=== PATIENT | male | born 1960 | race Caucasian/White ===

== ENCOUNTER 2017-10-06 11:45 | Inpatient (IN) | payer MEDICARE, MEDICAID ==
--- NOTE | 2017-10-06 11:54 | ED Physician Chart ---
ED Chief Complaint/HPI - Patient Information Date Seen:: 10/06/17 Time Seen:: 11:45 Chief Complaint:: Back Pain History of Present Illness:: onset x 3 days of back pain due to a sacral decubitus ulcer that will need debridement; pt denies recent trauma, H/As, neck pain, C/P, SOB, Abd. Pain, A/N/ V/D/C, fever, chills, or urinary s/s Historian:: Patient, EMS Review:: Nurse's Note Reviewed, EMS run form Reviewed ED Review of Systems - Review of Systems General/Constitutional: Fever, No chills, No weight loss, No weakness, No diaphoresis, No edema, No loss of appetite Skin: No skin lesions, No rash, No bruising Head: No headache, No light-headedness Eyes: No loss of vision, No pain, No diplopia ENT: No earache, No nasal drainage, No sore throat, No tinnitus Neck: No neck pain, No swelling, No thyromegaly, No stiffness, No mass noted Cardio Vascular: No chest pain, No palpitations, No PND, No orthopnea, No edema Pulmonary: No SOB, No cough, No sputum, No wheezing GI: No nausea, No vomiting, No diarrhea, No pain, No melena, No hematochezia, No constipation, No hematemesis G/U: No dysuria, No frequency, No hematuria Musculoskeletal: Bone or joint pain, Back pain, Muscle pain Endocrine: Polyuria, Polydipsia Psychiatric: Prior psych history, No depression, Anxiety, No suicidal ideation, No homicidal ideation, Auditory hallucination, No visual hallucination Hematopoietic: No bruising, No lymphadenopathy Allergic/Immuno: No urticaria, No angioedema Neurological: No syncope, No focal symptoms, No weakness, No paresthesia, No headache, No seizure, No dizziness, No confusion, No vertigo ED Past Medical History - Past Medical History Obtainable: Yes Past Medical History: HTN, DM, Asthma/COPD, Arthritis Family History: Diabetes Melitus, HTN Social History: Smoker, No Alcohol, No Drug Use, Single, Care Facility Surgical History: other (Bilateral BKA Surgery) Psychiatricy History: Schizophrenia Medication: Reviewed ED Physical Exam - Physical Examination General/Constitutional: Awake, Well-developed, well-nourished, Alert, No distress, GCS 15, Non-toxic appearing, Ambulatory Head: Atraumatic Eyes: Lids, conjuctiva normal, PERRL, EOMI Skin: Nl inspection, No rash, No skin lesions, No ecchymosis, Well hydrated, No lymphadenopathy Other Skin comments:: + Sacral Decubitus Ulcer with cellulitis ENMT: External ears, nose nl, TM canals nl, Nasal exam nl, Lips, teeth, gums nl , Oropharynx nl, Tonsils nl Neck: Nontender, Full ROM w/o pain, No JVD, No nuchal rigidity, No bruit, No mass, No stridor Respiratory: Nl effort/Exclusion, Clear to Auscultation, No Wheeze/Rhonchi/Rales Cardio Vascular: RRR, No murmur, gallop, rubs, NL S1 S2, Carotid/Femoral/Distal pulses equal bilaterally GI: No tenderness/rebounding/guarding, No organomegaly, No hernia, Normal BS's, Nondistended, No mass/bruits, No McBurney tenderness : No CVA tenderness Extremities: No tenderness or effusion, Full ROM, normal strength in all extremities, No edema, Normal digits & nails Neuro/Psych: Alert/oriented, DTR's symmetric, Normal sensory exam, Normal motor strength, Judgement/insight normal, Mood normal, Normal gait, No focal deficits Misc: Normal back, No paraspinal tenderness ED Labs/Radiology/EKG Results - Lab Results Comments:: WBC: 13.2; Na+: 134 - Radiology Results Comments:: NAD - EKG Interpretations EKG Time:: 12:00 Rate & Rhythm: 104; ST Comments:: non-specific st-t changes ED Septic Shock - . Is Septic Shock (SBP<90, OR Lactate>4 mmol\L) present?: No ED Reassessment (Disposition) - Reassessment Reassessment Condition:: Improved - Diagnosis Diagnosis:: Decubitus Ulcer; cellulitis; Leukocytosis; Hyponatremia - Aftercare/Follow up Instructions Aftercare/Follow-Up Instructions:: Counseled pt regarding lab results/diagnosis & need follow up - Patient Disposition Discharge/Transfer:: Acute Care w/in this hosp Accepting Physician:: Dr. Kraft Time Called:: 1300 Time Responded:: 13:00 Admitted to:: Med/Surg Spoke to:: Dr. Kraft Admitting Medical Physician:: Dr. Kraft Condition at Disposition:: Stable, Improved
--- NOTE | 2017-10-06 12:31 | Diagnostic Imaging Report ---
Portable chest x-ray History: Pain Allowing for portable technique the heart size is normal. No focal pulmonary parenchymal processes. No hilar or mediastinal abnormalities. Impression: No acute abnormalities.
[2017-10-06 12:35] LABS: URINE BILIRUBIN NEGATIVE (NEGATIVE); URINE BLOOD NEGATIVE (NEGATIVE); URINE GLUCOSE (UA) NEGATIVE (NEGATIVE); URINE KETONE NEGATIVE (NEGATIVE); URINE PROTEIN 100 mg/dL (NEGATIVE); URINE UROBILINOGEN 0.2 E.U./dL (0.2 - 1.0)
[2017-10-06 12:38] LABS: HEMOGLOBIN 17.3 gm/dL (12-16); MEAN CORPUSCULAR HGB CONC 33.3 pg (28.0-36.0); MEAN PLATELET VOLUME 8.5 fl; PLATELET COUNT 264 Th/cmm (150-400); RED BLOOD COUNT 5.97 Mil/cmm (4.30-5.70); RED CELL DISTRIBUTION WIDTH 14.4 % (11.5-20.0)
[2017-10-06 12:39] LABS: WHITE BLOOD COUNT 13.2 Th/cmm (4.8-10.8)
[2017-10-06 12:42] LABS: INR 1.08 (0.5-1.4); PROTHROMBIN TIME (TEST) 11.2 SECONDS (9.5-11.5)
[2017-10-06 12:53] LABS: ALB/GLOB RATIO 1.1 (1.0-1.8); ALKALINE PHOSPHATASE 82 U/L (34-104); ANION GAP 9.2 (7.0-16.0); BAND NEUTROPHILE 2 % (0-10); BILIRUBIN,TOTAL 0.4 mg/dL (0.3-1.0); BUN - UREA NITROGEN 11 mg/dL (7-25); BUN/CREATININE RATIO 18.3; CALCIUM SERUM 9.7 mg/dL (8.6-10.3); CARBON DIOXIDE 26.8 mEq/L (21.0-31.0); CHLORIDE 102 mEq/L (98-107); CREATININE - SERUM 0.6 mg/dL (0.7-1.3); EOSINOPHIL 4 % (0-5); GLUCOSE 139 mg/dL (70-105); NEUTROPHILS 75 % (40-80); SGOT 21 U/L (13-39); SGPT/ALT 16 U/L (7-52); SODIUM SERUM 134 mEq/L (136-145); TOTAL CELLS COUNTED 100
[2017-10-06 13:34] LABS: URINE COLOR YELLOW
[2017-10-06 13:36] LABS: URINE RBC 0-2 /hpf (0-5); URINE WBC 0-2 /hpf (0-5)
[2017-10-06 13:37] LABS: URINE BACTERIA OCCASIONAL /hpf (NONE SEEN); URINE EPITHELIAL CELLS FEW /lpf (FEW)
[2017-10-06 16:24] VITALS: BP 133/107
[2017-10-06] MEDS: HYDROmorphone 2 mg/mL 1mL Vial IVP PRN ×2 (18:01→21:40)
[2017-10-06] MEDS ORDERED: HYDROmorphone 2 mg/mL 1mL Vial IM PRN (19:42)
[2017-10-06] MEDS ORDERED: Magnesium Hydroxide (MOM) 30 mL UDC PO PRN (19:42)
[2017-10-06] MEDS ORDERED: INSULIN ASPART SLIDING SCALE 100 UNITS/ML UNIT SUBQ SCH (21:00)
[2017-10-06] MEDS ORDERED: Non-Formulary Item 1 EA (Amino Acids/Protein Hydrolys [Pro-Stat Awc Liquid] 30 ML) PO SCH (21:00)
[2017-10-06] MEDS: INSULIN ASPART, RECOMBINANT 100 UNITS/ML SUBQ SCH (21:53)
[2017-10-07] MEDS: HYDROmorphone 2 mg/mL 1mL Vial IVP PRN ×8 (00:45→23:47)
[2017-10-07] MEDS: INSULIN ASPART, RECOMBINANT 100 UNITS/ML SUBQ SCH ×4 (07:10→23:40)
[2017-10-07] MEDS: Aspirin 81mg Chewable Tab PO SCH (08:11)
[2017-10-07] MEDS ORDERED: Non-Formulary Item 1 EA (Duloxetine Hcl [Cymbalta] 20 MG) PO SCH (09:00)
[2017-10-07] MEDS ORDERED: Non-Formulary Item 1 EA (Arginine/Glutamine/Calcium Hmb [Juven Packet] 1 PDS) PO SCH (09:00)
[2017-10-07] MEDS: Multivitamin w/ Minerals Tab PO SCH ×2 (10:56→10:57)
--- NOTE | 2017-10-07 11:08 | Consultation ---
Consult Note - Consult Note Service Date: 10/07/17 Referring Physician: Yunier Kraft Consult Note: PHYSICIAN Consultation Note: Date of Admission: 10/06/17 Purpose of Consultation: Leukocytosis. Chief Complaint: Patient CHAPINCITO MCGEE was admitted to [facility] with DECUBITIS ULCER, CELLULITIS. History of Present Illness: 56 y male with history of DM2, B/L above knee amputations, obesity brought from SNF for 3 days of back pain due to right gluteal decubitus ulcer. He denies recent trauma, H/As, neck pain, C/P, SOB, Abd. Pain, A/N/V/D/C, fever, chills, or urinary s/s. Patient was started on vanco IV and ID consult was called for antibiotic management,. He was found to have middle finger burn wound with intact skin. Past Medical History: Allergies Allergy/AdvReac Type Severity Reaction Status Date / Time permethrin [From Elimite] Allergy Verified 10/06/17 11:56 pineapple Allergy Verified 10/06/17 11:56 Vital Signs Temp 97.5 F 10/07/17 08:00 Pulse 89 10/07/17 08:16 Resp 16 10/07/17 08:00 BP 161/94 10/07/17 08:16 Pulse Ox 92 10/07/17 08:00 Intake & Output 10/06/17 10/07/17 10/07/17 18:59 06:59 18:59 Intake Total 250 150 Balance 250 150 Weight (lbs) 74.843 kg 74.435 kg Intake: Intake, IV Amount 250 Vancomycin HCl 1 gm In 250 Sodium Chloride 0.9% 250 ml @ 165 mls/hr IV X1 ONE Rx#:[id number] Oral 150 Other: Stool Characteristics Liquid Liquid Liquid Laboratory Results - last 24 hr 10/06/17 10/07/17 21:46 07:09 POC Glucose 172 H 169 H Home Medication Medication Instructions Recorded Type Acetaminophen [Tylenol] 650 mg PO Q4HR PRN 10/06/17 History Amino Acids/Protein Hydrolys 30 ml PO TID 10/06/17 History [Pro-Stat Sugar Free Awc 887 ml] Amitriptyline HCl [Amitriptyline 50 mg PO HS 10/06/17 History HCl*] Amoxicillin [Amoxil] 500 mg PO Q8H 10/06/17 History Arginine/Glutamine/Calcium Hmb 1 pds PO BID 10/06/17 History [Carlos] Ascorbic Acid [Vitamin C] 500 mg PO DAILY 10/06/17 History Aspirin [Aspirin Chewable] 81 mg PO DAILY 10/06/17 History Baclofen [Baclofen*] 10 mg PO Q8H 10/06/17 History Cholecalciferol (Vitamin D3) 1 cap PO DAILY 10/06/17 History [Vitamin D3] Docusate Sodium [Colace] 100 mg PO Q6H 10/06/17 History Duloxetine HCl [Cymbalta] 20 mg PO DAILY 10/06/17 History HYDROmorphone [Dilaudid] 3 mg IM Q6H PRN 10/06/17 History Insulin Aspart, Recombinant 0 unit SUBQ ACHS 10/06/17 History [NovoLOG FLEXPEN] Lisinopril [Zestril] 10 mg PO DAILY 10/06/17 History Loratadine [Claritin] 10 mg PO DAILY 10/06/17 History Lorazepam [Ativan] 0.25 mg PO Q24H PRN 10/06/17 History Magnesium Hydroxide [Milk of 30 ml PO Q24H PRN 10/06/17 History Magnesia] Multivit-Min/Iron Fum/Folic AC 1 tab PO DAILY 10/06/17 History [Nature's Blend Multi Vitamin and Minerals] Pregabalin [Lyrica] 150 mg PO BID 10/06/17 History Zinc Gluconate 220 mg PO DAILY 10/06/17 History Current Medications Generic Name Dose Route Start Last Admin Trade Name Freq PRN Reason Stop Dose Admin Acetaminophen 650 mg 10/06/17 19:42 Tylenol PO 12/05/17 19:41 Q4HR PRN FEVER TEMP >101, AND MILD PAIN Amitriptyline HCl 50 mg 10/07/17 21:00 Elavil PO 12/06/17 20:59 HS AMPARO Ascorbic Acid 500 mg 10/07/17 09:00 10/07/17 08:12 Vitamin C PO 12/06/17 08:59 500 mg DAILY AMPARO Administration Aspirin 81 mg 10/07/17 09:00 10/07/17 08:11 Aspirin Chewable PO 12/06/17 08:59 81 mg DAILY AMPARO Administration Baclofen 10 mg 10/06/17 21:00 10/07/17 05:40 Lioresal PO 12/05/17 20:59 10 mg Q8HR AMPARO Administration Cholecalciferol 1,000 iu 10/07/17 11:00 10/07/17 10:58 Vitamin D3 PO 12/06/17 10:59 Not Given DAILY AMPARO Docusate Sodium 100 mg 10/06/17 19:45 10/07/17 08:24 Colace PO 12/05/17 19:44 Not Given Q6H [facility]ARO Hydromorphone HCl 2 mg 10/06/17 17:21 10/07/17 08:11 Dilaudid IVP 12/05/17 17:20 2 mg Q3HR PRN Administration Severe Pain Hydromorphone HCl 3 mg 10/06/17 19:42 Dilaudid IM 12/05/17 19:41 Q6H PRN PAIN (SEVERE PAIN) Vancomycin HCl 1.5 gm/ Sodium 500 mls @ 250 mls/hr 10/07/17 12:00 Chloride IV 12/06/17 11:59 Q12H [facility] Insulin Aspart 0 units 10/06/17 21:00 10/07/17 07:10 Novolog SUBQ 12/05/17 20:59 Not Given ACHS [facility] Protocol Lisinopril 10 mg 10/07/17 09:00 10/07/17 08:16 Zestril PO 12/06/17 08:59 10 mg DAILY [facility]ARO Administration Loratadine 10 mg 10/07/17 09:00 10/07/17 08:12 Claritin PO 12/06/17 08:59 10 mg DAILY [facility] Administration Lorazepam 0.25 mg 10/06/17 19:42 Ativan PO 12/05/17 19:41 Q24H PRN Anxiety Protocol Magnesium Hydroxide 30 ml 10/06/17 19:42 Milk Of Magnesia PO 12/05/17 19:41 Q24H PRN Constipation Miscellaneous 1 ea 10/06/17 17:26 Vancomycin Iv Per Pharmacy [facility] 12/05/17 17:25 PRN PRN PROTOCOL Miscellaneous 30 ml 10/06/17 21:00 Amino Acids/Protein Hydrolys [Pro-Stat Awc Liquid] PO 12/05/17 20:59 TID AMPARO Miscellaneous 1 pds 10/07/17 09:00 Arginine/Glutamine/Calcium Hmb [Carlos Packet] PO 12/06/17 08:59 BID AMPARO Miscellaneous 20 mg 10/07/17 09:00 Duloxetine Hcl [Cymbalta] PO 12/06/17 08:59 DAILY [facility] Ondansetron HCl 4 mg 10/06/17 17:21 Zofran IV 12/05/17 17:20 Q6H PRN Nausea / Vomiting Pregabalin 150 mg 10/07/17 09:00 10/07/17 08:12 Lyrica PO 12/06/17 08:59 150 mg BID [facility] Administration Zinc Sulfate 220 mg 10/07/17 11:00 10/07/17 10:58 Zinc Sulfate PO 12/06/17 10:59 Not Given DAILY [facility] Review of Systems: A 12 point ROS was reviewed with the pertinent positive and negatives noted in the HPI. Gen: Patient denies any fever, chills, night sweats, weight loss. C/o generalized weakness. HEENT: He denies any diplopia, photophobia, earache, sore throat. RS: He denies any cough or shortness of breath. CVS: He denies any CP, palpitations, and leg swelling. GI: He denies any abdominal pain, nausea, vomiting, diarrhea, loss of appetite. : He denies any dysuria, hematuria. MS: Denies any joint pain or swelling, denies any muscle pains. PIPE INSULATOR: Deneis any headaches, focal weakness, seizures. c/o dizziness since he has developed diarrhea. Social History Smoking Status Current every day smoker Drug Use Yes Alcohol Use Yes Family Medical History Family Medical History Start: 10/06/17 14: 26 Freq: ONCE Status: Active Document 10/06/17 17:03 CHEPE (Rec: 10/06/17 17:03 [id number]) Family Medical History Mother History Unknown Yes Physical Exam: General: Comfortable, obese. HEENT: Head: Normocephalic, atraumatic. Oral cavity moist pink tongue, eyes: no pallor, no icterus. Neck: supple no javd, no carotid bruit. Cardio: S1 and S2 WNL. Respiratory: Vesicular breath sounds. Abdominal: Soft NT ND BS. Genital/Urinary: deferred. Extremities: B/l AKAs Neurological: AA ox3, SKIN: There is stage 4 right gluteal wound with out erythema and discharge. No tenderness. Assessment: 1, Right Gluteal wound. 2. Right middle finger burn wound. 3. DM2. Plan: Wound care only. Thank you, Dr Kraft for involving me in taking care of this patient. Signed, Rajan Stoll M.D. [id number]/07/[id number]
[2017-10-07] MEDS: Vancomycin HCl 1.5 GM in Sodium Chloride 0.9% 500 ML IV SCH ×2 (12:11→23:48)
[2017-10-08] MEDS: HYDROmorphone 2 mg/mL 1mL Vial IVP PRN ×7 (02:51→22:17)
[2017-10-08] MEDS: INSULIN ASPART, RECOMBINANT 100 UNITS/ML SUBQ SCH ×4 (07:43→21:30)
--- NOTE | 2017-10-08 08:59 | History and Physical ---
History of Present Illness - HPI Vital Signs: Last Vital Signs Temp 98.7 F 10/08/17 04:00 Pulse 83 10/08/17 04:00 Resp 17 10/08/17 04:00 BP 126/78 10/08/17 04:00 Pulse Ox 96 10/08/17 04:00 Family Medical History - Family Member Mother History Unknown: Yes Living Status: Hx Family COPD: Yes - Medications Home Medications: Home Medication Medication Instructions Recorded Type Acetaminophen [Tylenol] 650 mg PO Q4HR PRN 10/06/17 History Amino Acids/Protein Hydrolys 30 ml PO TID 10/06/17 History [Pro-Stat Sugar Free Awc 887 ml] Amitriptyline HCl [Amitriptyline 50 mg PO HS 10/06/17 History HCl*] Amoxicillin [Amoxil] 500 mg PO Q8H 10/06/17 History Arginine/Glutamine/Calcium Hmb 1 pds PO BID 10/06/17 History [Carlos] Ascorbic Acid [Vitamin C] 500 mg PO DAILY 10/06/17 History Aspirin [Aspirin Chewable] 81 mg PO DAILY 10/06/17 History Baclofen [Baclofen*] 10 mg PO Q8H 10/06/17 History Cholecalciferol (Vitamin D3) 1 cap PO DAILY 10/06/17 History [Vitamin D3] Docusate Sodium [Colace] 100 mg PO Q6H 10/06/17 History Duloxetine HCl [Cymbalta] 20 mg PO DAILY 10/06/17 History HYDROmorphone [Dilaudid] 3 mg IM Q6H PRN 10/06/17 History Insulin Aspart, Recombinant 0 unit SUBQ ACHS 10/06/17 History [NovoLOG FLEXPEN] Lisinopril [Zestril] 10 mg PO DAILY 10/06/17 History Loratadine [Claritin] 10 mg PO DAILY 10/06/17 History Lorazepam [Ativan] 0.25 mg PO Q24H PRN 10/06/17 History Magnesium Hydroxide [Milk of 30 ml PO Q24H PRN 10/06/17 History Magnesia] Multivit-Min/Iron Fum/Folic AC 1 tab PO DAILY 10/06/17 History [Nature's Blend Multi Vitamin and Minerals] Pregabalin [Lyrica] 150 mg PO BID 10/06/17 History Zinc Gluconate 220 mg PO DAILY 10/06/17 History - Allergies Allergies/Adverse Reactions: Allergies Allergy/AdvReac Type Severity Reaction Status Date / Time permethrin [From Elimite] Allergy Verified 10/06/17 11:56 pineapple Allergy Verified 10/06/17 11:56 - Lab Results All Lab Results last 24 hours: Laboratory Results - last 24 hr 10/07/17 10/07/17 10/07/17 10:55 16:31 20:49 POC Glucose 181 H 170 H 165 H 10/08/17 06:08 POC Glucose 146 H - Assessment Assessment: Current Active Problems Problem Status Onset FESTERING COCCYX PRESSURE ULCER Acute
[2017-10-08] MEDS: Multivitamin w/ Minerals Tab PO SCH (09:46)
[2017-10-08] MEDS: Aspirin 81mg Chewable Tab PO SCH (09:46)
[2017-10-08] MEDS: Vancomycin HCl 1.5 GM in Sodium Chloride 0.9% 500 ML IV SCH ×2 (12:21→20:22)
[2017-10-08] MEDS: Venelex 60gm Tube TP SCH (12:42)
--- NOTE | 2017-10-08 13:07 | Infectious Disease Prog Note ---
Infectious Disease Subjective - Review of Systems Service Date: 10/08/17 Subjective: no change. Infectious Disease Objective - Results Result Diagrams: 10/06/17 12:10 10/06/17 12:10 Recent Labs: Laboratory Last Values WBC 13.2 Th/cmm (4.8-10.8) H 10/06/17 12:10 RBC 5.97 Mil/cmm (4.30-5.70) H 10/06/17 12:10 Hgb 17.3 gm/dL (12-16) 10/06/17 12:10 Hct 52.0 % (41.0-60) 10/06/17 12:10 MCV 87.0 fl (80-99) 10/06/17 12:10 MCH 29.0 pg (26.0-30.0) 10/06/17 12:10 MCHC Differential 33.3 pg (28.0-36.0) 10/06/17 12:10 RDW 14.4 % (11.5-20.0) 10/06/17 12:10 Plt Count 264 Th/cmm (150-400) 10/06/17 12:10 MPV 8.5 fl 10/06/17 12:10 Band Neutrophils % 2 % (0-10) 10/06/17 12:10 Neutrophils (Manual) 75 % (40-80) 10/06/17 12:10 Lymphocytes 12 % (20-50) L 10/06/17 12:10 Monocytes 7 % (2-10) 10/06/17 12:10 Eosinophils 4 % (0-5) 10/06/17 12:10 PT 11.2 SECONDS (9.5-11.5) 10/06/17 12:10 INR 1.08 (0.5-1.4) 10/06/17 12:10 PTT (Actin FS) 33.4 SECONDS (26.0-38.0) 10/06/17 12:10 Sodium 134 mEq/L (136-145) L 10/06/17 12:10 Potassium 4.0 mEq/L (3.5-5.1) 10/06/17 12:10 Chloride 102 mEq/L (98-107) 10/06/17 12:10 Carbon Dioxide 26.8 mEq/L (21.0-31.0) 10/06/17 12:10 Anion Gap 9.2 (7.0-16.0) 10/06/17 12:10 BUN 11 mg/dL (7-25) 10/06/17 12:10 Creatinine 0.6 mg/dL (0.7-1.3) L 10/06/17 12:10 Est GFR ( Amer) > 60.0 ml/min (>90) 10/06/17 12:10 Est GFR (Non-Af Amer) > 60.0 ml/min 10/06/17 12:10 BUN/Creatinine Ratio 18.3 10/06/17 12:10 Glucose 139 mg/dL (70-105) H 10/06/17 12:10 POC Glucose 136 MG/DL (70 - 105) H 10/08/17 11:35 Whole Bld Lactic Acid 1.53 mmol/L (0.60-1.99) 10/06/17 12:10 Calcium 9.7 mg/dL (8.6-10.3) 10/06/17 12:10 Total Bilirubin 0.4 mg/dL (0.3-1.0) 10/06/17 12:10 AST 21 U/L (13-39) 10/06/17 12:10 ALT 16 U/L (7-52) 10/06/17 12:10 Alkaline Phosphatase 82 U/L (34-104) 10/06/17 12:10 Creatine Kinase 207 U/L (30-223) 10/06/17 12:10 Total Protein 7.5 gm/dL (6.0-8.3) 10/06/17 12:10 Albumin 3.9 gm/dL (4.2-5.5) L 10/06/17 12:10 Globulin 3.6 gm/dL 10/06/17 12:10 Albumin/Globulin Ratio 1.1 (1.0-1.8) 10/06/17 12:10 Urine Source MIDSTREAM 10/06/17 12:23 Urine Color YELLOW 10/06/17 12:23 Urine Clarity CLEAR (CLEAR) 10/06/17 12:23 Urine pH 7.0 (4.6 - 8.0) 10/06/17 12:23 Ur Specific [place] 1.010 (1.005-1.030) 10/06/17 12:23 Urine Protein 100 mg/dL (NEGATIVE) H 10/06/17 12:23 Urine Glucose (UA) NEGATIVE mg/dL (NEGATIVE) 10/06/17 12:23 Urine Ketones NEGATIVE mg/dL (NEGATIVE) 10/06/17 12:23 Urine Blood NEGATIVE (NEGATIVE) 10/06/17 12:23 Urine Nitrate NEGATIVE (NEGATIVE) 10/06/17 12:23 Urine Bilirubin NEGATIVE (NEGATIVE) 10/06/17 12:23 Urine Urobilinogen 0.2 E.U./dL (0.2 - 1.0) 10/06/17 12:23 Ur Leukocyte Esterase NEGATIVE (NEGATIVE) 10/06/17 12:23 Urine RBC 0-2 /hpf (0-5) H 10/06/17 12:23 Urine WBC 0-2 /hpf (0-5) 10/06/17 12:23 Ur Epithelial Cells FEW /lpf (FEW) 10/06/17 12:23 Urine Bacteria OCCASIONAL /hpf (NONE SEEN) 10/06/17 12:23 Vancomycin Trough 14.1 ug/mL (10-20) 10/08/17 11:00 - Physical Exam Vitals and I&O: Vital Signs Temp 97.0 F 10/08/17 08:00 Pulse 76 10/08/17 09:46 Resp 18 10/08/17 08:00 BP 110/54 10/08/17 09:46 Pulse Ox 95 10/08/17 08:00 Intake & Output 10/07/17 10/08/17 10/08/17 18:59 06:59 18:59 Intake Total 500 2650 Output Total 1800 Balance 500 850 Weight (lbs) 74.389 kg Intake: Intake, IV Amount 500 500 Vancomycin HCl 1.5 gm In 500 500 Sodium Chloride 0.9% 500 ml @ 250 mls/hr IV Q12H AMPARO Rx#:[id number] Oral 2150 Output: Urine 1800 Other: # Voids 2 # Bowel Movements 1 Stool Characteristics Liquid Liquid Liquid Active Medications: Current Medications Acetaminophen (Tylenol) 650 mg PO Q4HR PRN PRN Reason: FEVER TEMP >101, AND MILD PAIN Stop: 12/05/17 19:41 Amitriptyline HCl (Elavil) 50 mg PO HS AMPARO Stop: 12/06/17 20:59 Last Admin: 10/07/17 20:45 Dose: 50 mg Ascorbic Acid (Vitamin C) 500 mg PO DAILY [facility]O Stop: 12/06/17 08:59 Last Admin: 10/08/17 09:46 Dose: 500 mg Aspirin (Aspirin Chewable) 81 mg PO DAILY [facility] Stop: 12/06/17 08:59 Last Admin: 10/08/17 09:46 Dose: 81 mg Baclofen (Lioresal) 10 mg PO Q8HR [facility] Stop: 12/05/17 20:59 Last Admin: 10/08/17 12:22 Dose: 10 mg Cholecalciferol (Vitamin D3) 1,000 iu PO DAILY [facility] Stop: 12/06/17 10:59 Last Admin: 10/08/17 09:46 Dose: 1,000 iu Docusate Sodium (Colace) 100 mg PO Q6H [facility] Stop: 12/05/17 19:44 Last Admin: 10/08/17 08:36 Dose: Not Given Hydromorphone HCl (Dilaudid) 2 mg IVP Q3HR PRN PRN Reason: Severe Pain Stop: 12/05/17 17:20 Last Admin: 10/08/17 12:22 Dose: 2 mg Hydromorphone HCl (Dilaudid) 3 mg IM Q6H PRN PRN Reason: PAIN (SEVERE PAIN) Stop: 12/05/17 19:41 Vancomycin HCl 1.5 gm/ Sodium (Chloride) 500 mls @ 250 mls/hr IV Q12H [facility] Stop: 12/06/17 11:59 Last Admin: 10/08/17 12:21 Dose: 250 mls/hr Insulin Aspart (Novolog) 0 units SUBQ ACHS [facility]ARO PRN Reason: Protocol Stop: 12/05/17 20:59 Last Admin: 10/08/17 11:51 Dose: Not Given Lisinopril (Zestril) 10 mg PO DAILY [facility] Stop: 12/06/17 08:59 Last Admin: 10/08/17 09:46 Dose: 10 mg Loratadine (Claritin) 10 mg PO DAILY [facility] Stop: 12/06/17 08:59 Last Admin: 10/08/17 09:46 Dose: 10 mg Lorazepam (Ativan) 0.25 mg PO Q24H PRN; Protocol PRN Reason: Anxiety Stop: 12/05/17 19:41 Magnesium Hydroxide (Milk Of Magnesia) 30 ml PO Q24H PRN PRN Reason: Constipation Stop: 12/05/17 19:41 Miscellaneous (Vancomycin Iv Per Pharmacy) 1 ea PRN PRN PRN Reason: PROTOCOL Stop: 12/05/17 17:25 Miscellaneous (Duloxetine Hcl [Cymbalta]) 20 mg PO DAILY [facility] Stop: 12/06/17 08:59 Ondansetron HCl (Zofran) 4 mg IV Q6H PRN PRN Reason: Nausea / Vomiting Stop: 12/05/17 17:20 Pregabalin (Lyrica) 150 mg PO BID [facility] Stop: 12/06/17 08:59 Last Admin: 10/08/17 09:46 Dose: 150 mg Zinc Sulfate (Zinc Sulfate) 220 mg PO DAILY [facility] Stop: 12/06/17 10:59 Last Admin: 10/08/17 09:46 Dose: 220 mg General: no acute distress, well developed, well nourished HEENT: atraumatic, normocephalic, PERRLA Neck: supple, no thyromegaly Cardiovascular: S1S2, regular Lungs: clear to auscultation bilaterally, clear to percussion Abdomen: soft, other (right gluteal wound.), no tender, no distended Extremities: no cyanosis, no clubbing, no edema Neurological: awake Skin: other (right gluteal wound.) Infectious Disease Assmt/Plan - Problem List Patient Problems: All Active Problems FESTERING COCCYX PRESSURE ULCER (Acute) - Assessment Assessment: 1. right gluteal wound, no s/o infection. - Plan Plan: Wound care.
[2017-10-08] MEDS ORDERED: Vancomycin HCl 1.5 GM in Sodium Chloride 0.9% 500 ML IV SCH (14:00)
--- NOTE | 2017-10-08 15:37 | General Progress Note ---
Subjective - Review of Systems Service Date: 10/08/17 Events since last encounter: minimal info on chart on onset of right gluteal ulcer has bilateral AKA refused to have ulcer examined, very nasty language-alexis local wound care Objective - Results Result Diagrams: 10/06/17 12:10 10/06/17 12:10 Recent Labs: Laboratory Last Values WBC 13.2 Th/cmm (4.8-10.8) H 10/06/17 12:10 RBC 5.97 Mil/cmm (4.30-5.70) H 10/06/17 12:10 Hgb 17.3 gm/dL (12-16) 10/06/17 12:10 Hct 52.0 % (41.0-60) 10/06/17 12:10 MCV 87.0 fl (80-99) 10/06/17 12:10 MCH 29.0 pg (26.0-30.0) 10/06/17 12:10 MCHC Differential 33.3 pg (28.0-36.0) 10/06/17 12:10 RDW 14.4 % (11.5-20.0) 10/06/17 12:10 Plt Count 264 Th/cmm (150-400) 10/06/17 12:10 MPV 8.5 fl 10/06/17 12:10 Band Neutrophils % 2 % (0-10) 10/06/17 12:10 Neutrophils (Manual) 75 % (40-80) 10/06/17 12:10 Lymphocytes 12 % (20-50) L 10/06/17 12:10 Monocytes 7 % (2-10) 10/06/17 12:10 Eosinophils 4 % (0-5) 10/06/17 12:10 PT 11.2 SECONDS (9.5-11.5) 10/06/17 12:10 INR 1.08 (0.5-1.4) 10/06/17 12:10 PTT (Actin FS) 33.4 SECONDS (26.0-38.0) 10/06/17 12:10 Sodium 134 mEq/L (136-145) L 10/06/17 12:10 Potassium 4.0 mEq/L (3.5-5.1) 10/06/17 12:10 Chloride 102 mEq/L (98-107) 10/06/17 12:10 Carbon Dioxide 26.8 mEq/L (21.0-31.0) 10/06/17 12:10 Anion Gap 9.2 (7.0-16.0) 10/06/17 12:10 BUN 11 mg/dL (7-25) 10/06/17 12:10 Creatinine 0.6 mg/dL (0.7-1.3) L 10/06/17 12:10 Est GFR ( Amer) > 60.0 ml/min (>90) 10/06/17 12:10 Est GFR (Non-Af Amer) > 60.0 ml/min 10/06/17 12:10 BUN/Creatinine Ratio 18.3 10/06/17 12:10 Glucose 139 mg/dL (70-105) H 10/06/17 12:10 POC Glucose 136 MG/DL (70 - 105) H 10/08/17 11:35 Whole Bld Lactic Acid 1.53 mmol/L (0.60-1.99) 10/06/17 12:10 Calcium 9.7 mg/dL (8.6-10.3) 10/06/17 12:10 Total Bilirubin 0.4 mg/dL (0.3-1.0) 10/06/17 12:10 AST 21 U/L (13-39) 10/06/17 12:10 ALT 16 U/L (7-52) 10/06/17 12:10 Alkaline Phosphatase 82 U/L (34-104) 10/06/17 12:10 Creatine Kinase 207 U/L (30-223) 10/06/17 12:10 Total Protein 7.5 gm/dL (6.0-8.3) 10/06/17 12:10 Albumin 3.9 gm/dL (4.2-5.5) L 10/06/17 12:10 Globulin 3.6 gm/dL 10/06/17 12:10 Albumin/Globulin Ratio 1.1 (1.0-1.8) 10/06/17 12:10 Urine Source MIDSTREAM 10/06/17 12:23 Urine Color YELLOW 10/06/17 12:23 Urine Clarity CLEAR (CLEAR) 10/06/17 12:23 Urine pH 7.0 (4.6 - 8.0) 10/06/17 12:23 Ur Specific [place] 1.010 (1.005-1.030) 10/06/17 12:23 Urine Protein 100 mg/dL (NEGATIVE) H 10/06/17 12:23 Urine Glucose (UA) NEGATIVE mg/dL (NEGATIVE) 10/06/17 12:23 Urine Ketones NEGATIVE mg/dL (NEGATIVE) 10/06/17 12:23 Urine Blood NEGATIVE (NEGATIVE) 10/06/17 12:23 Urine Nitrate NEGATIVE (NEGATIVE) 10/06/17 12:23 Urine Bilirubin NEGATIVE (NEGATIVE) 10/06/17 12:23 Urine Urobilinogen 0.2 E.U./dL (0.2 - 1.0) 10/06/17 12:23 Ur Leukocyte Esterase NEGATIVE (NEGATIVE) 10/06/17 12:23 Urine RBC 0-2 /hpf (0-5) H 10/06/17 12:23 Urine WBC 0-2 /hpf (0-5) 10/06/17 12:23 Ur Epithelial Cells FEW /lpf (FEW) 10/06/17 12:23 Urine Bacteria OCCASIONAL /hpf (NONE SEEN) 10/06/17 12:23 Vancomycin Trough 14.1 ug/mL (10-20) 10/08/17 11:00 - Physical Exam Vitals and I&O: Vital Signs Temp 96.3 F 10/08/17 12:00 Pulse 77 10/08/17 12:00 Resp 18 10/08/17 12:00 BP 127/70 10/08/17 12:00 Pulse Ox 95 10/08/17 12:00 Intake & Output 10/07/17 10/08/17 10/08/17 18:59 06:59 18:59 Intake Total 500 2650 Output Total 1800 Balance 500 850 Weight (lbs) 74.389 kg Intake: Intake, IV Amount 500 500 Vancomycin HCl 1.5 gm In 500 500 Sodium Chloride 0.9% 500 ml @ 250 mls/hr IV Q12H [facility] Rx#:[id number] Oral 2150 Output: Urine 1800 Other: # Voids 2 # Bowel Movements 1 Stool Characteristics Liquid Liquid Liquid Active Medications: Current Medications Acetaminophen (Tylenol) 650 mg PO Q4HR PRN PRN Reason: FEVER TEMP >101, AND MILD PAIN Stop: 12/05/17 19:41 Amitriptyline HCl (Elavil) 50 mg PO HS [facility] Stop: 12/06/17 20:59 Last Admin: 10/07/17 20:45 Dose: 50 mg Ascorbic Acid (Vitamin C) 500 mg PO DAILY [facility] Stop: 12/06/17 08:59 Last Admin: 10/08/17 09:46 Dose: 500 mg Aspirin (Aspirin Chewable) 81 mg PO DAILY [facility] Stop: 12/06/17 08:59 Last Admin: 10/08/17 09:46 Dose: 81 mg Baclofen (Lioresal) 10 mg PO Q8HR [facility] Stop: 12/05/17 20:59 Last Admin: 10/08/17 12:22 Dose: 10 mg Cholecalciferol (Vitamin D3) 1,000 iu PO DAILY [facility] Stop: 12/06/17 10:59 Last Admin: 10/08/17 09:46 Dose: 1,000 iu Docusate Sodium (Colace) 100 mg PO Q6H [facility] Stop: 12/05/17 19:44 Last Admin: 10/08/17 14:43 Dose: Not Given Hydromorphone HCl (Dilaudid) 2 mg IVP Q3HR PRN PRN Reason: Severe Pain Stop: 12/05/17 17:20 Last Admin: 10/08/17 12:22 Dose: 2 mg Hydromorphone HCl (Dilaudid) 3 mg IM Q6H PRN PRN Reason: PAIN (SEVERE PAIN) Stop: 12/05/17 19:41 Vancomycin HCl 1.5 gm/ Sodium (Chloride) 500 mls @ 250 mls/hr IV Q12H [facility] Stop: 12/07/17 20:59 Insulin Aspart (Novolog) 0 units SUBQ ACHS [facility] PRN Reason: Protocol Stop: 12/05/17 20:59 Last Admin: 10/08/17 11:51 Dose: Not Given Lisinopril (Zestril) 10 mg PO DAILY [facility] Stop: 12/06/17 08:59 Last Admin: 10/08/17 09:46 Dose: 10 mg Loratadine (Claritin) 10 mg PO DAILY [facility] Stop: 12/06/17 08:59 Last Admin: 10/08/17 09:46 Dose: 10 mg Lorazepam (Ativan) 0.25 mg PO Q24H PRN; Protocol PRN Reason: Anxiety Stop: 12/05/17 19:41 Magnesium Hydroxide (Milk Of Magnesia) 30 ml PO Q24H PRN PRN Reason: Constipation Stop: 12/05/17 19:41 Miscellaneous (Vancomycin Iv Per Pharmacy) 1 ea [facility] PRN PRN PRN Reason: PROTOCOL Stop: 12/05/17 17:25 Miscellaneous (Duloxetine Hcl [Cymbalta]) 20 mg PO DAILY [facility] Stop: 12/06/17 08:59 Ondansetron HCl (Zofran) 4 mg IV Q6H PRN PRN Reason: Nausea / Vomiting Stop: 12/05/17 17:20 Pregabalin (Lyrica) 150 mg PO BID [facility] Stop: 12/06/17 08:59 Last Admin: 10/08/17 09:46 Dose: 150 mg Zinc Sulfate (Zinc Sulfate) 220 mg PO DAILY [facility] Stop: 12/06/17 10:59 Last Admin: 10/08/17 09:46 Dose: 220 mg Assessment/Plan - Problem List Patient Problems: All Active Problems FESTERING COCCYX PRESSURE ULCER (Acute)
--- NOTE | 2017-10-08 15:42 | General Progress Note ---
Subjective - Review of Systems Service Date: 10/08/17 Events since last encounter: recommend: debridement of stage 4 right hip ulcer with wound vac application Objective - Results Result Diagrams: 10/06/17 12:10 10/06/17 12:10 Recent Labs: Laboratory Last Values WBC 13.2 Th/cmm (4.8-10.8) H 10/06/17 12:10 RBC 5.97 Mil/cmm (4.30-5.70) H 10/06/17 12:10 Hgb 17.3 gm/dL (12-16) 10/06/17 12:10 Hct 52.0 % (41.0-60) 10/06/17 12:10 MCV 87.0 fl (80-99) 10/06/17 12:10 MCH 29.0 pg (26.0-30.0) 10/06/17 12:10 MCHC Differential 33.3 pg (28.0-36.0) 10/06/17 12:10 RDW 14.4 % (11.5-20.0) 10/06/17 12:10 Plt Count 264 Th/cmm (150-400) 10/06/17 12:10 MPV 8.5 fl 10/06/17 12:10 Band Neutrophils % 2 % (0-10) 10/06/17 12:10 Neutrophils (Manual) 75 % (40-80) 10/06/17 12:10 Lymphocytes 12 % (20-50) L 10/06/17 12:10 Monocytes 7 % (2-10) 10/06/17 12:10 Eosinophils 4 % (0-5) 10/06/17 12:10 PT 11.2 SECONDS (9.5-11.5) 10/06/17 12:10 INR 1.08 (0.5-1.4) 10/06/17 12:10 PTT (Actin FS) 33.4 SECONDS (26.0-38.0) 10/06/17 12:10 Sodium 134 mEq/L (136-145) L 10/06/17 12:10 Potassium 4.0 mEq/L (3.5-5.1) 10/06/17 12:10 Chloride 102 mEq/L (98-107) 10/06/17 12:10 Carbon Dioxide 26.8 mEq/L (21.0-31.0) 10/06/17 12:10 Anion Gap 9.2 (7.0-16.0) 10/06/17 12:10 BUN 11 mg/dL (7-25) 10/06/17 12:10 Creatinine 0.6 mg/dL (0.7-1.3) L 10/06/17 12:10 Est GFR ( Amer) > 60.0 ml/min (>90) 10/06/17 12:10 Est GFR (Non-Af Amer) > 60.0 ml/min 10/06/17 12:10 BUN/Creatinine Ratio 18.3 10/06/17 12:10 Glucose 139 mg/dL (70-105) H 10/06/17 12:10 POC Glucose 136 MG/DL (70 - 105) H 10/08/17 11:35 Whole Bld Lactic Acid 1.53 mmol/L (0.60-1.99) 10/06/17 12:10 Calcium 9.7 mg/dL (8.6-10.3) 10/06/17 12:10 Total Bilirubin 0.4 mg/dL (0.3-1.0) 10/06/17 12:10 AST 21 U/L (13-39) 10/06/17 12:10 ALT 16 U/L (7-52) 10/06/17 12:10 Alkaline Phosphatase 82 U/L (34-104) 10/06/17 12:10 Creatine Kinase 207 U/L (30-223) 10/06/17 12:10 Total Protein 7.5 gm/dL (6.0-8.3) 10/06/17 12:10 Albumin 3.9 gm/dL (4.2-5.5) L 10/06/17 12:10 Globulin 3.6 gm/dL 10/06/17 12:10 Albumin/Globulin Ratio 1.1 (1.0-1.8) 10/06/17 12:10 Urine Source MIDSTREAM 10/06/17 12:23 Urine Color YELLOW 10/06/17 12:23 Urine Clarity CLEAR (CLEAR) 10/06/17 12:23 Urine pH 7.0 (4.6 - 8.0) 10/06/17 12:23 Ur Specific [place] 1.010 (1.005-1.030) 10/06/17 12:23 Urine Protein 100 mg/dL (NEGATIVE) H 10/06/17 12:23 Urine Glucose (UA) NEGATIVE mg/dL (NEGATIVE) 10/06/17 12:23 Urine Ketones NEGATIVE mg/dL (NEGATIVE) 10/06/17 12:23 Urine Blood NEGATIVE (NEGATIVE) 10/06/17 12:23 Urine Nitrate NEGATIVE (NEGATIVE) 10/06/17 12:23 Urine Bilirubin NEGATIVE (NEGATIVE) 10/06/17 12:23 Urine Urobilinogen 0.2 E.U./dL (0.2 - 1.0) 10/06/17 12:23 Ur Leukocyte Esterase NEGATIVE (NEGATIVE) 10/06/17 12:23 Urine RBC 0-2 /hpf (0-5) H 10/06/17 12:23 Urine WBC 0-2 /hpf (0-5) 10/06/17 12:23 Ur Epithelial Cells FEW /lpf (FEW) 10/06/17 12:23 Urine Bacteria OCCASIONAL /hpf (NONE SEEN) 10/06/17 12:23 Vancomycin Trough 14.1 ug/mL (10-20) 10/08/17 11:00 - Physical Exam Vitals and I&O: Vital Signs Temp 96.3 F 10/08/17 12:00 Pulse 77 10/08/17 12:00 Resp 18 10/08/17 12:00 BP 127/70 10/08/17 12:00 Pulse Ox 95 10/08/17 12:00 Intake & Output 10/07/17 10/08/17 10/08/17 18:59 06:59 18:59 Intake Total 500 2650 Output Total 1800 Balance 500 850 Weight (lbs) 74.389 kg Intake: Intake, IV Amount 500 500 Vancomycin HCl 1.5 gm In 500 500 Sodium Chloride 0.9% 500 ml @ 250 mls/hr IV Q12H [facility] Rx#:[id number] Oral 2150 Output: Urine 1800 Other: # Voids 2 # Bowel Movements 1 Stool Characteristics Liquid Liquid Liquid Active Medications: Current Medications Acetaminophen (Tylenol) 650 mg PO Q4HR PRN PRN Reason: FEVER TEMP >101, AND MILD PAIN Stop: 12/05/17 19:41 Amitriptyline HCl (Elavil) 50 mg PO HS [facility] Stop: 12/06/17 20:59 Last Admin: 10/07/17 20:45 Dose: 50 mg Ascorbic Acid (Vitamin C) 500 mg PO DAILY [facility] Stop: 12/06/17 08:59 Last Admin: 10/08/17 09:46 Dose: 500 mg Aspirin (Aspirin Chewable) 81 mg PO DAILY [facility] Stop: 12/06/17 08:59 Last Admin: 10/08/17 09:46 Dose: 81 mg Baclofen (Lioresal) 10 mg PO Q8HR [facility] Stop: 12/05/17 20:59 Last Admin: 10/08/17 12:22 Dose: 10 mg Cholecalciferol (Vitamin D3) 1,000 iu PO DAILY [facility] Stop: 12/06/17 10:59 Last Admin: 10/08/17 09:46 Dose: 1,000 iu Docusate Sodium (Colace) 100 mg PO Q6H [facility] Stop: 12/05/17 19:44 Last Admin: 10/08/17 14:43 Dose: Not Given Hydromorphone HCl (Dilaudid) 2 mg IVP Q3HR PRN PRN Reason: Severe Pain Stop: 12/05/17 17:20 Last Admin: 10/08/17 12:22 Dose: 2 mg Hydromorphone HCl (Dilaudid) 3 mg IM Q6H PRN PRN Reason: PAIN (SEVERE PAIN) Stop: 12/05/17 19:41 Vancomycin HCl 1.5 gm/ Sodium (Chloride) 500 mls @ 250 mls/hr IV Q12H [facility] Stop: 12/07/17 20:59 Insulin Aspart (Novolog) 0 units SUBQ ACHS [facility] PRN Reason: Protocol Stop: 12/05/17 20:59 Last Admin: 10/08/17 11:51 Dose: Not Given Lisinopril (Zestril) 10 mg PO DAILY [facility] Stop: 12/06/17 08:59 Last Admin: 10/08/17 09:46 Dose: 10 mg Loratadine (Claritin) 10 mg PO DAILY [facility] Stop: 12/06/17 08:59 Last Admin: 10/08/17 09:46 Dose: 10 mg Lorazepam (Ativan) 0.25 mg PO Q24H PRN; Protocol PRN Reason: Anxiety Stop: 12/05/17 19:41 Magnesium Hydroxide (Milk Of Magnesia) 30 ml PO Q24H PRN PRN Reason: Constipation Stop: 12/05/17 19:41 Miscellaneous (Vancomycin Iv Per Pharmacy) 1 ea [facility] PRN PRN PRN Reason: PROTOCOL Stop: 12/05/17 17:25 Miscellaneous (Duloxetine Hcl [Cymbalta]) 20 mg PO DAILY [facility] Stop: 12/06/17 08:59 Ondansetron HCl (Zofran) 4 mg IV Q6H PRN PRN Reason: Nausea / Vomiting Stop: 12/05/17 17:20 Pregabalin (Lyrica) 150 mg PO BID [facility] Stop: 12/06/17 08:59 Last Admin: 10/08/17 09:46 Dose: 150 mg Zinc Sulfate (Zinc Sulfate) 220 mg PO DAILY [facility] Stop: 12/06/17 10:59 Last Admin: 10/08/17 09:46 Dose: 220 mg Assessment/Plan - Problem List Patient Problems: All Active Problems FESTERING COCCYX PRESSURE ULCER (Acute)
--- NOTE | 2017-10-08 19:58 | History & Physical ---
ADMIT DATE: 10/06/2017 HISTORY OF PRESENT ILLNESS: This is a patient admitted from ____ Longterm with a history of decubiti, bilateral above-knee amputation and history of severe depression. A 56-year-old male patient known to have history of diabetes, above-knee bilateral amputation and the patient has been complaining of back pain, decubiti ulcer and the patient was seen in the Emergency Room, was admitted for care of his decubiti ulcer. The patient was found to have a mid finger burn wound, probably secondary to his smoking. The patient is unable to give me much history except for having problem with his sacral decubiti. REVIEW OF SYSTEMS: Other than back pain and sacral pain and depression, everything else was negative. PHYSICAL EXAMINATION: GENERAL: Comfortable. HEENT: The patient is normocephalic. Pupils are equal, reactive to light. NECK: Supple, nontender. LUNGS: Clear. CARDIOVASCULAR SYSTEM: S1, S2 heard. EXTREMITIES: Bilateral above-knee amputation and the patient has a 4 stage for gluteal wound without erythema on discharge. No tenderness. DIAGNOSES: Status post right gluteal wound, sacral wound, right middle finger burn wound, diabetes mellitus type 2, history of bilateral above-knee amputation and history of severe depression. PLAN: The patient is going to be admitted and I will have Dr. Rajan Stoll ID see the patient for wound, and I will also call the psychiatrist and I will follow the patient. JOB# [id number]
[2017-10-09] MEDS: HYDROmorphone 2 mg/mL 1mL Vial IVP PRN ×5 (02:37→15:12)
[2017-10-09] MEDS: INSULIN ASPART, RECOMBINANT 100 UNITS/ML SUBQ SCH ×2 (07:02→13:50)
[2017-10-09] MEDS: Multivitamin w/ Minerals Tab PO SCH (08:56)
[2017-10-09] MEDS: Aspirin 81mg Chewable Tab PO SCH (08:57)
[2017-10-09] MEDS: Vancomycin HCl 1.5 GM in Sodium Chloride 0.9% 500 ML IV SCH (10:55)
[2017-10-09] MEDS: Venelex 60gm Tube TP SCH (10:55)
--- NOTE | 2017-10-09 11:10 | General Progress Note ---
Subjective - Review of Systems Events since last encounter: receiving wound care in no distress no fever Objective - Results Result Diagrams: 10/06/17 12:10 10/06/17 12:10 Recent Labs: Laboratory Last Values WBC 13.2 Th/cmm (4.8-10.8) H 10/06/17 12:10 RBC 5.97 Mil/cmm (4.30-5.70) H 10/06/17 12:10 Hgb 17.3 gm/dL (12-16) 10/06/17 12:10 Hct 52.0 % (41.0-60) 10/06/17 12:10 MCV 87.0 fl (80-99) 10/06/17 12:10 MCH 29.0 pg (26.0-30.0) 10/06/17 12:10 MCHC Differential 33.3 pg (28.0-36.0) 10/06/17 12:10 RDW 14.4 % (11.5-20.0) 10/06/17 12:10 Plt Count 264 Th/cmm (150-400) 10/06/17 12:10 MPV 8.5 fl 10/06/17 12:10 Band Neutrophils % 2 % (0-10) 10/06/17 12:10 Neutrophils (Manual) 75 % (40-80) 10/06/17 12:10 Lymphocytes 12 % (20-50) L 10/06/17 12:10 Monocytes 7 % (2-10) 10/06/17 12:10 Eosinophils 4 % (0-5) 10/06/17 12:10 PT 11.2 SECONDS (9.5-11.5) 10/06/17 12:10 INR 1.08 (0.5-1.4) 10/06/17 12:10 PTT (Actin FS) 33.4 SECONDS (26.0-38.0) 10/06/17 12:10 Sodium 134 mEq/L (136-145) L 10/06/17 12:10 Potassium 4.0 mEq/L (3.5-5.1) 10/06/17 12:10 Chloride 102 mEq/L (98-107) 10/06/17 12:10 Carbon Dioxide 26.8 mEq/L (21.0-31.0) 10/06/17 12:10 Anion Gap 9.2 (7.0-16.0) 10/06/17 12:10 BUN 11 mg/dL (7-25) 10/06/17 12:10 Creatinine 0.6 mg/dL (0.7-1.3) L 10/06/17 12:10 Est GFR ( Amer) > 60.0 ml/min (>90) 10/06/17 12:10 Est GFR (Non-Af Amer) > 60.0 ml/min 10/06/17 12:10 BUN/Creatinine Ratio 18.3 10/06/17 12:10 Glucose 139 mg/dL (70-105) H 10/06/17 12:10 POC Glucose 129 MG/DL (70 - 105) H 10/09/17 07:00 Whole Bld Lactic Acid 1.53 mmol/L (0.60-1.99) 10/06/17 12:10 Calcium 9.7 mg/dL (8.6-10.3) 10/06/17 12:10 Total Bilirubin 0.4 mg/dL (0.3-1.0) 10/06/17 12:10 AST 21 U/L (13-39) 10/06/17 12:10 ALT 16 U/L (7-52) 10/06/17 12:10 Alkaline Phosphatase 82 U/L (34-104) 10/06/17 12:10 Creatine Kinase 207 U/L (30-223) 10/06/17 12:10 Total Protein 7.5 gm/dL (6.0-8.3) 10/06/17 12:10 Albumin 3.9 gm/dL (4.2-5.5) L 10/06/17 12:10 Globulin 3.6 gm/dL 10/06/17 12:10 Albumin/Globulin Ratio 1.1 (1.0-1.8) 10/06/17 12:10 Urine Source MIDSTREAM 10/06/17 12:23 Urine Color YELLOW 10/06/17 12:23 Urine Clarity CLEAR (CLEAR) 10/06/17 12:23 Urine pH 7.0 (4.6 - 8.0) 10/06/17 12:23 Ur Specific [place] 1.010 (1.005-1.030) 10/06/17 12:23 Urine Protein 100 mg/dL (NEGATIVE) H 10/06/17 12:23 Urine Glucose (UA) NEGATIVE mg/dL (NEGATIVE) 10/06/17 12:23 Urine Ketones NEGATIVE mg/dL (NEGATIVE) 10/06/17 12:23 Urine Blood NEGATIVE (NEGATIVE) 10/06/17 12:23 Urine Nitrate NEGATIVE (NEGATIVE) 10/06/17 12:23 Urine Bilirubin NEGATIVE (NEGATIVE) 10/06/17 12:23 Urine Urobilinogen 0.2 E.U./dL (0.2 - 1.0) 10/06/17 12:23 Ur Leukocyte Esterase NEGATIVE (NEGATIVE) 10/06/17 12:23 Urine RBC 0-2 /hpf (0-5) H 10/06/17 12:23 Urine WBC 0-2 /hpf (0-5) 10/06/17 12:23 Ur Epithelial Cells FEW /lpf (FEW) 10/06/17 12:23 Urine Bacteria OCCASIONAL /hpf (NONE SEEN) 10/06/17 12:23 Vancomycin Trough 14.1 ug/mL (10-20) 10/08/17 11:00 - Physical Exam Vitals and I&O: Vital Signs Temp 96.7 F 10/09/17 08:00 Pulse 85 10/09/17 08:56 Resp 18 10/09/17 08:00 BP 137/97 10/09/17 08:56 Pulse Ox 98 10/09/17 08:00 Intake & Output 10/08/17 10/09/17 10/09/17 18:59 06:59 18:59 Intake Total 1250 Output Total 1500 Balance -250 Weight (lbs) 73.936 kg Intake: Intake, IV Amount 500 Vancomycin HCl 1.5 gm In 500 Sodium Chloride 0.9% 500 ml @ 250 mls/hr IV Q12H [facility] Rx#:[id number] Oral 750 Output: Urine 1500 Other: # Bowel Movements 0 Stool Characteristics Liquid Liquid Active Medications: Current Medications Acetaminophen (Tylenol) 650 mg PO Q4HR PRN PRN Reason: FEVER TEMP >101, AND MILD PAIN Stop: 12/05/17 19:41 Amitriptyline HCl (Elavil) 50 mg PO HS [facility] Stop: 12/06/17 20:59 Last Admin: 10/08/17 20:23 Dose: 50 mg Ascorbic Acid (Vitamin C) 500 mg PO DAILY [facility] Stop: 12/06/17 08:59 Last Admin: 10/09/17 08:57 Dose: 500 mg Aspirin (Aspirin Chewable) 81 mg PO DAILY [facility] Stop: 12/06/17 08:59 Last Admin: 10/09/17 08:57 Dose: 81 mg Baclofen (Lioresal) 10 mg PO Q8HR [facility] Stop: 12/05/17 20:59 Last Admin: 10/09/17 04:40 Dose: 10 mg Cholecalciferol (Vitamin D3) 1,000 iu PO DAILY [facility] Stop: 12/06/17 10:59 Last Admin: 10/09/17 08:56 Dose: 1,000 iu Docusate Sodium (Colace) 100 mg PO Q6H [facility] Stop: 12/05/17 19:44 Last Admin: 10/09/17 07:10 Dose: Not Given Hydromorphone HCl (Dilaudid) 2 mg IVP Q3HR PRN PRN Reason: Severe Pain Stop: 12/05/17 17:20 Last Admin: 10/09/17 08:56 Dose: 2 mg Hydromorphone HCl (Dilaudid) 3 mg IM Q6H PRN PRN Reason: PAIN (SEVERE PAIN) Stop: 12/05/17 19:41 Vancomycin HCl 1.5 gm/ Sodium (Chloride) 500 mls @ 250 mls/hr IV Q12H [facility] Stop: 12/07/17 20:59 Last Admin: 10/09/17 10:55 Dose: 250 mls/hr Insulin Aspart (Novolog) 0 units SUBQ ACHS [facility] PRN Reason: Protocol Stop: 12/05/17 20:59 Last Admin: 10/09/17 07:02 Dose: Not Given Lisinopril (Zestril) 10 mg PO DAILY [facility] Stop: 12/06/17 08:59 Last Admin: 10/09/17 08:56 Dose: 10 mg Loratadine (Claritin) 10 mg PO DAILY [facility] Stop: 12/06/17 08:59 Last Admin: 10/09/17 08:56 Dose: 10 mg Lorazepam (Ativan) 0.25 mg PO Q24H PRN; Protocol PRN Reason: Anxiety Stop: 12/05/17 19:41 Magnesium Hydroxide (Milk Of Magnesia) 30 ml PO Q24H PRN PRN Reason: Constipation Stop: 12/05/17 19:41 Miscellaneous (Vancomycin Iv Per Pharmacy) 1 ea [facility] PRN PRN PRN Reason: PROTOCOL Stop: 12/05/17 17:25 Miscellaneous (Duloxetine Hcl [Cymbalta]) 20 mg PO DAILY [facility] Stop: 12/06/17 08:59 Ondansetron HCl (Zofran) 4 mg IV Q6H PRN PRN Reason: Nausea / Vomiting Stop: 12/05/17 17:20 Pregabalin (Lyrica) 150 mg PO BID [facility] Stop: 12/06/17 08:59 Last Admin: 10/09/17 08:56 Dose: 150 mg Zinc Sulfate (Zinc Sulfate) 220 mg PO DAILY [facility] Stop: 12/06/17 10:59 Last Admin: 10/09/17 08:56 Dose: 220 mg General: No acute distress HEENT: Atraumatic Cardiovascular: Regular rate, Normal S1, Normal S2 Lungs: Clear to auscultation Abdomen: Bowel sounds Assessment/Plan - Problem List Patient Problems: All Active Problems FESTERING COCCYX PRESSURE ULCER (Acute) - Assessment Assessment: Current Active Problems Problem Status Onset FESTERING COCCYX PRESSURE ULCER Acute - Plan Plan: cpm
--- NOTE | 2017-10-09 12:50 | General Progress Note ---
Subjective - Review of Systems Service Date: 10/09/17 Events since last encounter: continues to refuse surgery Objective - Results Result Diagrams: 10/06/17 12:10 10/06/17 12:10 Recent Labs: Laboratory Last Values WBC 13.2 Th/cmm (4.8-10.8) H 10/06/17 12:10 RBC 5.97 Mil/cmm (4.30-5.70) H 10/06/17 12:10 Hgb 17.3 gm/dL (12-16) 10/06/17 12:10 Hct 52.0 % (41.0-60) 10/06/17 12:10 MCV 87.0 fl (80-99) 10/06/17 12:10 MCH 29.0 pg (26.0-30.0) 10/06/17 12:10 MCHC Differential 33.3 pg (28.0-36.0) 10/06/17 12:10 RDW 14.4 % (11.5-20.0) 10/06/17 12:10 Plt Count 264 Th/cmm (150-400) 10/06/17 12:10 MPV 8.5 fl 10/06/17 12:10 Band Neutrophils % 2 % (0-10) 10/06/17 12:10 Neutrophils (Manual) 75 % (40-80) 10/06/17 12:10 Lymphocytes 12 % (20-50) L 10/06/17 12:10 Monocytes 7 % (2-10) 10/06/17 12:10 Eosinophils 4 % (0-5) 10/06/17 12:10 PT 11.2 SECONDS (9.5-11.5) 10/06/17 12:10 INR 1.08 (0.5-1.4) 10/06/17 12:10 PTT (Actin FS) 33.4 SECONDS (26.0-38.0) 10/06/17 12:10 Sodium 134 mEq/L (136-145) L 10/06/17 12:10 Potassium 4.0 mEq/L (3.5-5.1) 10/06/17 12:10 Chloride 102 mEq/L (98-107) 10/06/17 12:10 Carbon Dioxide 26.8 mEq/L (21.0-31.0) 10/06/17 12:10 Anion Gap 9.2 (7.0-16.0) 10/06/17 12:10 BUN 11 mg/dL (7-25) 10/06/17 12:10 Creatinine 0.6 mg/dL (0.7-1.3) L 10/06/17 12:10 Est GFR ( Amer) > 60.0 ml/min (>90) 10/06/17 12:10 Est GFR (Non-Af Amer) > 60.0 ml/min 10/06/17 12:10 BUN/Creatinine Ratio 18.3 10/06/17 12:10 Glucose 139 mg/dL (70-105) H 10/06/17 12:10 POC Glucose 168 MG/DL (70 - 105) H 10/09/17 12:09 Whole Bld Lactic Acid 1.53 mmol/L (0.60-1.99) 10/06/17 12:10 Calcium 9.7 mg/dL (8.6-10.3) 10/06/17 12:10 Total Bilirubin 0.4 mg/dL (0.3-1.0) 10/06/17 12:10 AST 21 U/L (13-39) 10/06/17 12:10 ALT 16 U/L (7-52) 10/06/17 12:10 Alkaline Phosphatase 82 U/L (34-104) 10/06/17 12:10 Creatine Kinase 207 U/L (30-223) 10/06/17 12:10 Total Protein 7.5 gm/dL (6.0-8.3) 10/06/17 12:10 Albumin 3.9 gm/dL (4.2-5.5) L 10/06/17 12:10 Globulin 3.6 gm/dL 10/06/17 12:10 Albumin/Globulin Ratio 1.1 (1.0-1.8) 10/06/17 12:10 Urine Source MIDSTREAM 10/06/17 12:23 Urine Color YELLOW 10/06/17 12:23 Urine Clarity CLEAR (CLEAR) 10/06/17 12:23 Urine pH 7.0 (4.6 - 8.0) 10/06/17 12:23 Ur Specific [place] 1.010 (1.005-1.030) 10/06/17 12:23 Urine Protein 100 mg/dL (NEGATIVE) H 10/06/17 12:23 Urine Glucose (UA) NEGATIVE mg/dL (NEGATIVE) 10/06/17 12:23 Urine Ketones NEGATIVE mg/dL (NEGATIVE) 10/06/17 12:23 Urine Blood NEGATIVE (NEGATIVE) 10/06/17 12:23 Urine Nitrate NEGATIVE (NEGATIVE) 10/06/17 12:23 Urine Bilirubin NEGATIVE (NEGATIVE) 10/06/17 12:23 Urine Urobilinogen 0.2 E.U./dL (0.2 - 1.0) 10/06/17 12:23 Ur Leukocyte Esterase NEGATIVE (NEGATIVE) 10/06/17 12:23 Urine RBC 0-2 /hpf (0-5) H 10/06/17 12:23 Urine WBC 0-2 /hpf (0-5) 10/06/17 12:23 Ur Epithelial Cells FEW /lpf (FEW) 10/06/17 12:23 Urine Bacteria OCCASIONAL /hpf (NONE SEEN) 10/06/17 12:23 Vancomycin Trough 14.1 ug/mL (10-20) 10/08/17 11:00 - Physical Exam Vitals and I&O: Vital Signs Temp 97.5 F 10/09/17 12:02 Pulse 80 10/09/17 12:02 Resp 18 10/09/17 12:02 BP 130/81 10/09/17 12:02 Pulse Ox 95 10/09/17 12:02 Intake & Output 10/08/17 10/09/17 10/09/17 18:59 06:59 18:59 Intake Total 1250 Output Total 1500 Balance -250 Weight (lbs) 73.936 kg Intake: Intake, IV Amount 500 Vancomycin HCl 1.5 gm In 500 Sodium Chloride 0.9% 500 ml @ 250 mls/hr IV Q12H AMPARO Rx#:[id number] Oral 750 Output: Urine 1500 Other: # Bowel Movements 0 Stool Characteristics Liquid Liquid Active Medications: Current Medications Acetaminophen (Tylenol) 650 mg PO Q4HR PRN PRN Reason: FEVER TEMP >101, AND MILD PAIN Stop: 12/05/17 19:41 Amitriptyline HCl (Elavil) 50 mg PO HS AMPARO Stop: 12/06/17 20:59 Last Admin: 10/08/17 20:23 Dose: 50 mg Ascorbic Acid (Vitamin C) 500 mg PO DAILY AMPARO Stop: 12/06/17 08:59 Last Admin: 10/09/17 08:57 Dose: 500 mg Aspirin (Aspirin Chewable) 81 mg PO DAILY [facility] Stop: 12/06/17 08:59 Last Admin: 10/09/17 08:57 Dose: 81 mg Baclofen (Lioresal) 10 mg PO Q8HR [facility] Stop: 12/05/17 20:59 Last Admin: 10/09/17 12:03 Dose: 10 mg Cholecalciferol (Vitamin D3) 1,000 iu PO DAILY [facility] Stop: 12/06/17 10:59 Last Admin: 10/09/17 08:56 Dose: 1,000 iu Docusate Sodium (Colace) 100 mg PO Q6H [facility] Stop: 12/05/17 19:44 Last Admin: 10/09/17 07:10 Dose: Not Given Hydromorphone HCl (Dilaudid) 2 mg IVP Q3HR PRN PRN Reason: Severe Pain Stop: 12/05/17 17:20 Last Admin: 10/09/17 12:03 Dose: 2 mg Hydromorphone HCl (Dilaudid) 3 mg IM Q6H PRN PRN Reason: PAIN (SEVERE PAIN) Stop: 12/05/17 19:41 Vancomycin HCl 1.5 gm/ Sodium (Chloride) 500 mls @ 250 mls/hr IV Q12H [facility] Stop: 12/07/17 20:59 Last Admin: 10/09/17 10:55 Dose: 250 mls/hr Insulin Aspart (Novolog) 0 units SUBQ ACHS AMPARO PRN Reason: Protocol Stop: 12/05/17 20:59 Last Admin: 10/09/17 07:02 Dose: Not Given Lisinopril (Zestril) 10 mg PO DAILY [facility] Stop: 12/06/17 08:59 Last Admin: 10/09/17 08:56 Dose: 10 mg Loratadine (Claritin) 10 mg PO DAILY [facility] Stop: 12/06/17 08:59 Last Admin: 10/09/17 08:56 Dose: 10 mg Lorazepam (Ativan) 0.25 mg PO Q24H PRN; Protocol PRN Reason: Anxiety Stop: 12/05/17 19:41 Magnesium Hydroxide (Milk Of Magnesia) 30 ml PO Q24H PRN PRN Reason: Constipation Stop: 12/05/17 19:41 Miscellaneous (Vancomycin Iv Per Pharmacy) 1 ea MC PRN PRN PRN Reason: PROTOCOL Stop: 12/05/17 17:25 Miscellaneous (Duloxetine Hcl [Cymbalta]) 20 mg PO DAILY [facility] Stop: 12/06/17 08:59 Ondansetron HCl (Zofran) 4 mg IV Q6H PRN PRN Reason: Nausea / Vomiting Stop: 12/05/17 17:20 Pregabalin (Lyrica) 150 mg PO BID [facility] Stop: 12/06/17 08:59 Last Admin: 10/09/17 08:56 Dose: 150 mg Zinc Sulfate (Zinc Sulfate) 220 mg PO DAILY [facility] Stop: 12/06/17 10:59 Last Admin: 10/09/17 08:56 Dose: 220 mg General: No acute distress HEENT: Atraumatic Cardiovascular: Regular rate, Normal S1, Normal S2 Lungs: Clear to auscultation Abdomen: Bowel sounds Assessment/Plan - Problem List Patient Problems: All Active Problems FESTERING COCCYX PRESSURE ULCER (Acute)
--- NOTE | 2017-10-09 13:24 | Consultation ---
DATE OF CONSULTATION: 10/08/2017 SURGICAL CONSULTATION REFERRING PHYSICIAN: Dr. Kraft. REASON FOR CONSULTATION: Stage IV left hip decubitus ulcer. Thank you for referring this patient to me. This is a 56-year-old male with history of smoking and peripheral vascular disease resulting in above knee amputation bilaterally. He comes in because of back pain. The patient is in evaluation now for the source of his back pain. Consult is for the left hip decubitus ulcer stage IV. The patient is incontinent. RECOMMENDATIONS: For excisional debridement of the ulcer and application of wound VAC. The patient, however, is very uncooperative and does not want any sort of surgical intervention at this time. We will await for patient to change his mind. [facility]# [id number]
--- NOTE | 2017-10-11 19:11 | Discharge Summary ---
DATE OF DISCHARGE: 10/09/2017 HOSPITAL COURSE: The patient is very well known to me. The patient is known to have history of sacral decubiti, bilateral above-knee amputation, also history of depression, and history of diabetes. The patient was treated for his wound infection with IV antibiotics. Diabetes was controlled. The patient had debridement ____. The patient had Dr. Rajan Stoll as well as ____ see the patient. The patient refused any more treatment. The patient was discharged back to ____ [facility] where I will follow the patient. Condition at the time of discharge is stable. JOB# [id number]
--- NOTE | 2017-10-11 21:55 | Discharge Summary ---
DATE OF DISCHARGE: 10/09/2017 HOSPITAL COURSE OF TREATMENT: This is a 56-year-old male who was admitted from [facility] facility through the Emergency Room due to severe back pain, especially on the sacral area; hence otherwise a series of tests were done in the Emergency Room, which the patient was admitted to the medical unit with the diagnosis of decubitus ulcer and cellulitis and from med/surg unit, the patient received series of IV antibiotics and surgical consult was done to which excisional debridement with application of wound VAC is recommended, but unfortunately the patient is refusing any treatment and the patient is declining to do any surgery. Once stabilized, the patient was discharged back to rehab center. Dr. Kraft to follow the patient to [facility] facility. Medication reconciliation done accordingly. JOB# [id number]
== END 2017-10-09 16:15 | disposition home or self-care (01) | DRG 592 ==
LOC: ER 11:45 → MSI 13:39
PROVIDERS: ADMIT Internal Medicine; ATTEND Internal Medicine
DX: L89.214 Pressure ulcer of right hip, stage 4 (principal); L89.159 Pressure ulcer of sacral region, unspecified stage; R65.10 Systemic inflammatory response syndrome (SIRS) of non-infectious origin without acute organ dysfunction; E87.1 Hypo-osmolality and hyponatremia; Z89.611 Acquired absence of right leg above knee; F20.9 Schizophrenia, unspecified; L03.312 Cellulitis of back [any part except buttock and flank]; Z89.612 Acquired absence of left leg above knee; L89.314 Pressure ulcer of right buttock, stage 4; L89.224 Pressure ulcer of left hip, stage 4; E11.9 Type 2 diabetes mellitus without complications; E66.9 Obesity, unspecified; I10 Essential (primary) hypertension; M19.90 Unspecified osteoarthritis, unspecified site; J44.9 Chronic obstructive pulmonary disease, unspecified; F17.210 Nicotine dependence, cigarettes, uncomplicated; S61.202A Unspecified open wound of right middle finger without damage to nail, initial encounter; X08.8XXA Exposure to other specified smoke, fire and flames, initial encounter; Y93.89 Activity, other specified; Y92.89 Other specified places as the place of occurrence of the external cause; Y99.8 Other external cause status; Z83.3 Family history of diabetes mellitus; Z82.49 Family history of ischemic heart disease and other diseases of the circulatory system; Z68.25 Body mass index [BMI] 25.0-25.9, adult; Z79.82 Long term (current) use of aspirin; Z79.4 Long term (current) use of insulin
CPT/HCPCS: 36415-UA; 71010-TC; 80053-TC; 80202-TC; 81001-TC; 82550-TC; 82948-90; 83605; 85007-TC; 85027-TC; 85610-TC; 85730-TC; 93005; J1170; J3370; J7040; Z7610

== ENCOUNTER 2018-05-20 19:40 | Inpatient (IN) | payer MEDICARE, MEDICAID ==
[2018-05-20] MEDS ORDERED: Sodium Chloride 0.9% 1,000 ML IV ONE (19:51)
[2018-05-20 20:12] LABS: EOSINOPHILE ABSOLUTE 0.3 Th/cmm (0.1-0.4); RED CELL DISTRIBUTION WIDTH 13.9 % (11.5-20.0)
[2018-05-20 20:19] LABS: % BASOPHILS 0.5 % (0.0-2.0); % LYMPHOCYTES 18.4 % (20.0-50.0); % NEUTROPHILS 71.1 % (40.0-80.0); BASOPHILE ABSOLUTE 0.1 Th/cumm (0-0.2); HEMATOCRIT 52.1 % (41.0-60); HEMOGLOBIN 17.3 gm/dL (12-16); LYMPHOCYTE ABSOLUTE 2.3 Th/cmm (1.5-3.0); MEAN CELL VOLUME 87.3 fl (80-99); MEAN CORPUSCULAR HGB CONC 33.2 pg (28.0-36.0); MEAN PLATELET VOLUME 8.1 fl; PLATELET COUNT 274 Th/cmm (150-400); RED BLOOD COUNT 5.97 Mil/cmm (4.30-5.70)
[2018-05-20 20:22] LABS: WHITE BLOOD COUNT 12.2 Th/cmm (4.8-10.8)
--- NOTE | 2018-05-20 20:33 | ED Physician Chart ---
ED Chief Complaint/HPI - Patient Information Date Seen:: 05/20/18 Time Seen:: 19:40 Chief Complaint:: Abdominal Pain History of Present Illness:: onset x 2 days of intermittent, crampy, diffuse, generalized abdominal pain, N/V /D x 8; no report of trauma, H/As, S/T, neck pain, C/P, SOB, A/C, cough, fever, chills, or urinary s/s Allergies:: Allergies Allergy/AdvReac Type Severity Reaction Status Date / Time permethrin [From Elimite] Allergy Verified 05/20/18 20:22 mushroom AdvReac Verified 05/20/18 20:22 strawberry AdvReac Verified 05/20/18 20:22 Vitals:: Vital Signs - 8 hr 05/20/18 19:40 Temp 97.4 F HR 104 RR 18 BP 117/78 O2 Sat % 94 Historian:: Patient, EMS Review:: Nurse's Note Reviewed, Old Chart Reviewed, EMS run form Reviewed ED Review of Systems - Review of Systems General/Constitutional: No fever, No chills, No weight loss, No weakness, No diaphoresis, No edema, No loss of appetite Skin: No skin lesions, No rash, No bruising Head: No headache, No light-headedness Eyes: No loss of vision, No pain, No diplopia ENT: No earache, No nasal drainage, No sore throat, No tinnitus Neck: No neck pain, No swelling, No thyromegaly, No stiffness, No mass noted Cardio Vascular: No chest pain, No palpitations, No PND, No orthopnea, No edema Pulmonary: No SOB, No cough, No sputum, No wheezing GI: No nausea, No vomiting, No diarrhea, No pain, No melena, No hematochezia, No constipation, No hematemesis G/U: No dysuria, No frequency, No hematuria, No nacturia Musculoskeletal: No bone or joint pain, No back pain, No muscle pain Endocrine: No polyuria, No polydipsia Psychiatric: Prior psych history, No depression, No anxiety, No suicidal ideation, No homicidal ideation, Auditory hallucination, No visual hallucination Hematopoietic: No bruising, No lymphadenopathy Allergic/Immuno: No urticaria, No angioedema Neurological: No syncope, No focal symptoms, No weakness, No paresthesia, No headache, No seizure, No dizziness, No confusion, No vertigo ED Past Medical History - Past Medical History Obtainable: Yes Past Medical History: HTN, DM, Asthma/COPD, Dyslipidemia Family History: Diabetes Melitus, HTN Social History: Smoker, No Alcohol, No Drug Use, Single, Care Facility Surgical History: other (Bilateral BKAs) Psychiatricy History: Schizophrenia Medication: Reviewed Family Medical History - Family Member Mother History Unknown: Yes Living Status: Hx Family COPD: Yes ED Physical Exam - Physical Examination General/Constitutional: Awake, Well-developed, well-nourished, Alert, No distress, GCS 15, Non-toxic appearing, Ambulatory Head: Atraumatic Eyes: Lids, conjuctiva normal, PERRL, EOMI Skin: Nl inspection, No rash, No skin lesions, No ecchymosis, Well hydrated, No lymphadenopathy ENMT: External ears, nose nl, TM canals nl, Nasal exam nl, Lips, teeth, gums nl , Oropharynx nl, Tonsils nl Neck: Nontender, Full ROM w/o pain, No JVD, No nuchal rigidity, No bruit, No mass, No stridor Respiratory: Nl effort/Exclusion, Clear to Auscultation, No Wheeze/Rhonchi/Rales Cardio Vascular: RRR, No murmur, gallop, rubs, NL S1 S2 GI: No tenderness/rebounding/guarding, No organomegaly, No hernia, Normal BS's, Nondistended, No mass/bruits, No McBurney tenderness, Rectum exam nl Other GI comments:: + Colostomy Bag; no pulsatile masses : No CVA tenderness Extremities: No tenderness or effusion, Full ROM, normal strength in all extremities, No edema, Normal digits & nails Neuro/Psych: Alert/oriented, DTR's symmetric, Normal sensory exam, Normal motor strength, Judgement/insight normal, Mood normal, Normal gait, No focal deficits Misc: Normal back, No paraspinal tenderness ED Labs/Radiology/EKG Results - Lab Results Results: Laboratory Tests 05/20/18 20:04 WBC 12.2 H RBC 5.97 H Hgb 17.3 Hct 52.1 MCV 87.3 MCH 29.0 MCHC Differential 33.2 RDW 13.9 Plt Count 274 MPV 8.1 Neutrophils % 71.1 Lymphocytes % 18.4 L Monocytes % 8.0 Eosinophils % 2.0 Basophils % 0.5 Comments:: WBC: 12.2 - Radiology Results Comments:: NAD - EKG Interpretations EKG Time:: 20:12 Rate & Rhythm: 94; NSR Comments:: non-specific st-t changes ED Septic Shock - . Is Septic Shock (SBP<90, OR Lactate>4 mmol\L) present?: No - <6hrs of presentation: Vital Signs: Vital Signs - 8 hr 05/20/18 19:40 Temp 97.4 F HR 104 RR 18 BP 117/78 O2 Sat % 94 ED Reassessment (Disposition) - Reassessment Reassessment Condition:: Improved - Diagnosis Diagnosis:: Leukocytosis; Abdominal Pain; N/V/D; AGE; Sepsis - Aftercare/Follow up Instructions Aftercare/Follow-Up Instructions:: Counseled pt regarding lab results/diagnosis & need follow up, Counseled pt & family regarding lab results/diagnosis & need follow up - Patient Disposition Discharge/Transfer:: Acute Care w/in this hosp Accepting Physician:: Dr. Kraft Time Called:: 2029 Responded:: 20:30 Admitted to:: Telemetry Spoke to:: Dr. Kraft Admitting Medical Physician:: Dr. Kraft Condition at Disposition:: Stable, Improved
[2018-05-20 20:35] LABS: INR 0.9 (0.5-1.4); PROTHROMBIN TIME (TEST) 9.3 SECONDS (9.5-11.5)
[2018-05-20 20:37] LABS: ALB/GLOB RATIO 1.4 (1.0-1.8); ALBUMIN 4.2 gm/dL (4.2-5.5); ALKALINE PHOSPHATASE 87 U/L (34-104); AMYLASE SERUM 30 U/L (29-103); ANION GAP 11.9 (7.0-16.0); BILIRUBIN,TOTAL 0.3 mg/dL (0.3-1.0); BUN - UREA NITROGEN 14 mg/dL (7-25); CALCIUM SERUM 9.7 mg/dL (8.6-10.3); CHLORIDE 104 mEq/L (98-107); CHOLESTEROL 158 mg/dL (<200); CREATININE - SERUM 0.9 mg/dL (0.7-1.3); CREATININE KINASE 127 U/L (30-223); GFR AFRICAN-AMERICAN > 60.0 ml/min (>90); GFR NON AFRICAN-AMERICAN > 60.0 ml/min; GLUCOSE 182 mg/dL (70-105); HDL -HIGH DENSITY LIPOPROTEIN 39 mg/dL (23-92); LIPASE 14 U/L (11-82); POTASSIUM SERUM 3.9 mEq/L (3.5-5.1); SGOT 15 U/L (13-39); SGPT/ALT 12 U/L (7-52); SODIUM SERUM 138 mEq/L (136-145); TOTAL PROTEIN,SERUM 7.2 gm/dL (6.0-8.3); TRIGLYCERIDES 144 mg/dL (<150)
[2018-05-20] MEDS ORDERED: Levofloxacin 500mg/100mL 500 MG/100 ML BAG IV ONE ×2 (20:37→20:57)
[2018-05-20] MEDS ORDERED: Acetaminophen 500 MG TAB PO PRN (21:23)
[2018-05-20] MEDS ORDERED: HYDROmorphone 2 mg/mL 1mL Vial IM PRN (21:23)
[2018-05-20] MEDS ORDERED: Magnesium Hydroxide (MOM) 30 mL UDC PO PRN (21:23)
[2018-05-20] MEDS ORDERED: HYDROmorphone 1 mg/mL 1mL Syr IVP PRN (22:19)
[2018-05-20 22:36] LABS: A1C % 7.2 % (4.0-6.0)
[2018-05-20 22:39] VITALS: BP 99/51
[2018-05-20] MEDS: HYDROmorphone 1 mg/mL 1mL Syr IVP PRN (23:29)
[2018-05-20] MEDS: Sodium Chloride 0.45% 1,000 ML IV SCH (23:45)
[2018-05-20] MEDS: cefTRIAXone 1 GM in Sodium Chloride 0.9% 50 ML IV SCH (23:46)
--- NOTE | 2018-05-21 02:51 | Consultation ---
DATE OF CONSULTATION: 05/20/2018 INFECTIOUS DISEASE CONSULTATION REFERRING PHYSICIAN: Dr. Kraft. REASON FOR CONSULTATION: Abdominal pain. HISTORY OF PRESENT ILLNESS: The patient is a 57-year-old with a past medical history of colostomy of unknown reason, diabetes mellitus type 2, COPD, blindness of the eyes, anxiety disorder, paranoid schizophrenia, right hip ulcer stage 4, depression, bilateral BKA, brought to the ER for abdominal pain and distention. On initial evaluation, the patient was afebrile and WBC count was 12,200. Rocephin IV was started and ID consult was called for further antibiotic management. PAST MEDICAL HISTORY: Includes colostomy, COPD, diabetes mellitus type 2, legal blindness, paranoid schizophrenia, pressure ulcer on the right hip and left hips stage 4, major depression, bilateral BKAs. ALLERGIES: THE PATIENT IS ALLERGIC TO PERMETHRIN ____ AND STRAWBERRY. MEDICATIONS: As per medication reconciliation sheet. Antibiotic-alexis, the patient is on Rocephin. REVIEW OF SYSTEMS: Poor historian, otherwise the patient has: GENERAL: No fever, no chills. HEENT: No diplopia, no photophobia, no sore throat. RESPIRATORY: No cough, no short of breath. CARDIOVASCULAR: No chest pain or palpitation. GASTROINTESTINAL: No nausea, no vomiting, no diarrhea or constipation. GENITOURINARY: No dysuria. CENTRAL NERVOUS SYSTEM: The patient is blind. PHYSICAL EXAMINATION: VITAL SIGNS: Current vital signs show temperature is 98.1 degrees Fahrenheit, pulse 103, respirations 17, blood pressure 124/77. GENERAL: The patient is comfortable, lying in the bed, not in any acute distress. HEENT: Head is normocephalic, atraumatic. Oral cavity moist. NECK: Supple. No JVD, no bruits. Trachea in midline. CHEST: Bilateral breath sounds. No crackles or wheezing. HEART: S1, S2 within normal limits. Regular rhythm. No murmur, no gallop. ABDOMEN: Soft, distended. The patient has colostomy in the left lower quadrant. Bowel sounds present. EXTREMITIES: No cyanosis, no clubbing, no edema. Bilateral BKA. CENTRAL NERVOUS SYSTEM: Alert and awake, follows command. The patient is legally blind. LABORATORY DATA: WBC count 12,200, hemoglobin 17.3, hematocrit 42.1, platelets are 274,000, neutrophils 72%. Sodium is 138, potassium 3.9, chloride 104, bicarbonate is 26, BUN is 20, creatinine 0.9, glucose 182. IMPRESSION: 1. Leukocytosis. 2. Abdominal pain. 3. Diabetes mellitus type 2. 4. Hypertension. 5. Hyperlipidemia. RECOMMENDATIONS: Continue Rocephin at this time. Follow up CLIF. JOB# [id number]
[2018-05-21] MEDS: HYDROmorphone 1 mg/mL 1mL Syr IVP PRN ×5 (03:41→20:57)
[2018-05-21] MEDS: INSULIN ASPART SLIDING SCALE 100 UNITS/ML UNIT SUBQ SCH ×4 (07:06→20:56)
[2018-05-21 07:23] LABS: URINE MICROSCOPIC INDICATED? YES; URINE SOURCE CLEAN C
[2018-05-21] MEDS ORDERED: INSULIN ASPART RECOMBINANT 1 UNIT SUBQ SCH (07:30)
[2018-05-21 08:02] LABS: URINE BILIRUBIN NEGATIVE (NEGATIVE); URINE BLOOD MODERATE (NEGATIVE); URINE GLUCOSE (UA) NEGATIVE (NEGATIVE); URINE KETONE NEGATIVE (NEGATIVE); URINE LEUKOCYTE ESTERASE LARGE (NEGATIVE); URINE NITRATE NEGATIVE (NEGATIVE); URINE PROTEIN 100 mg/dL (NEGATIVE); URINE UROBILINOGEN 0.2 E.U./dL (0.2 - 1.0)
--- NOTE | 2018-05-21 08:07 | Diagnostic Imaging Report ---
KUB single view HISTORY: Abdominal pain. COMPARISON: None FINDINGS: There is significant stool seen in the region of right colon. Generalized gas-filled loops of bowel also noted. No gross free air. The osseous structures demonstrate degenerative changes. Atherosclerosis noted. Postsurgical changes and right groin are noted. IMPRESSION: Significant stool in the region of the right colon with generalized gas-filled loops of bowel. Please correlate with possible constipation and ileus.
[2018-05-21 08:13] LABS: URINE CLARITY CLOUDY (CLEAR); URINE COLOR YELLOW
--- NOTE | 2018-05-21 08:21 | Diagnostic Imaging Report ---
CHEST X-RAY: AP view INDICATION: pain COMPARISON: 10/06/2017 FINDINGS: Mild chronic lung changes are noted. There is no focal consolidation or pleural effusions atherosclerosis aortic arch is noted. Heart size normal. Degenerative changes of the spine are noted. IMPRESSION: Mild chronic lung changes. No focal consolidation identified. Atherosclerotic vascular disease.
[2018-05-21 08:27] LABS: URINE BACTERIA 4+ /hpf (NONE SEEN); URINE EPITHELIAL CELLS MODERATE /lpf (FEW); URINE SPERM MODERATE /hpf (NONE SEEN); URINE WBC >100 /hpf (0-5)
[2018-05-21] MEDS: Aspirin 81mg Chewable Tab PO SCH (08:31)
[2018-05-21] MEDS: Multivitamin w/ Minerals Tab PO SCH (08:38)
[2018-05-21] MEDS ORDERED: Non-Formulary Item 1 EA (Amino Acids/Protein Hydrolys [Pro-Stat Awc Liquid] 30 ML) PO SCH (09:00)
[2018-05-21] MEDS ORDERED: Non-Formulary Item 1 EA (Duloxetine Hcl [Cymbalta] 20 MG) PO SCH (09:00)
[2018-05-21] MEDS: Sodium Chloride 0.45% 1,000 ML IV SCH (12:22)
[2018-05-21] MEDS ORDERED: Magnesium Citrate 1.75 GM/300 mL Bottle PO ONE (17:23)
--- NOTE | 2018-05-21 23:44 | History and Physical ---
History of Present Illness - HPI Chief Complaint: abdominal pain HPI: 57 year old male admitted to telemetry unit due to abdominal pain with distention. No fevers reported. Vital Signs: Last Vital Signs Temp 98.2 F 05/21/18 15:34 Pulse 87 05/21/18 15:34 Resp 16 05/21/18 16:00 BP 130/67 05/21/18 15:34 Pulse Ox 95 05/21/18 15:34 Past Medical History Other History: colostomy copd dm legal blindness paranoid schizophrenia right/left hip pressure ulcer major depression b bka Family Medical History - Family Member Mother History Unknown: Yes Living Status: Hx Family COPD: Yes Social History Smoke: No Alcohol: None Drugs: None Lives: [facility] - Medications Home Medications: Home Medication Medication Instructions Recorded Type Acetaminophen [Tylenol] 650 mg PO Q4HR PRN 10/06/17 History Amino Acids/Protein Hydrolys 30 ml PO TID 10/06/17 History [Pro-Stat Sugar Free Awc 887 ml] Amitriptyline HCl [Amitriptyline 50 mg PO HS 10/06/17 History HCl*] Ascorbic Acid [Vitamin C] 500 mg PO DAILY 10/06/17 History Aspirin [Aspirin Chewable] 81 mg PO DAILY 10/06/17 History Baclofen [Baclofen*] 10 mg PO Q8H 10/06/17 History Cholecalciferol (Vitamin D3) 1 cap PO DAILY 10/06/17 History [Vitamin D3] Docusate Sodium [Colace] 100 mg PO DAILY 10/06/17 History Duloxetine HCl [Cymbalta] 20 mg PO DAILY 10/06/17 History HYDROmorphone [Dilaudid] 3 mg IM Q6H PRN 10/06/17 History Insulin Aspart, Recombinant See Protocol SUBQ ACHS 10/06/17 History [NovoLOG FLEXPEN] Lisinopril [Zestril] 10 mg PO DAILY 10/06/17 History Magnesium Hydroxide [Milk of 30 ml PO Q24H PRN 10/06/17 History Magnesia] Multivit-Min/Iron Fum/Folic AC 1 tab PO DAILY 10/06/17 History [Nature's Blend Multi Vitamin and Minerals] Pregabalin [Lyrica] 150 mg PO BID 10/06/17 History Acetaminophen [Tylenol Extra 1,000 mg PO Q4HR PRN 05/20/18 History Strength] - Allergies Allergies/Adverse Reactions: Allergies Allergy/AdvReac Type Severity Reaction Status Date / Time permethrin [From Elimite] Allergy Verified 05/20/18 20:22 mushroom AdvReac Verified 05/20/18 20:22 strawberry AdvReac Verified 05/20/18 20:22 Review of Systems - Review of Systems Constitutional: Report: Weakness Eyes: Report: Other (blindness) Respiratory: Report: No Significant Cardiovascular: Report: No Significant Neurological: Report: Weakness Physical Exam - Physical Exam HEENT: Report: Ears Nose Throat within normal limits Neck: Report: Within normal limits Cardiovascular Systems: Report: +s1/s2 noted, Regular, Rate and Rhythm Respiratory: Report: Breath Sounds are within normal limits Abdomen: Report: Non-tender to palpation Skin: Report: Color of skin is within normal limits Neuro/Psych: Report: Mood affect is within normal limits - Lab Results All Lab Results last 24 hours: Laboratory Results - last 24 hr 05/21/18 05/21/18 05/21/18 06:10 11:36 16:39 POC Glucose 144 H 101 Urine Source CLEAN C Urine Color YELLOW Urine Clarity CLOUDY Urine pH 6.0 Ur Specific [place] 1.020 Urine Protein 100 H Urine Glucose (UA) NEGATIVE Urine Ketones NEGATIVE Urine Blood MODERATE H Urine Nitrate NEGATIVE Urine Bilirubin NEGATIVE Urine Urobilinogen 0.2 Ur Leukocyte Esterase LARGE H Urine RBC 2-5 H Urine WBC >100 H Ur Epithelial Cells MODERATE Urine Bacteria 4+ H Urine Sperm MODERATE 05/21/18 20:48 POC Glucose 185 H Urine Source Urine Color Urine Clarity Urine pH Ur Specific [place] Urine Protein Urine Glucose (UA) Urine Ketones Urine Blood Urine Nitrate Urine Bilirubin Urine Urobilinogen Ur Leukocyte Esterase Urine RBC Urine WBC Ur Epithelial Cells Urine Bacteria Urine Sperm Microbiology 05/20/18 23:30 - Preliminary Blood NO GROWTH AFTER 24 HOURS - Assessment Assessment: abdominal pain leukocytosis dm htn hyperlipidemia - Plan Plan: iv rocephin continue hoome meds id consult continue the rest of the orders
--- NOTE | 2018-05-22 | Consultation ---
DATE OF CONSULTATION: 05/21/2018 GASTROENTEROLOGY CONSULTATION REQUESTING PHYSICIAN: Jerrell Kraft MD. REASON FOR CONSULTATION: Abdominal pain. HISTORY OF PRESENT ILLNESS: A 57-year-old obese male with diabetes mellitus, COPD, blindness, anxiety, depression, schizoaffective disorder and peripheral vascular disease, status post bilateral [id number] amputations. He has a history of diverting colostomy for sacral decubitus ulcers. We were asked to see him for vague abdominal pain that he has had for the past few days. He also reports some constipation and rectal discharge. He has not had a colonoscopy for the last 7 years. There may be history of colon polyps. There is no overt GI bleeding. KUB showed copious stool in the colon. PAST MEDICAL HISTORY: As above. MEDICATIONS: Here are Tylenol, Elavil, vitamin C, baby aspirin, baclofen, Rocephin, vitamin D3, Colace 100 mg daily, Dilaudid, lisinopril, insulin sliding scale, milk of magnesia p.r.n., duloxetine, Zofran, Lyrica and IV fluids. ALLERGIES: PERMETHRIN, MUSHROOMS AND STRAWBERRIES. SOCIAL HISTORY: No recent tobacco, alcohol or drugs. FAMILY HISTORY: Noncontributory. REVIEW OF SYSTEMS: A comprehensive 12-point review of systems conducted and is only positive for the signs and symptoms present in history of present illness. PHYSICAL EXAMINATION: VITAL SIGNS: Temperature 98.2, blood pressure 130/67, pulse of 87, respirations 12, O2 sat is 95% on room air. GENERAL: The patient is well-developed, obese male in no acute distress. Alert and oriented x 4. HEENT: Sclerae are anicteric. Oropharynx is clear. CARDIOVASCULAR: Regular rate and rhythm. LUNGS: With occasional rhonchi at the base. ABDOMEN: Soft, mild distention, mild tenderness to palpation, intact colostomy in the left lower quadrant with brown liquid stool. EXTREMITIES: Bilateral yaich-xtt-inim amputation. RELEVANT LABS: WBC 12.2, hemoglobin 17.3, platelet count is 274. INR is normal. Creatinine normal. Liver enzymes normal. Albumin 4.2. Lipase normal. Urinalysis shows large leukocyte esterase with greater than 100 wbc's and 4+ bacteria. KUB shows significant stool in the region of the right colon with generalized gas filled loops of bowel. IMPRESSION: 1. Abdominal pain, likely secondary to constipation, less likely large bowel obstruction. 2. History of diverting colostomy for sacral decubitus ulcer. 3. History of diabetes mellitus, obesity, chronic obstructive pulmonary disease, blindness. 4. History of anxiety, depression and schizoaffective disorder. 5. History of peripheral vascular disease, status post bilateral [id number] amputations. RECOMMENDATIONS: 1. Colonoscopy via stoma and a flexible sigmoidoscopy of the rectum in the morning. 2. Bowel preparation overnight. 3. Monitor labs. 4. Pain control measures as needed. 5. Consider CT imaging, if pain persists. Thank you, Dr. Jerrell Kraft for involving us in the care of your patient. If you have any further questions, please call us. JOB# [id number] [id number]
[2018-05-22] MEDS: cefTRIAXone 1 GM in Sodium Chloride 0.9% 50 ML IV SCH ×2 (00:38→23:31)
[2018-05-22] MEDS: HYDROmorphone 1 mg/mL 1mL Syr IVP PRN ×5 (01:05→21:27)
[2018-05-22] MEDS: Sodium Chloride 0.45% 1,000 ML IV SCH ×2 (03:32→16:08)
[2018-05-22] MEDS ORDERED: Magnesium Citrate 1.75 GM/300 mL Bottle PO ONE (06:22)
[2018-05-22] MEDS: INSULIN ASPART SLIDING SCALE 100 UNITS/ML UNIT SUBQ SCH ×4 (06:47→20:20)
[2018-05-22 06:54] LABS: % BASOPHILS 0.5 % (0.0-2.0); % EOSINOPHILS 3.5 % (0.0-5.0); % LYMPHOCYTES 20.5 % (20.0-50.0); % NEUTROPHILS 63.5 % (40.0-80.0); EOSINOPHILE ABSOLUTE 0.3 Th/cmm (0.1-0.4); HEMATOCRIT 44.3 % (41.0-60); HEMOGLOBIN 14.8 gm/dL (12-16); MEAN CELL VOLUME 86.3 fl (80-99); MEAN CORPUSCULAR HEMOGLOBIN 28.9 pg (26.0-30.0); MEAN CORPUSCULAR HGB CONC 33.5 pg (28.0-36.0); MEAN PLATELET VOLUME 8.4 fl; MONOCYTE ABSOLUTE 1.2 Th/cmm (0.3-1.0); NEUTROPHILE ABSOLUTE 6.5 Th/cmm (1.8-8.0); PLATELET COUNT 221 Th/cmm (150-400); RED BLOOD COUNT 5.13 Mil/cmm (4.30-5.70); RED CELL DISTRIBUTION WIDTH 14.1 % (11.5-20.0)
[2018-05-22 07:00] LABS: INR 0.99 (0.5-1.4); PROTHROMBIN TIME (TEST) 10.3 SECONDS (9.5-11.5)
[2018-05-22 07:01] LABS: ANION GAP 8.3 (7.0-16.0); BUN - UREA NITROGEN 13 mg/dL (7-25); CALCIUM SERUM 8.3 mg/dL (8.6-10.3); CARBON DIOXIDE 26.5 mEq/L (21.0-31.0); CHLORIDE 105 mEq/L (98-107); CREATININE - SERUM 0.6 mg/dL (0.7-1.3); GFR AFRICAN-AMERICAN > 60.0 ml/min (>90); GFR NON AFRICAN-AMERICAN > 60.0 ml/min; GLUCOSE 114 mg/dL (70-105); POTASSIUM SERUM 3.8 mEq/L (3.5-5.1); SODIUM SERUM 136 mEq/L (136-145)
[2018-05-22] MEDS: Aspirin 81mg Chewable Tab PO SCH (08:27)
[2018-05-22] MEDS: Multivitamin w/ Minerals Tab PO SCH (08:28)
[2018-05-22] MEDS ORDERED: Propofol 10 mg/mL 20mL Vial **SURGERY USE ONLY IV ONE (13:50)
[2018-05-22] MEDS ORDERED: Lidocaine 2% Gel 5 mL TP ONE (13:50)
--- NOTE | 2018-05-22 14:18 | Infectious Disease Prog Note ---
Infectious Disease Subjective - Review of Systems Service Date: 05/22/18 Subjective: There is no new change, no fever. Infectious Disease Objective - Results Result Diagrams: 05/22/18 06:26 05/22/18 06:26 Recent Labs: Laboratory Last Values WBC 10.0 Th/cmm (4.8-10.8) 05/22/18 06: RBC 5.13 Mil/cmm (4.30-5.70) 05/22/18 06:26 Hgb 14.8 gm/dL (12-16) 05/22/18 06:26 Hct 44.3 % (41.0-60) 05/22/18 06:26 MCV 86.3 fl (80-99) 05/22/18 06:26 MCH 28.9 pg (26.0-30.0) 05/22/18 06: MCHC Differential 33.5 pg (28.0-36.0) 05/22/18 06:26 RDW 14.1 % (11.5-20.0) 05/22/18 06:26 Plt Count 221 Th/cmm (150-400) 05/22/18 06:26 MPV 8.4 fl 05/22/18 06:26 Neutrophils % 63.5 % (40.0-80.0) 05/22/18 06: Lymphocytes % 20.5 % (20.0-50.0) 05/22/18 06:26 Monocytes % 12.0 % (2.0-10.0) H 05/22/18 06: Eosinophils % 3.5 % (0.0-5.0) 05/22/18 06: Basophils % 0.5 % (0.0-2.0) 05/22/18 06:26 PT 10.3 SECONDS (9.5-11.5) 05/22/18 06:26 INR 0.99 (0.5-1.4) 05/22/18 06:26 Sodium 136 mEq/L (136-145) 05/22/18 06:26 Potassium 3.8 mEq/L (3.5-5.1) 05/22/18 06:26 Chloride 105 mEq/L (98-107) 05/22/18 06:26 Carbon Dioxide 26.5 mEq/L (21.0-31.0) 06/29/18 06:26 Anion Gap 8.3 (7.0-16.0) 05/22/18 06:26 BUN 13 mg/dL (7-25) 05/22/18 06:26 Creatinine 0.6 mg/dL (0.7-1.3) L 05/22/18 06:26 Est GFR ( Amer) > 60.0 ml/min (>90) 05/22/18 06:26 Est GFR (Non-Af Amer) > 60.0 ml/min 05/22/18 06:26 BUN/Creatinine Ratio 21.7 05/22/18 06:26 Glucose 114 mg/dL (70-105) H 05/22/18 06:26 POC Glucose 105 MG/DL (70 - 105) 05/22/18 06:43 Hemoglobin A1c % 7.2 % (4.0-6.0) H 05/20/18 20:04 Calcium 8.3 mg/dL (8.6-10.3) L 05/22/18 06:26 Total Bilirubin 0.3 mg/dL (0.3-1.0) 05/20/18 20:04 AST 15 U/L (13-39) 05/20/18 20:04 ALT 12 U/L (7-52) 05/20/18 20:04 Alkaline Phosphatase 87 U/L (34-104) 05/20/18 20:04 Creatine Kinase 127 U/L (30-223) 05/20/18 20:04 Troponin I 0.06 ng/mL (0.01-0.05) H 05/20/18 20:04 B-Natriuretic Peptide 116.0 pg/mL (5.0-100.0) H 05/20/18 20:04 Total Protein 7.2 gm/dL (6.0-8.3) 05/20/18 20:04 Albumin 4.2 gm/dL (4.2-5.5) 05/20/18 20:04 Globulin 3.0 gm/dL 05/20/18 20:04 Albumin/Globulin Ratio 1.4 (1.0-1.8) 05/20/18 20:04 Triglycerides 144 mg/dL (<150) 05/20/18 20:04 Cholesterol 158 mg/dL (<200) 05/20/18 20:04 LDL Cholesterol Direct 105 mg/dL (75-193) 05/20/18 20:04 HDL Cholesterol 39 mg/dL (23-92) 05/20/18 20:04 Amylase 30 U/L (29-103) 05/20/18 20:04 Lipase 14 U/L (11-82) 05/20/18 20:04 Urine Source CLEAN C 05/21/18 06:10 Urine Color YELLOW 05/21/18 06:10 Urine Clarity CLOUDY (CLEAR) 05/21/18 06:10 Urine pH 6.0 (4.6 - 8.0) 05/21/18 06:10 Ur Specific [place] 1.020 (1.005-1.030) 05/21/18 06:10 Urine Protein 100 mg/dL (NEGATIVE) H 05/21/18 06:10 Urine Glucose (UA) NEGATIVE mg/dL (NEGATIVE) 05/21/18 06:10 Urine Ketones NEGATIVE mg/dL (NEGATIVE) 05/21/18 06:10 Urine Blood MODERATE (NEGATIVE) H 05/21/18 06:10 Urine Nitrate NEGATIVE (NEGATIVE) 05/21/18 06:10 Urine Bilirubin NEGATIVE (NEGATIVE) 05/21/18 06:10 Urine Urobilinogen 0.2 E.U./dL (0.2 - 1.0) 05/21/18 06:10 Ur Leukocyte Esterase LARGE (NEGATIVE) H 05/21/18 06:10 Urine RBC 2-5 /hpf (0-5) H 05/21/18 06:10 Urine WBC >100 /hpf (0-5) H 05/21/18 06:10 Ur Epithelial Cells MODERATE /lpf (FEW) 05/21/18 06:10 Urine Bacteria 4+ /hpf (NONE SEEN) H 05/21/18 06:10 Urine Sperm MODERATE /hpf (NONE SEEN) 05/21/18 06:10 Blood Type O NEGATIVE 05/22/18 08:16 Antibody Screen NEGATIVE 05/22/18 08:16 - Physical Exam Vitals and I&O: Vital Signs Temp 97.2 F 05/22/18 11:42 Pulse 75 05/22/18 11:42 Resp 16 05/22/18 13:22 BP 136/70 05/22/18 11:42 Pulse Ox 97 05/22/18 11:42 Intake & Output 0605/22/18 05/22/18 18:59 06:59 18:59 Intake Total 946.25 1000 1400 Output Total 200 Balance 946.25 800 1400 Weight (lbs) 62.142 kg 62.142 kg Intake: Intake, IV Amount 946.25 1000 Sodium Chloride 0.45% 1, 946.25 1000 000 ml @ 75 mls/hr IV . [id number] [facility] Rx#:[id number] Oral 1400 Output: Urine 200 Other: # Voids 3 # Bowel Movements 3 3 Stool Characteristics Soft Liquid Foamy Brown Weight Source Bedscale Bedscale Active Medications: Current Medications Acetaminophen (Tylenol) 650 mg PO Q4HR PRN PRN Reason: FEVER TEMP >101, AND MILD PAIN Stop: 07/19/18 21:22 Amitriptyline HCl (Elavil) 50 mg PO HS [facility] Stop: 07/20/18 20:59 Last Admin: 05/21/18 21:00 Dose: 50 mg Ascorbic Acid (Vitamin C) 500 mg PO DAILY [facility] Stop: 07/20/18 08:59 Last Admin: 05/22/18 08:27 Dose: Not Given Aspirin (Aspirin Chewable) 81 mg PO DAILY [facility] Stop: 07/20/18 08:59 Last Admin: 05/22/18 08:27 Dose: Not Given Baclofen (Lioresal) 10 mg PO Q8H [facility] Stop: 07/19/18 20:59 Last Admin: 05/22/18 13:20 Dose: Not Given Cholecalciferol (Vitamin D3) 1,000 iu PO DAILY [facility] Stop: 07/20/18 08:59 Last Admin: 05/22/18 08:28 Dose: Not Given Docusate Sodium (Colace) 100 mg PO DAILY [facility] Stop: 07/20/18 08:59 Last Admin: 05/22/18 08:28 Dose: Not Given Hydromorphone HCl (Dilaudid) 3 mg IM Q6H PRN PRN Reason: Pain (Severe) Stop: 07/19/18 21:22 Last Admin: 05/22/18 08:20 Dose: 3 mg Hydromorphone HCl (Dilaudid) 2 mg IVP Q4HR PRN PRN Reason: For severe pain Stop: 07/19/18 22:15 Last Admin: 05/22/18 10:42 Dose: 2 mg Hydromorphone HCl (Dilaudid) 1 mg IVP Q4HR PRN PRN Reason: For moderate pain Stop: 07/19/18 22:18 Sodium Chloride (Nacl 0.45%) 1,000 mls @ 75 mls/hr IV .[id number] [facility] Stop: 07/19/18 22:14 Last Admin: 05/22/18 03:32 Dose: 75 mls/hr Ceftriaxone Sodium 1 gm/ (Sodium Chloride) 50 mls @ 100 mls/hr IV Q24HR [facility] Stop: 07/19/18 22:59 Last Admin: 05/22/18 00:38 Dose: 100 mls/hr Insulin Aspart (Novolog Insulin Sliding Scale) 0 units SUBQ ACHS [facility]; Protocol Stop: 07/20/18 07:29 Last Admin: 05/22/18 13:20 Dose: Not Given Lisinopril (Zestril) 10 mg PO DAILY [facility] Stop: 07/20/18 08:59 Last Admin: 05/22/18 13:20 Dose: Not Given Magnesium Hydroxide (Milk Of Magnesia) 30 ml PO Q24H PRN PRN Reason: Constipation Stop: 07/19/18 21:22 Miscellaneous (Duloxetine Hcl [Cymbalta]) 20 mg PO DAILY [facility] Stop: 07/20/18 08:59 Ondansetron HCl (Zofran) 4 mg IV Q6H PRN PRN Reason: Nausea / Vomiting Stop: 07/19/18 22:19 Pregabalin (Lyrica) 150 mg PO BID [facility] Stop: 07/20/18 08:59 Last Admin: 05/22/18 08:28 Dose: Not Given General: no acute distress, well developed, well nourished HEENT: atraumatic, normocephalic, PERRLA, EOMI Neck: supple, no thyromegaly Cardiovascular: S1S2, regular Lungs: clear to auscultation bilaterally, clear to percussion Abdomen: soft, no tender, no distended Extremities: no cyanosis, no clubbing, no edema Neurological: awake, alert, oriented Skin: intact Infectious Disease Assmt/Plan - Assessment Assessment: 1. Leukocytosis. 2. Abdominal pain. 3. Diabetes mellitus type 2. 4. Hypertension. 5. Hyperlipidemia. - Plan Plan: CPM Nutritional Asmnt/Malnutr-PDOC - Dietary Evaluation Malnutrition Findings (Please click <Entered> for more info): Nutritional Asmnt/Malnutrition Start: 05/21/18 15: 45 Text: Status: Complete Freq: Protocol: Document 05/21/18 15:46 LCKRISTIG (Rec: 05/21/18 16:23 [email or web address]) Nutritional Asmnt/Malnutrition Patient General Information Nutritional Screening High Risk Consult Diagnosis abdominal pain Pertinent Medical Hx/Surgical Hx HTN, DM, asthma/COPD, dyslipidmeia, bilateral BKAs, schizophrenia Subjective Information Consult received for stage IV pressure ulcer to right buttocks. Pt seen sitting up in bed at time of visit. Pt is legally blind and bilateral AKA noted. Pt has colostomy per nurse note. Pt stated he does not care what diet he is on, showed no interest and inpatient regarding diabetic diet and related information. Adj BMI 26.6 Current Diet Order/ Nutrition Support [facility] Pertinent Medications vit C, vit D3, colace, novolog , nacl 0.45% Pertinent Labs 05/20 Glucose 182, POC 124, A1c 7.2 05/21 POC 144 Nutritional Hx/Data Height 1.7 m Height (Calculated Centimeters) 170.2 Current Weight (lbs) 62.142 kg Weight (Calculated Kilograms) 62.1 Weight (Calculated Grams) 48296.2 [place] Body Weight 148 Body Mass Index (BMI) 21.4 Weight Status Approriate GI Symptoms GI Symptoms None Last BM not indicated Difficult in: None Usual diet at home pt stated he has not been following diabetic diet before . Skin Integrity/Comment: OLD BURN SCAR ON LEFT MIDDLE FINGER stage 4 pressure ulcer to right buttock Estimated Nutritional Goals BEE in Kcals: Using Current wt Calories/Kcals/Kg 25-30 Kcals Calculated 2993-8169 Protein: Using Current wt Protein g/k.2-1.4 Protein Calculated 74-103 Fluid: ml 1550-1860ml (1ml/kcal) Nutritional Problem 2. Problem Problem increased nutrition needs ( calorie and protein) Etiology impaired skin integrity Signs/Symptoms: stage IV pressure ulcer to right buttock 1. Problem Problem altered nutrition related labs Etiology hx of DM and pt not following diabetic diet Signs/Symptoms: glucose 182, A1c 7.2 Malnutrition Alert Is there a minimum of two criteria No selected? Query Text:Check all the applicable criteria. A minimum of two criteria are recommended for diagnosis of either severe or non-severe malnutrition. Malnutrition Related to Morbid Obesity Malnutrition related to morbid obesity No Intervention/Recommendation Comments 1. Continue with [facility] diet as ordered. Recommend Carlos BID to help wound healing. If PO intake <50%, will consider adding oral supplement Glucerna BID to increased nutrition intake. 2. Monitor PO intake, wt, labs and skin integrity 3. F/U as high risk in 2-3 days, 05/23-05/24 Expected Outcomes/Goals Expected Outcomes/Goals 1. PO intake to meet at least 75% of nutritional needs. 2. Wt stability, skin integrity to improve, labs to approach WNL.
--- NOTE | 2018-05-22 21:08 | General Progress Note ---
Subjective - Review of Systems Service Date: 05/22/18 Objective - Results Result Diagrams: 05/22/18 06:26 05/22/18 06:26 Recent Labs: Laboratory Last Values WBC 10.0 Th/cmm (4.8-10.8) 05/22/18 06:26 RBC 5.13 Mil/cmm (4.30-5.70) 05/22/18 06:26 Hgb 14.8 gm/dL (12-16) 05/22/18 06:26 Hct 44.3 % (41.0-60) 05/22/18 06:26 MCV 86.3 fl (80-99) 05/22/18 06:26 MCH 28.9 pg (26.0-30.0) 05/22/18 06:26 MCHC Differential 33.5 pg (28.0-36.0) 05/22/18 06:26 RDW 14.1 % (11.5-20.0) 05/22/18 06:26 Plt Count 221 Th/cmm (150-400) 05/22/18 06:26 MPV 8.4 fl 05/22/18 06:26 Neutrophils % 63.5 % (40.0-80.0) 05/22/18 06:26 Lymphocytes % 20.5 % (20.0-50.0) 05/22/18 06:26 Monocytes % 12.0 % (2.0-10.0) H 05/22/18 06: Eosinophils % 3.5 % (0.0-5.0) 05/22/18 06: Basophils % 0.5 % (0.0-2.0) 05/22/18 06: PT 10.3 SECONDS (9.5-11.5) 05/22/18 06:26 INR 0.99 (0.5-1.4) 05/22/18 06:26 Sodium 136 mEq/L (136-145) 05/22/18 06:26 Potassium 3.8 mEq/L (3.5-5.1) 05/22/18 06:26 Chloride 105 mEq/L (98-107) 05/22/18 06:26 Carbon Dioxide 26.5 mEq/L (21.0-31.0) 05/22/18 06:26 Anion Gap 8.3 (7.0-16.0) 05/22/18 06: BUN 13 mg/dL (7-25) 05/22/18 06:26 Creatinine 0.6 mg/dL (0.7-1.3) L 05/22/18 06:26 Est GFR ( Amer) > 60.0 ml/min (>90) 05/22/18 06:26 Est GFR (Non-Af Amer) > 60.0 ml/min 05/22/18 06:26 BUN/Creatinine Ratio 21.7 05/22/18 06:26 Glucose 114 mg/dL (70-105) H 05/22/18 06:26 POC Glucose 97 MG/DL (70 - 105) 05/22/18 20: Hemoglobin A1c % 7.2 % (4.0-6.0) H 05/20/18 20:04 Calcium 8.3 mg/dL (8.6-10.3) L 05/22/18 06:26 Total Bilirubin 0.3 mg/dL (0.3-1.0) 05/20/18 20:04 AST 15 U/L (13-39) 05/20/18 20:04 ALT 12 U/L (7-52) 05/20/18 20:04 Alkaline Phosphatase 87 U/L (34-104) 05/20/18 20:04 Creatine Kinase 127 U/L (30-223) 05/20/18 20:04 Troponin I 0.06 ng/mL (0.01-0.05) H 05/20/18 20:04 B-Natriuretic Peptide 116.0 pg/mL (5.0-100.0) H 05/20/18 20:04 Total Protein 7.2 gm/dL (6.0-8.3) 05/20/18 20:04 Albumin 4.2 gm/dL (4.2-5.5) 05/20/18 20:04 Globulin 3.0 gm/dL 05/20/18 20:04 Albumin/Globulin Ratio 1.4 (1.0-1.8) 05/20/18 20:04 Triglycerides 144 mg/dL (<150) 05/20/18 20:04 Cholesterol 158 mg/dL (<200) 05/20/18 20:04 LDL Cholesterol Direct 105 mg/dL (75-193) 05/20/18 20:04 HDL Cholesterol 39 mg/dL (23-92) 05/20/18 20:04 Amylase 30 U/L (29-103) 05/20/18 20:04 Lipase 14 U/L (11-82) 05/20/18 20:04 Urine Source CLEAN C 05/21/18 06:10 Urine Color YELLOW 05/21/18 06:10 Urine Clarity CLOUDY (CLEAR) 05/21/18 06:10 Urine pH 6.0 (4.6 - 8.0) 05/21/18 06:10 Ur Specific [place] 1.020 (1.005-1.030) 05/21/18 06:10 Urine Protein 100 mg/dL (NEGATIVE) H 05/21/18 06:10 Urine Glucose (UA) NEGATIVE mg/dL (NEGATIVE) 05/21/18 06:10 Urine Ketones NEGATIVE mg/dL (NEGATIVE) 05/21/18 06:10 Urine Blood MODERATE (NEGATIVE) H 05/21/18 06:10 Urine Nitrate NEGATIVE (NEGATIVE) 05/21/18 06:10 Urine Bilirubin NEGATIVE (NEGATIVE) 05/21/18 06:10 Urine Urobilinogen 0.2 E.U./dL (0.2 - 1.0) 05/21/18 06:10 Ur Leukocyte Esterase LARGE (NEGATIVE) H 05/21/18 06:10 Urine RBC 2-5 /hpf (0-5) H 05/21/18 06:10 Urine WBC >100 /hpf (0-5) H 05/21/18 06:10 Ur Epithelial Cells MODERATE /lpf (FEW) 05/21/18 06:10 Urine Bacteria 4+ /hpf (NONE SEEN) H 05/21/18 06:10 Urine Sperm MODERATE /hpf (NONE SEEN) 05/21/18 06:10 Blood Type O NEGATIVE 05/22/18 08:16 Antibody Screen NEGATIVE 05/22/18 08:16 - Physical Exam Vitals and I&O: Vital Signs Temp 97.0 F 05/22/18 20:21 Pulse 87 05/22/18 20:21 Resp 18 05/22/18 20:21 BP 166/101 05/22/18 20:21 Pulse Ox 96 05/22/18 20:21 Intake & Output 05/22/18 05/22/18 05/23/18 06:59 18:59 06:59 Intake Total 1000 2345 600 Output Total 200 500 Balance 800 2345 100 Weight (lbs) 62.142 kg 62.142 kg 76.657 kg Intake: Intake, IV Amount 1000 945 Sodium Chloride 0.45% 1, 1000 945 000 ml @ 75 mls/hr IV . [id number] [facility] Rx#:[id number] Oral 1400 600 Output: Urine 200 500 Other: # Voids 3 3 # Bowel Movements 3 3 3 Stool Characteristics Soft Liquid Foamy Brown Weight Source Bedscale Bedscale Bedscale Active Medications: Current Medications Acetaminophen (Tylenol) 650 mg PO Q4HR PRN PRN Reason: FEVER TEMP >101, AND MILD PAIN Stop: 07/19/18 21:22 Amitriptyline HCl (Elavil) 50 mg PO HS [facility] Stop: 07/20/18 20:59 Last Admin: 05/22/18 20:20 Dose: 50 mg Ascorbic Acid (Vitamin C) 500 mg PO DAILY [facility] Stop: 07/20/18 08:59 Last Admin: 05/22/18 08:27 Dose: Not Given Aspirin (Aspirin Chewable) 81 mg PO DAILY [facility] Stop: 07/20/18 08:59 Last Admin: 05/22/18 08:27 Dose: Not Given Baclofen (Lioresal) 10 mg PO Q8H [facility] Stop: 07/19/18 20:59 Last Admin: 05/22/18 20:24 Dose: 10 mg Cholecalciferol (Vitamin D3) 1,000 iu PO DAILY [facility] Stop: 07/20/18 08:59 Last Admin: 05/22/18 08:28 Dose: Not Given Docusate Sodium (Colace) 100 mg PO DAILY [facility] Stop: 07/20/18 08:59 Last Admin: 05/22/18 08:28 Dose: Not Given Hydromorphone HCl (Dilaudid) 3 mg IM Q6H PRN PRN Reason: Pain (Severe) Stop: 07/19/18 21:22 Last Admin: 05/22/18 08:20 Dose: 3 mg Hydromorphone HCl (Dilaudid) 2 mg IVP Q4HR PRN PRN Reason: For severe pain Stop: 07/19/18 22:15 Last Admin: 05/22/18 16:04 Dose: 2 mg Hydromorphone HCl (Dilaudid) 1 mg IVP Q4HR PRN PRN Reason: For moderate pain Stop: 07/19/18 22:18 Sodium Chloride (Nacl 0.45%) 1,000 mls @ 75 mls/hr IV .[id number] [facility] Stop: 07/19/18 22:14 Last Admin: 05/22/18 16:08 Dose: 75 mls/hr Ceftriaxone Sodium 1 gm/ (Sodium Chloride) 50 mls @ 100 mls/hr IV Q24HR [facility] Stop: 07/19/18 22:59 Last Admin: 05/22/18 00:38 Dose: 100 mls/hr Insulin Aspart (Novolog Insulin Sliding Scale) 0 units SUBQ ACHS [facility]; Protocol Stop: 07/20/18 07:29 Last Admin: 05/22/18 20:20 Dose: Not Given Lisinopril (Zestril) 10 mg PO DAILY [facility] Stop: 07/20/18 08:59 Last Admin: 05/22/18 13:20 Dose: Not Given Magnesium Hydroxide (Milk Of Magnesia) 30 ml PO Q24H PRN PRN Reason: Constipation Stop: 07/19/18 21:22 Miscellaneous (Duloxetine Hcl [Cymbalta]) 20 mg PO DAILY [facility] Stop: 07/20/18 08:59 Ondansetron HCl (Zofran) 4 mg IV Q6H PRN PRN Reason: Nausea / Vomiting Stop: 07/19/18 22:19 Pregabalin (Lyrica) 150 mg PO BID [facility] Stop: 07/20/18 08:59 Last Admin: 05/22/18 16:04 Dose: 150 mg Assessment/Plan - Assessment Assessment: abdominal pain leukocytosis dm htn hyperlipidemia - Plan Plan: iv rocephin continue hoome meds id consult continue the rest of the orders Nutritional Asmnt/Malnutr-PDOC - Dietary Evaluation Malnutrition Findings (Please click <Entered> for more info): Nutritional Asmnt/Malnutrition Start: 05/21/18 15: 45 Text: Status: Complete Freq: Protocol: Document 05/21/18 15:46 LCHENG (Rec: 05/21/18 16:23 [email or web address] [email or web address]) Nutritional Asmnt/Malnutrition Patient General Information Nutritional Screening High Risk Consult Diagnosis abdominal pain Pertinent Medical Hx/Surgical Hx HTN, DM, asthma/COPD, dyslipidmeia, bilateral BKAs, schizophrenia Subjective Information Consult received for stage IV pressure ulcer to right buttocks. Pt seen sitting up in bed at time of visit. Pt is legally blind and bilateral AKA noted. Pt has colostomy per nurse note. Pt stated he does not care what diet he is on, showed no interest and inpatient regarding diabetic diet and related information. Adj BMI 26.6 Current Diet Order/ [facility] Pertinent Medications vit C, vit D3, colace, novolog , nacl 0.45% Pertinent Labs 05/20 Glucose 182, POC 124, A1c 7.2 05/21 POC 144 Nutritional Hx/Data Height 1.7 m Height (Calculated Centimeters) 170.2 Current Weight (lbs) 62.142 kg Weight (Calculated Kilograms) 62.1 Weight (Calculated Grams) 85931.2 [place] Body Weight 148 Body Mass Index (BMI) 21.4 Weight Status Approriate GI Symptoms GI Symptoms None Last BM not indicated Difficult in: None Usual diet at home pt stated he has not been following diabetic diet before . Skin Integrity/Comment: OLD BURN SCAR ON LEFT MIDDLE FINGER stage 4 pressure ulcer to right buttock Estimated Nutritional Goals BEE in Kcals: Using Current wt Calories/Kcals/Kg 25-30 Kcals Calculated 0487-6993 Protein: Using Current wt Protein g/k.2-1.4 Protein Calculated 74-103 Fluid: ml 1550-1860ml (1ml/kcal) Nutritional Problem 2. Problem Problem increased nutrition needs ( calorie and protein) Etiology impaired skin integrity Signs/Symptoms: stage IV pressure ulcer to right buttock 1. Problem Problem altered nutrition related labs Etiology hx of DM and pt not following diabetic diet Signs/Symptoms: glucose 182, A1c 7.2 Malnutrition Alert Is there a minimum of two criteria No selected? Query Text:Check all the applicable criteria. A minimum of two criteria are recommended for diagnosis of either severe or non-severe malnutrition. Malnutrition Related to Morbid Obesity Malnutrition related to morbid obesity No Intervention/Recommendation Comments 1. Continue with [facility] diet as ordered. Recommend Carlos BID to help wound healing. If PO intake <50%, will consider adding oral supplement Glucerna BID to increased nutrition intake. 2. Monitor PO intake, wt, labs and skin integrity 3. F/U as high risk in 2-3 days, 05/23-05/24 Expected Outcomes/Goals Expected Outcomes/Goals 1. PO intake to meet at least 75% of nutritional needs. 2. Wt stability, skin integrity to improve, labs to approach WNL.
--- NOTE | 2018-05-22 21:44 | Operative Report ---
DATE OF SURGERY: 05/22/2018 PROCEDURE: 1. Colonoscopy via stoma. 2. Flexible sigmoidoscopy. PREOPERATIVE DIAGNOSES: 1. Change in bowel habits. 2. Abdominal pain. 3. History of diverting colostomy for sacral decubitus ulcer. POSTOPROCEDURE DIAGNOSES: 1. Flexible sigmoidoscopy showing limited views of rectum due to retained mucus; small internal hemorrhoids. 2. Colonoscopy showing fair bowel preparation of colon; exam otherwise negative cecum. INDICATION: A 57-year-old male with history of bilateral [id number] amputation with a large sacral decubitus ulcer, requiring diverting colostomy. He has change in bowel habits, abdominal distention, and pain. A colonoscopy via stoma and a flexible sigmoidoscopy were planned today for further evaluation. CONSENT: Informed consent was obtained from the patient prior to procedure after detailed explanation of risks, benefits, and alternatives included, but not limited to infection, bleeding, perforation, and . SEDATION: Monitored anesthesia care per Dr. Marshall. DESCRIPTION OF PROCEDURE AND FINDINGS: The procedure took place as an inpatient in the GI suite of [facility]. Initially, the colonoscopy was done to be occult stoma followed by flexible sigmoidoscopy. With the patient in the supine position, the head of bed was slightly elevated via the colostomy site in the left lower quadrant area. A colonoscope was advanced into likely the sigmoid or descending colon. It was advanced up to the cecum, which was visualized by landmarks of ileocecal valve and appendiceal orifice.. The bowel preparation was fair. Lesions less than 5 mm may have been missed. No obvious polyps or mass lesions or diverticula or colitis was identified. The scope was then withdrawn out of the patient via the stoma. The patient was then repositioned into the left lateral decubitus position. Rectal examination revealed somewhat diminished sphincter tone with no rectal masses and the same colonoscope was advanced via the patient's anus and into the rectum with ease. It was only advanced about 3-4 cm beyond the anal verge due to the presence of a large amount of whitish mucus. This was retained in the rectum. It was adherent to the wall. It was unable to be washed off. Examination of the rest of the rectum was somewhat limited. No obvious polyps or mass lesions were identified. Retroflexion was unable to be performed in the rectum and on view of the anal verge revealed small internal hemorrhoids. The patient tolerated the procedure well and no complications are anticipated. RECOMMENDATIONS: 1. Stool softeners to control constipation. 2. Diet as tolerated. 3. Monitor labs. Thank you Dr. Jerrell Kraft for involving us in the care of your patient. If you have any further questions, please call us. JOB# [id number]
[2018-05-23] MEDS: HYDROmorphone 1 mg/mL 1mL Syr IVP PRN ×5 (03:00→20:19)
[2018-05-23] MEDS: Sodium Chloride 0.45% 1,000 ML IV SCH ×2 (05:10→18:43)
[2018-05-23] MEDS: INSULIN ASPART SLIDING SCALE 100 UNITS/ML UNIT SUBQ SCH ×4 (06:40→21:19)
[2018-05-23] MEDS: Aspirin 81mg Chewable Tab PO SCH (08:23)
[2018-05-23] MEDS: Multivitamin w/ Minerals Tab PO SCH (08:24)
[2018-05-23 11:14] LABS: % BASOPHILS 0.3 % (0.0-2.0); % EOSINOPHILS 4.3 % (0.0-5.0); % LYMPHOCYTES 12.6 % (20.0-50.0); % MONOCYTES 6.3 % (2.0-10.0); % NEUTROPHILS 76.5 % (40.0-80.0); EOSINOPHILE ABSOLUTE 0.4 Th/cmm (0.1-0.4); HEMATOCRIT 49.8 % (41.0-60); HEMOGLOBIN 16.7 gm/dL (12-16); LYMPHOCYTE ABSOLUTE 1.1 Th/cmm (1.5-3.0); MEAN CELL VOLUME 87.8 fl (80-99); MEAN CORPUSCULAR HEMOGLOBIN 29.5 pg (26.0-30.0); MEAN CORPUSCULAR HGB CONC 33.6 pg (28.0-36.0); MEAN PLATELET VOLUME 8.1 fl; MONOCYTE ABSOLUTE 0.5 Th/cmm (0.3-1.0); NEUTROPHILE ABSOLUTE 6.4 Th/cmm (1.8-8.0); PLATELET COUNT 232 Th/cmm (150-400); RED BLOOD COUNT 5.68 Mil/cmm (4.30-5.70); RED CELL DISTRIBUTION WIDTH 13.7 % (11.5-20.0); WHITE BLOOD COUNT 8.4 Th/cmm (4.8-10.8)
[2018-05-23 11:30] LABS: ALB/GLOB RATIO 1.3 (1.0-1.8); ALBUMIN 3.8 gm/dL (4.2-5.5); ALKALINE PHOSPHATASE 72 U/L (34-104); ANION GAP 8.9 (7.0-16.0); BILIRUBIN,TOTAL 0.4 mg/dL (0.3-1.0); BUN - UREA NITROGEN 6 mg/dL (7-25); CALCIUM SERUM 8.8 mg/dL (8.6-10.3); CARBON DIOXIDE 29.1 mEq/L (21.0-31.0); CHLORIDE 100 mEq/L (98-107); CREATININE - SERUM 0.6 mg/dL (0.7-1.3); GFR AFRICAN-AMERICAN > 60.0 ml/min (>90); GFR NON AFRICAN-AMERICAN > 60.0 ml/min; GLUCOSE 224 mg/dL (70-105); SGOT 17 U/L (13-39); SGPT/ALT 10 U/L (7-52); SODIUM SERUM 134 mEq/L (136-145); TOTAL PROTEIN,SERUM 6.7 gm/dL (6.0-8.3)
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
[2018-05-23] MEDS ORDERED: Maalox 30 mL Cup PO PRN (15:14)
--- NOTE | 2018-05-23 17:02 | GI Progress Note ---
Subjective - Review of Systems Service Date: 05/23/18 Subjective: GI NOTE VAGUE ABD DISCOMFORT - WANTS [place]. Objective - Results Result Diagrams: 05/23/18 11:08 05/23/18 11:08 Recent Labs: Laboratory Last Values WBC 8.4 Th/cmm (4.8-10.8) 05/23/18 11:08 RBC 5.68 Mil/cmm (4.30-5.70) 05/23/18 11:08 Hgb 16.7 gm/dL (12-16) 05/23/18 11:08 Hct 49.8 % (41.0-60) 05/23/18 11:08 MCV 87.8 fl (80-99) 05/23/18 11:08 MCH 29.5 pg (26.0-30.0) 05/23/18 11:08 MCHC Differential 33.6 pg (28.0-36.0) 05/23/18 11:08 RDW 13.7 % (11.5-20.0) 05/23/18 11:08 Plt Count 232 Th/cmm (150-400) 05/23/18 11:08 MPV 8.1 fl 05/23/18 11:08 Neutrophils % 76.5 % (40.0-80.0) 05/23/18 11:08 Lymphocytes % 12.6 % (20.0-50.0) L 05/23/18 11:08 Monocytes % 6.3 % (2.0-10.0) 05/23/18 11:08 Eosinophils % 4.3 % (0.0-5.0) 05/23/18 11:08 Basophils % 0.3 % (0.0-2.0) 05/23/18 11:08 PT 10.3 SECONDS (9.5-11.5) 05/22/18 06:26 INR 0.99 (0.5-1.4) 05/22/18 06:26 Sodium 134 mEq/L (136-145) L 05/23/18 11:08 Potassium 4.0 mEq/L (3.5-5.1) 05/23/18 11:08 Chloride 100 mEq/L (98-107) 05/23/18 11:08 Carbon Dioxide 29.1 mEq/L (21.0-31.0) 05/23/18 11:08 Anion Gap 8.9 (7.0-16.0) 05/23/18 11:08 BUN 6 mg/dL (7-25) L 05/23/18 11:08 Creatinine 0.6 mg/dL (0.7-1.3) L 05/23/18 11:08 Est GFR ( Amer) > 60.0 ml/min (>90) 05/23/18 11:08 Est GFR (Non-Af Amer) > 60.0 ml/min 05/23/18 11:08 BUN/Creatinine Ratio 10.0 05/23/18 11:08 Glucose 224 mg/dL (70-105) H 05/23/18 11:08 POC Glucose 106 MG/DL (70 - 105) H 05/23/18 05:57 Hemoglobin A1c % 7.2 % (4.0-6.0) H 05/20/18 20:04 Calcium 8.8 mg/dL (8.6-10.3) 05/23/18 11:08 Total Bilirubin 0.4 mg/dL (0.3-1.0) 05/23/18 11:08 AST 17 U/L (13-39) 05/23/18 11:08 ALT 10 U/L (7-52) 05/23/18 11:08 Alkaline Phosphatase 72 U/L (34-104) 05/23/18 11:08 Creatine Kinase 127 U/L (30-223) 05/20/18 20:04 Troponin I 0.06 ng/mL (0.01-0.05) H 05/20/18 20:04 B-Natriuretic Peptide 116.0 pg/mL (5.0-100.0) H 05/20/18 20:04 Total Protein 6.7 gm/dL (6.0-8.3) 05/23/18 11:08 Albumin 3.8 gm/dL (4.2-5.5) L 05/23/18 11:08 Globulin 2.9 gm/dL 05/23/18 11:08 Albumin/Globulin Ratio 1.3 (1.0-1.8) 05/23/18 11:08 Triglycerides 144 mg/dL (<150) 05/20/18 20:04 Cholesterol 158 mg/dL (<200) 05/20/18 20:04 LDL Cholesterol Direct 105 mg/dL (75-193) 05/20/18 20:04 HDL Cholesterol 39 mg/dL (23-92) 05/20/18 20:04 Amylase 30 U/L (29-103) 05/20/18 20:04 Lipase 14 U/L (11-82) 05/20/18 20:04 Urine Source CLEAN C 05/21/18 06:10 Urine Color YELLOW 05/21/18 06:10 Urine Clarity CLOUDY (CLEAR) 05/21/18 06:10 Urine pH 6.0 (4.6 - 8.0) 05/21/18 06:10 Ur Specific [place] 1.020 (1.005-1.030) 05/21/18 06:10 Urine Protein 100 mg/dL (NEGATIVE) H 05/21/18 06:10 Urine Glucose (UA) NEGATIVE mg/dL (NEGATIVE) 05/21/18 06:10 Urine Ketones NEGATIVE mg/dL (NEGATIVE) 05/21/18 06:10 Urine Blood MODERATE (NEGATIVE) H 05/21/18 06:10 Urine Nitrate NEGATIVE (NEGATIVE) 05/21/18 06:10 Urine Bilirubin NEGATIVE (NEGATIVE) 05/21/18 06:10 Urine Urobilinogen 0.2 E.U./dL (0.2 - 1.0) 05/21/18 06:10 Ur Leukocyte Esterase LARGE (NEGATIVE) H 05/21/18 06:10 Urine RBC 2-5 /hpf (0-5) H 05/21/18 06:10 Urine WBC >100 /hpf (0-5) H 05/21/18 06:10 Ur Epithelial Cells MODERATE /lpf (FEW) 05/21/18 06:10 Urine Bacteria 4+ /hpf (NONE SEEN) H 05/21/18 06:10 Urine Sperm MODERATE /hpf (NONE SEEN) 05/21/18 06:10 Blood Type O NEGATIVE 05/22/18 08:16 Antibody Screen NEGATIVE 05/22/18 08:16 - Physical Exam Vitals and I&O: Vital Signs Temp 97.2 F 05/23/18 16:00 Pulse 58 05/23/18 16:00 Resp 18 05/23/18 16:00 BP 144/98 05/23/18 16:00 Pulse Ox 95 05/23/18 16:00 Intake & Output 05/22/18 05/23/18 05/23/18 18:59 06:59 18:59 Intake Total 2345 2107.5 Output Total 2200 Balance 2345 -92.5 Weight (lbs) 62.142 kg 77.564 kg Intake: Intake, IV Amount 945 1027.5 Sodium Chloride 0.45% 1, 945 977.5 000 ml @ 75 mls/hr IV . [id number] [facility] Rx#:[id number] cefTRIAXone 1 gm In 50 Sodium Chloride 0.9% 50 ml @ 100 mls/hr IV Q24HR [facility] Rx#:[id number] Oral 1400 1080 Output: Urine 1600 Stool 600 Other: # Voids 3 3 # Bowel Movements 3 3 Stool Characteristics Liquid Liquid Liquid Brown Brown Brown Weight Source Bedscale Bedscale Active Medications: Current Medications Acetaminophen (Tylenol) 650 mg PO Q4HR PRN PRN Reason: FEVER TEMP >101, AND MILD PAIN Stop: 07/19/18 21:22 Al Hydrox/Mg Hydrox/Simethicone (Maalox) 30 ml PO Q4HR PRN PRN Reason: Abdominal Pain Stop: 07/22/18 15:13 Last Admin: 05/23/18 16:18 Dose: 30 ml Amitriptyline HCl (Elavil) 50 mg PO HS [facility] Stop: 07/20/18 20:59 Last Admin: 05/22/18 20:20 Dose: 50 mg Ascorbic Acid (Vitamin C) 500 mg PO DAILY [facility] Stop: 07/20/18 08:59 Last Admin: 05/23/18 08:23 Dose: 500 mg Aspirin (Aspirin Chewable) 81 mg PO DAILY [facility] Stop: 07/20/18 08:59 Last Admin: 05/23/18 08:23 Dose: 81 mg Baclofen (Lioresal) 10 mg PO Q8H [facility] Stop: 07/19/18 20:59 Last Admin: 05/23/18 12:46 Dose: 10 mg Cholecalciferol (Vitamin D3) 1,000 iu PO DAILY [facility] Stop: 07/20/18 08:59 Last Admin: 05/23/18 08:23 Dose: 1,000 iu Docusate Sodium (Colace) 100 mg PO DAILY [facility] Stop: 07/20/18 08:59 Last Admin: 05/23/18 08:24 Dose: Not Given Hydromorphone HCl (Dilaudid) 3 mg IM Q6H PRN PRN Reason: Pain (Severe) Stop: 07/19/18 21:22 Last Admin: 05/22/18 08:20 Dose: 3 mg Hydromorphone HCl (Dilaudid) 2 mg IVP Q4HR PRN PRN Reason: For severe pain Stop: 07/19/18 22:15 Last Admin: 05/23/18 16:05 Dose: 2 mg Hydromorphone HCl (Dilaudid) 1 mg IVP Q4HR PRN PRN Reason: For moderate pain Stop: 07/19/18 22:18 Sodium Chloride (Nacl 0.45%) 1,000 mls @ 75 mls/hr IV .[id number] [facility] Stop: 07/19/18 22:14 Last Admin: 05/23/18 05:10 Dose: 75 mls/hr Ceftriaxone Sodium 1 gm/ (Sodium Chloride) 50 mls @ 100 mls/hr IV Q24HR [facility] Stop: 07/19/18 22:59 Last Infusion: 05/23/18 00:01 Dose: Infused Insulin Aspart (Novolog Insulin Sliding Scale) 0 units SUBQ ACHS [facility]; Protocol Stop: 07/20/18 07:29 Last Admin: 05/23/18 12:45 Dose: 4 units Lisinopril (Zestril) 10 mg PO DAILY [facility] Stop: 07/20/18 08:59 Last Admin: 05/23/18 08:23 Dose: 10 mg Magnesium Hydroxide (Milk Of Magnesia) 30 ml PO Q24H PRN PRN Reason: Constipation Stop: 07/19/18 21:22 Miscellaneous (Duloxetine Hcl [Cymbalta]) 20 mg PO DAILY [facility] Stop: 07/20/18 08:59 Ondansetron HCl (Zofran) 4 mg IV Q6H PRN PRN Reason: Nausea / Vomiting Stop: 07/19/18 22:19 Pregabalin (Lyrica) 150 mg PO BID [facility] Stop: 07/20/18 08:59 Last Admin: 05/23/18 16:06 Dose: 150 mg General: Alert, No acute distress HEENT: Atraumatic Neck: Supple Cardiovascular: Regular rate Lungs: Clear to auscultation Abdomen: Bowel sounds, Soft, Other (COLOSTOMY), no Tender, no Distended Assessment/Plan - Assessment Assessment: IMPRESSION: 1. ABD PAIN DUE TO CONSTIPATION, NOW IMPROVED. 2. COLONOSCOPY VIA STOMA AND FLEX SIG VIA RECTUM ESSENTIALLY NEG. 3. PVD S/P B AKA. 4. BLINDNESS. RECS: 1. MAALOX. 2. STOOL SOFTENERS. 3. DIET ANURAG. 4. COLOSTOMY CARE. 5. GI BALLESTEROS STABLE.
[2018-05-23] MEDS: cefTRIAXone 1 GM in Sodium Chloride 0.9% 50 ML IV SCH (23:25)
[2018-05-24] MEDS: HYDROmorphone 1 mg/mL 1mL Syr IVP PRN ×7 (00:28→23:13)
--- NOTE | 2018-05-24 02:31 | Progress Notes ---
DATE: 05/23/2018 SUBJECTIVE: The patient was seen in his room. The patient is asleep, but is easily arousable. Otherwise, the patient is in no acute distress. The patient has been complaining of intermittent abdominal pain, status post colonoscopy done yesterday. No signs of bleeding noted. Otherwise, the patient is in no acute distress. OBJECTIVE: VITAL SIGNS: Temperature 98.1, heart rate of 90, blood pressure 107/97, respirations of 18, and 96% on room air. HEENT: Head is atraumatic and normocephalic. Eyes: Bilateral conjunctivae are clear. Bilateral pupils are equally round and reactive. NECK: Supple. No JVD. CARDIOVASCULAR: S1 and S2, without murmur. PULMONARY: Clear to auscultation. GASTROINTESTINAL: Soft and nontender without guarding. Positive bowel sounds. Positive colostomy. MUSCULOSKELETAL: No clubbing. No cyanosis. Positive bilateral lower extremity amputation. ASSESSMENT: 1. Abdominal pain. 2. Constipation. 3. Leukocytosis. 4. Osteoarthritis. 5. Chronic pain syndrome. 6. Diabetes mellitus. 7. Hypertension. 8. Hyperlipidemia. PLAN: We will keep the patient inpatient for monitoring of abdominal pain. We will provide pain management as needed. We will also have monitor laboratories and advance diet as tolerated. Treatment plans were discussed with the patient's nurse. Treatment plans were discussed with Dr. Kraft. JOB# [id number]
[2018-05-24] MEDS: Sodium Chloride 0.45% 1,000 ML IV SCH ×2 (05:27→23:22)
[2018-05-24] MEDS: INSULIN ASPART SLIDING SCALE 100 UNITS/ML UNIT SUBQ SCH ×4 (07:38→21:46)
[2018-05-24] MEDS: Multivitamin w/ Minerals Tab PO SCH (09:18)
[2018-05-24] MEDS: Aspirin 81mg Chewable Tab PO SCH (09:19)
--- NOTE | 2018-05-24 10:06 | GI Progress Note ---
Subjective - Review of Systems Service Date: 05/24/18 Subjective: GI NOTE NO ABD PAIN. ANURAG ORAL DIET. Objective - Results Result Diagrams: 05/23/18 11:08 05/23/18 11:08 Recent Labs: Laboratory Last Values WBC 8.4 Th/cmm (4.8-10.8) 05/23/18 11:08 RBC 5.68 Mil/cmm (4.30-5.70) 05/23/18 11:08 Hgb 16.7 gm/dL (12-16) 05/23/18 11:08 Hct 49.8 % (41.0-60) 05/23/18 11:08 MCV 87.8 fl (80-99) 05/23/18 11:08 MCH 29.5 pg (26.0-30.0) 05/23/18 11:08 MCHC Differential 33.6 pg (28.0-36.0) 05/23/18 11:08 RDW 13.7 % (11.5-20.0) 05/23/18 11:08 Plt Count 232 Th/cmm (150-400) 05/23/18 11:08 MPV 8.1 fl 05/23/18 11:08 Neutrophils % 76.5 % (40.0-80.0) 05/23/18 11:08 Lymphocytes % 12.6 % (20.0-50.0) L 05/23/18 11:08 Monocytes % 6.3 % (2.0-10.0) 05/23/18 11:08 Eosinophils % 4.3 % (0.0-5.0) 05/23/18 11:08 Basophils % 0.3 % (0.0-2.0) 05/23/18 11:08 PT 10.3 SECONDS (9.5-11.5) 05/22/18 06:26 INR 0.99 (0.5-1.4) 05/22/18 06:26 Sodium 134 mEq/L (136-145) L 05/23/18 11:08 Potassium 4.0 mEq/L (3.5-5.1) 05/23/18 11:08 Chloride 100 mEq/L (98-107) 05/23/18 11:08 Carbon Dioxide 29.1 mEq/L (21.0-31.0) 05/23/18 11:08 Anion Gap 8.9 (7.0-16.0) 05/23/18 11:08 BUN 6 mg/dL (7-25) L 05/23/18 11:08 Creatinine 0.6 mg/dL (0.7-1.3) L 05/23/18 11:08 Est GFR ( Amer) > 60.0 ml/min (>90) 05/23/18 11:08 Est GFR (Non-Af Amer) > 60.0 ml/min 05/23/18 11:08 BUN/Creatinine Ratio 10.0 05/23/18 11:08 Glucose 224 mg/dL (70-105) H 05/23/18 11:08 POC Glucose 124 MG/DL (70 - 105) H 05/24/18 06:02 Hemoglobin A1c % 7.2 % (4.0-6.0) H 05/20/18 20:04 Calcium 8.8 mg/dL (8.6-10.3) 05/23/18 11:08 Total Bilirubin 0.4 mg/dL (0.3-1.0) 05/23/18 11:08 AST 17 U/L (13-39) 05/23/18 11:08 ALT 10 U/L (7-52) 05/23/18 11:08 Alkaline Phosphatase 72 U/L (34-104) 05/23/18 11:08 Creatine Kinase 127 U/L (30-223) 05/20/18 20:04 Troponin I 0.06 ng/mL (0.01-0.05) H 05/20/18 20:04 B-Natriuretic Peptide 116.0 pg/mL (5.0-100.0) H 05/20/18 20:04 Total Protein 6.7 gm/dL (6.0-8.3) 05/23/18 11:08 Albumin 3.8 gm/dL (4.2-5.5) L 05/23/18 11:08 Globulin 2.9 gm/dL 05/23/18 11:08 Albumin/Globulin Ratio 1.3 (1.0-1.8) 05/23/18 11:08 Triglycerides 144 mg/dL (<150) 05/20/18 20:04 Cholesterol 158 mg/dL (<200) 05/20/18 20:04 LDL Cholesterol Direct 105 mg/dL (75-193) 05/20/18 20:04 HDL Cholesterol 39 mg/dL (23-92) 05/20/18 20:04 Amylase 30 U/L (29-103) 05/20/18 20:04 Lipase 14 U/L (11-82) 05/20/18 20:04 Urine Source CLEAN C 05/21/18 06:10 Urine Color YELLOW 05/21/18 06:10 Urine Clarity CLOUDY (CLEAR) 05/21/18 06:10 Urine pH 6.0 (4.6 - 8.0) 05/21/18 06:10 Ur Specific [place] 1.020 (1.005-1.030) 05/21/18 06:10 Urine Protein 100 mg/dL (NEGATIVE) H 05/21/18 06:10 Urine Glucose (UA) NEGATIVE mg/dL (NEGATIVE) 05/21/18 06:10 Urine Ketones NEGATIVE mg/dL (NEGATIVE) 05/21/18 06:10 Urine Blood MODERATE (NEGATIVE) H 05/21/18 06:10 Urine Nitrate NEGATIVE (NEGATIVE) 05/21/18 06:10 Urine Bilirubin NEGATIVE (NEGATIVE) 05/21/18 06:10 Urine Urobilinogen 0.2 E.U./dL (0.2 - 1.0) 05/21/18 06:10 Ur Leukocyte Esterase LARGE (NEGATIVE) H 05/21/18 06:10 Urine RBC 2-5 /hpf (0-5) H 05/21/18 06:10 Urine WBC >100 /hpf (0-5) H 05/21/18 06:10 Ur Epithelial Cells MODERATE /lpf (FEW) 05/21/18 06:10 Urine Bacteria 4+ /hpf (NONE SEEN) H 05/21/18 06:10 Urine Sperm MODERATE /hpf (NONE SEEN) 05/21/18 06:10 Blood Type O NEGATIVE 05/22/18 08:16 Antibody Screen NEGATIVE 05/22/18 08:16 - Physical Exam Vitals and I&O: Vital Signs Temp 97.6 F 05/24/18 08:00 Pulse 84 05/24/18 09:18 Resp 18 05/24/18 08:00 BP 158/94 05/24/18 09:18 Pulse Ox 100 05/24/18 08:00 Intake & Output 0605/24/18 05/24/18 18:59 06:59 18:59 Intake Total 1000 855 Output Total 900 Balance 1000 -45 Weight (lbs) 78.608 kg Intake: Intake, IV Amount 1000 855 Sodium Chloride 0.45% 1, 1000 805 000 ml @ 75 mls/hr IV . [id number] [facility] Rx#:[id number] cefTRIAXone 1 gm In 50 Sodium Chloride 0.9% 50 ml @ 100 mls/hr IV Q24HR [facility] Rx#:[id number] Output: Urine 900 Other: Stool Characteristics Liquid Liquid Brown Brown Weight Source Bedscale Active Medications: Current Medications Acetaminophen (Tylenol) 650 mg PO Q4HR PRN PRN Reason: FEVER TEMP >101, AND MILD PAIN Stop: 07/19/18 21:22 Al Hydrox/Mg Hydrox/Simethicone (Maalox) 30 ml PO Q4HR PRN PRN Reason: Abdominal Pain Stop: 07/22/18 15:13 Last Admin: 05/23/18 16:18 Dose: 30 ml Amitriptyline HCl (Elavil) 50 mg PO HS [facility] Stop: 07/20/18 20:59 Last Admin: 05/23/18 20:18 Dose: 50 mg Ascorbic Acid (Vitamin C) 500 mg PO DAILY [facility] Stop: 07/20/18 08:59 Last Admin: 05/24/18 09:18 Dose: 500 mg Aspirin (Aspirin Chewable) 81 mg PO DAILY [facility] Stop: 07/20/18 08:59 Last Admin: 05/24/18 09:19 Dose: 81 mg Baclofen (Lioresal) 10 mg PO Q8H [facility] Stop: 07/19/18 20:59 Last Admin: 05/24/18 05:09 Dose: 10 mg Cholecalciferol (Vitamin D3) 1,000 iu PO DAILY [facility] Stop: 07/20/18 08:59 Last Admin: 05/24/18 09:19 Dose: 1,000 iu Docusate Sodium (Colace) 100 mg PO DAILY [facility] Stop: 07/20/18 08:59 Last Admin: 05/24/18 09:19 Dose: Not Given Hydromorphone HCl (Dilaudid) 3 mg IM Q6H PRN PRN Reason: Pain (Severe) Stop: 07/19/18 21:22 Last Admin: 05/22/18 08:20 Dose: 3 mg Hydromorphone HCl (Dilaudid) 2 mg IVP Q4HR PRN PRN Reason: For severe pain Stop: 07/19/18 22:15 Last Admin: 05/24/18 09:19 Dose: 2 mg Hydromorphone HCl (Dilaudid) 1 mg IVP Q4HR PRN PRN Reason: For moderate pain Stop: 07/19/18 22:18 Sodium Chloride (Nacl 0.45%) 1,000 mls @ 75 mls/hr IV .[id number] [facility] Stop: 07/19/18 22:14 Last Admin: 05/24/18 05:27 Dose: 75 mls/hr Ceftriaxone Sodium 1 gm/ (Sodium Chloride) 50 mls @ 100 mls/hr IV Q24HR [facility] Stop: 07/19/18 22:59 Last Infusion: 05/24/18 00:30 Dose: Infused Insulin Aspart (Novolog Insulin Sliding Scale) 0 units SUBQ ACHS [facility]; Protocol Stop: 07/20/18 07:29 Last Admin: 05/24/18 07:38 Dose: Not Given Lisinopril (Zestril) 10 mg PO DAILY [facility] Stop: 07/20/18 08:59 Last Admin: 05/24/18 09:18 Dose: 10 mg Magnesium Hydroxide (Milk Of Magnesia) 30 ml PO Q24H PRN PRN Reason: Constipation Stop: 07/19/18 21:22 Miscellaneous (Duloxetine Hcl [Cymbalta]) 20 mg PO DAILY [facility] Stop: 07/20/18 08:59 Ondansetron HCl (Zofran) 4 mg IV Q6H PRN PRN Reason: Nausea / Vomiting Stop: 07/19/18 22:19 Pregabalin (Lyrica) 150 mg PO BID [facility] Stop: 07/20/18 08:59 Last Admin: 05/24/18 09:18 Dose: 150 mg General: Alert, No acute distress HEENT: Atraumatic Neck: Supple Cardiovascular: Regular rate Lungs: Clear to auscultation Abdomen: Bowel sounds, Soft, Other (COLOSTOMY), no Tender, no Distended Assessment/Plan - Assessment Assessment: IMPRESSION: 1. ABD PAIN DUE TO CONSTIPATION, NOW IMPROVED. 2. COLONOSCOPY VIA STOMA AND FLEX SIG VIA RECTUM ESSENTIALLY NEG. 3. PVD S/P B AKA. 4. BLINDNESS. 5. HX COLOSTOMY FOR DECUB ULCER. RECS: 1. MAALOX. 2. STOOL SOFTENERS. 3. DIET ANURAG. 4. COLOSTOMY CARE. 5. GI BALLESTEROS STABLE.
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
[2018-05-24] MEDS: cefTRIAXone 1 GM in Sodium Chloride 0.9% 50 ML IV SCH (23:12)
[2018-05-25] MEDS: HYDROmorphone 1 mg/mL 1mL Syr IVP PRN ×5 (03:55→16:31)
[2018-05-25] MEDS: INSULIN ASPART SLIDING SCALE 100 UNITS/ML UNIT SUBQ SCH ×2 (07:58→11:59)
[2018-05-25] MEDS: Multivitamin w/ Minerals Tab PO SCH (09:30)
[2018-05-25] MEDS: Aspirin 81mg Chewable Tab PO SCH (09:30)
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
[2018-05-25] MEDS ORDERED: Probiotic Screen MC PRN (12:40)
[2018-05-25] MEDS ORDERED: Lactobacillus Rhamnosus GG 15 Billion CFU CAP.SPRINK PO SCH (13:00)
--- NOTE | 2018-05-25 14:30 | GI Progress Note ---
Subjective - Review of Systems Subjective: NO EVENTS Objective - Results Result Diagrams: 05/23/18 11:08 05/23/18 11:08 Recent Labs: Laboratory Last Values WBC 8.4 Th/cmm (4.8-10.8) 05/23/18 11:08 RBC 5.68 Mil/cmm (4.30-5.70) 05/23/18 11:08 Hgb 16.7 gm/dL (12-16) 05/23/18 11:08 Hct 49.8 % (41.0-60) 05/23/18 11:08 MCV 87.8 fl (80-99) 05/23/18 11:08 MCH 29.5 pg (26.0-30.0) 05/23/18 11:08 MCHC Differential 33.6 pg (28.0-36.0) 05/23/18 11:08 RDW 13.7 % (11.5-20.0) 05/23/18 11:08 Plt Count 232 Th/cmm (150-400) 05/23/18 11:08 MPV 8.1 fl 05/23/18 11:08 Neutrophils % 76.5 % (40.0-80.0) 05/23/18 11:08 Lymphocytes % 12.6 % (20.0-50.0) L 05/23/18 11:08 Monocytes % 6.3 % (2.0-10.0) 05/23/18 11:08 Eosinophils % 4.3 % (0.0-5.0) 05/23/18 11:08 Basophils % 0.3 % (0.0-2.0) 05/23/18 11:08 PT 10.3 SECONDS (9.5-11.5) 05/22/18 06:26 INR 0.99 (0.5-1.4) 05/22/18 06:26 Sodium 134 mEq/L (136-145) L 05/23/18 11:08 Potassium 4.0 mEq/L (3.5-5.1) 05/23/18 11:08 Chloride 100 mEq/L (98-107) 05/23/18 11:08 Carbon Dioxide 29.1 mEq/L (21.0-31.0) 05/23/18 11:08 Anion Gap 8.9 (7.0-16.0) 05/23/18 11:08 BUN 6 mg/dL (7-25) L 05/23/18 11:08 Creatinine 0.6 mg/dL (0.7-1.3) L 05/23/18 11:08 Est GFR ( Amer) > 60.0 ml/min (>90) 05/23/18 11:08 Est GFR (Non-Af Amer) > 60.0 ml/min 05/23/18 11:08 BUN/Creatinine Ratio 10.0 05/23/18 11:08 Glucose 224 mg/dL (70-105) H 05/23/18 11:08 POC Glucose 131 MG/DL (70 - 105) H 05/25/18 11:50 Hemoglobin A1c % 7.2 % (4.0-6.0) H 05/20/18 20:04 Calcium 8.8 mg/dL (8.6-10.3) 05/23/18 11:08 Total Bilirubin 0.4 mg/dL (0.3-1.0) 05/23/18 11:08 AST 17 U/L (13-39) 05/23/18 11:08 ALT 10 U/L (7-52) 05/23/18 11:08 Alkaline Phosphatase 72 U/L (34-104) 05/23/18 11:08 Creatine Kinase 127 U/L (30-223) 05/20/18 20:04 Troponin I 0.06 ng/mL (0.01-0.05) H 05/20/18 20:04 B-Natriuretic Peptide 116.0 pg/mL (5.0-100.0) H 05/20/18 20:04 Total Protein 6.7 gm/dL (6.0-8.3) 05/23/18 11:08 Albumin 3.8 gm/dL (4.2-5.5) L 05/23/18 11:08 Globulin 2.9 gm/dL 05/23/18 11:08 Albumin/Globulin Ratio 1.3 (1.0-1.8) 05/23/18 11:08 Triglycerides 144 mg/dL (<150) 05/20/18 20:04 Cholesterol 158 mg/dL (<200) 05/20/18 20:04 LDL Cholesterol Direct 105 mg/dL (75-193) 05/20/18 20:04 HDL Cholesterol 39 mg/dL (23-92) 05/20/18 20:04 Amylase 30 U/L (29-103) 05/20/18 20:04 Lipase 14 U/L (11-82) 05/20/18 20:04 Urine Source CLEAN C 05/21/18 06:10 Urine Color YELLOW 05/21/18 06:10 Urine Clarity CLOUDY (CLEAR) 05/21/18 06:10 Urine pH 6.0 (4.6 - 8.0) 05/21/18 06:10 Ur Specific [place] 1.020 (1.005-1.030) 05/21/18 06:10 Urine Protein 100 mg/dL (NEGATIVE) H 05/21/18 06:10 Urine Glucose (UA) NEGATIVE mg/dL (NEGATIVE) 05/21/18 06:10 Urine Ketones NEGATIVE mg/dL (NEGATIVE) 05/21/18 06:10 Urine Blood MODERATE (NEGATIVE) H 05/21/18 06:10 Urine Nitrate NEGATIVE (NEGATIVE) 05/21/18 06:10 Urine Bilirubin NEGATIVE (NEGATIVE) 05/21/18 06:10 Urine Urobilinogen 0.2 E.U./dL (0.2 - 1.0) 05/21/18 06:10 Ur Leukocyte Esterase LARGE (NEGATIVE) H 05/21/18 06:10 Urine RBC 2-5 /hpf (0-5) H 05/21/18 06:10 Urine WBC >100 /hpf (0-5) H 05/21/18 06:10 Ur Epithelial Cells MODERATE /lpf (FEW) 05/21/18 06:10 Urine Bacteria 4+ /hpf (NONE SEEN) H 05/21/18 06:10 Urine Sperm MODERATE /hpf (NONE SEEN) 05/21/18 06:10 Blood Type O NEGATIVE 05/22/18 08:16 Antibody Screen NEGATIVE 05/22/18 08:16 - Physical Exam Vitals and I&O: Vital Signs Temp 97.8 F 05/25/18 12:00 Pulse 72 05/25/18 12:00 Resp 18 05/25/18 12:00 BP 147/96 05/25/18 12:00 Pulse Ox 98 05/25/18 12:00 Intake & Output 05/24/18 05/25/18 05/25/18 18:59 06:59 18:59 Intake Total 1600 Output Total 1000 Balance 600 Weight (lbs) 78.608 kg 78.471 kg Intake: Intake, IV Amount 1000 Sodium Chloride 0.45% 1, 1000 000 ml @ 75 mls/hr IV . [id number] [facility] Rx#:[id number] Oral 600 Output: Urine 1000 Other: # Voids 2 # Bowel Movements 0 Stool Characteristics Liquid Liquid Brown Brown Weight Source Bedscale Bedscale Active Medications: Current Medications Acetaminophen (Tylenol) 650 mg PO Q4HR PRN PRN Reason: FEVER TEMP >101, AND MILD PAIN Stop: 07/19/18 21:22 Al Hydrox/Mg Hydrox/Simethicone (Maalox) 30 ml PO Q4HR PRN PRN Reason: Abdominal Pain Stop: 07/22/18 15:13 Last Admin: 05/23/18 16:18 Dose: 30 ml Amitriptyline HCl (Elavil) 50 mg PO HS [facility] Stop: 07/20/18 20:59 Last Admin: 05/24/18 20:14 Dose: 50 mg Ascorbic Acid (Vitamin C) 500 mg PO DAILY [facility] Stop: 07/20/18 08:59 Last Admin: 05/25/18 09:30 Dose: 500 mg Aspirin (Aspirin Chewable) 81 mg PO DAILY [facility] Stop: 07/20/18 08:59 Last Admin: 05/25/18 09:30 Dose: 81 mg Baclofen (Lioresal) 10 mg PO Q8H [facility] Stop: 07/19/18 20:59 Last Admin: 05/25/18 12:28 Dose: 10 mg Cholecalciferol (Vitamin D3) 1,000 iu PO DAILY [facility] Stop: 07/20/18 08:59 Last Admin: 05/25/18 09:30 Dose: 1,000 iu Docusate Sodium (Colace) 100 mg PO DAILY [facility] Stop: 07/20/18 08:59 Last Admin: 05/25/18 09:39 Dose: Not Given Hydromorphone HCl (Dilaudid) 3 mg IM Q6H PRN PRN Reason: Pain (Severe) Stop: 07/19/18 21:22 Last Admin: 05/22/18 08:20 Dose: 3 mg Hydromorphone HCl (Dilaudid) 1 mg IVP Q4HR PRN PRN Reason: For moderate pain Stop: 07/19/18 22:18 Hydromorphone HCl (Dilaudid) 2 mg IVP Q3HR PRN PRN Reason: For severe pain Stop: 07/19/18 22:15 Last Admin: 05/25/18 13:24 Dose: 2 mg Sodium Chloride (Nacl 0.45%) 1,000 mls @ 75 mls/hr IV .[id number] [facility] Stop: 07/19/18 22:14 Last Admin: 05/24/18 23:22 Dose: 75 mls/hr Ceftriaxone Sodium 1 gm/ (Sodium Chloride) 50 mls @ 100 mls/hr IV Q24HR [facility] Stop: 07/19/18 22:59 Last Admin: 05/24/18 23:12 Dose: 100 mls/hr Insulin Aspart (Novolog Insulin Sliding Scale) 0 units SUBQ ACHS [facility]; Protocol Stop: 07/20/18 07:29 Last Admin: 05/25/18 11:59 Dose: Not Given Lactobacillus Rhamnosus (Culturelle 15b) 1 each PO DAILY [facility] Stop: 07/24/18 12:59 Last Admin: 05/25/18 14:00 Dose: 1 each Lisinopril (Zestril) 10 mg PO DAILY [facility] Stop: 07/20/18 08:59 Last Admin: 05/25/18 09:30 Dose: 10 mg Magnesium Hydroxide (Milk Of Magnesia) 30 ml PO Q24H PRN PRN Reason: Constipation Stop: 07/19/18 21:22 Miscellaneous (Duloxetine Hcl [Cymbalta]) 20 mg PO DAILY [facility] Stop: 07/20/18 08:59 Miscellaneous (Probiotic Screen) 1 ea MC PRN PRN PRN Reason: PROTOCOL Stop: 07/24/18 12:39 Ondansetron HCl (Zofran) 4 mg IV Q6H PRN PRN Reason: Nausea / Vomiting Stop: 07/19/18 22:19 Pregabalin (Lyrica) 150 mg PO BID [facility] Stop: 07/20/18 08:59 Last Admin: 05/25/18 09:39 Dose: 150 mg General: Alert, No acute distress HEENT: Atraumatic Neck: Supple Cardiovascular: Regular rate Lungs: Clear to auscultation Abdomen: Bowel sounds, Soft, Other (COLOSTOMY), no Tender, no Distended Assessment/Plan - Problem List Patient Problems: All Active Problems Abdominal pain (Acute) R10.9 Blindness (Acute) H54.7 - Assessment Assessment: 57 YO MALE WITH CONSTIPATION NOW IMPROVING COLONOSCOPY VIA STOMA AND FLEX SIG VIA RECTUM ESSENTIALLY NEG. HX OF COLOSTOMY FOR DECUB ULCER. 1. STOOL SOFTENERS. 2. DIET ANURAG. 3. COLOSTOMY CARE. 4. WILL SEE NEEDED; CALL IF QUESTIONS.
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
== END 2018-05-25 17:00 | DRG 393 ==
LOC: ER 19:40 → MSI 20:40 → TELE 22:02 → MSI 05-22 11:56
PROVIDERS: ADMIT Internal Medicine; ATTEND Internal Medicine
PROC: 0DJD8ZZ Inspection of Lower Intestinal Tract, Via Natural or Artificial Opening Endoscopic (ICD-10-PCS; principal; 2018-05-22)
DX: K64.8 Other hemorrhoids (principal); R65.11 Systemic inflammatory response syndrome (SIRS) of non-infectious origin with acute organ dysfunction; N39.0 Urinary tract infection, site not specified; K59.00 Constipation, unspecified; D72.829 Elevated white blood cell count, unspecified; E11.9 Type 2 diabetes mellitus without complications; I10 Essential (primary) hypertension; J44.9 Chronic obstructive pulmonary disease, unspecified; H54.8 Legal blindness, as defined in USA; F41.9 Anxiety disorder, unspecified; E66.9 Obesity, unspecified; F25.9 Schizoaffective disorder, unspecified; M19.90 Unspecified osteoarthritis, unspecified site; F32.9 Major depressive disorder, single episode, unspecified; L89.159 Pressure ulcer of sacral region, unspecified stage; E78.5 Hyperlipidemia, unspecified; Z89.612 Acquired absence of left leg above knee; Z89.611 Acquired absence of right leg above knee; Z83.3 Family history of diabetes mellitus; Z82.49 Family history of ischemic heart disease and other diseases of the circulatory system; Z88.8 Allergy status to other drugs, medicaments and biological substances; Z91.018 Allergy to other foods; Z93.3 Colostomy status; Z68.26 Body mass index [BMI] 26.0-26.9, adult
CPT/HCPCS: 36415-UA; 71045-TC; 74000-TC; 80048-TC; 80053-TC; 80061-TC; 81001-TC; 82150-TC; 82550-TC; 82948-90; 83036-90; 83690-TC; 83880-TC; 84484-TC; 85025-TC; 85610-TC; 86850-TC; 86900-TC; 86901-TC; 87086-90; 93005; 94760; 96375; J0696; J1170; J1815; J1956; J2405; J2704; J7030; Z7610

== ENCOUNTER 2018-07-24 23:20 | Inpatient (IN) | payer MEDICARE, MEDICAID ==
[2018-07-24] MEDS ORDERED: Lactated Ringer 1,000 ML IV ONE (23:26)
[2018-07-25 00:03] LABS: % EOSINOPHILS 2.5 % (0.0-5.0); % LYMPHOCYTES 11.6 % (20.0-50.0); % MONOCYTES 8.9 % (2.0-10.0); EOSINOPHILE ABSOLUTE 0.4 Th/cmm (0.1-0.4); HEMATOCRIT 45.4 % (41.0-60); LYMPHOCYTE ABSOLUTE 1.8 Th/cmm (1.5-3.0); MEAN CELL VOLUME 86.9 fl (80-99); MEAN CORPUSCULAR HEMOGLOBIN 28.7 pg (26.0-30.0); MEAN PLATELET VOLUME 7.9 fl; MONOCYTE ABSOLUTE 1.4 Th/cmm (0.3-1.0); NEUTROPHILE ABSOLUTE 11.7 Th/cmm (1.8-8.0); PLATELET COUNT 278 Th/cmm (150-400); RED BLOOD COUNT 5.23 Mil/cmm (4.30-5.70)
[2018-07-25 00:07] LABS: WHITE BLOOD COUNT 15.3 Th/cmm (4.8-10.8)
[2018-07-25 00:20] LABS: INR 0.92 (0.5-1.4); PROTHROMBIN TIME (TEST) 9.6 SECONDS (9.5-11.5)
[2018-07-25 00:22] LABS: ALB/GLOB RATIO 1.2 (1.0-1.8); ALBUMIN 3.2 gm/dL (4.2-5.5); ALKALINE PHOSPHATASE 55 U/L (34-104); AMYLASE SERUM 16 U/L (29-103); ANION GAP 10.1 (7.0-16.0); BILIRUBIN,TOTAL 0.2 mg/dL (0.3-1.0); BUN - UREA NITROGEN 22 mg/dL (7-25); CALCIUM SERUM 9.5 mg/dL (8.6-10.3); CHLORIDE 102 mEq/L (98-107); CREATININE - SERUM 0.7 mg/dL (0.7-1.3); GFR AFRICAN-AMERICAN > 60.0 ml/min (>90); GFR NON AFRICAN-AMERICAN > 60.0 ml/min; GLUCOSE 232 mg/dL (70-105); LIPASE 10 U/L (11-82); POTASSIUM SERUM 4.1 mEq/L (3.5-5.1); SGOT 20 U/L (13-39); SGPT/ALT 13 U/L (7-52); SODIUM SERUM 132 mEq/L (136-145); TOTAL PROTEIN,SERUM 5.8 gm/dL (6.0-8.3)
--- NOTE | 2018-07-25 01:48 | ED Physician Chart ---
ED Chief Complaint/HPI - Patient Information Date Seen:: 07/24/18 Time Seen:: 23:57 Chief Complaint:: blood through ostomy History of Present Illness:: blood through ostomy Allergies:: Allergies Allergy/AdvReac Type Severity Reaction Status Date / Time permethrin [From Elimite] Allergy Verified 05/20/18 20:22 mushroom AdvReac Verified 05/20/18 20:22 strawberry AdvReac Verified 05/20/18 20:22 Vitals:: Vital Signs - 8 hr 07/24/18 23:57 Temp 98.1 F HR 108 RR 16 BP 90/64 O2 Sat % 95 Historian:: Patient, Medical Records Review:: Nurse's Note Reviewed, Transfer documents Reviewed ED Review of Systems - Review of Systems General/Constitutional: No fever, No chills, No weight loss, No weakness, No diaphoresis, No edema, No loss of appetite Skin: No skin lesions, No rash, No bruising Head: No headache, No light-headedness Eyes: No loss of vision, No pain, No diplopia ENT: No earache, No nasal drainage, No sore throat, No tinnitus Neck: No neck pain, No swelling, No thyromegaly, No stiffness, No mass noted Cardio Vascular: No chest pain, No palpitations, No PND, No orthopnea, No edema Pulmonary: No SOB, No cough, No sputum, No wheezing GI: Other (blood through ostomy) G/U: No dysuria, No frequency, No hematuria Musculoskeletal: No bone or joint pain, No back pain, No muscle pain Endocrine: No polyuria, No polydipsia Psychiatric: No prior psych history, No depression, No anxiety, No suicidal ideation Hematopoietic: No bruising, No lymphadenopathy Allergic/Immuno: No urticaria, No angioedema Neurological: No syncope, No focal symptoms, No weakness, No paresthesia, No headache, No seizure, No dizziness, No confusion, No vertigo ED Past Medical History - Past Medical History Obtainable: Yes Past Medical History: DM, Other (GI bleed. blood through ostomy; bilateral AKA) Family Medical History - Family Member Mother History Unknown: Yes Living Status: Hx Family COPD: Yes ED Physical Exam - Physical Examination General/Constitutional: Awake, Well-developed, well-nourished, Alert, GCS 15, Non-toxic appearing, Ambulatory Other Gen/Cons comments:: warm to the touch Head: Atraumatic Eyes: Lids, conjuctiva normal, PERRL, EOMI Skin: Nl inspection, No rash, No skin lesions, No ecchymosis, Well hydrated, No lymphadenopathy ENMT: External ears, nose nl Neck: Nontender, Full ROM w/o pain, No JVD, No nuchal rigidity, No bruit, No mass, No stridor Respiratory: Nl effort/Exclusion, Clear to Auscultation, No Wheeze/Rhonchi/Rales Cardio Vascular: RRR, No murmur, gallop, rubs, NL S1 S2 GI: No tenderness/rebounding/guarding, No organomegaly, No hernia, Normal BS's, Nondistended, No mass/bruits, No McBurney tenderness : No CVA tenderness Other Extremities comments:: bilateral AKA Neuro/Psych: Alert/oriented, Judgement/insight normal, Mood normal ED Labs/Radiology/EKG Results - Lab Results Results: Laboratory Tests 07/24/18 07/24/18 07/24/18 23:55 23:55 23:55 WBC 15.3 H RBC 5.23 Hgb 15.0 Hct 45.4 MCV 86.9 MCH 28.7 MCHC Differential 33.0 RDW 15.0 Plt Count 278 MPV 7.9 Neutrophils % 77.0 Lymphocytes % 11.6 L Monocytes % 8.9 Eosinophils % 2.5 Basophils % 0.0 PT 9.6 INR 0.92 PTT (Actin FS) 29.6 Sodium 132 L Potassium 4.1 Chloride 102 Carbon Dioxide 24.0 Anion Gap 10.1 BUN 22 Creatinine 0.7 Est GFR ( Amer) > 60.0 Est GFR (Non-Af Amer) > 60.0 BUN/Creatinine Ratio 31.4 Glucose 232 H Whole Bld Lactic Acid Calcium 9.5 Total Bilirubin 0.2 L AST 20 ALT 13 Alkaline Phosphatase 55 Total Protein 5.8 L Albumin 3.2 L Globulin 2.6 Albumin/Globulin Ratio 1.2 Amylase 16 L Lipase 10 L 07/25/18 00:00 WBC RBC Hgb Hct MCV MCH MCHC Differential RDW Plt Count MPV Neutrophils % Lymphocytes % Monocytes % Eosinophils % Basophils % PT INR PTT (Actin FS) Sodium Potassium Chloride Carbon Dioxide Anion Gap BUN Creatinine Est GFR ( Amer) Est GFR (Non-Af Amer) BUN/Creatinine Ratio Glucose Whole Bld Lactic Acid 1.00 Calcium Total Bilirubin AST ALT Alkaline Phosphatase Total Protein Albumin Globulin Albumin/Globulin Ratio Amylase Lipase ED Assessment - Assessment General Assessment: called Dr. Kraft to admit this patient at 1:47 a.m. ED Septic Shock - . Is Septic Shock (SBP<90, OR Lactate>4 mmol\L) present?: No - <6hrs of presentation: Vital Signs: Vital Signs - 8 hr 07/24/18 23:57 Temp 98.1 F HR 108 RR 16 BP 90/64 O2 Sat % 95 ED Reassessment (Disposition) - Reassessment Reassessment Condition:: Improved - Diagnosis Diagnosis:: GI bleed through ostomy Leukocytosis Diabetes mellitus Bilateral AKA - Patient Disposition Discharge/Transfer:: Acute Care w/in this hosp Admitted to:: Med/Surg Condition at Disposition:: Stable, Improved
[2018-07-25] MEDS: HYDROmorphone 2 mg/mL 1mL Vial IVP PRN ×5 (03:02→19:51)
[2018-07-25] MEDS: D5-0.45NS 1,000 ML IV SCH (03:48)
[2018-07-25 06:33] VITALS: BP 110/71
[2018-07-25 06:53] LABS: % BASOPHILS 0.1 % (0.0-2.0); % EOSINOPHILS 2.9 % (0.0-5.0); % LYMPHOCYTES 16.2 % (20.0-50.0); % MONOCYTES 10.5 % (2.0-10.0); % NEUTROPHILS 70.3 % (40.0-80.0); EOSINOPHILE ABSOLUTE 0.3 Th/cmm (0.1-0.4); HEMATOCRIT 43.9 % (41.0-60); HEMOGLOBIN 14.6 gm/dL (12-16); LYMPHOCYTE ABSOLUTE 1.8 Th/cmm (1.5-3.0); MEAN CELL VOLUME 86.5 fl (80-99); MEAN CORPUSCULAR HEMOGLOBIN 28.8 pg (26.0-30.0); MEAN CORPUSCULAR HGB CONC 33.3 pg (28.0-36.0); MEAN PLATELET VOLUME 8.4 fl; MONOCYTE ABSOLUTE 1.2 Th/cmm (0.3-1.0); PLATELET COUNT 248 Th/cmm (150-400); RED BLOOD COUNT 5.07 Mil/cmm (4.30-5.70); RED CELL DISTRIBUTION WIDTH 14.5 % (11.5-20.0); WHITE BLOOD COUNT 11.3 Th/cmm (4.8-10.8)
[2018-07-25 07:21] LABS: ANION GAP 11.7 (7.0-16.0); BUN - UREA NITROGEN 16 mg/dL (7-25); CALCIUM SERUM 9.2 mg/dL (8.6-10.3); CARBON DIOXIDE 24.6 mEq/L (21.0-31.0); CHLORIDE 106 mEq/L (98-107); CREATININE - SERUM 0.6 mg/dL (0.7-1.3); GFR AFRICAN-AMERICAN > 60.0 ml/min (>90); GFR NON AFRICAN-AMERICAN > 60.0 ml/min; GLUCOSE 176 mg/dL (70-105); POTASSIUM SERUM 4.3 mEq/L (3.5-5.1); SODIUM SERUM 138 mEq/L (136-145)
[2018-07-25] MEDS ORDERED: Maalox 30 mL Cup PO PRN (09:02)
[2018-07-25] MEDS ORDERED: Acetaminophen 500 MG TAB PO PRN (09:02)
[2018-07-25] MEDS: Aspirin 81mg Chewable Tab PO SCH (09:38)
[2018-07-25] MEDS: Multivitamin w/ Minerals Tab PO SCH (09:39)
[2018-07-25] MEDS: Vitamin D3 2,000 IU SGL PO SCH (09:39)
[2018-07-25] MEDS: INSULIN ASPART SLIDING SCALE 100 UNITS/ML UNIT SUBQ SCH ×3 (11:45→20:54)
[2018-07-25 15:51] LABS: URINE SOURCE CLEAN C
[2018-07-25 15:52] LABS: URINE BILIRUBIN NEGATIVE (NEGATIVE); URINE BLOOD TRACE (NEGATIVE); URINE GLUCOSE (UA) NEGATIVE (NEGATIVE); URINE KETONE NEGATIVE (NEGATIVE); URINE LEUKOCYTE ESTERASE LARGE (NEGATIVE); URINE MICROSCOPIC INDICATED? YES; URINE NITRATE NEGATIVE (NEGATIVE); URINE PROTEIN 30 mg/dL (NEGATIVE); URINE UROBILINOGEN 0.2 E.U./dL (0.2 - 1.0)
[2018-07-25 15:58] LABS: URINE CLARITY CLOUDY (CLEAR); URINE COLOR YELLOW
[2018-07-25 16:00] LABS: URINE EPITHELIAL CELLS OCCASIONAL /lpf (FEW); URINE WBC 50-100 /hpf (0-5)
[2018-07-25 16:01] LABS: URINE BACTERIA MODERATE /hpf (NONE SEEN)
--- NOTE | 2018-07-25 18:13 | History & Physical ---
ADMIT DATE: 07/25/2018 CHIEF COMPLAINT: Blood in the ostomy. HISTORY OF PRESENT ILLNESS: This is a 57-year-old male who was admitted from senior living facility to the Emergency Room in [facility] due to blood in the ostomy. REVIEW OF SYSTEMS: GENERAL: This is a 57-year-old male that appears as stated. Denies any fever. Denies weakness. HEAD: Denies headache. Denies dizziness. EYES: Positive poor vision. Denies any eye pain. NECK: Denies neck pain. Denies nuchal rigidity. CHEST: Denies chest pain. Denies palpitation. PULMONARY: Denies coughing. Denies shortness of breath. GASTROINTESTINAL: Positive for colostomy tube in the left lower quadrant. Denies any abdominal pain. Denies constipation. Denies diarrhea. Positive blood in the ostomy. MUSCULOSKELETAL: Positive bilateral above-knee amputation denies muscle pain. Denies joint pain. SOCIAL HISTORY: The patient lives in a senior living facility prior to hospitalization. PAST SURGICAL HISTORY: Includes bilateral above-knee amputation. Colostomy in left lower quadrant. FAMILY HISTORY: Unremarkable. PAST MEDICAL HISTORY: Includes hypertension, diabetes, chronic pain syndrome. FAMILY HISTORY: Unremarkable. PHYSICAL EXAMINATION: VITAL SIGNS: Temperature 97.6, heart rate of 84, blood pressure 132/80, respirations 20, 94% on room air. GENERAL: This is a 57-year-old male that appears as stated in no acute distress. HEENT: Head is atraumatic, normocephalic. Eyes, bilateral conjunctivae are clear. Bilateral pupils are equally round and reactive. NECK: Supple. No JVD. CARDIOVASCULAR: S1 and S2, without murmur. PULMONARY: Clear to auscultation. GASTROINTESTINAL: Soft and nontender without guarding. Positive bowel sounds. MUSCULOSKELETAL: No clubbing. No cyanosis. The patient has bilateral above-knee amputation. ASSESSMENT: 1. Gastrointestinal bleed. 2. Hypertension. 3. Diabetes. 4. Chronic pain syndrome. PLAN: We will keep the patient n.p.o. We will do medication reconciliation accordingly. We will follow up with a tube former operator. Treatment plans were discussed with the patient's nurse. Treatment plans were discussed with Dr. Kraft. JOB# [id number]
--- NOTE | 2018-07-25 19:55 | Consultation ---
DATE OF CONSULTATION: 07/25/2018 REASON FOR CONSULTATION: GI bleed and abdominal pain. HISTORY OF PRESENT ILLNESS: This consult was obtained through the courtesy of Dr. Kraft for this 57-year-old blind, status post bilateral above-knee amputation, status post diverting colostomy, presenting to the hospital because of abdominal pain and bleeding from the colostomy bag. The patient apparently had a diverting colostomy 5 years ago. There was an intention to reverse it in his opinion, he did not do its focus meaning he still has the decubitus ulcers. The patient is blind because of diabetes. He also had bilateral above knee amputation because of diabetes. He was admitted because the [facility], they found some blood in the colostomy bag and he is always complaining of abdominal pain, so he was sent here for further management. The patient complains of lower abdominal pain, bilateral and he still pooping from his rectum, which is very concerning for him because he said that should not have happened. Of course, he is not aware of bleeding since he is blind. PAST MEDICAL HISTORY: Diabetes, hypertension, hyperlipidemia, peripheral vascular disease. PAST SURGICAL HISTORY: Had diverting colostomy, has bilateral above knee amputation. SOCIAL HISTORY: The patient is a smoker. Smokes 2 packs a day. Denies alcohol. He has ex-drug abuser, both nasally and intravenously. FAMILY HISTORY: Father had colon cancer and of note, his last colonoscopy was this year a couple of months ago. REVIEW OF SYSTEMS: Denies weight loss. Denies nausea, vomiting. Complains of abdominal pain. ALLERGIES: ____ MUSHROOMS, STRAWBERRY. MEDICATIONS: The patient is on Tylenol, Maalox, Elavil, vitamin C, aspirin, baclofen, Colace, Cymbalta, Dilaudid, NovoLog, lactobacillus, lisinopril, Zofran, Lyrica, vitamin D3. PHYSICAL EXAMINATION: GENERAL: The patient is awake, oriented to self and place and time, in no acute distress. VITAL SIGNS: Blood pressure is 132/80, heart rate 84, respiratory rate 20, and temperature 97.6. HEAD AND NECK: Pupils could not be tested. The patient is blind. Oral cavity, no lesion. NECK: Supple, no jugular venous distention, no carotid lymph node. CHEST: Good respiratory movements. LUNGS: Clear to auscultation. CARDIOVASCULAR: Regular rate and rhythm. No murmur or gallop. ABDOMEN: There is a colostomy bag in the left lower quadrant. Colostomy bag showed a brown liquid stools might have some brownish tinge brown hue to it, but no inga bleeding. EXTREMITIES: Lower extremities on the right side. It is at the hip just below the hip amputation on the left side is above knee amputation. CENTRAL NERVOUS SYSTEM: The patient is moving upper extremities without a problem. LABORATORY DATA: White count 11.3 with 15.3 on presentation. The rest of CBC is unremarkable including H and H, MCV and RDW. PT was normal. Chemistry showed normal liver enzymes. Albumin is 3.2. The patient did not have any x-ray at this time, but last admission, he had stools in the colon, then he had a colonoscopy, which showed some stool, but no lesion up to the cecum. IMPRESSION: A 57-year-old with diverting colostomy, now with gastrointestinal bleed and abdominal pain. PLAN: Gastrointestinal bleed most probably it is a trivial bleeding given the stable hemoglobin over 2 days, but we will continue to monitor. The patient had a colonoscopy last admission, it was not optimal, but it was not poor quality either, so at this time, we will monitor his H and H. If there is inga bleeding or significant drop of hemoglobin, then we will repeat the colonoscopy and at that time even consider endoscopy if remains stable, we will continue current management. Meanwhile, we will resume his feeding and watch him problem to his abdominal pain, most probably related to constipation. We will give the patient some mineral oil on daily basis and see how he is doing, even though what is coming out as liquid stools, so we will watch it for a day and then if there is some probable will start the mineral oil. Also, the pain could be related to the previous surgery. He is on Dilaudid. He is getting Elavil at bedtime, so we will watch him for now and then further recommendations to follow. Other medical problems such as diabetes, hypertension, hyperlipidemia, peripheral vascular disease, decubitus ulcer, etc., as per Dr. Kraft. Thank you, Dr. Kraft for allowing me to participate in the care of Servando If you have any further questions, please let me know. JOB# [id number]
[2018-07-25] MEDS: Levofloxacin 500mg/100mL 500 MG/100 ML BAG IV SCH (20:45)
[2018-07-26] MEDS: HYDROmorphone 2 mg/mL 1mL Vial IVP PRN ×6 (00:14→20:20)
[2018-07-26 05:41] LABS: % BASOPHILS 1.9 % (0.0-2.0); % EOSINOPHILS 5.7 % (0.0-5.0); % LYMPHOCYTES 16.1 % (20.0-50.0); % MONOCYTES 9.2 % (2.0-10.0); % NEUTROPHILS 67.1 % (40.0-80.0); BASOPHILE ABSOLUTE 0.2 Th/cumm (0-0.2); EOSINOPHILE ABSOLUTE 0.6 Th/cmm (0.1-0.4); HEMATOCRIT 45.7 % (41.0-60); HEMOGLOBIN 15.1 gm/dL (12-16); LYMPHOCYTE ABSOLUTE 1.6 Th/cmm (1.5-3.0); MEAN CELL VOLUME 87.1 fl (80-99); MEAN CORPUSCULAR HEMOGLOBIN 28.7 pg (26.0-30.0); MEAN PLATELET VOLUME 7.7 fl; MONOCYTE ABSOLUTE 0.9 Th/cmm (0.3-1.0); NEUTROPHILE ABSOLUTE 6.6 Th/cmm (1.8-8.0); PLATELET COUNT 237 Th/cmm (150-400); RED BLOOD COUNT 5.25 Mil/cmm (4.30-5.70); RED CELL DISTRIBUTION WIDTH 14.8 % (11.5-20.0); WHITE BLOOD COUNT 9.9 Th/cmm (4.8-10.8)
[2018-07-26 05:55] LABS: ALB/GLOB RATIO 1.1 (1.0-1.8); ALBUMIN 3.1 gm/dL (4.2-5.5); ALKALINE PHOSPHATASE 59 U/L (34-104); BILIRUBIN,TOTAL 0.4 mg/dL (0.3-1.0); BUN - UREA NITROGEN 10 mg/dL (7-25); CALCIUM SERUM 9.1 mg/dL (8.6-10.3); CARBON DIOXIDE 23.8 mEq/L (21.0-31.0); CHLORIDE 104 mEq/L (98-107); CREATININE - SERUM 0.6 mg/dL (0.7-1.3); GFR AFRICAN-AMERICAN > 60.0 ml/min (>90); GFR NON AFRICAN-AMERICAN > 60.0 ml/min; GLUCOSE 146 mg/dL (70-105); POTASSIUM SERUM 3.8 mEq/L (3.5-5.1); SGOT 15 U/L (13-39); SGPT/ALT 11 U/L (7-52); SODIUM SERUM 134 mEq/L (136-145)
[2018-07-26] MEDS: INSULIN ASPART SLIDING SCALE 100 UNITS/ML UNIT SUBQ SCH ×4 (06:30→20:26)
[2018-07-26] MEDS: Vitamin D3 2,000 IU SGL PO SCH (08:23)
[2018-07-26] MEDS: Aspirin 81mg Chewable Tab PO SCH (08:23)
[2018-07-26] MEDS: Multivitamin w/ Minerals Tab PO SCH (08:23)
[2018-07-26] MEDS: Lactobacillus Rhamnosus GG 15 Billion CFU CAP.SPRINK PO SCH (08:23)
--- NOTE | 2018-07-26 09:49 | General Progress Note ---
Subjective - Review of Systems Events since last encounter: patient with blood in ostomy resident of [facility] Objective - Results Result Diagrams: 07/26/18 05:30 07/26/18 05:30 Recent Labs: Laboratory Last Values WBC 9.9 Th/cmm (4.8-10.8) 07/26/18 05:30 RBC 5.25 Mil/cmm (4.30-5.70) 07/26/18 05:30 Hgb 15.1 gm/dL (12-16) 07/26/18 05:30 Hct 45.7 % (41.0-60) 07/26/18 05:30 MCV 87.1 fl (80-99) 07/26/18 05:30 MCH 28.7 pg (26.0-30.0) 07/26/18 05:30 MCHC Differential 33.0 pg (28.0-36.0) 07/26/18 05:30 RDW 14.8 % (11.5-20.0) 07/26/18 05:30 Plt Count 237 Th/cmm (150-400) 07/26/18 05:30 MPV 7.7 fl 07/26/18 05:30 Neutrophils % 67.1 % (40.0-80.0) 07/26/18 05:30 Lymphocytes % 16.1 % (20.0-50.0) L 07/26/18 05:30 Monocytes % 9.2 % (2.0-10.0) 07/26/18 05:30 Eosinophils % 5.7 % (0.0-5.0) H 07/26/18 05:30 Basophils % 1.9 % (0.0-2.0) 07/26/18 05:30 PT 9.6 SECONDS (9.5-11.5) 07/24/18 23:55 INR 0.92 (0.5-1.4) 07/24/18 23:55 PTT (Actin FS) 29.6 SECONDS (26.0-38.0) 07/24/18 23:55 Sodium 134 mEq/L (136-145) L 07/26/18 05:30 Potassium 3.8 mEq/L (3.5-5.1) 07/26/18 05:30 Chloride 104 mEq/L (98-107) 07/26/18 05:30 Carbon Dioxide 23.8 mEq/L (21.0-31.0) 07/26/18 05:30 Anion Gap 10.0 (7.0-16.0) 07/26/18 05:30 BUN 10 mg/dL (7-25) 07/26/18 05:30 Creatinine 0.6 mg/dL (0.7-1.3) L 07/26/18 05:30 Est GFR ( Amer) > 60.0 ml/min (>90) 07/26/18 05:30 Est GFR (Non-Af Amer) > 60.0 ml/min 07/26/18 05:30 BUN/Creatinine Ratio 16.7 07/26/18 05:30 Glucose 146 mg/dL (70-105) H 07/26/18 05:30 POC Glucose 146 MG/DL (70 - 105) H 07/26/18 06:22 Whole Bld Lactic Acid 1.00 mmol/L (0.60-1.99) 07/25/18 00:00 Calcium 9.1 mg/dL (8.6-10.3) 07/26/18 05:30 Total Bilirubin 0.4 mg/dL (0.3-1.0) 07/26/18 05:30 AST 15 U/L (13-39) 07/26/18 05:30 ALT 11 U/L (7-52) 07/26/18 05:30 Alkaline Phosphatase 59 U/L (34-104) 07/26/18 05:30 Total Protein 6.0 gm/dL (6.0-8.3) 07/26/18 05:30 Albumin 3.1 gm/dL (4.2-5.5) L 07/26/18 05:30 Globulin 2.9 gm/dL 07/26/18 05:30 Albumin/Globulin Ratio 1.1 (1.0-1.8) 07/26/18 05:30 Amylase 16 U/L (29-103) L 07/24/18 23:55 Lipase 10 U/L (11-82) L 07/24/18 23:55 Urine Source CLEAN C 07/25/18 15:44 Urine Color YELLOW 07/25/18 15:44 Urine Clarity CLOUDY (CLEAR) 07/25/18 15:44 Urine pH 6.0 (4.6 - 8.0) 07/25/18 15:44 Ur Specific [place] 1.020 (1.005-1.030) 07/25/18 15:44 Urine Protein 30 mg/dL (NEGATIVE) H 07/25/18 15:44 Urine Glucose (UA) NEGATIVE mg/dL (NEGATIVE) 07/25/18 15:44 Urine Ketones NEGATIVE mg/dL (NEGATIVE) 07/25/18 15:44 Urine Blood TRACE (NEGATIVE) 07/25/18 15:44 Urine Nitrate NEGATIVE (NEGATIVE) 07/25/18 15:44 Urine Bilirubin NEGATIVE (NEGATIVE) 07/25/18 15:44 Urine Urobilinogen 0.2 E.U./dL (0.2 - 1.0) 07/25/18 15:44 Ur Leukocyte Esterase LARGE (NEGATIVE) H 07/25/18 15:44 Urine RBC 2-5 /hpf (0-5) H 07/25/18 15:44 Urine WBC 50-100 /hpf (0-5) H 07/25/18 15:44 Ur Epithelial Cells OCCASIONAL /lpf (FEW) 07/25/18 15:44 Urine Bacteria MODERATE /hpf (NONE SEEN) H 07/25/18 15:44 Blood Type O NEGATIVE 07/25/18 03:05 Antibody Screen NEGATIVE 07/25/18 03:05 - Physical Exam Vitals and I&O: Vital Signs Temp 97 F 07/26/18 08:00 Pulse 83 07/26/18 08:22 Resp 20 07/26/18 08:00 BP 161/94 07/26/18 08:21 Pulse Ox 97 07/26/18 08:00 Intake & Output 07/25/18 07/26/18 07/26/18 18:59 06:59 18:59 Intake Total 500 Output Total 1300 Balance -800 Weight (lbs) 74.843 kg 75.342 kg Intake: Oral 400 Other 100 Output: Urine 950 Stool 350 Other: # Voids 3 Stool Characteristics Liquid Weight Source Bedscale Bedscale Active Medications: Current Medications Acetaminophen (Tylenol) 650 mg PO Q4HR PRN PRN Reason: FEVER TEMP >101, AND MILD PAIN Stop: 09/23/18 09:01 Acetaminophen (Tylenol Extra Strength) 1,000 mg PO Q4HR PRN PRN Reason: Pain (Moderate) Stop: 09/23/18 09:01 Al Hydrox/Mg Hydrox/Simethicone (Maalox) 30 ml PO Q4H PRN PRN Reason: Abdominal Pain Stop: 09/23/18 09:01 Amitriptyline HCl (Elavil) 50 mg PO HS [facility] Stop: 09/23/18 20:59 Last Admin: 07/25/18 20:43 Dose: 50 mg Ascorbic Acid (Vitamin C) 500 mg PO DAILY [facility] Stop: 09/24/18 08:59 Last Admin: 07/26/18 08:22 Dose: 500 mg Aspirin (Aspirin Chewable) 81 mg PO DAILY [facility] Stop: 09/23/18 08:59 Last Admin: 07/26/18 08:23 Dose: 81 mg Baclofen (Lioresal) 10 mg PO Q8HR [facility] Stop: 09/23/18 12:59 Last Admin: 07/26/18 04:16 Dose: 10 mg Docusate Sodium (Colace) 100 mg PO DAILY [facility] Stop: 09/23/18 08:59 Last Admin: 07/26/18 08:23 Dose: Not Given Duloxetine HCl (Cymbalta) 30 mg PO DAILY [facility] Stop: 09/23/18 09:14 Last Admin: 07/26/18 08:22 Dose: 30 mg Hydromorphone HCl (Dilaudid) 1 mg IVP Q4HR PRN PRN Reason: Pain (Moderate) Stop: 09/23/18 02:55 Hydromorphone HCl (Dilaudid) 2 mg IVP Q4HR PRN PRN Reason: Pain (Severe) Stop: 09/23/18 02:55 Last Admin: 07/26/18 08:15 Dose: 2 mg Dextrose/Sodium Chloride (D5-0.45ns) 1,000 mls @ 50 mls/hr IV .Q20H [facility] Stop: 09/23/18 02:55 Last Admin: 07/25/18 03:48 Dose: 50 mls/hr Levofloxacin (Levaquin Pb) 500 mg in 100 mls @ 100 mls/hr IV Q24HR [facility] Stop: 09/23/18 20:59 Last Admin: 07/25/18 20:45 Dose: 100 mls/hr Insulin Aspart (Novolog Insulin Sliding Scale) 0 units SUBQ [facility]; Protocol Stop: 09/23/18 11:29 Last Admin: 07/26/18 06:30 Dose: Not Given Lactobacillus Rhamnosus (Culturelle 15b) 1 each PO DAILY [facility] Stop: 09/24/18 08:59 Last Admin: 07/26/18 08:23 Dose: 1 each Lisinopril (Zestril) 10 mg PO DAILY [facility] Stop: 09/23/18 08:59 Last Admin: 07/26/18 08:21 Dose: 10 mg Ondansetron HCl (Zofran) 4 mg IV Q6H PRN PRN Reason: Nausea / Vomiting Stop: 09/23/18 09:01 Pregabalin (Lyrica) 150 mg PO BID [facility] Stop: 09/23/18 09:14 Last Admin: 07/26/18 08:23 Dose: 150 mg Vitamin D (Vitamin D3) 4,000 iu PO DAILY [facility] Stop: 09/23/18 09:14 Last Admin: 07/26/18 08:23 Dose: 4,000 iu General: No acute distress HEENT: Atraumatic Neck: Supple, JVD, no Thyromegaly Cardiovascular: Regular rate, Normal S1, Normal S2 Lungs: Clear to auscultation Abdomen: Bowel sounds - Procedures Procedures: Procedures Procedure Code Date INSPECTION OF LOWER INTESTINAL TRACT, ENDO [id number] 05/20/18 Assessment/Plan - Problem List Patient Problems: All Active Problems Chronic pain syndrome (Acute) G89.4 Diabetes (Acute) E11.9 Gastrointestinal bleed (Acute) K92.2 HTN (hypertension) (Acute) I10 - Plan Plan: as per order sheet
--- NOTE | 2018-07-26 10:13 | GI Progress Note ---
Subjective - Review of Systems Service Date: 07/26/18 Events since last encounter: No events Subjective: Feels the same Objective - Results Result Diagrams: 07/26/18 05:30 07/26/18 05:30 Recent Labs: Laboratory Last Values WBC 9.9 Th/cmm (4.8-10.8) 07/26/18 05:30 RBC 5.25 Mil/cmm (4.30-5.70) 07/26/18 05:30 Hgb 15.1 gm/dL (12-16) 07/26/18 05:30 Hct 45.7 % (41.0-60) 07/26/18 05:30 MCV 87.1 fl (80-99) 07/26/18 05:30 MCH 28.7 pg (26.0-30.0) 07/26/18 05:30 MCHC Differential 33.0 pg (28.0-36.0) 07/26/18 05:30 RDW 14.8 % (11.5-20.0) 07/26/18 05:30 Plt Count 237 Th/cmm (150-400) 07/26/18 05:30 MPV 7.7 fl 07/26/18 05:30 Neutrophils % 67.1 % (40.0-80.0) 07/26/18 05:30 Lymphocytes % 16.1 % (20.0-50.0) L 07/26/18 05:30 Monocytes % 9.2 % (2.0-10.0) 07/26/18 05:30 Eosinophils % 5.7 % (0.0-5.0) H 07/26/18 05:30 Basophils % 1.9 % (0.0-2.0) 07/26/18 05:30 PT 9.6 SECONDS (9.5-11.5) 07/24/18 23:55 INR 0.92 (0.5-1.4) 07/24/18 23:55 PTT (Actin FS) 29.6 SECONDS (26.0-38.0) 07/24/18 23:55 Sodium 134 mEq/L (136-145) L 07/26/18 05:30 Potassium 3.8 mEq/L (3.5-5.1) 07/26/18 05:30 Chloride 104 mEq/L (98-107) 07/26/18 05:30 Carbon Dioxide 23.8 mEq/L (21.0-31.0) 07/26/18 05:30 Anion Gap 10.0 (7.0-16.0) 07/26/18 05:30 BUN 10 mg/dL (7-25) 07/26/18 05:30 Creatinine 0.6 mg/dL (0.7-1.3) L 07/26/18 05:30 Est GFR ( Amer) > 60.0 ml/min (>90) 07/26/18 05:30 Est GFR (Non-Af Amer) > 60.0 ml/min 07/26/18 05:30 BUN/Creatinine Ratio 16.7 07/26/18 05:30 Glucose 146 mg/dL (70-105) H 07/26/18 05:30 POC Glucose 146 MG/DL (70 - 105) H 07/26/18 06:22 Whole Bld Lactic Acid 1.00 mmol/L (0.60-1.99) 07/25/18 00:00 Calcium 9.1 mg/dL (8.6-10.3) 07/26/18 05:30 Total Bilirubin 0.4 mg/dL (0.3-1.0) 07/26/18 05:30 AST 15 U/L (13-39) 07/26/18 05:30 ALT 11 U/L (7-52) 07/26/18 05:30 Alkaline Phosphatase 59 U/L (34-104) 07/26/18 05:30 Total Protein 6.0 gm/dL (6.0-8.3) 07/26/18 05:30 Albumin 3.1 gm/dL (4.2-5.5) L 07/26/18 05:30 Globulin 2.9 gm/dL 07/26/18 05:30 Albumin/Globulin Ratio 1.1 (1.0-1.8) 07/26/18 05:30 Amylase 16 U/L (29-103) L 07/24/18 23:55 Lipase 10 U/L (11-82) L 07/24/18 23:55 Urine Source CLEAN C 07/25/18 15:44 Urine Color YELLOW 07/25/18 15:44 Urine Clarity CLOUDY (CLEAR) 09/01/18 15:44 Urine pH 6.0 (4.6 - 8.0) 07/25/18 15:44 Ur Specific [place] 1.020 (1.005-1.030) 07/25/18 15:44 Urine Protein 30 mg/dL (NEGATIVE) H 07/25/18 15:44 Urine Glucose (UA) NEGATIVE mg/dL (NEGATIVE) 07/25/18 15:44 Urine Ketones NEGATIVE mg/dL (NEGATIVE) 07/25/18 15:44 Urine Blood TRACE (NEGATIVE) 07/25/18 15:44 Urine Nitrate NEGATIVE (NEGATIVE) 07/25/18 15:44 Urine Bilirubin NEGATIVE (NEGATIVE) 07/25/18 15:44 Urine Urobilinogen 0.2 E.U./dL (0.2 - 1.0) 07/25/18 15:44 Ur Leukocyte Esterase LARGE (NEGATIVE) H 07/25/18 15:44 Urine RBC 2-5 /hpf (0-5) H 07/25/18 15:44 Urine WBC 50-100 /hpf (0-5) H 07/25/18 15:44 Ur Epithelial Cells OCCASIONAL /lpf (FEW) 07/25/18 15:44 Urine Bacteria MODERATE /hpf (NONE SEEN) H 07/25/18 15:44 Blood Type O NEGATIVE 07/25/18 03:05 Antibody Screen NEGATIVE 07/25/18 03:05 - Physical Exam Vitals and I&O: Vital Signs Temp 97 F 07/26/18 08:00 Pulse 83 07/26/18 08:22 Resp 20 07/26/18 08:00 BP 161/94 07/26/18 08:21 Pulse Ox 97 07/26/18 08:00 Intake & Output 07/25/18 07/26/18 07/26/18 18:59 06:59 18:59 Intake Total 500 Output Total 1300 Balance -800 Weight (lbs) 74.843 kg 75.342 kg Intake: Oral 400 Other 100 Output: Urine 950 Stool 350 Other: # Voids 3 Stool Characteristics Liquid Weight Source Bedscale Bedscale Active Medications: Current Medications Acetaminophen (Tylenol) 650 mg PO Q4HR PRN PRN Reason: FEVER TEMP >101, AND MILD PAIN Stop: 09/23/18 09:01 Acetaminophen (Tylenol Extra Strength) 1,000 mg PO Q4HR PRN PRN Reason: Pain (Moderate) Stop: 09/23/18 09:01 Al Hydrox/Mg Hydrox/Simethicone (Maalox) 30 ml PO Q4H PRN PRN Reason: Abdominal Pain Stop: 09/23/18 09:01 Amitriptyline HCl (Elavil) 50 mg PO HS [facility]PLACED BY [facility] Stop: 09/23/18 20:59 Last Admin: 07/25/18 20:43 Dose: 50 mg Ascorbic Acid (Vitamin C) 500 mg PO DAILY [facility] Stop: 09/24/18 08:59 Last Admin: 07/26/18 08:22 Dose: 500 mg Aspirin (Aspirin Chewable) 81 mg PO DAILY [facility] Stop: 09/23/18 08:59 Last Admin: 07/26/18 08:23 Dose: 81 mg Baclofen (Lioresal) 10 mg PO Q8HR [facility]PL[facility] Stop: 09/23/18 12:59 Last Admin: 07/26/18 04:16 Dose: 10 mg Docusate Sodium (Colace) 100 mg PO DAILY [facility] Stop: 09/23/18 08:59 Last Admin: 07/26/18 08:23 Dose: Not Given Duloxetine HCl (Cymbalta) 30 mg PO DAILY [facility] Stop: 09/23/18 09:14 Last Admin: 07/26/18 08:22 Dose: 30 mg Hydromorphone HCl (Dilaudid) 1 mg IVP Q4HR PRN PRN Reason: Pain (Moderate) Stop: 09/23/18 02:55 Hydromorphone HCl (Dilaudid) 2 mg IVP Q4HR PRN PRN Reason: Pain (Severe) Stop: 09/23/18 02:55 Last Admin: 07/26/18 08:15 Dose: 2 mg Dextrose/Sodium Chloride (D5-0.45ns) 1,000 mls @ 50 mls/hr IV .Q20H [facility]PL[facility] Stop: 09/23/18 02:55 Last Admin: 07/25/18 03:48 Dose: 50 mls/hr Levofloxacin (Levaquin Pb) 500 mg in 100 mls @ 100 mls/hr IV Q24HR [facility]PL[facility] Stop: 09/23/18 20:59 Last Admin: 07/25/18 20:45 Dose: 100 mls/hr Insulin Aspart (Novolog Insulin Sliding Scale) 0 units SUBQ [facility]PL[facility]; Protocol Stop: 09/23/18 11:29 Last Admin: 07/26/18 06:30 Dose: Not Given Lactobacillus Rhamnosus (Culturelle 15b) 1 each PO DAILY [facility] Stop: 09/24/18 08:59 Last Admin: 07/26/18 08:23 Dose: 1 each Lisinopril (Zestril) 10 mg PO DAILY [facility] Stop: 09/23/18 08:59 Last Admin: 07/26/18 08:21 Dose: 10 mg Ondansetron HCl (Zofran) 4 mg IV Q6H PRN PRN Reason: Nausea / Vomiting Stop: 09/23/18 09:01 Pregabalin (Lyrica) 150 mg PO BID [facility] Stop: 09/23/18 09:14 Last Admin: 07/26/18 08:23 Dose: 150 mg Vitamin D (Vitamin D3) 4,000 iu PO DAILY [facility] Stop: 09/23/18 09:14 Last Admin: 07/26/18 08:23 Dose: 4,000 iu General: Alert, No acute distress Neck: no Thyromegaly Cardiovascular: Regular rate, Normal S1, Normal S2 Lungs: Clear to auscultation, Normal air movement Abdomen: Bowel sounds, Soft, Other (colostomy bag with brown stool) - Procedures Procedures: Procedures Procedure Code Date INSPECTION OF LOWER INTESTINAL TRACT, ENDO [id number] 05/20/18 Assessment/Plan - Problem List Patient Problems: All Active Problems Chronic pain syndrome (Acute) G89.4 Diabetes (Acute) E11.9 Gastrointestinal bleed (Acute) K92.2 HTN (hypertension) (Acute) I10 - Plan Plan: 1. Gastrointestinal bleed (Acute) K92.2 H/H stable . No active bleeding. 2. Abdominal pain . Multifactorial including surgery/scars continue current management and add Bentyl 3. S/P diverting colostomy ? if he is a candidate for revision
[2018-07-26] MEDS: D5-0.45NS 1,000 ML IV SCH (16:22)
--- NOTE | 2018-07-26 19:17 | Consultation ---
Consult Note - Consult Note Service Date: 07/26/18 Referring Physician: Yunier Kraft Consult Note: PHYSICIAN Consultation Note: Date of Admission: 07/25/18 Purpose of Consultation: Chief Complaint: Patient CHAPINCITO MCGEE was admitted to [facility] with HYPONATREMIA,BLEEDING AT COLOSTOMY. History of Present Illness: 57 year female with a past medical history of bilateral above-knee amputation, colostomy, hypertension, diabetes mellitus type 2, chronic pain syndrome brought in from [facility] for bleeding from colostomy site. On initial evaluation, patient's temperature was 98.1F and WBC count was 15,300. Urinalysis showed pyuria and bacteriuria. Past Medical History: bilateral above-knee amputation, colostomy, hypertension, diabetes mellitus type 2, chronic pain syndrome Allergies Allergy/AdvReac Type Severity Reaction Status Date / Time permethrin [From Elimite] Allergy Verified 05/20/18 20:22 mushroom AdvReac Verified 05/20/18 20:22 strawberry AdvReac Verified 05/20/18 20:22 Vital Signs Temp 97.6 F 07/26/18 15:39 Pulse 85 07/26/18 15:39 Resp 20 07/26/18 15:39 BP 140/90 07/26/18 15:39 Pulse Ox 94 07/26/18 15:39 Intake & Output 07/26/18 07/26/18 07/27/18 06:59 18:59 06:59 Intake Total 1500 550 Output Total 1300 450 Balance 200 100 Weight (lbs) 75.342 kg 75.296 kg Intake: Intake, IV Amount 1000 D5-0.45NS 1,000 ml @ 50 1000 mls/hr IV .Q20H [facility] Rx#: [id number] Oral 400 550 Other 100 Output: Urine 950 400 Stool 350 50 Other: # Voids 3 Stool Characteristics Liquid Liquid Weight Source [facility] Laboratory Results - last 24 hr 07/26/18 07/26/18 07/26/18 05:30 05:30 06:22 WBC 9.9 RBC 5.25 Hgb 15.1 Hct 45.7 MCV 87.1 MCH 28.7 MCHC Differential 33.0 RDW 14.8 Plt Count 237 MPV 7.7 Neutrophils % 67.1 Lymphocytes % 16.1 L Monocytes % 9.2 Eosinophils % 5.7 H Basophils % 1.9 Sodium 134 L Potassium 3.8 Chloride 104 Carbon Dioxide 23.8 Anion Gap 10.0 BUN 10 Creatinine 0.6 L Est GFR ( Amer) > 60.0 Est GFR (Non-Af Amer) > 60.0 BUN/Creatinine Ratio 16.7 Glucose 146 H POC Glucose 146 H Calcium 9.1 Total Bilirubin 0.4 AST 15 ALT 11 Alkaline Phosphatase 59 Total Protein 6.0 Albumin 3.1 L Globulin 2.9 Albumin/Globulin Ratio 1.1 07/26/18 07/26/18 12:11 16:40 WBC RBC Hgb Hct MCV MCH MCHC Differential RDW Plt Count MPV Neutrophils % Lymphocytes % Monocytes % Eosinophils % Basophils % Sodium Potassium Chloride Carbon Dioxide Anion Gap BUN Creatinine Est GFR ( Amer) Est GFR (Non-Af Amer) BUN/Creatinine Ratio Glucose POC Glucose 159 H 131 H Calcium Total Bilirubin AST ALT Alkaline Phosphatase Total Protein Albumin Globulin Albumin/Globulin Ratio Home Medication Medication Instructions Recorded Type Acetaminophen [Tylenol] 650 mg PO Q4HR PRN 10/06/17 History Amino Acids/Protein Hydrolys 30 ml PO TID 10/06/17 History [Pro-Stat Awc Liquid] Amitriptyline HCl [Amitriptyline 50 mg PO HS 10/06/17 History HCl*] Ascorbic Acid [Vitamin C] 500 mg PO DAILY 10/06/17 History Aspirin [Aspirin Chewable] 81 mg PO DAILY 10/06/17 History Baclofen [Baclofen*] 10 mg PO Q8H 10/06/17 History Cholecalciferol (Vitamin D3) 1 cap PO DAILY 10/06/17 History [Vitamin D3] Docusate Sodium [Colace] 100 mg PO DAILY 10/06/17 History Duloxetine HCl [Cymbalta] 20 mg PO DAILY 10/06/17 History HYDROmorphone [Dilaudid] 3 mg IM Q6H PRN 10/06/17 History Insulin Aspart, Recombinant See Protocol SUBQ [facility] 10/06/17 History [NovoLOG FLEXPEN] Lisinopril [Zestril*] 10 mg PO DAILY 10/06/17 History Magnesium Hydroxide [Milk of 30 ml PO Q24H PRN 10/06/17 History Magnesia] Multivit-Min/Iron Fum/Folic AC 1 tab PO DAILY 10/06/17 History [Lmdaf-Ynwjhmw-Xnxmmdou Tablet] Pregabalin [Lyrica] 150 mg PO BID 10/06/17 History Acetaminophen [Tylenol Extra 1,000 mg PO Q4HR PRN 05/20/18 History Strength] Al Hyd/Mg Hyd/Simethicone [Maalox] 30 ml PO Q4HR PRN udc 05/25/18 Rx HYDROmorphone [Dilaudid] 1 mg IVP Q4HR PRN syr 05/25/18 Rx HYDROmorphone [Dilaudid] 2 mg IVP Q3HR PRN syr 05/25/18 Rx Insulin Aspart Sliding Scale See Protocol SUBQ [facility] unit 05/25/18 Rx [NovoLOG INSULIN SLIDING SCALE] Lactobacillus Rhamnosus GG 15B 1 each PO DAILY cap.sprink 05/25/18 Rx [Culturelle 15B] Ondansetron HCl [Zofran*] 4 mg IV Q6H PRN vial 05/25/18 Rx cefTRIAXone [Rocephin] 1 gm IV Q24HR vial 05/25/18 Rx cloNIDine HCl [Catapres] 0.1 mg PO Q4HR PRN tab 05/25/18 Rx Current Medications Generic Name Dose Route Start Last Admin Trade Name Freq PRN Reason Stop Dose Admin Acetaminophen 650 mg 07/25/18 09:02 Tylenol PO 09/23/18 09:01 Q4HR PRN FEVER TEMP >101, AND MILD PAIN Acetaminophen 1,000 mg 07/25/18 09:02 Tylenol Extra Strength PO 09/23/18 09:01 Q4HR PRN Pain (Moderate) Al Hydrox/Mg Hydrox/Simethicone 30 ml 07/25/18 09:02 Maalox PO 09/23/18 09:01 Q4H PRN Abdominal Pain Amitriptyline HCl 50 mg 07/25/18 21:00 07/25/18 20:43 Elavil PO 09/23/18 20:59 50 mg HS [facility] Administration Ascorbic Acid 500 mg 07/26/18 09:00 07/26/18 08:22 Vitamin C PO 09/24/18 08:59 500 mg DAILY [facility] Administration Aspirin 81 mg 07/25/18 09:00 07/26/18 08:23 Aspirin Chewable PO 09/23/18 08:59 81 mg DAILY [facility] Administration Baclofen 10 mg 07/25/18 13:00 07/26/18 12:06 Lioresal PO 09/23/18 12:59 10 mg Q8HR [facility] Administration Docusate Sodium 100 mg 07/25/18 09:00 07/26/18 08:23 Colace PO 09/23/18 08:59 Not Given DAILY [facility] Duloxetine HCl 30 mg 07/25/18 09:15 07/26/18 08:22 Cymbalta PO 09/23/18 09:14 30 mg DAILY [facility] Administration Hydromorphone HCl 1 mg 07/25/18 02:56 Dilaudid IVP 09/23/18 02:55 Q4HR PRN Pain (Moderate) Hydromorphone HCl 2 mg 07/25/18 02:56 07/26/18 16:21 Dilaudid IVP 09/23/18 02:55 2 mg Q4HR PRN Administration Pain (Severe) Dextrose/Sodium Chloride 1,000 mls @ 50 mls/hr 07/25/18 02:56 07/26/18 16:22 D5-0.45ns IV 09/23/18 02:55 50 mls/hr .Q20H [facility] Administration Levofloxacin 500 mg in 100 mls @ 100 mls/hr 07/25/18 21:00 07/25/18 20:45 Levaquin Pb IV 09/23/18 20:59 100 mls/hr Q24HR [facility] Administration Insulin Aspart 0 units 07/25/18 11:30 07/26/18 16:46 Novolog Insulin Sliding Scale SUBQ 09/23/18 11:29 Not Given ACHS [facility] Protocol Lactobacillus Rhamnosus 1 each 07/26/18 09:00 07/26/18 08:23 Culturelle 15b PO 09/24/18 08:59 1 each DAILY [facility] Administration Lisinopril 10 mg 07/25/18 09:00 07/26/18 08:21 Zestril PO 09/23/18 08:59 10 mg DAILY [facility] Administration Ondansetron HCl 4 mg 07/25/18 09:02 Zofran IV 09/23/18 09:01 Q6H PRN Nausea / Vomiting Pregabalin 150 mg 07/25/18 09:15 07/26/18 16:21 Lyrica PO 09/23/18 09:14 150 mg BID [facility] Administration Vitamin D 4,000 iu 07/25/18 09:15 07/26/18 08:23 Vitamin D3 PO 09/23/18 09:14 4,000 iu DAILY [facility] Administration Review of Systems: A 12 point ROS was reviewed with the pertinent positive and negatives noted in the HPI. General/Constitutional: No fever, No chills, No weight loss, No weakness, No diaphoresis, No edema, No loss of appetite Skin: No skin lesions, No rash, No bruising Head: No headache, No light-headedness Eyes: No loss of vision, No pain, No diplopia ENT: No earache, No nasal drainage, No sore throat, No tinnitus Neck: No neck pain, No swelling, No thyromegaly, No stiffness, No mass noted Cardio Vascular: No chest pain, No palpitations, No PND, No orthopnea, No edema Pulmonary: No SOB, No cough, No sputum, No wheezing GI: Other (blood through ostomy) G/U: No dysuria, No frequency, No hematuria Musculoskeletal: No bone or joint pain, No back pain, No muscle pain Endocrine: No polyuria, No polydipsia Psychiatric: No prior psych history, No depression, No anxiety, No suicidal ideation Hematopoietic: No bruising, No lymphadenopathy Allergic/Immuno: No urticaria, No angioedema Neurological: No syncope, No focal symptoms, No weakness, No paresthesia, No headache, No seizure, No dizziness, No confusion, No vertigo Social History Smoking Status Current every day smoker Family Medical History COPD Physical Exam: General: Comfortable not in acute distress HEENT: Head: Normocephalic atraumatic. Oral cavity: Moist, pink tongue. Eyes: Pallor is present icterus. Neck: Supple, no JVD. No carotid bruit. No use of accessory muscles Cardio: S1 and S2 within normal with regular rhythm. Respiratory: Vesicular breath sound. No wheezing. Abdominal: Soft, nontender, nondistended bowel sounds present. colostomy LLQ, reddish brown stool. Genital/Urinary: Deferred Extremities: b/l BKA. Neurological: Alert, awake, oriented 3 Assessment: 1. Leukocytosis improved. 2. UTI. 3. Diabetes mellitus type 2. 4. Hypertension. 5. Colostomy malfunction. Plan: Continue Levaquin. Thank you, Dr. Kraft for involving me taking care of this patient Signed, Rajan Stoll M.D. [id number]
[2018-07-26] MEDS: Levofloxacin 500mg/100mL 500 MG/100 ML BAG IV SCH (20:17)
[2018-07-26 23:02] LABS: A1C % 8.1 % (4.0-6.0)
[2018-07-27] MEDS: HYDROmorphone 2 mg/mL 1mL Vial IVP PRN ×6 (00:29→20:37)
[2018-07-27] MEDS: INSULIN ASPART SLIDING SCALE 100 UNITS/ML UNIT SUBQ SCH ×4 (06:32→21:00)
[2018-07-27] MEDS: Vitamin D3 2,000 IU SGL PO SCH (08:28)
[2018-07-27] MEDS: Aspirin 81mg Chewable Tab PO SCH (08:29)
[2018-07-27] MEDS: Multivitamin w/ Minerals Tab PO SCH (08:29)
[2018-07-27] MEDS: Lactobacillus Rhamnosus GG 15 Billion CFU CAP.SPRINK PO SCH (08:29)
--- NOTE | 2018-07-27 10:33 | General Progress Note ---
Subjective - Review of Systems Events since last encounter: patient awake alert in no distress Objective - Results Result Diagrams: 07/26/18 05:30 07/26/18 05:30 Recent Labs: Laboratory Last Values WBC 9.9 Th/cmm (4.8-10.8) 07/26/18 05:30 RBC 5.25 Mil/cmm (4.30-5.70) 07/26/18 05:30 Hgb 15.1 gm/dL (12-16) 07/26/18 05:30 Hct 45.7 % (41.0-60) 07/26/18 05:30 MCV 87.1 fl (80-99) 07/26/18 05:30 MCH 28.7 pg (26.0-30.0) 07/26/18 05:30 MCHC Differential 33.0 pg (28.0-36.0) 07/26/18 05:30 RDW 14.8 % (11.5-20.0) 07/26/18 05:30 Plt Count 237 Th/cmm (150-400) 07/26/18 05:30 MPV 7.7 fl 07/26/18 05:30 Neutrophils % 67.1 % (40.0-80.0) 07/26/18 05:30 Lymphocytes % 16.1 % (20.0-50.0) L 07/26/18 05:30 Monocytes % 9.2 % (2.0-10.0) 07/26/18 05:30 Eosinophils % 5.7 % (0.0-5.0) H 07/26/18 05:30 Basophils % 1.9 % (0.0-2.0) 07/26/18 05:30 PT 9.6 SECONDS (9.5-11.5) 07/24/18 23:55 INR 0.92 (0.5-1.4) 07/24/18 23:55 PTT (Actin FS) 29.6 SECONDS (26.0-38.0) 07/24/18 23:55 Sodium 134 mEq/L (136-145) L 07/26/18 05:30 Potassium 3.8 mEq/L (3.5-5.1) 07/26/18 05:30 Chloride 104 mEq/L (98-107) 07/26/18 05:30 Carbon Dioxide 23.8 mEq/L (21.0-31.0) 07/26/18 05:30 Anion Gap 10.0 (7.0-16.0) 07/26/18 05:30 BUN 10 mg/dL (7-25) 07/26/18 05:30 Creatinine 0.6 mg/dL (0.7-1.3) L 07/26/18 05:30 Est GFR ( Amer) > 60.0 ml/min (>90) 07/26/18 05:30 Est GFR (Non-Af Amer) > 60.0 ml/min 07/26/18 05:30 BUN/Creatinine Ratio 16.7 07/26/18 05:30 Glucose 146 mg/dL (70-105) H 07/26/18 05:30 POC Glucose 136 MG/DL (70 - 105) H 07/27/18 05:58 Hemoglobin A1c % 8.1 % (4.0-6.0) H 07/25/18 06:05 Whole Bld Lactic Acid 1.00 mmol/L (0.60-1.99) 07/25/18 00:00 Calcium 9.1 mg/dL (8.6-10.3) 07/26/18 05:30 Total Bilirubin 0.4 mg/dL (0.3-1.0) 07/26/18 05:30 AST 15 U/L (13-39) 07/26/18 05:30 ALT 11 U/L (7-52) 07/26/18 05:30 Alkaline Phosphatase 59 U/L (34-104) 07/26/18 05:30 Total Protein 6.0 gm/dL (6.0-8.3) 07/26/18 05:30 Albumin 3.1 gm/dL (4.2-5.5) L 07/26/18 05:30 Globulin 2.9 gm/dL 07/26/18 05:30 Albumin/Globulin Ratio 1.1 (1.0-1.8) 07/26/18 05:30 Amylase 16 U/L (29-103) L 07/24/18 23:55 Lipase 10 U/L (11-82) L 07/24/18 23:55 Urine Source CLEAN C 07/25/18 15:44 Urine Color YELLOW 09/01/18 15:44 Urine Clarity CLOUDY (CLEAR) 07/25/18 15:44 Urine pH 6.0 (4.6 - 8.0) 07/25/18 15:44 Ur Specific [place] 1.020 (1.005-1.030) 07/25/18 15:44 Urine Protein 30 mg/dL (NEGATIVE) H 07/25/18 15:44 Urine Glucose (UA) NEGATIVE mg/dL (NEGATIVE) 07/25/18 15:44 Urine Ketones NEGATIVE mg/dL (NEGATIVE) 07/25/18 15:44 Urine Blood TRACE (NEGATIVE) 07/25/18 15:44 Urine Nitrate NEGATIVE (NEGATIVE) 07/25/18 15:44 Urine Bilirubin NEGATIVE (NEGATIVE) 07/25/18 15:44 Urine Urobilinogen 0.2 E.U./dL (0.2 - 1.0) 07/25/18 15:44 Ur Leukocyte Esterase LARGE (NEGATIVE) H 07/25/18 15:44 Urine RBC 2-5 /hpf (0-5) H 07/25/18 15:44 Urine WBC 50-100 /hpf (0-5) H 07/25/18 15:44 Ur Epithelial Cells OCCASIONAL /lpf (FEW) 07/25/18 15:44 Urine Bacteria MODERATE /hpf (NONE SEEN) H 07/25/18 15:44 Blood Type O NEGATIVE 07/25/18 03:05 Antibody Screen NEGATIVE 07/25/18 03:05 - Physical Exam Vitals and I&O: Vital Signs Temp 97.3 F 07/27/18 07:38 Pulse 58 07/27/18 08:29 Resp 17 07/27/18 09:22 BP 145/86 07/27/18 08:29 Pulse Ox 95 07/27/18 07:38 Intake & Output 07/26/18 07/27/18 07/27/18 18:59 06:59 18:59 Intake Total 550 300 Output Total 450 125 Balance 100 175 Weight (lbs) 75.296 kg 75.296 kg Intake: Oral 550 300 Output: Urine 400 100 Stool 50 25 Other: # Voids 3 Stool Characteristics Liquid Liquid Liquid Weight Source Bedscale Bedscale Active Medications: Current Medications Acetaminophen (Tylenol) 650 mg PO Q4HR PRN PRN Reason: FEVER TEMP >101, AND MILD PAIN Stop: 09/23/18 09:01 Acetaminophen (Tylenol Extra Strength) 1,000 mg PO Q4HR PRN PRN Reason: Pain (Moderate) Stop: 09/23/18 09:01 Al Hydrox/Mg Hydrox/Simethicone (Maalox) 30 ml PO Q4H PRN PRN Reason: Abdominal Pain Stop: 09/23/18 09:01 Amitriptyline HCl (Elavil) 50 mg PO HS [facility] Stop: 09/23/18 20:59 Last Admin: 07/26/18 20:16 Dose: 50 mg Ascorbic Acid (Vitamin C) 500 mg PO DAILY [facility] Stop: 09/24/18 08:59 Last Admin: 07/27/18 08:29 Dose: 500 mg Aspirin (Aspirin Chewable) 81 mg PO DAILY [facility] Stop: 09/23/18 08:59 Last Admin: 07/27/18 08:29 Dose: 81 mg Baclofen (Lioresal) 10 mg PO Q8HR [facility] Stop: 09/23/18 12:59 Last Admin: 07/27/18 06:13 Dose: 10 mg Docusate Sodium (Colace) 100 mg PO DAILY [facility] Stop: 09/23/18 08:59 Last Admin: 07/27/18 08:29 Dose: Not Given Duloxetine HCl (Cymbalta) 30 mg PO DAILY [facility] Stop: 09/23/18 09:14 Last Admin: 07/27/18 08:29 Dose: 30 mg Hydromorphone HCl (Dilaudid) 1 mg IVP Q4HR PRN PRN Reason: Pain (Moderate) Stop: 09/23/18 02:55 Hydromorphone HCl (Dilaudid) 2 mg IVP Q4HR PRN PRN Reason: Pain (Severe) Stop: 09/23/18 02:55 Last Admin: 07/27/18 08:28 Dose: 2 mg Dextrose/Sodium Chloride (D5-0.45ns) 1,000 mls @ 50 mls/hr IV .Q20H [facility] Stop: 09/23/18 02:55 Last Admin: 07/26/18 16:22 Dose: 50 mls/hr Levofloxacin (Levaquin Pb) 500 mg in 100 mls @ 100 mls/hr IV Q24HR [facility] Stop: 09/23/18 20:59 Last Admin: 07/26/18 20:17 Dose: 100 mls/hr Insulin Aspart (Novolog Insulin Sliding Scale) 0 units SUBQ ACHS [facility]; Protocol Stop: 09/23/18 11:29 Last Admin: 07/27/18 06:32 Dose: Not Given Lactobacillus Rhamnosus (Culturelle 15b) 1 each PO DAILY [facility] Stop: 09/24/18 08:59 Last Admin: 07/27/18 08:29 Dose: 1 each Lisinopril (Zestril) 10 mg PO DAILY [facility] Stop: 09/23/18 08:59 Last Admin: 07/27/18 08:29 Dose: 10 mg Ondansetron HCl (Zofran) 4 mg IV Q6H PRN PRN Reason: Nausea / Vomiting Stop: 09/23/18 09:01 Pregabalin (Lyrica) 150 mg PO BID [facility] Stop: 09/23/18 09:14 Last Admin: 07/27/18 08:29 Dose: 150 mg Vitamin D (Vitamin D3) 4,000 iu PO DAILY [facility] Stop: 09/23/18 09:14 Last Admin: 07/27/18 08:28 Dose: 4,000 iu General: Alert, No acute distress HEENT: Atraumatic Neck: no Thyromegaly Cardiovascular: Regular rate, Normal S1, Normal S2 Lungs: Clear to auscultation, Normal air movement Abdomen: Bowel sounds, Soft, Other (colostomy bag with brown stool) - Procedures Procedures: Procedures Procedure Code Date INSPECTION OF LOWER INTESTINAL TRACT, ENDO [id number] 05/20/18 Assessment/Plan - Problem List Patient Problems: All Active Problems Chronic pain syndrome (Acute) G89.4 Diabetes (Acute) E11.9 Gastrointestinal bleed (Acute) K92.2 HTN (hypertension) (Acute) I10 - Plan Plan: as per order sheet
[2018-07-27] MEDS: D5-0.45NS 1,000 ML IV SCH (13:39)
[2018-07-27] MEDS: Levofloxacin 500mg/100mL 500 MG/100 ML BAG IV SCH (20:34)
--- NOTE | 2018-07-27 22:12 | GI Progress Note ---
Subjective - Review of Systems Service Date: 07/27/18 Events since last encounter: No new events, resting comfortably Objective - Results Result Diagrams: 07/26/18 05:30 07/26/18 05:30 Recent Labs: Laboratory Last Values WBC 9.9 Th/cmm (4.8-10.8) 07/26/18 05:30 RBC 5.25 Mil/cmm (4.30-5.70) 07/26/18 05:30 Hgb 15.1 gm/dL (12-16) 07/26/18 05:30 Hct 45.7 % (41.0-60) 07/26/18 05:30 MCV 87.1 fl (80-99) 07/26/18 05:30 MCH 28.7 pg (26.0-30.0) 07/26/18 05:30 MCHC Differential 33.0 pg (28.0-36.0) 07/26/18 05:30 RDW 14.8 % (11.5-20.0) 07/26/18 05:30 Plt Count 237 Th/cmm (150-400) 07/26/18 05:30 MPV 7.7 fl 07/26/18 05:30 Neutrophils % 67.1 % (40.0-80.0) 07/26/18 05:30 Lymphocytes % 16.1 % (20.0-50.0) L 07/26/18 05:30 Monocytes % 9.2 % (2.0-10.0) 07/26/18 05:30 Eosinophils % 5.7 % (0.0-5.0) H 07/26/18 05:30 Basophils % 1.9 % (0.0-2.0) 07/26/18 05:30 PT 9.6 SECONDS (9.5-11.5) 07/24/18 23:55 INR 0.92 (0.5-1.4) 07/24/18 23:55 PTT (Actin FS) 29.6 SECONDS (26.0-38.0) 07/24/18 23:55 Sodium 134 mEq/L (136-145) L 07/26/18 05:30 Potassium 3.8 mEq/L (3.5-5.1) 07/26/18 05:30 Chloride 104 mEq/L (98-107) 07/26/18 05:30 Carbon Dioxide 23.8 mEq/L (21.0-31.0) 07/26/18 05:30 Anion Gap 10.0 (7.0-16.0) 07/26/18 05:30 BUN 10 mg/dL (7-25) 07/26/18 05:30 Creatinine 0.6 mg/dL (0.7-1.3) L 07/26/18 05:30 Est GFR ( Amer) > 60.0 ml/min (>90) 07/26/18 05:30 Est GFR (Non-Af Amer) > 60.0 ml/min 07/26/18 05:30 BUN/Creatinine Ratio 16.7 07/26/18 05:30 Glucose 146 mg/dL (70-105) H 07/26/18 05:30 POC Glucose 156 MG/DL (70 - 105) H 07/27/18 20:53 Hemoglobin A1c % 8.1 % (4.0-6.0) H 07/25/18 06:05 Whole Bld Lactic Acid 1.00 mmol/L (0.60-1.99) 07/25/18 00:00 Calcium 9.1 mg/dL (8.6-10.3) 07/26/18 05:30 Total Bilirubin 0.4 mg/dL (0.3-1.0) 07/26/18 05:30 AST 15 U/L (13-39) 07/26/18 05:30 ALT 11 U/L (7-52) 07/26/18 05:30 Alkaline Phosphatase 59 U/L (34-104) 07/26/18 05:30 Total Protein 6.0 gm/dL (6.0-8.3) 07/26/18 05:30 Albumin 3.1 gm/dL (4.2-5.5) L 07/26/18 05:30 Globulin 2.9 gm/dL 07/26/18 05:30 Albumin/Globulin Ratio 1.1 (1.0-1.8) 07/26/18 05:30 Amylase 16 U/L (29-103) L 07/24/18 23:55 Lipase 10 U/L (11-82) L 07/24/18 23:55 Urine Source CLEAN C 07/25/18 15:44 Urine Color YELLOW 07/25/18 15:44 Urine Clarity CLOUDY (CLEAR) 07/25/18 15:44 Urine pH 6.0 (4.6 - 8.0) 07/25/18 15:44 Ur Specific [place] 1.020 (1.005-1.030) 07/25/18 15:44 Urine Protein 30 mg/dL (NEGATIVE) H 07/25/18 15:44 Urine Glucose (UA) NEGATIVE mg/dL (NEGATIVE) 07/25/18 15:44 Urine Ketones NEGATIVE mg/dL (NEGATIVE) 07/25/18 15:44 Urine Blood TRACE (NEGATIVE) 07/25/18 15:44 Urine Nitrate NEGATIVE (NEGATIVE) 07/25/18 15:44 Urine Bilirubin NEGATIVE (NEGATIVE) 07/25/18 15:44 Urine Urobilinogen 0.2 E.U./dL (0.2 - 1.0) 07/25/18 15:44 Ur Leukocyte Esterase LARGE (NEGATIVE) H 07/25/18 15:44 Urine RBC 2-5 /hpf (0-5) H 07/25/18 15:44 Urine WBC 50-100 /hpf (0-5) H 07/25/18 15:44 Ur Epithelial Cells OCCASIONAL /lpf (FEW) 07/25/18 15:44 Urine Bacteria MODERATE /hpf (NONE SEEN) H 07/25/18 15:44 Stool Occult Blood POSITIVE (NEGATIVE) H 07/27/18 06:15 Blood Type O NEGATIVE 07/25/18 03:05 Antibody Screen NEGATIVE 07/25/18 03:05 - Physical Exam Vitals and I&O: Vital Signs Temp 98.4 F 07/27/18 20:00 Pulse 94 07/27/18 20:00 Resp 17 07/27/18 20:00 BP 130/85 07/27/18 20:00 Pulse Ox 95 07/27/18 20:00 Intake & Output 07/27/18 07/27/18 07/28/18 06:59 18:59 06:59 Intake Total 400 2058.333 Output Total 125 650 Balance 275 1408.333 Weight (lbs) 75.296 kg 75.296 kg Intake: Intake, IV Amount 100 1258.333 D5-0.45NS 1,000 ml @ 50 1258.333 mls/hr IV .Q20H [facility] Rx#: [id number] Levofloxacin 500mg/100mL 100 500 mg In 100 ml @ 100 mls/hr IV Q24HR [facility] Rx#: [id number] Oral 300 800 Output: Urine 100 650 Stool 25 Urine/Stool Mix 0 Other: Stool Characteristics Liquid Liquid [facility] Active Medications: Current Medications Acetaminophen (Tylenol) 650 mg PO Q4HR PRN PRN Reason: FEVER TEMP >101, AND MILD PAIN Stop: 09/23/18 09:01 Acetaminophen (Tylenol Extra Strength) 1,000 mg PO Q4HR PRN PRN Reason: Pain (Moderate) Stop: 09/23/18 09:01 Al Hydrox/Mg Hydrox/Simethicone (Maalox) 30 ml PO Q4H PRN PRN Reason: Abdominal Pain Stop: 09/23/18 09:01 Amitriptyline HCl (Elavil) 50 mg PO HS [facility] Stop: 09/23/18 20:59 Last Admin: 07/27/18 20:34 Dose: 50 mg Ascorbic Acid (Vitamin C) 500 mg PO DAILY [facility] Stop: 09/24/18 08:59 Last Admin: 07/27/18 08:29 Dose: 500 mg Aspirin (Aspirin Chewable) 81 mg PO DAILY [facility] Stop: 09/23/18 08:59 Last Admin: 07/27/18 08:29 Dose: 81 mg Baclofen (Lioresal) 10 mg PO Q8HR [facility] Stop: 09/23/18 12:59 Last Admin: 07/27/18 20:34 Dose: 10 mg Docusate Sodium (Colace) 100 mg PO DAILY [facility] Stop: 09/23/18 08:59 Last Admin: 07/27/18 08:29 Dose: Not Given Duloxetine HCl (Cymbalta) 30 mg PO DAILY [facility] Stop: 09/23/18 09:14 Last Admin: 07/27/18 08:29 Dose: 30 mg Hydromorphone HCl (Dilaudid) 1 mg IVP Q4HR PRN PRN Reason: Pain (Moderate) Stop: 09/23/18 02:55 Hydromorphone HCl (Dilaudid) 2 mg IVP Q4HR PRN PRN Reason: Pain (Severe) Stop: 09/23/18 02:55 Last Admin: 07/27/18 20:37 Dose: 2 mg Dextrose/Sodium Chloride (D5-0.45ns) 1,000 mls @ 50 mls/hr IV .Q20H [facility] Stop: 09/23/18 02:55 Last Infusion: 07/27/18 18:49 Dose: 50 mls/hr Levofloxacin (Levaquin Pb) 500 mg in 100 mls @ 100 mls/hr IV Q24HR [facility] Stop: 09/23/18 20:59 Last Admin: 07/27/18 20:34 Dose: 100 mls/hr Insulin Aspart (Novolog Insulin Sliding Scale) 0 units SUBQ ACHS [facility]; Protocol Stop: 09/23/18 11:29 Last Admin: 07/27/18 21:00 Dose: Not Given Lactobacillus Rhamnosus (Culturelle 15b) 1 each PO DAILY [facility] Stop: 09/24/18 08:59 Last Admin: 07/27/18 08:29 Dose: 1 each Lisinopril (Zestril) 10 mg PO DAILY [facility] Stop: 09/23/18 08:59 Last Admin: 07/27/18 08:29 Dose: 10 mg Ondansetron HCl (Zofran) 4 mg IV Q6H PRN PRN Reason: Nausea / Vomiting Stop: 09/23/18 09:01 Pregabalin (Lyrica) 150 mg PO BID [facility] Stop: 09/23/18 09:14 Last Admin: 07/27/18 16:11 Dose: 150 mg Vitamin D (Vitamin D3) 4,000 iu PO DAILY [facility] Stop: 09/23/18 09:14 Last Admin: 07/27/18 08:28 Dose: 4,000 iu General: Alert, No acute distress HEENT: Atraumatic Neck: no Thyromegaly Cardiovascular: Regular rate, Normal S1, Normal S2 Lungs: Clear to auscultation, Normal air movement Abdomen: Bowel sounds, Soft, Other (colostomy bag with brown stool) - Procedures Procedures: Procedures Procedure Code Date INSPECTION OF LOWER INTESTINAL TRACT, ENDO [id number] 05/20/18 Assessment/Plan - Problem List Patient Problems: All Active Problems Chronic pain syndrome (Acute) G89.4 Diabetes (Acute) E11.9 Gastrointestinal bleed (Acute) K92.2 HTN (hypertension) (Acute) I10 - Assessment Assessment: Assessment/Plan - Problem List Patient Problems: All Active Problems Chronic pain syndrome (Acute) G89.4 Diabetes (Acute) E11.9 Gastrointestinal bleed (Acute) K92.2 HTN (hypertension) (Acute) I10 - Plan Plan: 1. Gastrointestinal bleed (Acute) K92.2 H/H stable . No active bleeding. 2. Abdominal pain . Multifactorial including surgery/scars continue current management and add Bentyl 3. S/P diverting colostomy ? if he is a candidate for revision
--- NOTE | 2018-07-28 00:03 | Infectious Disease Prog Note ---
Infectious Disease Subjective - Review of Systems Service Date: 07/27/18 Subjective: There is no new change, no fever. Infectious Disease Objective - Results Result Diagrams: 07/28/18 08:00 07/28/18 08:00 Recent Labs: Laboratory Last Values WBC 9.9 Th/cmm (4.8-10.8) 07/26/18 05:30 RBC 5.25 Mil/cmm (4.30-5.70) 07/26/18 05:30 Hgb 15.1 gm/dL (12-16) 07/26/18 05:30 Hct 45.7 % (41.0-60) 07/26/18 05:30 MCV 87.1 fl (80-99) 07/26/18 05:30 MCH 28.7 pg (26.0-30.0) 07/26/18 05:30 MCHC Differential 33.0 pg (28.0-36.0) 07/26/18 05:30 RDW 14.8 % (11.5-20.0) 07/26/18 05:30 Plt Count 237 Th/cmm (150-400) 07/26/18 05:30 MPV 7.7 fl 07/26/18 05:30 Neutrophils % 67.1 % (40.0-80.0) 07/26/18 05:30 Lymphocytes % 16.1 % (20.0-50.0) L 07/26/18 05:30 Monocytes % 9.2 % (2.0-10.0) 07/26/18 05:30 Eosinophils % 5.7 % (0.0-5.0) H 07/26/18 05:30 Basophils % 1.9 % (0.0-2.0) 07/26/18 05:30 PT 9.6 SECONDS (9.5-11.5) 07/24/18 23:55 INR 0.92 (0.5-1.4) 07/24/18 23:55 PTT (Actin FS) 29.6 SECONDS (26.0-38.0) 07/24/18 23:55 Sodium 134 mEq/L (136-145) L 07/26/18 05:30 Potassium 3.8 mEq/L (3.5-5.1) 07/26/18 05:30 Chloride 104 mEq/L (98-107) 07/26/18 05:30 Carbon Dioxide 23.8 mEq/L (21.0-31.0) 07/26/18 05:30 Anion Gap 10.0 (7.0-16.0) 07/26/18 05:30 BUN 10 mg/dL (7-25) 07/26/18 05:30 Creatinine 0.6 mg/dL (0.7-1.3) L 07/26/18 05:30 Est GFR ( Amer) > 60.0 ml/min (>90) 07/26/18 05:30 Est GFR (Non-Af Amer) > 60.0 ml/min 07/26/18 05:30 BUN/Creatinine Ratio 16.7 07/26/18 05:30 Glucose 146 mg/dL (70-105) H 07/26/18 05:30 POC Glucose 156 MG/DL (70 - 105) H 07/27/18 20:53 Hemoglobin A1c % 8.1 % (4.0-6.0) H 07/25/18 06:05 Whole Bld Lactic Acid 1.00 mmol/L (0.60-1.99) 07/25/18 00:00 Calcium 9.1 mg/dL (8.6-10.3) 07/26/18 05:30 Total Bilirubin 0.4 mg/dL (0.3-1.0) 07/26/18 05:30 AST 15 U/L (13-39) 07/26/18 05:30 ALT 11 U/L (7-52) 07/26/18 05:30 Alkaline Phosphatase 59 U/L (34-104) 07/26/18 05:30 Total Protein 6.0 gm/dL (6.0-8.3) 07/26/18 05:30 Albumin 3.1 gm/dL (4.2-5.5) L 07/26/18 05:30 Globulin 2.9 gm/dL 07/26/18 05:30 Albumin/Globulin Ratio 1.1 (1.0-1.8) 07/26/18 05:30 Amylase 16 U/L (29-103) L 07/24/18 23:55 Lipase 10 U/L (11-82) L 07/24/18 23:55 Urine Source CLEAN C 07/25/18 15:44 Urine Color YELLOW 07/25/18 15:44 Urine Clarity CLOUDY (CLEAR) 07/25/18 15:44 Urine pH 6.0 (4.6 - 8.0) 07/25/18 15:44 Ur Specific [place] 1.020 (1.005-1.030) 07/25/18 15:44 Urine Protein 30 mg/dL (NEGATIVE) H 07/25/18 15:44 Urine Glucose (UA) NEGATIVE mg/dL (NEGATIVE) 07/25/18 15:44 Urine Ketones NEGATIVE mg/dL (NEGATIVE) 07/25/18 15:44 Urine Blood TRACE (NEGATIVE) 07/25/18 15:44 Urine Nitrate NEGATIVE (NEGATIVE) 07/25/18 15:44 Urine Bilirubin NEGATIVE (NEGATIVE) 07/25/18 15:44 Urine Urobilinogen 0.2 E.U./dL (0.2 - 1.0) 07/25/18 15:44 Ur Leukocyte Esterase LARGE (NEGATIVE) H 07/25/18 15:44 Urine RBC 2-5 /hpf (0-5) H 07/25/18 15:44 Urine WBC 50-100 /hpf (0-5) H 07/25/18 15:44 Ur Epithelial Cells OCCASIONAL /lpf (FEW) 07/25/18 15:44 Urine Bacteria MODERATE /hpf (NONE SEEN) H 07/25/18 15:44 Stool Occult Blood POSITIVE (NEGATIVE) H 07/27/18 06:15 Blood Type O NEGATIVE 07/25/18 03:05 Antibody Screen NEGATIVE 07/25/18 03:05 - Physical Exam Vitals and I&O: Vital Signs Temp 98.4 F 07/27/18 20:00 Pulse 94 07/27/18 20:00 Resp 17 07/27/18 22:30 BP 130/85 07/27/18 20:00 Pulse Ox 95 07/27/18 20:00 Intake & Output 07/27/18 07/27/18 07/28/18 06:59 18:59 06:59 Intake Total 400 2058.333 Output Total 125 650 Balance 275 1408.333 Weight (lbs) 75.296 kg 75.296 kg Intake: Intake, IV Amount 100 1258.333 D5-0.45NS 1,000 ml @ 50 1258.333 mls/hr IV .Q20H [facility] Rx#: [id number] Levofloxacin 500mg/100mL 100 500 mg In 100 ml @ 100 mls/hr IV Q24HR [facility] Rx#: [id number] Oral 300 800 Output: Urine 100 650 Stool 25 Urine/Stool Mix 0 Other: Stool Characteristics Liquid Liquid [facility] Active Medications: Current Medications Acetaminophen (Tylenol) 650 mg PO Q4HR PRN PRN Reason: FEVER TEMP >101, AND MILD PAIN Stop: 09/23/18 09:01 Acetaminophen (Tylenol Extra Strength) 1,000 mg PO Q4HR PRN PRN Reason: Pain (Moderate) Stop: 09/23/18 09:01 Al Hydrox/Mg Hydrox/Simethicone (Maalox) 30 ml PO Q4H PRN PRN Reason: Abdominal Pain Stop: 09/23/18 09:01 Amitriptyline HCl (Elavil) 50 mg PO HS [facility] Stop: 09/23/18 20:59 Last Admin: 07/27/18 20:34 Dose: 50 mg Ascorbic Acid (Vitamin C) 500 mg PO DAILY [facility] Stop: 09/24/18 08:59 Last Admin: 07/27/18 08:29 Dose: 500 mg Aspirin (Aspirin Chewable) 81 mg PO DAILY [facility] Stop: 09/23/18 08:59 Last Admin: 07/27/18 08:29 Dose: 81 mg Baclofen (Lioresal) 10 mg PO Q8HR [facility] Stop: 09/23/18 12:59 Last Admin: 07/27/18 20:34 Dose: 10 mg Docusate Sodium (Colace) 100 mg PO DAILY [facility] Stop: 09/23/18 08:59 Last Admin: 07/27/18 08:29 Dose: Not Given Duloxetine HCl (Cymbalta) 30 mg PO DAILY [facility] Stop: 09/23/18 09:14 Last Admin: 07/27/18 08:29 Dose: 30 mg Hydromorphone HCl (Dilaudid) 1 mg IVP Q4HR PRN PRN Reason: Pain (Moderate) Stop: 09/23/18 02:55 Hydromorphone HCl (Dilaudid) 2 mg IVP Q4HR PRN PRN Reason: Pain (Severe) Stop: 09/23/18 02:55 Last Admin: 07/27/18 20:37 Dose: 2 mg Dextrose/Sodium Chloride (D5-0.45ns) 1,000 mls @ 50 mls/hr IV .Q20H [facility] Stop: 09/23/18 02:55 Last Infusion: 07/27/18 18:49 Dose: 50 mls/hr Levofloxacin (Levaquin Pb) 500 mg in 100 mls @ 100 mls/hr IV Q24HR [facility] Stop: 09/23/18 20:59 Last Admin: 07/27/18 20:34 Dose: 100 mls/hr Insulin Aspart (Novolog Insulin Sliding Scale) 0 units SUBQ ACHS AMPARO; Protocol Stop: 09/23/18 11:29 Last Admin: 07/27/18 21:00 Dose: Not Given Lactobacillus Rhamnosus (Culturelle 15b) 1 each PO DAILY [facility] Stop: 09/24/18 08:59 Last Admin: 07/27/18 08:29 Dose: 1 each Lisinopril (Zestril) 10 mg PO DAILY [facility] Stop: 09/23/18 08:59 Last Admin: 07/27/18 08:29 Dose: 10 mg Ondansetron HCl (Zofran) 4 mg IV Q6H PRN PRN Reason: Nausea / Vomiting Stop: 09/23/18 09:01 Pregabalin (Lyrica) 150 mg PO BID [facility] Stop: 09/23/18 09:14 Last Admin: 07/27/18 16:11 Dose: 150 mg Vitamin D (Vitamin D3) 4,000 iu PO DAILY [facility] Stop: 09/23/18 09:14 Last Admin: 07/27/18 08:28 Dose: 4,000 iu General: no acute distress, well developed, well nourished HEENT: atraumatic, normocephalic, PERRLA Neck: supple, no thyromegaly Cardiovascular: S1S2, regular Lungs: clear to auscultation bilaterally, clear to percussion Abdomen: soft, no tender, no distended Extremities: other (BL BKA) Neurological: awake, alert, oriented - Procedures Procedures: Procedures Procedure Code Date INSPECTION OF LOWER INTESTINAL TRACT, ENDO [id number] 05/20/18 Infectious Disease Assmt/Plan - Problem List Patient Problems: All Active Problems Chronic pain syndrome (Acute) G89.4 Diabetes (Acute) E11.9 Gastrointestinal bleed (Acute) K92.2 HTN (hypertension) (Acute) I10 - Assessment Assessment: 1. Leukocytosis improved. 2. UTI. 3. Diabetes mellitus type 2. 4. Hypertension. 5. Colostomy malfunction. - Plan Plan: Continue levaquin.
[2018-07-28] MEDS: HYDROmorphone 2 mg/mL 1mL Vial IVP PRN ×6 (00:43→22:04)
[2018-07-28] MEDS: INSULIN ASPART SLIDING SCALE 100 UNITS/ML UNIT SUBQ SCH ×4 (06:32→22:05)
[2018-07-28 08:16] LABS: % BASOPHILS 1.5 % (0.0-2.0); % LYMPHOCYTES 15.7 % (20.0-50.0); % MONOCYTES 9.8 % (2.0-10.0); BASOPHILE ABSOLUTE 0.1 Th/cumm (0-0.2); EOSINOPHILE ABSOLUTE 0.4 Th/cmm (0.1-0.4); HEMATOCRIT 45.5 % (41.0-60); HEMOGLOBIN 15.3 gm/dL (12-16); LYMPHOCYTE ABSOLUTE 1.4 Th/cmm (1.5-3.0); MEAN CELL VOLUME 86.1 fl (80-99); MEAN CORPUSCULAR HEMOGLOBIN 28.9 pg (26.0-30.0); MEAN CORPUSCULAR HGB CONC 33.6 pg (28.0-36.0); MEAN PLATELET VOLUME 7.8 fl; MONOCYTE ABSOLUTE 0.9 Th/cmm (0.3-1.0); NEUTROPHILE ABSOLUTE 6.1 Th/cmm (1.8-8.0); PLATELET COUNT 238 Th/cmm (150-400); RED BLOOD COUNT 5.29 Mil/cmm (4.30-5.70); RED CELL DISTRIBUTION WIDTH 14.6 % (11.5-20.0); WHITE BLOOD COUNT 8.9 Th/cmm (4.8-10.8)
[2018-07-28] MEDS: Vitamin D3 2,000 IU SGL PO SCH (08:22)
[2018-07-28] MEDS: Multivitamin w/ Minerals Tab PO SCH (08:23)
[2018-07-28] MEDS: Lactobacillus Rhamnosus GG 15 Billion CFU CAP.SPRINK PO SCH (08:23)
[2018-07-28] MEDS: Aspirin 81mg Chewable Tab PO SCH (08:24)
[2018-07-28 08:42] LABS: ANION GAP 9.5 (7.0-16.0); BUN - UREA NITROGEN 10 mg/dL (7-25); CALCIUM SERUM 8.8 mg/dL (8.6-10.3); CARBON DIOXIDE 26.4 mEq/L (21.0-31.0); CHLORIDE 104 mEq/L (98-107); CREATININE - SERUM 0.7 mg/dL (0.7-1.3); GFR AFRICAN-AMERICAN > 60.0 ml/min (>90); GFR NON AFRICAN-AMERICAN > 60.0 ml/min; GLUCOSE 137 mg/dL (70-105); POTASSIUM SERUM 3.9 mEq/L (3.5-5.1); SODIUM SERUM 136 mEq/L (136-145)
[2018-07-28] MEDS: D5-0.45NS 1,000 ML IV SCH (10:41)
--- NOTE | 2018-07-28 15:38 | GI Progress Note ---
Subjective - Review of Systems Subjective: NO GI BLEEDING Objective - Results Result Diagrams: 07/28/18 08:00 07/28/18 08:00 Recent Labs: Laboratory Last Values WBC 8.9 Th/cmm (4.8-10.8) 07/28/18 08:00 RBC 5.29 Mil/cmm (4.30-5.70) 07/28/18 08:00 Hgb 15.3 gm/dL (12-16) 07/28/18 08:00 Hct 45.5 % (41.0-60) 07/28/18 08:00 MCV 86.1 fl (80-99) 07/28/18 08:00 MCH 28.9 pg (26.0-30.0) 07/28/18 08:00 MCHC Differential 33.6 pg (28.0-36.0) 07/28/18 08:00 RDW 14.6 % (11.5-20.0) 07/28/18 08:00 Plt Count 238 Th/cmm (150-400) 07/28/18 08:00 MPV 7.8 fl 07/28/18 08:00 Neutrophils % 69.0 % (40.0-80.0) 07/28/18 08:00 Lymphocytes % 15.7 % (20.0-50.0) L 07/28/18 08:00 Monocytes % 9.8 % (2.0-10.0) 07/28/18 08:00 Eosinophils % 4.0 % (0.0-5.0) 07/28/18 08:00 Basophils % 1.5 % (0.0-2.0) 07/28/18 08:00 PT 9.6 SECONDS (9.5-11.5) 07/24/18 23:55 INR 0.92 (0.5-1.4) 07/24/18 23:55 PTT (Actin FS) 29.6 SECONDS (26.0-38.0) 07/24/18 23:55 Sodium 136 mEq/L (136-145) 07/28/18 08:00 Potassium 3.9 mEq/L (3.5-5.1) 07/28/18 08:00 Chloride 104 mEq/L (98-107) 07/28/18 08:00 Carbon Dioxide 26.4 mEq/L (21.0-31.0) 07/28/18 08:00 Anion Gap 9.5 (7.0-16.0) 07/28/18 08:00 BUN 10 mg/dL (7-25) 07/28/18 08:00 Creatinine 0.7 mg/dL (0.7-1.3) 07/28/18 08:00 Est GFR ( Amer) > 60.0 ml/min (>90) 07/28/18 08:00 Est GFR (Non-Af Amer) > 60.0 ml/min 07/28/18 08:00 BUN/Creatinine Ratio 14.3 07/28/18 08:00 Glucose 137 mg/dL (70-105) H 07/28/18 08:00 POC Glucose 152 MG/DL (70 - 105) H 07/28/18 11:07 Hemoglobin A1c % 8.1 % (4.0-6.0) H 07/25/18 06:05 Whole Bld Lactic Acid 1.00 mmol/L (0.60-1.99) 07/25/18 00:00 Calcium 8.8 mg/dL (8.6-10.3) 07/28/18 08:00 Total Bilirubin 0.4 mg/dL (0.3-1.0) 07/26/18 05:30 AST 15 U/L (13-39) 07/26/18 05:30 ALT 11 U/L (7-52) 07/26/18 05:30 Alkaline Phosphatase 59 U/L (34-104) 07/26/18 05:30 Total Protein 6.0 gm/dL (6.0-8.3) 07/26/18 05:30 Albumin 3.1 gm/dL (4.2-5.5) L 07/26/18 05:30 Globulin 2.9 gm/dL 07/26/18 05:30 Albumin/Globulin Ratio 1.1 (1.0-1.8) 07/26/18 05:30 Amylase 16 U/L (29-103) L 07/24/18 23:55 Lipase 10 U/L (11-82) L 07/24/18 23:55 Urine Source CLEAN C 07/25/18 15:44 Urine Color YELLOW 07/25/18 15:44 Urine Clarity CLOUDY (CLEAR) 07/25/18 15:44 Urine pH 6.0 (4.6 - 8.0) 07/25/18 15:44 Ur Specific [place] 1.020 (1.005-1.030) 07/25/18 15:44 Urine Protein 30 mg/dL (NEGATIVE) H 07/25/18 15:44 Urine Glucose (UA) NEGATIVE mg/dL (NEGATIVE) 07/25/18 15:44 Urine Ketones NEGATIVE mg/dL (NEGATIVE) 07/25/18 15:44 Urine Blood TRACE (NEGATIVE) 07/25/18 15:44 Urine Nitrate NEGATIVE (NEGATIVE) 07/25/18 15:44 Urine Bilirubin NEGATIVE (NEGATIVE) 07/25/18 15:44 Urine Urobilinogen 0.2 E.U./dL (0.2 - 1.0) 07/25/18 15:44 Ur Leukocyte Esterase LARGE (NEGATIVE) H 07/25/18 15:44 Urine RBC 2-5 /hpf (0-5) H 07/25/18 15:44 Urine WBC 50-100 /hpf (0-5) H 07/25/18 15:44 Ur Epithelial Cells OCCASIONAL /lpf (FEW) 07/25/18 15:44 Urine Bacteria MODERATE /hpf (NONE SEEN) H 07/25/18 15:44 Stool Occult Blood POSITIVE (NEGATIVE) H 07/27/18 06:15 Blood Type O NEGATIVE 07/25/18 03:05 Antibody Screen NEGATIVE 07/25/18 03:05 - Physical Exam Vitals and I&O: Vital Signs Temp 96.4 F 07/28/18 11:58 Pulse 78 07/28/18 11:58 Resp 18 07/28/18 11:58 BP 121/76 07/28/18 11:58 Pulse Ox 94 07/28/18 11:58 Intake & Output 07/27/18 07/28/18 07/28/18 18:59 06:59 18:59 Intake Total 2058.333 450 741.667 Output Total 650 Balance 1408.333 450 741.667 Weight (lbs) 75.296 kg 75.296 kg Intake: Intake, IV Amount 1258.333 741.667 D5-0.45NS 1,000 ml @ 50 1258.333 741.667 mls/hr IV .Q20H [facility] Rx#: [id number] Oral 800 450 Output: Urine 650 Urine/Stool Mix 0 Other: Stool Characteristics Liquid Liquid Liquid Weight Source [facility] Active Medications: Current Medications Acetaminophen (Tylenol) 650 mg PO Q4HR PRN PRN Reason: FEVER TEMP >101, AND MILD PAIN Stop: 09/23/18 09:01 Acetaminophen (Tylenol Extra Strength) 1,000 mg PO Q4HR PRN PRN Reason: Pain (Moderate) Stop: 09/23/18 09:01 Al Hydrox/Mg Hydrox/Simethicone (Maalox) 30 ml PO Q4H PRN PRN Reason: Abdominal Pain Stop: 09/23/18 09:01 Amitriptyline HCl (Elavil) 50 mg PO HS [facility] Stop: 09/23/18 20:59 Last Admin: 07/27/18 20:34 Dose: 50 mg Ascorbic Acid (Vitamin C) 500 mg PO DAILY [facility] Stop: 09/24/18 08:59 Last Admin: 07/28/18 08:23 Dose: 500 mg Aspirin (Aspirin Chewable) 81 mg PO DAILY [facility] Stop: 09/23/18 08:59 Last Admin: 07/28/18 08:24 Dose: 81 mg Baclofen (Lioresal) 10 mg PO Q8HR [facility] Stop: 09/23/18 12:59 Last Admin: 07/28/18 13:16 Dose: 10 mg Docusate Sodium (Colace) 100 mg PO DAILY [facility] Stop: 09/23/18 08:59 Last Admin: 07/28/18 08:24 Dose: Not Given Duloxetine HCl (Cymbalta) 30 mg PO DAILY [facility] Stop: 09/23/18 09:14 Last Admin: 07/28/18 08:24 Dose: 30 mg Hydromorphone HCl (Dilaudid) 1 mg IVP Q4HR PRN PRN Reason: Pain (Moderate) Stop: 09/23/18 02:55 Hydromorphone HCl (Dilaudid) 2 mg IVP Q4HR PRN PRN Reason: Pain (Severe) Stop: 09/23/18 02:55 Last Admin: 07/28/18 14:03 Dose: 2 mg Dextrose/Sodium Chloride (D5-0.45ns) 1,000 mls @ 50 mls/hr IV .Q20H [facility] Stop: 09/23/18 02:55 Last Admin: 07/28/18 10:41 Dose: 50 mls/hr Levofloxacin (Levaquin Pb) 500 mg in 100 mls @ 100 mls/hr IV Q24HR [facility] Stop: 09/23/18 20:59 Last Admin: 07/27/18 20:34 Dose: 100 mls/hr Insulin Aspart (Novolog Insulin Sliding Scale) 0 units SUBQ ACHS [facility]; Protocol Stop: 09/23/18 11:29 Last Admin: 07/28/18 11:44 Dose: Not Given Lactobacillus Rhamnosus (Culturelle 15b) 1 each PO DAILY [facility] Stop: 09/24/18 08:59 Last Admin: 07/28/18 08:23 Dose: 1 each Lisinopril (Zestril) 10 mg PO DAILY [facility] Stop: 09/23/18 08:59 Last Admin: 07/28/18 08:23 Dose: 10 mg Ondansetron HCl (Zofran) 4 mg IV Q6H PRN PRN Reason: Nausea / Vomiting Stop: 09/23/18 09:01 Pregabalin (Lyrica) 150 mg PO BID [facility] Stop: 09/23/18 09:14 Last Admin: 07/28/18 08:24 Dose: 150 mg Vitamin D (Vitamin D3) 4,000 iu PO DAILY [facility] Stop: 09/23/18 09:14 Last Admin: 07/28/18 08:22 Dose: 4,000 iu General: Alert, No acute distress HEENT: Atraumatic Neck: no Thyromegaly Cardiovascular: Regular rate, Normal S1, Normal S2 Lungs: Clear to auscultation, Normal air movement Abdomen: Bowel sounds, Soft, Other (colostomy bag with brown stool) - Procedures Procedures: Procedures Procedure Code Date INSPECTION OF LOWER INTESTINAL TRACT, ENDO [id number] 05/20/18 Assessment/Plan - Problem List Patient Problems: All Active Problems Chronic pain syndrome (Acute) G89.4 Diabetes (Acute) E11.9 Gastrointestinal bleed (Acute) K92.2 HTN (hypertension) (Acute) I10 - Assessment Assessment: 57 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
[2018-07-28] MEDS: Levofloxacin 500mg/100mL 500 MG/100 ML BAG IV SCH (21:22)
[2018-07-29] MEDS: HYDROmorphone 2 mg/mL 1mL Vial IVP PRN ×5 (02:08→21:36)
[2018-07-29] MEDS: D5-0.45NS 1,000 ML IV SCH (06:23)
[2018-07-29] MEDS: INSULIN ASPART SLIDING SCALE 100 UNITS/ML UNIT SUBQ SCH ×4 (06:36→21:26)
[2018-07-29] MEDS: Multivitamin w/ Minerals Tab PO SCH (10:14)
[2018-07-29] MEDS: Lactobacillus Rhamnosus GG 15 Billion CFU CAP.SPRINK PO SCH (10:15)
[2018-07-29] MEDS: Aspirin 81mg Chewable Tab PO SCH (10:15)
[2018-07-29] MEDS: Vitamin D3 2,000 IU SGL PO SCH (10:15)
[2018-07-29] MEDS ORDERED: Probiotic Screen MC PRN (11:42)
[2018-07-29] MEDS ORDERED: Lactobacillus Rhamnosus GG 15 Billion CFU CAP.SPRINK PO SCH (14:00)
[2018-07-29] MEDS ORDERED: Diatrizoate Meglumine/Diatri 30 mL Sol PO ONE (14:21)
--- NOTE | 2018-07-29 14:34 | GI Progress Note ---
Subjective - Review of Systems Subjective: NO GI BLEEDING PER STAFF PT HAS SOME VAGUE ABD PAIN Objective - Results Result Diagrams: 07/28/18 08:00 07/28/18 08:00 Recent Labs: Laboratory Last Values WBC 8.9 Th/cmm (4.8-10.8) 07/28/18 08:00 RBC 5.29 Mil/cmm (4.30-5.70) 07/28/18 08:00 Hgb 15.3 gm/dL (12-16) 07/28/18 08:00 Hct 45.5 % (41.0-60) 07/28/18 08:00 MCV 86.1 fl (80-99) 07/28/18 08:00 MCH 28.9 pg (26.0-30.0) 07/28/18 08:00 MCHC Differential 33.6 pg (28.0-36.0) 07/28/18 08:00 RDW 14.6 % (11.5-20.0) 07/28/18 08:00 Plt Count 238 Th/cmm (150-400) 07/28/18 08:00 MPV 7.8 fl 07/28/18 08:00 Neutrophils % 69.0 % (40.0-80.0) 07/28/18 08:00 Lymphocytes % 15.7 % (20.0-50.0) L 07/28/18 08:00 Monocytes % 9.8 % (2.0-10.0) 07/28/18 08:00 Eosinophils % 4.0 % (0.0-5.0) 07/28/18 08:00 Basophils % 1.5 % (0.0-2.0) 07/28/18 08:00 PT 9.6 SECONDS (9.5-11.5) 07/24/18 23:55 INR 0.92 (0.5-1.4) 07/24/18 23:55 PTT (Actin FS) 29.6 SECONDS (26.0-38.0) 07/24/18 23:55 Sodium 136 mEq/L (136-145) 07/28/18 08:00 Potassium 3.9 mEq/L (3.5-5.1) 07/28/18 08:00 Chloride 104 mEq/L (98-107) 07/28/18 08:00 Carbon Dioxide 26.4 mEq/L (21.0-31.0) 07/28/18 08:00 Anion Gap 9.5 (7.0-16.0) 07/28/18 08:00 BUN 10 mg/dL (7-25) 07/28/18 08:00 Creatinine 0.7 mg/dL (0.7-1.3) 07/28/18 08:00 Est GFR ( Amer) > 60.0 ml/min (>90) 07/28/18 08:00 Est GFR (Non-Af Amer) > 60.0 ml/min 07/28/18 08:00 BUN/Creatinine Ratio 14.3 07/28/18 08:00 Glucose 137 mg/dL (70-105) H 07/28/18 08:00 POC Glucose 132 MG/DL (70 - 105) H 07/29/18 12:07 Hemoglobin A1c % 8.1 % (4.0-6.0) H 07/25/18 06:05 Whole Bld Lactic Acid 1.00 mmol/L (0.60-1.99) 07/25/18 00:00 Calcium 8.8 mg/dL (8.6-10.3) 07/28/18 08:00 Total Bilirubin 0.4 mg/dL (0.3-1.0) 07/26/18 05:30 AST 15 U/L (13-39) 07/26/18 05:30 ALT 11 U/L (7-52) 07/26/18 05:30 Alkaline Phosphatase 59 U/L (34-104) 07/26/18 05:30 Total Protein 6.0 gm/dL (6.0-8.3) 07/26/18 05:30 Albumin 3.1 gm/dL (4.2-5.5) L 07/26/18 05:30 Globulin 2.9 gm/dL 07/26/18 05:30 Albumin/Globulin Ratio 1.1 (1.0-1.8) 07/26/18 05:30 Amylase 16 U/L (29-103) L 07/24/18 23:55 Lipase 10 U/L (11-82) L 07/24/18 23:55 Urine Source CLEAN C 07/25/18 15:44 Urine Color YELLOW 09/01/18 15:44 Urine Clarity CLOUDY (CLEAR) 07/25/18 15:44 Urine pH 6.0 (4.6 - 8.0) 07/25/18 15:44 Ur Specific [place] 1.020 (1.005-1.030) 07/25/18 15:44 Urine Protein 30 mg/dL (NEGATIVE) H 07/25/18 15:44 Urine Glucose (UA) NEGATIVE mg/dL (NEGATIVE) 07/25/18 15:44 Urine Ketones NEGATIVE mg/dL (NEGATIVE) 07/25/18 15:44 Urine Blood TRACE (NEGATIVE) 07/25/18 15:44 Urine Nitrate NEGATIVE (NEGATIVE) 07/25/18 15:44 Urine Bilirubin NEGATIVE (NEGATIVE) 07/25/18 15:44 Urine Urobilinogen 0.2 E.U./dL (0.2 - 1.0) 07/25/18 15:44 Ur Leukocyte Esterase LARGE (NEGATIVE) H 07/25/18 15:44 Urine RBC 2-5 /hpf (0-5) H 07/25/18 15:44 Urine WBC 50-100 /hpf (0-5) H 07/25/18 15:44 Ur Epithelial Cells OCCASIONAL /lpf (FEW) 07/25/18 15:44 Urine Bacteria MODERATE /hpf (NONE SEEN) H 07/25/18 15:44 Stool Occult Blood POSITIVE (NEGATIVE) H 07/27/18 06:15 Blood Type O NEGATIVE 07/25/18 03:05 Antibody Screen NEGATIVE 07/25/18 03:05 - Physical Exam Vitals and I&O: Vital Signs Temp 96.9 F 07/29/18 11:59 Pulse 65 07/29/18 11:59 Resp 19 07/29/18 11:59 BP 154/87 07/29/18 11:59 Pulse Ox 92 07/29/18 11:59 Intake & Output 07/28/18 07/29/18 07/29/18 18:59 06:59 18:59 Intake Total 3193.529 1235 1000 Output Total 1500 1230 Balance 41.667 1085 -230 Weight (lbs) 75.296 kg 75.614 kg Intake: Intake, IV Amount 148.894 4244 D5-0.45NS 1,000 ml @ 50 741.667 985 mls/hr IV .Q20H [facility] Rx#: [id number] Levofloxacin 500mg/100mL 100 500 mg In 100 ml @ 100 mls/hr IV Q24HR [facility] Rx#: [id number] Oral 800 1000 Output: Urine 1500 1200 Urine/Stool Mix 0 Other 30 Other: Stool Characteristics Liquid Soft Soft Brown Brown Green Weight Source Bedscale Bedscale Active Medications: Current Medications Acetaminophen (Tylenol) 650 mg PO Q4HR PRN PRN Reason: FEVER TEMP >101, AND MILD PAIN Stop: 09/23/18 09:01 Acetaminophen (Tylenol Extra Strength) 1,000 mg PO Q4HR PRN PRN Reason: Pain (Moderate) Stop: 09/23/18 09:01 Al Hydrox/Mg Hydrox/Simethicone (Maalox) 30 ml PO Q4H PRN PRN Reason: Abdominal Pain Stop: 09/23/18 09:01 Amitriptyline HCl (Elavil) 50 mg PO HS [facility] Stop: 09/23/18 20:59 Last Admin: 07/28/18 21:22 Dose: 50 mg Ascorbic Acid (Vitamin C) 500 mg PO DAILY [facility] Stop: 09/24/18 08:59 Last Admin: 07/29/18 10:16 Dose: 500 mg Aspirin (Aspirin Chewable) 81 mg PO DAILY [facility] Stop: 09/23/18 08:59 Last Admin: 07/29/18 10:15 Dose: 81 mg Baclofen (Lioresal) 10 mg PO Q8HR [facility] Stop: 09/23/18 12:59 Last Admin: 07/29/18 12:09 Dose: 10 mg Docusate Sodium (Colace) 100 mg PO DAILY [facility] Stop: 09/23/18 08:59 Last Admin: 07/29/18 10:16 Dose: Not Given Duloxetine HCl (Cymbalta) 30 mg PO DAILY [facility] Stop: 09/23/18 09:14 Last Admin: 07/29/18 10:15 Dose: 30 mg Hydromorphone HCl (Dilaudid) 1 mg IVP Q4HR PRN PRN Reason: Pain (Moderate) Stop: 09/23/18 02:55 Hydromorphone HCl (Dilaudid) 2 mg IVP Q4HR PRN PRN Reason: Pain (Severe) Stop: 09/23/18 02:55 Last Admin: 07/29/18 14:06 Dose: 2 mg Dextrose/Sodium Chloride (D5-0.45ns) 1,000 mls @ 50 mls/hr IV .Q20H [facility] Stop: 09/23/18 02:55 Last Admin: 07/29/18 06:23 Dose: 50 mls/hr Levofloxacin (Levaquin Pb) 500 mg in 100 mls @ 100 mls/hr IV Q24HR [facility] Stop: 09/23/18 20:59 Last Infusion: 07/28/18 23:30 Dose: Infused Insulin Aspart (Novolog Insulin Sliding Scale) 0 units SUBQ ACHS [facility]; Protocol Stop: 09/23/18 11:29 Last Admin: 07/29/18 12:18 Dose: Not Given Lactobacillus Rhamnosus (Culturelle 15b) 1 each PO DAILY [facility] Stop: 09/24/18 08:59 Last Admin: 07/29/18 10:15 Dose: 1 each Lisinopril (Zestril) 10 mg PO DAILY [facility] Stop: 09/23/18 08:59 Last Admin: 07/29/18 10:18 Dose: 10 mg Miscellaneous (Probiotic Screen) 1 ea MC PRN PRN PRN Reason: PROTOCOL Stop: 09/27/18 11:41 Ondansetron HCl (Zofran) 4 mg IV Q6H PRN PRN Reason: Nausea / Vomiting Stop: 09/23/18 09:01 Pregabalin (Lyrica) 150 mg PO BID [facility] Stop: 09/23/18 09:14 Last Admin: 07/29/18 10:15 Dose: 150 mg Vitamin D (Vitamin D3) 4,000 iu PO DAILY [facility] Stop: 09/23/18 09:14 Last Admin: 07/29/18 10:15 Dose: 4,000 iu General: Alert, No acute distress HEENT: Atraumatic Neck: no Thyromegaly Cardiovascular: Regular rate, Normal S1, Normal S2 Lungs: Clear to auscultation, Normal air movement Abdomen: Bowel sounds, Soft, Other (colostomy bag with brown stool) - Procedures Procedures: Procedures Procedure Code Date INSPECTION OF LOWER INTESTINAL TRACT, ENDO [id number] 05/20/18 Assessment/Plan - Problem List Patient Problems: All Active Problems Chronic pain syndrome (Acute) G89.4 Diabetes (Acute) E11.9 Gastrointestinal bleed (Acute) K92.2 HTN (hypertension) (Acute) I10 - Assessment Assessment: 57 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
--- NOTE | 2018-07-29 15:48 | General Progress Note ---
Subjective - Review of Systems Events since last encounter: patient in no distres per staff patient was c/o abd pain Objective - Results Result Diagrams: 07/28/18 08:00 07/28/18 08:00 Recent Labs: Laboratory Last Values WBC 8.9 Th/cmm (4.8-10.8) 07/28/18 08:00 RBC 5.29 Mil/cmm (4.30-5.70) 07/28/18 08:00 Hgb 15.3 gm/dL (12-16) 07/28/18 08:00 Hct 45.5 % (41.0-60) 07/28/18 08:00 MCV 86.1 fl (80-99) 07/28/18 08:00 MCH 28.9 pg (26.0-30.0) 07/28/18 08:00 MCHC Differential 33.6 pg (28.0-36.0) 07/28/18 08:00 RDW 14.6 % (11.5-20.0) 07/28/18 08:00 Plt Count 238 Th/cmm (150-400) 07/28/18 08:00 MPV 7.8 fl 07/28/18 08:00 Neutrophils % 69.0 % (40.0-80.0) 07/28/18 08:00 Lymphocytes % 15.7 % (20.0-50.0) L 07/28/18 08:00 Monocytes % 9.8 % (2.0-10.0) 07/28/18 08:00 Eosinophils % 4.0 % (0.0-5.0) 07/28/18 08:00 Basophils % 1.5 % (0.0-2.0) 07/28/18 08:00 PT 9.6 SECONDS (9.5-11.5) 07/24/18 23:55 INR 0.92 (0.5-1.4) 07/24/18 23:55 PTT (Actin FS) 29.6 SECONDS (26.0-38.0) 07/24/18 23:55 Sodium 136 mEq/L (136-145) 07/28/18 08:00 Potassium 3.9 mEq/L (3.5-5.1) 07/28/18 08:00 Chloride 104 mEq/L (98-107) 07/28/18 08:00 Carbon Dioxide 26.4 mEq/L (21.0-31.0) 07/28/18 08:00 Anion Gap 9.5 (7.0-16.0) 07/28/18 08:00 BUN 10 mg/dL (7-25) 07/28/18 08:00 Creatinine 0.7 mg/dL (0.7-1.3) 07/28/18 08:00 Est GFR ( Amer) > 60.0 ml/min (>90) 07/28/18 08:00 Est GFR (Non-Af Amer) > 60.0 ml/min 07/28/18 08:00 BUN/Creatinine Ratio 14.3 07/28/18 08:00 Glucose 137 mg/dL (70-105) H 07/28/18 08:00 POC Glucose 132 MG/DL (70 - 105) H 07/29/18 12:07 Hemoglobin A1c % 8.1 % (4.0-6.0) H 07/25/18 06:05 Whole Bld Lactic Acid 1.00 mmol/L (0.60-1.99) 07/25/18 00:00 Calcium 8.8 mg/dL (8.6-10.3) 07/28/18 08:00 Total Bilirubin 0.4 mg/dL (0.3-1.0) 07/26/18 05:30 AST 15 U/L (13-39) 07/26/18 05:30 ALT 11 U/L (7-52) 07/26/18 05:30 Alkaline Phosphatase 59 U/L (34-104) 07/26/18 05:30 Total Protein 6.0 gm/dL (6.0-8.3) 07/26/18 05:30 Albumin 3.1 gm/dL (4.2-5.5) L 07/26/18 05:30 Globulin 2.9 gm/dL 07/26/18 05:30 Albumin/Globulin Ratio 1.1 (1.0-1.8) 07/26/18 05:30 Amylase 16 U/L (29-103) L 07/24/18 23:55 Lipase 10 U/L (11-82) L 07/24/18 23:55 Urine Source CLEAN C 07/25/18 15:44 Urine Color YELLOW 07/25/18 15:44 Urine Clarity CLOUDY (CLEAR) 07/25/18 15:44 Urine pH 6.0 (4.6 - 8.0) 07/25/18 15:44 Ur Specific [place] 1.020 (1.005-1.030) 07/25/18 15:44 Urine Protein 30 mg/dL (NEGATIVE) H 07/25/18 15:44 Urine Glucose (UA) NEGATIVE mg/dL (NEGATIVE) 07/25/18 15:44 Urine Ketones NEGATIVE mg/dL (NEGATIVE) 07/25/18 15:44 Urine Blood TRACE (NEGATIVE) 07/25/18 15:44 Urine Nitrate NEGATIVE (NEGATIVE) 07/25/18 15:44 Urine Bilirubin NEGATIVE (NEGATIVE) 07/25/18 15:44 Urine Urobilinogen 0.2 E.U./dL (0.2 - 1.0) 07/25/18 15:44 Ur Leukocyte Esterase LARGE (NEGATIVE) H 07/25/18 15:44 Urine RBC 2-5 /hpf (0-5) H 07/25/18 15:44 Urine WBC 50-100 /hpf (0-5) H 07/25/18 15:44 Ur Epithelial Cells OCCASIONAL /lpf (FEW) 07/25/18 15:44 Urine Bacteria MODERATE /hpf (NONE SEEN) H 07/25/18 15:44 Stool Occult Blood POSITIVE (NEGATIVE) H 07/27/18 06:15 Blood Type O NEGATIVE 07/25/18 03:05 Antibody Screen NEGATIVE 07/25/18 03:05 - Physical Exam Vitals and I&O: Vital Signs Temp 96.9 F 07/29/18 11:59 Pulse 65 07/29/18 11:59 Resp 19 07/29/18 11:59 BP 154/87 07/29/18 11:59 Pulse Ox 92 07/29/18 11:59 Intake & Output 07/28/18 07/29/18 07/29/18 18:59 06:59 18:59 Intake Total 5337.036 0540 1000 Output Total 1500 1230 Balance 41.667 1085 -230 Weight (lbs) 75.296 kg 75.614 kg Intake: Intake, IV Amount 077.227 5166 D5-0.45NS 1,000 ml @ 50 741.667 985 mls/hr IV .Q20H [facility] Rx#: [id number] Levofloxacin 500mg/100mL 100 500 mg In 100 ml @ 100 mls/hr IV Q24HR [facility] Rx#: [id number] Oral 800 1000 Output: Urine 1500 1200 Urine/Stool Mix 0 Other 30 Other: Stool Characteristics Liquid Soft Soft Brown Brown Green Weight Source Bedscale Bedscale Active Medications: Current Medications Acetaminophen (Tylenol) 650 mg PO Q4HR PRN PRN Reason: FEVER TEMP >101, AND MILD PAIN Stop: 09/23/18 09:01 Acetaminophen (Tylenol Extra Strength) 1,000 mg PO Q4HR PRN PRN Reason: Pain (Moderate) Stop: 09/23/18 09:01 Al Hydrox/Mg Hydrox/Simethicone (Maalox) 30 ml PO Q4H PRN PRN Reason: Abdominal Pain Stop: 09/23/18 09:01 Amitriptyline HCl (Elavil) 50 mg PO HS [facility] Stop: 09/23/18 20:59 Last Admin: 07/28/18 21:22 Dose: 50 mg Ascorbic Acid (Vitamin C) 500 mg PO DAILY [facility] Stop: 09/24/18 08:59 Last Admin: 07/29/18 10:16 Dose: 500 mg Aspirin (Aspirin Chewable) 81 mg PO DAILY [facility] Stop: 09/23/18 08:59 Last Admin: 07/29/18 10:15 Dose: 81 mg Baclofen (Lioresal) 10 mg PO Q8HR [facility] Stop: 09/23/18 12:59 Last Admin: 07/29/18 12:09 Dose: 10 mg Docusate Sodium (Colace) 100 mg PO DAILY [facility] Stop: 09/23/18 08:59 Last Admin: 07/29/18 10:16 Dose: Not Given Duloxetine HCl (Cymbalta) 30 mg PO DAILY [facility] Stop: 09/23/18 09:14 Last Admin: 07/29/18 10:15 Dose: 30 mg Hydromorphone HCl (Dilaudid) 1 mg IVP Q4HR PRN PRN Reason: Pain (Moderate) Stop: 09/23/18 02:55 Hydromorphone HCl (Dilaudid) 2 mg IVP Q4HR PRN PRN Reason: Pain (Severe) Stop: 09/23/18 02:55 Last Admin: 07/29/18 14:06 Dose: 2 mg Dextrose/Sodium Chloride (D5-0.45ns) 1,000 mls @ 50 mls/hr IV .Q20H [facility] Stop: 09/23/18 02:55 Last Admin: 07/29/18 06:23 Dose: 50 mls/hr Levofloxacin (Levaquin Pb) 500 mg in 100 mls @ 100 mls/hr IV Q24HR [facility] Stop: 09/23/18 20:59 Last Infusion: 07/28/18 23:30 Dose: Infused Insulin Aspart (Novolog Insulin Sliding Scale) 0 units SUBQ ACHS [facility]; Protocol Stop: 09/23/18 11:29 Last Admin: 07/29/18 12:18 Dose: Not Given Lactobacillus Rhamnosus (Culturelle 15b) 1 each PO DAILY [facility] Stop: 09/24/18 08:59 Last Admin: 07/29/18 10:15 Dose: 1 each Lisinopril (Zestril) 10 mg PO DAILY [facility] Stop: 09/23/18 08:59 Last Admin: 07/29/18 10:18 Dose: 10 mg Miscellaneous (Probiotic Screen) 1 ea MC PRN PRN PRN Reason: PROTOCOL Stop: 09/27/18 11:41 Ondansetron HCl (Zofran) 4 mg IV Q6H PRN PRN Reason: Nausea / Vomiting Stop: 09/23/18 09:01 Pregabalin (Lyrica) 150 mg PO BID [facility] Stop: 09/23/18 09:14 Last Admin: 07/29/18 10:15 Dose: 150 mg Vitamin D (Vitamin D3) 4,000 iu PO DAILY [facility] Stop: 09/23/18 09:14 Last Admin: 07/29/18 10:15 Dose: 4,000 iu General: Alert, No acute distress HEENT: Atraumatic Neck: no Thyromegaly Cardiovascular: Regular rate, Normal S1, Normal S2 Lungs: Clear to auscultation, Normal air movement Abdomen: Bowel sounds, Soft, Other (colostomy bag with brown stool) - Procedures Procedures: Procedures Procedure Code Date INSPECTION OF LOWER INTESTINAL TRACT, ENDO [id number] 05/20/18 Assessment/Plan - Problem List Patient Problems: All Active Problems Chronic pain syndrome (Acute) G89.4 Diabetes (Acute) E11.9 Gastrointestinal bleed (Acute) K92.2 HTN (hypertension) (Acute) I10 - Plan Plan: as per order sheet Nutritional Asmnt/Malnutr-PDOC - Dietary Evaluation Malnutrition Findings (Please click <Entered> for more info): Nutritional Asmnt/Malnutrition Start: 07/28/18 16: 47 Text: Status: Complete Freq: Protocol: Document 07/28/18 16:47 LCKRISTIG (Rec: 07/28/18 17:05 [email or web address]) Nutritional Asmnt/Malnutrition Patient General Information Nutritional Screening Moderate Risk Consult Diagnosis hyponatremia, bleeding at colostomy Pertinent Medical Hx/Surgical Hx bilateral AKA, HTN, DM, chronic pain syndrom, colostomy Subjective Information Consult received for stage IV pressure ulcer right buttocks. Pt seen lying in bed at time of visit, awake, not willing to talk. Pt reported poor appetite, abdominal pain, not interested in infomation of diabetic diet. Per EMR, PO intake 45-75%. Glucose 232 at admission noted. Per nurse, no more bleeding, stool OB possitive. Current Diet Order/ Nutrition Support CCHO 60gm, 2 gram sodium Pertinent Medications vit C, D5-0.45ns, olace, novolog, culturelle, levaquin, vit D3 Pertinent Labs 9 glucose 137, POC 126-224 9/2 Na 134, Cr 0.6, Glucose 146, POC 131-159 9/1 Cr 0.6, glucose 176, A1c 8 .1, POC 125-140 Nutritional Hx/Data Height 1.52 m Height (Calculated Centimeters) 152.4 Current Weight (lbs) 75.296 kg Weight (Calculated Kilograms) 75.3 Weight (Calculated Grams) 78433.3 [place] Body Weight 106 Body Mass Index (BMI) 32.4 Weight Status Overweight GI Symptoms GI Symptoms None Last BM none Difficult in: None Skin Integrity/Comment: Wound care note: stage IV pressure ulcer, erythema to buttocks/sacral Current %PO Fair (50-74%) Estimated Nutritional Goals BEE in Kcals: Adj wt of IBW Calories/Kcals/Kg 25-30 Kcals Calculated 8986-4153 Protein: Adj wt of IBW Protein g/k.2 Protein Calculated 66 Fluid: ml 1375-1650ml (1ml/kcal) Nutritional Problem 2. Problem Problem inadequate food intake Etiology poor appetite, abd pain Signs/Symptoms: PO intake 45-75% 1. Problem Problem altered nutrition related labs Etiology hx of DM Signs/Symptoms: glucose 137-176, A1c 8.1, Malnutrition Alert Is there a minimum of two criteria No selected? Query Text:Check all the applicable criteria. A minimum of two criteria are recommended for diagnosis of either severe or non-severe malnutrition. Malnutrition Related to Morbid Obesity Malnutrition related to morbid obesity No Intervention/Recommendation Comments 1. Continue with CCHO 60gm and 2g Na diet as ordered. 2. Consider adding Carlos BID to help with wound healing. 3. Monitor PO intake, wt, GI function and labs and skin integrity 4. F/U as moderate risk in 3-5 days, 07/31-08/02, PO check 07/30 Expected Outcomes/Goals Expected Outcomes/Goals 1. PO intake to meet at least 75% of nutritional needs. 2. Wt stability, skin to remain intact, labs to approach WNL. 1. Continue with current diet as ordered. 2. Monitor PO intake, wt, labs and skin integrity 3. F/U as
--- NOTE | 2018-07-29 18:06 | Infectious Disease Prog Note ---
Infectious Disease Subjective - Review of Systems Service Date: 07/29/18 Subjective: There is no new change, no fever. Infectious Disease Objective - Results Result Diagrams: 07/31/18 05:25 07/31/18 05:25 Recent Labs: Laboratory Last Values WBC 8.9 Th/cmm (4.8-10.8) 07/28/18 08:00 RBC 5.29 Mil/cmm (4.30-5.70) 07/28/18 08:00 Hgb 15.3 gm/dL (12-16) 07/28/18 08:00 Hct 45.5 % (41.0-60) 07/28/18 08:00 MCV 86.1 fl (80-99) 07/28/18 08:00 MCH 28.9 pg (26.0-30.0) 07/28/18 08:00 MCHC Differential 33.6 pg (28.0-36.0) 07/28/18 08:00 RDW 14.6 % (11.5-20.0) 07/28/18 08:00 Plt Count 238 Th/cmm (150-400) 07/28/18 08:00 MPV 7.8 fl 07/28/18 08:00 Neutrophils % 69.0 % (40.0-80.0) 07/28/18 08:00 Lymphocytes % 15.7 % (20.0-50.0) L 07/28/18 08:00 Monocytes % 9.8 % (2.0-10.0) 07/28/18 08:00 Eosinophils % 4.0 % (0.0-5.0) 07/28/18 08:00 Basophils % 1.5 % (0.0-2.0) 07/28/18 08:00 PT 9.6 SECONDS (9.5-11.5) 07/24/18 23:55 INR 0.92 (0.5-1.4) 07/24/18 23:55 PTT (Actin FS) 29.6 SECONDS (26.0-38.0) 07/24/18 23:55 Sodium 136 mEq/L (136-145) 07/28/18 08:00 Potassium 3.9 mEq/L (3.5-5.1) 07/28/18 08:00 Chloride 104 mEq/L (98-107) 07/28/18 08:00 Carbon Dioxide 26.4 mEq/L (21.0-31.0) 07/28/18 08:00 Anion Gap 9.5 (7.0-16.0) 07/28/18 08:00 BUN 10 mg/dL (7-25) 07/28/18 08:00 Creatinine 0.7 mg/dL (0.7-1.3) 07/28/18 08:00 Est GFR ( Amer) > 60.0 ml/min (>90) 07/28/18 08:00 Est GFR (Non-Af Amer) > 60.0 ml/min 07/28/18 08:00 BUN/Creatinine Ratio 14.3 07/28/18 08:00 Glucose 137 mg/dL (70-105) H 07/28/18 08:00 POC Glucose 204 MG/DL (70 - 105) H 07/29/18 16:32 Hemoglobin A1c % 8.1 % (4.0-6.0) H 07/25/18 06:05 Whole Bld Lactic Acid 1.00 mmol/L (0.60-1.99) 07/25/18 00:00 Calcium 8.8 mg/dL (8.6-10.3) 07/28/18 08:00 Total Bilirubin 0.4 mg/dL (0.3-1.0) 07/26/18 05:30 AST 15 U/L (13-39) 07/26/18 05:30 ALT 11 U/L (7-52) 07/26/18 05:30 Alkaline Phosphatase 59 U/L (34-104) 07/26/18 05:30 Total Protein 6.0 gm/dL (6.0-8.3) 07/26/18 05:30 Albumin 3.1 gm/dL (4.2-5.5) L 07/26/18 05:30 Globulin 2.9 gm/dL 07/26/18 05:30 Albumin/Globulin Ratio 1.1 (1.0-1.8) 07/26/18 05:30 Amylase 16 U/L (29-103) L 07/24/18 23:55 Lipase 10 U/L (11-82) L 07/24/18 23:55 Urine Source CLEAN C 07/25/18 15:44 Urine Color YELLOW 07/25/18 15:44 Urine Clarity CLOUDY (CLEAR) 07/25/18 15:44 Urine pH 6.0 (4.6 - 8.0) 07/25/18 15:44 Ur Specific [place] 1.020 (1.005-1.030) 07/25/18 15:44 Urine Protein 30 mg/dL (NEGATIVE) H 07/25/18 15:44 Urine Glucose (UA) NEGATIVE mg/dL (NEGATIVE) 07/25/18 15:44 Urine Ketones NEGATIVE mg/dL (NEGATIVE) 07/25/18 15:44 Urine Blood TRACE (NEGATIVE) 07/25/18 15:44 Urine Nitrate NEGATIVE (NEGATIVE) 07/25/18 15:44 Urine Bilirubin NEGATIVE (NEGATIVE) 07/25/18 15:44 Urine Urobilinogen 0.2 E.U./dL (0.2 - 1.0) 07/25/18 15:44 Ur Leukocyte Esterase LARGE (NEGATIVE) H 07/25/18 15:44 Urine RBC 2-5 /hpf (0-5) H 07/25/18 15:44 Urine WBC 50-100 /hpf (0-5) H 07/25/18 15:44 Ur Epithelial Cells OCCASIONAL /lpf (FEW) 07/25/18 15:44 Urine Bacteria MODERATE /hpf (NONE SEEN) H 07/25/18 15:44 Stool Occult Blood POSITIVE (NEGATIVE) H 07/27/18 06:15 Blood Type O NEGATIVE 07/25/18 03:05 Antibody Screen NEGATIVE 07/25/18 03:05 - Physical Exam Vitals and I&O: Vital Signs Temp 97.2 F 07/29/18 16:07 Pulse 70 07/29/18 16:07 Resp 18 07/29/18 16:07 BP 137/83 07/29/18 16:07 Pulse Ox 93 07/29/18 16:07 Intake & Output 07/28/18 07/29/18 07/29/18 18:59 06:59 18:59 Intake Total 5158.243 5195 1000 Output Total 1500 1230 Balance 41.667 1085 -230 Weight (lbs) 75.296 kg 75.614 kg Intake: Intake, IV Amount 635.243 5337 D5-0.45NS 1,000 ml @ 50 741.667 985 mls/hr IV .Q20H [facility] Rx#: [id number] Levofloxacin 500mg/100mL 100 500 mg In 100 ml @ 100 mls/hr IV Q24HR [facility] Rx#: [id number] Oral 800 1000 Output: Urine 1500 1200 Urine/Stool Mix 0 Other 30 Other: Stool Characteristics Liquid Soft Soft Brown Brown Green Weight Source Bedscale Bedscale Active Medications: Current Medications Acetaminophen (Tylenol) 650 mg PO Q4HR PRN PRN Reason: FEVER TEMP >101, AND MILD PAIN Stop: 09/23/18 09:01 Acetaminophen (Tylenol Extra Strength) 1,000 mg PO Q4HR PRN PRN Reason: Pain (Moderate) Stop: 09/23/18 09:01 Al Hydrox/Mg Hydrox/Simethicone (Maalox) 30 ml PO Q4H PRN PRN Reason: Abdominal Pain Stop: 09/23/18 09:01 Last Admin: 07/29/18 18:00 Dose: 30 ml Amitriptyline HCl (Elavil) 50 mg PO HS [facility] Stop: 09/23/18 20:59 Last Admin: 07/28/18 21:22 Dose: 50 mg Ascorbic Acid (Vitamin C) 500 mg PO DAILY [facility] Stop: 09/24/18 08:59 Last Admin: 07/29/18 10:16 Dose: 500 mg Aspirin (Aspirin Chewable) 81 mg PO DAILY [facility] Stop: 09/23/18 08:59 Last Admin: 07/29/18 10:15 Dose: 81 mg Baclofen (Lioresal) 10 mg PO Q8HR [facility] Stop: 09/23/18 12:59 Last Admin: 07/29/18 12:09 Dose: 10 mg Docusate Sodium (Colace) 100 mg PO DAILY [facility] Stop: 09/23/18 08:59 Last Admin: 07/29/18 10:16 Dose: Not Given Duloxetine HCl (Cymbalta) 30 mg PO DAILY [facility] Stop: 09/23/18 09:14 Last Admin: 07/29/18 10:15 Dose: 30 mg Hydromorphone HCl (Dilaudid) 1 mg IVP Q4HR PRN PRN Reason: Pain (Moderate) Stop: 09/23/18 02:55 Hydromorphone HCl (Dilaudid) 2 mg IVP Q4HR PRN PRN Reason: Pain (Severe) Stop: 09/23/18 02:55 Last Admin: 07/29/18 14:06 Dose: 2 mg Dextrose/Sodium Chloride (D5-0.45ns) 1,000 mls @ 50 mls/hr IV .Q20H [facility] Stop: 09/23/18 02:55 Last Admin: 07/29/18 06:23 Dose: 50 mls/hr Levofloxacin (Levaquin Pb) 500 mg in 100 mls @ 100 mls/hr IV Q24HR [facility] Stop: 09/23/18 20:59 Last Infusion: 07/28/18 23:30 Dose: Infused Insulin Aspart (Novolog Insulin Sliding Scale) 0 units SUBQ ACHS [facility]; Protocol Stop: 09/23/18 11:29 Last Admin: 07/29/18 17:58 Dose: 4 units Lactobacillus Rhamnosus (Culturelle 15b) 1 each PO DAILY [facility] Stop: 09/24/18 08:59 Last Admin: 07/29/18 10:15 Dose: 1 each Lisinopril (Zestril) 10 mg PO DAILY [facility] Stop: 09/23/18 08:59 Last Admin: 07/29/18 10:18 Dose: 10 mg Miscellaneous (Probiotic Screen) 1 ea MC PRN PRN PRN Reason: PROTOCOL Stop: 09/27/18 11:41 Ondansetron HCl (Zofran) 4 mg IV Q6H PRN PRN Reason: Nausea / Vomiting Stop: 09/23/18 09:01 Pregabalin (Lyrica) 150 mg PO BID [facility] Stop: 09/23/18 09:14 Last Admin: 07/29/18 17:16 Dose: 150 mg Vitamin D (Vitamin D3) 4,000 iu PO DAILY [facility] Stop: 09/23/18 09:14 Last Admin: 07/29/18 10:15 Dose: 4,000 iu General: no acute distress, well developed, well nourished HEENT: atraumatic, normocephalic, PERRLA Neck: supple, no thyromegaly, no lymphadenopathy Cardiovascular: S1S2, regular Lungs: clear to auscultation bilaterally, clear to percussion Abdomen: soft, other (colostomy), no tender, no distended, no mass Extremities: other (b/l BKA), no cyanosis, no clubbing Neurological: awake, alert, oriented Skin: intact - Procedures Procedures: Procedures Procedure Code Date INSPECTION OF LOWER INTESTINAL TRACT, ENDO [id number] 05/20/18 Infectious Disease Assmt/Plan - Problem List Patient Problems: All Active Problems Chronic pain syndrome (Acute) G89.4 Diabetes (Acute) E11.9 Gastrointestinal bleed (Acute) K92.2 HTN (hypertension) (Acute) I10 - Assessment Assessment: 1. Leukocytosis improved. 2. UTI. 3. Diabetes mellitus type 2. 4. Hypertension. 5. Colostomy malfunction. - Plan Plan: Continue levaquin. Nutritional Asmnt/Malnutr-PDOC - Dietary Evaluation Malnutrition Findings (Please click <Entered> for more info): Nutritional Asmnt/Malnutrition Start: 07/28/18 16: 47 Text: Status: Complete Freq: Protocol: Document 07/28/18 16:47 KRISTI (Rec: 07/28/18 17:05 KRISTI [email or web address]) Nutritional Asmnt/Malnutrition Patient General Information Nutritional Screening Moderate Risk Consult Diagnosis hyponatremia, bleeding at colostomy Pertinent Medical Hx/Surgical Hx bilateral AKA, HTN, DM, chronic pain syndrom, colostomy Subjective Information Consult received for stage IV pressure ulcer right buttocks. Pt seen lying in bed at time of visit, awake, not willing to talk. Pt reported poor appetite, abdominal pain, not interested in infomation of diabetic diet. Per EMR, PO intake 45-75%. Glucose 232 at admission noted. Per nurse, no more bleeding, stool OB possitive. Current Diet Order/ Nutrition Support CCHO 60gm, 2 gram sodium Pertinent Medications vit C, D5-0.45ns, olace, novolog, culturelle, levaquin, vit D3 Pertinent Labs 07/28 glucose 137, POC 126-224 9 Na 134, Cr 0.6, Glucose 146, POC 131-159 9 Cr 0.6, glucose 176, A1c 8 .1, POC 125-140 Nutritional Hx/Data Height 1.52 m Height (Calculated Centimeters) 152.4 Current Weight (lbs) 75.296 kg Weight (Calculated Kilograms) 75.3 Weight (Calculated Grams) 38579.3 [place] Body Weight 106 Body Mass Index (BMI) 32.4 Weight Status Overweight GI Symptoms GI Symptoms None Last BM none Difficult in: None Skin Integrity/Comment: Wound care note: stage IV pressure ulcer, erythema to buttocks/sacral Current %PO Fair (50-74%) Estimated Nutritional Goals BEE in Kcals: Adj wt of IBW Calories/Kcals/Kg 25-30 Kcals Calculated 0698-7651 Protein: Adj wt of IBW Protein g/k.2 Protein Calculated 66 Fluid: ml 1375-1650ml (1ml/kcal) Nutritional Problem 2. Problem Problem inadequate food intake Etiology poor appetite, abd pain Signs/Symptoms: PO intake 45-75% 1. Problem Problem altered nutrition related labs Etiology hx of DM Signs/Symptoms: glucose 137-176, A1c 8.1, Malnutrition Alert Is there a minimum of two criteria No selected? Query Text:Check all the applicable criteria. A minimum of two criteria are recommended for diagnosis of either severe or non-severe malnutrition. Malnutrition Related to Morbid Obesity Malnutrition related to morbid obesity No Intervention/Recommendation Comments 1. Continue with CCHO 60gm and 2g Na diet as ordered. 2. Consider adding Carlos BID to help with wound healing. 3. Monitor PO intake, wt, GI function and labs and skin integrity 4. F/U as moderate risk in 3-5 days, 07/31-08/02, PO check 07/30 Expected Outcomes/Goals Expected Outcomes/Goals 1. PO intake to meet at least 75% of nutritional needs. 2. Wt stability, skin to remain intact, labs to approach WNL. 1. Continue with current diet as ordered. 2. Monitor PO intake, wt, labs and skin integrity 3. F/U as
[2018-07-29] MEDS: Levofloxacin 500mg/100mL 500 MG/100 ML BAG IV SCH (21:26)
--- NOTE | 2018-07-29 22:27 | Consultation ---
DATE OF CONSULTATION: 07/29/2018 HISTORY OF PRESENT ILLNESS: A 57-year-old male admitted [facility] a [facility] ER at [facility] due to blood in the ostomy. On expl-dt-cfhh, the patient states he is in a "shitty mood." Does not want to talk to me. States he has had a colostomy bag for 5 years. States he is very mad and upset, does not okay sleep, okay appetite, answering no questions about orientation, but he does tell me why he is in the hospital. I asked questions about mood and anxiety, but the patient telling me that he does not want to answer any of my " bullshit questions," and asked me to leave. PAST PSYCHIATRIC HISTORY: Denies. SOCIAL HISTORY: Born in [place]. Not , no kids. States he smokes, living in rehabilitation. MENTAL STATUS EXAMINATION: Stated age, unkempt, fair eye contact. Speech loud. Mood: "shitty." Affect angry. Thought processes were grossly linear. No SI, no HI, no intent, no plan. No acute evidence of psychosis. No voices or hallucinations. Insight and judgment, questionable. PROVISIONAL DIAGNOSIS: Mood, unspecified. MEDICAL: Please see full H and P. RECOMMENDATIONS AND PLAN: Difficult to fully assess at this time. The patient is angry, refusing to answer most of my questions, alluding to mistrust of doctors. We will continue to monitor and follow up. We will try to reestablish rapport_ with the patient at a later time. JOB# [id number] CAT
[2018-07-30] MEDS: HYDROmorphone 2 mg/mL 1mL Vial IVP PRN ×6 (01:39→21:54)
[2018-07-30] MEDS: D5-0.45NS 1,000 ML IV SCH (05:43)
[2018-07-30] MEDS: INSULIN ASPART SLIDING SCALE 100 UNITS/ML UNIT SUBQ SCH ×4 (06:31→20:45)
--- NOTE | 2018-07-30 07:55 | Diagnostic Imaging Report ---
CT abdomen and pelvis without intravenous contrast Indication: Abdominal pain Comparison: None, Technique: Axial images were obtained from the lung bases to the bilateral proximal femurs without IV contrast. Oral contrast was administered. Coronal reconstructions were made. total DLP: 696, CTDI14 FINDINGS: Hypoventilatory and atelectatic changes of the lung bases are noted. Assessment of the solid organs is limited due to lack of IV contrast. There is no evidence of focal hepatic lesions. No radiopaque gallstones identified. Note exam is limited due to motion. Pancreatic atrophy is noted with no discrete focal lesions. No focal adrenal lesions. Nonspecific bilateral perinephric inflammatory changes are noted. Bilateral renal calcifications are noted which appear to be vascular. No hydronephrosis. Bilateral renal cysts are noted the largest on the right side measuring 3.2 cm. Heavy atherosclerotic vascular disease is noted. Distended urinary bladder is noted. There is a narrow based hernia seen located along the left lower abdomen within the left rectus abdominis muscle with protrusion of small and large bowel loops. There may be an ostomy in this region. Minimal inflammatory changes are seen in this region. Narrowing contrast opacified small bowel is seen in this region. No free air or free fluid. There is copious stool throughout the colon. Appendix is not well-visualized. Mild anasarca is noted. There are inflammatory changes and soft tissue density seen along the right lateral buttock region with few injection granulomas also noted. There is a soft tissue defect and partially visualized ulceration seen posterior to the right ischial bone with increased density of the right ischial bone likely due to chronic osteomyelitis. Degenerative changes of the spine are noted. Old mild compression deformity of T12 is noted. IMPRESSION: Large narrow based ventral hernia located within the left rectus abdominis muscle with herniation of both small and large bowel loops. Minimal inflammatory changes are seen in this region. A low-grade obstructive process in this region cannot be excluded. There may also be an ostomy in this region. Clinical correlation is needed. Right-sided, partially visualized decubitus ulceration extending to the right ischial tuberosity. Increased density of the right ischial tuberosity is probably related to chronic osteomyelitis. Additional mild inflammatory changes soft tissue density right buttock region is also noted. Copious stool throughout the colon. Distended urinary bladder. Renal cysts. Heavy atherosclerotic vascular disease. Please refer to above for details.
[2018-07-30] MEDS: Vitamin D3 2,000 IU SGL PO SCH (09:52)
[2018-07-30] MEDS: Aspirin 81mg Chewable Tab PO SCH (09:52)
[2018-07-30] MEDS: Lactobacillus Rhamnosus GG 15 Billion CFU CAP.SPRINK PO SCH (09:53)
[2018-07-30] MEDS: Multivitamin w/ Minerals Tab PO SCH (09:53)
--- NOTE | 2018-07-30 11:45 | General Progress Note ---
Subjective - Review of Systems Events since last encounter: no fever no distress patient doing well Objective - Results Result Diagrams: 07/28/18 08:00 07/28/18 08:00 Recent Labs: Laboratory Last Values WBC 8.9 Th/cmm (4.8-10.8) 07/28/18 08:00 RBC 5.29 Mil/cmm (4.30-5.70) 07/28/18 08:00 Hgb 15.3 gm/dL (12-16) 07/28/18 08:00 Hct 45.5 % (41.0-60) 07/28/18 08:00 MCV 86.1 fl (80-99) 07/28/18 08:00 MCH 28.9 pg (26.0-30.0) 07/28/18 08:00 MCHC Differential 33.6 pg (28.0-36.0) 07/28/18 08:00 RDW 14.6 % (11.5-20.0) 07/28/18 08:00 Plt Count 238 Th/cmm (150-400) 07/28/18 08:00 MPV 7.8 fl 07/28/18 08:00 Neutrophils % 69.0 % (40.0-80.0) 07/28/18 08:00 Lymphocytes % 15.7 % (20.0-50.0) L 07/28/18 08:00 Monocytes % 9.8 % (2.0-10.0) 07/28/18 08:00 Eosinophils % 4.0 % (0.0-5.0) 07/28/18 08:00 Basophils % 1.5 % (0.0-2.0) 07/28/18 08:00 PT 9.6 SECONDS (9.5-11.5) 07/24/18 23:55 INR 0.92 (0.5-1.4) 07/24/18 23:55 PTT (Actin FS) 29.6 SECONDS (26.0-38.0) 07/24/18 23:55 Sodium 136 mEq/L (136-145) 07/28/18 08:00 Potassium 3.9 mEq/L (3.5-5.1) 07/28/18 08:00 Chloride 104 mEq/L (98-107) 07/28/18 08:00 Carbon Dioxide 26.4 mEq/L (21.0-31.0) 07/28/18 08:00 Anion Gap 9.5 (7.0-16.0) 07/28/18 08:00 BUN 10 mg/dL (7-25) 07/28/18 08:00 Creatinine 0.7 mg/dL (0.7-1.3) 07/28/18 08:00 Est GFR ( Amer) > 60.0 ml/min (>90) 07/28/18 08:00 Est GFR (Non-Af Amer) > 60.0 ml/min 07/28/18 08:00 BUN/Creatinine Ratio 14.3 07/28/18 08:00 Glucose 137 mg/dL (70-105) H 07/28/18 08:00 POC Glucose 118 MG/DL (70 - 105) H 07/30/18 05:42 Hemoglobin A1c % 8.1 % (4.0-6.0) H 07/25/18 06:05 Whole Bld Lactic Acid 1.00 mmol/L (0.60-1.99) 07/25/18 00:00 Calcium 8.8 mg/dL (8.6-10.3) 07/28/18 08:00 Total Bilirubin 0.4 mg/dL (0.3-1.0) 07/26/18 05:30 AST 15 U/L (13-39) 07/26/18 05:30 ALT 11 U/L (7-52) 07/26/18 05:30 Alkaline Phosphatase 59 U/L (34-104) 07/26/18 05:30 Total Protein 6.0 gm/dL (6.0-8.3) 07/26/18 05:30 Albumin 3.1 gm/dL (4.2-5.5) L 07/26/18 05:30 Globulin 2.9 gm/dL 07/26/18 05:30 Albumin/Globulin Ratio 1.1 (1.0-1.8) 07/26/18 05:30 Amylase 16 U/L (29-103) L 07/24/18 23:55 Lipase 10 U/L (11-82) L 07/24/18 23:55 Urine Source CLEAN C 07/25/18 15:44 Urine Color YELLOW 07/25/18 15:44 Urine Clarity CLOUDY (CLEAR) 07/25/18 15:44 Urine pH 6.0 (4.6 - 8.0) 07/25/18 15:44 Ur Specific [place] 1.020 (1.005-1.030) 07/25/18 15:44 Urine Protein 30 mg/dL (NEGATIVE) H 07/25/18 15:44 Urine Glucose (UA) NEGATIVE mg/dL (NEGATIVE) 07/25/18 15:44 Urine Ketones NEGATIVE mg/dL (NEGATIVE) 07/25/18 15:44 Urine Blood TRACE (NEGATIVE) 07/25/18 15:44 Urine Nitrate NEGATIVE (NEGATIVE) 07/25/18 15:44 Urine Bilirubin NEGATIVE (NEGATIVE) 07/25/18 15:44 Urine Urobilinogen 0.2 E.U./dL (0.2 - 1.0) 07/25/18 15:44 Ur Leukocyte Esterase LARGE (NEGATIVE) H 07/25/18 15:44 Urine RBC 2-5 /hpf (0-5) H 07/25/18 15:44 Urine WBC 50-100 /hpf (0-5) H 07/25/18 15:44 Ur Epithelial Cells OCCASIONAL /lpf (FEW) 07/25/18 15:44 Urine Bacteria MODERATE /hpf (NONE SEEN) H 07/25/18 15:44 Stool Occult Blood POSITIVE (NEGATIVE) H 07/27/18 06:15 Blood Type O NEGATIVE 07/25/18 03:05 Antibody Screen NEGATIVE 07/25/18 03:05 - Physical Exam Vitals and I&O: Vital Signs Temp 97.2 F 07/30/18 07:52 Pulse 80 07/30/18 09:53 Resp 18 07/30/18 07:52 BP 149/87 07/30/18 09:53 Pulse Ox 96 07/30/18 07:52 Intake & Output 07/29/18 07/30/18 07/30/18 18:59 06:59 18:59 Intake Total 1950 1800 Output Total 2280 1550 Balance -330 250 Weight (lbs) 75.614 kg 77.564 kg Intake: Intake, IV Amount 1000 D5-0.45NS 1,000 ml @ 50 1000 mls/hr IV .Q20H [facility] Rx#: [id number] Oral 1950 800 Output: Urine 2250 1500 Other 30 50 Other: # Voids 1 # Bowel Movements 1 Stool Characteristics Soft Soft Brown Brown Weight Source Bedscale Bedscale Active Medications: Current Medications Acetaminophen (Tylenol) 650 mg PO Q4HR PRN PRN Reason: FEVER TEMP >101, AND MILD PAIN Stop: 09/23/18 09:01 Acetaminophen (Tylenol Extra Strength) 1,000 mg PO Q4HR PRN PRN Reason: Pain (Moderate) Stop: 09/23/18 09:01 Al Hydrox/Mg Hydrox/Simethicone (Maalox) 30 ml PO Q4H PRN PRN Reason: Abdominal Pain Stop: 09/23/18 09:01 Last Admin: 07/29/18 18:00 Dose: 30 ml Amitriptyline HCl (Elavil) 50 mg PO HS [facility] Stop: 09/23/18 20:59 Last Admin: 07/29/18 21:26 Dose: 50 mg Ascorbic Acid (Vitamin C) 500 mg PO DAILY [facility] Stop: 09/24/18 08:59 Last Admin: 07/30/18 09:52 Dose: 500 mg Aspirin (Aspirin Chewable) 81 mg PO DAILY [facility] Stop: 09/23/18 08:59 Last Admin: 07/30/18 09:52 Dose: 81 mg Baclofen (Lioresal) 10 mg PO Q8HR [facility] Stop: 09/23/18 12:59 Last Admin: 07/30/18 05:43 Dose: 10 mg Docusate Sodium (Colace) 100 mg PO DAILY [facility] Stop: 09/23/18 08:59 Last Admin: 07/30/18 09:23 Dose: Not Given Duloxetine HCl (Cymbalta) 30 mg PO DAILY [facility] Stop: 09/23/18 09:14 Last Admin: 07/30/18 09:53 Dose: 30 mg Hydromorphone HCl (Dilaudid) 1 mg IVP Q4HR PRN PRN Reason: Pain (Moderate) Stop: 09/23/18 02:55 Hydromorphone HCl (Dilaudid) 2 mg IVP Q4HR PRN PRN Reason: Pain (Severe) Stop: 09/23/18 02:55 Last Admin: 07/30/18 09:46 Dose: 2 mg Dextrose/Sodium Chloride (D5-0.45ns) 1,000 mls @ 50 mls/hr IV .Q20H [facility] Stop: 09/23/18 02:55 Last Admin: 07/30/18 05:43 Dose: 50 mls/hr Levofloxacin (Levaquin Pb) 500 mg in 100 mls @ 100 mls/hr IV Q24HR [facility] Stop: 09/23/18 20:59 Last Admin: 07/29/18 21:26 Dose: 100 mls/hr Insulin Aspart (Novolog Insulin Sliding Scale) 0 units SUBQ ACHS [facility]; Protocol Stop: 09/23/18 11:29 Last Admin: 07/30/18 06:31 Dose: Not Given Lactobacillus Rhamnosus (Culturelle 15b) 1 each PO DAILY [facility] Stop: 09/24/18 08:59 Last Admin: 07/30/18 09:53 Dose: 1 each Lisinopril (Zestril) 10 mg PO DAILY [facility] Stop: 09/23/18 08:59 Last Admin: 07/30/18 09:53 Dose: 10 mg Miscellaneous (Probiotic Screen) 1 ea MC PRN PRN PRN Reason: PROTOCOL Stop: 09/27/18 11:41 Ondansetron HCl (Zofran) 4 mg IV Q6H PRN PRN Reason: Nausea / Vomiting Stop: 09/23/18 09:01 Pregabalin (Lyrica) 150 mg PO BID [facility] Stop: 09/23/18 09:14 Last Admin: 07/30/18 09:53 Dose: 150 mg Vitamin D (Vitamin D3) 4,000 iu PO DAILY [facility] Stop: 09/23/18 09:14 Last Admin: 07/30/18 09:52 Dose: 4,000 iu General: Alert, No acute distress HEENT: Atraumatic Neck: no Thyromegaly Cardiovascular: Regular rate, Normal S1, Normal S2 Lungs: Clear to auscultation, Normal air movement Abdomen: Bowel sounds, Soft, Other (colostomy bag with brown stool) - Procedures Procedures: Procedures Procedure Code Date INSPECTION OF LOWER INTESTINAL TRACT, ENDO [id number] 05/20/18 Assessment/Plan - Problem List Patient Problems: All Active Problems Chronic pain syndrome (Acute) G89.4 Diabetes (Acute) E11.9 Gastrointestinal bleed (Acute) K92.2 HTN (hypertension) (Acute) I10 - Plan Plan: as per order sheet Nutritional Asmnt/Malnutr-PDOC - Dietary Evaluation Malnutrition Findings (Please click <Entered> for more info): Nutritional Asmnt/Malnutrition Start: 07/28/18 16: 47 Text: Status: Complete Freq: Protocol: Document 07/28/18 16:47 JUNIOR (Rec: 07/28/18 17:05 [email or web address] [email or web address]) Nutritional Asmnt/Malnutrition Patient General Information Nutritional Screening Moderate Risk Consult Diagnosis hyponatremia, bleeding at colostomy Pertinent Medical Hx/Surgical Hx bilateral AKA, HTN, DM, chronic pain syndrom, colostomy Subjective Information Consult received for stage IV pressure ulcer right buttocks. Pt seen lying in bed at time of visit, awake, not willing to talk. Pt reported poor appetite, abdominal pain, not interested in infomation of diabetic diet. Per EMR, PO intake 45-75%. Glucose 232 at admission noted. Per nurse, no more bleeding, stool OB possitive. Current Diet Order/ Nutrition Support CCHO 60gm, 2 gram sodium Pertinent Medications vit C, D5-0.45ns, olace, novolog, culturelle, levaquin, vit D3 Pertinent Labs 07/28 glucose 137, POC 126-224 07/26 Na 134, Cr 0.6, Glucose 146, POC 131-159 9 Cr 0.6, glucose 176, A1c 8 .1, POC 125-140 Nutritional Hx/Data Height 1.52 m Height (Calculated Centimeters) 152.4 Current Weight (lbs) 75.296 kg Weight (Calculated Kilograms) 75.3 Weight (Calculated Grams) 85492.3 [place] Body Weight 106 Body Mass Index (BMI) 32.4 Weight Status Overweight GI Symptoms GI Symptoms None Last BM none Difficult in: None Skin Integrity/Comment: Wound care note: stage IV pressure ulcer, erythema to buttocks/sacral Current %PO Fair (50-74%) Estimated Nutritional Goals BEE in Kcals: Adj wt of IBW Calories/Kcals/Kg 25-30 Kcals Calculated 4853-0009 Protein: Adj wt of IBW Protein g/k.2 Protein Calculated 66 Fluid: ml 1375-1650ml (1ml/kcal) Nutritional Problem 2. Problem Problem inadequate food intake Etiology poor appetite, abd pain Signs/Symptoms: PO intake 45-75% 1. Problem Problem altered nutrition related labs Etiology hx of DM Signs/Symptoms: glucose 137-176, A1c 8.1, Malnutrition Alert Is there a minimum of two criteria No selected? Query Text:Check all the applicable criteria. A minimum of two criteria are recommended for diagnosis of either severe or non-severe malnutrition. Malnutrition Related to Morbid Obesity Malnutrition related to morbid obesity No Intervention/Recommendation Comments 1. Continue with CCHO 60gm and 2g Na diet as ordered. 2. Consider adding Carlos BID to help with wound healing. 3. Monitor PO intake, wt, GI function and labs and skin integrity 4. F/U as moderate risk in 3-5 days, 07/31-08/02, PO check 07/30 Expected Outcomes/Goals Expected Outcomes/Goals 1. PO intake to meet at least 75% of nutritional needs. 2. Wt stability, skin to remain intact, labs to approach WNL. 1. Continue with current diet as ordered. 2. Monitor PO intake, wt, labs and skin integrity 3. F/U as
--- NOTE | 2018-07-30 14:41 | GI Progress Note ---
Subjective - Review of Systems Subjective: NO GI BLEEDING Objective - Results Result Diagrams: 07/28/18 08:00 07/28/18 08:00 Recent Labs: Laboratory Last Values WBC 8.9 Th/cmm (4.8-10.8) 07/28/18 08:00 RBC 5.29 Mil/cmm (4.30-5.70) 07/28/18 08:00 Hgb 15.3 gm/dL (12-16) 07/28/18 08:00 Hct 45.5 % (41.0-60) 07/28/18 08:00 MCV 86.1 fl (80-99) 07/28/18 08:00 MCH 28.9 pg (26.0-30.0) 07/28/18 08:00 MCHC Differential 33.6 pg (28.0-36.0) 07/28/18 08:00 RDW 14.6 % (11.5-20.0) 07/28/18 08:00 Plt Count 238 Th/cmm (150-400) 07/28/18 08:00 MPV 7.8 fl 07/28/18 08:00 Neutrophils % 69.0 % (40.0-80.0) 07/28/18 08:00 Lymphocytes % 15.7 % (20.0-50.0) L 07/28/18 08:00 Monocytes % 9.8 % (2.0-10.0) 07/28/18 08:00 Eosinophils % 4.0 % (0.0-5.0) 07/28/18 08:00 Basophils % 1.5 % (0.0-2.0) 07/28/18 08:00 PT 9.6 SECONDS (9.5-11.5) 07/24/18 23:55 INR 0.92 (0.5-1.4) 07/24/18 23:55 PTT (Actin FS) 29.6 SECONDS (26.0-38.0) 07/24/18 23:55 Sodium 136 mEq/L (136-145) 07/28/18 08:00 Potassium 3.9 mEq/L (3.5-5.1) 07/28/18 08:00 Chloride 104 mEq/L (98-107) 07/28/18 08:00 Carbon Dioxide 26.4 mEq/L (21.0-31.0) 07/28/18 08:00 Anion Gap 9.5 (7.0-16.0) 07/28/18 08:00 BUN 10 mg/dL (7-25) 07/28/18 08:00 Creatinine 0.7 mg/dL (0.7-1.3) 07/28/18 08:00 Est GFR ( Amer) > 60.0 ml/min (>90) 07/28/18 08:00 Est GFR (Non-Af Amer) > 60.0 ml/min 07/28/18 08:00 BUN/Creatinine Ratio 14.3 07/28/18 08:00 Glucose 137 mg/dL (70-105) H 07/28/18 08:00 POC Glucose 129 MG/DL (70 - 105) H 07/30/18 12:12 Hemoglobin A1c % 8.1 % (4.0-6.0) H 07/25/18 06:05 Whole Bld Lactic Acid 1.00 mmol/L (0.60-1.99) 07/25/18 00:00 Calcium 8.8 mg/dL (8.6-10.3) 07/28/18 08:00 Total Bilirubin 0.4 mg/dL (0.3-1.0) 07/26/18 05:30 AST 15 U/L (13-39) 07/26/18 05:30 ALT 11 U/L (7-52) 07/26/18 05:30 Alkaline Phosphatase 59 U/L (34-104) 07/26/18 05:30 Total Protein 6.0 gm/dL (6.0-8.3) 07/26/18 05:30 Albumin 3.1 gm/dL (4.2-5.5) L 07/26/18 05:30 Globulin 2.9 gm/dL 07/26/18 05:30 Albumin/Globulin Ratio 1.1 (1.0-1.8) 07/26/18 05:30 Amylase 16 U/L (29-103) L 07/24/18 23:55 Lipase 10 U/L (11-82) L 07/24/18 23:55 Urine Source CLEAN C 07/25/18 15:44 Urine Color YELLOW 07/25/18 15:44 Urine Clarity CLOUDY (CLEAR) 07/25/18 15:44 Urine pH 6.0 (4.6 - 8.0) 07/25/18 15:44 Ur Specific [place] 1.020 (1.005-1.030) 07/25/18 15:44 Urine Protein 30 mg/dL (NEGATIVE) H 07/25/18 15:44 Urine Glucose (UA) NEGATIVE mg/dL (NEGATIVE) 07/25/18 15:44 Urine Ketones NEGATIVE mg/dL (NEGATIVE) 07/25/18 15:44 Urine Blood TRACE (NEGATIVE) 07/25/18 15:44 Urine Nitrate NEGATIVE (NEGATIVE) 07/25/18 15:44 Urine Bilirubin NEGATIVE (NEGATIVE) 07/25/18 15:44 Urine Urobilinogen 0.2 E.U./dL (0.2 - 1.0) 07/25/18 15:44 Ur Leukocyte Esterase LARGE (NEGATIVE) H 07/25/18 15:44 Urine RBC 2-5 /hpf (0-5) H 07/25/18 15:44 Urine WBC 50-100 /hpf (0-5) H 07/25/18 15:44 Ur Epithelial Cells OCCASIONAL /lpf (FEW) 07/25/18 15:44 Urine Bacteria MODERATE /hpf (NONE SEEN) H 07/25/18 15:44 Stool Occult Blood POSITIVE (NEGATIVE) H 07/27/18 06:15 Blood Type O NEGATIVE 07/25/18 03:05 Antibody Screen NEGATIVE 07/25/18 03:05 - Physical Exam Vitals and I&O: Vital Signs Temp 97.5 F 07/30/18 12:04 Pulse 68 07/30/18 12:04 Resp 18 07/30/18 12:04 BP 130/86 07/30/18 12:04 Pulse Ox 97 07/30/18 12:04 Intake & Output 07/29/18 07/30/18 07/30/18 18:59 06:59 18:59 Intake Total 1950 1800 Output Total 2280 1550 Balance -330 250 Weight (lbs) 75.614 kg 77.564 kg Intake: Intake, IV Amount 1000 D5-0.45NS 1,000 ml @ 50 1000 mls/hr IV .Q20H [facility] Rx#: [id number] Oral 1950 800 Output: Urine 2250 1500 Other 30 50 Other: # Voids 1 # Bowel Movements 1 Stool Characteristics Soft Soft Brown Brown Weight Source Bedscale Bedscale Active Medications: Current Medications Acetaminophen (Tylenol) 650 mg PO Q4HR PRN PRN Reason: FEVER TEMP >101, AND MILD PAIN Stop: 09/23/18 09:01 Acetaminophen (Tylenol Extra Strength) 1,000 mg PO Q4HR PRN PRN Reason: Pain (Moderate) Stop: 09/23/18 09:01 Al Hydrox/Mg Hydrox/Simethicone (Maalox) 30 ml PO Q4H PRN PRN Reason: Abdominal Pain Stop: 09/23/18 09:01 Last Admin: 07/29/18 18:00 Dose: 30 ml Amitriptyline HCl (Elavil) 50 mg PO HS [facility] Stop: 09/23/18 20:59 Last Admin: 07/29/18 21:26 Dose: 50 mg Ascorbic Acid (Vitamin C) 500 mg PO DAILY [facility] Stop: 09/24/18 08:59 Last Admin: 07/30/18 09:52 Dose: 500 mg Aspirin (Aspirin Chewable) 81 mg PO DAILY [facility] Stop: 09/23/18 08:59 Last Admin: 07/30/18 09:52 Dose: 81 mg Baclofen (Lioresal) 10 mg PO Q8HR [facility] Stop: 09/23/18 12:59 Last Admin: 07/30/18 12:14 Dose: 10 mg Docusate Sodium (Colace) 100 mg PO DAILY [facility] Stop: 09/23/18 08:59 Last Admin: 07/30/18 09:23 Dose: Not Given Duloxetine HCl (Cymbalta) 30 mg PO DAILY [facility] Stop: 09/23/18 09:14 Last Admin: 07/30/18 09:53 Dose: 30 mg Hydromorphone HCl (Dilaudid) 1 mg IVP Q4HR PRN PRN Reason: Pain (Moderate) Stop: 09/23/18 02:55 Hydromorphone HCl (Dilaudid) 2 mg IVP Q4HR PRN PRN Reason: Pain (Severe) Stop: 09/23/18 02:55 Last Admin: 07/30/18 13:49 Dose: 2 mg Dextrose/Sodium Chloride (D5-0.45ns) 1,000 mls @ 50 mls/hr IV .Q20H [facility] Stop: 09/23/18 02:55 Last Admin: 07/30/18 05:43 Dose: 50 mls/hr Levofloxacin (Levaquin Pb) 500 mg in 100 mls @ 100 mls/hr IV Q24HR [facility] Stop: 09/23/18 20:59 Last Admin: 07/29/18 21:26 Dose: 100 mls/hr Insulin Aspart (Novolog Insulin Sliding Scale) 0 units SUBQ ACHS [facility]; Protocol Stop: 09/23/18 11:29 Last Admin: 07/30/18 12:15 Dose: Not Given Lactobacillus Rhamnosus (Culturelle 15b) 1 each PO DAILY [facility] Stop: 09/24/18 08:59 Last Admin: 07/30/18 09:53 Dose: 1 each Lisinopril (Zestril) 10 mg PO DAILY [facility] Stop: 09/23/18 08:59 Last Admin: 07/30/18 09:53 Dose: 10 mg Miscellaneous (Probiotic Screen) 1 ea MC PRN PRN PRN Reason: PROTOCOL Stop: 09/27/18 11:41 Ondansetron HCl (Zofran) 4 mg IV Q6H PRN PRN Reason: Nausea / Vomiting Stop: 09/23/18 09:01 Pregabalin (Lyrica) 150 mg PO BID [facility] Stop: 09/23/18 09:14 Last Admin: 07/30/18 09:53 Dose: 150 mg Vitamin D (Vitamin D3) 4,000 iu PO DAILY [facility] Stop: 09/23/18 09:14 Last Admin: 07/30/18 09:52 Dose: 4,000 iu General: Alert, No acute distress HEENT: Atraumatic Neck: no Thyromegaly Cardiovascular: Regular rate, Normal S1, Normal S2 Lungs: Clear to auscultation, Normal air movement Abdomen: Bowel sounds, Soft, Other (colostomy bag with brown stool) - Procedures Procedures: Procedures Procedure Code Date INSPECTION OF LOWER INTESTINAL TRACT, ENDO [id number] 05/20/18 Assessment/Plan - Problem List Patient Problems: All Active Problems Chronic pain syndrome (Acute) G89.4 Diabetes (Acute) E11.9 Gastrointestinal bleed (Acute) K92.2 HTN (hypertension) (Acute) I10 - Assessment Assessment: 57 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
--- NOTE | 2018-07-30 16:35 | General Progress Note ---
Subjective - Review of Systems Service Date: 07/30/18 Events since last encounter: recurrent abdominal pain around colostomy CT - incarcerated ventral hernia UNFORTUNATELY, STOMA IS ALONG THE INCISION LINE, UNUSUAL LOCATION FOR THIS discussed with Dr. Kraft and patient who wants surgery done due to pain brother called and message left Plan: repair of hernia and debridement of right hip ulcer Objective - Results Result Diagrams: 07/28/18 08:00 07/28/18 08:00 Recent Labs: Laboratory Last Values WBC 8.9 Th/cmm (4.8-10.8) 07/28/18 08:00 RBC 5.29 Mil/cmm (4.30-5.70) 07/28/18 08:00 Hgb 15.3 gm/dL (12-16) 07/28/18 08:00 Hct 45.5 % (41.0-60) 07/28/18 08:00 MCV 86.1 fl (80-99) 07/28/18 08:00 MCH 28.9 pg (26.0-30.0) 07/28/18 08:00 MCHC Differential 33.6 pg (28.0-36.0) 07/28/18 08:00 RDW 14.6 % (11.5-20.0) 07/28/18 08:00 Plt Count 238 Th/cmm (150-400) 07/28/18 08:00 MPV 7.8 fl 07/28/18 08:00 Neutrophils % 69.0 % (40.0-80.0) 07/28/18 08:00 Lymphocytes % 15.7 % (20.0-50.0) L 07/28/18 08:00 Monocytes % 9.8 % (2.0-10.0) 07/28/18 08:00 Eosinophils % 4.0 % (0.0-5.0) 07/28/18 08:00 Basophils % 1.5 % (0.0-2.0) 07/28/18 08:00 PT 9.6 SECONDS (9.5-11.5) 07/24/18 23:55 INR 0.92 (0.5-1.4) 07/24/18 23:55 PTT (Actin FS) 29.6 SECONDS (26.0-38.0) 07/24/18 23:55 Sodium 136 mEq/L (136-145) 07/28/18 08:00 Potassium 3.9 mEq/L (3.5-5.1) 07/28/18 08:00 Chloride 104 mEq/L (98-107) 07/28/18 08:00 Carbon Dioxide 26.4 mEq/L (21.0-31.0) 07/28/18 08:00 Anion Gap 9.5 (7.0-16.0) 07/28/18 08:00 BUN 10 mg/dL (7-25) 07/28/18 08:00 Creatinine 0.7 mg/dL (0.7-1.3) 07/28/18 08:00 Est GFR ( Amer) > 60.0 ml/min (>90) 07/28/18 08:00 Est GFR (Non-Af Amer) > 60.0 ml/min 07/28/18 08:00 BUN/Creatinine Ratio 14.3 07/28/18 08:00 Glucose 137 mg/dL (70-105) H 07/28/18 08:00 POC Glucose 129 MG/DL (70 - 105) H 07/30/18 12:12 Hemoglobin A1c % 8.1 % (4.0-6.0) H 07/25/18 06:05 Whole Bld Lactic Acid 1.00 mmol/L (0.60-1.99) 07/25/18 00:00 Calcium 8.8 mg/dL (8.6-10.3) 07/28/18 08:00 Total Bilirubin 0.4 mg/dL (0.3-1.0) 07/26/18 05:30 AST 15 U/L (13-39) 07/26/18 05:30 ALT 11 U/L (7-52) 07/26/18 05:30 Alkaline Phosphatase 59 U/L (34-104) 07/26/18 05:30 Total Protein 6.0 gm/dL (6.0-8.3) 07/26/18 05:30 Albumin 3.1 gm/dL (4.2-5.5) L 07/26/18 05:30 Globulin 2.9 gm/dL 07/26/18 05:30 Albumin/Globulin Ratio 1.1 (1.0-1.8) 07/26/18 05:30 Amylase 16 U/L (29-103) L 07/24/18 23:55 Lipase 10 U/L (11-82) L 07/24/18 23:55 Urine Source CLEAN C 07/25/18 15:44 Urine Color YELLOW 07/25/18 15:44 Urine Clarity CLOUDY (CLEAR) 07/25/18 15:44 Urine pH 6.0 (4.6 - 8.0) 07/25/18 15:44 Ur Specific [place] 1.020 (1.005-1.030) 07/25/18 15:44 Urine Protein 30 mg/dL (NEGATIVE) H 07/25/18 15:44 Urine Glucose (UA) NEGATIVE mg/dL (NEGATIVE) 07/25/18 15:44 Urine Ketones NEGATIVE mg/dL (NEGATIVE) 07/25/18 15:44 Urine Blood TRACE (NEGATIVE) 07/25/18 15:44 Urine Nitrate NEGATIVE (NEGATIVE) 07/25/18 15:44 Urine Bilirubin NEGATIVE (NEGATIVE) 07/25/18 15:44 Urine Urobilinogen 0.2 E.U./dL (0.2 - 1.0) 07/25/18 15:44 Ur Leukocyte Esterase LARGE (NEGATIVE) H 07/25/18 15:44 Urine RBC 2-5 /hpf (0-5) H 07/25/18 15:44 Urine WBC 50-100 /hpf (0-5) H 07/25/18 15:44 Ur Epithelial Cells OCCASIONAL /lpf (FEW) 07/25/18 15:44 Urine Bacteria MODERATE /hpf (NONE SEEN) H 07/25/18 15:44 Stool Occult Blood POSITIVE (NEGATIVE) H 07/27/18 06:15 Blood Type O NEGATIVE 07/25/18 03:05 Antibody Screen NEGATIVE 07/25/18 03:05 - Physical Exam Vitals and I&O: Vital Signs Temp 97.4 F 07/30/18 15:42 Pulse 78 07/30/18 15:42 Resp 18 07/30/18 15:42 BP 153/94 07/30/18 15:42 Pulse Ox 98 07/30/18 15:42 Intake & Output 07/29/18 07/30/18 07/30/18 18:59 06:59 18:59 Intake Total 1950 1800 Output Total 2280 1550 Balance -330 250 Weight (lbs) 75.614 kg 77.564 kg Intake: Intake, IV Amount 1000 D5-0.45NS 1,000 ml @ 50 1000 mls/hr IV .Q20H [facility] Rx#: [id number] Oral 1950 800 Output: Urine 2250 1500 Other 30 50 Other: # Voids 1 # Bowel Movements 1 Stool Characteristics Soft Soft Brown Brown Weight Source Bedscale Bedscale Active Medications: Current Medications Acetaminophen (Tylenol) 650 mg PO Q4HR PRN PRN Reason: FEVER TEMP >101, AND MILD PAIN Stop: 09/23/18 09:01 Acetaminophen (Tylenol Extra Strength) 1,000 mg PO Q4HR PRN PRN Reason: Pain (Moderate) Stop: 09/23/18 09:01 Al Hydrox/Mg Hydrox/Simethicone (Maalox) 30 ml PO Q4H PRN PRN Reason: Abdominal Pain Stop: 09/23/18 09:01 Last Admin: 07/29/18 18:00 Dose: 30 ml Amitriptyline HCl (Elavil) 50 mg PO HS [facility] Stop: 09/23/18 20:59 Last Admin: 07/29/18 21:26 Dose: 50 mg Ascorbic Acid (Vitamin C) 500 mg PO DAILY [facility] Stop: 09/24/18 08:59 Last Admin: 07/30/18 09:52 Dose: 500 mg Aspirin (Aspirin Chewable) 81 mg PO DAILY [facility] Stop: 09/23/18 08:59 Last Admin: 07/30/18 09:52 Dose: 81 mg Baclofen (Lioresal) 10 mg PO Q8HR [facility] Stop: 09/23/18 12:59 Last Admin: 07/30/18 12:14 Dose: 10 mg Docusate Sodium (Colace) 100 mg PO DAILY [facility] Stop: 09/23/18 08:59 Last Admin: 07/30/18 09:23 Dose: Not Given Duloxetine HCl (Cymbalta) 30 mg PO DAILY [facility] Stop: 09/23/18 09:14 Last Admin: 07/30/18 09:53 Dose: 30 mg Hydromorphone HCl (Dilaudid) 1 mg IVP Q4HR PRN PRN Reason: Pain (Moderate) Stop: 09/23/18 02:55 Hydromorphone HCl (Dilaudid) 2 mg IVP Q4HR PRN PRN Reason: Pain (Severe) Stop: 09/23/18 02:55 Last Admin: 07/30/18 13:49 Dose: 2 mg Dextrose/Sodium Chloride (D5-0.45ns) 1,000 mls @ 50 mls/hr IV .Q20H [facility] Stop: 09/23/18 02:55 Last Admin: 07/30/18 05:43 Dose: 50 mls/hr Levofloxacin (Levaquin Pb) 500 mg in 100 mls @ 100 mls/hr IV Q24HR [facility] Stop: 09/23/18 20:59 Last Admin: 07/29/18 21:26 Dose: 100 mls/hr Insulin Aspart (Novolog Insulin Sliding Scale) 0 units SUBQ ACHS [facility]; Protocol Stop: 09/23/18 11:29 Last Admin: 07/30/18 12:15 Dose: Not Given Lactobacillus Rhamnosus (Culturelle 15b) 1 each PO DAILY [facility] Stop: 09/24/18 08:59 Last Admin: 07/30/18 09:53 Dose: 1 each Lisinopril (Zestril) 10 mg PO DAILY [facility] Stop: 09/23/18 08:59 Last Admin: 07/30/18 09:53 Dose: 10 mg Miscellaneous (Probiotic Screen) 1 ea MC PRN PRN PRN Reason: PROTOCOL Stop: 09/27/18 11:41 Ondansetron HCl (Zofran) 4 mg IV Q6H PRN PRN Reason: Nausea / Vomiting Stop: 09/23/18 09:01 Pregabalin (Lyrica) 150 mg PO BID [facility] Stop: 09/23/18 09:14 Last Admin: 07/30/18 09:53 Dose: 150 mg Vitamin D (Vitamin D3) 4,000 iu PO DAILY [facility] Stop: 09/23/18 09:14 Last Admin: 07/30/18 09:52 Dose: 4,000 iu General: Alert, No acute distress HEENT: Atraumatic Neck: no Thyromegaly Cardiovascular: Regular rate, Normal S1, Normal S2 Lungs: Clear to auscultation, Normal air movement Abdomen: Bowel sounds, Soft, Other (colostomy bag with brown stool) - Procedures Procedures: Procedures Procedure Code Date INSPECTION OF LOWER INTESTINAL TRACT, ENDO [id number] 05/20/18 Assessment/Plan - Problem List Patient Problems: All Active Problems Chronic pain syndrome (Acute) G89.4 Diabetes (Acute) E11.9 Gastrointestinal bleed (Acute) K92.2 HTN (hypertension) (Acute) I10 Nutritional Asmnt/Malnutr-PDOC - Dietary Evaluation Malnutrition Findings (Please click <Entered> for more info): Nutritional Asmnt/Malnutrition Start: 07/28/18 16: 47 Text: Status: Complete Freq: Protocol: Document 07/28/18 16:47 JUNIOR (Rec: 07/28/18 17:05 WAYNE ANTONIO-[email or web address]) Nutritional Asmnt/Malnutrition Patient General Information Nutritional Screening Moderate Risk Consult Diagnosis hyponatremia, bleeding at colostomy Pertinent Medical Hx/Surgical Hx bilateral AKA, HTN, DM, chronic pain syndrom, colostomy Subjective Information Consult received for stage IV pressure ulcer right buttocks. Pt seen lying in bed at time of visit, awake, not willing to talk. Pt reported poor appetite, abdominal pain, not interested in infomation of diabetic diet. Per EMR, PO intake 45-75%. Glucose 232 at admission noted. Per nurse, no more bleeding, stool OB possitive. Current Diet Order/ Nutrition Support CCHO 60gm, 2 gram sodium Pertinent Medications vit C, D5-0.45ns, olace, novolog, culturelle, levaquin, vit D3 Pertinent Labs 07/28 glucose 137, POC 126-224 9/2 Na 134, Cr 0.6, Glucose 146, POC 131-159 9/1 Cr 0.6, glucose 176, A1c 8 .1, POC 125-140 Nutritional Hx/Data Height 1.52 m Height (Calculated Centimeters) 152.4 Current Weight (lbs) 75.296 kg Weight (Calculated Kilograms) 75.3 Weight (Calculated Grams) 74834.3 [place] Body Weight 106 Body Mass Index (BMI) 32.4 Weight Status Overweight GI Symptoms GI Symptoms None Last BM none Difficult in: None Skin Integrity/Comment: Wound care note: stage IV pressure ulcer, erythema to buttocks/sacral Current %PO Fair (50-74%) Estimated Nutritional Goals BEE in Kcals: Adj wt of IBW Calories/Kcals/Kg 25-30 Kcals Calculated 9600-2973 Protein: Adj wt of IBW Protein g/k.2 Protein Calculated 66 Fluid: ml 1375-1650ml (1ml/kcal) Nutritional Problem 2. Problem Problem inadequate food intake Etiology poor appetite, abd pain Signs/Symptoms: PO intake 45-75% 1. Problem Problem altered nutrition related labs Etiology hx of DM Signs/Symptoms: glucose 137-176, A1c 8.1, Malnutrition Alert Is there a minimum of two criteria No selected? Query Text:Check all the applicable criteria. A minimum of two criteria are recommended for diagnosis of either severe or non-severe malnutrition. Malnutrition Related to Morbid Obesity Malnutrition related to morbid obesity No Intervention/Recommendation Comments 1. Continue with CCHO 60gm and 2g Na diet as ordered. 2. Consider adding Carlos BID to help with wound healing. 3. Monitor PO intake, wt, GI function and labs and skin integrity 4. F/U as moderate risk in 3-5 days, 07/31-08/02, PO check 07/30 Expected Outcomes/Goals Expected Outcomes/Goals 1. PO intake to meet at least 75% of nutritional needs. 2. Wt stability, skin to remain intact, labs to approach WNL. 1. Continue with current diet as ordered. 2. Monitor PO intake, wt, labs and skin integrity 3. F/U as
--- NOTE | 2018-07-30 18:46 | Infectious Disease Prog Note ---
Infectious Disease Subjective - Review of Systems Service Date: 07/30/18 Subjective: cc incrcerated ventral hernioa hpi- sen by dr whitaker on abx ros no efvr o/e vs chest claer abd soft Infectious Disease Objective - Results Result Diagrams: 07/28/18 08:00 07/28/18 08:00 Recent Labs: Laboratory Last Values WBC 8.9 Th/cmm (4.8-10.8) 07/28/18 08:00 RBC 5.29 Mil/cmm (4.30-5.70) 07/28/18 08:00 Hgb 15.3 gm/dL (12-16) 07/28/18 08:00 Hct 45.5 % (41.0-60) 07/28/18 08:00 MCV 86.1 fl (80-99) 07/28/18 08:00 MCH 28.9 pg (26.0-30.0) 07/28/18 08:00 MCHC Differential 33.6 pg (28.0-36.0) 07/28/18 08:00 RDW 14.6 % (11.5-20.0) 07/28/18 08:00 Plt Count 238 Th/cmm (150-400) 07/28/18 08:00 MPV 7.8 fl 07/28/18 08:00 Neutrophils % 69.0 % (40.0-80.0) 07/28/18 08:00 Lymphocytes % 15.7 % (20.0-50.0) L 07/28/18 08:00 Monocytes % 9.8 % (2.0-10.0) 07/28/18 08:00 Eosinophils % 4.0 % (0.0-5.0) 07/28/18 08:00 Basophils % 1.5 % (0.0-2.0) 07/28/18 08:00 PT 9.6 SECONDS (9.5-11.5) 07/24/18 23:55 INR 0.92 (0.5-1.4) 07/24/18 23:55 PTT (Actin FS) 29.6 SECONDS (26.0-38.0) 07/24/18 23:55 Sodium 136 mEq/L (136-145) 07/28/18 08:00 Potassium 3.9 mEq/L (3.5-5.1) 07/28/18 08:00 Chloride 104 mEq/L (98-107) 07/28/18 08:00 Carbon Dioxide 26.4 mEq/L (21.0-31.0) 07/28/18 08:00 Anion Gap 9.5 (7.0-16.0) 07/28/18 08:00 BUN 10 mg/dL (7-25) 07/28/18 08:00 Creatinine 0.7 mg/dL (0.7-1.3) 07/28/18 08:00 Est GFR ( Amer) > 60.0 ml/min (>90) 07/28/18 08:00 Est GFR (Non-Af Amer) > 60.0 ml/min 07/28/18 08:00 BUN/Creatinine Ratio 14.3 07/28/18 08:00 Glucose 137 mg/dL (70-105) H 07/28/18 08:00 POC Glucose 108 MG/DL (70 - 105) H 07/30/18 17:47 Hemoglobin A1c % 8.1 % (4.0-6.0) H 07/25/18 06:05 Whole Bld Lactic Acid 1.00 mmol/L (0.60-1.99) 07/25/18 00:00 Calcium 8.8 mg/dL (8.6-10.3) 07/28/18 08:00 Total Bilirubin 0.4 mg/dL (0.3-1.0) 07/26/18 05:30 AST 15 U/L (13-39) 07/26/18 05:30 ALT 11 U/L (7-52) 07/26/18 05:30 Alkaline Phosphatase 59 U/L (34-104) 07/26/18 05:30 Total Protein 6.0 gm/dL (6.0-8.3) 07/26/18 05:30 Albumin 3.1 gm/dL (4.2-5.5) L 07/26/18 05:30 Globulin 2.9 gm/dL 07/26/18 05:30 Albumin/Globulin Ratio 1.1 (1.0-1.8) 07/26/18 05:30 Amylase 16 U/L (29-103) L 07/24/18 23:55 Lipase 10 U/L (11-82) L 07/24/18 23:55 Urine Source CLEAN C 07/25/18 15:44 Urine Color YELLOW 07/25/18 15:44 Urine Clarity CLOUDY (CLEAR) 07/25/18 15:44 Urine pH 6.0 (4.6 - 8.0) 07/25/18 15:44 Ur Specific [place] 1.020 (1.005-1.030) 07/25/18 15:44 Urine Protein 30 mg/dL (NEGATIVE) H 07/25/18 15:44 Urine Glucose (UA) NEGATIVE mg/dL (NEGATIVE) 07/25/18 15:44 Urine Ketones NEGATIVE mg/dL (NEGATIVE) 07/25/18 15:44 Urine Blood TRACE (NEGATIVE) 07/25/18 15:44 Urine Nitrate NEGATIVE (NEGATIVE) 07/25/18 15:44 Urine Bilirubin NEGATIVE (NEGATIVE) 07/25/18 15:44 Urine Urobilinogen 0.2 E.U./dL (0.2 - 1.0) 07/25/18 15:44 Ur Leukocyte Esterase LARGE (NEGATIVE) H 07/25/18 15:44 Urine RBC 2-5 /hpf (0-5) H 07/25/18 15:44 Urine WBC 50-100 /hpf (0-5) H 07/25/18 15:44 Ur Epithelial Cells OCCASIONAL /lpf (FEW) 07/25/18 15:44 Urine Bacteria MODERATE /hpf (NONE SEEN) H 07/25/18 15:44 Stool Occult Blood POSITIVE (NEGATIVE) H 07/27/18 06:15 Blood Type O NEGATIVE 07/25/18 03:05 Antibody Screen NEGATIVE 07/25/18 03:05 - Physical Exam Vitals and I&O: Vital Signs Temp 97.4 F 07/30/18 15:42 Pulse 78 07/30/18 15:42 Resp 18 07/30/18 15:42 BP 153/94 07/30/18 15:42 Pulse Ox 98 07/30/18 15:42 Intake & Output 07/29/18 07/30/18 07/30/18 18:59 06:59 18:59 Intake Total 1950 1800 Output Total 2280 1550 Balance -330 250 Weight (lbs) 75.614 kg 77.564 kg Intake: Intake, IV Amount 1000 D5-0.45NS 1,000 ml @ 50 1000 mls/hr IV .Q20H [facility] Rx#: [id number] Oral 1950 800 Output: Urine 2250 1500 Other 30 50 Other: # Voids 1 # Bowel Movements 1 Stool Characteristics Soft Soft Brown Brown Weight Source Bedscale Bedscale Active Medications: Current Medications Acetaminophen (Tylenol) 650 mg PO Q4HR PRN PRN Reason: FEVER TEMP >101, AND MILD PAIN Stop: 09/23/18 09:01 Acetaminophen (Tylenol Extra Strength) 1,000 mg PO Q4HR PRN PRN Reason: Pain (Moderate) Stop: 09/23/18 09:01 Al Hydrox/Mg Hydrox/Simethicone (Maalox) 30 ml PO Q4H PRN PRN Reason: Abdominal Pain Stop: 09/23/18 09:01 Last Admin: 07/29/18 18:00 Dose: 30 ml Amitriptyline HCl (Elavil) 50 mg PO HS [facility] Stop: 09/23/18 20:59 Last Admin: 07/29/18 21:26 Dose: 50 mg Ascorbic Acid (Vitamin C) 500 mg PO DAILY [facility] Stop: 09/24/18 08:59 Last Admin: 07/30/18 09:52 Dose: 500 mg Aspirin (Aspirin Chewable) 81 mg PO DAILY [facility] Stop: 09/23/18 08:59 Last Admin: 07/30/18 09:52 Dose: 81 mg Baclofen (Lioresal) 10 mg PO Q8HR [facility] Stop: 09/23/18 12:59 Last Admin: 07/30/18 12:14 Dose: 10 mg Docusate Sodium (Colace) 100 mg PO DAILY [facility] Stop: 09/23/18 08:59 Last Admin: 07/30/18 09:23 Dose: Not Given Duloxetine HCl (Cymbalta) 30 mg PO DAILY [facility] Stop: 09/23/18 09:14 Last Admin: 07/30/18 09:53 Dose: 30 mg Hydromorphone HCl (Dilaudid) 1 mg IVP Q4HR PRN PRN Reason: Pain (Moderate) Stop: 09/23/18 02:55 Hydromorphone HCl (Dilaudid) 2 mg IVP Q4HR PRN PRN Reason: Pain (Severe) Stop: 09/23/18 02:55 Last Admin: 07/30/18 17:40 Dose: 2 mg Dextrose/Sodium Chloride (D5-0.45ns) 1,000 mls @ 50 mls/hr IV .Q20H [facility] Stop: 09/23/18 02:55 Last Admin: 07/30/18 05:43 Dose: 50 mls/hr Levofloxacin (Levaquin Pb) 500 mg in 100 mls @ 100 mls/hr IV Q24HR [facility] Stop: 09/23/18 20:59 Last Admin: 07/29/18 21:26 Dose: 100 mls/hr Insulin Aspart (Novolog Insulin Sliding Scale) 0 units SUBQ ACHS [facility]; Protocol Stop: 09/23/18 11:29 Last Admin: 07/30/18 18:07 Dose: Not Given Lactobacillus Rhamnosus (Culturelle 15b) 1 each PO DAILY [facility] Stop: 09/24/18 08:59 Last Admin: 07/30/18 09:53 Dose: 1 each Lisinopril (Zestril) 10 mg PO DAILY [facility] Stop: 09/23/18 08:59 Last Admin: 07/30/18 09:53 Dose: 10 mg Miscellaneous (Probiotic Screen) 1 ea MC PRN PRN PRN Reason: PROTOCOL Stop: 09/27/18 11:41 Ondansetron HCl (Zofran) 4 mg IV Q6H PRN PRN Reason: Nausea / Vomiting Stop: 09/23/18 09:01 Pregabalin (Lyrica) 150 mg PO BID [facility] Stop: 09/23/18 09:14 Last Admin: 07/30/18 17:40 Dose: 150 mg Vitamin D (Vitamin D3) 4,000 iu PO DAILY [facility] Stop: 09/23/18 09:14 Last Admin: 07/30/18 09:52 Dose: 4,000 iu - Procedures Procedures: Procedures Procedure Code Date INSPECTION OF LOWER INTESTINAL TRACT, ENDO [id number] 05/20/18 Infectious Disease Assmt/Plan - Problem List Patient Problems: All Active Problems Chronic pain syndrome (Acute) G89.4 Diabetes (Acute) E11.9 Gastrointestinal bleed (Acute) K92.2 HTN (hypertension) (Acute) I10 Nutritional Asmnt/Malnutr-PDOC - Dietary Evaluation Malnutrition Findings (Please click <Entered> for more info): Nutritional Asmnt/Malnutrition Start: 07/28/18 16: 47 Text: Status: Complete Freq: Protocol: Document 07/28/18 16:47 LCKRISTIG (Rec: 07/28/18 17:05 KRISTI [email or web address]) Nutritional Asmnt/Malnutrition Patient General Information Nutritional Screening Moderate Risk Consult Diagnosis hyponatremia, bleeding at colostomy Pertinent Medical Hx/Surgical Hx bilateral AKA, HTN, DM, chronic pain syndrom, colostomy Subjective Information Consult received for stage IV pressure ulcer right buttocks. Pt seen lying in bed at time of visit, awake, not willing to talk. Pt reported poor appetite, abdominal pain, not interested in infomation of diabetic diet. Per EMR, PO intake 45-75%. Glucose 232 at admission noted. Per nurse, no more bleeding, stool OB possitive. Current Diet Order/ Nutrition Support CCHO 60gm, 2 gram sodium Pertinent Medications vit C, D5-0.45ns, olace, novolog, culturelle, levaquin, vit D3 Pertinent Labs 07/28 glucose 137, POC 126-224 07/26 Na 134, Cr 0.6, Glucose 146, POC 131-159 9 Cr 0.6, glucose 176, A1c 8 .1, POC 125-140 Nutritional Hx/Data Height 1.52 m Height (Calculated Centimeters) 152.4 Current Weight (lbs) 75.296 kg Weight (Calculated Kilograms) 75.3 Weight (Calculated Grams) 90626.3 [place] Body Weight 106 Body Mass Index (BMI) 32.4 Weight Status Overweight GI Symptoms GI Symptoms None Last BM none Difficult in: None Skin Integrity/Comment: Wound care note: stage IV pressure ulcer, erythema to buttocks/sacral Current %PO Fair (50-74%) Estimated Nutritional Goals BEE in Kcals: Adj wt of IBW Calories/Kcals/Kg 25-30 Kcals Calculated 4538-0814 Protein: Adj wt of IBW Protein g/k.2 Protein Calculated 66 Fluid: ml 1375-1650ml (1ml/kcal) Nutritional Problem 2. Problem Problem inadequate food intake Etiology poor appetite, abd pain Signs/Symptoms: PO intake 45-75% 1. Problem Problem altered nutrition related labs Etiology hx of DM Signs/Symptoms: glucose 137-176, A1c 8.1, Malnutrition Alert Is there a minimum of two criteria No selected? Query Text:Check all the applicable criteria. A minimum of two criteria are recommended for diagnosis of either severe or non-severe malnutrition. Malnutrition Related to Morbid Obesity Malnutrition related to morbid obesity No Intervention/Recommendation Comments 1. Continue with CCHO 60gm and 2g Na diet as ordered. 2. Consider adding Carlos BID to help with wound healing. 3. Monitor PO intake, wt, GI function and labs and skin integrity 4. F/U as moderate risk in 3-5 days, 07/31-08/02, PO check 07/30 Expected Outcomes/Goals Expected Outcomes/Goals 1. PO intake to meet at least 75% of nutritional needs. 2. Wt stability, skin to remain intact, labs to approach WNL. 1. Continue with current diet as ordered. 2. Monitor PO intake, wt, labs and skin integrity 3. F/U as
[2018-07-30] MEDS: Levofloxacin 500mg/100mL 500 MG/100 ML BAG IV SCH (20:50)
[2018-07-31] MEDS: D5-0.45NS 1,000 ML IV SCH ×2 (01:56→16:33)
[2018-07-31] MEDS: HYDROmorphone 2 mg/mL 1mL Vial IVP PRN ×4 (03:42→21:42)
[2018-07-31 05:40] LABS: % BASOPHILS 3.4 % (0.0-2.0); % EOSINOPHILS 4.1 % (0.0-5.0); % LYMPHOCYTES 14.6 % (20.0-50.0); % NEUTROPHILS 69.9 % (40.0-80.0); BASOPHILE ABSOLUTE 0.4 Th/cumm (0-0.2); EOSINOPHILE ABSOLUTE 0.5 Th/cmm (0.1-0.4); HEMATOCRIT 48.3 % (41.0-60); HEMOGLOBIN 15.8 gm/dL (12-16); LYMPHOCYTE ABSOLUTE 1.7 Th/cmm (1.5-3.0); MEAN CELL VOLUME 87.4 fl (80-99); MEAN CORPUSCULAR HEMOGLOBIN 28.6 pg (26.0-30.0); MEAN CORPUSCULAR HGB CONC 32.8 pg (28.0-36.0); MEAN PLATELET VOLUME 7.5 fl; MONOCYTE ABSOLUTE 0.9 Th/cmm (0.3-1.0); NEUTROPHILE ABSOLUTE 7.9 Th/cmm (1.8-8.0); PLATELET COUNT 279 Th/cmm (150-400); RED BLOOD COUNT 5.53 Mil/cmm (4.30-5.70); RED CELL DISTRIBUTION WIDTH 14.4 % (11.5-20.0); WHITE BLOOD COUNT 11.4 Th/cmm (4.8-10.8)
[2018-07-31 05:55] LABS: ALB/GLOB RATIO 1.1 (1.0-1.8); ALBUMIN 3.2 gm/dL (4.2-5.5); ALKALINE PHOSPHATASE 73 U/L (34-104); ANION GAP 10.4 (7.0-16.0); BILIRUBIN,TOTAL 0.4 mg/dL (0.3-1.0); BUN - UREA NITROGEN 10 mg/dL (7-25); CALCIUM SERUM 8.8 mg/dL (8.6-10.3); CARBON DIOXIDE 27.5 mEq/L (21.0-31.0); CHLORIDE 103 mEq/L (98-107); CREATININE - SERUM 0.8 mg/dL (0.7-1.3); GFR AFRICAN-AMERICAN > 60.0 ml/min (>90); GFR NON AFRICAN-AMERICAN > 60.0 ml/min; GLUCOSE 135 mg/dL (70-105); POTASSIUM SERUM 3.9 mEq/L (3.5-5.1); SGOT 17 U/L (13-39); SGPT/ALT 19 U/L (7-52); SODIUM SERUM 137 mEq/L (136-145); TOTAL PROTEIN,SERUM 6.2 gm/dL (6.0-8.3)
[2018-07-31] MEDS: INSULIN ASPART SLIDING SCALE 100 UNITS/ML UNIT SUBQ SCH ×4 (06:50→21:37)
[2018-07-31] MEDS ORDERED: Venelex 60gm Tube TP ONE (07:38)
--- NOTE | 2018-07-31 09:04 | Diagnostic Imaging Report ---
Portable chest x-ray HISTORY: Shortness of breath The heart appears somewhat enlarged. Atherosclerotic calcification seen in the aorta. No acute focal pulmonary processes. No hilar or mediastinal abnormalities. IMPRESSION: 1. No acute focal pulmonary processes 2. Somewhat generous heart size with atherosclerotic vascular changes
[2018-07-31] MEDS: Aspirin 81mg Chewable Tab PO SCH (09:26)
[2018-07-31] MEDS: Lactobacillus Rhamnosus GG 15 Billion CFU CAP.SPRINK PO SCH (09:27)
[2018-07-31] MEDS: Vitamin D3 2,000 IU SGL PO SCH (09:27)
[2018-07-31] MEDS: Multivitamin w/ Minerals Tab PO SCH (09:27)
[2018-07-31] MEDS ORDERED: fentaNYL Citrate 100 mcg/2mL Vial ONE ×2 (10:11)
[2018-07-31] MEDS ORDERED: Sodium Chloride 0.45% 1,000 ML IV SCH (10:15)
[2018-07-31] MEDS ORDERED: Propofol **SURGERY USE ONLY** 20 ML IV ONE (10:23)
[2018-07-31] MEDS ORDERED: Neostigmine 10mg/10mL Vial ONE (10:23)
--- NOTE | 2018-07-31 10:27 | Consultation ---
DATE OF CONSULTATION: 07/30/2018 SURGICAL CONSULTATION REFERRING PHYSICIAN: Dr. Kraft. REASON FOR CONSULTATION: Abdominal pain. Thank you for referring this patient to me. HISTORY OF PRESENT ILLNESS: This is a 57-year-old male, [place] [facility] resident who came in because of bleeding through the colostomy stoma. This has been present for a few days, prompting admission. 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 He claims increasing abdominal pain and development of protrusion around the area of the stoma for the last several months and the pain has been persisting requiring this admission, constant medication for relief. LABORATORY STUDIES: Show WBC slightly elevated to 11,400, blood sugar on admission was 224, was occult blood in the stools. He underwent CT scan of the abdomen and this showed a narrow based hernia located along the left lower abdomen within the left rectus abdominis muscle with protrusion of small and large bowel loops. There is a narrowing of the small bowel, which is opacified in this region. There are copious amount of stool throughout the colon. The chest x-ray is unremarkable. PHYSICAL EXAMINATION: The patient appears to be oriented, but is extremely anxious. The colostomy stoma is without blood now, but there is a large hernia surrounding the stoma site. There is tenderness on palpation in this area. Bilateral above-knee amputation, which is rather high close to the inguinal area. There is a large stage IV right hip decubitus ulcer with bone palpated at the base. IMPRESSION: 1. Stomal hernia, the colostomy site. 2. Stage IV right hip decubitus ulcer. 3. Status post bilateral above-knee amputation. RECOMMENDATIONS: In view of the patient's persistent pain around the stoma site repair of the hernia as needed as I suspect there may be incarceration of bowel through the hernia. Debridement and application of wound VAC will also be done. Dr. Kraft was called over the phone. Discussed treatment options and a call was made to the brother and a message was left. He has not answered back. The patient aware of the possible complications of the procedure and will proceed. JOB# [id number]
[2018-07-31] MEDS ORDERED: Meperidine 50 mg/mL 1mL Syr ONE ×2 (11:53→11:54)
--- NOTE | 2018-07-31 12:10 | Operative Report ---
DATE OF SURGERY: 07/31/2018 PREOPERATIVE DIAGNOSES: 1. Incarcerated parastomal hernia, lower abdomen. 2. Stage IV right hip ulcer. 3. Hypertension. 4. Diabetes mellitus. 5. Anxiety disorder. 6. Blindness bilateral. 7. Bilateral above-knee amputations. POSTOPERATIVE DIAGNOSES: 1. Incarcerated parastomal hernia, lower abdomen. 2. Stage IV right hip ulcer. 3. Hypertension. 4. Diabetes mellitus. 5. Anxiety disorder. 6. Blindness bilateral. 7. Bilateral above-knee amputations. OPERATION DONE: Exploratory laparotomy with: 1. Primary repair of parastomal hernia with reduction of incarcerated omentum and bowel. 2. Lysis of adhesions. SURGEON: Jt Salvador M.D. ANESTHESIA: General. ANESTHESIOLOGIST: Dr. Marshall. DESK INTERVIEWER: Dr. Griffin. DESCRIPTION OF PROCEDURE: The patient was given general anesthesia. The abdomen was prepped with Betadine and draped in appropriate manner. The stoma was sutured closed with 2-0 silk. A median abdominal incision below the umbilicus was made. Bleeders were coagulated. The abdominal cavity was entered and a large parastomal hernia was noted. Adhesions to the anterior abdominal wall was lysed and the omentum which had incarcerated into the hernia was lysed and both down into the abdominal cavity and reduced. Bowel also reduced mostly colon. Colon content was hard fecal stools. The fascia was identified all around the exit site of the colon and this was approximated utilizing interrupted [id number] sutures, #1 Nurolon. It was done above and below the exit site of the proximal sigmoid colon brought out as a colostomy. Following satisfactory hemostasis, the subcutaneous tissue closed with #1 Vicryl. The abdominal incision was then closed with running suture of #1 PDS and the subcutaneous tissues were closed with 3-0 Vicryl and the skin with subcuticular suture of 4-0 Vicryl. A sterile dressing consisting of Dermabond, 4 x 4 and Op-Site was applied over the incision and the colostomy bag was applied. The patient tolerated the procedure well. JOB# [id number]
[2018-07-31] MEDS ORDERED: Meperidine 25 mg/mL 1mL Syr IVP PRN (12:16)
--- NOTE | 2018-07-31 13:01 | Operative Report ---
DATE OF SURGERY: 07/31/2018 PREOPERATIVE DIAGNOSES: 1. Stage IV right hip decubitus ulcer. 2. Status post parastomal colostomy, hernia repair. 3. Diabetes mellitus. 4. Blindness. 5. Hypertension. POSTOPERATIVE DIAGNOSES: 1. Stage IV right hip decubitus ulcer. 2. Status post parastomal colostomy, hernia repair. 3. Diabetes mellitus. 4. Blindness. 5. Hypertension. OPERATION DONE: 1. Excisional debridement of right hip decubitus ulcer. 2. Application of wound VAC. SURGEON: Jt Salvador M.D. GYNECOLOGIST: Dr. Griffin. ANESTHESIA: General. ANESTHESIOLOGIST: Dr. Marshall. DESCRIPTION OF PROCEDURE: The patient was placed in the left lateral decubitus position. The ulcer was prepped with Betadine and draped in appropriate manner. The ulcer measuring about 6 x 3 cm with a depth all the way down to the bone was debrided. Most of the tissues were good granulation. Following satisfactory hemostasis, Venelex was applied in the wound and silver sponge was shaped to fit the ulcer and an extension into the anterior aspect of the same sponge was made. So pressures were not be placed on the area involved. This anchored in place with the adhesives. The patient tolerated the procedure well. [facility]# [id number]
[2018-07-31] MEDS: HYDROmorphone 1 mg/mL 1mL Syr IVP PRN (19:29)
[2018-07-31] MEDS: Levofloxacin 500mg/100mL 500 MG/100 ML BAG IV SCH (21:40)
--- NOTE | 2018-07-31 23:41 | Infectious Disease Prog Note ---
Infectious Disease Subjective - Review of Systems Service Date: 07/31/18 Subjective: There is no new change, no fever. Infectious Disease Objective - Results Result Diagrams: 07/31/18 05:25 07/31/18 05:25 Recent Labs: Laboratory Last Values WBC 11.4 Th/cmm (4.8-10.8) H 07/31/18 05:25 RBC 5.53 Mil/cmm (4.30-5.70) 07/31/18 05:25 Hgb 15.8 gm/dL (12-16) 07/31/18 05:25 Hct 48.3 % (41.0-60) 07/31/18 05:25 MCV 87.4 fl (80-99) 07/31/18 05:25 MCH 28.6 pg (26.0-30.0) 07/31/18 05:25 MCHC Differential 32.8 pg (28.0-36.0) 07/31/18 05:25 RDW 14.4 % (11.5-20.0) 07/31/18 05:25 Plt Count 279 Th/cmm (150-400) 07/31/18 05:25 MPV 7.5 fl 07/31/18 05:25 Neutrophils % 69.9 % (40.0-80.0) 07/31/18 05:25 Lymphocytes % 14.6 % (20.0-50.0) L 07/31/18 05:25 Monocytes % 8.0 % (2.0-10.0) 07/31/18 05:25 Eosinophils % 4.1 % (0.0-5.0) 07/31/18 05:25 Basophils % 3.4 % (0.0-2.0) H 07/31/18 05:25 PT 9.6 SECONDS (9.5-11.5) 07/24/18 23:55 INR 0.92 (0.5-1.4) 07/24/18 23:55 PTT (Actin FS) 29.6 SECONDS (26.0-38.0) 07/24/18 23:55 Sodium 137 mEq/L (136-145) 07/31/18 05:25 Potassium 3.9 mEq/L (3.5-5.1) 07/31/18 05:25 Chloride 103 mEq/L (98-107) 07/31/18 05:25 Carbon Dioxide 27.5 mEq/L (21.0-31.0) 07/31/18 05:25 Anion Gap 10.4 (7.0-16.0) 07/31/18 05:25 BUN 10 mg/dL (7-25) 07/31/18 05:25 Creatinine 0.8 mg/dL (0.7-1.3) 07/31/18 05:25 Est GFR ( Amer) > 60.0 ml/min (>90) 07/31/18 05:25 Est GFR (Non-Af Amer) > 60.0 ml/min 07/31/18 05:25 BUN/Creatinine Ratio 12.5 07/31/18 05:25 Glucose 135 mg/dL (70-105) H 07/31/18 05:25 POC Glucose 112 MG/DL (70 - 105) H 07/31/18 21:29 Hemoglobin A1c % 8.1 % (4.0-6.0) H 07/25/18 06:05 Whole Bld Lactic Acid 1.00 mmol/L (0.60-1.99) 07/25/18 00:00 Calcium 8.8 mg/dL (8.6-10.3) 07/31/18 05:25 Total Bilirubin 0.4 mg/dL (0.3-1.0) 07/31/18 05:25 AST 17 U/L (13-39) 07/31/18 05:25 ALT 19 U/L (7-52) 07/31/18 05:25 Alkaline Phosphatase 73 U/L (34-104) 07/31/18 05:25 Total Protein 6.2 gm/dL (6.0-8.3) 07/31/18 05:25 Albumin 3.2 gm/dL (4.2-5.5) L 07/31/18 05:25 Globulin 3.0 gm/dL 07/31/18 05:25 Albumin/Globulin Ratio 1.1 (1.0-1.8) 07/31/18 05:25 Amylase 16 U/L (29-103) L 07/24/18 23:55 Lipase 10 U/L (11-82) L 07/24/18 23:55 Urine Source CLEAN C 09/01/18 15:44 Urine Color YELLOW 07/25/18 15:44 Urine Clarity CLOUDY (CLEAR) 07/25/18 15:44 Urine pH 6.0 (4.6 - 8.0) 07/25/18 15:44 Ur Specific [place] 1.020 (1.005-1.030) 07/25/18 15:44 Urine Protein 30 mg/dL (NEGATIVE) H 07/25/18 15:44 Urine Glucose (UA) NEGATIVE mg/dL (NEGATIVE) 07/25/18 15:44 Urine Ketones NEGATIVE mg/dL (NEGATIVE) 07/25/18 15:44 Urine Blood TRACE (NEGATIVE) 07/25/18 15:44 Urine Nitrate NEGATIVE (NEGATIVE) 07/25/18 15:44 Urine Bilirubin NEGATIVE (NEGATIVE) 07/25/18 15:44 Urine Urobilinogen 0.2 E.U./dL (0.2 - 1.0) 07/25/18 15:44 Ur Leukocyte Esterase LARGE (NEGATIVE) H 07/25/18 15:44 Urine RBC 2-5 /hpf (0-5) H 07/25/18 15:44 Urine WBC 50-100 /hpf (0-5) H 07/25/18 15:44 Ur Epithelial Cells OCCASIONAL /lpf (FEW) 07/25/18 15:44 Urine Bacteria MODERATE /hpf (NONE SEEN) H 07/25/18 15:44 Stool Occult Blood POSITIVE (NEGATIVE) H 07/27/18 06:15 Blood Type O NEGATIVE 07/25/18 03:05 Antibody Screen NEGATIVE 07/25/18 03:05 - Physical Exam Vitals and I&O: Vital Signs Temp 98 F 07/31/18 16:00 Pulse 84 07/31/18 18:00 Resp 12 07/31/18 18:00 BP 131/76 07/31/18 18:00 Pulse Ox 94 07/31/18 18:00 Intake & Output 07/31/18 07/31/18 08/01/18 06:59 18:59 06:59 Intake Total 4000 300 100 Output Total 3500 900 Balance 500 -600 100 Weight (lbs) 78.018 kg 78.018 kg Intake: Intake, IV Amount 2100 100 D5-0.45NS 1,000 ml @ 50 1000 mls/hr IV .Q20H [facility] Rx#: [id number] Levofloxacin 500mg/100mL 100 100 500 mg In 100 ml @ 100 mls/hr IV Q24HR [facility] Rx#: [id number] Oral 1900 300 Output: Urine 3500 900 Other: # Bowel Movements 1 Stool Characteristics Soft Soft Brown Formed Weight Source Bedscale Bedscale Active Medications: Current Medications Acetaminophen (Tylenol) 650 mg PO Q4HR PRN PRN Reason: FEVER TEMP >101, AND MILD PAIN Stop: 09/23/18 09:01 Acetaminophen (Tylenol Extra Strength) 1,000 mg PO Q4HR PRN PRN Reason: Pain (Moderate) Stop: 09/23/18 09:01 Al Hydrox/Mg Hydrox/Simethicone (Maalox) 30 ml PO Q4H PRN PRN Reason: Abdominal Pain Stop: 09/23/18 09:01 Last Admin: 07/29/18 18:00 Dose: 30 ml Amitriptyline HCl (Elavil) 50 mg PO HS [facility] Stop: 09/23/18 20:59 Last Admin: 07/31/18 21:43 Dose: 50 mg Ascorbic Acid (Vitamin C) 500 mg PO DAILY [facility] Stop: 09/24/18 08:59 Last Admin: 07/31/18 09:26 Dose: Not Given Aspirin (Aspirin Chewable) 81 mg PO DAILY [facility] Stop: 09/23/18 08:59 Last Admin: 07/31/18 09:26 Dose: Not Given Baclofen (Lioresal) 10 mg PO Q8HR [facility] Stop: 09/23/18 12:59 Last Admin: 07/31/18 21:43 Dose: 10 mg Docusate Sodium (Colace) 100 mg PO DAILY [facility] Stop: 09/23/18 08:59 Last Admin: 07/31/18 09:27 Dose: Not Given Duloxetine HCl (Cymbalta) 30 mg PO DAILY [facility] Stop: 09/23/18 09:14 Last Admin: 07/31/18 09:27 Dose: Not Given Hydromorphone HCl (Dilaudid) 1 mg IVP Q4HR PRN PRN Reason: Pain (Moderate) Stop: 09/23/18 02:55 Last Admin: 07/31/18 19:29 Dose: 1 mg Hydromorphone HCl (Dilaudid) 2 mg IVP Q4HR PRN PRN Reason: Pain (Severe) Stop: 09/23/18 02:55 Last Admin: 07/31/18 21:42 Dose: 2 mg Levofloxacin (Levaquin Pb) 500 mg in 100 mls @ 100 mls/hr IV Q24HR [facility] Stop: 09/23/18 20:59 Last Infusion: 07/31/18 22:40 Dose: Infused Dextrose/Sodium Chloride (D5-0.45ns) 1,000 mls @ 50 mls/hr IV .Q20H [facility] Stop: 09/29/18 14:13 Last Admin: 07/31/18 16:33 Dose: 50 mls/hr Insulin Aspart (Novolog Insulin Sliding Scale) 0 units SUBQ ACHS [facility]; Protocol Stop: 09/23/18 11:29 Last Admin: 07/31/18 21:37 Dose: Not Given Lactobacillus Rhamnosus (Culturelle 15b) 1 each PO DAILY [facility] Stop: 09/24/18 08:59 Last Admin: 07/31/18 09:27 Dose: Not Given Lisinopril (Zestril) 10 mg PO DAILY [facility] Stop: 09/23/18 08:59 Last Admin: 07/31/18 09:27 Dose: Not Given Miscellaneous (Probiotic Screen) 1 ea MC PRN PRN PRN Reason: PROTOCOL Stop: 09/27/18 11:41 Ondansetron HCl (Zofran) 4 mg IV Q6H PRN PRN Reason: Nausea / Vomiting Stop: 09/23/18 09:01 Pregabalin (Lyrica) 150 mg PO BID [facility] Stop: 09/23/18 09:14 Last Admin: 07/31/18 16:34 Dose: Not Given Vitamin D (Vitamin D3) 4,000 iu PO DAILY [facility] Stop: 09/23/18 09:14 Last Admin: 07/31/18 09:27 Dose: Not Given General: no acute distress, well developed, well nourished HEENT: atraumatic, normocephalic, PERRLA, EOMI Neck: supple, no thyromegaly Cardiovascular: S1S2, regular, systolic murmur Lungs: clear to auscultation bilaterally, clear to percussion Abdomen: soft, other (colostomy), no tender, no hepatomegaly Extremities: other (b/l bka), no cyanosis, no clubbing Neurological: awake, alert, oriented, focal findings Skin: other - Procedures Procedures: Procedures Procedure Code Date EXCISION OF RIGHT HIP MUSCLE, OPEN APPROACH [id number] 07/25/18 INSPECTION OF LOWER INTESTINAL TRACT, ENDO [id number] 05/20/18 REPAIR ABDOMINAL WALL, OPEN APPROACH [id number] 07/25/18 Infectious Disease Assmt/Plan - Problem List Patient Problems: All Active Problems Chronic pain syndrome (Acute) G89.4 Diabetes (Acute) E11.9 Gastrointestinal bleed (Acute) K92.2 HTN (hypertension) (Acute) I10 - Assessment Assessment: 1. Leukocytosis improved. 2. UTI. 3. Diabetes mellitus type 2. 4. Hypertension. 5. Colostomy malfunction. - Plan Plan: Continue levaquin. Nutritional Asmnt/Malnutr-PDOC - Dietary Evaluation Malnutrition Findings (Please click <Entered> for more info): Nutritional Asmnt/Malnutrition Start: 07/28/18 16: 47 Text: Status: Complete Freq: Protocol: Document 07/28/18 16:47 JUNIOR (Rec: 07/28/18 17:05 [email or web address]) Nutritional Asmnt/Malnutrition Patient General Information Nutritional Screening Moderate Risk Consult Diagnosis hyponatremia, bleeding at colostomy Pertinent Medical Hx/Surgical Hx bilateral AKA, HTN, DM, chronic pain syndrom, colostomy Subjective Information Consult received for stage IV pressure ulcer right buttocks. Pt seen lying in bed at time of visit, awake, not willing to talk. Pt reported poor appetite, abdominal pain, not interested in infomation of diabetic diet. Per EMR, PO intake 45-75%. Glucose 232 at admission noted. Per nurse, no more bleeding, stool OB possitive. Current Diet Order/ Nutrition Support CCHO 60gm, 2 gram sodium Pertinent Medications vit C, D5-0.45ns, olace, novolog, culturelle, levaquin, vit D3 Pertinent Labs 07/28 glucose 137, POC 126-224 9/ Na 134, Cr 0.6, Glucose 146, POC 131-159 9/ Cr 0.6, glucose 176, A1c 8 .1, POC 125-140 Nutritional Hx/Data Height 1.52 m Height (Calculated Centimeters) 152.4 Current Weight (lbs) 75.296 kg Weight (Calculated Kilograms) 75.3 Weight (Calculated Grams) 21804.3 [place] Body Weight 106 Body Mass Index (BMI) 32.4 Weight Status Overweight GI Symptoms GI Symptoms None Last BM none Difficult in: None Skin Integrity/Comment: Wound care note: stage IV pressure ulcer, erythema to buttocks/sacral Current %PO Fair (50-74%) Estimated Nutritional Goals BEE in Kcals: Adj wt of IBW Calories/Kcals/Kg 25-30 Kcals Calculated 8830-2681 Protein: Adj wt of IBW Protein g/k.2 Protein Calculated 66 Fluid: ml 1375-1650ml (1ml/kcal) Nutritional Problem 2. Problem Problem inadequate food intake Etiology poor appetite, abd pain Signs/Symptoms: PO intake 45-75% 1. Problem Problem altered nutrition related labs Etiology hx of DM Signs/Symptoms: glucose 137-176, A1c 8.1, Malnutrition Alert Is there a minimum of two criteria No selected? Query Text:Check all the applicable criteria. A minimum of two criteria are recommended for diagnosis of either severe or non-severe malnutrition. Malnutrition Related to Morbid Obesity Malnutrition related to morbid obesity No Intervention/Recommendation Comments 1. Continue with [facility] 60gm and 2g Na diet as ordered. 2. Consider adding [place] BID to help with wound healing. 3. Monitor PO intake, wt, GI function and labs and skin integrity 4. F/U as moderate risk in 3-5 days, 07/31-08/02, PO check 07/30 Expected Outcomes/Goals Expected Outcomes/Goals 1. PO intake to meet at least 75% of nutritional needs. 2. Wt stability, skin to remain intact, labs to approach WNL. 1. Continue with current diet as ordered. 2. Monitor PO intake, wt, labs and skin integrity 3. F/U as
[2018-08-01] MEDS: D5-0.45NS 1,000 ML IV SCH ×2 (00:12→21:22)
[2018-08-01] MEDS: HYDROmorphone 2 mg/mL 1mL Vial IVP PRN ×4 (01:35→13:14)
[2018-08-01] MEDS: INSULIN ASPART SLIDING SCALE 100 UNITS/ML UNIT SUBQ SCH ×4 (07:42→21:20)
--- NOTE | 2018-08-01 08:03 | GI Progress Note ---
Subjective - Review of Systems Subjective: S/P SURGERY IN ICU NO EVENTS Objective - Results Result Diagrams: 07/31/18 05:25 07/31/18 05:25 Recent Labs: Laboratory Last Values WBC 11.4 Th/cmm (4.8-10.8) H 07/31/18 05:25 RBC 5.53 Mil/cmm (4.30-5.70) 07/31/18 05:25 Hgb 15.8 gm/dL (12-16) 07/31/18 05:25 Hct 48.3 % (41.0-60) 07/31/18 05:25 MCV 87.4 fl (80-99) 07/31/18 05:25 MCH 28.6 pg (26.0-30.0) 07/31/18 05:25 MCHC Differential 32.8 pg (28.0-36.0) 07/31/18 05:25 RDW 14.4 % (11.5-20.0) 07/31/18 05:25 Plt Count 279 Th/cmm (150-400) 07/31/18 05:25 MPV 7.5 fl 07/31/18 05:25 Neutrophils % 69.9 % (40.0-80.0) 07/31/18 05:25 Lymphocytes % 14.6 % (20.0-50.0) L 07/31/18 05:25 Monocytes % 8.0 % (2.0-10.0) 07/31/18 05:25 Eosinophils % 4.1 % (0.0-5.0) 07/31/18 05:25 Basophils % 3.4 % (0.0-2.0) H 07/31/18 05:25 PT 9.6 SECONDS (9.5-11.5) 07/24/18 23:55 INR 0.92 (0.5-1.4) 07/24/18 23:55 PTT (Actin FS) 29.6 SECONDS (26.0-38.0) 07/24/18 23:55 Sodium 137 mEq/L (136-145) 07/31/18 05:25 Potassium 3.9 mEq/L (3.5-5.1) 07/31/18 05:25 Chloride 103 mEq/L (98-107) 07/31/18 05:25 Carbon Dioxide 27.5 mEq/L (21.0-31.0) 07/31/18 05:25 Anion Gap 10.4 (7.0-16.0) 07/31/18 05:25 BUN 10 mg/dL (7-25) 07/31/18 05:25 Creatinine 0.8 mg/dL (0.7-1.3) 07/31/18 05:25 Est GFR ( Amer) > 60.0 ml/min (>90) 07/31/18 05:25 Est GFR (Non-Af Amer) > 60.0 ml/min 07/31/18 05:25 BUN/Creatinine Ratio 12.5 07/31/18 05:25 Glucose 135 mg/dL (70-105) H 07/31/18 05:25 POC Glucose 128 MG/DL (70 - 105) H 08/01/18 07:37 Hemoglobin A1c % 8.1 % (4.0-6.0) H 07/25/18 06:05 Whole Bld Lactic Acid 1.00 mmol/L (0.60-1.99) 07/25/18 00:00 Calcium 8.8 mg/dL (8.6-10.3) 07/31/18 05:25 Total Bilirubin 0.4 mg/dL (0.3-1.0) 07/31/18 05:25 AST 17 U/L (13-39) 07/31/18 05:25 ALT 19 U/L (7-52) 07/31/18 05:25 Alkaline Phosphatase 73 U/L (34-104) 07/31/18 05:25 Total Protein 6.2 gm/dL (6.0-8.3) 07/31/18 05:25 Albumin 3.2 gm/dL (4.2-5.5) L 07/31/18 05:25 Globulin 3.0 gm/dL 07/31/18 05:25 Albumin/Globulin Ratio 1.1 (1.0-1.8) 07/31/18 05:25 Amylase 16 U/L (29-103) L 07/24/18 23:55 Lipase 10 U/L (11-82) L 07/24/18 23:55 Urine Source CLEAN C 07/25/18 15:44 Urine Color YELLOW 07/25/18 15:44 Urine Clarity CLOUDY (CLEAR) 07/25/18 15:44 Urine pH 6.0 (4.6 - 8.0) 07/25/18 15:44 Ur Specific [place] 1.020 (1.005-1.030) 07/25/18 15:44 Urine Protein 30 mg/dL (NEGATIVE) H 07/25/18 15:44 Urine Glucose (UA) NEGATIVE mg/dL (NEGATIVE) 07/25/18 15:44 Urine Ketones NEGATIVE mg/dL (NEGATIVE) 07/25/18 15:44 Urine Blood TRACE (NEGATIVE) 07/25/18 15:44 Urine Nitrate NEGATIVE (NEGATIVE) 07/25/18 15:44 Urine Bilirubin NEGATIVE (NEGATIVE) 07/25/18 15:44 Urine Urobilinogen 0.2 E.U./dL (0.2 - 1.0) 07/25/18 15:44 Ur Leukocyte Esterase LARGE (NEGATIVE) H 07/25/18 15:44 Urine RBC 2-5 /hpf (0-5) H 07/25/18 15:44 Urine WBC 50-100 /hpf (0-5) H 07/25/18 15:44 Ur Epithelial Cells OCCASIONAL /lpf (FEW) 07/25/18 15:44 Urine Bacteria MODERATE /hpf (NONE SEEN) H 07/25/18 15:44 Stool Occult Blood POSITIVE (NEGATIVE) H 07/27/18 06:15 Blood Type O NEGATIVE 07/25/18 03:05 Antibody Screen NEGATIVE 07/25/18 03:05 - Physical Exam Vitals and I&O: Vital Signs Temp 98.9 F 08/01/18 06:00 Pulse 91 08/01/18 06:00 Resp 15 08/01/18 06:00 BP 127/73 08/01/18 06:00 Pulse Ox 96 08/01/18 06:00 Intake & Output 07/31/18 08/01/18 08/01/18 18:59 06:59 18:59 Intake Total 300 1150.833 Output Total 900 Balance -600 1150.833 Weight (lbs) 78.018 kg 78.018 kg Intake: Intake, IV Amount 790.833 D5-0.45NS 1,000 ml @ 50 690.833 mls/hr IV .Q20H [facility] Rx#: [id number] Levofloxacin 500mg/100mL 100 500 mg In 100 ml @ 100 mls/hr IV Q24HR [facility] Rx#: [id number] Oral 300 360 Output: Urine 900 Other: # Voids 0 # Bowel Movements 0 Stool Characteristics Soft Formed Weight Source Bedscale Bedscale Active Medications: Current Medications Acetaminophen (Tylenol) 650 mg PO Q4HR PRN PRN Reason: FEVER TEMP >101, AND MILD PAIN Stop: 09/23/18 09:01 Acetaminophen (Tylenol Extra Strength) 1,000 mg PO Q4HR PRN PRN Reason: Pain (Moderate) Stop: 09/23/18 09:01 Al Hydrox/Mg Hydrox/Simethicone (Maalox) 30 ml PO Q4H PRN PRN Reason: Abdominal Pain Stop: 09/23/18 09:01 Last Admin: 07/29/18 18:00 Dose: 30 ml Amitriptyline HCl (Elavil) 50 mg PO HS [facility] Stop: 09/23/18 20:59 Last Admin: 07/31/18 21:43 Dose: 50 mg Ascorbic Acid (Vitamin C) 500 mg PO DAILY [facility] Stop: 09/24/18 08:59 Last Admin: 07/31/18 09:26 Dose: Not Given Aspirin (Aspirin Chewable) 81 mg PO DAILY [facility] Stop: 09/23/18 08:59 Last Admin: 07/31/18 09:26 Dose: Not Given Baclofen (Lioresal) 10 mg PO Q8HR [facility] Stop: 09/23/18 12:59 Last Admin: 08/01/18 05:39 Dose: 10 mg Docusate Sodium (Colace) 100 mg PO DAILY [facility] Stop: 09/23/18 08:59 Last Admin: 07/31/18 09:27 Dose: Not Given Duloxetine HCl (Cymbalta) 30 mg PO DAILY [facility] Stop: 09/23/18 09:14 Last Admin: 07/31/18 09:27 Dose: Not Given Hydromorphone HCl (Dilaudid) 1 mg IVP Q4HR PRN PRN Reason: Pain (Moderate) Stop: 09/23/18 02:55 Last Admin: 07/31/18 19:29 Dose: 1 mg Hydromorphone HCl (Dilaudid) 2 mg IVP Q4HR PRN PRN Reason: Pain (Severe) Stop: 09/23/18 02:55 Last Admin: 08/01/18 05:39 Dose: 2 mg Levofloxacin (Levaquin Pb) 500 mg in 100 mls @ 100 mls/hr IV Q24HR [facility] Stop: 09/23/18 20:59 Last Infusion: 07/31/18 22:40 Dose: Infused Dextrose/Sodium Chloride (D5-0.45ns) 1,000 mls @ 50 mls/hr IV .Q20H [facility] Stop: 09/29/18 14:13 Last Infusion: 08/01/18 06:22 Dose: 50 mls/hr Insulin Aspart (Novolog Insulin Sliding Scale) 0 units SUBQ ACHS [facility]; Protocol Stop: 09/23/18 11:29 Last Admin: 08/01/18 07:42 Dose: Not Given Lactobacillus Rhamnosus (Culturelle 15b) 1 each PO DAILY [facility] Stop: 09/24/18 08:59 Last Admin: 07/31/18 09:27 Dose: Not Given Lisinopril (Zestril) 10 mg PO DAILY [facility] Stop: 09/23/18 08:59 Last Admin: 07/31/18 09:27 Dose: Not Given Miscellaneous (Probiotic Screen) 1 ea MC PRN PRN PRN Reason: PROTOCOL Stop: 09/27/18 11:41 Ondansetron HCl (Zofran) 4 mg IV Q6H PRN PRN Reason: Nausea / Vomiting Stop: 09/23/18 09:01 Pregabalin (Lyrica) 150 mg PO BID [facility] Stop: 09/23/18 09:14 Last Admin: 07/31/18 16:34 Dose: Not Given Vitamin D (Vitamin D3) 4,000 iu PO DAILY [facility] Stop: 09/23/18 09:14 Last Admin: 07/31/18 09:27 Dose: Not Given General: Alert, No acute distress HEENT: Atraumatic Neck: no Thyromegaly Cardiovascular: Regular rate, Normal S1, Normal S2 Lungs: Clear to auscultation, Normal air movement Abdomen: Bowel sounds, Soft, Other (colostomy bag with brown stool) - Procedures Procedures: Procedures Procedure Code Date EXCISION OF RIGHT HIP MUSCLE, OPEN APPROACH [id number] 07/25/18 INSPECTION OF LOWER INTESTINAL TRACT, ENDO [id number] 05/20/18 REPAIR ABDOMINAL WALL, OPEN APPROACH [id number] 07/25/18 Assessment/Plan - Problem List Patient Problems: All Active Problems Chronic pain syndrome (Acute) G89.4 Diabetes (Acute) E11.9 Gastrointestinal bleed (Acute) K92.2 HTN (hypertension) (Acute) I10 - Assessment Assessment: 57 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
[2018-08-01] MEDS: Aspirin 81mg Chewable Tab PO SCH (08:48)
[2018-08-01] MEDS: Multivitamin w/ Minerals Tab PO SCH (08:49)
[2018-08-01] MEDS: Lactobacillus Rhamnosus GG 15 Billion CFU CAP.SPRINK PO SCH (08:49)
[2018-08-01] MEDS: Vitamin D3 2,000 IU SGL PO SCH (08:51)
[2018-08-01] MEDS: HYDROmorphone 1 mg/mL 1mL Syr IVP PRN ×2 (08:52→21:27)
[2018-08-01] MEDS ORDERED: HYDROmorphone 2 mg/mL 1mL Vial IVP PRN (09:58)
--- NOTE | 2018-08-01 09:58 | General Progress Note ---
Subjective - Review of Systems Service Date: 08/01/18 Events since last encounter: tolerating liquids Dilaudid dose increased Objective - Results Result Diagrams: 07/31/18 05:25 07/31/18 05:25 Recent Labs: Laboratory Last Values WBC 11.4 Th/cmm (4.8-10.8) H 07/31/18 05:25 RBC 5.53 Mil/cmm (4.30-5.70) 07/31/18 05:25 Hgb 15.8 gm/dL (12-16) 07/31/18 05:25 Hct 48.3 % (41.0-60) 07/31/18 05:25 MCV 87.4 fl (80-99) 07/31/18 05:25 MCH 28.6 pg (26.0-30.0) 07/31/18 05:25 MCHC Differential 32.8 pg (28.0-36.0) 07/31/18 05:25 RDW 14.4 % (11.5-20.0) 07/31/18 05:25 Plt Count 279 Th/cmm (150-400) 07/31/18 05:25 MPV 7.5 fl 07/31/18 05:25 Neutrophils % 69.9 % (40.0-80.0) 07/31/18 05:25 Lymphocytes % 14.6 % (20.0-50.0) L 07/31/18 05:25 Monocytes % 8.0 % (2.0-10.0) 07/31/18 05:25 Eosinophils % 4.1 % (0.0-5.0) 07/31/18 05:25 Basophils % 3.4 % (0.0-2.0) H 07/31/18 05:25 PT 9.6 SECONDS (9.5-11.5) 07/24/18 23:55 INR 0.92 (0.5-1.4) 07/24/18 23:55 PTT (Actin FS) 29.6 SECONDS (26.0-38.0) 07/24/18 23:55 Sodium 137 mEq/L (136-145) 07/31/18 05:25 Potassium 3.9 mEq/L (3.5-5.1) 07/31/18 05:25 Chloride 103 mEq/L (98-107) 07/31/18 05:25 Carbon Dioxide 27.5 mEq/L (21.0-31.0) 07/31/18 05:25 Anion Gap 10.4 (7.0-16.0) 07/31/18 05:25 BUN 10 mg/dL (7-25) 07/31/18 05:25 Creatinine 0.8 mg/dL (0.7-1.3) 07/31/18 05:25 Est GFR ( Amer) > 60.0 ml/min (>90) 07/31/18 05:25 Est GFR (Non-Af Amer) > 60.0 ml/min 07/31/18 05:25 BUN/Creatinine Ratio 12.5 07/31/18 05:25 Glucose 135 mg/dL (70-105) H 07/31/18 05:25 POC Glucose 128 MG/DL (70 - 105) H 08/01/18 07:37 Hemoglobin A1c % 8.1 % (4.0-6.0) H 07/25/18 06:05 Whole Bld Lactic Acid 1.00 mmol/L (0.60-1.99) 07/25/18 00:00 Calcium 8.8 mg/dL (8.6-10.3) 07/31/18 05:25 Total Bilirubin 0.4 mg/dL (0.3-1.0) 07/31/18 05:25 AST 17 U/L (13-39) 07/31/18 05:25 ALT 19 U/L (7-52) 07/31/18 05:25 Alkaline Phosphatase 73 U/L (34-104) 07/31/18 05:25 Total Protein 6.2 gm/dL (6.0-8.3) 07/31/18 05:25 Albumin 3.2 gm/dL (4.2-5.5) L 07/31/18 05:25 Globulin 3.0 gm/dL 07/31/18 05:25 Albumin/Globulin Ratio 1.1 (1.0-1.8) 07/31/18 05:25 Amylase 16 U/L (29-103) L 07/24/18 23:55 Lipase 10 U/L (11-82) L 07/24/18 23:55 Urine Source CLEAN C 07/25/18 15:44 Urine Color YELLOW 07/25/18 15:44 Urine Clarity CLOUDY (CLEAR) 07/25/18 15:44 Urine pH 6.0 (4.6 - 8.0) 07/25/18 15:44 Ur Specific [place] 1.020 (1.005-1.030) 07/25/18 15:44 Urine Protein 30 mg/dL (NEGATIVE) H 07/25/18 15:44 Urine Glucose (UA) NEGATIVE mg/dL (NEGATIVE) 07/25/18 15:44 Urine Ketones NEGATIVE mg/dL (NEGATIVE) 07/25/18 15:44 Urine Blood TRACE (NEGATIVE) 07/25/18 15:44 Urine Nitrate NEGATIVE (NEGATIVE) 07/25/18 15:44 Urine Bilirubin NEGATIVE (NEGATIVE) 07/25/18 15:44 Urine Urobilinogen 0.2 E.U./dL (0.2 - 1.0) 07/25/18 15:44 Ur Leukocyte Esterase LARGE (NEGATIVE) H 07/25/18 15:44 Urine RBC 2-5 /hpf (0-5) H 07/25/18 15:44 Urine WBC 50-100 /hpf (0-5) H 07/25/18 15:44 Ur Epithelial Cells OCCASIONAL /lpf (FEW) 07/25/18 15:44 Urine Bacteria MODERATE /hpf (NONE SEEN) H 07/25/18 15:44 Stool Occult Blood POSITIVE (NEGATIVE) H 07/27/18 06:15 Blood Type O NEGATIVE 07/25/18 03:05 Antibody Screen NEGATIVE 07/25/18 03:05 - Physical Exam Vitals and I&O: Vital Signs Temp 98.9 F 08/01/18 06:00 Pulse 91 08/01/18 08:49 Resp 15 08/01/18 06:00 BP 143/78 08/01/18 08:49 Pulse Ox 96 08/01/18 06:00 Intake & Output 07/31/18 08/01/18 08/01/18 18:59 06:59 18:59 Intake Total 300 1150.833 Output Total 900 Balance -600 1150.833 Weight (lbs) 78.018 kg 78.018 kg Intake: Intake, IV Amount 790.833 D5-0.45NS 1,000 ml @ 50 690.833 mls/hr IV .Q20H [facility] Rx#: [id number] Levofloxacin 500mg/100mL 100 500 mg In 100 ml @ 100 mls/hr IV Q24HR [facility] Rx#: [id number] Oral 300 360 Output: Urine 900 Other: # Voids 0 # Bowel Movements 0 Stool Characteristics Soft Formed Weight Source Bedscale Bedscale Active Medications: Current Medications Acetaminophen (Tylenol) 650 mg PO Q4HR PRN PRN Reason: FEVER TEMP >101, AND MILD PAIN Stop: 09/23/18 09:01 Acetaminophen (Tylenol Extra Strength) 1,000 mg PO Q4HR PRN PRN Reason: Pain (Moderate) Stop: 09/23/18 09:01 Al Hydrox/Mg Hydrox/Simethicone (Maalox) 30 ml PO Q4H PRN PRN Reason: Abdominal Pain Stop: 09/23/18 09:01 Last Admin: 07/29/18 18:00 Dose: 30 ml Amitriptyline HCl (Elavil) 50 mg PO HS [facility] Stop: 09/23/18 20:59 Last Admin: 07/31/18 21:43 Dose: 50 mg Ascorbic Acid (Vitamin C) 500 mg PO DAILY [facility] Stop: 09/24/18 08:59 Last Admin: 08/01/18 08:48 Dose: 500 mg Aspirin (Aspirin Chewable) 81 mg PO DAILY [facility] Stop: 09/23/18 08:59 Last Admin: 08/01/18 08:48 Dose: 81 mg Baclofen (Lioresal) 10 mg PO Q8HR [facility] Stop: 09/23/18 12:59 Last Admin: 08/01/18 05:39 Dose: 10 mg Docusate Sodium (Colace) 100 mg PO DAILY [facility] Stop: 09/23/18 08:59 Last Admin: 08/01/18 08:49 Dose: Not Given Duloxetine HCl (Cymbalta) 30 mg PO DAILY [facility] Stop: 09/23/18 09:14 Last Admin: 08/01/18 08:51 Dose: 30 mg Hydromorphone HCl (Dilaudid) 1 mg IVP Q4HR PRN PRN Reason: Pain (Moderate) Stop: 09/23/18 02:55 Last Admin: 08/01/18 08:52 Dose: 1 mg Hydromorphone HCl (Dilaudid) 2 mg IVP Q4HR PRN PRN Reason: Pain (Severe) Stop: 09/23/18 02:55 Last Admin: 08/01/18 05:39 Dose: 2 mg Levofloxacin (Levaquin Pb) 500 mg in 100 mls @ 100 mls/hr IV Q24HR [facility] Stop: 09/23/18 20:59 Last Infusion: 07/31/18 22:40 Dose: Infused Dextrose/Sodium Chloride (D5-0.45ns) 1,000 mls @ 50 mls/hr IV .Q20H [facility] Stop: 09/29/18 14:13 Last Infusion: 08/01/18 06:22 Dose: 50 mls/hr Insulin Aspart (Novolog Insulin Sliding Scale) 0 units SUBQ ACHS [facility]; Protocol Stop: 09/23/18 11:29 Last Admin: 08/01/18 07:42 Dose: Not Given Lactobacillus Rhamnosus (Culturelle 15b) 1 each PO DAILY [facility] Stop: 09/24/18 08:59 Last Admin: 08/01/18 08:49 Dose: 1 each Lisinopril (Zestril) 10 mg PO DAILY [facility] Stop: 09/23/18 08:59 Last Admin: 08/01/18 08:49 Dose: 10 mg Miscellaneous (Probiotic Screen) 1 ea MC PRN PRN PRN Reason: PROTOCOL Stop: 09/27/18 11:41 Ondansetron HCl (Zofran) 4 mg IV Q6H PRN PRN Reason: Nausea / Vomiting Stop: 09/23/18 09:01 Pregabalin (Lyrica) 150 mg PO BID [facility] Stop: 09/23/18 09:14 Last Admin: 08/01/18 08:48 Dose: 150 mg Vitamin D (Vitamin D3) 4,000 iu PO DAILY [facility] Stop: 09/23/18 09:14 Last Admin: 08/01/18 08:51 Dose: 4,000 iu General: Alert, No acute distress HEENT: Atraumatic Neck: no Thyromegaly Cardiovascular: Regular rate, Normal S1, Normal S2 Lungs: Clear to auscultation, Normal air movement Abdomen: Bowel sounds, Soft, Other (colostomy bag with brown stool) - Procedures Procedures: Procedures Procedure Code Date EXCISION OF RIGHT HIP MUSCLE, OPEN APPROACH [id number] 07/25/18 INSPECTION OF LOWER INTESTINAL TRACT, ENDO [id number] 06/27/18 REPAIR ABDOMINAL WALL, OPEN APPROACH [id number] 07/25/18 Assessment/Plan - Problem List Patient Problems: All Active Problems Chronic pain syndrome (Acute) G89.4 Diabetes (Acute) E11.9 Gastrointestinal bleed (Acute) K92.2 HTN (hypertension) (Acute) I10 Nutritional Asmnt/Malnutr-PDOC - Dietary Evaluation Malnutrition Findings (Please click <Entered> for more info): Nutritional Asmnt/Malnutrition Start: 07/28/18 16: 47 Text: Status: Complete Freq: Protocol: Document 07/28/18 16:47 HENG (Rec: 07/28/18 17:05 HEN [email or web address]) Nutritional Asmnt/Malnutrition Patient General Information Nutritional Screening Moderate Risk Consult Diagnosis hyponatremia, bleeding at colostomy Pertinent Medical Hx/Surgical Hx bilateral AKA, HTN, DM, chronic pain syndrom, colostomy Subjective Information Consult received for stage IV pressure ulcer right buttocks. Pt seen lying in bed at time of visit, awake, not willing to talk. Pt reported poor appetite, abdominal pain, not interested in infomation of diabetic diet. Per EMR, PO intake 45-75%. Glucose 232 at admission noted. Per nurse, no more bleeding, stool OB possitive. Current Diet Order/ Nutrition Support CCHO 60gm, 2 gram sodium Pertinent Medications vit C, D5-0.45ns, olace, novolog, culturelle, levaquin, vit D3 Pertinent Labs 07/28 glucose 137, POC 126-224 9/ Na 134, Cr 0.6, Glucose 146, POC 131-159 9/ Cr 0.6, glucose 176, A1c 8 .1, POC 125-140 Nutritional Hx/Data Height 1.52 m Height (Calculated Centimeters) 152.4 Current Weight (lbs) 75.296 kg Weight (Calculated Kilograms) 75.3 Weight (Calculated Grams) 92900.3 [place] Body Weight 106 Body Mass Index (BMI) 32.4 Weight Status Overweight GI Symptoms GI Symptoms None Last BM none Difficult in: None Skin Integrity/Comment: Wound care note: stage IV pressure ulcer, erythema to buttocks/sacral Current %PO Fair (50-74%) Estimated Nutritional Goals BEE in Kcals: Adj wt of IBW Calories/Kcals/Kg 25-30 Kcals Calculated 7244-7235 Protein: Adj wt of IBW Protein g/k.2 Protein Calculated 66 Fluid: ml 1375-1650ml (1ml/kcal) Nutritional Problem 2. Problem Problem inadequate food intake Etiology poor appetite, abd pain Signs/Symptoms: PO intake 45-75% 1. Problem Problem altered nutrition related labs Etiology hx of DM Signs/Symptoms: glucose 137-176, A1c 8.1, Malnutrition Alert Is there a minimum of two criteria No selected? Query Text:Check all the applicable criteria. A minimum of two criteria are recommended for diagnosis of either severe or non-severe malnutrition. Malnutrition Related to Morbid Obesity Malnutrition related to morbid obesity No Intervention/Recommendation Comments 1. [facility] and 2g Na diet as ordered. 2. Consider adding Carlos BID to help with wound healing. 3. Monitor PO intake, wt, GI function and labs and skin integrity 4. F/U as moderate risk in 3-5 days, 07/31-08/02, PO check 07/30 Expected Outcomes/Goals Expected Outcomes/Goals 1. PO intake to meet at least 75% of nutritional needs. 2. Wt stability, skin to remain intact, labs to approach WNL. 1. Continue with current diet as ordered. 2. Monitor PO intake, wt, labs and skin integrity 3. F/U as
--- NOTE | 2018-08-01 20:12 | Progress Notes ---
DATE: 08/01/2018 SUBJECTIVE: The patient was seen in ICU, but currently on the Med/Surg status now. The patient underwent parastomal hernia repair and right hip decubitus ulcer debridement done yesterday. The patient has episodic pain on which the medicine Dilaudid was changed today. Otherwise, the patient appears to be in no acute distress. OBJECTIVE: VITAL SIGNS: Temperature 98.9, heart rate 91, blood pressure 143/78, respiration 15, 96% on room air. HEENT: Head is atraumatic and normocephalic. Eyes: Bilateral conjunctivae are clear. Bilateral pupils equal, round and reactive. NECK: Supple. No JVD. CARDIOVASCULAR: S1 and S2, without murmur, sinus rhythm on the monitor. PULMONARY: Clear to auscultation. GASTROINTESTINAL: Soft and nontender without guarding. Positive bowel sounds. GENITOURINARY: The patient has a colostomy in left lower quadrant. MUSCULOSKELETAL: No clubbing. No cyanosis. EXTREMITIES: Bilateral above-knee amputation. ASSESSMENT: 1. Gastrointestinal bleeding. 2. Chronic pain syndrome. 3. Diabetes. 4. Hypertension. 5. Stage IV right hip decubitus ulcer. 6. Bilateral above-knee amputation. 7. Incarcerated parastomal hernia on the lower abdomen. PLAN: We will monitor for any signs of bleeding. We will continue current treatment. We will do pain management as needed. Treatment plans were discussed with the patient's nurse. Treatment plans were discussed with Dr. Kraft. JOB# [id number]
[2018-08-01] MEDS: Levofloxacin 500mg/100mL 500 MG/100 ML BAG IV SCH (21:36)
--- NOTE | 2018-08-01 23:35 | Infectious Disease Prog Note ---
Infectious Disease Subjective - Review of Systems Service Date: 08/01/18 Subjective: There is no new change, no fever. Infectious Disease Objective - Results Result Diagrams: 07/31/18 05:25 07/31/18 05:25 Recent Labs: Laboratory Last Values WBC 11.4 Th/cmm (4.8-10.8) H 07/31/18 05:25 RBC 5.53 Mil/cmm (4.30-5.70) 07/31/18 05:25 Hgb 15.8 gm/dL (12-16) 07/31/18 05:25 Hct 48.3 % (41.0-60) 07/31/18 05:25 MCV 87.4 fl (80-99) 07/31/18 05:25 MCH 28.6 pg (26.0-30.0) 07/31/18 05:25 MCHC Differential 32.8 pg (28.0-36.0) 07/31/18 05:25 RDW 14.4 % (11.5-20.0) 07/31/18 05:25 Plt Count 279 Th/cmm (150-400) 07/31/18 05:25 MPV 7.5 fl 07/31/18 05:25 Neutrophils % 69.9 % (40.0-80.0) 07/31/18 05:25 Lymphocytes % 14.6 % (20.0-50.0) L 07/31/18 05:25 Monocytes % 8.0 % (2.0-10.0) 07/31/18 05:25 Eosinophils % 4.1 % (0.0-5.0) 07/31/18 05:25 Basophils % 3.4 % (0.0-2.0) H 07/31/18 05:25 PT 9.6 SECONDS (9.5-11.5) 07/24/18 23:55 INR 0.92 (0.5-1.4) 07/24/18 23:55 PTT (Actin FS) 29.6 SECONDS (26.0-38.0) 07/24/18 23:55 Sodium 137 mEq/L (136-145) 07/31/18 05:25 Potassium 3.9 mEq/L (3.5-5.1) 07/31/18 05:25 Chloride 103 mEq/L (98-107) 07/31/18 05:25 Carbon Dioxide 27.5 mEq/L (21.0-31.0) 07/31/18 05:25 Anion Gap 10.4 (7.0-16.0) 07/31/18 05:25 BUN 10 mg/dL (7-25) 07/31/18 05:25 Creatinine 0.8 mg/dL (0.7-1.3) 07/31/18 05:25 Est GFR ( Amer) > 60.0 ml/min (>90) 07/31/18 05:25 Est GFR (Non-Af Amer) > 60.0 ml/min 07/31/18 05:25 BUN/Creatinine Ratio 12.5 07/31/18 05:25 Glucose 135 mg/dL (70-105) H 07/31/18 05:25 POC Glucose 102 MG/DL (70 - 105) 08/01/18 21:17 Hemoglobin A1c % 8.1 % (4.0-6.0) H 07/25/18 06:05 Whole Bld Lactic Acid 1.00 mmol/L (0.60-1.99) 07/25/18 00:00 Calcium 8.8 mg/dL (8.6-10.3) 07/31/18 05:25 Total Bilirubin 0.4 mg/dL (0.3-1.0) 07/31/18 05:25 AST 17 U/L (13-39) 07/31/18 05:25 ALT 19 U/L (7-52) 07/31/18 05:25 Alkaline Phosphatase 73 U/L (34-104) 07/31/18 05:25 Total Protein 6.2 gm/dL (6.0-8.3) 07/31/18 05:25 Albumin 3.2 gm/dL (4.2-5.5) L 07/31/18 05:25 Globulin 3.0 gm/dL 07/31/18 05:25 Albumin/Globulin Ratio 1.1 (1.0-1.8) 07/31/18 05:25 Amylase 16 U/L (29-103) L 07/24/18 23:55 Lipase 10 U/L (11-82) L 07/24/18 23:55 Urine Source CLEAN C 07/25/18 15:44 Urine Color YELLOW 07/25/18 15:44 Urine Clarity CLOUDY (CLEAR) 07/25/18 15:44 Urine pH 6.0 (4.6 - 8.0) 07/25/18 15:44 Ur Specific [place] 1.020 (1.005-1.030) 07/25/18 15:44 Urine Protein 30 mg/dL (NEGATIVE) H 07/25/18 15:44 Urine Glucose (UA) NEGATIVE mg/dL (NEGATIVE) 07/25/18 15:44 Urine Ketones NEGATIVE mg/dL (NEGATIVE) 07/25/18 15:44 Urine Blood TRACE (NEGATIVE) 07/25/18 15:44 Urine Nitrate NEGATIVE (NEGATIVE) 07/25/18 15:44 Urine Bilirubin NEGATIVE (NEGATIVE) 07/25/18 15:44 Urine Urobilinogen 0.2 E.U./dL (0.2 - 1.0) 07/25/18 15:44 Ur Leukocyte Esterase LARGE (NEGATIVE) H 07/25/18 15:44 Urine RBC 2-5 /hpf (0-5) H 07/25/18 15:44 Urine WBC 50-100 /hpf (0-5) H 07/25/18 15:44 Ur Epithelial Cells OCCASIONAL /lpf (FEW) 07/25/18 15:44 Urine Bacteria MODERATE /hpf (NONE SEEN) H 07/25/18 15:44 Stool Occult Blood POSITIVE (NEGATIVE) H 07/27/18 06:15 Blood Type O NEGATIVE 07/25/18 03:05 Antibody Screen NEGATIVE 07/25/18 03:05 - Physical Exam Vitals and I&O: Vital Signs Temp 99.6 F 08/01/18 20:00 Pulse 83 08/01/18 20:00 Resp 20 08/01/18 20:00 BP 123/72 08/01/18 20:00 Pulse Ox 94 08/01/18 20:00 Intake & Output 08/01/18 08/01/18 08/02/18 06:59 18:59 06:59 Intake Total 1150.833 750 691.667 Output Total 990 Balance 1150.833 -240 691.667 Weight (lbs) 78.018 kg 78.018 kg Intake: Intake, IV Amount 790.833 691.667 D5-0.45NS 1,000 ml @ 50 690.833 691.667 mls/hr IV .Q20H [facility] Rx#: [id number] Levofloxacin 500mg/100mL 100 500 mg In 100 ml @ 100 mls/hr IV Q24HR [facility] Rx#: [id number] Oral 360 750 Output: Drainage 25 Right Hip 25 Urine 950 Other 15 Other: # Voids 0 # Bowel Movements 0 0 Weight Source Bedscale Bedscale Active Medications: Current Medications Acetaminophen (Tylenol) 650 mg PO Q4HR PRN PRN Reason: FEVER TEMP >101, AND MILD PAIN Stop: 09/23/18 09:01 Acetaminophen (Tylenol Extra Strength) 1,000 mg PO Q4HR PRN PRN Reason: Pain (Moderate) Stop: 09/23/18 09:01 Al Hydrox/Mg Hydrox/Simethicone (Maalox) 30 ml PO Q4H PRN PRN Reason: Abdominal Pain Stop: 09/23/18 09:01 Last Admin: 07/29/18 18:00 Dose: 30 ml Amitriptyline HCl (Elavil) 50 mg PO HS [facility] Stop: 09/23/18 20:59 Last Admin: 08/01/18 20:59 Dose: 50 mg Ascorbic Acid (Vitamin C) 500 mg PO DAILY [facility] Stop: 09/24/18 08:59 Last Admin: 08/01/18 08:48 Dose: 500 mg Aspirin (Aspirin Chewable) 81 mg PO DAILY [facility] Stop: 09/23/18 08:59 Last Admin: 08/01/18 08:48 Dose: 81 mg Baclofen (Lioresal) 10 mg PO Q8HR [facility] Stop: 09/23/18 12:59 Last Admin: 08/01/18 21:00 Dose: 10 mg Docusate Sodium (Colace) 100 mg PO DAILY [facility] Stop: 09/23/18 08:59 Last Admin: 08/01/18 08:49 Dose: Not Given Duloxetine HCl (Cymbalta) 30 mg PO DAILY [facility] Stop: 09/23/18 09:14 Last Admin: 08/01/18 08:51 Dose: 30 mg Hydromorphone HCl (Dilaudid) 1 mg IVP Q4HR PRN PRN Reason: Pain (Moderate) Stop: 09/23/18 02:55 Last Admin: 08/01/18 21:27 Dose: 1 mg Hydromorphone HCl (Dilaudid) 2 mg IVP Q3H PRN PRN Reason: Abdominal Pain Stop: 09/30/18 10:08 Last Admin: 08/01/18 13:14 Dose: 2 mg Levofloxacin (Levaquin Pb) 500 mg in 100 mls @ 100 mls/hr IV Q24HR [facility] Stop: 09/23/18 20:59 Last Admin: 08/01/18 21:36 Dose: 100 mls/hr Dextrose/Sodium Chloride (D5-0.45ns) 1,000 mls @ 50 mls/hr IV .Q20H [facility] Stop: 09/29/18 14:13 Last Admin: 08/01/18 21:22 Dose: 50 mls/hr Insulin Aspart (Novolog Insulin Sliding Scale) 0 units SUBQ ACHS [facility]; Protocol Stop: 09/23/18 11:29 Last Admin: 08/01/18 21:20 Dose: Not Given Ketorolac Tromethamine (Toradol) 30 mg IV Q6HR PRN PRN Reason: Pain (Mild) Stop: 09/30/18 09:57 Lactobacillus Rhamnosus (Culturelle 15b) 1 each PO DAILY [facility] Stop: 09/24/18 08:59 Last Admin: 08/01/18 08:49 Dose: 1 each Lisinopril (Zestril) 10 mg PO DAILY [facility] Stop: 09/23/18 08:59 Last Admin: 08/01/18 08:49 Dose: 10 mg Miscellaneous (Probiotic Screen) 1 ea MC PRN PRN PRN Reason: PROTOCOL Stop: 09/27/18 11:41 Ondansetron HCl (Zofran) 4 mg IV Q6H PRN PRN Reason: Nausea / Vomiting Stop: 09/23/18 09:01 Pregabalin (Lyrica) 150 mg PO BID [facility] Stop: 09/23/18 09:14 Last Admin: 08/01/18 17:18 Dose: 150 mg Vitamin D (Vitamin D3) 4,000 iu PO DAILY [facility] Stop: 09/23/18 09:14 Last Admin: 08/01/18 08:51 Dose: 4,000 iu General: no acute distress, well developed, well nourished HEENT: atraumatic, normocephalic, PERRLA, EOMI Neck: supple, no thyromegaly Cardiovascular: S1S2, regular Lungs: clear to auscultation bilaterally, clear to percussion Abdomen: soft, bowel sounds, no tender, no distended, no hepatomegaly, no splenomegaly Extremities: other (b/l bka), no cyanosis, no clubbing Neurological: awake, alert, oriented - Procedures Procedures: Procedures Procedure Code Date EXCISION OF RIGHT HIP MUSCLE, OPEN APPROACH [id number] 07/25/18 INSPECTION OF LOWER INTESTINAL TRACT, ENDO [id number] 05/20/18 REPAIR ABDOMINAL WALL, OPEN APPROACH [id number] 07/25/18 Infectious Disease Assmt/Plan - Problem List Patient Problems: All Active Problems Chronic pain syndrome (Acute) G89.4 Diabetes (Acute) E11.9 Gastrointestinal bleed (Acute) K92.2 HTN (hypertension) (Acute) I10 - Assessment Assessment: 1. Leukocytosis improved. 2. UTI. 3. Diabetes mellitus type 2. 4. Hypertension. 5. Colostomy malfunction. - Plan Plan: MELISSA levaquin. Nutritional Asmnt/Malnutr-PDOC - Dietary Evaluation Malnutrition Findings (Please click <Entered> for more info): Nutritional Asmnt/Malnutrition Start: 07/28/18 16: 47 Text: Status: Complete Freq: Protocol: Document 07/28/18 16:47 JUNIOR (Rec: 07/28/18 17:05 JUNIOR [email or web address]) Nutritional Asmnt/Malnutrition Patient General Information Nutritional Screening Moderate Risk Consult Diagnosis hyponatremia, bleeding at colostomy Pertinent Medical Hx/Surgical Hx bilateral AKA, HTN, DM, chronic pain syndrom, colostomy Subjective Information Consult received for stage IV pressure ulcer right buttocks. Pt seen lying in bed at time of visit, awake, not willing to talk. Pt reported poor appetite, abdominal pain, not interested in infomation of diabetic diet. Per EMR, PO intake 45-75%. Glucose 232 at admission noted. Per nurse, no more bleeding, stool OB possitive. Current Diet Order/ Nutrition Support CCHO 60gm, 2 gram sodium Pertinent Medications vit C, D5-0.45ns, olace, novolog, culturelle, levaquin, vit D3 Pertinent Labs 07/28 glucose 137, POC 126-224 9 Na 134, Cr 0.6, Glucose 146, POC 131-159 9 Cr 0.6, glucose 176, A1c 8 .1, POC 125-140 Nutritional Hx/Data Height 1.52 m Height (Calculated Centimeters) 152.4 Current Weight (lbs) 75.296 kg Weight (Calculated Kilograms) 75.3 Weight (Calculated Grams) 36372.3 [place] Body Weight 106 Body Mass Index (BMI) 32.4 Weight Status Overweight GI Symptoms GI Symptoms None Last BM none Difficult in: None Skin Integrity/Comment: Wound care note: stage IV pressure ulcer, erythema to buttocks/sacral Current %PO Fair (50-74%) Estimated Nutritional Goals BEE in Kcals: Adj wt of IBW Calories/Kcals/Kg 25-30 Kcals Calculated 2270-2534 Protein: Adj wt of IBW Protein g/k.2 Protein Calculated 66 Fluid: ml 1375-1650ml (1ml/kcal) Nutritional Problem 2. Problem Problem inadequate food intake Etiology poor appetite, abd pain Signs/Symptoms: PO intake 45-75% 1. Problem Problem altered nutrition related labs Etiology hx of DM Signs/Symptoms: glucose 137-176, A1c 8.1, Malnutrition Alert Is there a minimum of two criteria No selected? Query Text:Check all the applicable criteria. A minimum of two criteria are recommended for diagnosis of either severe or non-severe malnutrition. Malnutrition Related to Morbid Obesity Malnutrition related to morbid obesity No Intervention/Recommendation Comments 1. [facility] 60[facility] and 2g Na diet as ordered. 2. Consider adding Carlos BID to help with wound healing. 3. Monitor PO intake, wt, GI function and labs and skin integrity 4. F/U as moderate risk in 3-5 days, 07/31-08/02, PO check 07/30 Expected Outcomes/Goals Expected Outcomes/Goals 1. PO intake to meet at least 75% of nutritional needs. 2. Wt stability, skin to remain intact, labs to approach WNL. 1. Continue with current diet as ordered. 2. Monitor PO intake, wt, labs and skin integrity 3. F/U as
[2018-08-02] MEDS: HYDROmorphone 2 mg/mL 1mL Vial IVP PRN ×5 (00:18→19:43)
[2018-08-02] MEDS: HYDROmorphone 1 mg/mL 1mL Syr IVP PRN ×2 (05:32→23:39)
[2018-08-02] MEDS: INSULIN ASPART SLIDING SCALE 100 UNITS/ML UNIT SUBQ SCH ×4 (06:52→21:16)
[2018-08-02] MEDS: Lactobacillus Rhamnosus GG 15 Billion CFU CAP.SPRINK PO SCH (08:18)
[2018-08-02] MEDS: Vitamin D3 2,000 IU SGL PO SCH (08:18)
[2018-08-02] MEDS: Aspirin 81mg Chewable Tab PO SCH (08:19)
[2018-08-02] MEDS: Multivitamin w/ Minerals Tab PO SCH (08:19)
--- NOTE | 2018-08-02 09:56 | General Progress Note ---
Subjective - Review of Systems Service Date: 08/02/18 Events since last encounter: refusing to eat increase IV fluids to 100 cc Objective - Results Result Diagrams: 07/31/18 05:25 07/31/18 05:25 Recent Labs: Laboratory Last Values WBC 11.4 Th/cmm (4.8-10.8) H 07/31/18 05:25 RBC 5.53 Mil/cmm (4.30-5.70) 07/31/18 05:25 Hgb 15.8 gm/dL (12-16) 07/31/18 05:25 Hct 48.3 % (41.0-60) 07/31/18 05:25 MCV 87.4 fl (80-99) 07/31/18 05:25 MCH 28.6 pg (26.0-30.0) 07/31/18 05:25 MCHC Differential 32.8 pg (28.0-36.0) 07/31/18 05:25 RDW 14.4 % (11.5-20.0) 07/31/18 05:25 Plt Count 279 Th/cmm (150-400) 07/31/18 05:25 MPV 7.5 fl 07/31/18 05:25 Neutrophils % 69.9 % (40.0-80.0) 07/31/18 05:25 Lymphocytes % 14.6 % (20.0-50.0) L 07/31/18 05:25 Monocytes % 8.0 % (2.0-10.0) 07/31/18 05:25 Eosinophils % 4.1 % (0.0-5.0) 07/31/18 05:25 Basophils % 3.4 % (0.0-2.0) H 07/31/18 05:25 PT 9.6 SECONDS (9.5-11.5) 07/24/18 23:55 INR 0.92 (0.5-1.4) 07/24/18 23:55 PTT (Actin FS) 29.6 SECONDS (26.0-38.0) 07/24/18 23:55 Sodium 137 mEq/L (136-145) 07/31/18 05:25 Potassium 3.9 mEq/L (3.5-5.1) 07/31/18 05:25 Chloride 103 mEq/L (98-107) 07/31/18 05:25 Carbon Dioxide 27.5 mEq/L (21.0-31.0) 07/31/18 05:25 Anion Gap 10.4 (7.0-16.0) 07/31/18 05:25 BUN 10 mg/dL (7-25) 07/31/18 05:25 Creatinine 0.8 mg/dL (0.7-1.3) 07/31/18 05:25 Est GFR ( Amer) > 60.0 ml/min (>90) 07/31/18 05:25 Est GFR (Non-Af Amer) > 60.0 ml/min 07/31/18 05:25 BUN/Creatinine Ratio 12.5 07/31/18 05:25 Glucose 135 mg/dL (70-105) H 07/31/18 05:25 POC Glucose 130 MG/DL (70 - 105) H 08/02/18 06:51 Hemoglobin A1c % 8.1 % (4.0-6.0) H 07/25/18 06:05 Whole Bld Lactic Acid 1.00 mmol/L (0.60-1.99) 07/25/18 00:00 Calcium 8.8 mg/dL (8.6-10.3) 07/31/18 05:25 Total Bilirubin 0.4 mg/dL (0.3-1.0) 07/31/18 05:25 AST 17 U/L (13-39) 07/31/18 05:25 ALT 19 U/L (7-52) 07/31/18 05:25 Alkaline Phosphatase 73 U/L (34-104) 07/31/18 05:25 Total Protein 6.2 gm/dL (6.0-8.3) 07/31/18 05:25 Albumin 3.2 gm/dL (4.2-5.5) L 07/31/18 05:25 Globulin 3.0 gm/dL 07/31/18 05:25 Albumin/Globulin Ratio 1.1 (1.0-1.8) 07/31/18 05:25 Amylase 16 U/L (29-103) L 07/24/18 23:55 Lipase 10 U/L (11-82) L 07/24/18 23:55 Urine Source CLEAN C 09/01/18 15:44 Urine Color YELLOW 07/25/18 15:44 Urine Clarity CLOUDY (CLEAR) 07/25/18 15:44 Urine pH 6.0 (4.6 - 8.0) 07/25/18 15:44 Ur Specific [place] 1.020 (1.005-1.030) 07/25/18 15:44 Urine Protein 30 mg/dL (NEGATIVE) H 07/25/18 15:44 Urine Glucose (UA) NEGATIVE mg/dL (NEGATIVE) 07/25/18 15:44 Urine Ketones NEGATIVE mg/dL (NEGATIVE) 07/25/18 15:44 Urine Blood TRACE (NEGATIVE) 07/25/18 15:44 Urine Nitrate NEGATIVE (NEGATIVE) 07/25/18 15:44 Urine Bilirubin NEGATIVE (NEGATIVE) 07/25/18 15:44 Urine Urobilinogen 0.2 E.U./dL (0.2 - 1.0) 07/25/18 15:44 Ur Leukocyte Esterase LARGE (NEGATIVE) H 07/25/18 15:44 Urine RBC 2-5 /hpf (0-5) H 07/25/18 15:44 Urine WBC 50-100 /hpf (0-5) H 07/25/18 15:44 Ur Epithelial Cells OCCASIONAL /lpf (FEW) 07/25/18 15:44 Urine Bacteria MODERATE /hpf (NONE SEEN) H 07/25/18 15:44 Stool Occult Blood POSITIVE (NEGATIVE) H 07/27/18 06:15 Blood Type O NEGATIVE 07/25/18 03:05 Antibody Screen NEGATIVE 07/25/18 03:05 - Physical Exam Vitals and I&O: Vital Signs Temp 98.2 F 08/02/18 07:54 Pulse 81 08/02/18 08:18 Resp 19 08/02/18 07:54 BP 140/78 08/02/18 08:18 Pulse Ox 93 08/02/18 07:54 Intake & Output 08/01/18 08/02/18 08/02/18 18:59 06:59 18:59 Intake Total 750 1151.667 Output Total 990 600 Balance -240 551.667 Weight (lbs) 78.018 kg 78.5 kg Intake: Intake, IV Amount 791.667 D5-0.45NS 1,000 ml @ 50 691.667 mls/hr IV .Q20H [facility] Rx#: [id number] Levofloxacin 500mg/100mL 100 500 mg In 100 ml @ 100 mls/hr IV Q24HR [facility] Rx#: [id number] Oral 750 360 Output: Drainage 25 Right Hip 25 Urine 950 600 Other 15 Other: # Bowel Movements 0 Weight Source Bedscale Bedscale Active Medications: Current Medications Acetaminophen (Tylenol) 650 mg PO Q4HR PRN PRN Reason: FEVER TEMP >101, AND MILD PAIN Stop: 09/23/18 09:01 Acetaminophen (Tylenol Extra Strength) 1,000 mg PO Q4HR PRN PRN Reason: Pain (Moderate) Stop: 09/23/18 09:01 Al Hydrox/Mg Hydrox/Simethicone (Maalox) 30 ml PO Q4H PRN PRN Reason: Abdominal Pain Stop: 09/23/18 09:01 Last Admin: 07/29/18 18:00 Dose: 30 ml Amitriptyline HCl (Elavil) 50 mg PO HS [facility] Stop: 09/23/18 20:59 Last Admin: 08/01/18 20:59 Dose: 50 mg Ascorbic Acid (Vitamin C) 500 mg PO DAILY [facility] Stop: 09/24/18 08:59 Last Admin: 08/02/18 08:18 Dose: 500 mg Aspirin (Aspirin Chewable) 81 mg PO DAILY [facility] Stop: 09/23/18 08:59 Last Admin: 08/02/18 08:19 Dose: 81 mg Baclofen (Lioresal) 10 mg PO Q8HR [facility] Stop: 09/23/18 12:59 Last Admin: 08/02/18 05:07 Dose: 10 mg Docusate Sodium (Colace) 100 mg PO DAILY [facility] Stop: 09/23/18 08:59 Last Admin: 08/02/18 08:20 Dose: Not Given Duloxetine HCl (Cymbalta) 30 mg PO DAILY [facility] Stop: 09/23/18 09:14 Last Admin: 08/02/18 08:18 Dose: 30 mg Hydromorphone HCl (Dilaudid) 1 mg IVP Q4HR PRN PRN Reason: Pain (Moderate) Stop: 09/23/18 02:55 Last Admin: 08/02/18 05:32 Dose: 1 mg Hydromorphone HCl (Dilaudid) 2 mg IVP Q3H PRN PRN Reason: Abdominal Pain Stop: 09/30/18 10:08 Last Admin: 08/02/18 08:25 Dose: 2 mg Dextrose/Sodium Chloride (D5-0.45ns) 1,000 mls @ 50 mls/hr IV .Q20H [facility] Stop: 09/29/18 14:13 Last Admin: 08/01/18 21:22 Dose: 50 mls/hr Insulin Aspart (Novolog Insulin Sliding Scale) 0 units SUBQ ACHS [facility]; Protocol Stop: 09/23/18 11:29 Last Admin: 08/02/18 06:52 Dose: Not Given Ketorolac Tromethamine (Toradol) 30 mg IV Q6HR PRN PRN Reason: Pain (Mild) Stop: 09/30/18 09:57 Lactobacillus Rhamnosus (Culturelle 15b) 1 each PO DAILY [facility] Stop: 09/24/18 08:59 Last Admin: 08/02/18 08:18 Dose: 1 each Lisinopril (Zestril) 10 mg PO DAILY [facility] Stop: 09/23/18 08:59 Last Admin: 08/02/18 08:18 Dose: 10 mg Miscellaneous (Probiotic Screen) 1 ea MC PRN PRN PRN Reason: PROTOCOL Stop: 09/27/18 11:41 Ondansetron HCl (Zofran) 4 mg IV Q6H PRN PRN Reason: Nausea / Vomiting Stop: 09/23/18 09:01 Pregabalin (Lyrica) 150 mg PO BID [facility] Stop: 09/23/18 09:14 Last Admin: 08/02/18 08:18 Dose: 150 mg Vitamin D (Vitamin D3) 4,000 iu PO DAILY [facility] Stop: 09/23/18 09:14 Last Admin: 08/02/18 08:18 Dose: 4,000 iu General: Alert, No acute distress HEENT: Atraumatic Neck: no Thyromegaly Cardiovascular: Regular rate, Normal S1, Normal S2 Lungs: Clear to auscultation, Normal air movement Abdomen: Bowel sounds, Soft, Other (colostomy bag with brown stool) - Procedures Procedures: Procedures Procedure Code Date EXCISION OF RIGHT HIP MUSCLE, OPEN APPROACH [id number] 07/25/18 INSPECTION OF LOWER INTESTINAL TRACT, ENDO [id number] 05/20/18 REPAIR ABDOMINAL WALL, OPEN APPROACH [id number] 07/25/18 Assessment/Plan - Problem List Patient Problems: All Active Problems Chronic pain syndrome (Acute) G89.4 Diabetes (Acute) E11.9 Gastrointestinal bleed (Acute) K92.2 HTN (hypertension) (Acute) I10 Nutritional Asmnt/Malnutr-PDOC - Dietary Evaluation Malnutrition Findings (Please click <Entered> for more info): Nutritional Asmnt/Malnutrition Start: 07/28/18 16: 47 Text: Status: Complete Freq: Protocol: Document 07/28/18 16:47 [facility] (Rec[facility] 07/28/18 17[facility]05 [email or web address] Nutritional Asmnt/Malnutrition Patient General Information Nutritional Screening Moderate Risk Consult Diagnosis hyponatremia, bleeding at colostomy Pertinent Medical Hx/Surgical Hx bilateral AKA, HTN, DM, chronic pain syndrom, colostomy Subjective Information Consult received for stage IV pressure ulcer right buttocks. Pt seen lying in bed at time of visit, awake, not willing to talk. Pt reported poor appetite, abdominal pain, not interested in infomation of diabetic diet. Per EMR, PO intake 45-75%. Glucose 232 at admission noted. Per nurse, no more bleeding, stool OB possitive. Current Diet Order/ Nutrition Support CCHO 60gm, 2 gram sodium Pertinent Medications vit C, D5-0.45ns, olace, novolog, culturelle, levaquin, vit D3 Pertinent Labs 07/28 glucose 137, POC 126-224 9/2 Na 134, Cr 0.6, Glucose 146, POC 131-159 9/1 Cr 0.6, glucose 176, A1c 8 .1, POC 125-140 Nutritional Hx/Data Height 1.52 m Height (Calculated Centimeters) 152.4 Current Weight (lbs) 75.296 kg Weight (Calculated Kilograms) 75.3 Weight (Calculated Grams) 31424.3 [place] Body Weight 106 Body Mass Index (BMI) 32.4 Weight Status Overweight GI Symptoms GI Symptoms None Last BM none Difficult in: None Skin Integrity/Comment: Wound care note: stage IV pressure ulcer, erythema to buttocks/sacral Current %PO Fair (50-74%) Estimated Nutritional Goals BEE in Kcals: Adj wt of IBW Calories/Kcals/Kg 25-30 Kcals Calculated 2269-1960 Protein: Adj wt of IBW Protein g/k.2 Protein Calculated 66 Fluid: ml 1375-1650ml (1ml/kcal) Nutritional Problem 2. Problem Problem inadequate food intake Etiology poor appetite, abd pain Signs/Symptoms: PO intake 45-75% 1. Problem Problem altered nutrition related labs Etiology hx of DM Signs/Symptoms: glucose 137-176, A1c 8.1, Malnutrition Alert Is there a minimum of two criteria No selected? Query Text:Check all the applicable criteria. A minimum of two criteria are recommended for diagnosis of either severe or non-severe malnutrition. Malnutrition Related to Morbid Obesity Malnutrition related to morbid obesity No Intervention/Recommendation Comments 1. Continue with CCHO 60gm and 2g Na diet as ordered. 2. Consider adding Carlos BID to help with wound healing. 3. Monitor PO intake, wt, GI function and labs and skin integrity 4. F/U as moderate risk in 3-5 days, 07/31-08/02, PO check 07/30 Expected Outcomes/Goals Expected Outcomes/Goals 1. PO intake to meet at least 75% of nutritional needs. 2. Wt stability, skin to remain intact, labs to approach WNL. 1. Continue with current diet as ordered. 2. Monitor PO intake, wt, labs and skin integrity 3. F/U as
--- NOTE | 2018-08-02 11:23 | General Progress Note ---
Subjective - Review of Systems Events since last encounter: patient with poor appetite not eating well Objective - Results Result Diagrams: 07/31/18 05:25 07/31/18 05:25 Recent Labs: Laboratory Last Values WBC 11.4 Th/cmm (4.8-10.8) H 07/31/18 05:25 RBC 5.53 Mil/cmm (4.30-5.70) 07/31/18 05:25 Hgb 15.8 gm/dL (12-16) 07/31/18 05:25 Hct 48.3 % (41.0-60) 07/31/18 05:25 MCV 87.4 fl (80-99) 07/31/18 05:25 MCH 28.6 pg (26.0-30.0) 07/31/18 05:25 MCHC Differential 32.8 pg (28.0-36.0) 07/31/18 05:25 RDW 14.4 % (11.5-20.0) 07/31/18 05:25 Plt Count 279 Th/cmm (150-400) 07/31/18 05:25 MPV 7.5 fl 07/31/18 05:25 Neutrophils % 69.9 % (40.0-80.0) 07/31/18 05:25 Lymphocytes % 14.6 % (20.0-50.0) L 07/31/18 05:25 Monocytes % 8.0 % (2.0-10.0) 07/31/18 05:25 Eosinophils % 4.1 % (0.0-5.0) 07/31/18 05:25 Basophils % 3.4 % (0.0-2.0) H 07/31/18 05:25 PT 9.6 SECONDS (9.5-11.5) 07/24/18 23:55 INR 0.92 (0.5-1.4) 07/24/18 23:55 PTT (Actin FS) 29.6 SECONDS (26.0-38.0) 07/24/18 23:55 Sodium 137 mEq/L (136-145) 07/31/18 05:25 Potassium 3.9 mEq/L (3.5-5.1) 07/31/18 05:25 Chloride 103 mEq/L (98-107) 07/31/18 05:25 Carbon Dioxide 27.5 mEq/L (21.0-31.0) 07/31/18 05:25 Anion Gap 10.4 (7.0-16.0) 07/31/18 05:25 BUN 10 mg/dL (7-25) 07/31/18 05:25 Creatinine 0.8 mg/dL (0.7-1.3) 07/31/18 05:25 Est GFR ( Amer) > 60.0 ml/min (>90) 07/31/18 05:25 Est GFR (Non-Af Amer) > 60.0 ml/min 07/31/18 05:25 BUN/Creatinine Ratio 12.5 07/31/18 05:25 Glucose 135 mg/dL (70-105) H 07/31/18 05:25 POC Glucose 130 MG/DL (70 - 105) H 08/02/18 06:51 Hemoglobin A1c % 8.1 % (4.0-6.0) H 07/25/18 06:05 Whole Bld Lactic Acid 1.00 mmol/L (0.60-1.99) 07/25/18 00:00 Calcium 8.8 mg/dL (8.6-10.3) 07/31/18 05:25 Total Bilirubin 0.4 mg/dL (0.3-1.0) 07/31/18 05:25 AST 17 U/L (13-39) 07/31/18 05:25 ALT 19 U/L (7-52) 07/31/18 05:25 Alkaline Phosphatase 73 U/L (34-104) 07/31/18 05:25 Total Protein 6.2 gm/dL (6.0-8.3) 07/31/18 05:25 Albumin 3.2 gm/dL (4.2-5.5) L 07/31/18 05:25 Globulin 3.0 gm/dL 07/31/18 05:25 Albumin/Globulin Ratio 1.1 (1.0-1.8) 07/31/18 05:25 Amylase 16 U/L (29-103) L 07/24/18 23:55 Lipase 10 U/L (11-82) L 07/24/18 23:55 Urine Source CLEAN C 07/25/18 15:44 Urine Color YELLOW 09/01/18 15:44 Urine Clarity CLOUDY (CLEAR) 07/25/18 15:44 Urine pH 6.0 (4.6 - 8.0) 07/25/18 15:44 Ur Specific [place] 1.020 (1.005-1.030) 07/25/18 15:44 Urine Protein 30 mg/dL (NEGATIVE) H 07/25/18 15:44 Urine Glucose (UA) NEGATIVE mg/dL (NEGATIVE) 07/25/18 15:44 Urine Ketones NEGATIVE mg/dL (NEGATIVE) 07/25/18 15:44 Urine Blood TRACE (NEGATIVE) 07/25/18 15:44 Urine Nitrate NEGATIVE (NEGATIVE) 07/25/18 15:44 Urine Bilirubin NEGATIVE (NEGATIVE) 07/25/18 15:44 Urine Urobilinogen 0.2 E.U./dL (0.2 - 1.0) 07/25/18 15:44 Ur Leukocyte Esterase LARGE (NEGATIVE) H 07/25/18 15:44 Urine RBC 2-5 /hpf (0-5) H 07/25/18 15:44 Urine WBC 50-100 /hpf (0-5) H 07/25/18 15:44 Ur Epithelial Cells OCCASIONAL /lpf (FEW) 07/25/18 15:44 Urine Bacteria MODERATE /hpf (NONE SEEN) H 07/25/18 15:44 Stool Occult Blood POSITIVE (NEGATIVE) H 07/27/18 06:15 Blood Type O NEGATIVE 07/25/18 03:05 Antibody Screen NEGATIVE 07/25/18 03:05 - Physical Exam Vitals and I&O: Vital Signs Temp 98.2 F 08/02/18 07:54 Pulse 81 08/02/18 08:18 Resp 19 08/02/18 07:54 BP 140/78 08/02/18 08:18 Pulse Ox 93 08/02/18 07:54 Intake & Output 08/01/18 08/02/18 08/02/18 18:59 06:59 18:59 Intake Total 750 1151.667 Output Total 990 600 Balance -240 551.667 Weight (lbs) 78.018 kg 78.5 kg Intake: Intake, IV Amount 791.667 D5-0.45NS 1,000 ml @ 50 691.667 mls/hr IV .Q20H [facility] Rx#: [id number] Levofloxacin 500mg/100mL 100 500 mg In 100 ml @ 100 mls/hr IV Q24HR [facility] Rx#: [id number] Oral 750 360 Output: Drainage 25 Right Hip 25 Urine 950 600 Other 15 Other: # Bowel Movements 0 Weight Source Bedscale Bedscale Active Medications: Current Medications Acetaminophen (Tylenol) 650 mg PO Q4HR PRN PRN Reason: FEVER TEMP >101, AND MILD PAIN Stop: 09/23/18 09:01 Acetaminophen (Tylenol Extra Strength) 1,000 mg PO Q4HR PRN PRN Reason: Pain (Moderate) Stop: 09/23/18 09:01 Al Hydrox/Mg Hydrox/Simethicone (Maalox) 30 ml PO Q4H PRN PRN Reason: Abdominal Pain Stop: 09/23/18 09:01 Last Admin: 07/29/18 18:00 Dose: 30 ml Amitriptyline HCl (Elavil) 50 mg PO HS [facility] Stop: 09/23/18 20:59 Last Admin: 08/01/18 20:59 Dose: 50 mg Ascorbic Acid (Vitamin C) 500 mg PO DAILY [facility] Stop: 09/24/18 08:59 Last Admin: 08/02/18 08:18 Dose: 500 mg Aspirin (Aspirin Chewable) 81 mg PO DAILY [facility] Stop: 09/23/18 08:59 Last Admin: 08/02/18 08:19 Dose: 81 mg Baclofen (Lioresal) 10 mg PO Q8HR [facility] Stop: 09/23/18 12:59 Last Admin: 08/02/18 05:07 Dose: 10 mg Docusate Sodium (Colace) 100 mg PO DAILY [facility] Stop: 09/23/18 08:59 Last Admin: 08/02/18 08:20 Dose: Not Given Duloxetine HCl (Cymbalta) 30 mg PO DAILY [facility] Stop: 09/23/18 09:14 Last Admin: 08/02/18 08:18 Dose: 30 mg Hydromorphone HCl (Dilaudid) 1 mg IVP Q4HR PRN PRN Reason: Pain (Moderate) Stop: 09/23/18 02:55 Last Admin: 08/02/18 05:32 Dose: 1 mg Hydromorphone HCl (Dilaudid) 2 mg IVP Q3H PRN PRN Reason: Abdominal Pain Stop: 09/30/18 10:08 Last Admin: 08/02/18 08:25 Dose: 2 mg Dextrose/Sodium Chloride (D5-0.45ns) 1,000 mls @ 50 mls/hr IV .Q20H [facility] Stop: 09/29/18 14:13 Last Admin: 08/01/18 21:22 Dose: 50 mls/hr Insulin Aspart (Novolog Insulin Sliding Scale) 0 units SUBQ ACHS [facility]; Protocol Stop: 09/23/18 11:29 Last Admin: 08/02/18 06:52 Dose: Not Given Ketorolac Tromethamine (Toradol) 30 mg IV Q6HR PRN PRN Reason: Pain (Mild) Stop: 09/30/18 09:57 Lactobacillus Rhamnosus (Culturelle 15b) 1 each PO DAILY [facility] Stop: 09/24/18 08:59 Last Admin: 08/02/18 08:18 Dose: 1 each Lisinopril (Zestril) 10 mg PO DAILY [facility] Stop: 09/23/18 08:59 Last Admin: 08/02/18 08:18 Dose: 10 mg Miscellaneous (Probiotic Screen) 1 ea MC PRN PRN PRN Reason: PROTOCOL Stop: 09/27/18 11:41 Ondansetron HCl (Zofran) 4 mg IV Q6H PRN PRN Reason: Nausea / Vomiting Stop: 09/23/18 09:01 Pregabalin (Lyrica) 150 mg PO BID [facility] Stop: 09/23/18 09:14 Last Admin: 08/02/18 08:18 Dose: 150 mg Vitamin D (Vitamin D3) 4,000 iu PO DAILY [facility] Stop: 09/23/18 09:14 Last Admin: 08/02/18 08:18 Dose: 4,000 iu General: Alert, No acute distress HEENT: Atraumatic Neck: no Thyromegaly Cardiovascular: Regular rate, Normal S1, Normal S2 Lungs: Clear to auscultation, Normal air movement Abdomen: Bowel sounds, Soft, Other (colostomy bag with brown stool) - Procedures Procedures: Procedures Procedure Code Date EXCISION OF RIGHT HIP MUSCLE, OPEN APPROACH [id number] 07/25/18 INSPECTION OF LOWER INTESTINAL TRACT, ENDO [id number] 05/20/18 REPAIR ABDOMINAL WALL, OPEN APPROACH [id number] 07/25/18 Assessment/Plan - Problem List Patient Problems: All Active Problems Chronic pain syndrome (Acute) G89.4 Diabetes (Acute) E11.9 Gastrointestinal bleed (Acute) K92.2 HTN (hypertension) (Acute) I10 - Plan Plan: as per order sheet Nutritional Asmnt/Malnutr-PDOC - Dietary Evaluation Malnutrition Findings (Please click <Entered> for more info): Nutritional Asmnt/Malnutrition Start: 07/28/18 16: 47 Text: Status: Complete Freq: Protocol: Document 07/28/18 16:47 [facility]Rec[facility] 07[facility]28/18 17[id number] Nutritional Asmnt/Malnutrition Patient General Information Nutritional Screening Moderate Risk Consult Diagnosis hyponatremia, bleeding at colostomy Pertinent Medical Hx/Surgical Hx bilateral AKA, HTN, DM, chronic pain syndrom, colostomy Subjective Information Consult received for stage IV pressure ulcer right buttocks. Pt seen lying in bed at time of visit, awake, not willing to talk. Pt reported poor appetite, abdominal pain, not interested in infomation of diabetic diet. Per EMR, PO intake 45-75%. Glucose 232 at admission noted. Per nurse, no more bleeding, stool OB possitive. Current Diet Order/ Nutrition Support CCHO 60gm, 2 gram sodium Pertinent Medications vit C, D5-0.45ns, olace, novolog, culturelle, levaquin, vit D3 Pertinent Labs 07/28 glucose 137, POC 126-224 9/2 Na 134, Cr 0.6, Glucose 146, POC 131-159 9/1 Cr 0.6, glucose 176, A1c 8 .1, POC 125-140 Nutritional Hx/Data Height 1.52 m Height (Calculated Centimeters) 152.4 Current Weight (lbs) 75.296 kg Weight (Calculated Kilograms) 75.3 Weight (Calculated Grams) 06996.3 [place] Body Weight 106 Body Mass Index (BMI) 32.4 Weight Status Overweight GI Symptoms GI Symptoms None Last BM none Difficult in: None Skin Integrity/Comment: Wound care note: stage IV pressure ulcer, erythema to buttocks/sacral Current %PO Fair (50-74%) Estimated Nutritional Goals BEE in Kcals: Adj wt of IBW Calories/Kcals/Kg 25-30 Kcals Calculated 5441-6522 Protein: Adj wt of IBW Protein g/k.2 Protein Calculated 66 Fluid: ml 1375-1650ml (1ml/kcal) Nutritional Problem 2. Problem Problem inadequate food intake Etiology poor appetite, abd pain Signs/Symptoms: PO intake 45-75% 1. Problem Problem altered nutrition related labs Etiology hx of DM Signs/Symptoms: glucose 137-176, A1c 8.1, Malnutrition Alert Is there a minimum of two criteria No selected? Query Text:Check all the applicable criteria. A minimum of two criteria are recommended for diagnosis of either severe or non-severe malnutrition. Malnutrition Related to Morbid Obesity Malnutrition related to morbid obesity No Intervention/Recommendation Comments 1. Continue with CCHO 60gm and 2g Na diet as ordered. 2. Consider adding Carlos BID to help with wound healing. 3. Monitor PO intake, wt, GI function and labs and skin integrity 4. F/U as moderate risk in 3-5 days, 07/31-08/02, PO check 07/30 Expected Outcomes/Goals Expected Outcomes/Goals 1. PO intake to meet at least 75% of nutritional needs. 2. Wt stability, skin to remain intact, labs to approach WNL. 1. Continue with current diet as ordered. 2. Monitor PO intake, wt, labs and skin integrity 3. F/U as
[2018-08-02] MEDS: D5-0.45NS 1,000 ML IV SCH (17:48)
[2018-08-02] MEDS ORDERED: D5-0.45NS 1,000 ML IV SCH (19:23)
--- NOTE | 2018-08-02 19:43 | Infectious Disease Prog Note ---
Infectious Disease Subjective - Review of Systems Service Date: 08/02/18 Subjective: There is no new change, no fever. Infectious Disease Objective - Results Result Diagrams: 07/31/18 05:25 07/31/18 05:25 Recent Labs: Laboratory Last Values WBC 11.4 Th/cmm (4.8-10.8) H 07/31/18 05:25 RBC 5.53 Mil/cmm (4.30-5.70) 07/31/18 05:25 Hgb 15.8 gm/dL (12-16) 07/31/18 05:25 Hct 48.3 % (41.0-60) 07/31/18 05:25 MCV 87.4 fl (80-99) 07/31/18 05:25 MCH 28.6 pg (26.0-30.0) 07/31/18 05:25 MCHC Differential 32.8 pg (28.0-36.0) 07/31/18 05:25 RDW 14.4 % (11.5-20.0) 07/31/18 05:25 Plt Count 279 Th/cmm (150-400) 07/31/18 05:25 MPV 7.5 fl 07/31/18 05:25 Neutrophils % 69.9 % (40.0-80.0) 07/31/18 05:25 Lymphocytes % 14.6 % (20.0-50.0) L 07/31/18 05:25 Monocytes % 8.0 % (2.0-10.0) 07/31/18 05:25 Eosinophils % 4.1 % (0.0-5.0) 07/31/18 05:25 Basophils % 3.4 % (0.0-2.0) H 07/31/18 05:25 PT 9.6 SECONDS (9.5-11.5) 07/24/18 23:55 INR 0.92 (0.5-1.4) 07/24/18 23:55 PTT (Actin FS) 29.6 SECONDS (26.0-38.0) 07/24/18 23:55 Sodium 137 mEq/L (136-145) 07/31/18 05:25 Potassium 3.9 mEq/L (3.5-5.1) 07/31/18 05:25 Chloride 103 mEq/L (98-107) 07/31/18 05:25 Carbon Dioxide 27.5 mEq/L (21.0-31.0) 07/31/18 05:25 Anion Gap 10.4 (7.0-16.0) 07/31/18 05:25 BUN 10 mg/dL (7-25) 07/31/18 05:25 Creatinine 0.8 mg/dL (0.7-1.3) 07/31/18 05:25 Est GFR ( Amer) > 60.0 ml/min (>90) 07/31/18 05:25 Est GFR (Non-Af Amer) > 60.0 ml/min 07/31/18 05:25 BUN/Creatinine Ratio 12.5 07/31/18 05:25 Glucose 135 mg/dL (70-105) H 07/31/18 05:25 POC Glucose 132 MG/DL (70 - 105) H 08/02/18 17:10 Hemoglobin A1c % 8.1 % (4.0-6.0) H 07/25/18 06:05 Whole Bld Lactic Acid 1.00 mmol/L (0.60-1.99) 07/25/18 00:00 Calcium 8.8 mg/dL (8.6-10.3) 07/31/18 05:25 Total Bilirubin 0.4 mg/dL (0.3-1.0) 07/31/18 05:25 AST 17 U/L (13-39) 07/31/18 05:25 ALT 19 U/L (7-52) 07/31/18 05:25 Alkaline Phosphatase 73 U/L (34-104) 07/31/18 05:25 Total Protein 6.2 gm/dL (6.0-8.3) 07/31/18 05:25 Albumin 3.2 gm/dL (4.2-5.5) L 07/31/18 05:25 Globulin 3.0 gm/dL 07/31/18 05:25 Albumin/Globulin Ratio 1.1 (1.0-1.8) 07/31/18 05:25 Amylase 16 U/L (29-103) L 07/24/18 23:55 Lipase 10 U/L (11-82) L 07/24/18 23:55 Urine Source CLEAN C 09/01/18 15:44 Urine Color YELLOW 07/25/18 15:44 Urine Clarity CLOUDY (CLEAR) 07/25/18 15:44 Urine pH 6.0 (4.6 - 8.0) 07/25/18 15:44 Ur Specific [place] 1.020 (1.005-1.030) 07/25/18 15:44 Urine Protein 30 mg/dL (NEGATIVE) H 07/25/18 15:44 Urine Glucose (UA) NEGATIVE mg/dL (NEGATIVE) 07/25/18 15:44 Urine Ketones NEGATIVE mg/dL (NEGATIVE) 07/25/18 15:44 Urine Blood TRACE (NEGATIVE) 07/25/18 15:44 Urine Nitrate NEGATIVE (NEGATIVE) 07/25/18 15:44 Urine Bilirubin NEGATIVE (NEGATIVE) 07/25/18 15:44 Urine Urobilinogen 0.2 E.U./dL (0.2 - 1.0) 07/25/18 15:44 Ur Leukocyte Esterase LARGE (NEGATIVE) H 07/25/18 15:44 Urine RBC 2-5 /hpf (0-5) H 07/25/18 15:44 Urine WBC 50-100 /hpf (0-5) H 07/25/18 15:44 Ur Epithelial Cells OCCASIONAL /lpf (FEW) 07/25/18 15:44 Urine Bacteria MODERATE /hpf (NONE SEEN) H 07/25/18 15:44 Stool Occult Blood POSITIVE (NEGATIVE) H 07/27/18 06:15 Blood Type O NEGATIVE 07/25/18 03:05 Antibody Screen NEGATIVE 07/25/18 03:05 - Physical Exam Vitals and I&O: Vital Signs Temp 98.4 F 08/02/18 16:02 Pulse 70 08/02/18 16:02 Resp 18 08/02/18 16:02 BP 138/71 08/02/18 16:02 Pulse Ox 97 08/02/18 16:02 Intake & Output 08/02/18 08/02/18 08/03/18 06:59 18:59 06:59 Intake Total 2845.333 9842 600 Output Total 600 615 100 Balance 551.667 785 500 Weight (lbs) 78.5 kg 78.018 kg 78.018 kg Intake: Intake, IV Amount 651.685 6755 D5-0.45NS 1,000 ml @ 50 336.858 4098 mls/hr IV .Q20H [facility] Rx#: [id number] Levofloxacin 500mg/100mL 100 500 mg In 100 ml @ 100 mls/hr IV Q24HR [facility] Rx#: [id number] Oral 360 400 600 Output: Urine 600 600 100 Other 15 0 Other: # Bowel Movements 0 0 Weight Source Bedscale Bedscale Bedscale Active Medications: Current Medications Acetaminophen (Tylenol) 650 mg PO Q4HR PRN PRN Reason: FEVER TEMP >101, AND MILD PAIN Stop: 09/23/18 09:01 Acetaminophen (Tylenol Extra Strength) 1,000 mg PO Q4HR PRN PRN Reason: Pain (Moderate) Stop: 09/23/18 09:01 Al Hydrox/Mg Hydrox/Simethicone (Maalox) 30 ml PO Q4H PRN PRN Reason: Abdominal Pain Stop: 09/23/18 09:01 Last Admin: 07/29/18 18:00 Dose: 30 ml Amitriptyline HCl (Elavil) 50 mg PO HS [facility] Stop: 09/23/18 20:59 Last Admin: 08/01/18 20:59 Dose: 50 mg Ascorbic Acid (Vitamin C) 500 mg PO DAILY [facility] Stop: 09/24/18 08:59 Last Admin: 08/02/18 08:18 Dose: 500 mg Aspirin (Aspirin Chewable) 81 mg PO DAILY [facility] Stop: 09/23/18 08:59 Last Admin: 08/02/18 08:19 Dose: 81 mg Baclofen (Lioresal) 10 mg PO Q8HR [facility] Stop: 09/23/18 12:59 Last Admin: 08/02/18 12:15 Dose: 10 mg Docusate Sodium (Colace) 100 mg PO DAILY [facility] Stop: 09/23/18 08:59 Last Admin: 08/02/18 08:20 Dose: Not Given Duloxetine HCl (Cymbalta) 30 mg PO DAILY [facility] Stop: 09/23/18 09:14 Last Admin: 08/02/18 08:18 Dose: 30 mg Hydromorphone HCl (Dilaudid) 1 mg IVP Q4HR PRN PRN Reason: Pain (Moderate) Stop: 09/23/18 02:55 Last Admin: 08/02/18 05:32 Dose: 1 mg Hydromorphone HCl (Dilaudid) 2 mg IVP Q3H PRN PRN Reason: Abdominal Pain Stop: 09/30/18 10:08 Last Admin: 08/02/18 16:56 Dose: 2 mg Dextrose/Sodium Chloride (D5-0.45ns) 1,000 mls @ 50 mls/hr IV .Q20H [facility] Stop: 09/29/18 14:13 Last Admin: 08/02/18 17:48 Dose: 50 mls/hr Dextrose/Sodium Chloride (D5-0.45ns) 1,000 mls @ 100 mls/hr IV .Q10H [facility] Stop: 10/01/18 19:22 Insulin Aspart (Novolog Insulin Sliding Scale) 0 units SUBQ ACHS [facility]; Protocol Stop: 09/23/18 11:29 Last Admin: 08/02/18 17:11 Dose: Not Given Ketorolac Tromethamine (Toradol) 30 mg IV Q6HR PRN PRN Reason: Pain (Mild) Stop: 09/30/18 09:57 Lactobacillus Rhamnosus (Culturelle 15b) 1 each PO DAILY [facility] Stop: 09/24/18 08:59 Last Admin: 08/02/18 08:18 Dose: 1 each Lisinopril (Zestril) 10 mg PO DAILY [facility] Stop: 09/23/18 08:59 Last Admin: 08/02/18 08:18 Dose: 10 mg Miscellaneous (Probiotic Screen) 1 ea MC PRN PRN PRN Reason: PROTOCOL Stop: 09/27/18 11:41 Ondansetron HCl (Zofran) 4 mg IV Q6H PRN PRN Reason: Nausea / Vomiting Stop: 09/23/18 09:01 Pregabalin (Lyrica) 150 mg PO BID [facility] Stop: 09/23/18 09:14 Last Admin: 08/02/18 16:59 Dose: 150 mg Vitamin D (Vitamin D3) 4,000 iu PO DAILY [facility] Stop: 09/23/18 09:14 Last Admin: 08/02/18 08:18 Dose: 4,000 iu General: no acute distress, well developed, well nourished HEENT: atraumatic, normocephalic, PERRLA, EOMI, moist mucous membrane Neck: supple, no thyromegaly Cardiovascular: S1S2, regular Lungs: clear to auscultation bilaterally, clear to percussion Abdomen: soft, drain, no tender, no distended Extremities: other (b/l bka), no cyanosis, no clubbing - Procedures Procedures: Procedures Procedure Code Date EXCISION OF RIGHT HIP MUSCLE, OPEN APPROACH [id number] 07/25/18 INSPECTION OF LOWER INTESTINAL TRACT, ENDO [id number] 05/20/18 REPAIR ABDOMINAL WALL, OPEN APPROACH [id number] 07/25/18 Infectious Disease Assmt/Plan - Problem List Patient Problems: All Active Problems Chronic pain syndrome (Acute) G89.4 Diabetes (Acute) E11.9 Gastrointestinal bleed (Acute) K92.2 HTN (hypertension) (Acute) I10 - Assessment Assessment: 1. Leukocytosis improved. 2. UTI. 3. Diabetes mellitus type 2. 4. Hypertension. 5. Colostomy malfunction. - Plan Plan: MELISSA peter. Nutritional Asmnt/Malnutr-PDOC - Dietary Evaluation Malnutrition Findings (Please click <Entered> for more info): Nutritional Asmnt/Malnutrition Start: 07/28/18 16: 47 Text: Status: Complete Freq: Protocol: Document 07/28/18 16:47 HENG (Rec: 07/28/18 17:05 HENG [email or web address]) Nutritional Asmnt/Malnutrition Patient General Information Nutritional Screening Moderate Risk Consult Diagnosis hyponatremia, bleeding at colostomy Pertinent Medical Hx/Surgical Hx bilateral AKA, HTN, DM, chronic pain syndrom, colostomy Subjective Information Consult received for stage IV pressure ulcer right buttocks. Pt seen lying in bed at time of visit, awake, not willing to talk. Pt reported poor appetite, abdominal pain, not interested in infomation of diabetic diet. Per EMR, PO intake 45-75%. Glucose 232 at admission noted. Per nurse, no more bleeding, stool OB possitive. Current Diet Order/ Nutrition Support CCHO 60gm, 2 gram sodium Pertinent Medications vit C, D5-0.45ns, olace, novolog, culturelle, levaquin, vit D3 Pertinent Labs 07/28 glucose 137, POC 126-224 9/ Na 134, Cr 0.6, Glucose 146, POC 131-159 9/ Cr 0.6, glucose 176, A1c 8 .1, POC 125-140 Nutritional Hx/Data Height 1.52 m Height (Calculated Centimeters) 152.4 Current Weight (lbs) 75.296 kg Weight (Calculated Kilograms) 75.3 Weight (Calculated Grams) 56332.3 [place] Body Weight 106 Body Mass Index (BMI) 32.4 Weight Status Overweight GI Symptoms GI Symptoms None Last BM none Difficult in: None Skin Integrity/Comment: Wound care note: stage IV pressure ulcer, erythema to buttocks/sacral Current %PO Fair (50-74%) Estimated Nutritional Goals BEE in Kcals: Adj wt of IBW Calories/Kcals/Kg 25-30 Kcals Calculated 7929-3227 Protein: Adj wt of IBW Protein g/k.2 Protein Calculated 66 Fluid: ml 1375-1650ml (1ml/kcal) Nutritional Problem 2. Problem Problem inadequate food intake Etiology poor appetite, abd pain Signs/Symptoms: PO intake 45-75% 1. Problem Problem altered nutrition related labs Etiology hx of DM Signs/Symptoms: glucose 137-176, A1c 8.1, Malnutrition Alert Is there a minimum of two criteria No selected? Query Text:Check all the applicable criteria. A minimum of two criteria are recommended for diagnosis of either severe or non-severe malnutrition. Malnutrition Related to Morbid Obesity Malnutrition related to morbid obesity No Intervention/Recommendation Comments 1. [facility] and 2g Na diet as ordered. 2. Consider adding Carlos BID to help with wound healing. 3. Monitor PO intake, wt, GI function and labs and skin integrity 4. F/U as moderate risk in 3-5 days, 07/31-08/02, PO check 07/30 Expected Outcomes/Goals Expected Outcomes/Goals 1. PO intake to meet at least 75% of nutritional needs. 2. Wt stability, skin to remain intact, labs to approach WNL. 1. Continue with current diet as ordered. 2. Monitor PO intake, wt, labs and skin integrity 3. F/U as
[2018-08-03] MEDS: HYDROmorphone 2 mg/mL 1mL Vial IVP PRN ×5 (02:03→17:46)
[2018-08-03] MEDS: D5-0.45NS 1,000 ML IV SCH (03:25)
[2018-08-03] MEDS: INSULIN ASPART SLIDING SCALE 100 UNITS/ML UNIT SUBQ SCH ×3 (07:30→17:21)
--- NOTE | 2018-08-03 09:30 | General Progress Note ---
Subjective - Review of Systems Service Date: 08/03/18 Events since last encounter: eating, colostomy output moderate Objective - Results Result Diagrams: 07/31/18 05:25 07/31/18 05:25 Recent Labs: Laboratory Last Values WBC 11.4 Th/cmm (4.8-10.8) H 07/31/18 05:25 RBC 5.53 Mil/cmm (4.30-5.70) 07/31/18 05:25 Hgb 15.8 gm/dL (12-16) 07/31/18 05:25 Hct 48.3 % (41.0-60) 07/31/18 05:25 MCV 87.4 fl (80-99) 07/31/18 05:25 MCH 28.6 pg (26.0-30.0) 07/31/18 05:25 MCHC Differential 32.8 pg (28.0-36.0) 07/31/18 05:25 RDW 14.4 % (11.5-20.0) 07/31/18 05:25 Plt Count 279 Th/cmm (150-400) 07/31/18 05:25 MPV 7.5 fl 07/31/18 05:25 Neutrophils % 69.9 % (40.0-80.0) 07/31/18 05:25 Lymphocytes % 14.6 % (20.0-50.0) L 07/31/18 05:25 Monocytes % 8.0 % (2.0-10.0) 07/31/18 05:25 Eosinophils % 4.1 % (0.0-5.0) 07/31/18 05:25 Basophils % 3.4 % (0.0-2.0) H 07/31/18 05:25 PT 9.6 SECONDS (9.5-11.5) 07/24/18 23:55 INR 0.92 (0.5-1.4) 07/24/18 23:55 PTT (Actin FS) 29.6 SECONDS (26.0-38.0) 07/24/18 23:55 Sodium 137 mEq/L (136-145) 07/31/18 05:25 Potassium 3.9 mEq/L (3.5-5.1) 07/31/18 05:25 Chloride 103 mEq/L (98-107) 07/31/18 05:25 Carbon Dioxide 27.5 mEq/L (21.0-31.0) 07/31/18 05:25 Anion Gap 10.4 (7.0-16.0) 07/31/18 05:25 BUN 10 mg/dL (7-25) 07/31/18 05:25 Creatinine 0.8 mg/dL (0.7-1.3) 07/31/18 05:25 Est GFR ( Amer) > 60.0 ml/min (>90) 07/31/18 05:25 Est GFR (Non-Af Amer) > 60.0 ml/min 07/31/18 05:25 BUN/Creatinine Ratio 12.5 07/31/18 05:25 Glucose 135 mg/dL (70-105) H 07/31/18 05:25 POC Glucose 132 MG/DL (70 - 105) H 08/02/18 17:10 Hemoglobin A1c % 8.1 % (4.0-6.0) H 07/25/18 06:05 Whole Bld Lactic Acid 1.00 mmol/L (0.60-1.99) 07/25/18 00:00 Calcium 8.8 mg/dL (8.6-10.3) 07/31/18 05:25 Total Bilirubin 0.4 mg/dL (0.3-1.0) 07/31/18 05:25 AST 17 U/L (13-39) 07/31/18 05:25 ALT 19 U/L (7-52) 07/31/18 05:25 Alkaline Phosphatase 73 U/L (34-104) 07/31/18 05:25 Total Protein 6.2 gm/dL (6.0-8.3) 07/31/18 05:25 Albumin 3.2 gm/dL (4.2-5.5) L 07/31/18 05:25 Globulin 3.0 gm/dL 07/31/18 05:25 Albumin/Globulin Ratio 1.1 (1.0-1.8) 07/31/18 05:25 Amylase 16 U/L (29-103) L 07/24/18 23:55 Lipase 10 U/L (11-82) L 07/24/18 23:55 Urine Source CLEAN C 07/25/18 15:44 Urine Color YELLOW 07/25/18 15:44 Urine Clarity CLOUDY (CLEAR) 07/25/18 15:44 Urine pH 6.0 (4.6 - 8.0) 07/25/18 15:44 Ur Specific [place] 1.020 (1.005-1.030) 07/25/18 15:44 Urine Protein 30 mg/dL (NEGATIVE) H 07/25/18 15:44 Urine Glucose (UA) NEGATIVE mg/dL (NEGATIVE) 07/25/18 15:44 Urine Ketones NEGATIVE mg/dL (NEGATIVE) 07/25/18 15:44 Urine Blood TRACE (NEGATIVE) 07/25/18 15:44 Urine Nitrate NEGATIVE (NEGATIVE) 07/25/18 15:44 Urine Bilirubin NEGATIVE (NEGATIVE) 07/25/18 15:44 Urine Urobilinogen 0.2 E.U./dL (0.2 - 1.0) 07/25/18 15:44 Ur Leukocyte Esterase LARGE (NEGATIVE) H 07/25/18 15:44 Urine RBC 2-5 /hpf (0-5) H 07/25/18 15:44 Urine WBC 50-100 /hpf (0-5) H 07/25/18 15:44 Ur Epithelial Cells OCCASIONAL /lpf (FEW) 07/25/18 15:44 Urine Bacteria MODERATE /hpf (NONE SEEN) H 07/25/18 15:44 Stool Occult Blood POSITIVE (NEGATIVE) H 07/27/18 06:15 Blood Type O NEGATIVE 07/25/18 03:05 Antibody Screen NEGATIVE 07/25/18 03:05 - Physical Exam Vitals and I&O: Vital Signs Temp 98.6 F 08/03/18 04:00 Pulse 97 08/03/18 04:00 Resp 17 08/03/18 04:00 BP 112/76 08/03/18 04:00 Pulse Ox 94 08/03/18 04:00 Intake & Output 08/02/18 08/03/18 08/03/18 18:59 06:59 18:59 Intake Total 1400 1080.833 Output Total 615 100 Balance 785 980.833 Weight (lbs) 78.018 kg 78.018 kg Intake: Intake, IV Amount 1000 480.833 D5-0.45NS 1,000 ml @ 50 1000 480.833 mls/hr IV .Q20H [facility] Rx#: [id number] Oral 400 600 Output: Urine 600 100 Other 15 0 Other: # Bowel Movements 0 0 Weight Source Bedscale Estimated Active Medications: Current Medications Acetaminophen (Tylenol) 650 mg PO Q4HR PRN PRN Reason: FEVER TEMP >101, AND MILD PAIN Stop: 09/23/18 09:01 Acetaminophen (Tylenol Extra Strength) 1,000 mg PO Q4HR PRN PRN Reason: Pain (Moderate) Stop: 09/23/18 09:01 Al Hydrox/Mg Hydrox/Simethicone (Maalox) 30 ml PO Q4H PRN PRN Reason: Abdominal Pain Stop: 09/23/18 09:01 Last Admin: 07/29/18 18:00 Dose: 30 ml Amitriptyline HCl (Elavil) 50 mg PO HS [facility] Stop: 09/23/18 20:59 Last Admin: 08/02/18 21:00 Dose: 50 mg Ascorbic Acid (Vitamin C) 500 mg PO DAILY [facility] Stop: 09/24/18 08:59 Last Admin: 08/02/18 08:18 Dose: 500 mg Aspirin (Aspirin Chewable) 81 mg PO DAILY [facility] Stop: 09/23/18 08:59 Last Admin: 08/02/18 08:19 Dose: 81 mg Baclofen (Lioresal) 10 mg PO Q8HR [facility] Stop: 09/23/18 12:59 Last Admin: 08/03/18 05:15 Dose: 10 mg Docusate Sodium (Colace) 100 mg PO DAILY [facility] Stop: 09/23/18 08:59 Last Admin: 08/02/18 08:20 Dose: Not Given Duloxetine HCl (Cymbalta) 30 mg PO DAILY [facility] Stop: 09/23/18 09:14 Last Admin: 08/02/18 08:18 Dose: 30 mg Hydromorphone HCl (Dilaudid) 1 mg IVP Q4HR PRN PRN Reason: Pain (Moderate) Stop: 09/23/18 02:55 Last Admin: 08/02/18 23:39 Dose: 1 mg Hydromorphone HCl (Dilaudid) 2 mg IVP Q3H PRN PRN Reason: Abdominal Pain Stop: 09/30/18 10:08 Last Admin: 08/03/18 05:15 Dose: 2 mg Dextrose/Sodium Chloride (D5-0.45ns) 1,000 mls @ 50 mls/hr IV .Q20H [facility] Stop: 09/29/18 14:13 Last Admin: 08/03/18 03:25 Dose: 50 mls/hr Dextrose/Sodium Chloride (D5-0.45ns) 1,000 mls @ 100 mls/hr IV .Q10H [facility] Stop: 10/01/18 19:22 Insulin Aspart (Novolog Insulin Sliding Scale) 0 units SUBQ ACHS [facility]; Protocol Stop: 09/23/18 11:29 Last Admin: 08/03/18 07:30 Dose: Not Given Ketorolac Tromethamine (Toradol) 30 mg IV Q6HR PRN PRN Reason: Pain (Mild) Stop: 09/30/18 09:57 Lactobacillus Rhamnosus (Culturelle 15b) 1 each PO DAILY [facility] Stop: 09/24/18 08:59 Last Admin: 08/02/18 08:18 Dose: 1 each Lisinopril (Zestril) 10 mg PO DAILY [facility] Stop: 09/23/18 08:59 Last Admin: 08/02/18 08:18 Dose: 10 mg Miscellaneous (Probiotic Screen) 1 ea MC PRN PRN PRN Reason: PROTOCOL Stop: 09/27/18 11:41 Ondansetron HCl (Zofran) 4 mg IV Q6H PRN PRN Reason: Nausea / Vomiting Stop: 09/23/18 09:01 Pregabalin (Lyrica) 150 mg PO BID [facility] Stop: 09/23/18 09:14 Last Admin: 08/02/18 16:59 Dose: 150 mg Vitamin D (Vitamin D3) 4,000 iu PO DAILY [facility] Stop: 09/23/18 09:14 Last Admin: 08/02/18 08:18 Dose: 4,000 iu General: Alert, No acute distress HEENT: Atraumatic Neck: no Thyromegaly Cardiovascular: Regular rate, Normal S1, Normal S2 Lungs: Clear to auscultation, Normal air movement Abdomen: Bowel sounds, Soft, Other (colostomy bag with brown stool) - Procedures Procedures: Procedures Procedure Code Date EXCISION OF RIGHT HIP MUSCLE, OPEN APPROACH [id number] 07/25/18 INSPECTION OF LOWER INTESTINAL TRACT, ENDO [id number] 05/20/18 REPAIR ABDOMINAL WALL, OPEN APPROACH [id number] 07/25/18 Assessment/Plan - Problem List Patient Problems: All Active Problems Chronic pain syndrome (Acute) G89.4 Diabetes (Acute) E11.9 Gastrointestinal bleed (Acute) K92.2 HTN (hypertension) (Acute) I10 Nutritional Asmnt/Malnutr-PDOC - Dietary Evaluation Malnutrition Findings (Please click <Entered> for more info): Nutritional Asmnt/Malnutrition Start: 07/28/18 16: 47 Text: Status: Complete Freq: Protocol: Document 07/28/18 16:47 KRISTI (Rec: 07/28/18 17:05 [email or web address] Nutritional Asmnt/Malnutrition Patient General Information Nutritional Screening Moderate Risk Consult Diagnosis hyponatremia, bleeding at colostomy Pertinent Medical Hx/Surgical Hx bilateral AKA, HTN, DM, chronic pain syndrom, colostomy Subjective Information Consult received for stage IV pressure ulcer right buttocks. Pt seen lying in bed at time of visit, awake, not willing to talk. Pt reported poor appetite, abdominal pain, not interested in infomation of diabetic diet. Per EMR, PO intake 45-75%. Glucose 232 at admission noted. Per nurse, no more bleeding, stool OB possitive. Current Diet Order/ Nutrition Support CCHO 60gm, 2 gram sodium Pertinent Medications vit C, D5-0.45ns, olace, novolog, culturelle, levaquin, vit D3 Pertinent Labs 07/28 glucose 137, POC 126-224 9/ Na 134, Cr 0.6, Glucose 146, POC 131-159 9/ Cr 0.6, glucose 176, A1c 8 .1, POC 125-140 Nutritional Hx/Data Height 1.52 m Height (Calculated Centimeters) 152.4 Current Weight (lbs) 75.296 kg Weight (Calculated Kilograms) 75.3 Weight (Calculated Grams) 69779.3 [place] Body Weight 106 Body Mass Index (BMI) 32.4 Weight Status Overweight GI Symptoms GI Symptoms None Last BM none Difficult in: None Skin Integrity/Comment: Wound care note: stage IV pressure ulcer, erythema to buttocks/sacral Current %PO Fair (50-74%) Estimated Nutritional Goals BEE in Kcals: Adj wt of IBW Calories/Kcals/Kg 25-30 Kcals Calculated 5173-3675 Protein: Adj wt of IBW Protein g/k.2 Protein Calculated 66 Fluid: ml 1375-1650ml (1ml/kcal) Nutritional Problem 2. Problem Problem inadequate food intake Etiology poor appetite, abd pain Signs/Symptoms: PO intake 45-75% 1. Problem Problem altered nutrition related labs Etiology hx of DM Signs/Symptoms: glucose 137-176, A1c 8.1, Malnutrition Alert Is there a minimum of two criteria No selected? Query Text:Check all the applicable criteria. A minimum of two criteria are recommended for diagnosis of either severe or non-severe malnutrition. Malnutrition Related to Morbid Obesity Malnutrition related to morbid obesity No Intervention/Recommendation Comments 1. Continue with CCHO 60gm and 2g Na diet as ordered. 2. Consider adding Carlos BID to help with wound healing. 3. Monitor PO intake, wt, GI function and labs and skin integrity 4. F/U as moderate risk in 3-5 days, 07/31-08/02, PO check 07/30 Expected Outcomes/Goals Expected Outcomes/Goals 1. PO intake to meet at least 75% of nutritional needs. 2. Wt stability, skin to remain intact, labs to approach WNL. 1. Continue with current diet as ordered. 2. Monitor PO intake, wt, labs and skin integrity 3. F/U as
[2018-08-03] MEDS: Lactobacillus Rhamnosus GG 15 Billion CFU CAP.SPRINK PO SCH (10:01)
[2018-08-03] MEDS: Vitamin D3 2,000 IU SGL PO SCH (10:03)
[2018-08-03] MEDS: Multivitamin w/ Minerals Tab PO SCH (10:04)
[2018-08-03] MEDS: Aspirin 81mg Chewable Tab PO SCH (10:08)
[2018-08-03 10:29] LABS: HEMOGLOBIN 15.1 gm/dL (12-16); MEAN CELL VOLUME 85.6 fl (80-99); MEAN CORPUSCULAR HEMOGLOBIN 28.7 pg (26.0-30.0); MEAN CORPUSCULAR HGB CONC 33.6 pg (28.0-36.0); PLATELET COUNT 262 Th/cmm (150-400); RED BLOOD COUNT 5.26 Mil/cmm (4.30-5.70); RED CELL DISTRIBUTION WIDTH 14.1 % (11.5-20.0)
[2018-08-03 10:52] LABS: ALB/GLOB RATIO 1.1 (1.0-1.8); ALBUMIN 3.4 gm/dL (4.2-5.5); ALKALINE PHOSPHATASE 80 U/L (34-104); ANION GAP 11.9 (7.0-16.0); BUN - UREA NITROGEN 4 mg/dL (7-25); CALCIUM SERUM 8.8 mg/dL (8.6-10.3); CARBON DIOXIDE 24.7 mEq/L (21.0-31.0); CHLORIDE 101 mEq/L (98-107); CREATININE - SERUM 0.6 mg/dL (0.7-1.3); GFR AFRICAN-AMERICAN > 60.0 ml/min (>90); GFR NON AFRICAN-AMERICAN > 60.0 ml/min; GLUCOSE 149 mg/dL (70-105); POTASSIUM SERUM 3.6 mEq/L (3.5-5.1); SGOT 21 U/L (13-39); SGPT/ALT 14 U/L (7-52); SODIUM SERUM 134 mEq/L (136-145); TOTAL PROTEIN,SERUM 6.4 gm/dL (6.0-8.3)
[2018-08-03 10:54] LABS: BAND NEUTROPHILE 1 % (0-10); BASOPHIL 0 % (0-3); EOSINOPHIL 0 % (0-5); LYMPHOCYTE 6 % (20-50); MONOCYTE 5 % (2-10); NEUTROPHILS 88 % (40-80)
--- NOTE | 2018-08-03 12:12 | Infectious Disease Prog Note ---
Infectious Disease Subjective - Review of Systems Service Date: 08/03/18 Subjective: There is no new change, no fever. Infectious Disease Objective - Results Result Diagrams: 08/03/18 10:13 08/03/18 10:13 Recent Labs: Laboratory Last Values WBC 16.0 Th/cmm (4.8-10.8) H 08/03/18 10:13 RBC 5.26 Mil/cmm (4.30-5.70) 08/03/18 10:13 Hgb 15.1 gm/dL (12-16) 08/03/18 10:13 Hct 45.0 % (41.0-60) 08/03/18 10:13 MCV 85.6 fl (80-99) 08/03/18 10:13 MCH 28.7 pg (26.0-30.0) 08/03/18 10:13 MCHC Differential 33.6 pg (28.0-36.0) 08/03/18 10:13 RDW 14.1 % (11.5-20.0) 08/03/18 10:13 Plt Count 262 Th/cmm (150-400) 08/03/18 10:13 MPV 8.0 fl 08/03/18 10:13 Add Manual Diff YES 08/03/18 10:13 Neutrophils % 69.9 % (40.0-80.0) 07/31/18 05:25 Band Neutrophils % 1 % (0-10) 08/03/18 10:13 Lymphocytes % 14.6 % (20.0-50.0) L 07/31/18 05:25 Monocytes % 8.0 % (2.0-10.0) 07/31/18 05:25 Eosinophils % 4.1 % (0.0-5.0) 07/31/18 05:25 Basophils % 3.4 % (0.0-2.0) H 07/31/18 05:25 Neutrophils (Manual) 88 % (40-80) H 08/03/18 10:13 Lymphocytes 6 % (20-50) L 08/03/18 10:13 Monocytes 5 % (2-10) 08/03/18 10:13 Eosinophils 0 % (0-5) 08/03/18 10:13 Basophils 0 % (0-3) 08/03/18 10:13 PT 9.6 SECONDS (9.5-11.5) 07/24/18 23:55 INR 0.92 (0.5-1.4) 07/24/18 23:55 PTT (Actin FS) 29.6 SECONDS (26.0-38.0) 07/24/18 23:55 Sodium 134 mEq/L (136-145) L 08/03/18 10:13 Potassium 3.6 mEq/L (3.5-5.1) 08/03/18 10:13 Chloride 101 mEq/L (98-107) 08/03/18 10:13 Carbon Dioxide 24.7 mEq/L (21.0-31.0) 08/03/18 10:13 Anion Gap 11.9 (7.0-16.0) 08/03/18 10:13 BUN 4 mg/dL (7-25) L 08/03/18 10:13 Creatinine 0.6 mg/dL (0.7-1.3) L 08/03/18 10:13 Est GFR ( Amer) > 60.0 ml/min (>90) 08/03/18 10:13 Est GFR (Non-Af Amer) > 60.0 ml/min 08/03/18 10:13 BUN/Creatinine Ratio 6.7 08/03/18 10:13 Glucose 149 mg/dL (70-105) H 08/03/18 10:13 POC Glucose 132 MG/DL (70 - 105) H 08/02/18 17:10 Hemoglobin A1c % 8.1 % (4.0-6.0) H 07/25/18 06:05 Whole Bld Lactic Acid 1.00 mmol/L (0.60-1.99) 07/25/18 00:00 Calcium 8.8 mg/dL (8.6-10.3) 08/03/18 10:13 Total Bilirubin 1.0 mg/dL (0.3-1.0) 08/03/18 10:13 AST 21 U/L (13-39) 08/03/18 10:13 ALT 14 U/L (7-52) 08/03/18 10:13 Alkaline Phosphatase 80 U/L (34-104) 08/03/18 10:13 Total Protein 6.4 gm/dL (6.0-8.3) 08/03/18 10:13 Albumin 3.4 gm/dL (4.2-5.5) L 08/03/18 10:13 Globulin 3.0 gm/dL 08/03/18 10:13 Albumin/Globulin Ratio 1.1 (1.0-1.8) 08/03/18 10:13 Amylase 16 U/L (29-103) L 07/24/18 23:55 Lipase 10 U/L (11-82) L 07/24/18 23:55 Urine Source CLEAN C 07/25/18 15:44 Urine Color YELLOW 07/25/18 15:44 Urine Clarity CLOUDY (CLEAR) 07/25/18 15:44 Urine pH 6.0 (4.6 - 8.0) 07/25/18 15:44 Ur Specific [place] 1.020 (1.005-1.030) 07/25/18 15:44 Urine Protein 30 mg/dL (NEGATIVE) H 07/25/18 15:44 Urine Glucose (UA) NEGATIVE mg/dL (NEGATIVE) 07/25/18 15:44 Urine Ketones NEGATIVE mg/dL (NEGATIVE) 07/25/18 15:44 Urine Blood TRACE (NEGATIVE) 07/25/18 15:44 Urine Nitrate NEGATIVE (NEGATIVE) 07/25/18 15:44 Urine Bilirubin NEGATIVE (NEGATIVE) 07/25/18 15:44 Urine Urobilinogen 0.2 E.U./dL (0.2 - 1.0) 07/25/18 15:44 Ur Leukocyte Esterase LARGE (NEGATIVE) H 07/25/18 15:44 Urine RBC 2-5 /hpf (0-5) H 07/25/18 15:44 Urine WBC 50-100 /hpf (0-5) H 07/25/18 15:44 Ur Epithelial Cells OCCASIONAL /lpf (FEW) 07/25/18 15:44 Urine Bacteria MODERATE /hpf (NONE SEEN) H 07/25/18 15:44 Stool Occult Blood POSITIVE (NEGATIVE) H 07/27/18 06:15 Blood Type O NEGATIVE 07/25/18 03:05 Antibody Screen NEGATIVE 07/25/18 03:05 - Physical Exam Vitals and I&O: Vital Signs Temp 97.4 F 08/03/18 11:52 Pulse 87 08/03/18 11:52 Resp 19 08/03/18 11:52 BP 123/71 08/03/18 11:52 Pulse Ox 96 08/03/18 11:52 Intake & Output 08/02/18 08/03/18 08/03/18 18:59 06:59 18:59 Intake Total 1400 1080.833 Output Total 615 100 Balance 785 980.833 Weight (lbs) 78.018 kg 78.018 kg Intake: Intake, IV Amount 1000 480.833 D5-0.45NS 1,000 ml @ 50 1000 480.833 mls/hr IV .Q20H [facility] Rx#: [id number] Oral 400 600 Output: Urine 600 100 Other 15 0 Other: # Bowel Movements 0 0 Weight Source Bedscale Estimated Active Medications: Current Medications Acetaminophen (Tylenol) 650 mg PO Q4HR PRN PRN Reason: FEVER TEMP >101, AND MILD PAIN Stop: 09/23/18 09:01 Acetaminophen (Tylenol Extra Strength) 1,000 mg PO Q4HR PRN PRN Reason: Pain (Moderate) Stop: 09/23/18 09:01 Al Hydrox/Mg Hydrox/Simethicone (Maalox) 30 ml PO Q4H PRN PRN Reason: Abdominal Pain Stop: 09/23/18 09:01 Last Admin: 07/29/18 18:00 Dose: 30 ml Amitriptyline HCl (Elavil) 50 mg PO HS [facility] Stop: 09/23/18 20:59 Last Admin: 08/02/18 21:00 Dose: 50 mg Ascorbic Acid (Vitamin C) 500 mg PO DAILY [facility] Stop: 09/24/18 08:59 Last Admin: 08/03/18 10:04 Dose: 500 mg Aspirin (Aspirin Chewable) 81 mg PO DAILY [facility] Stop: 09/23/18 08:59 Last Admin: 08/03/18 10:08 Dose: 81 mg Baclofen (Lioresal) 10 mg PO Q8HR [facility] Stop: 09/23/18 12:59 Last Admin: 08/03/18 05:15 Dose: 10 mg Docusate Sodium (Colace) 100 mg PO DAILY [facility] Stop: 09/23/18 08:59 Last Admin: 08/03/18 10:04 Dose: 100 mg Duloxetine HCl (Cymbalta) 30 mg PO DAILY [facility] Stop: 09/23/18 09:14 Last Admin: 08/03/18 10:04 Dose: 30 mg Hydromorphone HCl (Dilaudid) 1 mg IVP Q4HR PRN PRN Reason: Pain (Moderate) Stop: 09/23/18 02:55 Last Admin: 08/02/18 23:39 Dose: 1 mg Hydromorphone HCl (Dilaudid) 2 mg IVP Q3H PRN PRN Reason: Abdominal Pain Stop: 09/30/18 10:08 Last Admin: 08/03/18 09:48 Dose: 2 mg Dextrose/Sodium Chloride (D5-0.45ns) 1,000 mls @ 50 mls/hr IV .Q20H [facility] Stop: 09/29/18 14:13 Last Admin: 08/03/18 03:25 Dose: 50 mls/hr Dextrose/Sodium Chloride (D5-0.45ns) 1,000 mls @ 100 mls/hr IV .Q10H [facility] Stop: 10/01/18 19:22 Insulin Aspart (Novolog Insulin Sliding Scale) 0 units SUBQ ACHS [facility]; Protocol Stop: 09/23/18 11:29 Last Admin: 08/03/18 07:30 Dose: Not Given Ketorolac Tromethamine (Toradol) 30 mg IV Q6HR PRN PRN Reason: Pain (Mild) Stop: 09/30/18 09:57 Lactobacillus Rhamnosus (Culturelle 15b) 1 each PO DAILY [facility] Stop: 09/24/18 08:59 Last Admin: 08/03/18 10:01 Dose: 1 each Lisinopril (Zestril) 10 mg PO DAILY [facility] Stop: 09/23/18 08:59 Last Admin: 08/03/18 10:06 Dose: 10 mg Miscellaneous (Probiotic Screen) 1 ea MC PRN PRN PRN Reason: PROTOCOL Stop: 09/27/18 11:41 Ondansetron HCl (Zofran) 4 mg IV Q6H PRN PRN Reason: Nausea / Vomiting Stop: 09/23/18 09:01 Pregabalin (Lyrica) 150 mg PO BID [facility] Stop: 09/23/18 09:14 Last Admin: 08/03/18 10:01 Dose: 150 mg Vitamin D (Vitamin D3) 4,000 iu PO DAILY [facility] Stop: 09/23/18 09:14 Last Admin: 08/03/18 10:03 Dose: 4,000 iu General: no acute distress, well developed, well nourished HEENT: atraumatic, normocephalic, PERRLA, EOMI Neck: supple, no thyromegaly Cardiovascular: S1S2, regular Lungs: clear to auscultation bilaterally, clear to percussion Abdomen: soft, no tender, no distended Extremities: no cyanosis, no clubbing, no edema Neurological: awake, alert, oriented Skin: intact - Procedures Procedures: Procedures Procedure Code Date EXCISION OF RIGHT HIP MUSCLE, OPEN APPROACH [id number] 07/25/18 INSPECTION OF LOWER INTESTINAL TRACT, ENDO [id number] 05/20/18 REPAIR ABDOMINAL WALL, OPEN APPROACH [id number] 07/25/18 Infectious Disease Assmt/Plan - Problem List Patient Problems: All Active Problems Chronic pain syndrome (Acute) G89.4 Diabetes (Acute) E11.9 Gastrointestinal bleed (Acute) K92.2 HTN (hypertension) (Acute) I10 - Assessment Assessment: 1. Leukocytosis improved. 2. UTI. 3. Diabetes mellitus type 2. 4. Hypertension. 5. Colostomy malfunction. - Plan Plan: Off antibiotics. Nutritional Asmnt/Malnutr-PDOC - Dietary Evaluation Malnutrition Findings (Please click <Entered> for more info): Nutritional Asmnt/Malnutrition Start: 07/28/18 16: 47 Text: Status: Complete Freq: Protocol: Document 07/28/18 16:47 LCHENG (Rec: 07/28/18 17:05 LCHENG [email or web address]) Nutritional Asmnt/Malnutrition Patient General Information Nutritional Screening Moderate Risk Consult Diagnosis hyponatremia, bleeding at colostomy Pertinent Medical Hx/Surgical Hx bilateral AKA, HTN, DM, chronic pain syndrom, colostomy Subjective Information Consult received for stage IV pressure ulcer right buttocks. Pt seen lying in bed at time of visit, awake, not willing to talk. Pt reported poor appetite, abdominal pain, not interested in infomation of diabetic diet. Per EMR, PO intake 45-75%. Glucose 232 at admission noted. Per nurse, no more bleeding, stool OB possitive. Current Diet Order/ Nutrition Support CCHO 60gm, 2 gram sodium Pertinent Medications vit C, D5-0.45ns, olace, novolog, culturelle, levaquin, vit D3 Pertinent Labs 07/28 glucose 137, POC 126-224 9/2 Na 134, Cr 0.6, Glucose 146, POC 131-159 9/1 Cr 0.6, glucose 176, A1c 8 .1, POC 125-140 Nutritional Hx/Data Height 1.52 m Height (Calculated Centimeters) 152.4 Current Weight (lbs) 75.296 kg Weight (Calculated Kilograms) 75.3 Weight (Calculated Grams) 21014.3 [place] Body Weight 106 Body Mass Index (BMI) 32.4 Weight Status Overweight GI Symptoms GI Symptoms None Last BM none Difficult in: None Skin Integrity/Comment: Wound care note: stage IV pressure ulcer, erythema to buttocks/sacral Current %PO Fair (50-74%) Estimated Nutritional Goals BEE in Kcals: Adj wt of IBW Calories/Kcals/Kg 25-30 Kcals Calculated 7862-5994 Protein: Adj wt of IBW Protein g/k.2 Protein Calculated 66 Fluid: ml 1375-1650ml (1ml/kcal) Nutritional Problem 2. Problem Problem inadequate food intake Etiology poor appetite, abd pain Signs/Symptoms: PO intake 45-75% 1. Problem Problem altered nutrition related labs Etiology hx of DM Signs/Symptoms: glucose 137-176, A1c 8.1, Malnutrition Alert Is there a minimum of two criteria No selected? Query Text:Check all the applicable criteria. A minimum of two criteria are recommended for diagnosis of either severe or non-severe malnutrition. Malnutrition Related to Morbid Obesity Malnutrition related to morbid obesity No Intervention/Recommendation Comments 1. Continue with CCHO 60gm and 2g Na diet as ordered. 2. Consider adding Carlos BID to help with wound healing. 3. Monitor PO intake, wt, GI function and labs and skin integrity 4. F/U as moderate risk in 3-5 days, 07/31-08/02, PO check 07/30 Expected Outcomes/Goals Expected Outcomes/Goals 1. PO intake to meet at least 75% of nutritional needs. 2. Wt stability, skin to remain intact, labs to approach WNL. 1. Continue with current diet as ordered. 2. Monitor PO intake, wt, labs and skin integrity 3. F/U as
--- NOTE | 2018-08-03 15:25 | General Progress Note ---
Subjective - Review of Systems Events since last encounter: no change in no distress Objective - Results Result Diagrams: 08/03/18 10:13 08/03/18 10:13 Recent Labs: Laboratory Last Values WBC 16.0 Th/cmm (4.8-10.8) H 08/03/18 10:13 RBC 5.26 Mil/cmm (4.30-5.70) 08/03/18 10:13 Hgb 15.1 gm/dL (12-16) 08/03/18 10:13 Hct 45.0 % (41.0-60) 08/03/18 10:13 MCV 85.6 fl (80-99) 08/03/18 10:13 MCH 28.7 pg (26.0-30.0) 08/03/18 10:13 MCHC Differential 33.6 pg (28.0-36.0) 08/03/18 10:13 RDW 14.1 % (11.5-20.0) 08/03/18 10:13 Plt Count 262 Th/cmm (150-400) 08/03/18 10:13 MPV 8.0 fl 08/03/18 10:13 Add Manual Diff YES 08/03/18 10:13 Neutrophils % 69.9 % (40.0-80.0) 07/31/18 05:25 Band Neutrophils % 1 % (0-10) 08/03/18 10:13 Lymphocytes % 14.6 % (20.0-50.0) L 07/31/18 05:25 Monocytes % 8.0 % (2.0-10.0) 07/31/18 05:25 Eosinophils % 4.1 % (0.0-5.0) 07/31/18 05:25 Basophils % 3.4 % (0.0-2.0) H 07/31/18 05:25 Neutrophils (Manual) 88 % (40-80) H 08/03/18 10:13 Lymphocytes 6 % (20-50) L 08/03/18 10:13 Monocytes 5 % (2-10) 08/03/18 10:13 Eosinophils 0 % (0-5) 08/03/18 10:13 Basophils 0 % (0-3) 08/03/18 10:13 PT 9.6 SECONDS (9.5-11.5) 07/24/18 23:55 INR 0.92 (0.5-1.4) 07/24/18 23:55 PTT (Actin FS) 29.6 SECONDS (26.0-38.0) 07/24/18 23:55 Sodium 134 mEq/L (136-145) L 08/03/18 10:13 Potassium 3.6 mEq/L (3.5-5.1) 08/03/18 10:13 Chloride 101 mEq/L (98-107) 08/03/18 10:13 Carbon Dioxide 24.7 mEq/L (21.0-31.0) 08/03/18 10:13 Anion Gap 11.9 (7.0-16.0) 08/03/18 10:13 BUN 4 mg/dL (7-25) L 08/03/18 10:13 Creatinine 0.6 mg/dL (0.7-1.3) L 08/03/18 10:13 Est GFR ( Amer) > 60.0 ml/min (>90) 08/03/18 10:13 Est GFR (Non-Af Amer) > 60.0 ml/min 08/03/18 10:13 BUN/Creatinine Ratio 6.7 08/03/18 10:13 Glucose 149 mg/dL (70-105) H 08/03/18 10:13 POC Glucose 132 MG/DL (70 - 105) H 08/02/18 17:10 Hemoglobin A1c % 8.1 % (4.0-6.0) H 07/25/18 06:05 Whole Bld Lactic Acid 1.00 mmol/L (0.60-1.99) 07/25/18 00:00 Calcium 8.8 mg/dL (8.6-10.3) 08/03/18 10:13 Total Bilirubin 1.0 mg/dL (0.3-1.0) 08/03/18 10:13 AST 21 U/L (13-39) 08/03/18 10:13 ALT 14 U/L (7-52) 08/03/18 10:13 Alkaline Phosphatase 80 U/L (34-104) 08/03/18 10:13 Total Protein 6.4 gm/dL (6.0-8.3) 08/03/18 10:13 Albumin 3.4 gm/dL (4.2-5.5) L 08/03/18 10:13 Globulin 3.0 gm/dL 08/03/18 10:13 Albumin/Globulin Ratio 1.1 (1.0-1.8) 08/03/18 10:13 Amylase 16 U/L (29-103) L 07/24/18 23:55 Lipase 10 U/L (11-82) L 07/24/18 23:55 Urine Source CLEAN C 07/25/18 15:44 Urine Color YELLOW 07/25/18 15:44 Urine Clarity CLOUDY (CLEAR) 07/25/18 15:44 Urine pH 6.0 (4.6 - 8.0) 07/25/18 15:44 Ur Specific [place] 1.020 (1.005-1.030) 07/25/18 15:44 Urine Protein 30 mg/dL (NEGATIVE) H 07/25/18 15:44 Urine Glucose (UA) NEGATIVE mg/dL (NEGATIVE) 07/25/18 15:44 Urine Ketones NEGATIVE mg/dL (NEGATIVE) 07/25/18 15:44 Urine Blood TRACE (NEGATIVE) 07/25/18 15:44 Urine Nitrate NEGATIVE (NEGATIVE) 07/25/18 15:44 Urine Bilirubin NEGATIVE (NEGATIVE) 07/25/18 15:44 Urine Urobilinogen 0.2 E.U./dL (0.2 - 1.0) 07/25/18 15:44 Ur Leukocyte Esterase LARGE (NEGATIVE) H 07/25/18 15:44 Urine RBC 2-5 /hpf (0-5) H 07/25/18 15:44 Urine WBC 50-100 /hpf (0-5) H 07/25/18 15:44 Ur Epithelial Cells OCCASIONAL /lpf (FEW) 07/25/18 15:44 Urine Bacteria MODERATE /hpf (NONE SEEN) H 07/25/18 15:44 Stool Occult Blood POSITIVE (NEGATIVE) H 07/27/18 06:15 Blood Type O NEGATIVE 07/25/18 03:05 Antibody Screen NEGATIVE 07/25/18 03:05 - Physical Exam Vitals and I&O: Vital Signs Temp 97.4 F 08/03/18 11:52 Pulse 87 08/03/18 11:52 Resp 19 08/03/18 11:52 BP 123/71 08/03/18 11:52 Pulse Ox 96 08/03/18 11:52 Intake & Output 08/02/18 08/03/18 08/03/18 18:59 06:59 18:59 Intake Total 1400 1080.833 Output Total 615 100 Balance 785 980.833 Weight (lbs) 78.018 kg 78.018 kg 78.018 kg Intake: Intake, IV Amount 1000 480.833 D5-0.45NS 1,000 ml @ 50 1000 480.833 mls/hr IV .Q20H [facility] Rx#: [id number] Oral 400 600 Output: Urine 600 100 Other 15 0 Other: # Bowel Movements 0 0 Weight Source Bedscale Estimated Estimated Active Medications: Current Medications Acetaminophen (Tylenol) 650 mg PO Q4HR PRN PRN Reason: FEVER TEMP >101, AND MILD PAIN Stop: 09/23/18 09:01 Acetaminophen (Tylenol Extra Strength) 1,000 mg PO Q4HR PRN PRN Reason: Pain (Moderate) Stop: 09/23/18 09:01 Al Hydrox/Mg Hydrox/Simethicone (Maalox) 30 ml PO Q4H PRN PRN Reason: Abdominal Pain Stop: 09/23/18 09:01 Last Admin: 07/29/18 18:00 Dose: 30 ml Amitriptyline HCl (Elavil) 50 mg PO HS [facility] Stop: 09/23/18 20:59 Last Admin: 08/02/18 21:00 Dose: 50 mg Ascorbic Acid (Vitamin C) 500 mg PO DAILY [facility] Stop: 09/24/18 08:59 Last Admin: 08/03/18 10:04 Dose: 500 mg Aspirin (Aspirin Chewable) 81 mg PO DAILY [facility] Stop: 09/23/18 08:59 Last Admin: 08/03/18 10:08 Dose: 81 mg Baclofen (Lioresal) 10 mg PO Q8HR [facility] Stop: 09/23/18 12:59 Last Admin: 08/03/18 13:49 Dose: 10 mg Docusate Sodium (Colace) 100 mg PO DAILY [facility] Stop: 09/23/18 08:59 Last Admin: 08/03/18 10:04 Dose: 100 mg Duloxetine HCl (Cymbalta) 30 mg PO DAILY [facility] Stop: 09/23/18 09:14 Last Admin: 08/03/18 10:04 Dose: 30 mg Hydromorphone HCl (Dilaudid) 1 mg IVP Q4HR PRN PRN Reason: Pain (Moderate) Stop: 09/23/18 02:55 Last Admin: 08/02/18 23:39 Dose: 1 mg Hydromorphone HCl (Dilaudid) 2 mg IVP Q3H PRN PRN Reason: Abdominal Pain Stop: 09/30/18 10:08 Last Admin: 08/03/18 13:48 Dose: 2 mg Dextrose/Sodium Chloride (D5-0.45ns) 1,000 mls @ 50 mls/hr IV .Q20H [facility] Stop: 09/29/18 14:13 Last Admin: 08/03/18 03:25 Dose: 50 mls/hr Dextrose/Sodium Chloride (D5-0.45ns) 1,000 mls @ 100 mls/hr IV .Q10H [facility] Stop: 10/01/18 19:22 Last Admin: 08/03/18 14:00 Dose: 100 mls/hr Insulin Aspart (Novolog Insulin Sliding Scale) 0 units SUBQ ACHS [facility]; Protocol Stop: 09/23/18 11:29 Last Admin: 08/03/18 07:30 Dose: Not Given Ketorolac Tromethamine (Toradol) 30 mg IV Q6HR PRN PRN Reason: Pain (Mild) Stop: 09/30/18 09:57 Lactobacillus Rhamnosus (Culturelle 15b) 1 each PO DAILY [facility] Stop: 09/24/18 08:59 Last Admin: 08/03/18 10:01 Dose: 1 each Lisinopril (Zestril) 10 mg PO DAILY [facility] Stop: 09/23/18 08:59 Last Admin: 08/03/18 10:06 Dose: 10 mg Miscellaneous (Probiotic Screen) 1 ea MC PRN PRN PRN Reason: PROTOCOL Stop: 09/27/18 11:41 Ondansetron HCl (Zofran) 4 mg IV Q6H PRN PRN Reason: Nausea / Vomiting Stop: 09/23/18 09:01 Pregabalin (Lyrica) 150 mg PO BID [facility] Stop: 09/23/18 09:14 Last Admin: 08/03/18 10:01 Dose: 150 mg Vitamin D (Vitamin D3) 4,000 iu PO DAILY [facility] Stop: 09/23/18 09:14 Last Admin: 08/03/18 10:03 Dose: 4,000 iu General: Alert, No acute distress HEENT: Atraumatic Neck: no Thyromegaly Cardiovascular: Regular rate, Normal S1, Normal S2 Lungs: Clear to auscultation, Normal air movement Abdomen: Bowel sounds, Soft, Other (colostomy bag with brown stool) - Procedures Procedures: Procedures Procedure Code Date EXCISION OF RIGHT HIP MUSCLE, OPEN APPROACH [id number] 07/25/18 INSPECTION OF LOWER INTESTINAL TRACT, ENDO [id number] 05/20/18 REPAIR ABDOMINAL WALL, OPEN APPROACH [id number] 07/25/18 Assessment/Plan - Problem List Patient Problems: All Active Problems Chronic pain syndrome (Acute) G89.4 Diabetes (Acute) E11.9 Gastrointestinal bleed (Acute) K92.2 HTN (hypertension) (Acute) I10 - Plan Plan: as per order sheet Nutritional Asmnt/Malnutr-PDOC - Dietary Evaluation Malnutrition Findings (Please click <Entered> for more info): Nutritional Asmnt/Malnutrition Start: 07/28/18 16: 47 Text: Status: Complete Freq: Protocol: Document 07/28/18 16:47 LCHENG (Rec: 07/28/18 17:05 LCHENG [email or web address]) Nutritional Asmnt/Malnutrition Patient General Information Nutritional Screening Moderate Risk Consult Diagnosis hyponatremia, bleeding at colostomy Pertinent Medical Hx/Surgical Hx bilateral AKA, HTN, DM, chronic pain syndrom, colostomy Subjective Information Consult received for stage IV pressure ulcer right buttocks. Pt seen lying in bed at time of visit, awake, not willing to talk. Pt reported poor appetite, abdominal pain, not interested in infomation of diabetic diet. Per EMR, PO intake 45-75%. Glucose 232 at admission noted. Per nurse, no more bleeding, stool OB possitive. Current Diet Order/ Nutrition Support CCHO 60gm, 2 gram sodium Pertinent Medications vit C, D5-0.45ns, olace, novolog, culturelle, levaquin, vit D3 Pertinent Labs 07/28 glucose 137, POC 126-224 9/ Na 134, Cr 0.6, Glucose 146, POC 131-159 9/ Cr 0.6, glucose 176, A1c 8 .1, POC 125-140 Nutritional Hx/Data Height 1.52 m Height (Calculated Centimeters) 152.4 Current Weight (lbs) 75.296 kg Weight (Calculated Kilograms) 75.3 Weight (Calculated Grams) 61039.3 [place] Body Weight 106 Body Mass Index (BMI) 32.4 Weight Status Overweight GI Symptoms GI Symptoms None Last BM none Difficult in: None Skin Integrity/Comment: Wound care note: stage IV pressure ulcer, erythema to buttocks/sacral Current %PO Fair (50-74%) Estimated Nutritional Goals BEE in Kcals: Adj wt of IBW Calories/Kcals/Kg 25-30 Kcals Calculated 2784-2710 Protein: Adj wt of IBW Protein g/k.2 Protein Calculated 66 Fluid: ml 1375-1650ml (1ml/kcal) Nutritional Problem 2. Problem Problem inadequate food intake Etiology poor appetite, abd pain Signs/Symptoms: PO intake 45-75% 1. Problem Problem altered nutrition related labs Etiology hx of DM Signs/Symptoms: glucose 137-176, A1c 8.1, Malnutrition Alert Is there a minimum of two criteria No selected? Query Text:Check all the applicable criteria. A minimum of two criteria are recommended for diagnosis of either severe or non-severe malnutrition. Malnutrition Related to Morbid Obesity Malnutrition related to morbid obesity No Intervention/Recommendation Comments 1. Continue with CCHO 60gm and 2g Na diet as ordered. 2. Consider adding Carlos BID to help with wound healing. 3. Monitor PO intake, wt, GI function and labs and skin integrity 4. F/U as moderate risk in 3-5 days, 07/31-08/02, PO check 07/30 Expected Outcomes/Goals Expected Outcomes/Goals 1. PO intake to meet at least 75% of nutritional needs. 2. Wt stability, skin to remain intact, labs to approach WNL. 1. Continue with current diet as ordered. 2. Monitor PO intake, wt, labs and skin integrity 3. F/U as
--- NOTE | 2018-08-17 23:10 | Discharge Summary ---
DATE OF DISCHARGE: HOSPITAL COURSE: The patient was admitted on 07/25/2018 and the patient was discharged on 08/03/2018 back to [facility], which is called [facility] now. The patient is very well known to me. The patient is known to have a history of multiple problems, history of bilateral above-knee amputations, and a history of colostomy. The patient has hypertension, diabetes, and chronic pain syndrome, who came in because of leakage around the colostomy. The patient was admitted and the patient also had a hernia. The patient had hernia repair done by Dr. Stoll and the patient improved. The patient was in stable condition and was discharged back to [facility] on 08/03/2018, in stable condition. I will follow the patient there. CONDITION AT TIME OF DISCHARGE: Stable. JOB# [id number]
== END 2018-08-03 18:00 | DRG 353 ==
LOC: ER 23:20 → MSI 07-25 02:00 → ICU 07-31 12:51 → MSI 08-01 13:31
PROVIDERS: ADMIT Internal Medicine; ATTEND Internal Medicine
PROC: 0WQF0ZZ Repair Abdominal Wall, Open Approach (ICD-10-PCS; principal; 2018-07-31)
PROC: 0QB60ZZ Excision of Right Upper Femur, Open Approach (ICD-10-PCS; 2018-07-31)
DX: K94.01 Colostomy hemorrhage (principal); L89.214 Pressure ulcer of right hip, stage 4; K92.2 Gastrointestinal hemorrhage, unspecified; N39.0 Urinary tract infection, site not specified; K43.6 Other and unspecified ventral hernia with obstruction, without gangrene; R65.10 Systemic inflammatory response syndrome (SIRS) of non-infectious origin without acute organ dysfunction; M86.8X8 Other osteomyelitis, other site; E11.69 Type 2 diabetes mellitus with other specified complication; K94.03 Colostomy malfunction; Y83.3 Surgical operation with formation of external stoma as the cause of abnormal reaction of the patient, or of later complication, without mention of misadventure at the time of the procedure; F41.9 Anxiety disorder, unspecified; H54.8 Legal blindness, as defined in USA; Y92.89 Other specified places as the place of occurrence of the external cause; E11.51 Type 2 diabetes mellitus with diabetic peripheral angiopathy without gangrene; I10 Essential (primary) hypertension; G89.4 Chronic pain syndrome; F17.210 Nicotine dependence, cigarettes, uncomplicated; B95.1 Streptococcus, group B, as the cause of diseases classified elsewhere; F39 Unspecified mood [affective] disorder; Z88.8 Allergy status to other drugs, medicaments and biological substances; Z91.018 Allergy to other foods; Z89.612 Acquired absence of left leg above knee; Z89.611 Acquired absence of right leg above knee; Z79.4 Long term (current) use of insulin
CPT/HCPCS: 36415-UA; 71045-TC; 80048-TC; 80053-TC; 81001-TC; 82150-TC; 82270-TC; 82948-90; 83036-90; 83605; 83690-TC; 85007-TC; 85025-TC; 85610-TC; 86850-TC; 86900-TC; 86901-TC; 87086-90; 93005; 96372; J1170; J1815; J1956; J2405; J2704; J2710; J3010; V2790; X5716; X6024; X6258; Z7610

== ENCOUNTER 2018-08-24 13:24 | Inpatient (IN) | payer MEDICARE, MEDICAID ==
[2018-08-24] MEDS ORDERED: Clindamycin 600mg/50mL 600 MG/50 ML BAG IV ONE (14:00)
[2018-08-24] MEDS ORDERED: ceFAZolin 1 GM in Sodium Chloride 0.9% 50 ML IV ONE (14:00)
[2018-08-24] MEDS ORDERED: metroNIDAZOLE 500mg/NS 100mL 500 MG/100 ML BAG IV ONE ×2 (14:00→21:16)
[2018-08-24 14:20] LABS: % BASOPHILS 0.4 % (0.0-2.0); % EOSINOPHILS 2.8 % (0.0-5.0); % LYMPHOCYTES 21.2 % (20.0-50.0); % MONOCYTES 8.9 % (2.0-10.0); % NEUTROPHILS 66.7 % (40.0-80.0); EOSINOPHILE ABSOLUTE 0.3 Th/cmm (0.1-0.4); HEMATOCRIT 44.2 % (41.0-60); HEMOGLOBIN 14.1 gm/dL (12-16); LYMPHOCYTE ABSOLUTE 2.2 Th/cmm (1.5-3.0); MEAN CELL VOLUME 84.8 fl (80-99); MEAN CORPUSCULAR HEMOGLOBIN 27.2 pg (26.0-30.0); MEAN PLATELET VOLUME 7.5 fl; MONOCYTE ABSOLUTE 0.9 Th/cmm (0.3-1.0); NEUTROPHILE ABSOLUTE 6.9 Th/cmm (1.8-8.0); PLATELET COUNT 345 Th/cmm (150-400); RED BLOOD COUNT 5.21 Mil/cmm (4.30-5.70); RED CELL DISTRIBUTION WIDTH 15.2 % (11.5-20.0); WHITE BLOOD COUNT 10.3 Th/cmm (4.8-10.8)
[2018-08-24 14:43] LABS: ALBUMIN 3.5 gm/dL (4.2-5.5); ALKALINE PHOSPHATASE 82 U/L (34-104); ANION GAP 9.8 (7.0-16.0); BILIRUBIN,TOTAL 0.3 mg/dL (0.3-1.0); BUN - UREA NITROGEN 15 mg/dL (7-25); CALCIUM SERUM 9.3 mg/dL (8.6-10.3); CARBON DIOXIDE 26.4 mEq/L (21.0-31.0); CHLORIDE 102 mEq/L (98-107); CREATININE - SERUM 0.7 mg/dL (0.7-1.3); GFR AFRICAN-AMERICAN > 60.0 ml/min (>90); GFR NON AFRICAN-AMERICAN > 60.0 ml/min; GLUCOSE 221 mg/dL (70-105); MAGNESIUM 2.1 mg/dL (1.9-2.7); PHOSPHOROUS 3.3 mg/dL (2.5-5.0); POTASSIUM SERUM 4.2 mEq/L (3.5-5.1); SGOT 18 U/L (13-39); SGPT/ALT 18 U/L (7-52); SODIUM SERUM 134 mEq/L (136-145); TOTAL PROTEIN,SERUM 6.9 gm/dL (6.0-8.3)
--- NOTE | 2018-08-24 15:17 | ED Physician Chart ---
ED Chief Complaint/HPI - Patient Information Date Seen:: 08/24/18 Time Seen:: 13:24 Chief Complaint:: infected abdominal wound History of Present Illness:: infected abdominal wound to the right of the diverting colostomy site. Allergies:: Allergies Allergy/AdvReac Type Severity Reaction Status Date / Time permethrin [From Elimite] Allergy Verified 08/24/18 13:38 mushroom AdvReac Verified 08/24/18 13:38 strawberry AdvReac Verified 08/24/18 13:38 Vitals:: Vital Signs - 8 hr 08/24/18 13:24 Temp 98.1 F HR 98 RR 16 BP 114/72 O2 Sat % 95 Historian:: Patient, EMS Review:: Nurse's Note Reviewed, Transfer documents Reviewed ED Review of Systems - Review of Systems General/Constitutional: No fever, No chills, No weight loss, No weakness, No diaphoresis, No edema, No loss of appetite Skin: Other (abdominal wound to the right of the colostomy site.) Head: No headache, No light-headedness Eyes: No loss of vision, No pain, No diplopia ENT: No earache, No nasal drainage, No sore throat, No tinnitus Neck: No neck pain, No swelling, No thyromegaly, No stiffness, No mass noted Cardio Vascular: No chest pain, No palpitations, No PND, No orthopnea, No edema Pulmonary: No SOB, No cough, No sputum, No wheezing GI: No nausea, No vomiting, No diarrhea, No pain, No melena, No hematochezia, No constipation, No hematemesis G/U: No dysuria, No frequency, No hematuria Musculoskeletal: No bone or joint pain, No back pain, No muscle pain Endocrine: No polyuria, No polydipsia Psychiatric: Prior psych history, Depression, Anxiety, No suicidal ideation, No homicidal ideation, No auditory hallucination, No visual hallucination Hematopoietic: No bruising, No lymphadenopathy Allergic/Immuno: No urticaria, No angioedema Neurological: No syncope, No focal symptoms, No weakness, No paresthesia, No headache, No seizure, No dizziness, No confusion, No vertigo ED Past Medical History - Past Medical History Obtainable: Yes Past Medical History: HTN, DM, Asthma/COPD, Dyslipidemia, Other (blindness; GI hemorrhage) Psychiatricy History: Depression, Schizophrenia (anxiety; schizoaffective disorder; chronic pain syndrome), Other Family Medical History - Family Member Mother History Unknown: Yes Ethnicity: Living Status: Hx Family COPD: Yes ED Physical Exam - Physical Examination General/Constitutional: Awake, Alert, GCS 15 Other Gen/Cons comments:: Chronically ill appearing. Head: Atraumatic Eyes: Lids, conjuctiva normal Other Skin comments:: abdominal wall dehiscence with a wound to the right of the colostomy site. Two ischial decubitii present. The deepest of the decubitii is present on the right side which is down to bone. The one on the left is not as deep at all. Both of these decubitii were cultured as well as the abdominal wound. ENMT: External ears, nose nl Neck: Nontender, No nuchal rigidity Respiratory: Nl effort/Exclusion Other Respiratory comments:: decreased breath sounds at bases. Cardio Vascular: RRR GI: No tenderness/rebounding/guarding, No organomegaly, Nondistended Other GI comments:: colostomy site with bag in place. There is a large wound present to the right of the colostomy site with purulence present in it and specks of stool present in it as well. : No CVA tenderness Extremities: No tenderness or effusion, Full ROM, normal strength in all extremities, No edema, Normal digits & nails Other Extremities comments:: Bilateral above knee amputation sites. Neuro/Psych: Alert/oriented ED Labs/Radiology/EKG Results - Lab Results Results: Laboratory Tests 08/24/18 08/24/18 08/24/18 14:10 14:10 14:10 WBC 10.3 RBC 5.21 Hgb 14.1 Hct 44.2 MCV 84.8 MCH 27.2 MCHC Differential 32.0 RDW 15.2 Plt Count 345 MPV 7.5 Neutrophils % 66.7 Lymphocytes % 21.2 Monocytes % 8.9 Eosinophils % 2.8 Basophils % 0.4 Sodium 134 L Potassium 4.2 Chloride 102 Carbon Dioxide 26.4 Anion Gap 9.8 BUN 15 Creatinine 0.7 Est GFR ( Amer) > 60.0 Est GFR (Non-Af Amer) > 60.0 BUN/Creatinine Ratio 21.4 Glucose 221 H Whole Bld Lactic Acid 1.58 Calcium 9.3 Phosphorus 3.3 Magnesium 2.1 Total Bilirubin 0.3 AST 18 ALT 18 Alkaline Phosphatase 82 Total Protein 6.9 Albumin 3.5 L Globulin 3.4 Albumin/Globulin Ratio 1.0 ED Assessment - Assessment General Assessment: spoke with Dr. Kraft about admitting this patient at 3:15 p.m. ED Septic Shock - . Is Septic Shock (SBP<90, OR Lactate>4 mmol\L) present?: No - <6hrs of presentation: Vital Signs: Vital Signs - 8 hr 08/24/18 13:24 Temp 98.1 F HR 98 RR 16 BP 114/72 O2 Sat % 95 ED Reassessment (Disposition) - Reassessment Reassessment Condition:: Unchanged - Diagnosis Diagnosis:: Infected abdominal wound s/p dehiscence from colostomy site Diverting colostomy Bilateral ischial decubitii Diabetes mellitus COPD HTN schizophrenia schizoaffetive disorder anxiety depression chronic pain syndrome blindness - Patient Disposition Discharge/Transfer:: Acute Care w/in this hosp Accepting Physician:: Dr. Kraft Time Called:: 15:15 Time Responded:: 15:15 Admitted to:: Med/Surg Condition at Disposition:: Stable, Unchanged
[2018-08-24] MEDS ORDERED: HYDROmorphone 2 mg/mL 1mL Vial IVP ONE (15:20)
[2018-08-24] MEDS ORDERED: HYDROmorphone 2 mg/mL 1mL Vial ONE (15:21)
[2018-08-24] MEDS ORDERED: Clindamycin 150 mg/mL 4mL Vial ONE (15:32)
[2018-08-24] MEDS ORDERED: HYDROmorphone 2 mg/mL 1mL Vial IVP SCH (16:05)
[2018-08-24] MEDS ORDERED: Sodium Chloride 0.9% 1,000 ML IV SCH (16:05)
[2018-08-24] MEDS: D5-0.45NS 1,000 ML IV SCH (17:38)
[2018-08-24] MEDS: INSULIN ASPART SLIDING SCALE 100 UNITS/ML UNIT SUBQ SCH (17:47)
[2018-08-24] MEDS ORDERED: metroNIDAZOLE 500mg/NS 100mL 500 MG/100 ML BAG IV SCH (18:00)
[2018-08-24] MEDS: HYDROmorphone 2 mg/mL 1mL Vial IVP PRN (20:16)
[2018-08-24] MEDS: metroNIDAZOLE 500 mg/100 mL Premix Bag IV SCH (21:25)
[2018-08-24] MEDS: ceFAZolin 1 GM in Sodium Chloride 0.9% 50 ML IV SCH (22:35)
[2018-08-24] MEDS: Clindamycin 600mg/50mL 600 MG/50 ML BAG IV SCH (23:13)
[2018-08-25] MEDS: HYDROmorphone 2 mg/mL 1mL Vial IVP PRN ×3 (00:17→08:25)
[2018-08-25] MEDS: INSULIN ASPART SLIDING SCALE 100 UNITS/ML UNIT SUBQ SCH ×3 (00:51→12:45)
[2018-08-25] MEDS ORDERED: metroNIDAZOLE 500mg/NS 100mL 500 MG/100 ML BAG IV ONE (02:47)
[2018-08-25] MEDS: metroNIDAZOLE 500 mg/100 mL Premix Bag IV SCH ×2 (02:51→10:31)
[2018-08-25] MEDS: ceFAZolin 1 GM in Sodium Chloride 0.9% 50 ML IV SCH (04:12)
[2018-08-25] MEDS: Clindamycin 600mg/50mL 600 MG/50 ML BAG IV SCH (05:00)
--- NOTE | 2018-08-25 10:04 | Consultation ---
Consult Note - Consult Note Service Date: 08/25/18 Referring Physician: Yunier Kraft Consult Note: PHYSICIAN Consultation Note: Date of Admission: 08/24/18 Purpose of Consultation: Once patient's abdominal wall. Chief Complaint: Patient CHAPINCITO MCGEE was admitted to [facility] Medical/ Surgical Unit I with SURGICAL WOUND DIHISCENCE. History of Present Illness: 57 year female with a past medical history of bilateral above-knee amputation, colostomy, hypertension, diabetes mellitus type 2, chronic pain syndrome brought in from senior living for dehiscence of the wound next to colostomy site. On initial evaluation, his temperature was 98.1F and WBC count was 16, 000. Sepsis workup was performed and Clindamycin and cefazolin was started. ID consult was called for further antibiotic management. Meanwhile, his leukocytosis has improved. Past Medical History: bilateral above-knee amputation, colostomy, hypertension, diabetes mellitus type 2, chronic pain syndrome Allergies Allergy/AdvReac Type Severity Reaction Status Date / Time permethrin [From Elimite] Allergy Verified 08/24/18 13:38 mushroom AdvReac Verified 08/24/18 13:38 strawberry AdvReac Verified 08/24/18 13:38 Vital Signs Temp 95.9 F 08/25/18 08:26 Pulse 84 08/25/18 08:26 Resp 17 08/25/18 08:26 BP 149/88 08/25/18 08:26 Pulse Ox 93 08/25/18 08:26 Intake & Output 08/24/18 08/25/18 08/25/18 18:59 06:59 18:59 Intake Total 150 150 Balance 150 150 Weight (lbs) 71.668 kg 71.804 kg Intake: Intake, IV Amount 150 ceFAZolin 1 gm In Sodium 50 Chloride 0.9% 50 ml @ 100 mls/hr IV Q8HR [facility] Rx#: [id number] metroNIDAZOLE 500mg/NS 100 100mL 500 mg In 100 ml @ 100 mls/hr IV Q6H [facility] Rx# :[id number] Oral 150 Other: # Voids 2 Stool Characteristics Liquid Weight Source Bedscale Bedscale Laboratory Results - last 24 hr 08/24/18 08/24/18 08/24/18 14:10 14:10 14:10 WBC 10.3 RBC 5.21 Hgb 14.1 Hct 44.2 MCV 84.8 MCH 27.2 MCHC Differential 32.0 RDW 15.2 Plt Count 345 MPV 7.5 Neutrophils % 66.7 Lymphocytes % 21.2 Monocytes % 8.9 Eosinophils % 2.8 Basophils % 0.4 Sodium 134 L Potassium 4.2 Chloride 102 Carbon Dioxide 26.4 Anion Gap 9.8 BUN 15 Creatinine 0.7 Est GFR ( Amer) > 60.0 Est GFR (Non-Af Amer) > 60.0 BUN/Creatinine Ratio 21.4 Glucose 221 H POC Glucose Whole Bld Lactic Acid 1.58 Calcium 9.3 Phosphorus 3.3 Magnesium 2.1 Total Bilirubin 0.3 AST 18 ALT 18 Alkaline Phosphatase 82 Total Protein 6.9 Albumin 3.5 L Globulin 3.4 Albumin/Globulin Ratio 1.0 08/24/18 17:42 WBC RBC Hgb Hct MCV MCH MCHC Differential RDW Plt Count MPV Neutrophils % Lymphocytes % Monocytes % Eosinophils % Basophils % Sodium Potassium Chloride Carbon Dioxide Anion Gap BUN Creatinine Est GFR ( Amer) Est GFR (Non-Af Amer) BUN/Creatinine Ratio Glucose POC Glucose 210 H Whole Bld Lactic Acid Calcium Phosphorus Magnesium Total Bilirubin AST ALT Alkaline Phosphatase Total Protein Albumin Globulin Albumin/Globulin Ratio Home Medication Medication Instructions Recorded Type Acetaminophen [Tylenol] 650 mg PO Q4HR PRN 10/06/17 History Amitriptyline HCl [Amitriptyline 50 mg PO HS 10/06/17 History HCl*] Ascorbic Acid [Vitamin C] 500 mg PO DAILY 10/06/17 History Aspirin [Aspirin Chewable] 81 mg PO DAILY 10/06/17 History Baclofen [Baclofen*] 10 mg PO Q8H 10/06/17 History Cholecalciferol (Vitamin D3) 1 cap PO DAILY 10/06/17 History [Vitamin D3] Docusate Sodium [Colace] 100 mg PO DAILY 10/06/17 History Duloxetine HCl [Cymbalta] 20 mg PO DAILY 10/06/17 History Lisinopril [Zestril*] 10 mg PO DAILY 10/06/17 History Magnesium Hydroxide [Milk of 30 ml PO Q24H PRN 10/06/17 History Magnesia] Multivit-Min/Iron Fum/Folic AC 1 tab PO DAILY 10/06/17 History [Vuggi-Fezpamp-Fidbqbnx Tablet] Pregabalin [Lyrica] 150 mg PO BID 10/06/17 History Acetaminophen [Tylenol Extra 1,000 mg PO Q4HR PRN 05/20/18 History Strength] Acetaminophen [Tylenol] 650 mg PO DAILY 08/24/18 History HYDROmorphone [Dilaudid] 1.5 ml IM Q6H PRN 08/24/18 History Insulin Aspart Sliding Scale 0 units SUBQ ACHS 08/24/18 History [NovoLOG INSULIN SLIDING SCALE] Current Medications Generic Name Dose Route Start Last Admin Trade Name Freq PRN Reason Stop Dose Admin Hydromorphone HCl 1 mg 08/24/18 17:25 08/25/18 08:25 Dilaudid IVP 10/23/18 16:04 1 mg Q4H PRN Administration Severe Pain Cefazolin Sodium 1 gm/ Sodium 50 mls @ 100 mls/hr 08/24/18 22:00 08/25/18 04: 12 Chloride IV 10/23/18 21:59 100 mls/hr Q8HR [facility] Administration Clindamycin Phosphate 600 mg in 50 mls @ 100 mls/hr 08/24/18 21:00 08/25/18 05:00 Cleocin Pb IV 10/23/18 20:59 Not Given Q8HR [facility] Dextrose/Sodium Chloride 1,000 mls @ 50 mls/hr 08/24/18 17:30 08/24/18 17:38 D5-0.45ns IV 10/23/18 17:29 50 mls/hr .Q20H [facility] Administration Metronidazole 500 mg in 100 mls @ 100 mls/hr 08/24/18 21:00 08/25/18 02:51 Flagyl IV 10/23/18 20:59 100 mls/hr Q6H [facility] Administration Insulin Aspart 0 units 08/24/18 18:00 08/25/18 07:58 Novolog Insulin Sliding Scale SUBQ 10/23/18 17:59 Not Given Q6HR [facility] Protocol Ondansetron HCl 4 mg 08/24/18 17:26 Zofran IV 10/23/18 17:24 Q6H PRN Nausea / Vomiting Review of Systems: A 12 point ROS was reviewed with the pertinent positive and negatives noted in the HPI. Social History Smoking Status Unknown if ever smoked Family Medical History Family Medical History Start: 08/24/18 16: 29 Freq: ONCE Status: Active Protocol: Document 08/24/18 17:29 JOO (Rec: 08/24/18 17:29 JOO [email or web address] ) Family Medical History Mother History Unknown Yes Physical Exam: General: Comfortable, not in acute distress. Well-nourished well-developed. HEENT: Head: Normocytic, atraumatic. Cardiac: Moist, pink tongue. Eyes: Pallor is present. No icterus. Pupil PERRLA EOMI. Neck: Supple, no JVD. No use of accessory neck muscles. No thyromegaly. Cardio: S1 and S2 within normal limits regular rhythm no murmur no gallop. Respiratory: CTAP Abdominal: soft nontender nondistended bowel sounds present. Colostomy left lower quadrant. There is a wound and abdominal wall, along the surgical scar, in suprapubic area. There is some stool soiling of the wound. There is no erythema or discharge. Genital/Urinary: Deferred Extremities: Bilateral BKA. Neurological: Alert, awake, oriented 3 Assessment: 1. Abdominal wall wound dehiscence., Infected wound. 2. Status post colostomy. 3. Bilateral BKA 4. Diabetes mellitus type 2. 5. Hypertension. 6. Chronic pain syndrome. Plan: Change antibiotic to Rocephin and Flagyl. Surgical consult, with Dr. Waters. Thank you, Dr Tam for involving me in taking care of this patient. Signed, Rajan Stoll M.D. [phone]
--- NOTE | 2018-08-25 10:14 | Consultation ---
Consult Note - Consult Note Service Date: 08/25/18 Referring Physician: Yunier Kraft Consult Note: PHYSICIAN Consultation Note: Date of Admission: 08/24/18 Purpose of Consultation: Chief Complaint: History of Present Illness: Patient CHAPINCITO MCGEE was admitted to [facility] with SURGICAL WOUND DIHISCENCE. Past Medical History: Allergies Allergy/AdvReac Type Severity Reaction Status Date / Time permethrin [From Elimite] Allergy Verified 08/24/18 13:38 mushroom AdvReac Verified 08/24/18 13:38 strawberry AdvReac Verified 08/24/18 13:38 Vital Signs Temp 95.9 F 08/25/18 08:26 Pulse 84 08/25/18 08:26 Resp 17 08/25/18 08:26 BP 149/88 08/25/18 08:26 Pulse Ox 93 08/25/18 08:26 Intake & Output 08/24/18 08/25/18 08/25/18 18:59 06:59 18:59 Intake Total 150 150 Balance 150 150 Weight (lbs) 71.668 kg 71.804 kg Intake: Intake, IV Amount 150 ceFAZolin 1 gm In Sodium 50 Chloride 0.9% 50 ml @ 100 mls/hr IV Q8HR [facility] Rx#: [id number] metroNIDAZOLE 500mg/NS 100 100mL 500 mg In 100 ml @ 100 mls/hr IV Q6H [facility] Rx# :[id number] Oral 150 Other: # Voids 2 Stool Characteristics Liquid Weight Source Bedscale Bedscale Laboratory Results - last 24 hr 08/24/18 08/24/18 08/24/18 14:10 14:10 14:10 WBC 10.3 RBC 5.21 Hgb 14.1 Hct 44.2 MCV 84.8 MCH 27.2 MCHC Differential 32.0 RDW 15.2 Plt Count 345 MPV 7.5 Neutrophils % 66.7 Lymphocytes % 21.2 Monocytes % 8.9 Eosinophils % 2.8 Basophils % 0.4 Sodium 134 L Potassium 4.2 Chloride 102 Carbon Dioxide 26.4 Anion Gap 9.8 BUN 15 Creatinine 0.7 Est GFR ( Amer) > 60.0 Est GFR (Non-Af Amer) > 60.0 BUN/Creatinine Ratio 21.4 Glucose 221 H POC Glucose Whole Bld Lactic Acid 1.58 Calcium 9.3 Phosphorus 3.3 Magnesium 2.1 Total Bilirubin 0.3 AST 18 ALT 18 Alkaline Phosphatase 82 Total Protein 6.9 Albumin 3.5 L Globulin 3.4 Albumin/Globulin Ratio 1.0 08/24/18 17:42 WBC RBC Hgb Hct MCV MCH MCHC Differential RDW Plt Count MPV Neutrophils % Lymphocytes % Monocytes % Eosinophils % Basophils % Sodium Potassium Chloride Carbon Dioxide Anion Gap BUN Creatinine Est GFR ( Amer) Est GFR (Non-Af Amer) BUN/Creatinine Ratio Glucose POC Glucose 210 H Whole Bld Lactic Acid Calcium Phosphorus Magnesium Total Bilirubin AST ALT Alkaline Phosphatase Total Protein Albumin Globulin Albumin/Globulin Ratio Home Medication Medication Instructions Recorded Type Acetaminophen [Tylenol] 650 mg PO Q4HR PRN 10/06/17 History Amitriptyline HCl [Amitriptyline 50 mg PO HS 10/06/17 History HCl*] Ascorbic Acid [Vitamin C] 500 mg PO DAILY 10/06/17 History Aspirin [Aspirin Chewable] 81 mg PO DAILY 10/06/17 History Baclofen [Baclofen*] 10 mg PO Q8H 10/06/17 History Cholecalciferol (Vitamin D3) 1 cap PO DAILY 10/06/17 History [Vitamin D3] Docusate Sodium [Colace] 100 mg PO DAILY 10/06/17 History Duloxetine HCl [Cymbalta] 20 mg PO DAILY 10/06/17 History Lisinopril [Zestril*] 10 mg PO DAILY 10/06/17 History Magnesium Hydroxide [Milk of 30 ml PO Q24H PRN 10/06/17 History Magnesia] Multivit-Min/Iron Fum/Folic AC 1 tab PO DAILY 10/06/17 History [Wtmht-Iwkcovk-Xppnzgvr Tablet] Pregabalin [Lyrica] 150 mg PO BID 10/06/17 History Acetaminophen [Tylenol Extra 1,000 mg PO Q4HR PRN 05/20/18 History Strength] Acetaminophen [Tylenol] 650 mg PO DAILY 08/24/18 History HYDROmorphone [Dilaudid] 1.5 ml IM Q6H PRN 08/24/18 History Insulin Aspart Sliding Scale 0 units SUBQ ACHS 08/24/18 History [NovoLOG INSULIN SLIDING SCALE] Current Medications Generic Name Dose Route Start Last Admin Trade Name Freq PRN Reason Stop Dose Admin Hydromorphone HCl 1 mg 08/24/18 17:25 08/25/18 08:25 Dilaudid IVP 10/23/18 16:04 1 mg Q4H PRN Administration Severe Pain Cefazolin Sodium 1 gm/ Sodium 50 mls @ 100 mls/hr 08/24/18 22:00 08/25/18 04: 12 Chloride IV 10/23/18 21:59 100 mls/hr Q8HR [facility] Administration Clindamycin Phosphate 600 mg in 50 mls @ 100 mls/hr 08/24/18 21:00 08/25/18 05:00 Cleocin Pb IV 10/23/18 20:59 Not Given Q8HR [facility] Dextrose/Sodium Chloride 1,000 mls @ 50 mls/hr 08/24/18 17:30 08/24/18 17:38 D5-0.45ns IV 10/23/18 17:29 50 mls/hr .Q20H [facility] Administration Metronidazole 500 mg in 100 mls @ 100 mls/hr 08/24/18 21:00 08/25/18 02:51 Flagyl IV 10/23/18 20:59 100 mls/hr Q6H [facility] Administration Insulin Aspart 0 units 08/24/18 18:00 08/25/18 07:58 Novolog Insulin Sliding Scale SUBQ 10/23/18 17:59 Not Given Q6HR [facility] Protocol Ondansetron HCl 4 mg 08/24/18 17:26 Zofran IV 10/23/18 17:24 Q6H PRN Nausea / Vomiting Review of Systems: A 12 point ROS was reviewed with the pertinent positive and negatives noted in the HPI. Social History Smoking Status Unknown if ever smoked Family Medical History Family Medical History Start: 08/24/18 16: 29 Freq: ONCE Status: Active Protocol: Document 08/24/18 17:29 JOO (Rec: 08/24/18 17:29 JOO [email or web address] ) Family Medical History Mother History Unknown Yes Physical Exam: General: HEENT: Neck: Cardio: Respiratory: Abdominal: Genital/Urinary: Extremities: Neurological: Assessment: Plan: Signed, Rajan Stoll M.D. [id number]
[2018-08-25] MEDS ORDERED: Diatrizoate Meglumine/Diatri 30 mL Sol PO ONE (11:55)
[2018-08-25] MEDS ORDERED: IOHEXOL 300mgI/mL 100 ML VIAL PO ONE (11:55)
--- NOTE | 2018-08-25 11:57 | General Progress Note ---
Subjective - Review of Systems Service Date: 08/25/18 Events since last encounter: has brownish drainae from midline incision had parastomal hernia repair 1 month ago Plan: CT abdomen and pelvis to rule out entero-cutaneous fistula Objective - Results Result Diagrams: 08/24/18 14:10 08/24/18 14:10 Recent Labs: Laboratory Last Values WBC 10.3 Th/cmm (4.8-10.8) 08/24/18 14:10 RBC 5.21 Mil/cmm (4.30-5.70) 08/24/18 14:10 Hgb 14.1 gm/dL (12-16) 08/24/18 14:10 Hct 44.2 % (41.0-60) 08/24/18 14:10 MCV 84.8 fl (80-99) 08/24/18 14:10 MCH 27.2 pg (26.0-30.0) 08/24/18 14:10 MCHC Differential 32.0 pg (28.0-36.0) 08/24/18 14:10 RDW 15.2 % (11.5-20.0) 08/24/18 14:10 Plt Count 345 Th/cmm (150-400) 08/24/18 14:10 MPV 7.5 fl 08/24/18 14:10 Neutrophils % 66.7 % (40.0-80.0) 08/24/18 14:10 Lymphocytes % 21.2 % (20.0-50.0) 08/24/18 14:10 Monocytes % 8.9 % (2.0-10.0) 08/24/18 14:10 Eosinophils % 2.8 % (0.0-5.0) 08/24/18 14:10 Basophils % 0.4 % (0.0-2.0) 08/24/18 14:10 Sodium 134 mEq/L (136-145) L 08/24/18 14:10 Potassium 4.2 mEq/L (3.5-5.1) 08/24/18 14:10 Chloride 102 mEq/L (98-107) 08/24/18 14:10 Carbon Dioxide 26.4 mEq/L (21.0-31.0) 08/24/18 14:10 Anion Gap 9.8 (7.0-16.0) 08/24/18 14:10 BUN 15 mg/dL (7-25) 08/24/18 14:10 Creatinine 0.7 mg/dL (0.7-1.3) 08/24/18 14:10 Est GFR ( Amer) > 60.0 ml/min (>90) 08/24/18 14:10 Est GFR (Non-Af Amer) > 60.0 ml/min 08/24/18 14:10 BUN/Creatinine Ratio 21.4 08/24/18 14:10 Glucose 221 mg/dL (70-105) H 08/24/18 14:10 POC Glucose 210 MG/DL (70 - 105) H 08/24/18 17:42 Whole Bld Lactic Acid 1.58 mmol/L (0.60-1.99) 08/24/18 14:10 Calcium 9.3 mg/dL (8.6-10.3) 08/24/18 14:10 Phosphorus 3.3 mg/dL (2.5-5.0) 08/24/18 14:10 Magnesium 2.1 mg/dL (1.9-2.7) 08/24/18 14:10 Total Bilirubin 0.3 mg/dL (0.3-1.0) 08/24/18 14:10 AST 18 U/L (13-39) 08/24/18 14:10 ALT 18 U/L (7-52) 08/24/18 14:10 Alkaline Phosphatase 82 U/L (34-104) 08/24/18 14:10 Total Protein 6.9 gm/dL (6.0-8.3) 08/24/18 14:10 Albumin 3.5 gm/dL (4.2-5.5) L 08/24/18 14:10 Globulin 3.4 gm/dL 08/24/18 14:10 Albumin/Globulin Ratio 1.0 (1.0-1.8) 08/24/18 14:10 - Physical Exam Vitals and I&O: Vital Signs Temp 96.7 F 08/25/18 11:42 Pulse 80 08/25/18 11:42 Resp 18 08/25/18 11:42 BP 138/76 08/25/18 11:42 Pulse Ox 95 08/25/18 11:42 Intake & Output 1008/25/18 08/25/18 18:59 06:59 18:59 Intake Total 150 250 Balance 150 250 Weight (lbs) 71.668 kg 71.804 kg Intake: Intake, IV Amount 250 ceFAZolin 1 gm In Sodium 50 Chloride 0.9% 50 ml @ 100 mls/hr IV Q8HR [facility] Rx#: [id number] metroNIDAZOLE 500mg/NS 200 100mL 500 mg In 100 ml @ 100 mls/hr IV Q6H [facility] Rx# :[id number] Oral 150 Other: # Voids 2 Stool Characteristics Liquid Weight Source Bedscale Bedscale Active Medications: Current Medications Hydromorphone HCl (Dilaudid) 1 mg IVP Q4H PRN PRN Reason: Severe Pain Stop: 10/23/18 16:04 Dextrose/Sodium Chloride (D5-0.45ns) 1,000 mls @ 50 mls/hr IV .Q20H [facility] Stop: 10/23/18 17:29 Last Admin: 08/24/18 17:38 Dose: 50 mls/hr Ceftriaxone Sodium 1 gm/ (Sodium Chloride) 50 mls @ 100 mls/hr IV Q24HR [facility] Stop: 10/24/18 12:59 Metronidazole (Flagyl) 500 mg in 100 mls @ 100 mls/hr IV Q12HR [facility] Stop: 10/24/18 20:59 Insulin Aspart (Novolog Insulin Sliding Scale) 0 units SUBQ Q6HR [facility]; Protocol Stop: 10/23/18 17:59 Last Admin: 08/25/18 07:58 Dose: Not Given Ondansetron HCl (Zofran) 4 mg IV Q6H PRN PRN Reason: Nausea / Vomiting Stop: 10/23/18 17:24 - Procedures Procedures: Procedures Procedure Code Date EXCISION OF RIGHT UPPER FEMUR, OPEN APPROACH [id number] 07/25/18 INSPECTION OF LOWER INTESTINAL TRACT, ENDO [id number] 05/20/18 REPAIR ABDOMINAL WALL, OPEN APPROACH [id number] 07/25/18
[2018-08-25] MEDS: HYDROmorphone 1 mg/mL 1mL Syr IVP PRN ×3 (12:18→20:30)
[2018-08-25] MEDS: cefTRIAXone 1 GM in Sodium Chloride 0.9% 50 ML IV SCH (12:25)
--- NOTE | 2018-08-25 14:45 | Diagnostic Imaging Report ---
CT abdomen and pelvis with IV and oral contrast Indication: open wound Midline abdomen brownish discharge, recent hernia surgery for parastomal hernia. Bilateral lower extremity amputation Comparison: CT abdomen and pelvis on 07/29/2018, Technique: Axial images were obtained from the lung bases to the bilateral proximal femurs with IV and oral contrast. Coronal reconstructions were made. total DLP: 599, CTDI 12.1 FINDINGS: Hypoventilatory and atelectatic changes of the lung bases are noted. No evidence of focal hepatic lesions. No focal splenic, pancreatic, or adrenal lesions. Nonspecific bilateral perinephric inflammatory changes are noted. No evidence of hydronephrosis. Multiple bilateral renal cysts are noted the largest within the right kidney measuring 4 cm. Bilateral renal calcifications are appear to be vascular. No hydronephrosis. Severely distended urinary bladder is noted. There is copious amount of stool throughout the colon with gas-filled loops of bowel. The appendix is not well-visualized. There is a narrow based ventral hernia seen located within the left rectus abdominis muscle with herniation of bowel loops. This has decreased in size since previous examination. There is also a defect seen along the midline anterior abdominal wall located adjacent to the umbilicus with diffuse air seen within this defect. Air filled cavity seen measuring 8.0 x 1.6 cm. Surrounding inflammatory changes are seen in this region. There is close apposition of bowel loops to the anterior peritoneum in this region. Extensive atherosclerotic vascular disease is noted. There is extensive soft plaque and thrombus formation seen extending from the infrarenal abdominal aorta without enhancement of the distal abdominal aorta and branches. Degenerative changes of the spine are noted. Small pocket of air is seen adjacent to the right greater ischial tuberosity with increased density of the right ischial tuberosity. IMPRESSION: Midline anterior abdominal wall defect with diffuse pockets of air. This is adjacent to the umbilicus. Please correlate clinically for recent surgery in this region. Surrounding inflammatory changes are also noted within this region. There may be packing material within this region. Please correlate clinically. Adjacent left sided ventral hernia/ versus ostomy located within the left rectus abdominis muscle with protrusion of bowel loops which has decreased in size since prior examination and is probably related to patient's parastomal hernia repair. Close apposition of bowel loops to the midline abdominal wall defect. A fistulous connection is considered less likely. Severe atherosclerosis with severe soft plaque formation and lack of flow and enhancement extending from the infrarenal aorta distally throughout the iliac branches. Note patient has bilateral lower extremity amputation. Please correlate with clinical history normal exams., If indicated Dedicated angiography may be obtained. Severely distended urinary bladder Small pocket of air seen along the right ischial tuberosity with increased density of the right ischial tuberosity which may be due to chronic osteomyelitis in this region. Renal cysts Please refer to above for details.
[2018-08-25] MEDS: D5-0.45NS 1,000 ML IV SCH (18:23)
[2018-08-25] MEDS: metroNIDAZOLE 500mg/NS 100mL 500 MG/100 ML BAG IV SCH (20:16)
[2018-08-26] MEDS: HYDROmorphone 1 mg/mL 1mL Syr IVP PRN ×6 (00:30→20:30)
[2018-08-26] MEDS: INSULIN ASPART SLIDING SCALE 100 UNITS/ML UNIT SUBQ SCH ×4 (00:37→17:09)
[2018-08-26] MEDS: Venelex 60gm Tube TP SCH (08:26)
[2018-08-26] MEDS: metroNIDAZOLE 500mg/NS 100mL 500 MG/100 ML BAG IV SCH ×2 (08:27→20:01)
[2018-08-26] MEDS: cefTRIAXone 1 GM in Sodium Chloride 0.9% 50 ML IV SCH (12:12)
--- NOTE | 2018-08-26 12:15 | General Progress Note ---
Subjective - Review of Systems Service Date: 08/26/18 Events since last encounter: CT scan noted, no fistula, has small hernia around stoma no drainage at midline start clear liquids Objective - Results Result Diagrams: 08/24/18 14:10 08/24/18 14:10 Recent Labs: Laboratory Last Values WBC 10.3 Th/cmm (4.8-10.8) 08/24/18 14:10 RBC 5.21 Mil/cmm (4.30-5.70) 08/24/18 14:10 Hgb 14.1 gm/dL (12-16) 08/24/18 14:10 Hct 44.2 % (41.0-60) 08/24/18 14:10 MCV 84.8 fl (80-99) 08/24/18 14:10 MCH 27.2 pg (26.0-30.0) 08/24/18 14:10 MCHC Differential 32.0 pg (28.0-36.0) 08/24/18 14:10 RDW 15.2 % (11.5-20.0) 08/24/18 14:10 Plt Count 345 Th/cmm (150-400) 08/24/18 14:10 MPV 7.5 fl 08/24/18 14:10 Neutrophils % 66.7 % (40.0-80.0) 08/24/18 14:10 Lymphocytes % 21.2 % (20.0-50.0) 08/24/18 14:10 Monocytes % 8.9 % (2.0-10.0) 08/24/18 14:10 Eosinophils % 2.8 % (0.0-5.0) 08/24/18 14:10 Basophils % 0.4 % (0.0-2.0) 08/24/18 14:10 Sodium 134 mEq/L (136-145) L 08/24/18 14:10 Potassium 4.2 mEq/L (3.5-5.1) 08/24/18 14:10 Chloride 102 mEq/L (98-107) 08/24/18 14:10 Carbon Dioxide 26.4 mEq/L (21.0-31.0) 08/24/18 14:10 Anion Gap 9.8 (7.0-16.0) 08/24/18 14:10 BUN 15 mg/dL (7-25) 08/24/18 14:10 Creatinine 0.7 mg/dL (0.7-1.3) 08/24/18 14:10 Est GFR ( Amer) > 60.0 ml/min (>90) 08/24/18 14:10 Est GFR (Non-Af Amer) > 60.0 ml/min 08/24/18 14:10 BUN/Creatinine Ratio 21.4 08/24/18 14:10 Glucose 221 mg/dL (70-105) H 08/24/18 14:10 POC Glucose 144 MG/DL (70 - 105) H 08/26/18 12:07 Whole Bld Lactic Acid 1.58 mmol/L (0.60-1.99) 08/24/18 14:10 Calcium 9.3 mg/dL (8.6-10.3) 08/24/18 14:10 Phosphorus 3.3 mg/dL (2.5-5.0) 08/24/18 14:10 Magnesium 2.1 mg/dL (1.9-2.7) 08/24/18 14:10 Total Bilirubin 0.3 mg/dL (0.3-1.0) 08/24/18 14:10 AST 18 U/L (13-39) 08/24/18 14:10 ALT 18 U/L (7-52) 08/24/18 14:10 Alkaline Phosphatase 82 U/L (34-104) 08/24/18 14:10 Total Protein 6.9 gm/dL (6.0-8.3) 08/24/18 14:10 Albumin 3.5 gm/dL (4.2-5.5) L 08/24/18 14:10 Globulin 3.4 gm/dL 08/24/18 14:10 Albumin/Globulin Ratio 1.0 (1.0-1.8) 08/24/18 14:10 - Physical Exam Vitals and I&O: Vital Signs Temp 97.2 F 08/26/18 11:50 Pulse 78 08/26/18 11:50 Resp 18 08/26/18 11:50 BP 131/72 08/26/18 11:50 Pulse Ox 96 08/26/18 11:50 Intake & Output 08/25/18 08/26/18 08/26/18 18:59 06:59 18:59 Intake Total 1050 100 Output Total 900 Balance 1050 -800 Weight (lbs) 70.08 kg Intake: Intake, IV Amount 1050 100 D5-0.45NS 1,000 ml @ 50 1000 mls/hr IV .Q20H [facility] Rx#: [id number] cefTRIAXone 1 gm In 50 Sodium Chloride 0.9% 50 ml @ 100 mls/hr IV Q24HR [facility] Rx#:[id number] metroNIDAZOLE 500mg/NS 100 100mL 500 mg In 100 ml @ 100 mls/hr IV Q12HR [facility] Rx#:[id number] Output: Urine 900 Other: # Bowel Movements 1 Stool Characteristics Liquid Liquid Liquid Weight Source Bedscale Active Medications: Current Medications [place] Oil/[place] Balsam/Trypsin (Venelex) 1 appl TP DAILY [facility] Stop: 10/25/18 08:59 Last Admin: 08/26/18 08:26 Dose: 1 appl Hydromorphone HCl (Dilaudid) 1 mg IVP Q4H PRN PRN Reason: Severe Pain Stop: 10/23/18 16:04 Last Admin: 08/26/18 08:31 Dose: 1 mg Dextrose/Sodium Chloride (D5-0.45ns) 1,000 mls @ 50 mls/hr IV .Q20H [facility] Stop: 10/23/18 17:29 Last Admin: 08/25/18 18:23 Dose: 50 mls/hr Ceftriaxone Sodium 1 gm/ (Sodium Chloride) 50 mls @ 100 mls/hr IV Q24HR [facility] Stop: 10/24/18 12:59 Last Admin: 08/26/18 12:12 Dose: 100 mls/hr Metronidazole (Flagyl) 500 mg in 100 mls @ 100 mls/hr IV Q12HR [facility] Stop: 10/24/18 20:59 Last Admin: 08/26/18 08:27 Dose: 100 mls/hr Insulin Aspart (Novolog Insulin Sliding Scale) 0 units SUBQ Q6HR [facility]; Protocol Stop: 10/23/18 17:59 Last Admin: 08/26/18 05:49 Dose: Not Given Ondansetron HCl (Zofran) 4 mg IV Q6H PRN PRN Reason: Nausea / Vomiting Stop: 10/23/18 17:24 - Procedures Procedures: Procedures Procedure Code Date EXCISION OF RIGHT UPPER FEMUR, OPEN APPROACH [id number] 07/25/18 INSPECTION OF LOWER INTESTINAL TRACT, ENDO [id number] 05/20/18 REPAIR ABDOMINAL WALL, OPEN APPROACH [id number] 07/25/18 Nutritional Asmnt/Malnutr-PDOC - Dietary Evaluation Malnutrition Findings (Please click <Entered> for more info): Nutritional Asmnt/Malnutrition Start: 08/25/18 12: 55 Text: Status: Complete Freq: Protocol: Document 08/25/18 12:55 KRISTI (Rec: 08/25/18 13:22 [facility] Nutritional Asmnt/Malnutrition Patient General Information Nutritional Screening High Risk Consult Diagnosis surgical wound dihiscence Pertinent Medical Hx/Surgical Hx bi AKA, HTN, colostomy, DM, chronic pain syndrom Subjective Information Consult received for glucose level higher than 180 at admission. Pt seen lying in bed at time of visit, refused to talk with RN. Pt stated " leave me alone". Pt was on CCHO 60gm diet at admission, now is on NPO. 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%), adj IBW 142lb, adj BMI 26.6 Current Diet Order/ Nutrition Support NPO Pertinent Medications D5-0.45ns, novolog Pertinent Labs 08/25 POC 151 08/24 Na 134, glucose 221, POC 210 Nutritional Hx/Data Height 1.83 m Height (Calculated Centimeters) 182.9 Current Weight (lbs) 71.668 kg Weight (Calculated Kilograms) 71.7 Weight (Calculated Grams) 05452.6 [place] Body Weight 142 Body Mass Index (BMI) 21.4 Weight Status Overweight GI Symptoms GI Symptoms None Last BM not indicated Difficult in: None Skin Integrity/Comment: decubitus ulcer to buttocks Estimated Nutritional Goals BEE in Kcals: Using Current wt Calories/Kcals/Kg 25-30 Kcals Calculated 3281-0637 Protein: Using Current wt Protein g/k-1.2 Protein Calculated 72-86 Fluid: ml 1800-2160ml (1ml/kcal) Nutritional Problem 2. Problem Problem increased nutrition needs Etiology impaired skin integrity Signs/Symptoms: decubitus ulcer to buttocks 1. Problem Problem altered nutrition related labs Etiology hx of DM Signs/Symptoms: glucose 221, POC 151-210 Malnutrition Alert Is there a minimum of two criteria No selected? Query Text:Check all the applicable criteria. A minimum of two criteria are recommended for diagnosis of either severe or non-severe malnutrition. Intervention/Recommendation Comments 1. Resume CCHO 60gm diet when medically appropriate. Will attampt to provide nutrition education when pt available. 2. Consider adding Carlos BID as needed after wound assessment. 3. Monitor PO intake, wt, labs and skin integrity 4. F/U as high risk in 2-3 days. 08/27-08/28 Expected Outcomes/Goals Expected Outcomes/Goals 1. PO intake to meet at least 75% of nutritional needs. 2. Wt stability, skin to remain intact, labs to approach WNL.
[2018-08-26] MEDS: D5-0.45NS 1,000 ML IV SCH (16:35)
--- NOTE | 2018-08-26 16:59 | General Progress Note ---
Objective - Results Result Diagrams: 08/24/18 14:10 08/24/18 14:10 Recent Labs: Laboratory Last Values WBC 10.3 Th/cmm (4.8-10.8) 08/24/18 14:10 RBC 5.21 Mil/cmm (4.30-5.70) 08/24/18 14:10 Hgb 14.1 gm/dL (12-16) 08/24/18 14:10 Hct 44.2 % (41.0-60) 08/24/18 14:10 MCV 84.8 fl (80-99) 08/24/18 14:10 MCH 27.2 pg (26.0-30.0) 08/24/18 14:10 MCHC Differential 32.0 pg (28.0-36.0) 08/24/18 14:10 RDW 15.2 % (11.5-20.0) 08/24/18 14:10 Plt Count 345 Th/cmm (150-400) 08/24/18 14:10 MPV 7.5 fl 08/24/18 14:10 Neutrophils % 66.7 % (40.0-80.0) 08/24/18 14:10 Lymphocytes % 21.2 % (20.0-50.0) 08/24/18 14:10 Monocytes % 8.9 % (2.0-10.0) 08/24/18 14:10 Eosinophils % 2.8 % (0.0-5.0) 08/24/18 14:10 Basophils % 0.4 % (0.0-2.0) 08/24/18 14:10 Sodium 134 mEq/L (136-145) L 08/24/18 14:10 Potassium 4.2 mEq/L (3.5-5.1) 08/24/18 14:10 Chloride 102 mEq/L (98-107) 08/24/18 14:10 Carbon Dioxide 26.4 mEq/L (21.0-31.0) 08/24/18 14:10 Anion Gap 9.8 (7.0-16.0) 08/24/18 14:10 BUN 15 mg/dL (7-25) 08/24/18 14:10 Creatinine 0.7 mg/dL (0.7-1.3) 08/24/18 14:10 Est GFR ( Amer) > 60.0 ml/min (>90) 08/24/18 14:10 Est GFR (Non-Af Amer) > 60.0 ml/min 08/24/18 14:10 BUN/Creatinine Ratio 21.4 08/24/18 14:10 Glucose 221 mg/dL (70-105) H 08/24/18 14:10 POC Glucose 144 MG/DL (70 - 105) H 08/26/18 12:07 Whole Bld Lactic Acid 1.58 mmol/L (0.60-1.99) 08/24/18 14:10 Calcium 9.3 mg/dL (8.6-10.3) 08/24/18 14:10 Phosphorus 3.3 mg/dL (2.5-5.0) 08/24/18 14:10 Magnesium 2.1 mg/dL (1.9-2.7) 08/24/18 14:10 Total Bilirubin 0.3 mg/dL (0.3-1.0) 08/24/18 14:10 AST 18 U/L (13-39) 08/24/18 14:10 ALT 18 U/L (7-52) 08/24/18 14:10 Alkaline Phosphatase 82 U/L (34-104) 08/24/18 14:10 Total Protein 6.9 gm/dL (6.0-8.3) 08/24/18 14:10 Albumin 3.5 gm/dL (4.2-5.5) L 08/24/18 14:10 Globulin 3.4 gm/dL 08/24/18 14:10 Albumin/Globulin Ratio 1.0 (1.0-1.8) 08/24/18 14:10 - Physical Exam Vitals and I&O: Vital Signs Temp 97.0 F 08/26/18 16:03 Pulse 96 08/26/18 16:03 Resp 18 08/26/18 16:03 BP 153/90 08/26/18 16:03 Pulse Ox 97 08/26/18 16:03 Intake & Output 08/25/18 08/26/18 08/26/18 18:59 06:59 18:59 Intake Total 4339 415 3169 Output Total 900 Balance 1050 -800 1000 Weight (lbs) 70.08 kg Intake: Intake, IV Amount 9649 557 1647 D5-0.45NS 1,000 ml @ 50 1000 1000 mls/hr IV .Q20H [facility] Rx#: [id number] cefTRIAXone 1 gm In 50 Sodium Chloride 0.9% 50 ml @ 100 mls/hr IV Q24HR [facility] Rx#:[id number] metroNIDAZOLE 500mg/NS 100 100mL 500 mg In 100 ml @ 100 mls/hr IV Q12HR [facility] Rx#:[id number] Output: Urine 900 Other: # Bowel Movements 1 Stool Characteristics Liquid Liquid Liquid Weight Source Bedscale Active Medications: Current Medications [place] Oil/[place]ij[place] Balsam/Trypsin (Venelex) 1 appl TP DAILY [facility] Stop: 10/25/18 08:59 Last Admin: 08/26/18 08:26 Dose: 1 appl Hydromorphone HCl (Dilaudid) 1 mg IVP Q4H PRN PRN Reason: Severe Pain Stop: 10/23/18 16:04 Last Admin: 08/26/18 16:37 Dose: 1 mg Dextrose/Sodium Chloride (D5-0.45ns) 1,000 mls @ 50 mls/hr IV .Q20H [facility] Stop: 10/23/18 17:29 Last Admin: 08/26/18 16:35 Dose: 50 mls/hr Ceftriaxone Sodium 1 gm/ (Sodium Chloride) 50 mls @ 100 mls/hr IV Q24HR [facility] Stop: 10/24/18 12:59 Last Admin: 08/26/18 12:12 Dose: 100 mls/hr Metronidazole (Flagyl) 500 mg in 100 mls @ 100 mls/hr IV Q12HR [facility] Stop: 10/24/18 20:59 Last Admin: 08/26/18 08:27 Dose: 100 mls/hr Insulin Aspart (Novolog Insulin Sliding Scale) 0 units SUBQ Q6HR [facility]; Protocol Stop: 10/23/18 17:59 Last Admin: 08/26/18 12:16 Dose: Not Given Ondansetron HCl (Zofran) 4 mg IV Q6H PRN PRN Reason: Nausea / Vomiting Stop: 10/23/18 17:24 - Procedures Procedures: Procedures Procedure Code Date EXCISION OF RIGHT UPPER FEMUR, OPEN APPROACH [id number] 07/25/18 INSPECTION OF LOWER INTESTINAL TRACT, ENDO [id number] 06/27/18 REPAIR ABDOMINAL WALL, OPEN APPROACH [id number] 07/25/18 Nutritional Asmnt/Malnutr-PDOC - Dietary Evaluation Malnutrition Findings (Please click <Entered> for more info): Nutritional Asmnt/Malnutrition Start: 08/25/18 12: 55 Text: Status: Complete Freq: Protocol: Document 08/25/18 12:55 CAROLEEWAYNE (Rec: 08/25/18 13:22 KRISTI [email or web address]) Nutritional Asmnt/Malnutrition Patient General Information Nutritional Screening High Risk Consult Diagnosis surgical wound dihiscence Pertinent Medical Hx/Surgical Hx bi AKA, HTN, colostomy, DM, chronic pain syndrom Subjective Information Consult received for glucose level higher than 180 at admission. Pt seen lying in bed at time of visit, refused to talk with RN. Pt stated " leave me alone". Pt was on CCHO 60gm diet at admission, now is on NPO. 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%), adj IBW 142lb, adj BMI 26.6 Current Diet Order/ Nutrition Support NPO Pertinent Medications D5-0.45ns, novolog Pertinent Labs 08/25 POC 151 08/24 Na 134, glucose 221, POC 210 Nutritional Hx/Data Height 1.83 m Height (Calculated Centimeters) 182.9 Current Weight (lbs) 71.668 kg Weight (Calculated Kilograms) 71.7 Weight (Calculated Grams) 23639.6 [place] Body Weight 142 Body Mass Index (BMI) 21.4 Weight Status Overweight GI Symptoms GI Symptoms None Last BM not indicated Difficult in: None Skin Integrity/Comment: decubitus ulcer to buttocks Estimated Nutritional Goals BEE in Kcals: Using Current wt Calories/Kcals/Kg 25-30 Kcals Calculated 5595-4358 Protein: Using Current wt Protein g/k-1.2 Protein Calculated 72-86 Fluid: ml 1800-2160ml (1ml/kcal) Nutritional Problem 2. Problem Problem increased nutrition needs Etiology impaired skin integrity Signs/Symptoms: decubitus ulcer to buttocks 1. Problem Problem altered nutrition related labs Etiology hx of DM Signs/Symptoms: glucose 221, POC 151-210 Malnutrition Alert Is there a minimum of two criteria No selected? Query Text:Check all the applicable criteria. A minimum of two criteria are recommended for diagnosis of either severe or non-severe malnutrition. Intervention/Recommendation Comments 1. Resume CCHO 60gm diet when medically appropriate. Will attampt to provide nutrition education when pt available. 2. Consider adding Carlos BID as needed after wound assessment. 3. Monitor PO intake, wt, labs and skin integrity 4. F/U as high risk in 2-3 days. 08/27-08/28 Expected Outcomes/Goals Expected Outcomes/Goals 1. PO intake to meet at least 75% of nutritional needs. 2. Wt stability, skin to remain intact, labs to approach WNL.
--- NOTE | 2018-08-26 21:17 | History & Physical ---
ADMIT DATE: 08/24/2018 HISTORY OF PRESENT ILLNESS: The patient was complaining of abdominal pain. He has abdominal dehiscence. The patient recently had a hernia repair. He also has a colostomy. The patient is well known me. Known to have bilateral above knee amputation, colostomy, hypertension, diabetes 2, chronic pain syndrome. [facility] has admitted because of the wound dehiscence repair as well as decubiti. PAST MEDICAL HISTORY: Unremarkable. PAST SURGICAL HISTORY: As enumerated above. FAMILY HISTORY: Unremarkable. PHYSICAL EXAMINATION: GENERAL: The patient on examination is alert, oriented male patient. VITAL SIGNS: Noted. HEAD: Normal. ENT: Normal. NECK: Supple, nontender. LUNGS: Clear. CARDIOVASCULAR SYSTEM: S1, S2 heard. ABDOMEN: Soft, nontender. Colostomy in the left lower quadrant. There is a wound in abdominal wall suprapubic area. There is stool soiling as well as there is some mild wound dehiscence and decubiti in the back. The patient has bilateral above knee amputation. DIAGNOSES: 1. The patient has abdominal wound dehiscence. 2. Infected. 3. Status post colostomy. 4. Bilateral above knee amputation. 5. Diabetes. 6. Hypertension. 7. Chronic pain syndrome. 8. History of depression. PLAN: The patient is going to be admitted and I will follow the patient. I will call Dr. Waters as well as Dr. Rajan Stoll for ID consult. For psychiatry, I will call Dr. Sawyer. JOB# [id number]
--- NOTE | 2018-08-26 23:46 | Infectious Disease Prog Note ---
Infectious Disease Subjective - Review of Systems Service Date: 08/26/18 Subjective: There is no new change. Infectious Disease Objective - Results Result Diagrams: 08/27/18 08:43 08/27/18 08:43 Recent Labs: Laboratory Last Values WBC 10.3 Th/cmm (4.8-10.8) 08/24/18 14:10 RBC 5.21 Mil/cmm (4.30-5.70) 08/24/18 14:10 Hgb 14.1 gm/dL (12-16) 08/24/18 14:10 Hct 44.2 % (41.0-60) 08/24/18 14:10 MCV 84.8 fl (80-99) 08/24/18 14:10 MCH 27.2 pg (26.0-30.0) 08/24/18 14:10 MCHC Differential 32.0 pg (28.0-36.0) 08/24/18 14:10 RDW 15.2 % (11.5-20.0) 08/24/18 14:10 Plt Count 345 Th/cmm (150-400) 08/24/18 14:10 MPV 7.5 fl 08/24/18 14:10 Neutrophils % 66.7 % (40.0-80.0) 08/24/18 14:10 Lymphocytes % 21.2 % (20.0-50.0) 08/24/18 14:10 Monocytes % 8.9 % (2.0-10.0) 08/24/18 14:10 Eosinophils % 2.8 % (0.0-5.0) 08/24/18 14:10 Basophils % 0.4 % (0.0-2.0) 08/24/18 14:10 Sodium 134 mEq/L (136-145) L 08/24/18 14:10 Potassium 4.2 mEq/L (3.5-5.1) 08/24/18 14:10 Chloride 102 mEq/L (98-107) 08/24/18 14:10 Carbon Dioxide 26.4 mEq/L (21.0-31.0) 08/24/18 14:10 Anion Gap 9.8 (7.0-16.0) 08/24/18 14:10 BUN 15 mg/dL (7-25) 08/24/18 14:10 Creatinine 0.7 mg/dL (0.7-1.3) 08/24/18 14:10 Est GFR ( Amer) > 60.0 ml/min (>90) 08/24/18 14:10 Est GFR (Non-Af Amer) > 60.0 ml/min 08/24/18 14:10 BUN/Creatinine Ratio 21.4 08/24/18 14:10 Glucose 221 mg/dL (70-105) H 08/24/18 14:10 POC Glucose 131 MG/DL (70 - 105) H 08/26/18 17:01 Whole Bld Lactic Acid 1.58 mmol/L (0.60-1.99) 08/24/18 14:10 Calcium 9.3 mg/dL (8.6-10.3) 08/24/18 14:10 Phosphorus 3.3 mg/dL (2.5-5.0) 08/24/18 14:10 Magnesium 2.1 mg/dL (1.9-2.7) 08/24/18 14:10 Total Bilirubin 0.3 mg/dL (0.3-1.0) 08/24/18 14:10 AST 18 U/L (13-39) 08/24/18 14:10 ALT 18 U/L (7-52) 08/24/18 14:10 Alkaline Phosphatase 82 U/L (34-104) 08/24/18 14:10 Total Protein 6.9 gm/dL (6.0-8.3) 08/24/18 14:10 Albumin 3.5 gm/dL (4.2-5.5) L 08/24/18 14:10 Globulin 3.4 gm/dL 08/24/18 14:10 Albumin/Globulin Ratio 1.0 (1.0-1.8) 08/24/18 14:10 - Physical Exam Vitals and I&O: Vital Signs Temp 97.0 F 08/26/18 16:03 Pulse 96 08/26/18 16:03 Resp 18 08/26/18 16:03 BP 153/90 08/26/18 16:03 Pulse Ox 97 08/26/18 16:03 Intake & Output 08/26/18 08/26/18 08/27/18 06:59 18:59 06:59 Intake Total 100 1300 100 Output Total 900 Balance -800 1300 100 Weight (lbs) 70.08 kg 69.853 kg Intake: Intake, IV Amount 100 1100 100 D5-0.45NS 1,000 ml @ 50 1000 mls/hr IV .Q20H [facility] Rx#: [id number] metroNIDAZOLE 500mg/NS 100 100 100 100mL 500 mg In 100 ml @ 100 mls/hr IV Q12HR [facility] Rx#:[id number] Oral 200 Output: Urine 900 Other: # Voids 4 # Bowel Movements 1 Stool Characteristics Liquid Liquid Weight Source Bedscale Bedscale Active Medications: Current Medications [place] Oil/[place] Balsam/Trypsin (Venelex) 1 appl TP DAILY [facility] Stop: 10/25/18 08:59 Last Admin: 08/26/18 08:26 Dose: 1 appl Hydromorphone HCl (Dilaudid) 1 mg IVP Q4H PRN PRN Reason: Severe Pain Stop: 10/23/18 16:04 Last Admin: 08/26/18 20:30 Dose: 1 mg Dextrose/Sodium Chloride (D5-0.45ns) 1,000 mls @ 50 mls/hr IV .Q20H [facility] Stop: 10/23/18 17:29 Last Admin: 08/26/18 16:35 Dose: 50 mls/hr Ceftriaxone Sodium 1 gm/ (Sodium Chloride) 50 mls @ 100 mls/hr IV Q24HR [facility] Stop: 10/24/18 12:59 Last Admin: 08/26/18 12:12 Dose: 100 mls/hr Metronidazole (Flagyl) 500 mg in 100 mls @ 100 mls/hr IV Q12HR [facility] Stop: 10/24/18 20:59 Last Infusion: 08/26/18 21:01 Dose: Infused Insulin Aspart (Novolog Insulin Sliding Scale) 0 units SUBQ Q6HR [facility]; Protocol Stop: 10/23/18 17:59 Last Admin: 08/26/18 17:09 Dose: Not Given Mupirocin (Bactroban Oint) 1 appl NS BID [facility] Stop: 08/31/18 17:01 Ondansetron HCl (Zofran) 4 mg IV Q6H PRN PRN Reason: Nausea / Vomiting Stop: 10/23/18 17:24 General: no acute distress, well developed, well nourished HEENT: atraumatic, normocephalic, PERRLA, EOMI Neck: supple, no thyromegaly Cardiovascular: S1S2, regular Lungs: clear to auscultation bilaterally, clear to percussion Abdomen: soft, no tender, no distended Extremities: other (b/l BKA) Skin: intact - Procedures Procedures: Procedures Procedure Code Date EXCISION OF RIGHT UPPER FEMUR, OPEN APPROACH [id number] 07/25/18 INSPECTION OF LOWER INTESTINAL TRACT, ENDO [id number] 05/20/18 REPAIR ABDOMINAL WALL, OPEN APPROACH [id number] 07/25/18 Infectious Disease Assmt/Plan - Assessment Assessment: 1. Wound dehiscence. 2. Colostomy. 3. DM2 4. HTN. 5. B/L BKA. 6. Chronic pain syndrome. - Plan Plan: CPM. Nutritional Asmnt/Malnutr-PDOC - Dietary Evaluation Malnutrition Findings (Please click <Entered> for more info): Nutritional Asmnt/Malnutrition Start: 08/25/18 12: 55 Text: Status: Complete Freq: Protocol: Document 08/25/18 12:55 [facility] (Rec: 08/25/18 13:22 HEN [email or web address]) Nutritional Asmnt/Malnutrition Patient General Information Nutritional Screening High Risk Consult Diagnosis surgical wound dihiscence Pertinent Medical Hx/Surgical Hx bi AKA, HTN, colostomy, DM, chronic pain syndrom Subjective Information Consult received for glucose level higher than 180 at admission. Pt seen lying in bed at time of visit, refused to talk with RN. Pt stated " leave me alone". Pt was on CCHO 60gm diet at admission, now is on NPO. 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%), adj IBW 142lb, adj BMI 26.6 Current Diet Order/ Nutrition Support NPO Pertinent Medications D5-0.45ns, novolog Pertinent Labs 08/25 POC 151 08/24 Na 134, glucose 221, POC 210 Nutritional Hx/Data Height 1.83 m Height (Calculated Centimeters) 182.9 Current Weight (lbs) 71.668 kg Weight (Calculated Kilograms) 71.7 Weight (Calculated Grams) 17641.6 [place] Body Weight 142 Body Mass Index (BMI) 21.4 Weight Status Overweight GI Symptoms GI Symptoms None Last BM not indicated Difficult in: None Skin Integrity/Comment: decubitus ulcer to buttocks Estimated Nutritional Goals BEE in Kcals: Using Current wt Calories/Kcals/Kg 25-30 Kcals Calculated 8053-5802 Protein: Using Current wt Protein g/k-1.2 Protein Calculated 72-86 Fluid: ml 1800-2160ml (1ml/kcal) Nutritional Problem 2. Problem Problem increased nutrition needs Etiology impaired skin integrity Signs/Symptoms: decubitus ulcer to buttocks 1. Problem Problem altered nutrition related labs Etiology hx of DM Signs/Symptoms: glucose 221, POC 151-210 Malnutrition Alert Is there a minimum of two criteria No selected? Query Text:Check all the applicable criteria. A minimum of two criteria are recommended for diagnosis of either severe or non-severe malnutrition. Intervention/Recommendation Comments 1. Resume CCHO 60gm diet when medically appropriate. Will attampt to provide nutrition education when pt available. 2. Consider adding Carlos BID as needed after wound assessment. 3. Monitor PO intake, wt, labs and skin integrity 4. F/U as high risk in 2-3 days. 08/27-08/28 Expected Outcomes/Goals Expected Outcomes/Goals 1. PO intake to meet at least 75% of nutritional needs. 2. Wt stability, skin to remain intact, labs to approach WNL.
--- NOTE | 2018-08-26 23:47 | Infectious Disease Prog Note ---
Infectious Disease Subjective - Review of Systems Service Date: 08/26/18 Subjective: No fever. Infectious Disease Objective - Results Result Diagrams: 08/27/18 08:43 08/27/18 08:43 Recent Labs: Laboratory Last Values WBC 10.3 Th/cmm (4.8-10.8) 08/24/18 14:10 RBC 5.21 Mil/cmm (4.30-5.70) 08/24/18 14:10 Hgb 14.1 gm/dL (12-16) 08/24/18 14:10 Hct 44.2 % (41.0-60) 08/24/18 14:10 MCV 84.8 fl (80-99) 08/24/18 14:10 MCH 27.2 pg (26.0-30.0) 08/24/18 14:10 MCHC Differential 32.0 pg (28.0-36.0) 08/24/18 14:10 RDW 15.2 % (11.5-20.0) 08/24/18 14:10 Plt Count 345 Th/cmm (150-400) 08/24/18 14:10 MPV 7.5 fl 08/24/18 14:10 Neutrophils % 66.7 % (40.0-80.0) 08/24/18 14:10 Lymphocytes % 21.2 % (20.0-50.0) 08/24/18 14:10 Monocytes % 8.9 % (2.0-10.0) 08/24/18 14:10 Eosinophils % 2.8 % (0.0-5.0) 08/24/18 14:10 Basophils % 0.4 % (0.0-2.0) 08/24/18 14:10 Sodium 134 mEq/L (136-145) L 08/24/18 14:10 Potassium 4.2 mEq/L (3.5-5.1) 08/24/18 14:10 Chloride 102 mEq/L (98-107) 08/24/18 14:10 Carbon Dioxide 26.4 mEq/L (21.0-31.0) 08/24/18 14:10 Anion Gap 9.8 (7.0-16.0) 08/24/18 14:10 BUN 15 mg/dL (7-25) 08/24/18 14:10 Creatinine 0.7 mg/dL (0.7-1.3) 08/24/18 14:10 Est GFR ( Amer) > 60.0 ml/min (>90) 08/24/18 14:10 Est GFR (Non-Af Amer) > 60.0 ml/min 08/24/18 14:10 BUN/Creatinine Ratio 21.4 08/24/18 14:10 Glucose 221 mg/dL (70-105) H 08/24/18 14:10 POC Glucose 131 MG/DL (70 - 105) H 08/26/18 17:01 Whole Bld Lactic Acid 1.58 mmol/L (0.60-1.99) 08/24/18 14:10 Calcium 9.3 mg/dL (8.6-10.3) 08/24/18 14:10 Phosphorus 3.3 mg/dL (2.5-5.0) 08/24/18 14:10 Magnesium 2.1 mg/dL (1.9-2.7) 08/24/18 14:10 Total Bilirubin 0.3 mg/dL (0.3-1.0) 08/24/18 14:10 AST 18 U/L (13-39) 08/24/18 14:10 ALT 18 U/L (7-52) 08/24/18 14:10 Alkaline Phosphatase 82 U/L (34-104) 08/24/18 14:10 Total Protein 6.9 gm/dL (6.0-8.3) 08/24/18 14:10 Albumin 3.5 gm/dL (4.2-5.5) L 08/24/18 14:10 Globulin 3.4 gm/dL 08/24/18 14:10 Albumin/Globulin Ratio 1.0 (1.0-1.8) 08/24/18 14:10 - Physical Exam Vitals and I&O: Vital Signs Temp 97.0 F 08/26/18 16:03 Pulse 96 08/26/18 16:03 Resp 18 08/26/18 16:03 BP 153/90 08/26/18 16:03 Pulse Ox 97 08/26/18 16:03 Intake & Output 08/26/18 08/26/18 08/27/18 06:59 18:59 06:59 Intake Total 100 1300 100 Output Total 900 Balance -800 1300 100 Weight (lbs) 70.08 kg 69.853 kg Intake: Intake, IV Amount 100 1100 100 D5-0.45NS 1,000 ml @ 50 1000 mls/hr IV .Q20H [facility] Rx#: [id number] metroNIDAZOLE 500mg/NS 100 100 100 100mL 500 mg In 100 ml @ 100 mls/hr IV Q12HR [facility] Rx#:[id number] Oral 200 Output: Urine 900 Other: # Voids 4 # Bowel Movements 1 Stool Characteristics Liquid Liquid Weight Source Bedscale Bedscale Active Medications: Current Medications [place] Oil/[place] Balsam/Trypsin (Venelex) 1 appl TP DAILY [facility] Stop: 10/25/18 08:59 Last Admin: 08/26/18 08:26 Dose: 1 appl Hydromorphone HCl (Dilaudid) 1 mg IVP Q4H PRN PRN Reason: Severe Pain Stop: 10/23/18 16:04 Last Admin: 08/26/18 20:30 Dose: 1 mg Dextrose/Sodium Chloride (D5-0.45ns) 1,000 mls @ 50 mls/hr IV .Q20H [facility] Stop: 10/23/18 17:29 Last Admin: 08/26/18 16:35 Dose: 50 mls/hr Ceftriaxone Sodium 1 gm/ (Sodium Chloride) 50 mls @ 100 mls/hr IV Q24HR [facility] Stop: 10/24/18 12:59 Last Admin: 08/26/18 12:12 Dose: 100 mls/hr Metronidazole (Flagyl) 500 mg in 100 mls @ 100 mls/hr IV Q12HR [facility] Stop: 10/24/18 20:59 Last Infusion: 08/26/18 21:01 Dose: Infused Insulin Aspart (Novolog Insulin Sliding Scale) 0 units SUBQ Q6HR [facility]; Protocol Stop: 10/23/18 17:59 Last Admin: 08/26/18 17:09 Dose: Not Given Mupirocin (Bactroban Oint) 1 appl NS BID [facility] Stop: 08/31/18 17:01 Ondansetron HCl (Zofran) 4 mg IV Q6H PRN PRN Reason: Nausea / Vomiting Stop: 10/23/18 17:24 General: no acute distress, well developed, well nourished HEENT: atraumatic, normocephalic, PERRLA Neck: supple, no thyromegaly, no lymphadenopathy Cardiovascular: S1S2, regular Lungs: clear to auscultation bilaterally, clear to percussion Abdomen: soft, other (open wound on the the surgical incision. Colostomy LLQ.) Extremities: other (B/l BKA), no cyanosis - Procedures Procedures: Procedures Procedure Code Date EXCISION OF RIGHT UPPER FEMUR, OPEN APPROACH [id number] 07/25/18 INSPECTION OF LOWER INTESTINAL TRACT, ENDO [id number] 05/20/18 REPAIR ABDOMINAL WALL, OPEN APPROACH [id number] 07/25/18 Infectious Disease Assmt/Plan - Assessment Assessment: 1. Wound dehiscence. 2. Colostomy. 3. DM2 4. HTN. 5. B/L BKA. 6. Chronic pain syndrome. - Plan Plan: CPM. Nutritional Asmnt/Malnutr-PDOC - Dietary Evaluation Malnutrition Findings (Please click <Entered> for more info): Nutritional Asmnt/Malnutrition Start: 08/25/18 12: 55 Text: Status: Complete Freq: Protocol: Document 08/25/18 12:55 [facility] (Rec[facility] 08[facility]25/18 13:22 [email or web address] Nutritional Asmnt/Malnutrition Patient General Information Nutritional Screening High Risk Consult Diagnosis surgical wound dihiscence Pertinent Medical Hx/Surgical Hx bi AKA, HTN, colostomy, DM, chronic pain syndrom Subjective Information Consult received for glucose level higher than 180 at admission. Pt seen lying in bed at time of visit, refused to talk with RN. Pt stated " leave me alone". Pt was on CCHO 60gm diet at admission, now is on NPO. 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%), adj IBW 142lb, adj BMI 26.6 Current Diet Order/ Nutrition Support NPO Pertinent Medications D5-0.45ns, novolog Pertinent Labs 08/25 POC 151 08/24 Na 134, glucose 221, POC 210 Nutritional Hx/Data Height 1.83 m Height (Calculated Centimeters) 182.9 Current Weight (lbs) 71.668 kg Weight (Calculated Kilograms) 71.7 Weight (Calculated Grams) 49452.6 [place] Body Weight 142 Body Mass Index (BMI) 21.4 Weight Status Overweight GI Symptoms GI Symptoms None Last BM not indicated Difficult in: None Skin Integrity/Comment: decubitus ulcer to buttocks Estimated Nutritional Goals BEE in Kcals: Using Current wt Calories/Kcals/Kg 25-30 Kcals Calculated 3105-2328 Protein: Using Current wt Protein g/k-1.2 Protein Calculated 72-86 Fluid: ml 1800-2160ml (1ml/kcal) Nutritional Problem 2. Problem Problem increased nutrition needs Etiology impaired skin integrity Signs/Symptoms: decubitus ulcer to buttocks 1. Problem Problem altered nutrition related labs Etiology hx of DM Signs/Symptoms: glucose 221, POC 151-210 Malnutrition Alert Is there a minimum of two criteria No selected? Query Text:Check all the applicable criteria. A minimum of two criteria are recommended for diagnosis of either severe or non-severe malnutrition. Intervention/Recommendation Comments 1. Resume CCHO 60gm diet when medically appropriate. Will attampt to provide nutrition education when pt available. 2. Consider adding Carlos BID as needed after wound assessment. 3. Monitor PO intake, wt, labs and skin integrity 4. F/U as high risk in 2-3 days. 08/27-08/28 Expected Outcomes/Goals Expected Outcomes/Goals 1. PO intake to meet at least 75% of nutritional needs. 2. Wt stability, skin to remain intact, labs to approach WNL.
[2018-08-27] MEDS: HYDROmorphone 1 mg/mL 1mL Syr IVP PRN ×7 (00:30→23:58)
[2018-08-27] MEDS: INSULIN ASPART SLIDING SCALE 100 UNITS/ML UNIT SUBQ SCH ×5 (00:36→23:27)
[2018-08-27] MEDS: metroNIDAZOLE 500mg/NS 100mL 500 MG/100 ML BAG IV SCH (08:28)
[2018-08-27] MEDS: Venelex 60gm Tube TP SCH (08:29)
--- NOTE | 2018-08-27 08:48 | General Progress Note ---
Subjective - Review of Systems Service Date: 08/27/18 Events since last encounter: minimal drainage from open wound of lower abdominal incision no fistula wants to go home, ok if repeat labs normal Objective - Results Result Diagrams: 08/24/18 14:10 08/24/18 14:10 Recent Labs: Laboratory Last Values WBC 10.3 Th/cmm (4.8-10.8) 08/24/18 14:10 RBC 5.21 Mil/cmm (4.30-5.70) 08/24/18 14:10 Hgb 14.1 gm/dL (12-16) 08/24/18 14:10 Hct 44.2 % (41.0-60) 08/24/18 14:10 MCV 84.8 fl (80-99) 08/24/18 14:10 MCH 27.2 pg (26.0-30.0) 08/24/18 14:10 MCHC Differential 32.0 pg (28.0-36.0) 08/24/18 14:10 RDW 15.2 % (11.5-20.0) 08/24/18 14:10 Plt Count 345 Th/cmm (150-400) 08/24/18 14:10 MPV 7.5 fl 08/24/18 14:10 Neutrophils % 66.7 % (40.0-80.0) 08/24/18 14:10 Lymphocytes % 21.2 % (20.0-50.0) 08/24/18 14:10 Monocytes % 8.9 % (2.0-10.0) 08/24/18 14:10 Eosinophils % 2.8 % (0.0-5.0) 08/24/18 14:10 Basophils % 0.4 % (0.0-2.0) 08/24/18 14:10 Sodium 134 mEq/L (136-145) L 08/24/18 14:10 Potassium 4.2 mEq/L (3.5-5.1) 08/24/18 14:10 Chloride 102 mEq/L (98-107) 08/24/18 14:10 Carbon Dioxide 26.4 mEq/L (21.0-31.0) 08/24/18 14:10 Anion Gap 9.8 (7.0-16.0) 08/24/18 14:10 BUN 15 mg/dL (7-25) 08/24/18 14:10 Creatinine 0.7 mg/dL (0.7-1.3) 08/24/18 14:10 Est GFR ( Amer) > 60.0 ml/min (>90) 08/24/18 14:10 Est GFR (Non-Af Amer) > 60.0 ml/min 08/24/18 14:10 BUN/Creatinine Ratio 21.4 08/24/18 14:10 Glucose 221 mg/dL (70-105) H 08/24/18 14:10 POC Glucose 172 MG/DL (70 - 105) H 08/27/18 05:25 Whole Bld Lactic Acid 1.58 mmol/L (0.60-1.99) 08/24/18 14:10 Calcium 9.3 mg/dL (8.6-10.3) 08/24/18 14:10 Phosphorus 3.3 mg/dL (2.5-5.0) 08/24/18 14:10 Magnesium 2.1 mg/dL (1.9-2.7) 08/24/18 14:10 Total Bilirubin 0.3 mg/dL (0.3-1.0) 08/24/18 14:10 AST 18 U/L (13-39) 08/24/18 14:10 ALT 18 U/L (7-52) 08/24/18 14:10 Alkaline Phosphatase 82 U/L (34-104) 08/24/18 14:10 Total Protein 6.9 gm/dL (6.0-8.3) 08/24/18 14:10 Albumin 3.5 gm/dL (4.2-5.5) L 08/24/18 14:10 Globulin 3.4 gm/dL 08/24/18 14:10 Albumin/Globulin Ratio 1.0 (1.0-1.8) 08/24/18 14:10 - Physical Exam Vitals and I&O: Vital Signs Temp 97.7 F 08/27/18 08:00 Pulse 92 08/27/18 08:00 Resp 17 08/27/18 08:00 BP 157/92 08/27/18 08:00 Pulse Ox 95 08/27/18 08:00 Intake & Output 08/26/18 08/27/18 08/27/18 18:59 06:59 18:59 Intake Total 1300 220 Output Total 950 Balance 1300 -730 Weight (lbs) 69.853 kg 69.808 kg Intake: Intake, IV Amount 1100 100 D5-0.45NS 1,000 ml @ 50 1000 mls/hr IV .Q20H [facility] Rx#: [id number] metroNIDAZOLE 500mg/NS 100 100 100mL 500 mg In 100 ml @ 100 mls/hr IV Q12HR [facility] Rx#:[id number] Oral 200 120 Output: Urine 950 Other: # Voids 4 # Bowel Movements 1 Stool Characteristics Liquid Weight Source Bedscale Bedscale Active Medications: Current Medications [place] Oil/[place] Balsam/Trypsin (Venelex) 1 appl TP DAILY [facility] Stop: 10/25/18 08:59 Last Admin: 08/27/18 08:29 Dose: 1 appl Hydromorphone HCl (Dilaudid) 1 mg IVP Q4H PRN PRN Reason: Severe Pain Stop: 10/23/18 16:04 Last Admin: 08/27/18 08:27 Dose: 1 mg Dextrose/Sodium Chloride (D5-0.45ns) 1,000 mls @ 50 mls/hr IV .Q20H [facility] Stop: 10/23/18 17:29 Last Admin: 08/26/18 16:35 Dose: 50 mls/hr Ceftriaxone Sodium 1 gm/ (Sodium Chloride) 50 mls @ 100 mls/hr IV Q24HR [facility] Stop: 10/24/18 12:59 Last Admin: 08/26/18 12:12 Dose: 100 mls/hr Metronidazole (Flagyl) 500 mg in 100 mls @ 100 mls/hr IV Q12HR [facility] Stop: 10/24/18 20:59 Last Admin: 08/27/18 08:28 Dose: 100 mls/hr Insulin Aspart (Novolog Insulin Sliding Scale) 0 units SUBQ Q6HR [facility]; Protocol Stop: 10/23/18 17:59 Last Admin: 08/27/18 06:20 Dose: Not Given Mupirocin (Bactroban Oint) 1 appl NS BID [facility] Stop: 08/31/18 17:01 Ondansetron HCl (Zofran) 4 mg IV Q6H PRN PRN Reason: Nausea / Vomiting Stop: 10/23/18 17:24 - Procedures Procedures: Procedures Procedure Code Date EXCISION OF RIGHT UPPER FEMUR, OPEN APPROACH [id number] 07/25/18 INSPECTION OF LOWER INTESTINAL TRACT, ENDO [id number] 05/20/18 REPAIR ABDOMINAL WALL, OPEN APPROACH [id number] 07/25/18 Nutritional Asmnt/Malnutr-PDOC - Dietary Evaluation Malnutrition Findings (Please click <Entered> for more info): Nutritional Asmnt/Malnutrition Start: 08/25/18 12: 55 Text: Status: Complete Freq: Protocol: Document 08/25/18 12:55 [facility] (Rec: 08/25/18 13:22 [facility] [email or web address]) Nutritional Asmnt/Malnutrition Patient General Information Nutritional Screening High Risk Consult Diagnosis surgical wound dihiscence Pertinent Medical Hx/Surgical Hx bi AKA, HTN, colostomy, DM, chronic pain syndrom Subjective Information Consult received for glucose level higher than 180 at admission. Pt seen lying in bed at time of visit, refused to talk with RN. Pt stated " leave me alone". Pt was on CCHO 60gm diet at admission, now is on NPO. 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%), adj IBW 142lb, adj BMI 26.6 Current Diet Order/ Nutrition Support NPO Pertinent Medications D5-0.45ns, novolog Pertinent Labs 08/25 POC 151 08/24 Na 134, glucose 221, POC 210 Nutritional Hx/Data Height 1.83 m Height (Calculated Centimeters) 182.9 Current Weight (lbs) 71.668 kg Weight (Calculated Kilograms) 71.7 Weight (Calculated Grams) 22681.6 [place] Body Weight 142 Body Mass Index (BMI) 21.4 Weight Status Overweight GI Symptoms GI Symptoms None Last BM not indicated Difficult in: None Skin Integrity/Comment: decubitus ulcer to buttocks Estimated Nutritional Goals BEE in Kcals: Using Current wt Calories/Kcals/Kg 25-30 Kcals Calculated 2595-9287 Protein: Using Current wt Protein g/k-1.2 Protein Calculated 72-86 Fluid: ml 1800-2160ml (1ml/kcal) Nutritional Problem 2. Problem Problem increased nutrition needs Etiology impaired skin integrity Signs/Symptoms: decubitus ulcer to buttocks 1. Problem Problem altered nutrition related labs Etiology hx of DM Signs/Symptoms: glucose 221, POC 151-210 Malnutrition Alert Is there a minimum of two criteria No selected? Query Text:Check all the applicable criteria. A minimum of two criteria are recommended for diagnosis of either severe or non-severe malnutrition. Intervention/Recommendation Comments 1. Resume CCHO 60gm diet when medically appropriate. Will attampt to provide nutrition education when pt available. 2. Consider adding Carlos BID as needed after wound assessment. 3. Monitor PO intake, wt, labs and skin integrity 4. F/U as high risk in 2-3 days. 08/27-08/28 Expected Outcomes/Goals Expected Outcomes/Goals 1. PO intake to meet at least 75% of nutritional needs. 2. Wt stability, skin to remain intact, labs to approach WNL.
[2018-08-27 08:53] LABS: % BASOPHILS 0.6 % (0.0-2.0); % EOSINOPHILS 3.1 % (0.0-5.0); % LYMPHOCYTES 17.1 % (20.0-50.0); % MONOCYTES 8.2 % (2.0-10.0); EOSINOPHILE ABSOLUTE 0.2 Th/cmm (0.1-0.4); HEMATOCRIT 48.8 % (41.0-60); HEMOGLOBIN 16.1 gm/dL (12-16); LYMPHOCYTE ABSOLUTE 1.2 Th/cmm (1.5-3.0); MEAN CELL VOLUME 84.1 fl (80-99); MEAN CORPUSCULAR HEMOGLOBIN 27.7 pg (26.0-30.0); MEAN PLATELET VOLUME 7.5 fl; MONOCYTE ABSOLUTE 0.6 Th/cmm (0.3-1.0); NEUTROPHILE ABSOLUTE 5.2 Th/cmm (1.8-8.0); PLATELET COUNT 300 Th/cmm (150-400); RED CELL DISTRIBUTION WIDTH 14.8 % (11.5-20.0); WHITE BLOOD COUNT 7.2 Th/cmm (4.8-10.8)
[2018-08-27 09:11] LABS: ANION GAP 11.5 (7.0-16.0); BUN - UREA NITROGEN 6 mg/dL (7-25); CALCIUM SERUM 9.2 mg/dL (8.6-10.3); CARBON DIOXIDE 22.2 mEq/L (21.0-31.0); CHLORIDE 105 mEq/L (98-107); CREATININE - SERUM 0.5 mg/dL (0.7-1.3); GFR AFRICAN-AMERICAN > 60.0 ml/min (>90); GFR NON AFRICAN-AMERICAN > 60.0 ml/min; GLUCOSE 182 mg/dL (70-105); POTASSIUM SERUM 3.7 mEq/L (3.5-5.1); SODIUM SERUM 135 mEq/L (136-145)
[2018-08-27] MEDS ORDERED: Probiotic Screen MC PRN (10:45)
--- NOTE | 2018-08-27 12:07 | Infectious Disease Prog Note ---
Infectious Disease Subjective - Review of Systems Service Date: 08/27/18 Subjective: There is no new change. Cultures are reviewed. Infectious Disease Objective - Results Result Diagrams: 08/27/18 08:43 08/27/18 08:43 Recent Labs: Laboratory Last Values WBC 7.2 Th/cmm (4.8-10.8) 08/27/18 08:43 RBC 5.80 Mil/cmm (4.30-5.70) H 08/27/18 08:43 Hgb 16.1 gm/dL (12-16) 08/27/18 08:43 Hct 48.8 % (41.0-60) 08/27/18 08:43 MCV 84.1 fl (80-99) 08/27/18 08:43 MCH 27.7 pg (26.0-30.0) 08/27/18 08:43 MCHC Differential 33.0 pg (28.0-36.0) 08/27/18 08:43 RDW 14.8 % (11.5-20.0) 08/27/18 08:43 Plt Count 300 Th/cmm (150-400) 08/27/18 08:43 MPV 7.5 fl 08/27/18 08:43 Neutrophils % 71.0 % (40.0-80.0) 08/27/18 08:43 Lymphocytes % 17.1 % (20.0-50.0) L 08/27/18 08:43 Monocytes % 8.2 % (2.0-10.0) 08/27/18 08:43 Eosinophils % 3.1 % (0.0-5.0) 08/27/18 08:43 Basophils % 0.6 % (0.0-2.0) 08/27/18 08:43 Sodium 135 mEq/L (136-145) L 08/27/18 08:43 Potassium 3.7 mEq/L (3.5-5.1) 08/27/18 08:43 Chloride 105 mEq/L (98-107) 08/27/18 08:43 Carbon Dioxide 22.2 mEq/L (21.0-31.0) 08/27/18 08:43 Anion Gap 11.5 (7.0-16.0) 08/27/18 08:43 BUN 6 mg/dL (7-25) L 08/27/18 08:43 Creatinine 0.5 mg/dL (0.7-1.3) L 08/27/18 08:43 Est GFR ( Amer) > 60.0 ml/min (>90) 08/27/18 08:43 Est GFR (Non-Af Amer) > 60.0 ml/min 08/27/18 08:43 BUN/Creatinine Ratio 12.0 08/27/18 08:43 Glucose 182 mg/dL (70-105) H 08/27/18 08:43 POC Glucose 172 MG/DL (70 - 105) H 08/27/18 05:25 Whole Bld Lactic Acid 1.58 mmol/L (0.60-1.99) 08/24/18 14:10 Calcium 9.2 mg/dL (8.6-10.3) 08/27/18 08:43 Phosphorus 3.3 mg/dL (2.5-5.0) 08/24/18 14:10 Magnesium 2.1 mg/dL (1.9-2.7) 08/24/18 14:10 Total Bilirubin 0.3 mg/dL (0.3-1.0) 08/24/18 14:10 AST 18 U/L (13-39) 08/24/18 14:10 ALT 18 U/L (7-52) 08/24/18 14:10 Alkaline Phosphatase 82 U/L (34-104) 08/24/18 14:10 Total Protein 6.9 gm/dL (6.0-8.3) 08/24/18 14:10 Albumin 3.5 gm/dL (4.2-5.5) L 08/24/18 14:10 Globulin 3.4 gm/dL 08/24/18 14:10 Albumin/Globulin Ratio 1.0 (1.0-1.8) 08/24/18 14:10 - Physical Exam Vitals and I&O: Vital Signs Temp 98.2 F 08/27/18 11:33 Pulse 87 08/27/18 11:33 Resp 17 08/27/18 11:33 BP 154/98 08/27/18 11:33 Pulse Ox 97 08/27/18 11:33 Intake & Output 08/26/18 08/27/18 08/27/18 18:59 06:59 18:59 Intake Total 1300 220 240 Output Total 950 Balance 1300 -730 240 Weight (lbs) 69.853 kg 69.808 kg 69.808 kg Intake: Intake, IV Amount 1100 100 D5-0.45NS 1,000 ml @ 50 1000 mls/hr IV .Q20H [facility] Rx#: [id number] metroNIDAZOLE 500mg/NS 100 100 100mL 500 mg In 100 ml @ 100 mls/hr IV Q12HR [facility] Rx#:[id number] Oral 200 120 240 Output: Urine 950 Other: # Voids 4 # Bowel Movements 1 Stool Characteristics Liquid Weight Source Bedscale Bedscale Bedscale Active Medications: Current Medications [place] Oil/[place] Balsam/Trypsin (Venelex) 1 appl TP DAILY [facility] Stop: 10/25/18 08:59 Last Admin: 08/27/18 08:29 Dose: 1 appl Hydromorphone HCl (Dilaudid) 1 mg IVP Q4H PRN PRN Reason: Severe Pain Stop: 10/23/18 16:04 Last Admin: 08/27/18 08:27 Dose: 1 mg Dextrose/Sodium Chloride (D5-0.45ns) 1,000 mls @ 50 mls/hr IV .Q20H [facility] Stop: 10/23/18 17:29 Last Admin: 08/26/18 16:35 Dose: 50 mls/hr Ceftriaxone Sodium 1 gm/ (Sodium Chloride) 50 mls @ 100 mls/hr IV Q24HR [facility] Stop: 10/24/18 12:59 Last Admin: 08/26/18 12:12 Dose: 100 mls/hr Metronidazole (Flagyl) 500 mg in 100 mls @ 100 mls/hr IV Q12HR [facility] Stop: 10/24/18 20:59 Last Admin: 08/27/18 08:28 Dose: 100 mls/hr Insulin Aspart (Novolog Insulin Sliding Scale) 0 units SUBQ Q6HR [facility]; Protocol Stop: 10/23/18 17:59 Last Admin: 08/27/18 06:20 Dose: Not Given Lactobacillus Rhamnosus (Culturelle 15b) 1 each PO DAILY [facility] Stop: 10/27/18 08:59 Miscellaneous (Probiotic Screen) 1 ea MC PRN PRN PRN Reason: PROTOCOL Stop: 10/26/18 10:44 Mupirocin (Bactroban Oint) 1 appl NS BID [facility] Stop: 08/31/18 17:01 Last Admin: 08/27/18 09:13 Dose: 1 appl Ondansetron HCl (Zofran) 4 mg IV Q6H PRN PRN Reason: Nausea / Vomiting Stop: 10/23/18 17:24 General: no acute distress, well developed, well nourished HEENT: atraumatic, normocephalic, PERRLA, EOMI Neck: supple, no thyromegaly Cardiovascular: S1S2, regular Lungs: clear to auscultation bilaterally, clear to percussion Abdomen: soft, other (Colostomy LLQ, there is surgical incision with open wound in suprapubic area.), no tender, no distended Extremities: other (B/L BKA) Neurological: awake, alert, oriented - Procedures Procedures: Procedures Procedure Code Date EXCISION OF RIGHT UPPER FEMUR, OPEN APPROACH [id number] 07/25/18 INSPECTION OF LOWER INTESTINAL TRACT, ENDO [id number] 05/20/18 REPAIR ABDOMINAL WALL, OPEN APPROACH [id number] 07/25/18 Infectious Disease Assmt/Plan - Assessment Assessment: 1. Wound dehiscence. 2. Colostomy. 3. DM2 4. HTN. 5. B/L BKA. 6. Chronic pain syndrome. - Plan Plan: Change antibiotics to vanco IV and meropenem for 2 weeks. Wound care. Nutritional Asmnt/Malnutr-PDOC - Dietary Evaluation Malnutrition Findings (Please click <Entered> for more info): Nutritional Asmnt/Malnutrition Start: 08/25/18 12: 55 Text: Status: Complete Freq: Protocol: Document 08/25/18 12:55 [facility] (Rec: 08/25/18 13:22 [facility] [email or web address]) Nutritional Asmnt/Malnutrition Patient General Information Nutritional Screening High Risk Consult Diagnosis surgical wound dihiscence Pertinent Medical Hx/Surgical Hx bi AKA, HTN, colostomy, DM, chronic pain syndrom Subjective Information Consult received for glucose level higher than 180 at admission. Pt seen lying in bed at time of visit, refused to talk with RN. Pt stated " leave me alone". Pt was on CCHO 60gm diet at admission, now is on NPO. 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%), adj IBW 142lb, adj BMI 26.6 Current Diet Order/ Nutrition Support NPO Pertinent Medications D5-0.45ns, novolog Pertinent Labs 08/25 POC 151 08/24 Na 134, glucose 221, POC 210 Nutritional Hx/Data Height 1.83 m Height (Calculated Centimeters) 182.9 Current Weight (lbs) 71.668 kg Weight (Calculated Kilograms) 71.7 Weight (Calculated Grams) 56368.6 [place] Body Weight 142 Body Mass Index (BMI) 21.4 Weight Status Overweight GI Symptoms GI Symptoms None Last BM not indicated Difficult in: None Skin Integrity/Comment: decubitus ulcer to buttocks Estimated Nutritional Goals BEE in Kcals: Using Current wt Calories/Kcals/Kg 25-30 Kcals Calculated 7043-4063 Protein: Using Current wt Protein g/k-1.2 Protein Calculated 72-86 Fluid: ml 1800-2160ml (1ml/kcal) Nutritional Problem 2. Problem Problem increased nutrition needs Etiology impaired skin integrity Signs/Symptoms: decubitus ulcer to buttocks 1. Problem Problem altered nutrition related labs Etiology hx of DM Signs/Symptoms: glucose 221, POC 151-210 Malnutrition Alert Is there a minimum of two criteria No selected? Query Text:Check all the applicable criteria. A minimum of two criteria are recommended for diagnosis of either severe or non-severe malnutrition. Intervention/Recommendation Comments 1. Resume CCHO 60gm diet when medically appropriate. Will attampt to provide nutrition education when pt available. 2. Consider adding Carlos BID as needed after wound assessment. 3. Monitor PO intake, wt, labs and skin integrity 4. F/U as high risk in 2-3 days. 08/27-08/28 Expected Outcomes/Goals Expected Outcomes/Goals 1. PO intake to meet at least 75% of nutritional needs. 2. Wt stability, skin to remain intact, labs to approach WNL.
[2018-08-27] MEDS: D5-0.45NS 1,000 ML IV SCH (12:49)
--- NOTE | 2018-08-27 14:06 | General Progress Note ---
Subjective - Review of Systems Service Date: 08/27/18 Events since last encounter: stage 4 right hip ulcer for 7 years, shall left hip ulcer. discussed with patient regarding debridement and flap closure or wound vac will consider giving consent Objective - Results Result Diagrams: 08/27/18 08:43 08/27/18 08:43 Recent Labs: Laboratory Last Values WBC 7.2 Th/cmm (4.8-10.8) 08/27/18 08:43 RBC 5.80 Mil/cmm (4.30-5.70) H 08/27/18 08:43 Hgb 16.1 gm/dL (12-16) 08/27/18 08:43 Hct 48.8 % (41.0-60) 08/27/18 08:43 MCV 84.1 fl (80-99) 08/27/18 08:43 MCH 27.7 pg (26.0-30.0) 08/27/18 08:43 MCHC Differential 33.0 pg (28.0-36.0) 08/27/18 08:43 RDW 14.8 % (11.5-20.0) 08/27/18 08:43 Plt Count 300 Th/cmm (150-400) 08/27/18 08:43 MPV 7.5 fl 08/27/18 08:43 Neutrophils % 71.0 % (40.0-80.0) 08/27/18 08:43 Lymphocytes % 17.1 % (20.0-50.0) L 08/27/18 08:43 Monocytes % 8.2 % (2.0-10.0) 08/27/18 08:43 Eosinophils % 3.1 % (0.0-5.0) 08/27/18 08:43 Basophils % 0.6 % (0.0-2.0) 08/27/18 08:43 Sodium 135 mEq/L (136-145) L 08/27/18 08:43 Potassium 3.7 mEq/L (3.5-5.1) 08/27/18 08:43 Chloride 105 mEq/L (98-107) 08/27/18 08:43 Carbon Dioxide 22.2 mEq/L (21.0-31.0) 08/27/18 08:43 Anion Gap 11.5 (7.0-16.0) 08/27/18 08:43 BUN 6 mg/dL (7-25) L 08/27/18 08:43 Creatinine 0.5 mg/dL (0.7-1.3) L 08/27/18 08:43 Est GFR ( Amer) > 60.0 ml/min (>90) 08/27/18 08:43 Est GFR (Non-Af Amer) > 60.0 ml/min 08/27/18 08:43 BUN/Creatinine Ratio 12.0 08/27/18 08:43 Glucose 182 mg/dL (70-105) H 08/27/18 08:43 POC Glucose 172 MG/DL (70 - 105) H 08/27/18 05:25 Whole Bld Lactic Acid 1.58 mmol/L (0.60-1.99) 08/24/18 14:10 Calcium 9.2 mg/dL (8.6-10.3) 08/27/18 08:43 Phosphorus 3.3 mg/dL (2.5-5.0) 08/24/18 14:10 Magnesium 2.1 mg/dL (1.9-2.7) 08/24/18 14:10 Total Bilirubin 0.3 mg/dL (0.3-1.0) 08/24/18 14:10 AST 18 U/L (13-39) 08/24/18 14:10 ALT 18 U/L (7-52) 08/24/18 14:10 Alkaline Phosphatase 82 U/L (34-104) 08/24/18 14:10 Total Protein 6.9 gm/dL (6.0-8.3) 08/24/18 14:10 Albumin 3.5 gm/dL (4.2-5.5) L 08/24/18 14:10 Globulin 3.4 gm/dL 08/24/18 14:10 Albumin/Globulin Ratio 1.0 (1.0-1.8) 08/24/18 14:10 - Physical Exam Vitals and I&O: Vital Signs Temp 98.2 F 08/27/18 11:33 Pulse 87 08/27/18 11:33 Resp 17 08/27/18 11:33 BP 154/98 08/27/18 11:33 Pulse Ox 97 08/27/18 11:33 Intake & Output 08/26/18 08/27/18 08/27/18 18:59 06:59 18:59 Intake Total 9876 359 0075 Output Total 950 Balance 1300 -730 1240 Weight (lbs) 69.853 kg 69.808 kg 69.808 kg Intake: Intake, IV Amount 8797 498 3863 D5-0.45NS 1,000 ml @ 50 1000 1000 mls/hr IV .Q20H [facility] Rx#: [id number] metroNIDAZOLE 500mg/NS 100 100 100mL 500 mg In 100 ml @ 100 mls/hr IV Q12HR [facility] Rx#:[id number] Oral 200 120 240 Output: Urine 950 Other: # Voids 4 # Bowel Movements 1 Stool Characteristics Liquid Weight Source Bedscale Bedscale Bedscale Active Medications: Current Medications [place] Oil/[place] Balsam/Trypsin (Venelex) 1 appl TP DAILY [facility] Stop: 10/25/18 08:59 Last Admin: 08/27/18 08:29 Dose: 1 appl Hydromorphone HCl (Dilaudid) 1 mg IVP Q4H PRN PRN Reason: Severe Pain Stop: 10/23/18 16:04 Last Admin: 08/27/18 12:35 Dose: 1 mg Dextrose/Sodium Chloride (D5-0.45ns) 1,000 mls @ 50 mls/hr IV .Q20H [facility] Stop: 10/23/18 17:29 Last Admin: 08/27/18 12:49 Dose: 50 mls/hr Meropenem 1 gm/ Sodium (Chloride) 100 mls @ 100 mls/hr IV Q8H [facility] Stop: 10/26/18 13:59 Vancomycin HCl 1.25 gm/ Sodium (Chloride) 250 mls @ 165 mls/hr IV Q12H [facility] Stop: 10/26/18 14:59 Insulin Aspart (Novolog Insulin Sliding Scale) 0 units SUBQ Q6HR [facility]; Protocol Stop: 10/23/18 17:59 Last Admin: 08/27/18 12:18 Dose: Not Given Lactobacillus Rhamnosus (Culturelle 15b) 1 each PO DAILY [facility] Stop: 10/27/18 08:59 Miscellaneous (Probiotic Screen) 1 ea PRN PRN PRN Reason: PROTOCOL Stop: 10/26/18 10:44 Miscellaneous (Vancomycin Iv Per Pharmacy) 1 ea MC PRN [facility] Stop: 10/26/18 12:14 Mupirocin (Bactroban Oint) 1 appl NS BID [facility] Stop: 08/31/18 17:01 Last Admin: 08/27/18 09:13 Dose: 1 appl Ondansetron HCl (Zofran) 4 mg IV Q6H PRN PRN Reason: Nausea / Vomiting Stop: 10/23/18 17:24 - Procedures Procedures: Procedures Procedure Code Date EXCISION OF RIGHT UPPER FEMUR, OPEN APPROACH [id number] 07/25/18 INSPECTION OF LOWER INTESTINAL TRACT, ENDO [id number] 05/20/18 REPAIR ABDOMINAL WALL, OPEN APPROACH [id number] 07/25/18 Nutritional Asmnt/Malnutr-PDOC - Dietary Evaluation Malnutrition Findings (Please click <Entered> for more info): Nutritional Asmnt/Malnutrition Start: 08/25/18 12: 55 Text: Status: Complete Freq: Protocol: Document 08/25/18 12:55 KRISTI (Rec: 08/25/18 13:22 KRISTI [email or web address]) Nutritional Asmnt/Malnutrition Patient General Information Nutritional Screening High Risk Consult Diagnosis surgical wound dihiscence Pertinent Medical Hx/Surgical Hx bi AKA, HTN, colostomy, DM, chronic pain syndrom Subjective Information Consult received for glucose level higher than 180 at admission. Pt seen lying in bed at time of visit, refused to talk with RN. Pt stated " leave me alone". Pt was on CCHO 60gm diet at admission, now is on NPO. 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%), adj IBW 142lb, adj BMI 26.6 Current Diet Order/ Nutrition Support NPO Pertinent Medications D5-0.45ns, novolog Pertinent Labs 08/25 POC 151 08/24 Na 134, glucose 221, POC 210 Nutritional Hx/Data Height 1.83 m Height (Calculated Centimeters) 182.9 Current Weight (lbs) 71.668 kg Weight (Calculated Kilograms) 71.7 Weight (Calculated Grams) 55386.6 [place] Body Weight 142 Body Mass Index (BMI) 21.4 Weight Status Overweight GI Symptoms GI Symptoms None Last BM not indicated Difficult in: None Skin Integrity/Comment: decubitus ulcer to buttocks Estimated Nutritional Goals BEE in Kcals: Using Current wt Calories/Kcals/Kg 25-30 Kcals Calculated 5655-7016 Protein: Using Current wt Protein g/k-1.2 Protein Calculated 72-86 Fluid: ml 1800-2160ml (1ml/kcal) Nutritional Problem 2. Problem Problem increased nutrition needs Etiology impaired skin integrity Signs/Symptoms: decubitus ulcer to buttocks 1. Problem Problem altered nutrition related labs Etiology hx of DM Signs/Symptoms: glucose 221, POC 151-210 Malnutrition Alert Is there a minimum of two criteria No selected? Query Text:Check all the applicable criteria. A minimum of two criteria are recommended for diagnosis of either severe or non-severe malnutrition. Intervention/Recommendation Comments 1. Resume CCHO 60gm diet when medically appropriate. Will attampt to provide nutrition education when pt available. 2. Consider adding Carlos BID as needed after wound assessment. 3. Monitor PO intake, wt, labs and skin integrity 4. F/U as high risk in 2-3 days. 08/27-08/28 Expected Outcomes/Goals Expected Outcomes/Goals 1. PO intake to meet at least 75% of nutritional needs. 2. Wt stability, skin to remain intact, labs to approach WNL.
[2018-08-27] MEDS: Meropenem 1 GM in Sodium Chloride 0.9% 100 ML IV SCH ×2 (14:25→22:10)
--- NOTE | 2018-08-27 15:58 | General Progress Note ---
Subjective - Review of Systems Events since last encounter: stage 4 right hip ulce discussed with patient regarding debridement will consider giving consen Objective - Results Result Diagrams: 08/27/18 08:43 08/27/18 08:43 Recent Labs: Laboratory Last Values WBC 7.2 Th/cmm (4.8-10.8) 08/27/18 08:43 RBC 5.80 Mil/cmm (4.30-5.70) H 08/27/18 08:43 Hgb 16.1 gm/dL (12-16) 08/27/18 08:43 Hct 48.8 % (41.0-60) 08/27/18 08:43 MCV 84.1 fl (80-99) 08/27/18 08:43 MCH 27.7 pg (26.0-30.0) 08/27/18 08:43 MCHC Differential 33.0 pg (28.0-36.0) 08/27/18 08:43 RDW 14.8 % (11.5-20.0) 08/27/18 08:43 Plt Count 300 Th/cmm (150-400) 08/27/18 08:43 MPV 7.5 fl 08/27/18 08:43 Neutrophils % 71.0 % (40.0-80.0) 08/27/18 08:43 Lymphocytes % 17.1 % (20.0-50.0) L 08/27/18 08:43 Monocytes % 8.2 % (2.0-10.0) 08/27/18 08:43 Eosinophils % 3.1 % (0.0-5.0) 08/27/18 08:43 Basophils % 0.6 % (0.0-2.0) 08/27/18 08:43 Sodium 135 mEq/L (136-145) L 08/27/18 08:43 Potassium 3.7 mEq/L (3.5-5.1) 08/27/18 08:43 Chloride 105 mEq/L (98-107) 08/27/18 08:43 Carbon Dioxide 22.2 mEq/L (21.0-31.0) 08/27/18 08:43 Anion Gap 11.5 (7.0-16.0) 08/27/18 08:43 BUN 6 mg/dL (7-25) L 08/27/18 08:43 Creatinine 0.5 mg/dL (0.7-1.3) L 08/27/18 08:43 Est GFR ( Amer) > 60.0 ml/min (>90) 08/27/18 08:43 Est GFR (Non-Af Amer) > 60.0 ml/min 08/27/18 08:43 BUN/Creatinine Ratio 12.0 08/27/18 08:43 Glucose 182 mg/dL (70-105) H 08/27/18 08:43 POC Glucose 172 MG/DL (70 - 105) H 08/27/18 05:25 Whole Bld Lactic Acid 1.58 mmol/L (0.60-1.99) 08/24/18 14:10 Calcium 9.2 mg/dL (8.6-10.3) 08/27/18 08:43 Phosphorus 3.3 mg/dL (2.5-5.0) 08/24/18 14:10 Magnesium 2.1 mg/dL (1.9-2.7) 08/24/18 14:10 Total Bilirubin 0.3 mg/dL (0.3-1.0) 08/24/18 14:10 AST 18 U/L (13-39) 08/24/18 14:10 ALT 18 U/L (7-52) 08/24/18 14:10 Alkaline Phosphatase 82 U/L (34-104) 08/24/18 14:10 Total Protein 6.9 gm/dL (6.0-8.3) 08/24/18 14:10 Albumin 3.5 gm/dL (4.2-5.5) L 08/24/18 14:10 Globulin 3.4 gm/dL 08/24/18 14:10 Albumin/Globulin Ratio 1.0 (1.0-1.8) 08/24/18 14:10 - Physical Exam Vitals and I&O: Vital Signs Temp 98.4 F 08/27/18 15:30 Pulse 88 08/27/18 15:30 Resp 18 08/27/18 15:30 BP 155/92 08/27/18 15:30 Pulse Ox 96 08/27/18 15:30 Intake & Output 08/26/18 08/27/18 08/27/18 18:59 06:59 18:59 Intake Total 3487 710 4206 Output Total 950 Balance 1300 -730 1240 Weight (lbs) 69.853 kg 69.808 kg 69.808 kg Intake: Intake, IV Amount 5565 447 7827 D5-0.45NS 1,000 ml @ 50 1000 1000 mls/hr IV .Q20H [facility] Rx#: [id number] metroNIDAZOLE 500mg/NS 100 100 100mL 500 mg In 100 ml @ 100 mls/hr IV Q12HR [facility] Rx#:[id number] Oral 200 120 240 Output: Urine 950 Other: # Voids 4 # Bowel Movements 1 Stool Characteristics Liquid Weight Source Bedscale Bedscale Bedscale Active Medications: Current Medications [place] Oil/[place] Balsam/Trypsin (Venelex) 1 appl TP DAILY [facility] Stop: 10/25/18 08:59 Last Admin: 08/27/18 08:29 Dose: 1 appl Hydromorphone HCl (Dilaudid) 1 mg IVP Q4H PRN PRN Reason: Severe Pain Stop: 10/23/18 16:04 Last Admin: 08/27/18 12:35 Dose: 1 mg Dextrose/Sodium Chloride (D5-0.45ns) 1,000 mls @ 50 mls/hr IV .Q20H [facility] Stop: 10/23/18 17:29 Last Admin: 08/27/18 12:49 Dose: 50 mls/hr Meropenem 1 gm/ Sodium (Chloride) 100 mls @ 100 mls/hr IV Q8H [facility] Stop: 10/26/18 13:59 Last Admin: 08/27/18 14:25 Dose: 100 mls/hr Vancomycin HCl 1.25 gm/ Sodium (Chloride) 250 mls @ 165 mls/hr IV Q12H [facility] Stop: 10/26/18 14:59 Last Admin: 08/27/18 15:22 Dose: 165 mls/hr Insulin Aspart (Novolog Insulin Sliding Scale) 0 units SUBQ Q6HR [facility]; Protocol Stop: 10/23/18 17:59 Last Admin: 08/27/18 12:18 Dose: Not Given Lactobacillus Rhamnosus (Culturelle 15b) 1 each PO DAILY [facility] Stop: 10/27/18 08:59 Miscellaneous (Probiotic Screen) 1 ea MC PRN PRN PRN Reason: PROTOCOL Stop: 10/26/18 10:44 Miscellaneous (Vancomycin Iv Per Pharmacy) 1 ea MC PRN [facility] Stop: 10/26/18 12:14 Mupirocin (Bactroban Oint) 1 appl NS BID [facility] Stop: 08/31/18 17:01 Last Admin: 08/27/18 09:13 Dose: 1 appl Ondansetron HCl (Zofran) 4 mg IV Q6H PRN PRN Reason: Nausea / Vomiting Stop: 10/23/18 17:24 - Procedures Procedures: Procedures Procedure Code Date EXCISION OF RIGHT UPPER FEMUR, OPEN APPROACH [id number] 07/25/18 INSPECTION OF LOWER INTESTINAL TRACT, ENDO [id number] 05/20/18 REPAIR ABDOMINAL WALL, OPEN APPROACH [id number] 07/25/18 Nutritional Asmnt/Malnutr-PDOC - Dietary Evaluation Malnutrition Findings (Please click <Entered> for more info): Nutritional Asmnt/Malnutrition Start: 08/25/18 12: 55 Text: Status: Complete Freq: Protocol: Document 08/25/18 12:55 DEVAN (Rec: 08/25/18 13:22 LCKRISTI [email or web address]) Nutritional Asmnt/Malnutrition Patient General Information Nutritional Screening High Risk Consult Diagnosis surgical wound dihiscence Pertinent Medical Hx/Surgical Hx bi AKA, HTN, colostomy, DM, chronic pain syndrom Subjective Information Consult received for glucose level higher than 180 at admission. Pt seen lying in bed at time of visit, refused to talk with RN. Pt stated " leave me alone". Pt was on CCHO 60gm diet at admission, now is on NPO. 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%), adj IBW 142lb, adj BMI 26.6 Current Diet Order/ Nutrition Support NPO Pertinent Medications D5-0.45ns, novolog Pertinent Labs 08/25 POC 151 08/24 Na 134, glucose 221, POC 210 Nutritional Hx/Data Height 1.83 m Height (Calculated Centimeters) 182.9 Current Weight (lbs) 71.668 kg Weight (Calculated Kilograms) 71.7 Weight (Calculated Grams) 35138.6 [place] Body Weight 142 Body Mass Index (BMI) 21.4 Weight Status Overweight GI Symptoms GI Symptoms None Last BM not indicated Difficult in: None Skin Integrity/Comment: decubitus ulcer to buttocks Estimated Nutritional Goals BEE in Kcals: Using Current wt Calories/Kcals/Kg 25-30 Kcals Calculated 8036-5746 Protein: Using Current wt Protein g/k-1.2 Protein Calculated 72-86 Fluid: ml 1800-2160ml (1ml/kcal) Nutritional Problem 2. Problem Problem increased nutrition needs Etiology impaired skin integrity Signs/Symptoms: decubitus ulcer to buttocks 1. Problem Problem altered nutrition related labs Etiology hx of DM Signs/Symptoms: glucose 221, POC 151-210 Malnutrition Alert Is there a minimum of two criteria No selected? Query Text:Check all the applicable criteria. A minimum of two criteria are recommended for diagnosis of either severe or non-severe malnutrition. Intervention/Recommendation Comments 1. Resume CCHO 60gm diet when medically appropriate. Will attampt to provide nutrition education when pt available. 2. Consider adding Carlos BID as needed after wound assessment. 3. Monitor PO intake, wt, labs and skin integrity 4. F/U as high risk in 2-3 days. 08/27-08/28 Expected Outcomes/Goals Expected Outcomes/Goals 1. PO intake to meet at least 75% of nutritional needs. 2. Wt stability, skin to remain intact, labs to approach WNL.
[2018-08-28] MEDS: HYDROmorphone 1 mg/mL 1mL Syr IVP PRN ×4 (04:08→15:51)
[2018-08-28] MEDS: INSULIN ASPART SLIDING SCALE 100 UNITS/ML UNIT SUBQ SCH ×2 (05:51→12:19)
[2018-08-28] MEDS: Meropenem 1 GM in Sodium Chloride 0.9% 100 ML IV SCH ×2 (06:14→14:32)
[2018-08-28 06:32] LABS: % BASOPHILS 0.7 % (0.0-2.0); % LYMPHOCYTES 21.8 % (20.0-50.0); % MONOCYTES 10.8 % (2.0-10.0); % NEUTROPHILS 61.7 % (40.0-80.0); BASOPHILE ABSOLUTE 0.1 Th/cumm (0-0.2); EOSINOPHILE ABSOLUTE 0.4 Th/cmm (0.1-0.4); HEMATOCRIT 45.8 % (41.0-60); HEMOGLOBIN 15.1 gm/dL (12-16); LYMPHOCYTE ABSOLUTE 1.8 Th/cmm (1.5-3.0); MEAN CELL VOLUME 84.7 fl (80-99); MEAN CORPUSCULAR HGB CONC 33.1 pg (28.0-36.0); MEAN PLATELET VOLUME 7.6 fl; MONOCYTE ABSOLUTE 0.9 Th/cmm (0.3-1.0); PLATELET COUNT 315 Th/cmm (150-400); RED BLOOD COUNT 5.41 Mil/cmm (4.30-5.70); RED CELL DISTRIBUTION WIDTH 15.2 % (11.5-20.0); WHITE BLOOD COUNT 8.2 Th/cmm (4.8-10.8)
[2018-08-28 06:41] LABS: INR 1.02 (0.5-1.4); PROTHROMBIN TIME (TEST) 10.6 SECONDS (9.5-11.5)
[2018-08-28 06:47] LABS: ANION GAP 11.4 (7.0-16.0); BUN - UREA NITROGEN 7 mg/dL (7-25); CARBON DIOXIDE 23.3 mEq/L (21.0-31.0); CHLORIDE 106 mEq/L (98-107); CREATININE - SERUM 0.7 mg/dL (0.7-1.3); GFR AFRICAN-AMERICAN > 60.0 ml/min (>90); GFR NON AFRICAN-AMERICAN > 60.0 ml/min; GLUCOSE 144 mg/dL (70-105); POTASSIUM SERUM 3.7 mEq/L (3.5-5.1); SODIUM SERUM 137 mEq/L (136-145)
--- NOTE | 2018-08-28 08:37 | Diagnostic Imaging Report ---
CHEST X-RAY: AP view INDICATION: Cough, preop COMPARISON: 07/30/2018 FINDINGS: There is no focal consolidation or pleural effusions The heart is normal in size. There is minimal atherosclerosis of the aortic arch. Degenerative changes of the spine are noted. IMPRESSION: No focal airspace consolidation identified Atherosclerotic vascular disease.
[2018-08-28] MEDS ORDERED: Lactobacillus Rhamnosus GG 15 Billion CFU CAP.SPRINK PO SCH (09:00)
--- NOTE | 2018-08-28 10:27 | General Progress Note ---
Subjective - Review of Systems Service Date: 08/28/18 Events since last encounter: discussed at length with brother Loy, who has POA, recommendation for debridement, wound vac or closure of stage ulcer right hi[p patient refuses, brother does not want to overrule his decision may DC- Objective - Results Result Diagrams: 08/28/18 05:45 08/28/18 05:45 Recent Labs: Laboratory Last Values WBC 8.2 Th/cmm (4.8-10.8) 08/28/18 05:45 RBC 5.41 Mil/cmm (4.30-5.70) 08/28/18 05:45 Hgb 15.1 gm/dL (12-16) 08/28/18 05:45 Hct 45.8 % (41.0-60) 08/28/18 05:45 MCV 84.7 fl (80-99) 08/28/18 05:45 MCH 28.0 pg (26.0-30.0) 08/28/18 05:45 MCHC Differential 33.1 pg (28.0-36.0) 08/28/18 05:45 RDW 15.2 % (11.5-20.0) 08/28/18 05:45 Plt Count 315 Th/cmm (150-400) 08/28/18 05:45 MPV 7.6 fl 08/28/18 05:45 Neutrophils % 61.7 % (40.0-80.0) 08/28/18 05:45 Lymphocytes % 21.8 % (20.0-50.0) 08/28/18 05:45 Monocytes % 10.8 % (2.0-10.0) H 08/28/18 05:45 Eosinophils % 5.0 % (0.0-5.0) 08/28/18 05:45 Basophils % 0.7 % (0.0-2.0) 08/28/18 05:45 PT 10.6 SECONDS (9.5-11.5) 08/28/18 05:45 INR 1.02 (0.5-1.4) 08/28/18 05:45 PTT (Actin FS) 28.6 SECONDS (26.0-38.0) 08/28/18 05:45 Sodium 137 mEq/L (136-145) 08/28/18 05:45 Potassium 3.7 mEq/L (3.5-5.1) 08/28/18 05:45 Chloride 106 mEq/L (98-107) 08/28/18 05:45 Carbon Dioxide 23.3 mEq/L (21.0-31.0) 08/28/18 05:45 Anion Gap 11.4 (7.0-16.0) 08/28/18 05:45 BUN 7 mg/dL (7-25) 08/28/18 05:45 Creatinine 0.7 mg/dL (0.7-1.3) 08/28/18 05:45 Est GFR ( Amer) > 60.0 ml/min (>90) 08/28/18 05:45 Est GFR (Non-Af Amer) > 60.0 ml/min 08/28/18 05:45 BUN/Creatinine Ratio 10.0 08/28/18 05:45 Glucose 144 mg/dL (70-105) H 08/28/18 05:45 POC Glucose 172 MG/DL (70 - 105) H 08/27/18 05:25 Whole Bld Lactic Acid 1.58 mmol/L (0.60-1.99) 08/24/18 14:10 Calcium 9.0 mg/dL (8.6-10.3) 08/28/18 05:45 Phosphorus 3.3 mg/dL (2.5-5.0) 08/24/18 14:10 Magnesium 2.1 mg/dL (1.9-2.7) 08/24/18 14:10 Total Bilirubin 0.3 mg/dL (0.3-1.0) 08/24/18 14:10 AST 18 U/L (13-39) 08/24/18 14:10 ALT 18 U/L (7-52) 08/24/18 14:10 Alkaline Phosphatase 82 U/L (34-104) 08/24/18 14:10 Total Protein 6.9 gm/dL (6.0-8.3) 08/24/18 14:10 Albumin 3.5 gm/dL (4.2-5.5) L 08/24/18 14:10 Globulin 3.4 gm/dL 08/24/18 14:10 Albumin/Globulin Ratio 1.0 (1.0-1.8) 08/24/18 14:10 - Physical Exam Vitals and I&O: Vital Signs Temp 97.4 F 08/28/18 08:00 Pulse 86 08/28/18 08:00 Resp 19 08/28/18 08:00 BP 150/80 08/28/18 08:00 Pulse Ox 97 08/28/18 08:00 Intake & Output 08/27/18 08/28/18 08/28/18 18:59 06:59 18:59 Intake Total 1590 100 Output Total 800 Balance 790 100 Weight (lbs) 69.808 kg Intake: Intake, IV Amount 1350 100 D5-0.45NS 1,000 ml @ 50 1000 mls/hr IV .Q20H [facility] Rx#: [id number] Meropenem 1 gm In Sodium 100 100 Chloride 0.9% 100 ml @ 100 mls/hr IV Q8H [facility] Rx# :[id number] Vancomycin HCl 1.25 gm In 250 Sodium Chloride 0.9% 250 ml @ 165 mls/hr IV Q12H [facility] Rx#:[id number] Oral 240 Output: Urine 800 Other: Weight Source Bedscale Active Medications: Current Medications [place] Oil/[place] Balsam/Trypsin (Venelex) 1 appl TP DAILY [facility] Stop: 10/25/18 08:59 Last Admin: 08/27/18 08:29 Dose: 1 appl Hydromorphone HCl (Dilaudid) 1 mg IVP Q4H PRN PRN Reason: Severe Pain Stop: 10/23/18 16:04 Last Admin: 08/28/18 08:11 Dose: 1 mg Dextrose/Sodium Chloride (D5-0.45ns) 1,000 mls @ 50 mls/hr IV .Q20H [facility] Stop: 10/23/18 17:29 Last Admin: 08/27/18 12:49 Dose: 50 mls/hr Meropenem 1 gm/ Sodium (Chloride) 100 mls @ 100 mls/hr IV Q8H [facility] Stop: 10/26/18 13:59 Last Admin: 08/28/18 06:14 Dose: 100 mls/hr Vancomycin HCl 1.25 gm/ Sodium (Chloride) 250 mls @ 165 mls/hr IV Q12H [facility] Stop: 10/26/18 14:59 Last Admin: 08/28/18 04:09 Dose: 165 mls/hr Insulin Aspart (Novolog Insulin Sliding Scale) 0 units SUBQ Q6HR [facility]; Protocol Stop: 10/23/18 17:59 Last Admin: 08/28/18 05:51 Dose: Not Given Lactobacillus Rhamnosus (Culturelle 15b) 1 each PO DAILY [facility] Stop: 10/27/18 08:59 Miscellaneous (Probiotic Screen) 1 ea PRN PRN PRN Reason: PROTOCOL Stop: 10/26/18 10:44 Miscellaneous (Vancomycin Iv Per Pharmacy) 1 ea MC PRN [facility] Stop: 10/26/18 12:14 Mupirocin (Bactroban Oint) 1 appl NS BID [facility] Stop: 08/31/18 17:01 Last Admin: 08/27/18 16:17 Dose: Not Given Ondansetron HCl (Zofran) 4 mg IV Q6H PRN PRN Reason: Nausea / Vomiting Stop: 10/23/18 17:24 - Procedures Procedures: Procedures Procedure Code Date EXCISION OF RIGHT UPPER FEMUR, OPEN APPROACH [id number] 07/25/18 INSPECTION OF LOWER INTESTINAL TRACT, ENDO [id number] 05/20/18 REPAIR ABDOMINAL WALL, OPEN APPROACH [id number] 07/25/18 Nutritional Asmnt/Malnutr-PDOC - Dietary Evaluation Malnutrition Findings (Please click <Entered> for more info): Nutritional Asmnt/Malnutrition Start: 08/25/18 12: 55 Text: Status: Complete Freq: Protocol: Document 08/25/18 12:55 LCHENG (Rec: 08/25/18 13:22 LCKRISTIG [email or web address]) Nutritional Asmnt/Malnutrition Patient General Information Nutritional Screening High Risk Consult Diagnosis surgical wound dihiscence Pertinent Medical Hx/Surgical Hx bi AKA, HTN, colostomy, DM, chronic pain syndrom Subjective Information Consult received for glucose level higher than 180 at admission. Pt seen lying in bed at time of visit, refused to talk with RN. Pt stated " leave me alone". Pt was on CCHO 60gm diet at admission, now is on NPO. 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%), adj IBW 142lb, adj BMI 26.6 Current Diet Order/ Nutrition Support NPO Pertinent Medications D5-0.45ns, novolog Pertinent Labs 08/25 POC 151 08/24 Na 134, glucose 221, POC 210 Nutritional Hx/Data Height 1.83 m Height (Calculated Centimeters) 182.9 Current Weight (lbs) 71.668 kg Weight (Calculated Kilograms) 71.7 Weight (Calculated Grams) 32621.6 [place] Body Weight 142 Body Mass Index (BMI) 21.4 Weight Status Overweight GI Symptoms GI Symptoms None Last BM not indicated Difficult in: None Skin Integrity/Comment: decubitus ulcer to buttocks Estimated Nutritional Goals BEE in Kcals: Using Current wt Calories/Kcals/Kg 25-30 Kcals Calculated 2475-4066 Protein: Using Current wt Protein g/k-1.2 Protein Calculated 72-86 Fluid: ml 1800-2160ml (1ml/kcal) Nutritional Problem 2. Problem Problem increased nutrition needs Etiology impaired skin integrity Signs/Symptoms: decubitus ulcer to buttocks 1. Problem Problem altered nutrition related labs Etiology hx of DM Signs/Symptoms: glucose 221, POC 151-210 Malnutrition Alert Is there a minimum of two criteria No selected? Query Text:Check all the applicable criteria. A minimum of two criteria are recommended for diagnosis of either severe or non-severe malnutrition. Intervention/Recommendation Comments 1. Resume CCHO 60gm diet when medically appropriate. Will attampt to provide nutrition education when pt available. 2. Consider adding Carlos BID as needed after wound assessment. 3. Monitor PO intake, wt, labs and skin integrity 4. F/U as high risk in 2-3 days. 08/27-08/28 Expected Outcomes/Goals Expected Outcomes/Goals 1. PO intake to meet at least 75% of nutritional needs. 2. Wt stability, skin to remain intact, labs to approach WNL.
== END 2018-08-28 16:20 | DRG 919 ==
LOC: ER 13:24 → MSI 16:10
PROVIDERS: ADMIT Internal Medicine; ATTEND Internal Medicine
DX: T81.31XA Disruption of external operation (surgical) wound, not elsewhere classified, initial encounter (principal); L89.214 Pressure ulcer of right hip, stage 4; I10 Essential (primary) hypertension; G89.4 Chronic pain syndrome; Z93.3 Colostomy status; L89.159 Pressure ulcer of sacral region, unspecified stage; L89.220 Pressure ulcer of left hip, unstageable; E11.9 Type 2 diabetes mellitus without complications; J44.9 Chronic obstructive pulmonary disease, unspecified; E78.5 Hyperlipidemia, unspecified; L89.899 Pressure ulcer of other site, unspecified stage; F25.9 Schizoaffective disorder, unspecified; F41.9 Anxiety disorder, unspecified; F32.9 Major depressive disorder, single episode, unspecified; H54.7 Unspecified visual loss; Z53.29 Procedure and treatment not carried out because of patient's decision for other reasons; Y83.8 Other surgical procedures as the cause of abnormal reaction of the patient, or of later complication, without mention of misadventure at the time of the procedure; Y92.89 Other specified places as the place of occurrence of the external cause; Z79.4 Long term (current) use of insulin; Z89.512 Acquired absence of left leg below knee; Z88.8 Allergy status to other drugs, medicaments and biological substances; Z89.511 Acquired absence of right leg below knee
CPT/HCPCS: 36415-UA; 71045-TC; 80048-TC; 80053-TC; 80202-TC; 82948-90; 83036-90; 83605; 83735-TC; 84100-TC; 85025-TC; 85610-TC; 87070-90; 90799; 96375; J0690; J0696; J1170; J1815; J2185; J3370; Q9967; X5958; Z7610

== ENCOUNTER 2018-10-03 18:14 | Inpatient (IN) | payer MEDICARE, MEDICAID ==
[2018-10-03 19:02] LABS: % EOSINOPHILS 6.3 % (0.0-5.0); % LYMPHOCYTES 13.4 % (20.0-50.0); % MONOCYTES 9.5 % (2.0-10.0); % NEUTROPHILS 70.8 % (40.0-80.0); EOSINOPHILE ABSOLUTE 0.8 Th/cmm (0.1-0.4); HEMATOCRIT 43.2 % (41.0-60); HEMOGLOBIN 14.6 gm/dL (12-16); LYMPHOCYTE ABSOLUTE 1.6 Th/cmm (1.5-3.0); MEAN CELL VOLUME 84.4 fl (80-99); MEAN CORPUSCULAR HEMOGLOBIN 28.5 pg (26.0-30.0); MEAN CORPUSCULAR HGB CONC 33.7 pg (28.0-36.0); MEAN PLATELET VOLUME 8.2 fl; MONOCYTE ABSOLUTE 1.2 Th/cmm (0.3-1.0); NEUTROPHILE ABSOLUTE 8.6 Th/cmm (1.8-8.0); PLATELET COUNT 257 Th/cmm (150-400); RED BLOOD COUNT 5.11 Mil/cmm (4.30-5.70); RED CELL DISTRIBUTION WIDTH 14.8 % (11.5-20.0); WHITE BLOOD COUNT 12.2 Th/cmm (4.8-10.8)
--- NOTE | 2018-10-03 19:02 | ED Physician Chart ---
ED Chief Complaint/HPI - Patient Information Date Seen:: 10/03/18 Time Seen:: 18:27 Chief Complaint:: HEAD TRAUMA History of Present Illness:: THIS PATIENT [facility] S[facility] FOR AN EVALUATION AND TREATMENT FOR HEAD TRAUMA HE SUSTAINED AT 0630 THIS AM. HE DID NOT LOOSE CONSCIOUSNESS. HE SUSTAINED A SMALL LEFT EYEBROW LACERATION. Allergies:: Allergies Allergy/AdvReac Type Severity Reaction Status Date / Time permethrin [From Elimite] Allergy Verified 08/24/18 13:38 pineapple Allergy Verified 10/03/18 18:20 mushroom AdvReac Verified 08/24/18 13:38 strawberry AdvReac Verified 08/24/18 13:38 Vitals:: Vital Signs - 8 hr 10/03/18 18:20 Temp 98.4 F HR 89 RR 19 BP 181/81 O2 Sat % 95 Historian:: Patient, Medical Records Review:: Nurse's Note Reviewed, Old Chart Reviewed, Transfer documents Reviewed ED Review of Systems - Review of Systems General/Constitutional: No fever, No chills, No weight loss, No weakness, No diaphoresis, No edema, No loss of appetite Skin: No skin lesions, No rash, No bruising, Other (LEFT EYEBROW LACERATION (OLD )) Head: No headache, No light-headedness Eyes: No loss of vision, No pain, No diplopia ENT: No earache, No nasal drainage, No sore throat, No tinnitus Neck: No neck pain, No swelling, No thyromegaly, No stiffness, No mass noted Cardio Vascular: No chest pain, No palpitations, No PND, No orthopnea, No edema Pulmonary: No SOB, No cough, No sputum, No wheezing GI: No nausea, No vomiting, No diarrhea, No pain, No melena, No hematochezia, No constipation, No hematemesis G/U: No dysuria, No frequency, No hematuria Musculoskeletal: No bone or joint pain, No back pain, No muscle pain Endocrine: No polyuria, No polydipsia Psychiatric: No prior psych history, No depression, No anxiety, No suicidal ideation Hematopoietic: No bruising, No lymphadenopathy Allergic/Immuno: No urticaria, No angioedema Neurological: No syncope, No focal symptoms, No weakness, No paresthesia, No headache, No seizure, No dizziness, No confusion, No vertigo ED Past Medical History - Past Medical History Obtainable: Yes Past Medical History: HTN, DM, Asthma/COPD Family History: None Social History: Non Smoker, No Alcohol, No Drug Use, Single, Care Facility Surgical History: other (BILSY) Psychiatricy History: None Medication: Reviewed Family Medical History - Family Member Mother History Unknown: Yes Ethnicity: Non- Living Status: Unknown Hx Family COPD: Yes ED Physical Exam - Physical Examination General/Constitutional: Awake, Well-developed, well-nourished, Alert, No distress, GCS 15, Non-toxic appearing, Ambulatory Head: Atraumatic (THERE IS A 2 CM ON THE LEFT EYEBROW (old)) Eyes: Lids, conjuctiva normal, PERRL, EOMI Skin: Nl inspection, No rash, No skin lesions, No ecchymosis, Well hydrated, No lymphadenopathy ENMT: External ears, nose nl, Nasal exam nl, Lips, teeth, gums nl Neck: Nontender, Full ROM w/o pain, No JVD, No nuchal rigidity, No bruit, No mass, No stridor Respiratory: Nl effort/Exclusion, Clear to Auscultation, No Wheeze/Rhonchi/Rales Cardio Vascular: RRR, No murmur, gallop, rubs, NL S1 S2 GI: No tenderness/rebounding/guarding, No organomegaly, No hernia, Normal BS's, Nondistended, No mass/bruits, No McBurney tenderness Other GI comments:: there are bilateral decubiti grade 4 : No CVA tenderness Extremities: No tenderness or effusion, Full ROM, normal strength in all extremities, No edema, Normal digits & nails Other Extremities comments:: bilateral aka of the lower extremities Neuro/Psych: Alert/oriented, DTR's symmetric, Normal sensory exam, Normal motor strength, Judgement/insight normal, Mood normal, Normal gait, No focal deficits Misc: Normal back, No paraspinal tenderness ED Labs/Radiology/EKG Results - Lab Results Results: Abnormal Lab Results 10/03/18 18:50 WBC 12.2 H RBC 5.11 Hgb 14.6 Hct 43.2 MCV 84.4 MCH 28.5 MCHC Differential 33.7 RDW 14.8 Plt Count 257 MPV 8.2 Neutrophils % 70.8 Lymphocytes % 13.4 L Monocytes % 9.5 Eosinophils % 6.3 H Basophils % 0.0 - Radiology Results Results: ct scan of the head = nad - EKG Interpretations EKG Time:: 18:51 Rate & Rhythm: rate 87, sinus [place]: right axis ED Assessment - Assessment General Assessment: head trauma ED Septic Shock - . Is Septic Shock (SBP<90, OR Lactate>4 mmol\L) present?: No - <6hrs of presentation: Vital Signs: Vital Signs - 8 hr 10/03/18 18:20 Temp 98.4 F HR 89 RR 19 BP 181/81 O2 Sat % 95 ED Reassessment (Disposition) - Diagnosis Diagnosis:: head trauma decubti ulcers elevated white cells renal failure diabetes mellitus - Patient Disposition Discharge/Transfer:: Acute Care w/in this hosp Admitting Psych Physician:: Yunier Kraft Condition at Disposition:: Improved
[2018-10-03] MEDS ORDERED: Sodium Chloride 0.9% 1,000 ML IV ONE (20:14)
[2018-10-03 20:23] LABS: ALB/GLOB RATIO 1.3 (1.0-1.8); ALBUMIN 3.9 gm/dL (4.2-5.5); BILIRUBIN,TOTAL 0.3 mg/dL (0.3-1.0); CALCIUM SERUM 9.8 mg/dL (8.6-10.3); CREATININE - SERUM 2.1 mg/dL (0.7-1.3); GFR AFRICAN-AMERICAN 42.2 ml/min (>90); GFR NON AFRICAN-AMERICAN 34.9 ml/min; TOTAL PROTEIN,SERUM 6.9 gm/dL (6.0-8.3)
[2018-10-03 22:18] VITALS: BP 148/91
[2018-10-03] MEDS ORDERED: Acetaminophen 500 MG TAB PO PRN (22:53)
[2018-10-04] MEDS: Sodium Chloride 0.45% 1,000 ML IV SCH ×3 (00:10→18:18)
[2018-10-04] MEDS: INSULIN ASPART SLIDING SCALE 100 UNITS/ML UNIT SUBQ SCH ×4 (00:11→18:17)
[2018-10-04] MEDS: HYDROmorphone 1 mg/mL 1mL Syr IVP PRN ×2 (02:46→07:30)
[2018-10-04 07:51] LABS: % BASOPHILS 0.2 % (0.0-2.0); % EOSINOPHILS 7.2 % (0.0-5.0); % LYMPHOCYTES 17.7 % (20.0-50.0); % MONOCYTES 8.8 % (2.0-10.0); % NEUTROPHILS 66.1 % (40.0-80.0); EOSINOPHILE ABSOLUTE 0.7 Th/cmm (0.1-0.4); HEMATOCRIT 43.3 % (41.0-60); HEMOGLOBIN 14.2 gm/dL (12-16); LYMPHOCYTE ABSOLUTE 1.8 Th/cmm (1.5-3.0); MEAN CELL VOLUME 84.6 fl (80-99); MEAN CORPUSCULAR HEMOGLOBIN 27.7 pg (26.0-30.0); MEAN CORPUSCULAR HGB CONC 32.7 pg (28.0-36.0); MEAN PLATELET VOLUME 8.5 fl; MONOCYTE ABSOLUTE 0.9 Th/cmm (0.3-1.0); NEUTROPHILE ABSOLUTE 6.9 Th/cmm (1.8-8.0); PLATELET COUNT 267 Th/cmm (150-400); RED BLOOD COUNT 5.12 Mil/cmm (4.30-5.70); RED CELL DISTRIBUTION WIDTH 14.9 % (11.5-20.0); WHITE BLOOD COUNT 10.3 Th/cmm (4.8-10.8)
[2018-10-04 08:03] LABS: ANION GAP 12.9 (7.0-16.0); CALCIUM SERUM 9.1 mg/dL (8.6-10.3); CARBON DIOXIDE 23.6 mEq/L (21.0-31.0); CREATININE - SERUM 2.1 mg/dL (0.7-1.3); GFR AFRICAN-AMERICAN 42.2 ml/min (>90); GFR NON AFRICAN-AMERICAN 34.9 ml/min; POTASSIUM SERUM 4.5 mEq/L (3.5-5.1)
[2018-10-04] MEDS ORDERED: Non-Formulary Item 1 EA (Amino Acids/Protein Hydrolys [Pro-Stat Sugar Free Liquid] 30 ML) PO SCH (09:00)
--- NOTE | 2018-10-04 09:37 | Diagnostic Imaging Report ---
Head CT without intravenous contrast Indication: Trauma Comparison: None Technique: Axial images were obtained from the vertex to the skull base without IV contrast. Coronal reconstructions were made. Total DLP: 722, CTDI38.3 FINDINGS: Images of the brain obtained without contrast demonstrate no evidence of an acute hemorrhage. The ventricles and basal cisterns are patent. The mosqueda-white matter differentiation is preserved. No mass effect or midline shift. Diffuse atherosclerosis is noted. No evidence of a skull fracture or focal soft tissue swelling. There is leftward deviation of the nasal septum. The paranasal sinuses are clear. IMPRESSION: No acute intracranial abnormality. Atherosclerotic vascular disease. Leftward deviated nasal septum.
[2018-10-04] MEDS: HYDROmorphone 2 mg/mL 1mL Vial IVP PRN ×4 (10:24→21:35)
[2018-10-04] MEDS ORDERED: HYDROmorphone 2 mg/mL 1mL Vial IM PRN (14:40)
[2018-10-04] MEDS ORDERED: Magnesium Hydroxide (MOM) 30 mL UDC PO PRN (14:40)
[2018-10-04] MEDS ORDERED: INSULIN ASPART SLIDING SCALE 100 UNITS/ML UNIT SUBQ SCH (16:30)
[2018-10-04] MEDS ORDERED: Non-Formulary Item 1 EA (Cran/Vitc/Mannose/Fos/Bromeln [Uti-Stat Liquid] 30 ML) PO SCH (17:00)
--- NOTE | 2018-10-04 17:17 | General Progress Note ---
Subjective - Review of Systems Service Date: 10/04/18 Events since last encounter: had wound vac applied 2 months ago, discontinued at [facility] deep ulcer with trochanter at base discussed with patient and brother via phone about need for surgery, brother agrees with patient signs consent Objective - Results Result Diagrams: 10/04/18 07:20 10/04/18 07:20 Recent Labs: Laboratory Last Values WBC 10.3 Th/cmm (4.8-10.8) 10/04/18 07:20 RBC 5.12 Mil/cmm (4.30-5.70) 10/04/18 07:20 Hgb 14.2 gm/dL (12-16) 10/04/18 07:20 Hct 43.3 % (41.0-60) 10/04/18 07:20 MCV 84.6 fl (80-99) 10/04/18 07:20 MCH 27.7 pg (26.0-30.0) 10/04/18 07:20 MCHC Differential 32.7 pg (28.0-36.0) 10/04/18 07:20 RDW 14.9 % (11.5-20.0) 10/04/18 07:20 Plt Count 267 Th/cmm (150-400) 10/04/18 07:20 MPV 8.5 fl 10/04/18 07:20 Neutrophils % 66.1 % (40.0-80.0) 10/04/18 07:20 Lymphocytes % 17.7 % (20.0-50.0) L 10/04/18 07:20 Monocytes % 8.8 % (2.0-10.0) 10/04/18 07:20 Eosinophils % 7.2 % (0.0-5.0) H 10/04/18 07:20 Basophils % 0.2 % (0.0-2.0) 10/04/18 07:20 Sodium 136 mEq/L (136-145) 10/04/18 07:20 Potassium 4.5 mEq/L (3.5-5.1) 10/04/18 07:20 Chloride 104 mEq/L (98-107) 10/04/18 07:20 Carbon Dioxide 23.6 mEq/L (21.0-31.0) 10/04/18 07:20 Anion Gap 12.9 (7.0-16.0) 10/04/18 07:20 BUN 28 mg/dL (7-25) H 10/04/18 07:20 Creatinine 2.1 mg/dL (0.7-1.3) H 10/04/18 07:20 Est GFR ( Amer) 42.2 ml/min (>90) 10/04/18 07:20 Est GFR (Non-Af Amer) 34.9 ml/min 10/04/18 07:20 BUN/Creatinine Ratio 13.3 10/04/18 07:20 Glucose 99 mg/dL (70-105) 10/04/18 07:20 POC Glucose 114 MG/DL (70 - 105) H 10/04/18 11:50 Calcium 9.1 mg/dL (8.6-10.3) 10/04/18 07:20 Total Bilirubin 0.3 mg/dL (0.3-1.0) 10/03/18 18:50 AST 19 U/L (13-39) 10/03/18 18:50 ALT 12 U/L (7-52) 10/03/18 18:50 Alkaline Phosphatase 77 U/L (34-104) 10/03/18 18:50 Troponin I 0.05 ng/mL (0.01-0.05) 10/03/18 18:50 Total Protein 6.9 gm/dL (6.0-8.3) 10/03/18 18:50 Albumin 3.9 gm/dL (4.2-5.5) L 10/03/18 18:50 Globulin 3.0 gm/dL 10/03/18 18:50 Albumin/Globulin Ratio 1.3 (1.0-1.8) 10/03/18 18:50 TSH 0.44 uIU/ml (0.34-5.60) 10/03/18 18:50 - Physical Exam Vitals and I&O: Vital Signs Temp 98 F 10/04/18 12:00 Pulse 76 10/04/18 12:00 Resp 15 10/04/18 15:00 BP 129/92 10/04/18 12:00 Pulse Ox 98 10/04/18 12:00 Intake & Output 10/03/18 10/04/18 10/04/18 18:59 06:59 18:59 Intake Total 785.417 Balance 785.417 Weight (lbs) 68.039 kg 68.039 kg Intake: Intake, IV Amount 785.417 Sodium Chloride 0.45% 1, 785.417 000 ml @ 125 mls/hr IV . Q8H [facility] Rx#:[id number] Other: Weight Source Estimated Active Medications: Current Medications Acetaminophen (Tylenol Extra Strength) 1,000 mg PO Q4HR PRN PRN Reason: Pain (Moderate) LEVEL 4-6 Stop: 12/02/18 22:52 Acetaminophen (Tylenol) 650 mg PO DAILY [facility] Stop: 12/03/18 08:59 Last Admin: 10/04/18 12:07 Dose: Not Given Acetaminophen (Tylenol) 650 mg PO Q4H PRN PRN Reason: MILD PAIN OR TEMP >101 Amitriptyline HCl (Elavil) 50 mg PO HS [facility] Stop: 12/03/18 20:59 Amitriptyline HCl (Elavil) 50 mg PO ONCE ONE; Protocol Stop: 10/04/18 21:01 Ascorbic Acid (Vitamin C) 500 mg PO DAILY [facility] Stop: 12/04/18 08:59 Aspirin (Aspirin Chewable) 81 mg PO DAILY [facility] Stop: 12/04/18 08:59 Baclofen (Lioresal) 10 mg PO Q8H [facility] Stop: 12/03/18 15:59 Cholecalciferol (Vitamin D3) 1,000 iu PO DAILY [facility] Stop: 12/04/18 08:59 Docusate Sodium (Colace) 100 mg PO DAILY [facility] Stop: 12/04/18 08:59 Hydromorphone HCl (Dilaudid) 2 mg IVP Q4HR PRN PRN Reason: Severe Pain Stop: 12/03/18 08:43 Last Admin: 10/04/18 14:22 Dose: 2 mg Ceftriaxone Sodium 1 gm/ (Sodium Chloride) 50 mls @ 100 mls/hr IV Q24HR [facility] Stop: 12/03/18 20:59 Sodium Chloride (Nacl 0.45%) 1,000 mls @ 125 mls/hr IV .Q8H [facility] Stop: 12/02/18 22:12 Last Admin: 10/04/18 06:27 Dose: 125 mls/hr Tobramycin Sulfate 120 mg/ (Sodium Chloride) 103 mls @ 100 mls/hr IV Q24HR [facility] Stop: 12/03/18 20:59 Insulin Aspart (Novolog Insulin Sliding Scale) 0 units SUBQ Q6HR [facility]; Protocol Stop: 12/03/18 00:00 Last Admin: 10/04/18 12:06 Dose: Not Given Lisinopril (Zestril) 10 mg PO DAILY [facility] Stop: 12/04/18 08:59 Magnesium Hydroxide (Milk Of Magnesia) 30 ml PO HS PRN PRN Reason: Constipation Stop: 12/03/18 14:39 Miscellaneous (Collagenase Clostridium Hist. [Santyl]) 1 appl TP DAILY [facility] Stop: 12/04/18 08:59 Miscellaneous (Duloxetine Hcl [Cymbalta]) 20 mg PO DAILY [facility] Stop: 12/04/18 08:59 Miscellaneous (Tobramycin Iv Per Pharmacy) 1 ea MC PRN PRN PRN Reason: RX DOSING Stop: 12/03/18 16:04 Ondansetron HCl (Zofran) 4 mg IV Q6H PRN PRN Reason: Nausea / Vomiting Stop: 12/02/18 22:12 Pregabalin (Lyrica) 150 mg PO BID [facility] Stop: 12/03/18 16:59 - Procedures Procedures: Procedures Procedure Code Date EXCISION OF RIGHT UPPER FEMUR, OPEN APPROACH [id number] 07/25/18 INSPECTION OF LOWER INTESTINAL TRACT, ENDO [id number] 05/20/18 REPAIR ABDOMINAL WALL, OPEN APPROACH [id number] 07/25/18 Assessment/Plan - Problem List Patient Problems: All Active Problems FALL WITH LACERATION TO LEFT FRONTAL (Acute)
--- NOTE | 2018-10-04 17:24 | History & Physical ---
ADMIT DATE: 10/04/2018 HISTORY OF PRESENT ILLNESS: Very well-known patient for me. The patient is known to have history of hypertension, history of diabetes, history of depression and history of bilateral pneumonia, resident of [facility]. Apparently, the patient was trying to get to the bed and he slipped, fell down, hit his head and sustained a trauma, complaining of a big laceration on his left eyebrow, came to the Emergency Room, was seen. Also found to have a decubitus infected and white count elevation. The patient was admitted, both for sepsis as well as for the head trauma. REVIEW OF SYSTEMS: Essentially complaining of pain to the right eyebrow area. The patient complains of decubitus. PAST MEDICAL HISTORY: Hypertension, diabetes, asthma, COPD and bilateral above-knee amputation. PHYSICAL EXAMINATION: GENERAL: Alert, oriented male, not in acute distress. VITAL SIGNS: Noted. HEAD: Normal. ENT: Normal. NECK: Supple and nontender. LUNGS: Clear. CARDIOVASCULAR SYSTEM: S1 and S2 heard. ABDOMEN: Soft. Bilateral pneumonia and hypertension as well as decubitus. LABORATORY DATA: His white count is 12.24. DIAGNOSES: 1. Head trauma. 2. History of fall. 3. Decubitus ulcer, infected. 4. Elevated white cells with leukocytosis. 5. Renal failure. 6. Diabetes mellitus. PLAN: The patient is going to be admitted and I will go ahead and give him some antibiotics and have Dr. Garcia see the patient as well and Dr. Stoll see the patient and Dr. Waters for consult. JOB# [id number]
[2018-10-04] MEDS: cefTRIAXone 1 GM in Sodium Chloride 0.9% 50 ML IV SCH (21:04)
[2018-10-05 00:38] LABS: URINE SOURCE CLEAN C
[2018-10-05] MEDS: HYDROmorphone 2 mg/mL 1mL Vial IVP PRN ×8 (00:47→23:24)
[2018-10-05] MEDS: INSULIN ASPART SLIDING SCALE 100 UNITS/ML UNIT SUBQ SCH ×5 (01:05→20:57)
[2018-10-05 01:26] LABS: URINE BILIRUBIN NEGATIVE (NEGATIVE); URINE BLOOD NEGATIVE (NEGATIVE); URINE GLUCOSE (UA) NEGATIVE (NEGATIVE); URINE KETONE NEGATIVE (NEGATIVE); URINE LEUKOCYTE ESTERASE SMALL (NEGATIVE); URINE NITRATE NEGATIVE (NEGATIVE); URINE PH 5.5 (4.6 - 8.0); URINE PROTEIN NEGATIVE (NEGATIVE); URINE UROBILINOGEN 0.2 E.U./dL (0.2 - 1.0)
[2018-10-05 01:41] LABS: URINE CLARITY HAZY (CLEAR); URINE COLOR YELLOW; URINE MICROSCOPIC INDICATED? YES
[2018-10-05 01:42] LABS: URINE RBC 0-2 /hpf (0-5)
[2018-10-05 01:43] LABS: URINE BACTERIA MODERATE /hpf (NONE SEEN); URINE EPITHELIAL CELLS NONE SEEN /lpf (FEW)
[2018-10-05 05:49] LABS: HEMATOCRIT 38.9 % (41.0-60); MEAN CELL VOLUME 84.7 fl (80-99); MEAN CORPUSCULAR HEMOGLOBIN 28.4 pg (26.0-30.0); MEAN CORPUSCULAR HGB CONC 33.5 pg (28.0-36.0); RED BLOOD COUNT 4.59 Mil/cmm (4.30-5.70); WHITE BLOOD COUNT 9.8 Th/cmm (4.8-10.8)
[2018-10-05 05:58] LABS: PLATELET COUNT 176 Th/cmm (150-400)
[2018-10-05 06:19] LABS: ANION GAP 11.7 (7.0-16.0); CALCIUM SERUM 8.5 mg/dL (8.6-10.3); CARBON DIOXIDE 22.8 mEq/L (21.0-31.0); CREATININE - SERUM 1.9 mg/dL (0.7-1.3); GFR AFRICAN-AMERICAN 47.4 ml/min (>90); GFR NON AFRICAN-AMERICAN 39.2 ml/min; MAGNESIUM 1.9 mg/dL (1.9-2.7); PHOSPHOROUS 4.2 mg/dL (2.5-5.0); POTASSIUM SERUM 4.5 mEq/L (3.5-5.1)
[2018-10-05 07:01] LABS: BAND NEUTROPHILE 1 % (0-10); BASOPHIL 0 % (0-3); EOSINOPHIL 8 % (0-5); LYMPHOCYTE 20 % (20-50); MONOCYTE 6 % (2-10); NEUTROPHILS 65 % (40-80)
--- NOTE | 2018-10-05 07:31 | Consultation ---
DATE OF CONSULTATION: 10/04/2018 REASON FOR CONSULTATION: Worsening kidney function, electrolyte imbalance, and fluid management. HISTORY OF PRESENT ILLNESS: This is a 57-year-old male with past medical history of essential hypertension, who was brought in because of a fall from his wheelchair. A few hours prior to admission, the patient was reaching for his urinal while sitting on his wheelchair. It turned out that his wheelchair was not locked and the chair moved. He fell and hit his left forehead. There was no loss of consciousness, but he was brought to the Emergency Room. He sustained a small left periorbital laceration. Temperature was 98.4 with a white count of 12.2. CT scan of the head showed no acute abnormality. Labs drawn 4 days ago revealed a BUN/creatinine of 60/1.17. His vancomycin level at that time was 24.9. His BUN/creatinine upon admission this time were 31/2.1. He had no nausea and vomiting as well as diarrhea. PAST MEDICAL HISTORY: 1. Bilateral hip ulcers. 2. Depression/anxiety disorders. 3. Type 2 diabetes mellitus. 4. Chronic obstructive pulmonary disease. 5. Dyslipidemia. 6. Essential hypertension. 7. Paranoid schizophrenia. 8. Peripheral arterial disease. CURRENT MEDICATIONS: Currently on acetaminophen, amino acids, amitriptyline, aspirin, baclofen, ceftriaxone, cholecalciferol, collagenase, cranberry fruit, docusate sodium, duloxetine, hydromorphone, insulin aspart, lisinopril, magnesium hydroxide, ondansetron, tobramycin, and pregabalin. ALLERGIES: PERMETHRIN. SOCIAL AND FAMILY HISTORY: Denied any history of alcohol or tobacco use. Currently resides in extended care facility. FAMILY HISTORY: Noncontributory to present illness. REVIEW OF SYSTEMS: GENERAL: He does have weakness. Appetite had been fair. No fever or chills. HEENT: No mention of headache, dizziness, nor lightheadedness. CARDIORESPIRATORY: He has a history of hypertension, COPD, peripheral arterial disease. At this point, no shortness of breath, chest pain, palpitations, diaphoresis, or cough. GASTROINTESTINAL: No nausea, vomiting, abdominal pain or cramping, hematemesis, melena, hematochezia, or diarrhea. ENDOCRINE: History of diabetes and dyslipidemia. No thyroid abnormalities. MUSCULOSKELETAL: Multiple joint arthralgias. GENITOURINARY: No history of kidney failure, but developed acute kidney injury. No dysuria nor hematuria. NEUROPSYCH: Has a history of paranoid schizophrenia, depression/anxiety, and neuropathy. PHYSICAL EXAMINATION: GENERAL: The patient is alert, verbal, oriented, has a slight laceration in the superior left eyebrow. HEENT: Atraumatic with small left eyebrow laceration. Eyes: Extraocular muscles intact. [place] conjunctivae. Nose, midline nasal septum. Mouth: Dry mucosa, adequate dentition. NECK: Supple, no adenopathy, no thyromegaly, no bruits. Trachea palpated in the midline. CHEST AND CARDIOVASCULAR: S1, S2. No rub, murmur, nor gallop appreciated. Point of maximal impulse fifth intercostal space, left midclavicular line. No abdominal or femoral bruits appreciated. LUNGS: Equal expansion. No use of accessory muscles. No supraclavicular retractions. Decreased breath sounds, clear to auscultation without any wheeze. ABDOMEN: Flat, soft, positive for bowel sounds. No bruits either diastolic or systolic. He has a clean left lower quadrant colostomy bag. RECTAL: The patient refused. GENITOURINARY: Normal appearing male genitalia. MUSCULOSKELETAL: No effusions present in his joints, but unable to assess his range of motion. EXTREMITIES: He has bilateral AKA, also decubitus ulcers on both hips. Palpable femoral pulses. NEUROLOGIC: The patient is alert, verbal, motor is 5/5. Cranial nerves III through XII intact. Sensory intact. LABORATORY DATA AND STUDIES: Did reveal white count 10.3, hemoglobin 14.2, hematocrit 43.3, and platelets is 267. Sodium 136, potassium 4.5, chloride 104, CO2 23, BUN 28, creatinine 2.1, glucose is 99, albumin is 3.9. TSH 0.44. IMPRESSION: 1. Acute kidney injury. The patient developed vancomycin toxicity, which probably is the main cause of his acute kidney injury. Also, need to consider the effect of tobramycin. 2. Status post fall without any altered level of consciousness. 3. Small left eyebrow laceration with contusion. 4. Diabetic neuropathy. 5. Bilateral hip ulcers. 6. Depression/anxiety disorder. 7. Type 2 diabetes mellitus. 8. Essential hypertension. 9. Chronic obstructive pulmonary disease. 10. Dyslipidemia. 11. Paranoid schizophrenia. 12. Peripheral arterial disease, status post bilateral above knee amputation. PLAN: 1. Continue with IV fluids. 2. Follow up vancomycin and tobramycin levels. 3. Urinalysis. 4. Urine spot sodium and creatinine. 5. Renal ultrasound. 6. Urine microalbumin to creatinine ratio. 7. Follow up electrolytes. 8. I am aware that the patient is on lisinopril, but if kidney function continues to deteriorate, we will proceed to discontinuing lisinopril. [facility]# [id number]
[2018-10-05 08:17] LABS: EOSINOPHIL SMEAR SOURCE URINE; EOSINOPHILS SMEAR COUNT NONE SEEN (NONE SEEN)
[2018-10-05] MEDS ORDERED: fentaNYL Citrate 100 mcg/2mL Vial ONE (08:17)
[2018-10-05] MEDS ORDERED: Propofol **SURGERY USE ONLY** 20 ML IV ONE (08:30)
[2018-10-05] MEDS ORDERED: Neostigmine 10mg/10mL Vial ONE (08:30)
--- NOTE | 2018-10-05 08:40 | Diagnostic Imaging Report ---
Chest x-ray (single view) HISTORY: Cough, preoperative The heart size is normal. Atherosclerotic calcination seen in the aorta. No focal pulmonary processes. A vascular catheter tip is seen in the region of the superior vena cava. IMPRESSION: 1. No acute focal pulmonary processes 2. Atherosclerotic vascular changes
[2018-10-05] MEDS ORDERED: COLLAGENASE CLOSTRIDIUM HIST SCH (09:00)
[2018-10-05] MEDS ORDERED: Non-Formulary Item 1 EA (Cranberry Fruit [Cranberry] 450 MG) PO SCH (09:00)
[2018-10-05] MEDS ORDERED: Non-Formulary Item 1 EA (Duloxetine Hcl [Cymbalta] 20 MG) PO SCH (09:00)
[2018-10-05] MEDS: Multivitamin w/ Minerals Tab PO SCH (10:33)
[2018-10-05] MEDS: Aspirin 81mg Chewable Tab PO SCH (10:33)
--- NOTE | 2018-10-05 10:50 | Internal Medicine Prog Note ---
Internal Medicine Subjective - Subjective Patient seen and examined:: chart reviewed, other (s/p fall ) Patient is:: awake, other (weak) Per staff patient has:: no adverse event, tolerating meds Internal Medicine Objective - Results Result Diagrams: 10/05/18 05:15 10/05/18 05:15 Recent Labs: Laboratory Last Values WBC 9.8 Th/cmm (4.8-10.8) 10/05/18 05:15 RBC 4.59 Mil/cmm (4.30-5.70) 10/05/18 05:15 Hgb 13.0 gm/dL (12-16) 10/05/18 05:15 Hct 38.9 % (41.0-60) L 10/05/18 05:15 MCV 84.7 fl (80-99) 10/05/18 05:15 MCH 28.4 pg (26.0-30.0) 10/05/18 05:15 MCHC Differential 33.5 pg (28.0-36.0) 10/05/18 05:15 RDW 15.0 % (11.5-20.0) 10/05/18 05:15 Plt Count 176 Th/cmm (150-400) D 10/05/18 05:15 MPV 9.0 fl 10/05/18 05:15 Add Manual Diff YES 10/05/18 05:15 Neutrophils % 66.1 % (40.0-80.0) 10/04/18 07:20 Band Neutrophils % 1 % (0-10) 10/05/18 05:15 Lymphocytes % 17.7 % (20.0-50.0) L 10/04/18 07:20 Monocytes % 8.8 % (2.0-10.0) 10/04/18 07:20 Eosinophils % 7.2 % (0.0-5.0) H 10/04/18 07:20 Basophils % 0.2 % (0.0-2.0) 10/04/18 07:20 Neutrophils (Manual) 65 % (40-80) 10/05/18 05:15 Lymphocytes 20 % (20-50) 10/05/18 05:15 Monocytes 6 % (2-10) 10/05/18 05:15 Eosinophils 8 % (0-5) H 10/05/18 05:15 Basophils 0 % (0-3) 10/05/18 05:15 Eos Smear Source URINE 10/05/18 00:00 Eos Smear Total Cells NONE SEEN (NONE SEEN) 10/05/18 00:00 Sodium 136 mEq/L (136-145) 10/05/18 05:15 Potassium 4.5 mEq/L (3.5-5.1) 10/05/18 05:15 Chloride 106 mEq/L (98-107) 10/05/18 05:15 Carbon Dioxide 22.8 mEq/L (21.0-31.0) 10/05/18 05:15 Anion Gap 11.7 (7.0-16.0) 10/05/18 05:15 BUN 28 mg/dL (7-25) H 10/05/18 05:15 Creatinine 1.9 mg/dL (0.7-1.3) H 10/05/18 05:15 Est GFR ( Amer) 47.4 ml/min (>90) 10/05/18 05:15 Est GFR (Non-Af Amer) 39.2 ml/min 10/05/18 05:15 BUN/Creatinine Ratio 14.7 10/05/18 05:15 Glucose 82 mg/dL (70-105) 10/05/18 05:15 POC Glucose 86 MG/DL (70 - 105) 10/05/18 05:18 Calcium 8.5 mg/dL (8.6-10.3) L 10/05/18 05:15 Phosphorus 4.2 mg/dL (2.5-5.0) 10/05/18 05:15 Magnesium 1.9 mg/dL (1.9-2.7) 10/05/18 05:15 Total Bilirubin 0.3 mg/dL (0.3-1.0) 10/03/18 18:50 AST 19 U/L (13-39) 10/03/18 18:50 ALT 12 U/L (7-52) 10/03/18 18:50 Alkaline Phosphatase 77 U/L (34-104) 10/03/18 18:50 Troponin I 0.05 ng/mL (0.01-0.05) 10/03/18 18:50 Total Protein 6.9 gm/dL (6.0-8.3) 10/03/18 18:50 Albumin 3.9 gm/dL (4.2-5.5) L 10/03/18 18:50 Globulin 3.0 gm/dL 10/03/18 18:50 Albumin/Globulin Ratio 1.3 (1.0-1.8) 10/03/18 18:50 TSH 0.44 uIU/ml (0.34-5.60) 10/03/18 18:50 Urine Source CLEAN C 10/05/18 00:00 Urine Color YELLOW 10/05/18 00:00 Urine Clarity HAZY (CLEAR) 10/05/18 00:00 Urine pH 5.5 (4.6 - 8.0) 10/05/18 00:00 Ur Specific [place] 1.015 (1.005-1.030) 10/05/18 00:00 Urine Protein NEGATIVE mg/dL (NEGATIVE) 10/05/18 00:00 Urine Glucose (UA) NEGATIVE mg/dL (NEGATIVE) 10/05/18 00:00 Urine Ketones NEGATIVE mg/dL (NEGATIVE) 10/05/18 00:00 Urine Blood NEGATIVE (NEGATIVE) 10/05/18 00:00 Urine Nitrate NEGATIVE (NEGATIVE) 10/05/18 00:00 Urine Bilirubin NEGATIVE (NEGATIVE) 10/05/18 00:00 Urine Urobilinogen 0.2 E.U./dL (0.2 - 1.0) 10/05/18 00:00 Ur Leukocyte Esterase SMALL (NEGATIVE) H 10/05/18 00:00 Urine RBC 0-2 /hpf (0-5) H 10/05/18 00:00 Urine WBC 10-25 /hpf (0-5) H 10/05/18 00:00 Ur Epithelial Cells NONE SEEN /lpf (FEW) 10/05/18 00:00 Urine Bacteria MODERATE /hpf (NONE SEEN) H 10/05/18 00:00 Ur Random Sodium 64 mmol/L 10/05/18 00:00 Urine Creatinine 69.0 mg/dl (39.0-259.0) 10/05/18 00:00 Tobramycin Trough 1.0 ug/mL (0.5-2.0) 10/04/18 16:36 Random Vancomycin 13.2 ug/mL (5.0-40.0) 10/05/18 05:15 - Physical Exam Vitals and I&O: Vital Signs Temp 98.1 F 11/12/18 08:42 Pulse 76 10/05/18 08:42 Resp 18 10/05/18 08:42 BP 153/88 10/05/18 08:42 Pulse Ox 98 10/05/18 08:42 Intake & Output 10/04/18 10/05/18 10/05/18 18:59 06:59 18:59 Intake Total 1000 50 Output Total 1500 Balance 1000 -1450 Weight (lbs) 73.981 kg Intake: Intake, IV Amount 1000 50 Sodium Chloride 0.45% 1, 1000 000 ml @ 125 mls/hr IV . Q8H [facility] Rx#:[id number] cefTRIAXone 1 gm In 50 Sodium Chloride 0.9% 50 ml @ 100 mls/hr IV Q24HR [facility] Rx#:[id number] Output: Urine 1500 Other: # Voids 2 Weight Source Bedscale Active Medications: Current Medications Acetaminophen (Tylenol Extra Strength) 1,000 mg PO Q4HR PRN PRN Reason: Pain (Moderate) LEVEL 4-6 Stop: 12/02/18 22:52 Acetaminophen (Tylenol) 650 mg PO DAILY [facility] Stop: 12/03/18 08:59 Last Admin: 10/05/18 10:32 Dose: Not Given Acetaminophen (Tylenol) 650 mg PO Q4H PRN PRN Reason: MILD PAIN OR TEMP >101 Amitriptyline HCl (Elavil) 50 mg PO HS [facility] Stop: 12/03/18 20:59 Last Admin: 10/05/18 00:22 Dose: 50 mg Ascorbic Acid (Vitamin C) 500 mg PO DAILY [facility] Stop: 12/04/18 08:59 Last Admin: 10/05/18 10:33 Dose: Not Given Aspirin (Aspirin Chewable) 81 mg PO DAILY [facility] Stop: 12/04/18 08:59 Last Admin: 10/05/18 10:33 Dose: Not Given Baclofen (Lioresal) 10 mg PO Q8H [facility] Stop: 12/03/18 15:59 Last Admin: 10/05/18 10:32 Dose: Not Given Cholecalciferol (Vitamin D3) 1,000 iu PO DAILY [facility] Stop: 12/04/18 08:59 Last Admin: 10/05/18 10:33 Dose: Not Given Docusate Sodium (Colace) 100 mg PO DAILY [facility] Stop: 12/04/18 08:59 Last Admin: 10/05/18 10:33 Dose: Not Given Hydromorphone HCl (Dilaudid) 2 mg IVP Q4HR PRN PRN Reason: Severe Pain Stop: 12/03/18 20:13 Last Admin: 10/05/18 06:40 Dose: 2 mg Ceftriaxone Sodium 1 gm/ (Sodium Chloride) 50 mls @ 100 mls/hr IV Q24HR [facility] Stop: 12/03/18 20:59 Last Infusion: 10/04/18 21:40 Dose: Infused Sodium Chloride (Nacl 0.45%) 1,000 mls @ 125 mls/hr IV .Q8H [facility] Stop: 12/02/18 22:12 Last Admin: 10/04/18 18:18 Dose: 125 mls/hr Tobramycin Sulfate 120 mg/ (Sodium Chloride) 103 mls @ 100 mls/hr IV Q24HR [facility] Stop: 12/03/18 20:59 Last Admin: 10/05/18 07:36 Dose: 100 mls/hr Insulin Aspart (Novolog Insulin Sliding Scale) 0 units SUBQ Q6HR [facility]; Protocol Stop: 12/03/18 00:00 Last Admin: 10/05/18 06:07 Dose: Not Given Lisinopril (Zestril) 10 mg PO DAILY [facility] Stop: 12/04/18 08:59 Last Admin: 10/05/18 10:33 Dose: Not Given Magnesium Hydroxide (Milk Of Magnesia) 30 ml PO HS PRN PRN Reason: Constipation Stop: 12/03/18 14:39 Miscellaneous (Collagenase Clostridium Hist. [Santyl]) 1 appl TP DAILY [facility] Stop: 12/04/18 08:59 Miscellaneous (Duloxetine Hcl [Cymbalta]) 20 mg PO DAILY [facility] Stop: 12/04/18 08:59 Miscellaneous (Tobramycin Iv Per Pharmacy) 1 ea [facility] PRN PRN PRN Reason: RX DOSING Stop: 12/03/18 16:04 Ondansetron HCl (Zofran) 4 mg IV Q6H PRN PRN Reason: Nausea / Vomiting Stop: 12/02/18 22:12 Pregabalin (Lyrica) 150 mg PO BID [facility] Stop: 12/03/18 16:59 Last Admin: 10/05/18 10:33 Dose: Not Given General: alert, other (laceration in left eyebrow) HEENT: NC/AT Neck: Supple Lungs: CTAB Cardiovascular: RRR Abdomen: soft, non-tender Extremities: clear, edema Neurological: no change - Procedures Procedures: Procedures Procedure Code Date EXCISION OF RIGHT UPPER FEMUR, OPEN APPROACH [id number] 07/25/18 INSPECTION OF LOWER INTESTINAL TRACT, ENDO [id number] 05/20/18 REPAIR ABDOMINAL WALL, OPEN APPROACH [id number] 07/25/18 Internal Medicine Assmt/Plan - Assessment Assessment: sepsis s/p fall laceration of left eyebrown head trauma decubitus ulcer infected elevated white cells with leukocytosis renal failure dm - Plan Plan: as per order sheet
[2018-10-05] MEDS: Sodium Chloride 0.45% 1,000 ML IV SCH (12:19)
[2018-10-05 13:59] LABS: INR 0.99 (0.5-1.4)
--- NOTE | 2018-10-05 14:04 | Diagnostic Imaging Report ---
Renal ultrasound HISTORY: Abnormal renal function tests The right kidney is normal in size (11.6 x 7.2 x 7.4 cm). There is an approximate 3.0 cm sonolucent lesion within the lower midportion of the kidney consistent with a cyst. No hydronephrosis. The left kidney measures 13.4 x 7.6 x 6.8 cm. 2. Sonolucent lesions are noted in the upper and lower midportion of the kidney consistent with cysts. The largest measures 3.4 cm. No hydronephrosis. No intraluminal abnormality seen within the urinary bladder. IMPRESSION: 1. Findings consistent with bilateral renal cysts 2. No hydronephrosis
--- NOTE | 2018-10-05 14:23 | General Progress Note ---
Subjective - Review of Systems Service Date: 10/05/18 Subjective: awake, slightly agitated Objective - Results Result Diagrams: 10/05/18 05:15 10/05/18 05:15 Recent Labs: Laboratory Last Values WBC 9.8 Th/cmm (4.8-10.8) 10/05/18 05:15 RBC 4.59 Mil/cmm (4.30-5.70) 10/05/18 05:15 Hgb 13.0 gm/dL (12-16) 10/05/18 05:15 Hct 38.9 % (41.0-60) L 10/05/18 05:15 MCV 84.7 fl (80-99) 10/05/18 05:15 MCH 28.4 pg (26.0-30.0) 10/05/18 05:15 MCHC Differential 33.5 pg (28.0-36.0) 10/05/18 05:15 RDW 15.0 % (11.5-20.0) 10/05/18 05:15 Plt Count 176 Th/cmm (150-400) D 10/05/18 05:15 MPV 9.0 fl 10/05/18 05:15 Add Manual Diff YES 10/05/18 05:15 Neutrophils % 66.1 % (40.0-80.0) 10/04/18 07:20 Band Neutrophils % 1 % (0-10) 10/05/18 05:15 Lymphocytes % 17.7 % (20.0-50.0) L 10/04/18 07:20 Monocytes % 8.8 % (2.0-10.0) 10/04/18 07:20 Eosinophils % 7.2 % (0.0-5.0) H 10/04/18 07:20 Basophils % 0.2 % (0.0-2.0) 10/04/18 07:20 Neutrophils (Manual) 65 % (40-80) 10/05/18 05:15 Lymphocytes 20 % (20-50) 10/05/18 05:15 Monocytes 6 % (2-10) 10/05/18 05:15 Eosinophils 8 % (0-5) H 10/05/18 05:15 Basophils 0 % (0-3) 10/05/18 05:15 Eos Smear Source URINE 10/05/18 00:00 Eos Smear Total Cells NONE SEEN (NONE SEEN) 10/05/18 00:00 PT 10.0 SECONDS (9.5-11.5) 10/05/18 05:15 INR 0.99 (0.5-1.4) 10/05/18 05:15 PTT (Actin FS) 27.2 SECONDS (26.0-38.0) 10/05/18 05:15 Sodium 136 mEq/L (136-145) 10/05/18 05:15 Potassium 4.5 mEq/L (3.5-5.1) 10/05/18 05:15 Chloride 106 mEq/L (98-107) 10/05/18 05:15 Carbon Dioxide 22.8 mEq/L (21.0-31.0) 10/05/18 05:15 Anion Gap 11.7 (7.0-16.0) 10/05/18 05:15 BUN 28 mg/dL (7-25) H 10/05/18 05:15 Creatinine 1.9 mg/dL (0.7-1.3) H 10/05/18 05:15 Est GFR ( Amer) 47.4 ml/min (>90) 10/05/18 05:15 Est GFR (Non-Af Amer) 39.2 ml/min 10/05/18 05:15 BUN/Creatinine Ratio 14.7 10/05/18 05:15 Glucose 82 mg/dL (70-105) 10/05/18 05:15 POC Glucose 83 MG/DL (70 - 105) 10/05/18 12:45 Calcium 8.5 mg/dL (8.6-10.3) L 10/05/18 05:15 Phosphorus 4.2 mg/dL (2.5-5.0) 10/05/18 05:15 Magnesium 1.9 mg/dL (1.9-2.7) 10/05/18 05:15 Total Bilirubin 0.3 mg/dL (0.3-1.0) 10/03/18 18:50 AST 19 U/L (13-39) 10/03/18 18:50 ALT 12 U/L (7-52) 10/03/18 18:50 Alkaline Phosphatase 77 U/L (34-104) 10/03/18 18:50 Troponin I 0.05 ng/mL (0.01-0.05) 10/03/18 18:50 Total Protein 6.9 gm/dL (6.0-8.3) 10/03/18 18:50 Albumin 3.9 gm/dL (4.2-5.5) L 10/03/18 18:50 Globulin 3.0 gm/dL 10/03/18 18:50 Albumin/Globulin Ratio 1.3 (1.0-1.8) 10/03/18 18:50 TSH 0.44 uIU/ml (0.34-5.60) 10/03/18 18:50 Urine Source CLEAN C 10/05/18 00:00 Urine Color YELLOW 10/05/18 00:00 Urine Clarity HAZY (CLEAR) 10/05/18 00:00 Urine pH 5.5 (4.6 - 8.0) 10/05/18 00:00 Ur Specific [place] 1.015 (1.005-1.030) 10/05/18 00:00 Urine Protein NEGATIVE mg/dL (NEGATIVE) 10/05/18 00:00 Urine Glucose (UA) NEGATIVE mg/dL (NEGATIVE) 10/05/18 00:00 Urine Ketones NEGATIVE mg/dL (NEGATIVE) 10/05/18 00:00 Urine Blood NEGATIVE (NEGATIVE) 10/05/18 00:00 Urine Nitrate NEGATIVE (NEGATIVE) 10/05/18 00:00 Urine Bilirubin NEGATIVE (NEGATIVE) 10/05/18 00:00 Urine Urobilinogen 0.2 E.U./dL (0.2 - 1.0) 10/05/18 00:00 Ur Leukocyte Esterase SMALL (NEGATIVE) H 10/05/18 00:00 Urine RBC 0-2 /hpf (0-5) H 10/05/18 00:00 Urine WBC 10-25 /hpf (0-5) H 10/05/18 00:00 Ur Epithelial Cells NONE SEEN /lpf (FEW) 10/05/18 00:00 Urine Bacteria MODERATE /hpf (NONE SEEN) H 10/05/18 00:00 Ur Random Sodium 64 mmol/L 10/05/18 00:00 Urine Creatinine 69.0 mg/dl (39.0-259.0) 10/05/18 00:00 Tobramycin Trough 1.0 ug/mL (0.5-2.0) 10/04/18 16:36 Random Vancomycin 13.2 ug/mL (5.0-40.0) 10/05/18 05:15 - Physical Exam Vitals and I&O: Vital Signs Temp 98.7 F 10/05/18 12:13 Pulse 75 10/05/18 12:13 Resp 17 10/05/18 12:13 BP 134/83 10/05/18 12:13 Pulse Ox 92 10/05/18 12:13 Intake & Output 10/04/18 10/05/18 10/05/18 18:59 06:59 18:59 Intake Total 1000 1050 Output Total 1500 Balance 1000 -450 Weight (lbs) 73.981 kg Intake: Intake, IV Amount 1000 1050 Sodium Chloride 0.45% 1, 1000 1000 000 ml @ 125 mls/hr IV . Q8H [facility] Rx#:[id number] cefTRIAXone 1 gm In 50 Sodium Chloride 0.9% 50 ml @ 100 mls/hr IV Q24HR [facility] Rx#:[id number] Output: Urine 1500 Other: # Voids 2 Weight Source Bedscale Active Medications: Current Medications Acetaminophen (Tylenol Extra Strength) 1,000 mg PO Q4HR PRN PRN Reason: Pain (Moderate) LEVEL 4-6 Stop: 12/02/18 22:52 Acetaminophen (Tylenol) 650 mg PO DAILY [facility] Stop: 12/03/18 08:59 Last Admin: 10/05/18 10:32 Dose: Not Given Acetaminophen (Tylenol) 650 mg PO Q4H PRN PRN Reason: MILD PAIN OR TEMP >101 Amitriptyline HCl (Elavil) 50 mg PO HS [facility] Stop: 12/03/18 20:59 Last Admin: 10/05/18 00:22 Dose: 50 mg Ascorbic Acid (Vitamin C) 500 mg PO DAILY [facility] Stop: 12/04/18 08:59 Last Admin: 10/05/18 10:33 Dose: Not Given Aspirin (Aspirin Chewable) 81 mg PO DAILY [facility] Stop: 12/04/18 08:59 Last Admin: 10/05/18 10:33 Dose: Not Given Baclofen (Lioresal) 10 mg PO Q8H [facility] Stop: 12/03/18 15:59 Last Admin: 10/05/18 10:32 Dose: Not Given Cholecalciferol (Vitamin D3) 1,000 iu PO DAILY [facility] Stop: 12/04/18 08:59 Last Admin: 10/05/18 10:33 Dose: Not Given Docusate Sodium (Colace) 100 mg PO DAILY [facility] Stop: 12/04/18 08:59 Last Admin: 10/05/18 10:33 Dose: Not Given Hydromorphone HCl (Dilaudid) 2 mg IVP Q4HR PRN PRN Reason: Severe Pain Stop: 12/03/18 20:13 Last Admin: 10/05/18 11:10 Dose: 2 mg Ceftriaxone Sodium 1 gm/ (Sodium Chloride) 50 mls @ 100 mls/hr IV Q24HR [facility] Stop: 12/03/18 20:59 Last Infusion: 10/04/18 21:40 Dose: Infused Sodium Chloride (Nacl 0.45%) 1,000 mls @ 125 mls/hr IV .Q8H [facility] Stop: 12/02/18 22:12 Last Admin: 10/05/18 12:19 Dose: 125 mls/hr Tobramycin Sulfate 120 mg/ (Sodium Chloride) 103 mls @ 100 mls/hr IV Q24HR [facility] Stop: 12/03/18 20:59 Last Admin: 10/05/18 07:36 Dose: 100 mls/hr Tobramycin Sulfate 120 mg/ (Sodium Chloride) 103 mls @ 100 mls/hr IV Q24HR [facility] Stop: 12/05/18 08:59 Insulin Aspart (Novolog Insulin Sliding Scale) 0 units SUBQ Q6HR [facility]; Protocol Stop: 12/03/18 00:00 Last Admin: 10/05/18 12:04 Dose: Not Given Lisinopril (Zestril) 10 mg PO DAILY [facility] Stop: 12/04/18 08:59 Last Admin: 10/05/18 10:33 Dose: Not Given Magnesium Hydroxide (Milk Of Magnesia) 30 ml PO HS PRN PRN Reason: Constipation Stop: 12/03/18 14:39 Miscellaneous (Collagenase Clostridium Hist. [Santyl]) 1 appl TP DAILY [facility] Stop: 12/04/18 08:59 Miscellaneous (Duloxetine Hcl [Cymbalta]) 20 mg PO DAILY [facility] Stop: 12/04/18 08:59 Miscellaneous (Tobramycin Iv Per Pharmacy) 1 ea [facility] PRN PRN PRN Reason: RX DOSING Stop: 12/03/18 16:04 Ondansetron HCl (Zofran) 4 mg IV Q6H PRN PRN Reason: Nausea / Vomiting Stop: 12/02/18 22:12 Pregabalin (Lyrica) 150 mg PO BID [facility] Stop: 12/03/18 16:59 Last Admin: 10/05/18 10:33 Dose: Not Given General: Alert, Mild distress HEENT: Atraumatic, Mucous membr. moist/pink Neck: Supple, +2 carotid pulse wo bruit Cardiovascular: Regular rate, Normal S1, Normal S2 Lungs: Clear to auscultation Abdomen: Bowel sounds, Soft Extremities: no Edema Neurological: Sensation intact Skin: no Rash Psych/Mental Status: Mood NL - Procedures Procedures: Procedures Procedure Code Date EXCISION OF RIGHT UPPER FEMUR, OPEN APPROACH [id number] 07/25/18 INSPECTION OF LOWER INTESTINAL TRACT, ENDO [id number] 05/20/18 REPAIR ABDOMINAL WALL, OPEN APPROACH [id number] 07/25/18 Assessment/Plan - Problem List Patient Problems: All Active Problems FALL WITH LACERATION TO LEFT FRONTAL (Acute) - Assessment Assessment: MAGDALENA S/P Fall Left Eyebrow Laceration T2DM Ess Htn Paranoid Schizo PAD S/P AKA B/L hip Ulcers S/P closure right hip wound - Plan Plan: Lab - Result Diagrams 10/05/18 05:15 10/05/18 05:15 Current Medications Acetaminophen (Tylenol Extra Strength) 1,000 mg PO Q4HR PRN PRN Reason: Pain (Moderate) LEVEL 4-6 Stop: 12/02/18 22:52 Acetaminophen (Tylenol) 650 mg PO DAILY [facility] Stop: 12/03/18 08:59 Last Admin: 10/05/18 10:32 Dose: Not Given Acetaminophen (Tylenol) 650 mg PO Q4H PRN PRN Reason: MILD PAIN OR TEMP >101 Amitriptyline HCl (Elavil) 50 mg PO HS [facility] Stop: 12/03/18 20:59 Last Admin: 10/05/18 00:22 Dose: 50 mg Ascorbic Acid (Vitamin C) 500 mg PO DAILY [facility] Stop: 12/04/18 08:59 Last Admin: 10/05/18 10:33 Dose: Not Given Aspirin (Aspirin Chewable) 81 mg PO DAILY [facility] Stop: 12/04/18 08:59 Last Admin: 10/05/18 10:33 Dose: Not Given Baclofen (Lioresal) 10 mg PO Q8H [facility] Stop: 12/03/18 15:59 Last Admin: 10/05/18 10:32 Dose: Not Given Cholecalciferol (Vitamin D3) 1,000 iu PO DAILY [facility] Stop: 12/04/18 08:59 Last Admin: 10/05/18 10:33 Dose: Not Given Docusate Sodium (Colace) 100 mg PO DAILY [facility] Stop: 12/04/18 08:59 Last Admin: 10/05/18 10:33 Dose: Not Given Hydromorphone HCl (Dilaudid) 2 mg IVP Q4HR PRN PRN Reason: Severe Pain Stop: 12/03/18 20:13 Last Admin: 10/05/18 11:10 Dose: 2 mg Ceftriaxone Sodium 1 gm/ (Sodium Chloride) 50 mls @ 100 mls/hr IV Q24HR [facility] Stop: 12/03/18 20:59 Last Infusion: 10/04/18 21:40 Dose: Infused Sodium Chloride (Nacl 0.45%) 1,000 mls @ 125 mls/hr IV .Q8H [facility] Stop: 12/02/18 22:12 Last Admin: 10/05/18 12:19 Dose: 125 mls/hr Tobramycin Sulfate 120 mg/ (Sodium Chloride) 103 mls @ 100 mls/hr IV Q24HR [facility] Stop: 12/03/18 20:59 Last Admin: 10/05/18 07:36 Dose: 100 mls/hr Tobramycin Sulfate 120 mg/ (Sodium Chloride) 103 mls @ 100 mls/hr IV Q24HR [facility] Stop: 12/05/18 08:59 Insulin Aspart (Novolog Insulin Sliding Scale) 0 units SUBQ Q6HR [facility]; Protocol Stop: 12/03/18 00:00 Last Admin: 10/05/18 12:04 Dose: Not Given Lisinopril (Zestril) 10 mg PO DAILY [facility] Stop: 12/04/18 08:59 Last Admin: 10/05/18 10:33 Dose: Not Given Magnesium Hydroxide (Milk Of Magnesia) 30 ml PO HS PRN PRN Reason: Constipation Stop: 12/03/18 14:39 Miscellaneous (Collagenase Clostridium Hist. [Santyl]) 1 appl TP DAILY [facility] Stop: 12/04/18 08:59 Miscellaneous (Duloxetine Hcl [Cymbalta]) 20 mg PO DAILY [facility] Stop: 12/04/18 08:59 Miscellaneous (Tobramycin Iv Per Pharmacy) 1 ea [facility] PRN PRN PRN Reason: RX DOSING Stop: 12/03/18 16:04 Ondansetron HCl (Zofran) 4 mg IV Q6H PRN PRN Reason: Nausea / Vomiting Stop: 12/02/18 22:12 Pregabalin (Lyrica) 150 mg PO BID [facility] Stop: 12/03/18 16:59 Last Admin: 10/05/18 10:33 Dose: Not Given Lab - Result Diagrams 10/05/18 05:15 10/05/18 05:15 Kidney fnc remain stable w/ Cr. of 1.9 continue ivf noted Vanco, Tobra levels f/u electrolytes
[2018-10-05] MEDS: Venelex 60gm Tube TP SCH (17:26)
[2018-10-05] MEDS: cefTRIAXone 1 GM in Sodium Chloride 0.9% 50 ML IV SCH (20:51)
--- NOTE | 2018-10-05 23:50 | Consultation ---
Consult Note - Consult Note Service Date: 10/05/18 Referring Physician: Yunier Kraft Consult Note: PHYSICIAN Consultation Note: Date of Admission: 10/03/18 Purpose of Consultation: Right hip wound Chief Complaint: Patient CHAPINCITO MCGEE was admitted to [facility] with INFECTED DECUBITI,LEUKOCYTOSIS. History of Present Illness: 57 year female with a past medical history of bilateral above-knee amputation, colostomy, hypertension, diabetes mellitus type 2, chronic pain syndrome brought in from detention for right hip wound. Past Medical History: bilateral above-knee amputation, colostomy, hypertension, diabetes mellitus type 2, chronic pain syndrome. Diagnoses SEPSIS, UNSPECIFIED ORGANISM (10/03/18) ELEVATED WHITE BLOOD CELL COUNT, UNSPECIFIED (10/03/18) TYPE 2 DIABETES MELLITUS WITH DIABETIC NEUROPATHY, UNSP (10/03/18) TYPE 2 DIABETES MELLITUS WITHOUT COMPLICATIONS (10/03/18) HYPERLIPIDEMIA, UNSPECIFIED (10/03/18) ESSENTIAL (PRIMARY) HYPERTENSION (10/03/18) PERIPHERAL VASCULAR DISEASE, UNSPECIFIED (10/03/18) CHRONIC OBSTRUCTIVE PULMONARY DISEASE, UNSPECIFIED (10/03/18) PRESSURE ULCER OF RIGHT ANKLE, STAGE 3 (10/03/18) PRESSURE ULCER OF LEFT ANKLE, STAGE 3 (10/03/18) PRESSURE ULCER OF UNSPECIFIED SITE, UNSPECIFIED STAGE (10/03/18) NEPHROPATHY INDUCED BY OTH DRUG/MEDS/BIOL SUBST (10/03/18) OTHER ACUTE KIDNEY FAILURE (10/03/18) ACUTE KIDNEY FAILURE, UNSPECIFIED (10/03/18) CHRONIC KIDNEY DISEASE, STAGE 2 (MILD) (10/03/18) URINARY TRACT INFECTION, SITE NOT SPECIFIED (10/03/18) WEAKNESS (10/03/18) UNSPECIFIED INJURY OF HEAD, INITIAL ENCOUNTER (10/03/18) ADVERSE EFFECT OF AMINOGLYCOSIDES, INITIAL ENCOUNTER (10/03/18) ACQUIRED ABSENCE OF RIGHT LEG BELOW KNEE (10/03/18) ACQUIRED ABSENCE OF LEFT LEG BELOW KNEE (10/03/18) COLOSTOMY STATUS (10/03/18) Allergies Allergy/AdvReac Type Severity Reaction Status Date / Time permethrin [From Elimite] Allergy Verified 08/24/18 13:38 pineapple Allergy Verified 10/03/18 18:20 mushroom AdvReac Verified 08/24/18 13:38 strawberry AdvReac Verified 08/24/18 13:38 Vital Signs Temp 98.8 F 10/05/18 20:00 Pulse 86 10/05/18 20:00 Resp 15 10/05/18 20:00 BP 141/84 10/05/18 20:00 Pulse Ox 97 10/05/18 20:00 Intake & Output 10/05/18 10/05/18 10/06/18 06:59 18:59 06:59 Intake Total 1050 600 Output Total 1500 Balance -450 600 Weight (lbs) 73.981 kg 73.981 kg Intake: Intake, IV Amount 1050 Sodium Chloride 0.45% 1, 1000 000 ml @ 125 mls/hr IV . Q8H [facility] Rx#:[id number] cefTRIAXone 1 gm In 50 Sodium Chloride 0.9% 50 ml @ 100 mls/hr IV Q24HR [facility] Rx#:[id number] Oral 600 Output: Urine 1500 Other: # Voids 2 3 # Bowel Movements 0 Weight Source Bedscale Bedscale Laboratory Results - last 24 hr 10/05/18 10/05/18 10/05/18 00:00 00:00 00:00 WBC RBC Hgb Hct MCV MCH MCHC Differential RDW Plt Count MPV Add Manual Diff Band Neutrophils % Neutrophils (Manual) Lymphocytes Monocytes Eosinophils Basophils Eos Smear Source URINE Eos Smear Total Cells NONE SEEN PT INR PTT (Actin FS) Sodium Potassium Chloride Carbon Dioxide Anion Gap BUN Creatinine Est GFR ( Amer) Est GFR (Non-Af Amer) BUN/Creatinine Ratio Glucose POC Glucose Calcium Phosphorus Magnesium Urine Source Urine Color Urine Clarity Urine pH Ur Specific [place] Urine Protein Urine Glucose (UA) Urine Ketones Urine Blood Urine Nitrate Urine Bilirubin Urine Urobilinogen Ur Leukocyte Esterase Urine RBC Urine WBC Ur Epithelial Cells Urine Bacteria Ur Random Sodium 64 Urine Creatinine 69.0 Random Vancomycin 10/05/18 10/05/18 10/05/18 00:00 00:58 05:15 WBC RBC Hgb Hct MCV MCH MCHC Differential RDW Plt Count MPV Add Manual Diff Band Neutrophils % Neutrophils (Manual) Lymphocytes Monocytes Eosinophils Basophils Eos Smear Source Eos Smear Total Cells PT INR PTT (Actin FS) Sodium 136 Potassium 4.5 Chloride 106 Carbon Dioxide 22.8 Anion Gap 11.7 BUN 28 H Creatinine 1.9 H Est GFR ( Amer) 47.4 Est GFR (Non-Af Amer) 39.2 BUN/Creatinine Ratio 14.7 Glucose 82 POC Glucose 102 Calcium 8.5 L Phosphorus 4.2 Magnesium 1.9 Urine Source CLEAN C Urine Color YELLOW Urine Clarity HAZY Urine pH 5.5 Ur Specific [place] 1.015 Urine Protein NEGATIVE Urine Glucose (UA) NEGATIVE Urine Ketones NEGATIVE Urine Blood NEGATIVE Urine Nitrate NEGATIVE Urine Bilirubin NEGATIVE Urine Urobilinogen 0.2 Ur Leukocyte Esterase SMALL H Urine RBC 0-2 H Urine WBC 10-25 H Ur Epithelial Cells NONE SEEN Urine Bacteria MODERATE H Ur Random Sodium Urine Creatinine Random Vancomycin 10/05/18 10/05/18 10/05/18 05:15 05:15 05:15 WBC 9.8 RBC 4.59 Hgb 13.0 Hct 38.9 L MCV 84.7 MCH 28.4 MCHC Differential 33.5 RDW 15.0 Plt Count 176 D MPV 9.0 Add Manual Diff YES Band Neutrophils % 1 Neutrophils (Manual) 65 Lymphocytes 20 Monocytes 6 Eosinophils 8 H Basophils 0 Eos Smear Source Eos Smear Total Cells PT 10.0 INR 0.99 PTT (Actin FS) 27.2 Sodium Potassium Chloride Carbon Dioxide Anion Gap BUN Creatinine Est GFR ( Amer) Est GFR (Non-Af Amer) BUN/Creatinine Ratio Glucose POC Glucose Calcium Phosphorus Magnesium Urine Source Urine Color Urine Clarity Urine pH Ur Specific [place] Urine Protein Urine Glucose (UA) Urine Ketones Urine Blood Urine Nitrate Urine Bilirubin Urine Urobilinogen Ur Leukocyte Esterase Urine RBC Urine WBC Ur Epithelial Cells Urine Bacteria Ur Random Sodium Urine Creatinine Random Vancomycin 13.2 10/05/18 10/05/18 10/05/18 05:18 11:22 12:45 WBC RBC Hgb Hct MCV MCH MCHC Differential RDW Plt Count MPV Add Manual Diff Band Neutrophils % Neutrophils (Manual) Lymphocytes Monocytes Eosinophils Basophils Eos Smear Source Eos Smear Total Cells PT INR PTT (Actin FS) Sodium Potassium Chloride Carbon Dioxide Anion Gap BUN Creatinine Est GFR ( Amer) Est GFR (Non-Af Amer) BUN/Creatinine Ratio Glucose POC Glucose 86 76 83 Calcium Phosphorus Magnesium Urine Source Urine Color Urine Clarity Urine pH Ur Specific [place] Urine Protein Urine Glucose (UA) Urine Ketones Urine Blood Urine Nitrate Urine Bilirubin Urine Urobilinogen Ur Leukocyte Esterase Urine RBC Urine WBC Ur Epithelial Cells Urine Bacteria Ur Random Sodium Urine Creatinine Random Vancomycin 10/05/18 10/05/18 17:02 20:44 WBC RBC Hgb Hct MCV MCH MCHC Differential RDW Plt Count MPV Add Manual Diff Band Neutrophils % Neutrophils (Manual) Lymphocytes Monocytes Eosinophils Basophils Eos Smear Source Eos Smear Total Cells PT INR PTT (Actin FS) Sodium Potassium Chloride Carbon Dioxide Anion Gap BUN Creatinine Est GFR ( Amer) Est GFR (Non-Af Amer) BUN/Creatinine Ratio Glucose POC Glucose 98 94 Calcium Phosphorus Magnesium Urine Source Urine Color Urine Clarity Urine pH Ur Specific [place] Urine Protein Urine Glucose (UA) Urine Ketones Urine Blood Urine Nitrate Urine Bilirubin Urine Urobilinogen Ur Leukocyte Esterase Urine RBC Urine WBC Ur Epithelial Cells Urine Bacteria Ur Random Sodium Urine Creatinine Random Vancomycin Home Medication Medication Instructions Recorded Type Amitriptyline HCl [Amitriptyline 50 mg PO HS 10/06/17 History HCl*] Ascorbic Acid [Vitamin C] 500 mg PO DAILY 10/06/17 History Aspirin [Aspirin Chewable] 81 mg PO DAILY 10/06/17 History Baclofen [Baclofen*] 10 mg PO Q8H 10/06/17 History Cholecalciferol (Vitamin D3) 1,000 unit PO DAILY 10/06/17 History [Vitamin D3] Docusate Sodium [Colace] 100 mg PO DAILY 10/06/17 History Duloxetine HCl [Cymbalta] 20 mg PO DAILY 10/06/17 History Lisinopril [Zestril*] 10 mg PO DAILY 10/06/17 History Magnesium Hydroxide [Milk of 30 ml PO HS PRN 10/06/17 History Magnesia] Pregabalin [Lyrica] 150 mg PO BID 10/06/17 History Acetaminophen [Tylenol Extra 1,000 mg PO Q4HR PRN 05/20/18 History Strength] HYDROmorphone [Dilaudid] 1.5 ml IM Q6H PRN 08/24/18 History Insulin Aspart Sliding Scale 0 units SUBQ ACHS 08/24/18 History [NovoLOG INSULIN SLIDING SCALE] Acetaminophen [Tylenol] 650 mg PO DAILY 10/03/18 History Acetaminophen [Tylenol] 650 mg PO Q4H PRN 10/03/18 History Amino Acids/Protein Hydrolys 30 ml PO BID 10/03/18 History [Pro-Stat Sugar Free 887 ml] Collagenase Clostridium Hist. 1 pow NA DAILY 10/03/18 History [Collagenase] Collagenase Clostridium Hist. 1 appl TP DAILY 10/03/18 History [Santyl] Cran/Vitc/Mannose/Fos/Bromeln 30 ml PO BID 10/03/18 History [Uti-Stat 887 ml] Cranberry Fruit [Cranberry] 450 mg PO DAILY 10/03/18 History Multivitamin w/ Minerals 1 tab PO DAILY 10/03/18 History [Theragran M] Tobramycin Sulfate 160 mg IJ DAILY 10/03/18 History Current Medications Generic Name Dose Route Start Last Admin Trade Name Freq PRN Reason Stop Dose Admin Acetaminophen 1,000 mg 10/03/18 22:53 Tylenol Extra Strength PO 12/02/18 22:52 Q4HR PRN Pain (Moderate) LEVEL 4-6 Acetaminophen 650 mg 10/04/18 09:00 10/05/18 10:32 Tylenol PO 12/03/18 08:59 Not Given DAILY [facility] Acetaminophen 650 mg 10/03/18 22:53 Tylenol PO Q4H PRN MILD PAIN OR TEMP >101 Amitriptyline HCl 50 mg 10/04/18 21:00 10/05/18 20:47 Elavil PO 12/03/18 20:59 50 mg HS [facility] Administration Ascorbic Acid 500 mg 10/05/18 09:00 10/05/18 10:33 Vitamin C PO 12/04/18 08:59 Not Given DAILY [facility] Aspirin 81 mg 10/05/18 09:00 10/05/18 10:33 Aspirin Chewable PO 12/04/18 08:59 Not Given DAILY [facility] Baclofen 10 mg 10/04/18 16:00 10/05/18 23:24 Lioresal PO 12/03/18 15:59 10 mg Q8H [facility] Administration [place] Oil/[place] Balsam/Trypsin 1 appl 10/05/18 17:00 10/05/18 17:26 Venelex TP 12/04/18 16:59 1 appl DAILY [facility] Administration Cholecalciferol 1,000 iu 10/05/18 09:00 10/05/18 10:33 Vitamin D3 PO 12/04/18 08:59 Not Given DAILY [facility] Docusate Sodium 100 mg 10/05/18 09:00 10/05/18 10:33 Colace PO 12/04/18 08:59 Not Given DAILY [facility] Hydromorphone HCl 2 mg 10/05/18 14:19 10/05/18 23:24 Dilaudid IVP 12/04/18 14:18 2 mg Q3H PRN Administration SEVERE PAIN Ceftriaxone Sodium 1 gm/ 50 mls @ 100 mls/hr 10/04/18 21:00 10/05/18 20:51 Sodium Chloride IV 12/03/18 20:59 100 mls/hr Q24HR [facility] Administration Sodium Chloride 1,000 mls @ 125 mls/hr 10/03/18 22:13 10/05/18 12:19 Nacl 0.45% IV 12/02/18 22:12 125 mls/hr .Q8H [facility] Administration Tobramycin Sulfate 120 mg/ 103 mls @ 100 mls/hr 10/06/18 09:00 Sodium Chloride IV 12/05/18 08:59 Q24HR [facility] Insulin Aspart 0 units 10/05/18 16:30 10/05/18 20:57 Novolog Insulin Sliding Scale SUBQ 12/04/18 16:29 Not Given ACHS [facility] Protocol Lisinopril 10 mg 10/05/18 09:00 10/05/18 10:33 Zestril PO 12/04/18 08:59 Not Given DAILY [facility] Magnesium Hydroxide 30 ml 10/04/18 14:40 Milk Of Magnesia PO 12/03/18 14:39 HS PRN Constipation Miscellaneous 20 mg 10/05/18 09:00 Duloxetine Hcl [Cymbalta] PO 12/04/18 08:59 DAILY [facility] Miscellaneous 1 ea 10/04/18 16:05 Tobramycin Iv Per Pharmacy 12/03/18 16:04 PRN PRN RX DOSING Mupirocin 1 appl 10/05/18 17:00 10/05/18 17:26 Bactroban Oint NS 10/10/18 09:01 1 appl BID [facility] Administration Ondansetron HCl 4 mg 10/03/18 22:13 Zofran IV 12/02/18 22:12 Q6H PRN Nausea / Vomiting Pregabalin 150 mg 10/04/18 17:00 10/05/18 17:26 Lyrica PO 12/03/18 16:59 150 mg BID [facility] Administration Review of Systems: A 12 point ROS was reviewed with the pertinent positive and negatives noted in the HPI. Social History Smoking Status Unknown if ever smoked Family Medical History Unknown. Physical Exam: General: Comfortable, not in distress, HEENT: Head: NC NT. Oral Cavity moist pink tongue, Eyes: Pupil PERRLA. EOMI. No pallor, no icterus. Neck: Supple, no JVD, no carotid bruit. Cardio: S1 and S2 WNL. Respiratory: CTAP Abdominal: Soft NT ND BS present. abdominal wall wound. Genital/Urinary: Extremities: Right gluteal wound closed. Left thigh wund. B/L BKA. Neurological: Alert awake. oriented x 3. Assessment: 1. right gluteal wound. closed after debridement. 2. COPD 3. bilateral above-knee amputation 4. colostomy. 5. Hypertension. 6. Diabetes mellitus type 2. 7. chronic pain syndrome. 8. Left thigh wound. 9. MRSA colonization Plan: Continue ceftriaxone. Add Vanco IV. wound care. Bactroban. Contact isolation. Thank you, Dr Kraft for involving me in taking care of this patient. Signed, Rajan Stoll M.D. [id number]
[2018-10-06] MEDS: HYDROmorphone 2 mg/mL 1mL Vial IVP PRN ×7 (02:39→21:45)
[2018-10-06] MEDS: Sodium Chloride 0.45% 1,000 ML IV SCH ×2 (02:53→15:15)
[2018-10-06] MEDS: INSULIN ASPART SLIDING SCALE 100 UNITS/ML UNIT SUBQ SCH ×4 (07:17→20:16)
[2018-10-06 08:48] LABS: % BASOPHILS 2.4 % (0.0-2.0); % MONOCYTES 7.7 % (2.0-10.0); % NEUTROPHILS 73.9 % (40.0-80.0); BASOPHILE ABSOLUTE 0.2 Th/cumm (0-0.2); EOSINOPHILE ABSOLUTE 0.4 Th/cmm (0.1-0.4); HEMATOCRIT 40.3 % (41.0-60); HEMOGLOBIN 13.4 gm/dL (12-16); LYMPHOCYTE ABSOLUTE 1.2 Th/cmm (1.5-3.0); MEAN CELL VOLUME 84.3 fl (80-99); MEAN CORPUSCULAR HEMOGLOBIN 28.1 pg (26.0-30.0); MEAN CORPUSCULAR HGB CONC 33.3 pg (28.0-36.0); MEAN PLATELET VOLUME 8.3 fl; MONOCYTE ABSOLUTE 0.7 Th/cmm (0.3-1.0); NEUTROPHILE ABSOLUTE 7.2 Th/cmm (1.8-8.0); PLATELET COUNT 242 Th/cmm (150-400); RED BLOOD COUNT 4.78 Mil/cmm (4.30-5.70); RED CELL DISTRIBUTION WIDTH 14.9 % (11.5-20.0); WHITE BLOOD COUNT 9.7 Th/cmm (4.8-10.8)
[2018-10-06] MEDS: Multivitamin w/ Minerals Tab PO SCH (09:00)
[2018-10-06 09:02] LABS: ALB/GLOB RATIO 1.2 (1.0-1.8); ALBUMIN 3.7 gm/dL (4.2-5.5); ANION GAP 12.8 (7.0-16.0); BILIRUBIN,TOTAL 0.3 mg/dL (0.3-1.0); CALCIUM SERUM 8.8 mg/dL (8.6-10.3); CARBON DIOXIDE 24.9 mEq/L (21.0-31.0); CREATININE - SERUM 1.8 mg/dL (0.7-1.3); GFR AFRICAN-AMERICAN 50.4 ml/min (>90); GFR NON AFRICAN-AMERICAN 41.7 ml/min; POTASSIUM SERUM 4.7 mEq/L (3.5-5.1); TOTAL PROTEIN,SERUM 6.8 gm/dL (6.0-8.3)
[2018-10-06] MEDS: Aspirin 81mg Chewable Tab PO SCH (09:02)
[2018-10-06] MEDS: Venelex 60gm Tube TP SCH (09:09)
--- NOTE | 2018-10-06 09:14 | General Progress Note ---
Subjective - Review of Systems Service Date: 10/06/18 Events since last encounter: 20 cc Jesse drainage labs ok Objective - Results Result Diagrams: 10/06/18 08:45 10/06/18 08:45 Recent Labs: Laboratory Last Values WBC 9.7 Th/cmm (4.8-10.8) 10/06/18 08:45 RBC 4.78 Mil/cmm (4.30-5.70) 10/06/18 08:45 Hgb 13.4 gm/dL (12-16) 10/06/18 08:45 Hct 40.3 % (41.0-60) L 10/06/18 08:45 MCV 84.3 fl (80-99) 10/06/18 08:45 MCH 28.1 pg (26.0-30.0) 10/06/18 08:45 MCHC Differential 33.3 pg (28.0-36.0) 10/06/18 08:45 RDW 14.9 % (11.5-20.0) 10/06/18 08:45 Plt Count 242 Th/cmm (150-400) 10/06/18 08:45 MPV 8.3 fl 10/06/18 08:45 Add Manual Diff YES 10/05/18 05:15 Neutrophils % 73.9 % (40.0-80.0) 10/06/18 08:45 Band Neutrophils % 1 % (0-10) 10/05/18 05:15 Lymphocytes % 12.0 % (20.0-50.0) L 10/06/18 08:45 Monocytes % 7.7 % (2.0-10.0) 10/06/18 08:45 Eosinophils % 4.0 % (0.0-5.0) 10/06/18 08:45 Basophils % 2.4 % (0.0-2.0) H 10/06/18 08:45 Neutrophils (Manual) 65 % (40-80) 10/05/18 05:15 Lymphocytes 20 % (20-50) 10/05/18 05:15 Monocytes 6 % (2-10) 10/05/18 05:15 Eosinophils 8 % (0-5) H 10/05/18 05:15 Basophils 0 % (0-3) 10/05/18 05:15 Eos Smear Source URINE 10/05/18 00:00 Eos Smear Total Cells NONE SEEN (NONE SEEN) 10/05/18 00:00 PT 10.0 SECONDS (9.5-11.5) 10/05/18 05:15 INR 0.99 (0.5-1.4) 10/05/18 05:15 PTT (Actin FS) 27.2 SECONDS (26.0-38.0) 10/05/18 05:15 Sodium 137 mEq/L (136-145) 10/06/18 08:45 Potassium 4.7 mEq/L (3.5-5.1) 10/06/18 08:45 Chloride 104 mEq/L (98-107) 10/06/18 08:45 Carbon Dioxide 24.9 mEq/L (21.0-31.0) 10/06/18 08:45 Anion Gap 12.8 (7.0-16.0) 10/06/18 08:45 BUN 26 mg/dL (7-25) H 10/06/18 08:45 Creatinine 1.8 mg/dL (0.7-1.3) H 10/06/18 08:45 Est GFR ( Amer) 50.4 ml/min (>90) 10/06/18 08:45 Est GFR (Non-Af Amer) 41.7 ml/min 10/06/18 08:45 BUN/Creatinine Ratio 14.4 10/06/18 08:45 Glucose 101 mg/dL (70-105) 10/06/18 08:45 POC Glucose 94 MG/DL (70 - 105) 10/06/18 05:48 Calcium 8.8 mg/dL (8.6-10.3) 10/06/18 08:45 Phosphorus 4.2 mg/dL (2.5-5.0) 10/05/18 05:15 Magnesium 1.9 mg/dL (1.9-2.7) 10/05/18 05:15 Total Bilirubin 0.3 mg/dL (0.3-1.0) 10/06/18 08:45 AST 17 U/L (13-39) 10/06/18 08:45 ALT 11 U/L (7-52) 10/06/18 08:45 Alkaline Phosphatase 68 U/L (34-104) 10/06/18 08:45 Troponin I 0.05 ng/mL (0.01-0.05) 10/03/18 18:50 Total Protein 6.8 gm/dL (6.0-8.3) 10/06/18 08:45 Albumin 3.7 gm/dL (4.2-5.5) L 10/06/18 08:45 Globulin 3.1 gm/dL 10/06/18 08:45 Albumin/Globulin Ratio 1.2 (1.0-1.8) 10/06/18 08:45 TSH 0.44 uIU/ml (0.34-5.60) 10/03/18 18:50 Urine Source CLEAN C 10/05/18 00:00 Urine Color YELLOW 10/05/18 00:00 Urine Clarity HAZY (CLEAR) 10/05/18 00:00 Urine pH 5.5 (4.6 - 8.0) 10/05/18 00:00 Ur Specific [place] 1.015 (1.005-1.030) 10/05/18 00:00 Urine Protein NEGATIVE mg/dL (NEGATIVE) 10/05/18 00:00 Urine Glucose (UA) NEGATIVE mg/dL (NEGATIVE) 10/05/18 00:00 Urine Ketones NEGATIVE mg/dL (NEGATIVE) 10/05/18 00:00 Urine Blood NEGATIVE (NEGATIVE) 10/05/18 00:00 Urine Nitrate NEGATIVE (NEGATIVE) 10/05/18 00:00 Urine Bilirubin NEGATIVE (NEGATIVE) 10/05/18 00:00 Urine Urobilinogen 0.2 E.U./dL (0.2 - 1.0) 10/05/18 00:00 Ur Leukocyte Esterase SMALL (NEGATIVE) H 10/05/18 00:00 Urine RBC 0-2 /hpf (0-5) H 10/05/18 00:00 Urine WBC 10-25 /hpf (0-5) H 10/05/18 00:00 Ur Epithelial Cells NONE SEEN /lpf (FEW) 10/05/18 00:00 Urine Bacteria MODERATE /hpf (NONE SEEN) H 10/05/18 00:00 Ur Random Sodium 64 mmol/L 10/05/18 00:00 Urine Creatinine 69.0 mg/dl (39.0-259.0) 10/05/18 00:00 Tobramycin Trough 1.0 ug/mL (0.5-2.0) 10/04/18 16:36 Random Vancomycin 13.2 ug/mL (5.0-40.0) 10/05/18 05:15 - Physical Exam Vitals and I&O: Vital Signs Temp 97.4 F 10/06/18 08:00 Pulse 78 10/06/18 09:04 Resp 18 10/06/18 08:00 BP 136/80 10/06/18 09:04 Pulse Ox 95 10/06/18 08:00 Intake & Output 10/05/18 10/06/18 10/06/18 18:59 06:59 18:59 Intake Total 600 1150 Balance 600 1150 Weight (lbs) 73.981 kg 73.936 kg Intake: Intake, IV Amount 1000 Sodium Chloride 0.45% 1, 1000 000 ml @ 125 mls/hr IV . Q8H [facility] Rx#:[id number] Oral 600 150 Other: # Voids 3 4 # Bowel Movements 0 0 Weight Source Bedscale Bedscale Active Medications: Current Medications Acetaminophen (Tylenol Extra Strength) 1,000 mg PO Q4HR PRN PRN Reason: Pain (Moderate) LEVEL 4-6 Stop: 12/02/18 22:52 Acetaminophen (Tylenol) 650 mg PO DAILY [facility] Stop: 12/03/18 08:59 Last Admin: 10/06/18 09:01 Dose: 650 mg Acetaminophen (Tylenol) 650 mg PO Q4H PRN PRN Reason: MILD PAIN OR TEMP >101 Amitriptyline HCl (Elavil) 50 mg PO HS [facility] Stop: 12/03/18 20:59 Last Admin: 10/05/18 20:47 Dose: 50 mg Ascorbic Acid (Vitamin C) 500 mg PO DAILY [facility] Stop: 12/04/18 08:59 Last Admin: 10/06/18 09:00 Dose: 500 mg Aspirin (Aspirin Chewable) 81 mg PO DAILY [facility] Stop: 12/04/18 08:59 Last Admin: 10/06/18 09:02 Dose: 81 mg Baclofen (Lioresal) 10 mg PO Q8H [facility] Stop: 12/03/18 15:59 Last Admin: 10/06/18 09:01 Dose: 10 mg [place] Oil/[place] Balsam/Trypsin (Venelex) 1 appl TP DAILY [facility] Stop: 12/04/18 16:59 Last Admin: 10/06/18 09:09 Dose: 1 appl Cholecalciferol (Vitamin D3) 1,000 iu PO DAILY [facility] Stop: 12/04/18 08:59 Last Admin: 10/06/18 09:02 Dose: 1,000 iu Docusate Sodium (Colace) 100 mg PO DAILY [facility] Stop: 12/04/18 08:59 Last Admin: 10/06/18 09:09 Dose: Not Given Hydromorphone HCl (Dilaudid) 2 mg IVP Q3H PRN PRN Reason: SEVERE PAIN Stop: 12/04/18 14:18 Last Admin: 10/06/18 08:59 Dose: 2 mg Ceftriaxone Sodium 1 gm/ (Sodium Chloride) 50 mls @ 100 mls/hr IV Q24HR [facility] Stop: 12/03/18 20:59 Last Admin: 10/05/18 20:51 Dose: 100 mls/hr Sodium Chloride (Nacl 0.45%) 1,000 mls @ 125 mls/hr IV .Q8H [facility] Stop: 12/02/18 22:12 Last Admin: 10/06/18 02:53 Dose: 125 mls/hr Tobramycin Sulfate 120 mg/ (Sodium Chloride) 103 mls @ 100 mls/hr IV Q24HR [facility] Stop: 12/05/18 08:59 Insulin Aspart (Novolog Insulin Sliding Scale) 0 units SUBQ ACHS [facility]; Protocol Stop: 12/04/18 16:29 Last Admin: 10/06/18 07:17 Dose: Not Given Lisinopril (Zestril) 10 mg PO DAILY [facility] Stop: 12/04/18 08:59 Last Admin: 10/06/18 09:04 Dose: 10 mg Magnesium Hydroxide (Milk Of Magnesia) 30 ml PO HS PRN PRN Reason: Constipation Stop: 12/03/18 14:39 Miscellaneous (Duloxetine Hcl [Cymbalta]) 20 mg PO DAILY [facility] Stop: 12/04/18 08:59 Miscellaneous (Tobramycin Iv Per Pharmacy) 1 ea MC PRN PRN PRN Reason: RX DOSING Stop: 12/03/18 16:04 Miscellaneous (Vancomycin Iv Per Pharmacy) 1 ea MC PRN [facility] Stop: 12/04/18 23:44 Mupirocin (Bactroban Oint) 1 appl NS BID [facility] Stop: 10/10/18 09:01 Last Admin: 10/06/18 09:09 Dose: 1 appl Ondansetron HCl (Zofran) 4 mg IV Q6H PRN PRN Reason: Nausea / Vomiting Stop: 12/02/18 22:12 Pregabalin (Lyrica) 150 mg PO BID [facility] Stop: 12/03/18 16:59 Last Admin: 10/06/18 09:01 Dose: 150 mg General: Alert, Mild distress HEENT: Atraumatic, Mucous membr. moist/pink Neck: Supple, +2 carotid pulse wo bruit Cardiovascular: Regular rate, Normal S1, Normal S2 Lungs: Clear to auscultation Abdomen: Bowel sounds, Soft Extremities: no Edema Neurological: Sensation intact Skin: no Rash Psych/Mental Status: Mood NL - Procedures Procedures: Procedures Procedure Code Date EXCISION OF RIGHT UPPER FEMUR, OPEN APPROACH [id number] 07/25/18 INSPECTION OF LOWER INTESTINAL TRACT, ENDO [id number] 05/20/18 REPAIR ABDOMINAL WALL, OPEN APPROACH [id number] 07/25/18 Assessment/Plan - Problem List Patient Problems: All Active Problems FALL WITH LACERATION TO LEFT FRONTAL (Acute) Nutritional Asmnt/Malnutr-PDOC - Dietary Evaluation Malnutrition Findings (Please click <Entered> for more info): Nutritional Asmnt/Malnutrition Start: 10/05/18 14: 30 Text: Status: Complete Freq: Protocol: Document 10/05/18 14:30 FADI (Rec: 10/05/18 15:14 [email or web address]) Nutritional Asmnt/Malnutrition Patient General Information Nutritional Screening High Risk Consult Diagnosis infected decubiti, leukocytosis Pertinent Medical Hx/Surgical Hx HTN, DM, asthma, COPD, bilateral BKA, depression, bilateral PNA Subjective Information Received diet consult for low christina. Pt was undergoing a medical procedure at time of visit; unable to speak with him. Nursing noted PO intake: 0-75% yesterday. Per nurse note, pt had excisional debridement for right hip decubitus ulcer. Per MD note, current internal medicine assessment includes sepsis and renal failure. BMI 24.9 adjusted by bi AMINA. Current Diet Order/ Nutrition Support CCHO 45 gm, low Na, nonfat milk Pertinent Medications Vit C, Vit D3, colace, novolog , tobramycin, Nacl 0.45% Pertinent Labs 10/05: BUN 28, Cr 1.9, Ca 8.5, POC 76-102, Phos 4.2 10/04: BUN 28, Cr 2.1, Ca 9.1, POC 114-154 Nutritional Hx/Data Height 1.83 m Height (Calculated Centimeters) 182.9 Current Weight (lbs) 73.981 kg Weight (Calculated Kilograms) 74.0 Weight (Calculated Grams) 95473.9 [place] Body Weight 157 lb (adj for bilateral AKA) Body Mass Index (BMI) 22.1 Weight Status Approriate GI Symptoms GI Symptoms None Last BM none noted Difficult in: None Food Allergies Yes: pineapple, strawberry, mushroom Skin Integrity/Comment: bilateral BKA, 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 Problem Problem Altered nutrition related lab values Etiology dx of renal failure per MD note Signs/Symptoms: BUN 28, Cr 1.9, GFR 42.2 1. Problem Problem Increased nutrient needs Etiology wound healing, impaired skin integrity, sepsis Signs/Symptoms: ulcer/wound to buttocks and posterior thigh Malnutrition Alert Is there a minimum of two criteria No selected? Query Text:Check all the applicable criteria. A minimum of two criteria are recommended for diagnosis of either severe or non-severe malnutrition. Malnutrition Related to Morbid Obesity Malnutrition related to morbid obesity No Intervention/Recommendation Comments 1. Recommend to modify [facility] diet to 60 gm to meet pt's kcal needs 2. Continue with low Na diet w / nonfat milk as ordered, which will provide 100% of nutritional needs 3. Consider adding nutrition supplement if PO intake <75% 4. Monitor renal and glucose labs, skin integrity, wt, and PO intake 5. F/U as moderate risk in 3-5 days, 10/08-10/10 Expected Outcomes/Goals Expected Outcomes/Goals 1. PO intake to meet at least 75% of all meals 2. Wt stability, wounds to heal, and nutrition related labs to approach normal limits Reviewed by Rahel Minaya RD
--- NOTE | 2018-10-06 09:58 | Operative Report ---
DATE OF SURGERY: 10/05/2018 PREOPERATIVE DIAGNOSES: 1. Stage IV right hip decubitus ulcer. 2. Status post bilateral above-knee amputation. 3. Status post colostomy diverting. 4. Diabetes mellitus. 5. Renal failure. POSTOPERATIVE DIAGNOSES: 1. Stage IV right hip decubitus ulcer. 2. Status post bilateral above-knee amputation. 3. Status post colostomy diverting. 4. Diabetes mellitus. 5. Renal failure. OPERATION DONE: 1. Excisional debridement of stage IV right hip ulcer. 2. Primary closure with rotation flap. 3. Ostectomy right ischium. SURGEON: Dr. Waters. ANESTHESIA: General. ANESTHESIOLOGIST: Dr. Mrashall. INDICATIONS FOR SURGERY: The patient underwent a wound VAC placement following debridement 2 months ago, but the device was discontinued. There is a deep ulcer exposing the ischium on the right hip. DESCRIPTION OF PROCEDURE: The patient was given general anesthesia. The right hip was elevated, prepped with Betadine and draped in appropriate manner. An incision was made along the skin line to completely excise all scar tissue of the ulcer all the way down to the bone, which was then excised. This proved to be ischium rather than the trochanter. There was abundant bleeding present to allow for healing. The muscle was freed from its attachment only to allow to rotate to close the ulcer completely with primary sutures. The wound was reprepped with Betadine following this. A Jesse drain was then placed in the wound and the muscles were approximated utilizing interrupted sutures of #1 Vicryl. The subcutaneous tissues were closed with the same material and the skin with subcuticular suture of 4-0 Vicryl. A sterile dressing with OpSite was placed over this. The patient tolerated the procedure well. JOB# [id number]
[2018-10-06] MEDS ORDERED: Vancomycin HCl 1.5 GM in Sodium Chloride 0.9% 500 ML IV ONE (11:00)
--- NOTE | 2018-10-06 11:01 | Pathology Report ---
[id number] Collection date: 10/05/2018 Surgeon: Dr. Lenard Waters Specimen Description: Debrided tissue, right hip. Gross Description: Received in formalin is a 4.5 x 2.8 x 2.5 cm excision of tian-mosqueda skin and subcutaneous fibrofatty tissue. Sectioning shows areas of ulceration and grayish necrotic appearing changes. Delivery Representative sections are submitted in one cassette. Microscopic Description: The histologic sections show ulcerated skin with suppurative inflammation consisting of large collections of neutrophils with a very degenerated/necrotic background. Diagnosis: Ulcerated necrotic skin consistent with debridement, right hip. [facility]# [id number] [facility]
--- NOTE | 2018-10-06 12:38 | Internal Medicine Prog Note ---
Internal Medicine Subjective - Subjective Service Date: 10/06/18 (verbally abusive, curing at nursing staff. ) Patient is:: awake, other (weak) Per staff patient has:: no adverse event, tolerating meds Internal Medicine Objective - Results Result Diagrams: 10/06/18 08:45 10/06/18 08:45 Recent Labs: Laboratory Last Values WBC 9.7 Th/cmm (4.8-10.8) 10/06/18 08:45 RBC 4.78 Mil/cmm (4.30-5.70) 10/06/18 08:45 Hgb 13.4 gm/dL (12-16) 10/06/18 08:45 Hct 40.3 % (41.0-60) L 10/06/18 08:45 MCV 84.3 fl (80-99) 10/06/18 08:45 MCH 28.1 pg (26.0-30.0) 10/06/18 08:45 MCHC Differential 33.3 pg (28.0-36.0) 10/06/18 08:45 RDW 14.9 % (11.5-20.0) 10/06/18 08:45 Plt Count 242 Th/cmm (150-400) 10/06/18 08:45 MPV 8.3 fl 10/06/18 08:45 Add Manual Diff YES 10/05/18 05:15 Neutrophils % 73.9 % (40.0-80.0) 10/06/18 08:45 Band Neutrophils % 1 % (0-10) 10/05/18 05:15 Lymphocytes % 12.0 % (20.0-50.0) L 10/06/18 08:45 Monocytes % 7.7 % (2.0-10.0) 10/06/18 08:45 Eosinophils % 4.0 % (0.0-5.0) 10/06/18 08:45 Basophils % 2.4 % (0.0-2.0) H 10/06/18 08:45 Neutrophils (Manual) 65 % (40-80) 10/05/18 05:15 Lymphocytes 20 % (20-50) 10/05/18 05:15 Monocytes 6 % (2-10) 10/05/18 05:15 Eosinophils 8 % (0-5) H 10/05/18 05:15 Basophils 0 % (0-3) 10/05/18 05:15 Eos Smear Source URINE 10/05/18 00:00 Eos Smear Total Cells NONE SEEN (NONE SEEN) 10/05/18 00:00 PT 10.0 SECONDS (9.5-11.5) 10/05/18 05:15 INR 0.99 (0.5-1.4) 10/05/18 05:15 PTT (Actin FS) 27.2 SECONDS (26.0-38.0) 10/05/18 05:15 Sodium 137 mEq/L (136-145) 10/06/18 08:45 Potassium 4.7 mEq/L (3.5-5.1) 10/06/18 08:45 Chloride 104 mEq/L (98-107) 10/06/18 08:45 Carbon Dioxide 24.9 mEq/L (21.0-31.0) 10/06/18 08:45 Anion Gap 12.8 (7.0-16.0) 10/06/18 08:45 BUN 26 mg/dL (7-25) H 10/06/18 08:45 Creatinine 1.8 mg/dL (0.7-1.3) H 10/06/18 08:45 Est GFR ( Amer) 50.4 ml/min (>90) 10/06/18 08:45 Est GFR (Non-Af Amer) 41.7 ml/min 10/06/18 08:45 BUN/Creatinine Ratio 14.4 10/06/18 08:45 Glucose 101 mg/dL (70-105) 10/06/18 08:45 POC Glucose 114 MG/DL (70 - 105) H 10/06/18 11:36 Calcium 8.8 mg/dL (8.6-10.3) 10/06/18 08:45 Phosphorus 4.2 mg/dL (2.5-5.0) 10/05/18 05:15 Magnesium 1.9 mg/dL (1.9-2.7) 10/05/18 05:15 Total Bilirubin 0.3 mg/dL (0.3-1.0) 10/06/18 08:45 AST 17 U/L (13-39) 10/06/18 08:45 ALT 11 U/L (7-52) 10/06/18 08:45 Alkaline Phosphatase 68 U/L (34-104) 10/06/18 08:45 Troponin I 0.05 ng/mL (0.01-0.05) 10/03/18 18:50 Total Protein 6.8 gm/dL (6.0-8.3) 10/06/18 08:45 Albumin 3.7 gm/dL (4.2-5.5) L 10/06/18 08:45 Globulin 3.1 gm/dL 10/06/18 08:45 Albumin/Globulin Ratio 1.2 (1.0-1.8) 10/06/18 08:45 TSH 0.44 uIU/ml (0.34-5.60) 10/03/18 18:50 Urine Source CLEAN C 10/05/18 00:00 Urine Color YELLOW 10/05/18 00:00 Urine Clarity HAZY (CLEAR) 10/05/18 00:00 Urine pH 5.5 (4.6 - 8.0) 10/05/18 00:00 Ur Specific [place] 1.015 (1.005-1.030) 10/05/18 00:00 Urine Protein NEGATIVE mg/dL (NEGATIVE) 10/05/18 00:00 Urine Glucose (UA) NEGATIVE mg/dL (NEGATIVE) 10/05/18 00:00 Urine Ketones NEGATIVE mg/dL (NEGATIVE) 10/05/18 00:00 Urine Blood NEGATIVE (NEGATIVE) 10/05/18 00:00 Urine Nitrate NEGATIVE (NEGATIVE) 10/05/18 00:00 Urine Bilirubin NEGATIVE (NEGATIVE) 10/05/18 00:00 Urine Urobilinogen 0.2 E.U./dL (0.2 - 1.0) 10/05/18 00:00 Ur Leukocyte Esterase SMALL (NEGATIVE) H 10/05/18 00:00 Urine RBC 0-2 /hpf (0-5) H 10/05/18 00:00 Urine WBC 10-25 /hpf (0-5) H 10/05/18 00:00 Ur Epithelial Cells NONE SEEN /lpf (FEW) 10/05/18 00:00 Urine Bacteria MODERATE /hpf (NONE SEEN) H 18 00:00 Ur Random Sodium 64 mmol/L 10/05/18 00:00 Urine Creatinine 69.0 mg/dl (39.0-259.0) 10/05/18 00:00 Microalb/Creat Ratio 87.3 mg/g creat (0.0-30.0) H 10/05/18 00:00 Tobramycin Peak 1.1 ug/mL (4.0-10.0) L 10/06/18 11:00 Tobramycin Trough 1.0 ug/mL (0.5-2.0) 10/04/18 16:36 Random Vancomycin 13.2 ug/mL (5.0-40.0) 10/05/18 05:15 - Physical Exam Vitals and I&O: Vital Signs Temp 98.7 F 10/06/18 11:55 Pulse 76 10/06/18 11:55 Resp 18 10/06/18 11:55 BP 144/82 10/06/18 11:55 Pulse Ox 97 10/06/18 11:55 Intake & Output 10/05/18 10/06/18 10/06/18 18:59 06:59 18:59 Intake Total 600 1150 Balance 600 1150 Weight (lbs) 163 lb 1.6 oz 163 lb Intake: Intake, IV Amount 1000 Sodium Chloride 0.45% 1, 1000 000 ml @ 125 mls/hr IV . Q8H [facility] Rx#:[id number] Oral 600 150 Other: # Voids 3 4 # Bowel Movements 0 0 Weight Source Bedscale Bedscale Active Medications: Current Medications Acetaminophen (Tylenol Extra Strength) 1,000 mg PO Q4HR PRN PRN Reason: Pain (Moderate) LEVEL 4-6 Stop: 12/02/18 22:52 Acetaminophen (Tylenol) 650 mg PO DAILY [facility] Stop: 12/03/18 08:59 Last Admin: 10/06/18 09:01 Dose: 650 mg Acetaminophen (Tylenol) 650 mg PO Q4H PRN PRN Reason: MILD PAIN OR TEMP >101 Amitriptyline HCl (Elavil) 50 mg PO HS [facility] Stop: 12/03/18 20:59 Last Admin: 10/05/18 20:47 Dose: 50 mg Ascorbic Acid (Vitamin C) 500 mg PO DAILY [facility] Stop: 12/04/18 08:59 Last Admin: 10/06/18 09:00 Dose: 500 mg Aspirin (Aspirin Chewable) 81 mg PO DAILY [facility] Stop: 12/04/18 08:59 Last Admin: 10/06/18 09:02 Dose: 81 mg Baclofen (Lioresal) 10 mg PO Q8H [facility] Stop: 12/03/18 15:59 Last Admin: 10/06/18 09:01 Dose: 10 mg [place] Oil/Maldivian Balsam/Trypsin (Venelex) 1 appl TP DAILY [facility] Stop: 12/04/18 16:59 Last Admin: 10/06/18 09:09 Dose: 1 appl Cholecalciferol (Vitamin D3) 1,000 iu PO DAILY [facility] Stop: 12/04/18 08:59 Last Admin: 10/06/18 09:02 Dose: 1,000 iu Docusate Sodium (Colace) 100 mg PO DAILY [facility] Stop: 12/04/18 08:59 Last Admin: 10/06/18 09:09 Dose: Not Given Hydromorphone HCl (Dilaudid) 2 mg IVP Q3H PRN PRN Reason: SEVERE PAIN Stop: 12/04/18 14:18 Last Admin: 10/06/18 12:14 Dose: 2 mg Ceftriaxone Sodium 1 gm/ (Sodium Chloride) 50 mls @ 100 mls/hr IV Q24HR [facility] Stop: 12/03/18 20:59 Last Admin: 10/05/18 20:51 Dose: 100 mls/hr Sodium Chloride (Nacl 0.45%) 1,000 mls @ 125 mls/hr IV .Q8H [facility] Stop: 12/02/18 22:12 Last Admin: 10/06/18 02:53 Dose: 125 mls/hr Tobramycin Sulfate 120 mg/ (Sodium Chloride) 103 mls @ 100 mls/hr IV Q24HR [facility] Stop: 12/05/18 08:59 Last Admin: 10/06/18 09:10 Dose: 100 mls/hr Vancomycin HCl 1.5 gm/ Sodium (Chloride) 500 mls @ 250 mls/hr IV ONCE ONE Stop: 10/06/18 12:59 Last Admin: 10/06/18 10:44 Dose: 250 mls/hr Insulin Aspart (Novolog Insulin Sliding Scale) 0 units SUBQ ACHS [facility]; Protocol Stop: 12/04/18 16:29 Last Admin: 10/06/18 11:39 Dose: Not Given Lisinopril (Zestril) 10 mg PO DAILY [facility] Stop: 12/04/18 08:59 Last Admin: 10/06/18 09:04 Dose: 10 mg Magnesium Hydroxide (Milk Of Magnesia) 30 ml PO HS PRN PRN Reason: Constipation Stop: 12/03/18 14:39 Miscellaneous (Duloxetine Hcl [Cymbalta]) 20 mg PO DAILY [facility] Stop: 12/04/18 08:59 Miscellaneous (Tobramycin Iv Per Pharmacy) 1 ea PRN PRN PRN Reason: RX DOSING Stop: 12/03/18 16:04 Miscellaneous (Vancomycin Iv Per Pharmacy) 1 ea MC PRN AMPARO Stop: 12/04/18 23:44 Mupirocin (Bactroban Oint) 1 appl NS BID [facility] Stop: 10/10/18 09:01 Last Admin: 10/06/18 09:09 Dose: 1 appl Ondansetron HCl (Zofran) 4 mg IV Q6H PRN PRN Reason: Nausea / Vomiting Stop: 12/02/18 22:12 Pregabalin (Lyrica) 150 mg PO BID [facility] Stop: 12/03/18 16:59 Last Admin: 10/06/18 09:01 Dose: 150 mg General: alert, other (laceration in left eyebrow) HEENT: NC/AT Neck: Supple Lungs: CTAB Cardiovascular: RRR Abdomen: soft, non-tender Extremities: clear, edema Neurological: no change - Procedures Procedures: Procedures Procedure Code Date EXCISION OF RIGHT UPPER FEMUR, OPEN APPROACH [id number] 07/25/18 INSPECTION OF LOWER INTESTINAL TRACT, ENDO [id number] 05/20/18 REPAIR ABDOMINAL WALL, OPEN APPROACH [id number] 07/25/18 Internal Medicine Assmt/Plan - Assessment Assessment: right gluteal wound. s/p excisional debridement COPD bilateral above-knee amputation colostomy. Hypertension. Diabetes mellitus type 2. chronic pain syndrome. Left thigh wound. - Plan Plan: ivabx as per id follow up labs continue current tx Nutritional Asmnt/Malnutr-PDOC - Dietary Evaluation Malnutrition Findings (Please click <Entered> for more info): Nutritional Asmnt/Malnutrition Start: 10/05/18 14: 30 Text: Status: Complete Freq: Protocol: Document 10/05/18 14:30 FADI (Rec: 10/05/18 15:14 FADI [email or web address]) Nutritional Asmnt/Malnutrition Patient General Information Nutritional Screening High Risk Consult Diagnosis infected decubiti, leukocytosis Pertinent Medical Hx/Surgical Hx HTN, DM, asthma, COPD, bilateral BKA, depression, bilateral PNA Subjective Information Received diet consult for low christina. Pt was undergoing a medical procedure at time of visit; unable to speak with him. Nursing noted PO intake: 0-75% yesterday. Per nurse note, pt had excisional debridement for right hip decubitus ulcer. Per MD note, current internal medicine assessment includes sepsis and renal failure. BMI 24.9 adjusted by bi BKA. Current Diet Order/ Nutrition Support CCHO 45 gm, low Na, nonfat milk Pertinent Medications Vit C, Vit D3, colace, novolog , tobramycin, Nacl 0.45% Pertinent Labs 10/05: BUN 28, Cr 1.9, Ca 8.5, POC 76-102, Phos 4.2 10/04: BUN 28, Cr 2.1, Ca 9.1, POC 114-154 Nutritional Hx/Data Height 6 ft Height (Calculated Centimeters) 182.9 Current Weight (lbs) 163 lb 1.6 oz Weight (Calculated Kilograms) 74.0 Weight (Calculated Grams) 86161.9 [place] Body Weight 157 lb (adj for bilateral AKA) Body Mass Index (BMI) 22.1 Weight Status Approriate GI Symptoms GI Symptoms None Last BM none noted Difficult in: None Food Allergies Yes: pineapple, strawberry, mushroom Skin Integrity/Comment: bilateral BKA, 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 Problem Problem Altered nutrition related lab values Etiology dx of renal failure per MD note Signs/Symptoms: BUN 28, Cr 1.9, GFR 42.2 1. Problem Problem Increased nutrient needs Etiology wound healing, impaired skin integrity, sepsis Signs/Symptoms: ulcer/wound to buttocks and posterior thigh Malnutrition Alert Is there a minimum of two criteria No selected? Query Text:Check all the applicable criteria. A minimum of two criteria are recommended for diagnosis of either severe or non-severe malnutrition. Malnutrition Related to Morbid Obesity Malnutrition related to morbid obesity No Intervention/Recommendation Comments 1. Recommend to modify CCHO diet to 60 gm to meet pt's kcal needs 2. Continue with low Na diet w / nonfat milk as ordered, which will provide 100% of nutritional needs 3. Consider adding nutrition supplement if PO intake <75% 4. Monitor renal and glucose labs, skin integrity, wt, and PO intake 5. F/U as moderate risk in 3-5 days, 10/08-10/10 Expected Outcomes/Goals Expected Outcomes/Goals 1. PO intake to meet at least 75% of all meals 2. Wt stability, wounds to heal, and nutrition related labs to approach normal limits Reviewed by Rahel Minaya RD
--- NOTE | 2018-10-06 14:55 | General Progress Note ---
Subjective - Review of Systems Service Date: 10/06/18 Subjective: awake, slightly agitated Objective - Results Result Diagrams: 10/06/18 08:45 10/06/18 08:45 Recent Labs: Laboratory Last Values WBC 9.7 Th/cmm (4.8-10.8) 10/06/18 08:45 RBC 4.78 Mil/cmm (4.30-5.70) 10/06/18 08:45 Hgb 13.4 gm/dL (12-16) 10/06/18 08:45 Hct 40.3 % (41.0-60) L 10/06/18 08:45 MCV 84.3 fl (80-99) 10/06/18 08:45 MCH 28.1 pg (26.0-30.0) 10/06/18 08:45 MCHC Differential 33.3 pg (28.0-36.0) 10/06/18 08:45 RDW 14.9 % (11.5-20.0) 10/06/18 08:45 Plt Count 242 Th/cmm (150-400) 10/06/18 08:45 MPV 8.3 fl 10/06/18 08:45 Add Manual Diff YES 10/05/18 05:15 Neutrophils % 73.9 % (40.0-80.0) 10/06/18 08:45 Band Neutrophils % 1 % (0-10) 10/05/18 05:15 Lymphocytes % 12.0 % (20.0-50.0) L 10/06/18 08:45 Monocytes % 7.7 % (2.0-10.0) 10/06/18 08:45 Eosinophils % 4.0 % (0.0-5.0) 10/06/18 08:45 Basophils % 2.4 % (0.0-2.0) H 10/06/18 08:45 Neutrophils (Manual) 65 % (40-80) 10/05/18 05:15 Lymphocytes 20 % (20-50) 10/05/18 05:15 Monocytes 6 % (2-10) 10/05/18 05:15 Eosinophils 8 % (0-5) H 10/05/18 05:15 Basophils 0 % (0-3) 10/05/18 05:15 Eos Smear Source URINE 10/05/18 00:00 Eos Smear Total Cells NONE SEEN (NONE SEEN) 10/05/18 00:00 PT 10.0 SECONDS (9.5-11.5) 10/05/18 05:15 INR 0.99 (0.5-1.4) 10/05/18 05:15 PTT (Actin FS) 27.2 SECONDS (26.0-38.0) 10/05/18 05:15 Sodium 137 mEq/L (136-145) 10/06/18 08:45 Potassium 4.7 mEq/L (3.5-5.1) 10/06/18 08:45 Chloride 104 mEq/L (98-107) 10/06/18 08:45 Carbon Dioxide 24.9 mEq/L (21.0-31.0) 10/06/18 08:45 Anion Gap 12.8 (7.0-16.0) 10/06/18 08:45 BUN 26 mg/dL (7-25) H 10/06/18 08:45 Creatinine 1.8 mg/dL (0.7-1.3) H 10/06/18 08:45 Est GFR ( Amer) 50.4 ml/min (>90) 10/06/18 08:45 Est GFR (Non-Af Amer) 41.7 ml/min 10/06/18 08:45 BUN/Creatinine Ratio 14.4 10/06/18 08:45 Glucose 101 mg/dL (70-105) 10/06/18 08:45 POC Glucose 114 MG/DL (70 - 105) H 10/06/18 11:36 Calcium 8.8 mg/dL (8.6-10.3) 10/06/18 08:45 Phosphorus 4.2 mg/dL (2.5-5.0) 10/05/18 05:15 Magnesium 1.9 mg/dL (1.9-2.7) 10/05/18 05:15 Total Bilirubin 0.3 mg/dL (0.3-1.0) 10/06/18 08:45 AST 17 U/L (13-39) 10/06/18 08:45 ALT 11 U/L (7-52) 10/06/18 08:45 Alkaline Phosphatase 68 U/L (34-104) 10/06/18 08:45 Troponin I 0.05 ng/mL (0.01-0.05) 10/03/18 18:50 Total Protein 6.8 gm/dL (6.0-8.3) 10/06/18 08:45 Albumin 3.7 gm/dL (4.2-5.5) L 10/06/18 08:45 Globulin 3.1 gm/dL 10/06/18 08:45 Albumin/Globulin Ratio 1.2 (1.0-1.8) 10/06/18 08:45 TSH 0.44 uIU/ml (0.34-5.60) 11 18:50 Urine Source CLEAN C 10/05/18 00:00 Urine Color YELLOW 10/05/18 00:00 Urine Clarity HAZY (CLEAR) 10/05/18 00:00 Urine pH 5.5 (4.6 - 8.0) 10/05/18 00:00 Ur Specific [place] 1.015 (1.005-1.030) 10/05/18 00:00 Urine Protein NEGATIVE mg/dL (NEGATIVE) 10/05/18 00:00 Urine Glucose (UA) NEGATIVE mg/dL (NEGATIVE) 10/05/18 00:00 Urine Ketones NEGATIVE mg/dL (NEGATIVE) 10/05/18 00:00 Urine Blood NEGATIVE (NEGATIVE) 10/05/18 00:00 Urine Nitrate NEGATIVE (NEGATIVE) 10/05/18 00:00 Urine Bilirubin NEGATIVE (NEGATIVE) 10/05/18 00:00 Urine Urobilinogen 0.2 E.U./dL (0.2 - 1.0) 10/05/18 00:00 Ur Leukocyte Esterase SMALL (NEGATIVE) H 10/05/18 00:00 Urine RBC 0-2 /hpf (0-5) H 10/05/18 00:00 Urine WBC 10-25 /hpf (0-5) H 10/05/18 00:00 Ur Epithelial Cells NONE SEEN /lpf (FEW) 10/05/18 00:00 Urine Bacteria MODERATE /hpf (NONE SEEN) H 10/05/18 00:00 Ur Random Sodium 64 mmol/L 10/05/18 00:00 Urine Creatinine 69.0 mg/dl (39.0-259.0) 10/05/18 00:00 Microalb/Creat Ratio 87.3 mg/g creat (0.0-30.0) H 10/05/18 00:00 Tobramycin Peak 1.1 ug/mL (4.0-10.0) L 10/06/18 11:00 Tobramycin Trough 1.0 ug/mL (0.5-2.0) 10/04/18 16:36 Random Vancomycin 13.2 ug/mL (5.0-40.0) 10/05/18 05:15 - Physical Exam Vitals and I&O: Vital Signs Temp 98.7 F 10/06/18 11:55 Pulse 76 10/06/18 11:55 Resp 18 10/06/18 11:55 BP 144/82 10/06/18 11:55 Pulse Ox 97 10/06/18 11:55 Intake & Output 10/05/18 10/06/18 10/06/18 18:59 06:59 18:59 Intake Total 600 1150 Balance 600 1150 Weight (lbs) 73.981 kg 73.936 kg Intake: Intake, IV Amount 1000 Sodium Chloride 0.45% 1, 1000 000 ml @ 125 mls/hr IV . Q8H [facility] Rx#:[id number] Oral 600 150 Other: # Voids 3 4 # Bowel Movements 0 0 Weight Source Bedscale Bedscale Active Medications: Current Medications Acetaminophen (Tylenol Extra Strength) 1,000 mg PO Q4HR PRN PRN Reason: Pain (Moderate) LEVEL 4-6 Stop: 12/02/18 22:52 Acetaminophen (Tylenol) 650 mg PO DAILY [facility] Stop: 12/03/18 08:59 Last Admin: 10/06/18 09:01 Dose: 650 mg Acetaminophen (Tylenol) 650 mg PO Q4H PRN PRN Reason: MILD PAIN OR TEMP >101 Amitriptyline HCl (Elavil) 50 mg PO HS [facility] Stop: 12/03/18 20:59 Last Admin: 10/05/18 20:47 Dose: 50 mg Ascorbic Acid (Vitamin C) 500 mg PO DAILY [facility] Stop: 12/04/18 08:59 Last Admin: 10/06/18 09:00 Dose: 500 mg Aspirin (Aspirin Chewable) 81 mg PO DAILY [facility] Stop: 12/04/18 08:59 Last Admin: 10/06/18 09:02 Dose: 81 mg Baclofen (Lioresal) 10 mg PO Q8H [facility] Stop: 12/03/18 15:59 Last Admin: 10/06/18 09:01 Dose: 10 mg [place] Oil/[place] Balsam/Trypsin (Venelex) 1 appl TP DAILY [facility] Stop: 12/04/18 16:59 Last Admin: 10/06/18 09:09 Dose: 1 appl Cholecalciferol (Vitamin D3) 1,000 iu PO DAILY [facility] Stop: 12/04/18 08:59 Last Admin: 10/06/18 09:02 Dose: 1,000 iu Docusate Sodium (Colace) 100 mg PO DAILY [facility] Stop: 12/04/18 08:59 Last Admin: 10/06/18 09:09 Dose: Not Given Hydromorphone HCl (Dilaudid) 2 mg IVP Q3H PRN PRN Reason: SEVERE PAIN Stop: 12/04/18 14:18 Last Admin: 10/06/18 12:14 Dose: 2 mg Ceftriaxone Sodium 1 gm/ (Sodium Chloride) 50 mls @ 100 mls/hr IV Q24HR [facility] Stop: 12/03/18 20:59 Last Admin: 10/05/18 20:51 Dose: 100 mls/hr Sodium Chloride (Nacl 0.45%) 1,000 mls @ 125 mls/hr IV .Q8H [facility] Stop: 12/02/18 22:12 Last Admin: 10/06/18 02:53 Dose: 125 mls/hr Tobramycin Sulfate 120 mg/ (Sodium Chloride) 103 mls @ 100 mls/hr IV Q24HR [facility] Stop: 12/06/18 08:59 Insulin Aspart (Novolog Insulin Sliding Scale) 0 units SUBQ ACHS [facility]; Protocol Stop: 12/04/18 16:29 Last Admin: 10/06/18 11:39 Dose: Not Given Lisinopril (Zestril) 10 mg PO DAILY [facility] Stop: 12/04/18 08:59 Last Admin: 10/06/18 09:04 Dose: 10 mg Magnesium Hydroxide (Milk Of Magnesia) 30 ml PO HS PRN PRN Reason: Constipation Stop: 12/03/18 14:39 Miscellaneous (Duloxetine Hcl [Cymbalta]) 20 mg PO DAILY [facility] Stop: 12/04/18 08:59 Miscellaneous (Tobramycin Iv Per Pharmacy) 1 ea MC PRN PRN PRN Reason: RX DOSING Stop: 12/03/18 16:04 Miscellaneous (Vancomycin Iv Per Pharmacy) 1 ea MC PRN [facility] Stop: 12/04/18 23:44 Mupirocin (Bactroban Oint) 1 appl NS BID [facility] Stop: 10/10/18 09:01 Last Admin: 10/06/18 09:09 Dose: 1 appl Ondansetron HCl (Zofran) 4 mg IV Q6H PRN PRN Reason: Nausea / Vomiting Stop: 12/02/18 22:12 Pregabalin (Lyrica) 150 mg PO BID [facility] Stop: 12/03/18 16:59 Last Admin: 10/06/18 09:01 Dose: 150 mg General: Alert, Mild distress HEENT: Atraumatic, Mucous membr. moist/pink Neck: Supple, +2 carotid pulse wo bruit Cardiovascular: Regular rate, Normal S1, Normal S2 Lungs: Clear to auscultation Abdomen: Bowel sounds, Soft Extremities: no Edema Neurological: Sensation intact Skin: no Rash Psych/Mental Status: Mood NL - Procedures Procedures: Procedures Procedure Code Date EXCISION OF RIGHT UPPER FEMUR, OPEN APPROACH [id number] 07/25/18 INSPECTION OF LOWER INTESTINAL TRACT, ENDO [id number] 05/20/18 REPAIR ABDOMINAL WALL, OPEN APPROACH [id number] 07/25/18 Assessment/Plan - Problem List Patient Problems: All Active Problems FALL WITH LACERATION TO LEFT FRONTAL (Acute) - Assessment Assessment: MAGDALENA S/P Fall Left Eyebrow Laceration T2DM Ess Htn Paranoid Schizo PAD S/P AKA B/L hip Ulcers S/P closure right hip wound - Plan Plan: Lab - Result Diagrams 10/05/18 05:15 10/05/18 05:15 Current Medications Acetaminophen (Tylenol Extra Strength) 1,000 mg PO Q4HR PRN PRN Reason: Pain (Moderate) LEVEL 4-6 Stop: 12/02/18 22:52 Acetaminophen (Tylenol) 650 mg PO DAILY [facility] Stop: 12/03/18 08:59 Last Admin: 10/05/18 10:32 Dose: Not Given Acetaminophen (Tylenol) 650 mg PO Q4H PRN PRN Reason: MILD PAIN OR TEMP >101 Amitriptyline HCl (Elavil) 50 mg PO HS [facility] Stop: 12/03/18 20:59 Last Admin: 10/05/18 00:22 Dose: 50 mg Ascorbic Acid (Vitamin C) 500 mg PO DAILY [facility] Stop: 12/04/18 08:59 Last Admin: 10/05/18 10:33 Dose: Not Given Aspirin (Aspirin Chewable) 81 mg PO DAILY [facility] Stop: 12/04/18 08:59 Last Admin: 10/05/18 10:33 Dose: Not Given Baclofen (Lioresal) 10 mg PO Q8H [facility] Stop: 12/03/18 15:59 Last Admin: 10/05/18 10:32 Dose: Not Given Cholecalciferol (Vitamin D3) 1,000 iu PO DAILY [facility] Stop: 12/04/18 08:59 Last Admin: 10/05/18 10:33 Dose: Not Given Docusate Sodium (Colace) 100 mg PO DAILY [facility] Stop: 12/04/18 08:59 Last Admin: 10/05/18 10:33 Dose: Not Given Hydromorphone HCl (Dilaudid) 2 mg IVP Q4HR PRN PRN Reason: Severe Pain Stop: 12/03/18 20:13 Last Admin: 10/05/18 11:10 Dose: 2 mg Ceftriaxone Sodium 1 gm/ (Sodium Chloride) 50 mls @ 100 mls/hr IV Q24HR [facility] Stop: 12/03/18 20:59 Last Infusion: 10/04/18 21:40 Dose: Infused Sodium Chloride (Nacl 0.45%) 1,000 mls @ 125 mls/hr IV .Q8H [facility] Stop: 12/02/18 22:12 Last Admin: 10/05/18 12:19 Dose: 125 mls/hr Tobramycin Sulfate 120 mg/ (Sodium Chloride) 103 mls @ 100 mls/hr IV Q24HR [facility] Stop: 12/03/18 20:59 Last Admin: 10/05/18 07:36 Dose: 100 mls/hr Tobramycin Sulfate 120 mg/ (Sodium Chloride) 103 mls @ 100 mls/hr IV Q24HR [facility] Stop: 12/05/18 08:59 Insulin Aspart (Novolog Insulin Sliding Scale) 0 units SUBQ Q6HR [facility]; Protocol Stop: 12/03/18 00:00 Last Admin: 10/05/18 12:04 Dose: Not Given Lisinopril (Zestril) 10 mg PO DAILY [facility] Stop: 12/04/18 08:59 Last Admin: 10/05/18 10:33 Dose: Not Given Magnesium Hydroxide (Milk Of Magnesia) 30 ml PO HS PRN PRN Reason: Constipation Stop: 12/03/18 14:39 Miscellaneous (Collagenase Clostridium Hist. [Santyl]) 1 appl TP DAILY [facility] Stop: 12/04/18 08:59 Miscellaneous (Duloxetine Hcl [Cymbalta]) 20 mg PO DAILY [facility] Stop: 12/04/18 08:59 Miscellaneous (Tobramycin Iv Per Pharmacy) 1 ea MC PRN PRN PRN Reason: RX DOSING Stop: 12/03/18 16:04 Ondansetron HCl (Zofran) 4 mg IV Q6H PRN PRN Reason: Nausea / Vomiting Stop: 12/02/18 22:12 Pregabalin (Lyrica) 150 mg PO BID [facility] Stop: 12/03/18 16:59 Last Admin: 10/05/18 10:33 Dose: Not Given Lab - Result Diagrams 10/06/18 08:45 10/06/18 08:45 Kidney fnc remain stable w/ Cr. of 1.8 continue ivf noted Vanco, Tobra levels f/u electrolytes Nutritional Asmnt/Malnutr-PDOC - Dietary Evaluation Malnutrition Findings (Please click <Entered> for more info): Nutritional Asmnt/Malnutrition Start: 10/05/18 14: 30 Text: Status: Complete Freq: Protocol: Document 10/05/18 14:30 FADI (Rec: 10/05/18 15:14 [email or web address]) Nutritional Asmnt/Malnutrition Patient General Information Nutritional Screening High Risk Consult Diagnosis infected decubiti, leukocytosis Pertinent Medical Hx/Surgical Hx HTN, DM, asthma, COPD, bilateral BKA, depression, bilateral PNA Subjective Information Received diet consult for low christina. Pt was undergoing a medical procedure at time of visit; unable to speak with him. Nursing noted PO intake: 0-75% yesterday. Per nurse note, pt had excisional debridement for right hip decubitus ulcer. Per MD note, current internal medicine assessment includes sepsis and renal failure. BMI 24.9 adjusted by bi BKA. Current Diet Order/ Nutrition Support CCHO 45 gm, low Na, nonfat milk Pertinent Medications Vit C, Vit D3, colace, novolog , tobramycin, Nacl 0.45% Pertinent Labs 10/05: BUN 28, Cr 1.9, Ca 8.5, POC 76-102, Phos 4.2 10/04: BUN 28, Cr 2.1, Ca 9.1, POC 114-154 Nutritional Hx/Data Height 1.83 m Height (Calculated Centimeters) 182.9 Current Weight (lbs) 73.981 kg Weight (Calculated Kilograms) 74.0 Weight (Calculated Grams) 49709.9 [place] Body Weight 157 lb (adj for bilateral AKA) Body Mass Index (BMI) 22.1 Weight Status Approriate GI Symptoms GI Symptoms None Last BM none noted Difficult in: None Food Allergies Yes: pineapple, strawberry, mushroom Skin Integrity/Comment: bilateral BKA, 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 Problem Problem Altered nutrition related lab values Etiology dx of renal failure per MD note Signs/Symptoms: BUN 28, Cr 1.9, GFR 42.2 1. Problem Problem Increased nutrient needs Etiology wound healing, impaired skin integrity, sepsis Signs/Symptoms: ulcer/wound to buttocks and posterior thigh Malnutrition Alert Is there a minimum of two criteria No selected? Query Text:Check all the applicable criteria. A minimum of two criteria are recommended for diagnosis of either severe or non-severe malnutrition. Malnutrition Related to Morbid Obesity Malnutrition related to morbid obesity No Intervention/Recommendation Comments 1. Recommend to modify [facility] diet to 60 gm to meet pt's kcal needs 2. Continue with low Na diet w / nonfat milk as ordered, which will provide 100% of nutritional needs 3. Consider adding nutrition supplement if PO intake <75% 4. Monitor renal and glucose labs, skin integrity, wt, and PO intake 5. F/U as moderate risk in 3-5 days, 10/08-10/10 Expected Outcomes/Goals Expected Outcomes/Goals 1. PO intake to meet at least 75% of all meals 2. Wt stability, wounds to heal, and nutrition related labs to approach normal limits Reviewed by Rahel Minaya RD
[2018-10-06] MEDS: cefTRIAXone 1 GM in Sodium Chloride 0.9% 50 ML IV SCH (20:15)
[2018-10-07] MEDS: HYDROmorphone 2 mg/mL 1mL Vial IVP PRN ×7 (02:29→22:31)
[2018-10-07] MEDS: Sodium Chloride 0.45% 1,000 ML IV SCH ×3 (02:29→20:31)
[2018-10-07] MEDS: INSULIN ASPART SLIDING SCALE 100 UNITS/ML UNIT SUBQ SCH ×4 (06:37→20:25)
[2018-10-07 06:44] LABS: % BASOPHILS 0.7 % (0.0-2.0); % EOSINOPHILS 5.4 % (0.0-5.0); % LYMPHOCYTES 14.5 % (20.0-50.0); % NEUTROPHILS 67.4 % (40.0-80.0); BASOPHILE ABSOLUTE 0.1 Th/cumm (0-0.2); EOSINOPHILE ABSOLUTE 0.5 Th/cmm (0.1-0.4); HEMATOCRIT 38.5 % (41.0-60); HEMOGLOBIN 12.8 gm/dL (12-16); LYMPHOCYTE ABSOLUTE 1.3 Th/cmm (1.5-3.0); MEAN CELL VOLUME 83.8 fl (80-99); MEAN CORPUSCULAR HEMOGLOBIN 27.9 pg (26.0-30.0); MEAN CORPUSCULAR HGB CONC 33.3 pg (28.0-36.0); MEAN PLATELET VOLUME 8.6 fl; NEUTROPHILE ABSOLUTE 5.8 Th/cmm (1.8-8.0); PLATELET COUNT 207 Th/cmm (150-400); RED BLOOD COUNT 4.59 Mil/cmm (4.30-5.70); RED CELL DISTRIBUTION WIDTH 14.8 % (11.5-20.0); WHITE BLOOD COUNT 8.7 Th/cmm (4.8-10.8)
[2018-10-07 07:07] LABS: ANION GAP 12.7 (7.0-16.0); CALCIUM SERUM 8.5 mg/dL (8.6-10.3); CARBON DIOXIDE 22.6 mEq/L (21.0-31.0); CREATININE - SERUM 1.7 mg/dL (0.7-1.3); GFR AFRICAN-AMERICAN 53.9 ml/min (>90); GFR NON AFRICAN-AMERICAN 44.5 ml/min; POTASSIUM SERUM 4.3 mEq/L (3.5-5.1)
[2018-10-07] MEDS: Multivitamin w/ Minerals Tab PO SCH (08:44)
[2018-10-07] MEDS: Aspirin 81mg Chewable Tab PO SCH (08:44)
[2018-10-07] MEDS: Venelex 60gm Tube TP SCH (08:47)
--- NOTE | 2018-10-07 14:01 | General Progress Note ---
Subjective - Review of Systems Service Date: 10/07/18 Subjective: awake, slightly agitated Objective - Results Result Diagrams: 10/07/18 05:50 10/07/18 05:50 Recent Labs: Laboratory Last Values WBC 8.7 Th/cmm (4.8-10.8) 10/07/18 05:50 RBC 4.59 Mil/cmm (4.30-5.70) 10/07/18 05:50 Hgb 12.8 gm/dL (12-16) 10/07/18 05:50 Hct 38.5 % (41.0-60) L 10/07/18 05:50 MCV 83.8 fl (80-99) 10/07/18 05:50 MCH 27.9 pg (26.0-30.0) 10/07/18 05:50 MCHC Differential 33.3 pg (28.0-36.0) 10/07/18 05:50 RDW 14.8 % (11.5-20.0) 10/07/18 05:50 Plt Count 207 Th/cmm (150-400) 10/07/18 05:50 MPV 8.6 fl 10/07/18 05:50 Add Manual Diff YES 10/05/18 05:15 Neutrophils % 67.4 % (40.0-80.0) 10/07/18 05:50 Band Neutrophils % 1 % (0-10) 10/05/18 05:15 Lymphocytes % 14.5 % (20.0-50.0) L 10/07/18 05:50 Monocytes % 12.0 % (2.0-10.0) H 10/07/18 05:50 Eosinophils % 5.4 % (0.0-5.0) H 10/07/18 05:50 Basophils % 0.7 % (0.0-2.0) 10/07/18 05:50 Neutrophils (Manual) 65 % (40-80) 10/05/18 05:15 Lymphocytes 20 % (20-50) 10/05/18 05:15 Monocytes 6 % (2-10) 10/05/18 05:15 Eosinophils 8 % (0-5) H 10/05/18 05:15 Basophils 0 % (0-3) 10/05/18 05:15 Eos Smear Source URINE 10/05/18 00:00 Eos Smear Total Cells NONE SEEN (NONE SEEN) 10/05/18 00:00 PT 10.0 SECONDS (9.5-11.5) 10/05/18 05:15 INR 0.99 (0.5-1.4) 10/05/18 05:15 PTT (Actin FS) 27.2 SECONDS (26.0-38.0) 10/05/18 05:15 Sodium 138 mEq/L (136-145) 10/07/18 05:50 Potassium 4.3 mEq/L (3.5-5.1) 10/07/18 05:50 Chloride 107 mEq/L (98-107) 10/07/18 05:50 Carbon Dioxide 22.6 mEq/L (21.0-31.0) 10/07/18 05:50 Anion Gap 12.7 (7.0-16.0) 10/07/18 05:50 BUN 24 mg/dL (7-25) 10/07/18 05:50 Creatinine 1.7 mg/dL (0.7-1.3) H 10/07/18 05:50 Est GFR ( Amer) 53.9 ml/min (>90) 10/07/18 05:50 Est GFR (Non-Af Amer) 44.5 ml/min 10/07/18 05:50 BUN/Creatinine Ratio 14.1 10/07/18 05:50 Glucose 103 mg/dL (70-105) 10/07/18 05:50 POC Glucose 93 MG/DL (70 - 105) 10/07/18 11:50 Calcium 8.5 mg/dL (8.6-10.3) L 10/07/18 05:50 Phosphorus 4.2 mg/dL (2.5-5.0) 10/05/18 05:15 Magnesium 1.9 mg/dL (1.9-2.7) 10/05/18 05:15 Total Bilirubin 0.3 mg/dL (0.3-1.0) 10/06/18 08:45 AST 17 U/L (13-39) 10/06/18 08:45 ALT 11 U/L (7-52) 10/06/18 08:45 Alkaline Phosphatase 68 U/L (34-104) 10/06/18 08:45 Troponin I 0.05 ng/mL (0.01-0.05) 10/03/18 18:50 Total Protein 6.8 gm/dL (6.0-8.3) 10/06/18 08:45 Albumin 3.7 gm/dL (4.2-5.5) L 10/06/18 08:45 Globulin 3.1 gm/dL 10/06/18 08:45 Albumin/Globulin Ratio 1.2 (1.0-1.8) 10/06/18 08:45 TSH 0.44 uIU/ml (0.34-5.60) 11 18:50 Urine Source CLEAN C 10/05/18 00:00 Urine Color YELLOW 10/05/18 00:00 Urine Clarity HAZY (CLEAR) 10/05/18 00:00 Urine pH 5.5 (4.6 - 8.0) 10/05/18 00:00 Ur Specific [place] 1.015 (1.005-1.030) 10/05/18 00:00 Urine Protein NEGATIVE mg/dL (NEGATIVE) 10/05/18 00:00 Urine Glucose (UA) NEGATIVE mg/dL (NEGATIVE) 10/05/18 00:00 Urine Ketones NEGATIVE mg/dL (NEGATIVE) 10/05/18 00:00 Urine Blood NEGATIVE (NEGATIVE) 10/05/18 00:00 Urine Nitrate NEGATIVE (NEGATIVE) 10/05/18 00:00 Urine Bilirubin NEGATIVE (NEGATIVE) 10/05/18 00:00 Urine Urobilinogen 0.2 E.U./dL (0.2 - 1.0) 10/05/18 00:00 Ur Leukocyte Esterase SMALL (NEGATIVE) H 10/05/18 00:00 Urine RBC 0-2 /hpf (0-5) H 10/05/18 00:00 Urine WBC 10-25 /hpf (0-5) H 10/05/18 00:00 Ur Epithelial Cells NONE SEEN /lpf (FEW) 10/05/18 00:00 Urine Bacteria MODERATE /hpf (NONE SEEN) H 10/05/18 00:00 Ur Random Sodium 64 mmol/L 10/05/18 00:00 Urine Creatinine 69.0 mg/dl (39.0-259.0) 10/05/18 00:00 Microalb/Creat Ratio 87.3 mg/g creat (0.0-30.0) H 10/05/18 00:00 Tobramycin Peak 6.2 ug/mL (4.0-10.0) 10/06/18 11:00 Tobramycin Trough 1.1 ug/mL (0.5-2.0) 10/06/18 08:45 Random Vancomycin 23.4 ug/mL (5.0-40.0) 10/07/18 05:50 - Physical Exam Vitals and I&O: Vital Signs Temp 98.2 F 10/07/18 11:52 Pulse 68 10/07/18 11:52 Resp 18 10/07/18 11:55 BP 127/83 10/07/18 11:52 Pulse Ox 97 10/07/18 11:52 Intake & Output 10/06/18 10/07/18 10/07/18 18:59 06:59 18:59 Intake Total 1000 1890 920.833 Output Total 2960 Balance 1000 -1070 920.833 Weight (lbs) 73.936 kg Intake: Intake, IV Amount 1000 1050 920.833 Sodium Chloride 0.45% 1, 1000 1000 920.833 000 ml @ 125 mls/hr IV . Q8H [facility] Rx#:[id number] cefTRIAXone 1 gm In 50 Sodium Chloride 0.9% 50 ml @ 100 mls/hr IV Q24HR [facility] Rx#:[id number] Oral 840 Output: Drainage 30 RIGHT BUTTOCK 30 Urine 2900 Hemodialysis 30 Other: # Bowel Movements 0 Weight Source Bedscale Active Medications: Current Medications Acetaminophen (Tylenol Extra Strength) 1,000 mg PO Q4HR PRN PRN Reason: Pain (Moderate) LEVEL 4-6 Stop: 12/02/18 22:52 Acetaminophen (Tylenol) 650 mg PO DAILY [facility] Stop: 12/03/18 08:59 Last Admin: 10/07/18 08:47 Dose: Not Given Acetaminophen (Tylenol) 650 mg PO Q4H PRN PRN Reason: MILD PAIN OR TEMP >101 Amitriptyline HCl (Elavil) 50 mg PO HS [facility] Stop: 12/03/18 20:59 Last Admin: 10/06/18 20:15 Dose: 50 mg Ascorbic Acid (Vitamin C) 500 mg PO DAILY [facility] Stop: 12/04/18 08:59 Last Admin: 11/14/18 08:44 Dose: 500 mg Aspirin (Aspirin Chewable) 81 mg PO DAILY [facility] Stop: 12/04/18 08:59 Last Admin: 10/07/18 08:44 Dose: 81 mg Baclofen (Lioresal) 10 mg PO Q8H [facility] Stop: 12/03/18 15:59 Last Admin: 10/07/18 08:44 Dose: 10 mg [place] Balsam/Trypsin (Venelex) 1 appl TP DAILY [facility] Stop: 12/04/18 16:59 Last Admin: 10/07/18 08:47 Dose: 1 appl Cholecalciferol (Vitamin D3) 1,000 iu PO DAILY [facility] Stop: 12/04/18 08:59 Last Admin: 10/07/18 08:44 Dose: 1,000 iu Docusate Sodium (Colace) 100 mg PO DAILY [facility] Stop: 12/04/18 08:59 Last Admin: 10/07/18 08:47 Dose: Not Given Hydromorphone HCl (Dilaudid) 2 mg IVP Q3H PRN PRN Reason: SEVERE PAIN Stop: 12/04/18 14:18 Last Admin: 10/07/18 12:56 Dose: 2 mg Ceftriaxone Sodium 1 gm/ (Sodium Chloride) 50 mls @ 100 mls/hr IV Q24HR [facility] Stop: 12/03/18 20:59 Last Infusion: 10/06/18 20:45 Dose: Infused Sodium Chloride (Nacl 0.45%) 1,000 mls @ 125 mls/hr IV .Q8H [facility] Stop: 12/02/18 22:12 Last Admin: 10/07/18 09:51 Dose: 125 mls/hr Tobramycin Sulfate 120 mg/ (Sodium Chloride) 103 mls @ 100 mls/hr IV Q24HR [facility] Stop: 12/06/18 08:59 Last Admin: 10/07/18 09:50 Dose: 100 mls/hr Vancomycin HCl 1.5 gm/ Sodium (Chloride) 500 mls @ 250 mls/hr IV Q24H [facility] Stop: 12/06/18 20:59 Insulin Aspart (Novolog Insulin Sliding Scale) 0 units SUBQ ACHS [facility]; Protocol Stop: 12/04/18 16:29 Last Admin: 10/07/18 11:57 Dose: Not Given Lisinopril (Zestril) 10 mg PO DAILY [facility] Stop: 12/04/18 08:59 Last Admin: 10/07/18 08:45 Dose: 10 mg Magnesium Hydroxide (Milk Of Magnesia) 30 ml PO HS PRN PRN Reason: Constipation Stop: 12/03/18 14:39 Miscellaneous (Duloxetine Hcl [Cymbalta]) 20 mg PO DAILY [facility] Stop: 12/04/18 08:59 Miscellaneous (Tobramycin Iv Per Pharmacy) 1 ea PRN PRN PRN Reason: RX DOSING Stop: 12/03/18 16:04 Miscellaneous (Vancomycin Iv Per Pharmacy) 1 ea PRN [facility] Stop: 12/04/18 23:44 Mupirocin (Bactroban Oint) 1 appl NS BID [facility] Stop: 10/10/18 09:01 Last Admin: 10/07/18 08:47 Dose: 1 appl Ondansetron HCl (Zofran) 4 mg IV Q6H PRN PRN Reason: Nausea / Vomiting Stop: 12/02/18 22:12 Pregabalin (Lyrica) 150 mg PO BID [facility] Stop: 12/03/18 16:59 Last Admin: 10/07/18 08:44 Dose: 150 mg General: Alert, Mild distress HEENT: Atraumatic, Mucous membr. moist/pink Neck: Supple, +2 carotid pulse wo bruit Cardiovascular: Regular rate, Normal S1, Normal S2 Lungs: Clear to auscultation Abdomen: Bowel sounds, Soft Extremities: no Edema Neurological: Sensation intact Skin: no Rash Psych/Mental Status: Mood NL - Procedures Procedures: Procedures Procedure Code Date EXCISION OF RIGHT PELVIC BONE, OPEN APPROACH [id number] 10/03/18 EXCISION OF RIGHT UPPER FEMUR, OPEN APPROACH [id number] 07/25/18 INSPECTION OF LOWER INTESTINAL TRACT, ENDO [id number] 05/20/18 REPAIR ABDOMINAL WALL, OPEN APPROACH [id number] 07/25/18 Assessment/Plan - Problem List Patient Problems: All Active Problems FALL WITH LACERATION TO LEFT FRONTAL (Acute) - Assessment Assessment: MAGDALENA S/P Fall Left Eyebrow Laceration T2DM Ess Htn Paranoid Schizo PAD S/P AKA B/L hip Ulcers S/P closure right hip wound - Plan Plan: Lab - Result Diagrams 10/05/18 05:15 10/05/18 05:15 Current Medications Acetaminophen (Tylenol Extra Strength) 1,000 mg PO Q4HR PRN PRN Reason: Pain (Moderate) LEVEL 4-6 Stop: 12/02/18 22:52 Acetaminophen (Tylenol) 650 mg PO DAILY [facility] Stop: 12/03/18 08:59 Last Admin: 10/05/18 10:32 Dose: Not Given Acetaminophen (Tylenol) 650 mg PO Q4H PRN PRN Reason: MILD PAIN OR TEMP >101 Amitriptyline HCl (Elavil) 50 mg PO HS [facility] Stop: 12/03/18 20:59 Last Admin: 10/05/18 00:22 Dose: 50 mg Ascorbic Acid (Vitamin C) 500 mg PO DAILY [facility] Stop: 12/04/18 08:59 Last Admin: 10/05/18 10:33 Dose: Not Given Aspirin (Aspirin Chewable) 81 mg PO DAILY [facility] Stop: 12/04/18 08:59 Last Admin: 10/05/18 10:33 Dose: Not Given Baclofen (Lioresal) 10 mg PO Q8H [facility] Stop: 12/03/18 15:59 Last Admin: 10/05/18 10:32 Dose: Not Given Cholecalciferol (Vitamin D3) 1,000 iu PO DAILY [facility] Stop: 12/04/18 08:59 Last Admin: 10/05/18 10:33 Dose: Not Given Docusate Sodium (Colace) 100 mg PO DAILY [facility] Stop: 12/04/18 08:59 Last Admin: 10/05/18 10:33 Dose: Not Given Hydromorphone HCl (Dilaudid) 2 mg IVP Q4HR PRN PRN Reason: Severe Pain Stop: 12/03/18 20:13 Last Admin: 10/05/18 11:10 Dose: 2 mg Ceftriaxone Sodium 1 gm/ (Sodium Chloride) 50 mls @ 100 mls/hr IV Q24HR [facility] Stop: 12/03/18 20:59 Last Infusion: 10/04/18 21:40 Dose: Infused Sodium Chloride (Nacl 0.45%) 1,000 mls @ 125 mls/hr IV .Q8H [facility] Stop: 12/02/18 22:12 Last Admin: 10/05/18 12:19 Dose: 125 mls/hr Tobramycin Sulfate 120 mg/ (Sodium Chloride) 103 mls @ 100 mls/hr IV Q24HR [facility] Stop: 12/03/18 20:59 Last Admin: 10/05/18 07:36 Dose: 100 mls/hr Tobramycin Sulfate 120 mg/ (Sodium Chloride) 103 mls @ 100 mls/hr IV Q24HR [facility] Stop: 12/05/18 08:59 Insulin Aspart (Novolog Insulin Sliding Scale) 0 units SUBQ Q6HR [facility]; Protocol Stop: 12/03/18 00:00 Last Admin: 10/05/18 12:04 Dose: Not Given Lisinopril (Zestril) 10 mg PO DAILY [facility] Stop: 12/04/18 08:59 Last Admin: 10/05/18 10:33 Dose: Not Given Magnesium Hydroxide (Milk Of Magnesia) 30 ml PO HS PRN PRN Reason: Constipation Stop: 12/03/18 14:39 Miscellaneous (Collagenase Clostridium Hist. [Santyl]) 1 appl TP DAILY [facility] Stop: 12/04/18 08:59 Miscellaneous (Duloxetine Hcl [Cymbalta]) 20 mg PO DAILY [facility] Stop: 12/04/18 08:59 Miscellaneous (Tobramycin Iv Per Pharmacy) 1 ea MC PRN PRN PRN Reason: RX DOSING Stop: 12/03/18 16:04 Ondansetron HCl (Zofran) 4 mg IV Q6H PRN PRN Reason: Nausea / Vomiting Stop: 12/02/18 22:12 Pregabalin (Lyrica) 150 mg PO BID [facility] Stop: 12/03/18 16:59 Last Admin: 10/05/18 10:33 Dose: Not Given Lab - Result Diagrams 10/07/18 05:50 10/07/18 05:50 Kidney fnc remain stable w/ Cr. of 1.8 continue ivf noted Vanco, Tobra levels f/u electrolytes Nutritional Asmnt/Malnutr-PDOC - Dietary Evaluation Malnutrition Findings (Please click <Entered> for more info): Nutritional Asmnt/Malnutrition Start: 10/05/18 14: 30 Text: Status: Complete Freq: Protocol: Document 10/05/18 14:30 FADI (Rec: 10/05/18 15:14 [email or web address] [id number]) Nutritional Asmnt/Malnutrition Patient General Information Nutritional Screening High Risk Consult Diagnosis infected decubiti, leukocytosis Pertinent Medical Hx/Surgical Hx HTN, DM, asthma, COPD, bilateral BKA, depression, bilateral PNA Subjective Information Received diet consult for low christina. Pt was undergoing a medical procedure at time of visit; unable to speak with him. Nursing noted PO intake: 0-75% yesterday. Per nurse note, pt had excisional debridement for right hip decubitus ulcer. Per MD note, current internal medicine assessment includes sepsis and renal failure. BMI 24.9 adjusted by bi BKA. Current Diet Order/ Nutrition Support CCHO 45 gm, low Na, nonfat milk Pertinent Medications Vit C, Vit D3, colace, novolog , tobramycin, Nacl 0.45% Pertinent Labs 10/05: BUN 28, Cr 1.9, Ca 8.5, POC 76-102, Phos 4.2 10/04: BUN 28, Cr 2.1, Ca 9.1, POC 114-154 Nutritional Hx/Data Height 1.83 m Height (Calculated Centimeters) 182.9 Current Weight (lbs) 73.981 kg Weight (Calculated Kilograms) 74.0 Weight (Calculated Grams) 30164.9 [place] Body Weight 157 lb (adj for bilateral AKA) Body Mass Index (BMI) 22.1 Weight Status Approriate GI Symptoms GI Symptoms None Last BM none noted Difficult in: None Food Allergies Yes: pineapple, strawberry, mushroom Skin Integrity/Comment: bilateral BKA, 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 Problem Problem Altered nutrition related lab values Etiology dx of renal failure per MD note Signs/Symptoms: BUN 28, Cr 1.9, GFR 42.2 1. Problem Problem Increased nutrient needs Etiology wound healing, impaired skin integrity, sepsis Signs/Symptoms: ulcer/wound to buttocks and posterior thigh Malnutrition Alert Is there a minimum of two criteria No selected? Query Text:Check all the applicable criteria. A minimum of two criteria are recommended for diagnosis of either severe or non-severe malnutrition. Malnutrition Related to Morbid Obesity Malnutrition related to morbid obesity No Intervention/Recommendation Comments 1. Recommend to modify [facility] diet to 60 gm to meet pt's kcal needs 2. Continue with low Na diet w / nonfat milk as ordered, which will provide 100% of nutritional needs 3. Consider adding nutrition supplement if PO intake <75% 4. Monitor renal and glucose labs, skin integrity, wt, and PO intake 5. F/U as moderate risk in 3-5 days, 10/08-10/10 Expected Outcomes/Goals Expected Outcomes/Goals 1. PO intake to meet at least 75% of all meals 2. Wt stability, wounds to heal, and nutrition related labs to approach normal limits Reviewed by Rahel Minaya RD
--- NOTE | 2018-10-07 14:23 | Internal Medicine Prog Note ---
Internal Medicine Subjective - Subjective Patient seen and examined:: chart reviewed Patient is:: awake, other (weak,anxious) Per staff patient has:: no adverse event, tolerating meds Internal Medicine Objective - Results Result Diagrams: 10/07/18 05:50 10/07/18 05:50 Recent Labs: Laboratory Last Values WBC 8.7 Th/cmm (4.8-10.8) 10/07/18 05:50 RBC 4.59 Mil/cmm (4.30-5.70) 10/07/18 05:50 Hgb 12.8 gm/dL (12-16) 10/07/18 05:50 Hct 38.5 % (41.0-60) L 10/07/18 05:50 MCV 83.8 fl (80-99) 10/07/18 05:50 MCH 27.9 pg (26.0-30.0) 10/07/18 05:50 MCHC Differential 33.3 pg (28.0-36.0) 10/07/18 05:50 RDW 14.8 % (11.5-20.0) 10/07/18 05:50 Plt Count 207 Th/cmm (150-400) 10/07/18 05:50 MPV 8.6 fl 10/07/18 05:50 Add Manual Diff YES 10/05/18 05:15 Neutrophils % 67.4 % (40.0-80.0) 10/07/18 05:50 Band Neutrophils % 1 % (0-10) 10/05/18 05:15 Lymphocytes % 14.5 % (20.0-50.0) L 10/07/18 05:50 Monocytes % 12.0 % (2.0-10.0) H 10/07/18 05:50 Eosinophils % 5.4 % (0.0-5.0) H 10/07/18 05:50 Basophils % 0.7 % (0.0-2.0) 10/07/18 05:50 Neutrophils (Manual) 65 % (40-80) 10/05/18 05:15 Lymphocytes 20 % (20-50) 10/05/18 05:15 Monocytes 6 % (2-10) 10/05/18 05:15 Eosinophils 8 % (0-5) H 10/05/18 05:15 Basophils 0 % (0-3) 10/05/18 05:15 Eos Smear Source URINE 10/05/18 00:00 Eos Smear Total Cells NONE SEEN (NONE SEEN) 10/05/18 00:00 PT 10.0 SECONDS (9.5-11.5) 10/05/18 05:15 INR 0.99 (0.5-1.4) 10/05/18 05:15 PTT (Actin FS) 27.2 SECONDS (26.0-38.0) 10/05/18 05:15 Sodium 138 mEq/L (136-145) 10/07/18 05:50 Potassium 4.3 mEq/L (3.5-5.1) 10/07/18 05:50 Chloride 107 mEq/L (98-107) 10/07/18 05:50 Carbon Dioxide 22.6 mEq/L (21.0-31.0) 10/07/18 05:50 Anion Gap 12.7 (7.0-16.0) 10/07/18 05:50 BUN 24 mg/dL (7-25) 10/07/18 05:50 Creatinine 1.7 mg/dL (0.7-1.3) H 10/07/18 05:50 Est GFR ( Amer) 53.9 ml/min (>90) 10/07/18 05:50 Est GFR (Non-Af Amer) 44.5 ml/min 10/07/18 05:50 BUN/Creatinine Ratio 14.1 10/07/18 05:50 Glucose 103 mg/dL (70-105) 10/07/18 05:50 POC Glucose 93 MG/DL (70 - 105) 10/07/18 11:50 Calcium 8.5 mg/dL (8.6-10.3) L 10/07/18 05:50 Phosphorus 4.2 mg/dL (2.5-5.0) 10/05/18 05:15 Magnesium 1.9 mg/dL (1.9-2.7) 10/05/18 05:15 Total Bilirubin 0.3 mg/dL (0.3-1.0) 10/06/18 08:45 AST 17 U/L (13-39) 10/06/18 08:45 ALT 11 U/L (7-52) 10/06/18 08:45 Alkaline Phosphatase 68 U/L (34-104) 10/06/18 08:45 Troponin I 0.05 ng/mL (0.01-0.05) 10/03/18 18:50 Total Protein 6.8 gm/dL (6.0-8.3) 10/06/18 08:45 Albumin 3.7 gm/dL (4.2-5.5) L 10/06/18 08:45 Globulin 3.1 gm/dL 10/06/18 08:45 Albumin/Globulin Ratio 1.2 (1.0-1.8) 10/06/18 08:45 TSH 0.44 uIU/ml (0.34-5.60) 10/03/18 18:50 Urine Source CLEAN C 10/05/18 00:00 Urine Color YELLOW 10/05/18 00:00 Urine Clarity HAZY (CLEAR) 10/05/18 00:00 Urine pH 5.5 (4.6 - 8.0) 10/05/18 00:00 Ur Specific [place] 1.015 (1.005-1.030) 10/05/18 00:00 Urine Protein NEGATIVE mg/dL (NEGATIVE) 10/05/18 00:00 Urine Glucose (UA) NEGATIVE mg/dL (NEGATIVE) 10/05/18 00:00 Urine Ketones NEGATIVE mg/dL (NEGATIVE) 10/05/18 00:00 Urine Blood NEGATIVE (NEGATIVE) 10/05/18 00:00 Urine Nitrate NEGATIVE (NEGATIVE) 10/05/18 00:00 Urine Bilirubin NEGATIVE (NEGATIVE) 10/05/18 00:00 Urine Urobilinogen 0.2 E.U./dL (0.2 - 1.0) 10/05/18 00:00 Ur Leukocyte Esterase SMALL (NEGATIVE) H 10/05/18 00:00 Urine RBC 0-2 /hpf (0-5) H 10/05/18 00:00 Urine WBC 10-25 /hpf (0-5) H 10/05/18 00:00 Ur Epithelial Cells NONE SEEN /lpf (FEW) 10/05/18 00:00 Urine Bacteria MODERATE /hpf (NONE SEEN) H 10/05/18 00:00 Ur Random Sodium 64 mmol/L 10/05/18 00:00 Urine Creatinine 69.0 mg/dl (39.0-259.0) 10/05/18 00:00 Microalb/Creat Ratio 87.3 mg/g creat (0.0-30.0) H 10/05/18 00:00 Tobramycin Peak 6.2 ug/mL (4.0-10.0) 10/06/18 11:00 Tobramycin Trough 1.1 ug/mL (0.5-2.0) 10/06/18 08:45 Random Vancomycin 23.4 ug/mL (5.0-40.0) 10/07/18 05:50 - Physical Exam Vitals and I&O: Vital Signs Temp 98.2 F 10/07/18 11:52 Pulse 68 10/07/18 11:52 Resp 18 10/07/18 11:55 BP 127/83 10/07/18 11:52 Pulse Ox 97 10/07/18 11:52 Intake & Output 10/06/18 10/07/18 10/07/18 18:59 06:59 18:59 Intake Total 1000 1890 920.833 Output Total 2960 Balance 1000 -1070 920.833 Weight (lbs) 73.936 kg Intake: Intake, IV Amount 1000 1050 920.833 Sodium Chloride 0.45% 1, 1000 1000 920.833 000 ml @ 125 mls/hr IV . Q8H [facility] Rx#:[id number] cefTRIAXone 1 gm In 50 Sodium Chloride 0.9% 50 ml @ 100 mls/hr IV Q24HR [facility] Rx#:[id number] Oral 840 Output: Drainage 30 RIGHT BUTTOCK 30 Urine 2900 Hemodialysis 30 Other: # Bowel Movements 0 Weight Source Bedscale Active Medications: Current Medications Acetaminophen (Tylenol Extra Strength) 1,000 mg PO Q4HR PRN PRN Reason: Pain (Moderate) LEVEL 4-6 Stop: 12/02/18 22:52 Acetaminophen (Tylenol) 650 mg PO DAILY [facility] Stop: 12/03/18 08:59 Last Admin: 10/07/18 08:47 Dose: Not Given Acetaminophen (Tylenol) 650 mg PO Q4H PRN PRN Reason: MILD PAIN OR TEMP >101 Amitriptyline HCl (Elavil) 50 mg PO HS [facility] Stop: 12/03/18 20:59 Last Admin: 10/06/18 20:15 Dose: 50 mg Ascorbic Acid (Vitamin C) 500 mg PO DAILY [facility] Stop: 12/04/18 08:59 Last Admin: 10/07/18 08:44 Dose: 500 mg Aspirin (Aspirin Chewable) 81 mg PO DAILY [facility] Stop: 12/04/18 08:59 Last Admin: 10/07/18 08:44 Dose: 81 mg Baclofen (Lioresal) 10 mg PO Q8H [facility] Stop: 12/03/18 15:59 Last Admin: 10/07/18 08:44 Dose: 10 mg [place] Oil/[place]ish Balsam/Trypsin (Venelex) 1 appl TP DAILY [facility] Stop: 12/04/18 16:59 Last Admin: 10/07/18 08:47 Dose: 1 appl Cholecalciferol (Vitamin D3) 1,000 iu PO DAILY [facility] Stop: 12/04/18 08:59 Last Admin: 10/07/18 08:44 Dose: 1,000 iu Docusate Sodium (Colace) 100 mg PO DAILY [facility] Stop: 12/04/18 08:59 Last Admin: 10/07/18 08:47 Dose: Not Given Hydromorphone HCl (Dilaudid) 2 mg IVP Q3H PRN PRN Reason: SEVERE PAIN Stop: 12/04/18 14:18 Last Admin: 10/07/18 12:56 Dose: 2 mg Ceftriaxone Sodium 1 gm/ (Sodium Chloride) 50 mls @ 100 mls/hr IV Q24HR [facility] Stop: 12/03/18 20:59 Last Infusion: 10/06/18 20:45 Dose: Infused Sodium Chloride (Nacl 0.45%) 1,000 mls @ 125 mls/hr IV .Q8H [facility] Stop: 12/02/18 22:12 Last Admin: 10/07/18 09:51 Dose: 125 mls/hr Tobramycin Sulfate 120 mg/ (Sodium Chloride) 103 mls @ 100 mls/hr IV Q24HR [facility] Stop: 12/06/18 08:59 Last Admin: 10/07/18 09:50 Dose: 100 mls/hr Vancomycin HCl 1.5 gm/ Sodium (Chloride) 500 mls @ 250 mls/hr IV Q24H [facility] Stop: 12/06/18 20:59 Insulin Aspart (Novolog Insulin Sliding Scale) 0 units SUBQ ACHS [facility]; Protocol Stop: 12/04/18 16:29 Last Admin: 10/07/18 11:57 Dose: Not Given Lisinopril (Zestril) 10 mg PO DAILY [facility] Stop: 12/04/18 08:59 Last Admin: 10/07/18 08:45 Dose: 10 mg Magnesium Hydroxide (Milk Of Magnesia) 30 ml PO HS PRN PRN Reason: Constipation Stop: 12/03/18 14:39 Miscellaneous (Duloxetine Hcl [Cymbalta]) 20 mg PO DAILY [facility] Stop: 12/04/18 08:59 Miscellaneous (Tobramycin Iv Per Pharmacy) 1 ea PRN PRN PRN Reason: RX DOSING Stop: 12/03/18 16:04 Miscellaneous (Vancomycin Iv Per Pharmacy) 1 [facility] PRN AMPARO Stop: 12/04/18 23:44 Mupirocin (Bactroban Oint) 1 appl NS BID [facility] Stop: 10/10/18 09:01 Last Admin: 10/07/18 08:47 Dose: 1 appl Ondansetron HCl (Zofran) 4 mg IV Q6H PRN PRN Reason: Nausea / Vomiting Stop: 12/02/18 22:12 Pregabalin (Lyrica) 150 mg PO BID [facility] Stop: 12/03/18 16:59 Last Admin: 10/07/18 08:44 Dose: 150 mg General: alert, other (laceration in left eyebrow) HEENT: NC/AT Neck: Supple Lungs: CTAB Cardiovascular: RRR Abdomen: soft, non-tender Extremities: clear, edema Neurological: no change - Procedures Procedures: Procedures Procedure Code Date EXCISION OF RIGHT PELVIC BONE, OPEN APPROACH [id number] 10/03/18 EXCISION OF RIGHT UPPER FEMUR, OPEN APPROACH [id number] 07/25/18 INSPECTION OF LOWER INTESTINAL TRACT, ENDO [id number] 05/20/18 REPAIR ABDOMINAL WALL, OPEN APPROACH [id number] 07/25/18 Internal Medicine Assmt/Plan - Assessment Assessment: sepsis s/p fall laceration of left eyebrown head trauma decubitus ulcer infected elevated white cells with leukocytosis renal failure dm - Plan Plan: as per order sheet Nutritional Asmnt/Malnutr-PDOC - Dietary Evaluation Malnutrition Findings (Please click <Entered> for more info): Nutritional Asmnt/Malnutrition Start: 10/05/18 14: 30 Text: Status: Complete Freq: Protocol: Document 10/05/18 14:30 FADI (Rec: 10/05/18 15:14 [email or web address] [email or web address]) Nutritional Asmnt/Malnutrition Patient General Information Nutritional Screening High Risk Consult Diagnosis infected decubiti, leukocytosis Pertinent Medical Hx/Surgical Hx HTN, DM, asthma, COPD, bilateral BKA, depression, bilateral PNA Subjective Information Received diet consult for low christina. Pt was undergoing a medical procedure at time of visit; unable to speak with him. Nursing noted PO intake: 0-75% yesterday. Per nurse note, pt had excisional debridement for right hip decubitus ulcer. Per MD note, current internal medicine assessment includes sepsis and renal failure. BMI 24.9 adjusted by bi BKA. Current Diet Order/ Nutrition Support CCHO 45 gm, low Na, nonfat milk Pertinent Medications Vit C, Vit D3, colace, novolog , tobramycin, Nacl 0.45% Pertinent Labs 10/05: BUN 28, Cr 1.9, Ca 8.5, POC 76-102, Phos 4.2 10/04: BUN 28, Cr 2.1, Ca 9.1, POC 114-154 Nutritional Hx/Data Height 1.83 m Height (Calculated Centimeters) 182.9 Current Weight (lbs) 73.981 kg Weight (Calculated Kilograms) 74.0 Weight (Calculated Grams) 65289.9 Ingram Body Weight 157 lb (adj for bilateral AKA) Body Mass Index (BMI) 22.1 Weight Status Approriate GI Symptoms GI Symptoms None Last BM none noted Difficult in: None Food Allergies Yes: pineapple, strawberry, mushroom Skin Integrity/Comment: bilateral BKA, 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 Problem Problem Altered nutrition related lab values Etiology dx of renal failure per MD note Signs/Symptoms: BUN 28, Cr 1.9, GFR 42.2 1. Problem Problem Increased nutrient needs Etiology wound healing, impaired skin integrity, sepsis Signs/Symptoms: ulcer/wound to buttocks and posterior thigh Malnutrition Alert Is there a minimum of two criteria No selected? Query Text:Check all the applicable criteria. A minimum of two criteria are recommended for diagnosis of either severe or non-severe malnutrition. Malnutrition Related to Morbid Obesity Malnutrition related to morbid obesity No Intervention/Recommendation Comments 1. Recommend to modify CCHO diet to 60 gm to meet pt's kcal needs 2. Continue with low Na diet w / nonfat milk as ordered, which will provide 100% of nutritional needs 3. Consider adding nutrition supplement if PO intake <75% 4. Monitor renal and glucose labs, skin integrity, wt, and PO intake 5. F/U as moderate risk in 3-5 days, 10/08-10/10 Expected Outcomes/Goals Expected Outcomes/Goals 1. PO intake to meet at least 75% of all meals 2. Wt stability, wounds to heal, and nutrition related labs to approach normal limits Reviewed by Rahel Minaya RD
--- NOTE | 2018-10-07 15:02 | General Progress Note ---
Subjective - Review of Systems Service Date: 10/07/18 Events since last encounter: extremely uncooperative, wants nurses around only q 3 hrs when he wants he Dilaudid PULLED OUT HIS CHELI DRAIN, DOES NOT WANT WOUND TOUCHED OR INSPECTED Objective - Results Result Diagrams: 10/07/18 05:50 10/07/18 05:50 Recent Labs: Laboratory Last Values WBC 8.7 Th/cmm (4.8-10.8) 10/07/18 05:50 RBC 4.59 Mil/cmm (4.30-5.70) 10/07/18 05:50 Hgb 12.8 gm/dL (12-16) 10/07/18 05:50 Hct 38.5 % (41.0-60) L 10/07/18 05:50 MCV 83.8 fl (80-99) 10/07/18 05:50 MCH 27.9 pg (26.0-30.0) 10/07/18 05:50 MCHC Differential 33.3 pg (28.0-36.0) 10/07/18 05:50 RDW 14.8 % (11.5-20.0) 10/07/18 05:50 Plt Count 207 Th/cmm (150-400) 10/07/18 05:50 MPV 8.6 fl 10/07/18 05:50 Add Manual Diff YES 10/05/18 05:15 Neutrophils % 67.4 % (40.0-80.0) 10/07/18 05:50 Band Neutrophils % 1 % (0-10) 10/05/18 05:15 Lymphocytes % 14.5 % (20.0-50.0) L 10/07/18 05:50 Monocytes % 12.0 % (2.0-10.0) H 10/07/18 05:50 Eosinophils % 5.4 % (0.0-5.0) H 10/07/18 05:50 Basophils % 0.7 % (0.0-2.0) 10/07/18 05:50 Neutrophils (Manual) 65 % (40-80) 10/05/18 05:15 Lymphocytes 20 % (20-50) 10/05/18 05:15 Monocytes 6 % (2-10) 10/05/18 05:15 Eosinophils 8 % (0-5) H 10/05/18 05:15 Basophils 0 % (0-3) 10/05/18 05:15 Eos Smear Source URINE 10/05/18 00:00 Eos Smear Total Cells NONE SEEN (NONE SEEN) 10/05/18 00:00 PT 10.0 SECONDS (9.5-11.5) 10/05/18 05:15 INR 0.99 (0.5-1.4) 10/05/18 05:15 PTT (Actin FS) 27.2 SECONDS (26.0-38.0) 10/05/18 05:15 Sodium 138 mEq/L (136-145) 10/07/18 05:50 Potassium 4.3 mEq/L (3.5-5.1) 10/07/18 05:50 Chloride 107 mEq/L (98-107) 10/07/18 05:50 Carbon Dioxide 22.6 mEq/L (21.0-31.0) 10/07/18 05:50 Anion Gap 12.7 (7.0-16.0) 10/07/18 05:50 BUN 24 mg/dL (7-25) 10/07/18 05:50 Creatinine 1.7 mg/dL (0.7-1.3) H 10/07/18 05:50 Est GFR ( Amer) 53.9 ml/min (>90) 10/07/18 05:50 Est GFR (Non-Af Amer) 44.5 ml/min 10/07/18 05:50 BUN/Creatinine Ratio 14.1 10/07/18 05:50 Glucose 103 mg/dL (70-105) 10/07/18 05:50 POC Glucose 93 MG/DL (70 - 105) 10/07/18 11:50 Calcium 8.5 mg/dL (8.6-10.3) L 10/07/18 05:50 Phosphorus 4.2 mg/dL (2.5-5.0) 10/05/18 05:15 Magnesium 1.9 mg/dL (1.9-2.7) 10/05/18 05:15 Total Bilirubin 0.3 mg/dL (0.3-1.0) 10/06/18 08:45 AST 17 U/L (13-39) 10/06/18 08:45 ALT 11 U/L (7-52) 10/06/18 08:45 Alkaline Phosphatase 68 U/L (34-104) 10/06/18 08:45 Troponin I 0.05 ng/mL (0.01-0.05) 10/03/18 18:50 Total Protein 6.8 gm/dL (6.0-8.3) 10/06/18 08:45 Albumin 3.7 gm/dL (4.2-5.5) L 10/06/18 08:45 Globulin 3.1 gm/dL 10/06/18 08:45 Albumin/Globulin Ratio 1.2 (1.0-1.8) 10/06/18 08:45 TSH 0.44 uIU/ml (0.34-5.60) 10/03/18 18:50 Urine Source CLEAN C 10/05/18 00:00 Urine Color YELLOW 10/05/18 00:00 Urine Clarity HAZY (CLEAR) 10/05/18 00:00 Urine pH 5.5 (4.6 - 8.0) 10/05/18 00:00 Ur Specific [place] 1.015 (1.005-1.030) 10/05/18 00:00 Urine Protein NEGATIVE mg/dL (NEGATIVE) 10/05/18 00:00 Urine Glucose (UA) NEGATIVE mg/dL (NEGATIVE) 10/05/18 00:00 Urine Ketones NEGATIVE mg/dL (NEGATIVE) 10/05/18 00:00 Urine Blood NEGATIVE (NEGATIVE) 10/05/18 00:00 Urine Nitrate NEGATIVE (NEGATIVE) 10/05/18 00:00 Urine Bilirubin NEGATIVE (NEGATIVE) 10/05/18 00:00 Urine Urobilinogen 0.2 E.U./dL (0.2 - 1.0) 10/05/18 00:00 Ur Leukocyte Esterase SMALL (NEGATIVE) H 10/05/18 00:00 Urine RBC 0-2 /hpf (0-5) H 10/05/18 00:00 Urine WBC 10-25 /hpf (0-5) H 10/05/18 00:00 Ur Epithelial Cells NONE SEEN /lpf (FEW) 10/05/18 00:00 Urine Bacteria MODERATE /hpf (NONE SEEN) H 10/05/18 00:00 Ur Random Sodium 64 mmol/L 10/05/18 00:00 Urine Creatinine 69.0 mg/dl (39.0-259.0) 10/05/18 00:00 Microalb/Creat Ratio 87.3 mg/g creat (0.0-30.0) H 10/05/18 00:00 Tobramycin Peak 6.2 ug/mL (4.0-10.0) 10/06/18 11:00 Tobramycin Trough 1.1 ug/mL (0.5-2.0) 10/06/18 08:45 Random Vancomycin 23.4 ug/mL (5.0-40.0) 10/07/18 05:50 - Physical Exam Vitals and I&O: Vital Signs Temp 98.2 F 10/07/18 11:52 Pulse 68 10/07/18 11:52 Resp 18 10/07/18 11:55 BP 127/83 10/07/18 11:52 Pulse Ox 97 10/07/18 11:52 Intake & Output 10/06/18 10/07/18 10/07/18 18:59 06:59 18:59 Intake Total 1000 1890 920.833 Output Total 2960 Balance 1000 -1070 920.833 Weight (lbs) 73.936 kg Intake: Intake, IV Amount 1000 1050 920.833 Sodium Chloride 0.45% 1, 1000 1000 920.833 000 ml @ 125 mls/hr IV . Q8H [facility] Rx#:[id number] cefTRIAXone 1 gm In 50 Sodium Chloride 0.9% 50 ml @ 100 mls/hr IV Q24HR [facility] Rx#:[id number] Oral 840 Output: Drainage 30 RIGHT BUTTOCK 30 Urine 2900 Hemodialysis 30 Other: # Bowel Movements 0 Weight Source Bedscale Active Medications: Current Medications Acetaminophen (Tylenol Extra Strength) 1,000 mg PO Q4HR PRN PRN Reason: Pain (Moderate) LEVEL 4-6 Stop: 12/02/18 22:52 Acetaminophen (Tylenol) 650 mg PO DAILY [facility] Stop: 12/03/18 08:59 Last Admin: 10/07/18 08:47 Dose: Not Given Acetaminophen (Tylenol) 650 mg PO Q4H PRN PRN Reason: MILD PAIN OR TEMP >101 Amitriptyline HCl (Elavil) 50 mg PO HS [facility] Stop: 12/03/18 20:59 Last Admin: 10/06/18 20:15 Dose: 50 mg Ascorbic Acid (Vitamin C) 500 mg PO DAILY [facility] Stop: 12/04/18 08:59 Last Admin: 10/07/18 08:44 Dose: 500 mg Aspirin (Aspirin Chewable) 81 mg PO DAILY [facility] Stop: 12/04/18 08:59 Last Admin: 10/07/18 08:44 Dose: 81 mg Baclofen (Lioresal) 10 mg PO Q8H [facility] Stop: 12/03/18 15:59 Last Admin: 10/07/18 08:44 Dose: 10 mg [place] Oil/P[place]dein[place] Balsam/Trypsin (Venelex) 1 appl TP DAILY [facility] Stop: 12/04/18 16:59 Last Admin: 10/07/18 08:47 Dose: 1 appl Cholecalciferol (Vitamin D3) 1,000 iu PO DAILY [facility] Stop: 12/04/18 08:59 Last Admin: 10/07/18 08:44 Dose: 1,000 iu Docusate Sodium (Colace) 100 mg PO DAILY [facility] Stop: 12/04/18 08:59 Last Admin: 10/07/18 08:47 Dose: Not Given Hydromorphone HCl (Dilaudid) 2 mg IVP Q3H PRN PRN Reason: SEVERE PAIN Stop: 12/04/18 14:18 Last Admin: 10/07/18 12:56 Dose: 2 mg Ceftriaxone Sodium 1 gm/ (Sodium Chloride) 50 mls @ 100 mls/hr IV Q24HR [facility] Stop: 12/03/18 20:59 Last Infusion: 10/06/18 20:45 Dose: Infused Sodium Chloride (Nacl 0.45%) 1,000 mls @ 125 mls/hr IV .Q8H [facility] Stop: 12/02/18 22:12 Last Admin: 10/07/18 09:51 Dose: 125 mls/hr Tobramycin Sulfate 120 mg/ (Sodium Chloride) 103 mls @ 100 mls/hr IV Q24HR [facility] Stop: 12/06/18 08:59 Last Admin: 10/07/18 09:50 Dose: 100 mls/hr Vancomycin HCl 1.5 gm/ Sodium (Chloride) 500 mls @ 250 mls/hr IV Q24H [facility] Stop: 12/06/18 20:59 Insulin Aspart (Novolog Insulin Sliding Scale) 0 units SUBQ ACHS [facility]; Protocol Stop: 12/04/18 16:29 Last Admin: 10/07/18 11:57 Dose: Not Given Lisinopril (Zestril) 10 mg PO DAILY [facility] Stop: 12/04/18 08:59 Last Admin: 10/07/18 08:45 Dose: 10 mg Magnesium Hydroxide (Milk Of Magnesia) 30 ml PO HS PRN PRN Reason: Constipation Stop: 12/03/18 14:39 Miscellaneous (Duloxetine Hcl [Cymbalta]) 20 mg PO DAILY [facility] Stop: 12/04/18 08:59 Miscellaneous (Tobramycin Iv Per Pharmacy) 1 [facility] PRN PRN PRN Reason: RX DOSING Stop: 12/03/18 16:04 Miscellaneous (Vancomycin Iv Per Pharmacy) 1 [facility] PRN [facility] Stop: 12/04/18 23:44 Mupirocin (Bactroban Oint) 1 appl NS BID [facility] Stop: 10/10/18 09:01 Last Admin: 10/07/18 08:47 Dose: 1 appl Ondansetron HCl (Zofran) 4 mg IV Q6H PRN PRN Reason: Nausea / Vomiting Stop: 12/02/18 22:12 Pregabalin (Lyrica) 150 mg PO BID [facility] Stop: 12/03/18 16:59 Last Admin: 10/07/18 08:44 Dose: 150 mg General: Alert, Mild distress HEENT: Atraumatic, Mucous membr. moist/pink Neck: Supple, +2 carotid pulse wo bruit Cardiovascular: Regular rate, Normal S1, Normal S2 Lungs: Clear to auscultation Abdomen: Bowel sounds, Soft Extremities: no Edema Neurological: Sensation intact Skin: no Rash Psych/Mental Status: Mood NL - Procedures Procedures: Procedures Procedure Code Date EXCISION OF RIGHT PELVIC BONE, OPEN APPROACH [id number] 10/03/18 EXCISION OF RIGHT UPPER FEMUR, OPEN APPROACH [id number] 07/25/18 INSPECTION OF LOWER INTESTINAL TRACT, ENDO [id number] 05/20/18 REPAIR ABDOMINAL WALL, OPEN APPROACH [id number] 07/25/18 Assessment/Plan - Problem List Patient Problems: All Active Problems FALL WITH LACERATION TO LEFT FRONTAL (Acute) Nutritional Asmnt/Malnutr-PDOC - Dietary Evaluation Malnutrition Findings (Please click <Entered> for more info): Nutritional Asmnt/Malnutrition Start: 10/05/18 14: 30 Text: Status: Complete Freq: Protocol: Document 10/05/18 14:30 FADI (Rec: 10/05/18 15:14 FADI [email or web address]) Nutritional Asmnt/Malnutrition Patient General Information Nutritional Screening High Risk Consult Diagnosis infected decubiti, leukocytosis Pertinent Medical Hx/Surgical Hx HTN, DM, asthma, COPD, bilateral BKA, depression, bilateral PNA Subjective Information Received diet consult for low christina. Pt was undergoing a medical procedure at time of visit; unable to speak with him. Nursing noted PO intake: 0-75% yesterday. Per nurse note, pt had excisional debridement for right hip decubitus ulcer. Per MD note, current internal medicine assessment includes sepsis and renal failure. BMI 24.9 adjusted by bi BKA. Current Diet Order/ Nutrition Support CCHO 45 gm, low Na, nonfat milk Pertinent Medications Vit C, Vit D3, colace, novolog , tobramycin, Nacl 0.45% Pertinent Labs 10/05: BUN 28, Cr 1.9, Ca 8.5, POC 76-102, Phos 4.2 10/04: BUN 28, Cr 2.1, Ca 9.1, POC 114-154 Nutritional Hx/Data Height 1.83 m Height (Calculated Centimeters) 182.9 Current Weight (lbs) 73.981 kg Weight (Calculated Kilograms) 74.0 Weight (Calculated Grams) 28033.9 [place] Body Weight 157 lb (adj for bilateral AKA) Body Mass Index (BMI) 22.1 Weight Status Approriate GI Symptoms GI Symptoms None Last BM none noted Difficult in: None Food Allergies Yes: pineapple, strawberry, mushroom Skin Integrity/Comment: bilateral BKA, 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 Problem Problem Altered nutrition related lab values Etiology dx of renal failure per MD note Signs/Symptoms: BUN 28, Cr 1.9, GFR 42.2 1. Problem Problem Increased nutrient needs Etiology wound healing, impaired skin integrity, sepsis Signs/Symptoms: ulcer/wound to buttocks and posterior thigh Malnutrition Alert Is there a minimum of two criteria No selected? Query Text:Check all the applicable criteria. A minimum of two criteria are recommended for diagnosis of either severe or non-severe malnutrition. Malnutrition Related to Morbid Obesity Malnutrition related to morbid obesity No Intervention/Recommendation Comments 1. Recommend to modify CCHO diet to 60 gm to meet pt's kcal needs 2. Continue with low Na diet w / nonfat milk as ordered, which will provide 100% of nutritional needs 3. Consider adding nutrition supplement if PO intake <75% 4. Monitor renal and glucose labs, skin integrity, wt, and PO intake 5. F/U as moderate risk in 3-5 days, 10/08-10/10 Expected Outcomes/Goals Expected Outcomes/Goals 1. PO intake to meet at least 75% of all meals 2. Wt stability, wounds to heal, and nutrition related labs to approach normal limits Reviewed by Rahel Minaya RD
[2018-10-07] MEDS ORDERED: Probiotic Screen MC PRN (15:30)
--- NOTE | 2018-10-07 15:41 | Consultation ---
DATE OF CONSULTATION: 10/06/2018 HISTORY OF PRESENT ILLNESS: A 57-year-old male admitted after a fall. The patient is in a wheelchair. The patient says that he was trying to get urine while he fell, hit his left eyebrow, has a laceration there. The patient has no loss of consciousness. At the moment, awake and alert. PAST MEDICAL HISTORY: 1. Diabetes. 2. Essentially blind. 3. The patient has history of bilateral leg amputations. 4. The patient with chronic pain syndrome. 5. The patient has colostomy, prevention of infection of the ulcers. 6. Diabetes. 7. Neuropathy. 8. COPD. 9. Hyperlipidemia. 10. Depression. 11. Nicotine dependence. MEDICATIONS: As per reconciliation. Here, the patient is on amitriptyline 50 at bedtime, aspirin, baclofen, Dilaudid, lisinopril, vancomycin, Lyrica. PHYSICAL EXAMINATION: VITAL SIGNS: Temperature 98.7, blood pressure 130/80, pulse is 78. NECK: Supple, no bruits. HEART: Sounds S1, S2. LUNGS: Clear. ABDOMEN: Colostomy. NEUROLOGIC: The patient is lying in bed. Awake. Vision is very poor. The patient just kind of makes shadows on the TV. The patient lifts both arms up. The patient has bilateral leg weakness. INVESTIGATIONS: CT scan of the head, no acute process. Nasal deviation. LABORATORY DATA: WBC 9.7, hemoglobin 13.4. Sodium 137, potassium 4.7, BUN 26, creatinine 1.8. ASSESSMENT: 1. Fall. 2. Head injury. 3. Abrasion, left eyebrow. The patient is blind. 4. Bilateral leg amputation. 5. Chronic pain syndrome. 6. Chronic obstructive pulmonary disease. JOB# [id number]
[2018-10-07] MEDS: cefTRIAXone 1 GM in Sodium Chloride 0.9% 50 ML IV SCH (20:24)
[2018-10-07] MEDS: Vancomycin HCl 1.5 GM in Sodium Chloride 0.9% 500 ML IV SCH (22:37)
--- NOTE | 2018-10-08 01:32 | Infectious Disease Prog Note ---
Infectious Disease Subjective - Review of Systems Service Date: 10/08/18 Subjective: There is no new change, no fever. Infectious Disease Objective - Results Result Diagrams: 10/07/18 05:50 10/07/18 05:50 Recent Labs: Laboratory Last Values WBC 8.7 Th/cmm (4.8-10.8) 10/07/18 05:50 RBC 4.59 Mil/cmm (4.30-5.70) 10/07/18 05:50 Hgb 12.8 gm/dL (12-16) 10/07/18 05:50 Hct 38.5 % (41.0-60) L 10/07/18 05:50 MCV 83.8 fl (80-99) 10/07/18 05:50 MCH 27.9 pg (26.0-30.0) 10/07/18 05:50 MCHC Differential 33.3 pg (28.0-36.0) 10/07/18 05:50 RDW 14.8 % (11.5-20.0) 10/07/18 05:50 Plt Count 207 Th/cmm (150-400) 10/07/18 05:50 MPV 8.6 fl 10/07/18 05:50 Add Manual Diff YES 10/05/18 05:15 Neutrophils % 67.4 % (40.0-80.0) 10/07/18 05:50 Band Neutrophils % 1 % (0-10) 10/05/18 05:15 Lymphocytes % 14.5 % (20.0-50.0) L 10/07/18 05:50 Monocytes % 12.0 % (2.0-10.0) H 10/07/18 05:50 Eosinophils % 5.4 % (0.0-5.0) H 10/07/18 05:50 Basophils % 0.7 % (0.0-2.0) 10/07/18 05:50 Neutrophils (Manual) 65 % (40-80) 10/05/18 05:15 Lymphocytes 20 % (20-50) 10/05/18 05:15 Monocytes 6 % (2-10) 10/05/18 05:15 Eosinophils 8 % (0-5) H 10/05/18 05:15 Basophils 0 % (0-3) 10/05/18 05:15 Eos Smear Source URINE 10/05/18 00:00 Eos Smear Total Cells NONE SEEN (NONE SEEN) 10/05/18 00:00 PT 10.0 SECONDS (9.5-11.5) 10/05/18 05:15 INR 0.99 (0.5-1.4) 10/05/18 05:15 PTT (Actin FS) 27.2 SECONDS (26.0-38.0) 10/05/18 05:15 Sodium 138 mEq/L (136-145) 10/07/18 05:50 Potassium 4.3 mEq/L (3.5-5.1) 10/07/18 05:50 Chloride 107 mEq/L (98-107) 10/07/18 05:50 Carbon Dioxide 22.6 mEq/L (21.0-31.0) 10/07/18 05:50 Anion Gap 12.7 (7.0-16.0) 10/07/18 05:50 BUN 24 mg/dL (7-25) 10/07/18 05:50 Creatinine 1.7 mg/dL (0.7-1.3) H 10/07/18 05:50 Est GFR ( Amer) 53.9 ml/min (>90) 10/07/18 05:50 Est GFR (Non-Af Amer) 44.5 ml/min 10/07/18 05:50 BUN/Creatinine Ratio 14.1 10/07/18 05:50 Glucose 103 mg/dL (70-105) 10/07/18 05:50 POC Glucose 121 MG/DL (70 - 105) H 10/07/18 20:23 Calcium 8.5 mg/dL (8.6-10.3) L 10/07/18 05:50 Phosphorus 4.2 mg/dL (2.5-5.0) 10/05/18 05:15 Magnesium 1.9 mg/dL (1.9-2.7) 10/05/18 05:15 Total Bilirubin 0.3 mg/dL (0.3-1.0) 10/06/18 08:45 AST 17 U/L (13-39) 10/06/18 08:45 ALT 11 U/L (7-52) 10/06/18 08:45 Alkaline Phosphatase 68 U/L (34-104) 11/13/18 08:45 Troponin I 0.05 ng/mL (0.01-0.05) 10/03/18 18:50 Total Protein 6.8 gm/dL (6.0-8.3) 10/06/18 08:45 Albumin 3.7 gm/dL (4.2-5.5) L 10/06/18 08:45 Globulin 3.1 gm/dL 10/06/18 08:45 Albumin/Globulin Ratio 1.2 (1.0-1.8) 10/06/18 08:45 TSH 0.44 uIU/ml (0.34-5.60) 10/03/18 18:50 Urine Source CLEAN C 10/05/18 00:00 Urine Color YELLOW 10/05/18 00:00 Urine Clarity HAZY (CLEAR) 10/05/18 00:00 Urine pH 5.5 (4.6 - 8.0) 10/05/18 00:00 Ur Specific [place] 1.015 (1.005-1.030) 10/05/18 00:00 Urine Protein NEGATIVE mg/dL (NEGATIVE) 10/05/18 00:00 Urine Glucose (UA) NEGATIVE mg/dL (NEGATIVE) 10/05/18 00:00 Urine Ketones NEGATIVE mg/dL (NEGATIVE) 10/05/18 00:00 Urine Blood NEGATIVE (NEGATIVE) 10/05/18 00:00 Urine Nitrate NEGATIVE (NEGATIVE) 10/05/18 00:00 Urine Bilirubin NEGATIVE (NEGATIVE) 10/05/18 00:00 Urine Urobilinogen 0.2 E.U./dL (0.2 - 1.0) 10/05/18 00:00 Ur Leukocyte Esterase SMALL (NEGATIVE) H 10/05/18 00:00 Urine RBC 0-2 /hpf (0-5) H 10/05/18 00:00 Urine WBC 10-25 /hpf (0-5) H 10/05/18 00:00 Ur Epithelial Cells NONE SEEN /lpf (FEW) 10/05/18 00:00 Urine Bacteria MODERATE /hpf (NONE SEEN) H 10/05/18 00:00 Ur Random Sodium 64 mmol/L 10/05/18 00:00 Urine Creatinine 69.0 mg/dl (39.0-259.0) 10/05/18 00:00 Microalb/Creat Ratio 87.3 mg/g creat (0.0-30.0) H 10/05/18 00:00 Tobramycin Peak 6.2 ug/mL (4.0-10.0) 10/06/18 11:00 Tobramycin Trough 1.1 ug/mL (0.5-2.0) 10/06/18 08:45 Random Vancomycin 23.4 ug/mL (5.0-40.0) 10/07/18 05:50 - Physical Exam Vitals and I&O: Vital Signs Temp 98.4 F 10/08/18 00:00 Pulse 79 10/08/18 00:00 Resp 17 10/08/18 00:00 BP 117/96 10/08/18 00:00 Pulse Ox 94 10/08/18 00:00 Intake & Output 10/07/18 10/07/18 10/08/18 06:59 18:59 06:59 Intake Total 1890 4797.850 9799 Output Total 2960 2020 Balance -1070 -99.167 1000 Weight (lbs) 73.936 kg 74.843 kg Intake: Intake, IV Amount 1050 853.048 4171 Sodium Chloride 0.45% 1, 1000 489.081 2972 000 ml @ 125 mls/hr IV . Q8H [facility] Rx#:[id number] cefTRIAXone 1 gm In 50 Sodium Chloride 0.9% 50 ml @ 100 mls/hr IV Q24HR [facility] Rx#:[id number] Oral 840 1000 Output: Drainage 30 20 RIGHT BUTTOCK 30 20 Urine 2900 2000 Hemodialysis 30 Other: # Bowel Movements 0 1 Weight Source Bedscale Bedscale Active Medications: Current Medications Acetaminophen (Tylenol Extra Strength) 1,000 mg PO Q4HR PRN PRN Reason: Pain (Moderate) LEVEL 4-6 Stop: 12/02/18 22:52 Acetaminophen (Tylenol) 650 mg PO DAILY [facility] Stop: 12/03/18 08:59 Last Admin: 10/07/18 08:47 Dose: Not Given Acetaminophen (Tylenol) 650 mg PO Q4H PRN PRN Reason: MILD PAIN OR TEMP >101 Amitriptyline HCl (Elavil) 50 mg PO HS [facility] Stop: 12/03/18 20:59 Last Admin: 10/07/18 20:21 Dose: 50 mg Ascorbic Acid (Vitamin C) 500 mg PO DAILY [facility] Stop: 12/04/18 08:59 Last Admin: 10/07/18 08:44 Dose: 500 mg Aspirin (Aspirin Chewable) 81 mg PO DAILY [facility] Stop: 12/04/18 08:59 Last Admin: 10/07/18 08:44 Dose: 81 mg Baclofen (Lioresal) 10 mg PO Q8H [facility] Stop: 12/03/18 15:59 Last Admin: 10/07/18 16:28 Dose: 10 mg [place] Oil/Canadian Balsam/Trypsin (Venelex) 1 appl TP DAILY [facility] Stop: 12/04/18 16:59 Last Admin: 10/07/18 08:47 Dose: 1 appl Cholecalciferol (Vitamin D3) 1,000 iu PO DAILY [facility] Stop: 12/04/18 08:59 Last Admin: 10/07/18 08:44 Dose: 1,000 iu Docusate Sodium (Colace) 100 mg PO DAILY [facility] Stop: 12/04/18 08:59 Last Admin: 10/07/18 08:47 Dose: Not Given Hydromorphone HCl (Dilaudid) 2 mg IVP Q3H PRN PRN Reason: SEVERE PAIN Stop: 12/04/18 14:18 Last Admin: 10/07/18 22:31 Dose: 2 mg Ceftriaxone Sodium 1 gm/ (Sodium Chloride) 50 mls @ 100 mls/hr IV Q24HR [facility] Stop: 12/03/18 20:59 Last Admin: 10/07/18 20:24 Dose: 100 mls/hr Sodium Chloride (Nacl 0.45%) 1,000 mls @ 125 mls/hr IV .Q8H [facility] Stop: 12/02/18 22:12 Last Admin: 10/07/18 20:31 Dose: 125 mls/hr Tobramycin Sulfate 120 mg/ (Sodium Chloride) 103 mls @ 100 mls/hr IV Q24HR [facility] Stop: 12/06/18 08:59 Last Admin: 10/07/18 09:50 Dose: 100 mls/hr Vancomycin HCl 1.5 gm/ Sodium (Chloride) 500 mls @ 250 mls/hr IV Q24H [facility] Stop: 12/06/18 20:59 Last Admin: 10/07/18 22:37 Dose: 250 mls/hr Insulin Aspart (Novolog Insulin Sliding Scale) 0 units SUBQ ACHS [facility]; Protocol Stop: 12/04/18 16:29 Last Admin: 10/07/18 20:25 Dose: Not Given Lactobacillus Rhamnosus (Culturelle 15b) 1 each PO DAILY [facility] Stop: 12/07/18 08:59 Lisinopril (Zestril) 10 mg PO DAILY [facility] Stop: 12/04/18 08:59 Last Admin: 10/07/18 08:45 Dose: 10 mg Magnesium Hydroxide (Milk Of Magnesia) 30 ml PO HS PRN PRN Reason: Constipation Stop: 12/03/18 14:39 Miscellaneous (Duloxetine Hcl [Cymbalta]) 20 mg PO DAILY [facility] Stop: 12/04/18 08:59 Miscellaneous (Tobramycin Iv Per Pharmacy) 1 ea PRN PRN PRN Reason: RX DOSING Stop: 12/03/18 16:04 Miscellaneous (Vancomycin Iv Per Pharmacy) 1 ea PRN [facility] Stop: 12/04/18 23:44 Miscellaneous (Probiotic Screen) 1 ea PRN PRN PRN Reason: PROTOCOL Stop: 12/06/18 15:29 Mupirocin (Bactroban Oint) 1 appl NS BID [facility] Stop: 10/10/18 09:01 Last Admin: 10/07/18 16:29 Dose: 1 appl Ondansetron HCl (Zofran) 4 mg IV Q6H PRN PRN Reason: Nausea / Vomiting Stop: 12/02/18 22:12 Pregabalin (Lyrica) 150 mg PO BID [facility] Stop: 12/03/18 16:59 Last Admin: 10/07/18 16:28 Dose: 150 mg General: no acute distress, well developed, well nourished HEENT: atraumatic, normocephalic, PERRLA Neck: supple, no thyromegaly Cardiovascular: S1S2, regular Lungs: clear to auscultation bilaterally, clear to percussion Abdomen: soft, no tender, no distended Extremities: edema, other (b/l bka), no clubbing Neurological: awake, alert, oriented Skin: other (closed wound right gluteal area.) - Procedures Procedures: Procedures Procedure Code Date EXCISION OF RIGHT PELVIC BONE, OPEN APPROACH [id number] 10/03/18 EXCISION OF RIGHT UPPER FEMUR, OPEN APPROACH [id number] 07/25/18 INSPECTION OF LOWER INTESTINAL TRACT, ENDO [id number] 05/20/18 REPAIR ABDOMINAL WALL, OPEN APPROACH [id number] 07/25/18 Infectious Disease Assmt/Plan - Problem List Patient Problems: All Active Problems FALL WITH LACERATION TO LEFT FRONTAL (Acute) - Assessment Assessment: 1. right gluteal wound. closed after debridement. 2. COPD 3. bilateral above-knee amputation 4. colostomy. 5. Hypertension. 6. Diabetes mellitus type 2. 7. chronic pain syndrome. 8. Left thigh wound. 9. MRSA colonization - Plan Plan: Continue ceftriaxone and Vanco IV. wound care. Bactroban. Contact isolation. Nutritional Asmnt/Malnutr-PDOC - Dietary Evaluation Malnutrition Findings (Please click <Entered> for more info): Nutritional Asmnt/Malnutrition Start: 10/05/18 14: 30 Text: Status: Complete Freq: Protocol: Document 10/05/18 14:30 FADI (Rec: 10/05/18 15:14 [email or web address]) Nutritional Asmnt/Malnutrition Patient General Information Nutritional Screening High Risk Consult Diagnosis infected decubiti, leukocytosis Pertinent Medical Hx/Surgical Hx HTN, DM, asthma, COPD, bilateral BKA, depression, bilateral PNA Subjective Information Received diet consult for low christina. Pt was undergoing a medical procedure at time of visit; unable to speak with him. Nursing noted PO intake: 0-75% yesterday. Per nurse note, pt had excisional debridement for right hip decubitus ulcer. Per MD note, current internal medicine assessment includes sepsis and renal failure. BMI 24.9 adjusted by bi BKA. Current Diet Order/ Nutrition Support CCHO 45 gm, low Na, nonfat milk Pertinent Medications Vit C, Vit D3, colace, novolog , tobramycin, Nacl 0.45% Pertinent Labs 10/05: BUN 28, Cr 1.9, Ca 8.5, POC 76-102, Phos 4.2 10/04: BUN 28, Cr 2.1, Ca 9.1, POC 114-154 Nutritional Hx/Data Height 1.83 m Height (Calculated Centimeters) 182.9 Current Weight (lbs) 73.981 kg Weight (Calculated Kilograms) 74.0 Weight (Calculated Grams) 29076.9 [place] Body Weight 157 lb (adj for bilateral AKA) Body Mass Index (BMI) 22.1 Weight Status Approriate GI Symptoms GI Symptoms None Last BM none noted Difficult in: None Food Allergies Yes: pineapple, strawberry, mushroom Skin Integrity/Comment: bilateral BKA, 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 Problem Problem Altered nutrition related lab values Etiology dx of renal failure per MD note Signs/Symptoms: BUN 28, Cr 1.9, GFR 42.2 1. Problem Problem Increased nutrient needs Etiology wound healing, impaired skin integrity, sepsis Signs/Symptoms: ulcer/wound to buttocks and posterior thigh Malnutrition Alert Is there a minimum of two criteria No selected? Query Text:Check all the applicable criteria. A minimum of two criteria are recommended for diagnosis of either severe or non-severe malnutrition. Malnutrition Related to Morbid Obesity Malnutrition related to morbid obesity No Intervention/Recommendation Comments 1. Recommend to modify [facility] diet to 60 gm to meet pt's kcal needs 2. Continue with low Na diet w / nonfat milk as ordered, which will provide 100% of nutritional needs 3. Consider adding nutrition supplement if PO intake <75% 4. Monitor renal and glucose labs, skin integrity, wt, and PO intake 5. F/U as moderate risk in 3-5 days, 10/08-10/10 Expected Outcomes/Goals Expected Outcomes/Goals 1. PO intake to meet at least 75% of all meals 2. Wt stability, wounds to heal, and nutrition related labs to approach normal limits Reviewed by Rahel Minaya RD
[2018-10-08] MEDS: Sodium Chloride 0.45% 1,000 ML IV SCH (06:47)
[2018-10-08] MEDS: HYDROmorphone 2 mg/mL 1mL Vial IVP PRN ×6 (07:01→23:19)
[2018-10-08] MEDS: INSULIN ASPART SLIDING SCALE 100 UNITS/ML UNIT SUBQ SCH ×4 (07:11→21:35)
[2018-10-08] MEDS: Multivitamin w/ Minerals Tab PO SCH (08:36)
[2018-10-08] MEDS: Aspirin 81mg Chewable Tab PO SCH (08:38)
[2018-10-08] MEDS: Lactobacillus Rhamnosus GG 15 Billion CFU CAP.SPRINK PO SCH (08:38)
--- NOTE | 2018-10-08 09:07 | General Progress Note ---
Subjective - Review of Systems Service Date: 10/08/18 Events since last encounter: 10/08/18 more cooperative today redressed, dry Objective - Results Result Diagrams: 10/07/18 05:50 10/07/18 05:50 Recent Labs: Laboratory Last Values WBC 8.7 Th/cmm (4.8-10.8) 10/07/18 05:50 RBC 4.59 Mil/cmm (4.30-5.70) 10/07/18 05:50 Hgb 12.8 gm/dL (12-16) 10/07/18 05:50 Hct 38.5 % (41.0-60) L 10/07/18 05:50 MCV 83.8 fl (80-99) 10/07/18 05:50 MCH 27.9 pg (26.0-30.0) 10/07/18 05:50 MCHC Differential 33.3 pg (28.0-36.0) 10/07/18 05:50 RDW 14.8 % (11.5-20.0) 10/07/18 05:50 Plt Count 207 Th/cmm (150-400) 10/07/18 05:50 MPV 8.6 fl 10/07/18 05:50 Add Manual Diff YES 10/05/18 05:15 Neutrophils % 67.4 % (40.0-80.0) 10/07/18 05:50 Band Neutrophils % 1 % (0-10) 10/05/18 05:15 Lymphocytes % 14.5 % (20.0-50.0) L 10/07/18 05:50 Monocytes % 12.0 % (2.0-10.0) H 10/07/18 05:50 Eosinophils % 5.4 % (0.0-5.0) H 10/07/18 05:50 Basophils % 0.7 % (0.0-2.0) 10/07/18 05:50 Neutrophils (Manual) 65 % (40-80) 10/05/18 05:15 Lymphocytes 20 % (20-50) 10/05/18 05:15 Monocytes 6 % (2-10) 10/05/18 05:15 Eosinophils 8 % (0-5) H 10/05/18 05:15 Basophils 0 % (0-3) 10/05/18 05:15 Eos Smear Source URINE 10/05/18 00:00 Eos Smear Total Cells NONE SEEN (NONE SEEN) 10/05/18 00:00 PT 10.0 SECONDS (9.5-11.5) 10/05/18 05:15 INR 0.99 (0.5-1.4) 10/05/18 05:15 PTT (Actin FS) 27.2 SECONDS (26.0-38.0) 10/05/18 05:15 Sodium 138 mEq/L (136-145) 10/07/18 05:50 Potassium 4.3 mEq/L (3.5-5.1) 10/07/18 05:50 Chloride 107 mEq/L (98-107) 10/07/18 05:50 Carbon Dioxide 22.6 mEq/L (21.0-31.0) 10/07/18 05:50 Anion Gap 12.7 (7.0-16.0) 10/07/18 05:50 BUN 24 mg/dL (7-25) 10/07/18 05:50 Creatinine 1.7 mg/dL (0.7-1.3) H 10/07/18 05:50 Est GFR ( Amer) 53.9 ml/min (>90) 10/07/18 05:50 Est GFR (Non-Af Amer) 44.5 ml/min 10/07/18 05:50 BUN/Creatinine Ratio 14.1 10/07/18 05:50 Glucose 103 mg/dL (70-105) 10/07/18 05:50 POC Glucose 85 MG/DL (70 - 105) 10/08/18 06:48 Calcium 8.5 mg/dL (8.6-10.3) L 10/07/18 05:50 Phosphorus 4.2 mg/dL (2.5-5.0) 10/05/18 05:15 Magnesium 1.9 mg/dL (1.9-2.7) 10/05/18 05:15 Total Bilirubin 0.3 mg/dL (0.3-1.0) 10/06/18 08:45 AST 17 U/L (13-39) 10/06/18 08:45 ALT 11 U/L (7-52) 10/06/18 08:45 Alkaline Phosphatase 68 U/L (34-104) 10/06/18 08:45 Troponin I 0.05 ng/mL (0.01-0.05) 10/03/18 18:50 Total Protein 6.8 gm/dL (6.0-8.3) 10/06/18 08:45 Albumin 3.7 gm/dL (4.2-5.5) L 10/06/18 08:45 Globulin 3.1 gm/dL 10/06/18 08:45 Albumin/Globulin Ratio 1.2 (1.0-1.8) 10/06/18 08:45 TSH 0.44 uIU/ml (0.34-5.60) 10/03/18 18:50 Urine Source CLEAN C 10/05/18 00:00 Urine Color YELLOW 10/05/18 00:00 Urine Clarity HAZY (CLEAR) 10/05/18 00:00 Urine pH 5.5 (4.6 - 8.0) 10/05/18 00:00 Ur Specific [place] 1.015 (1.005-1.030) 10/05/18 00:00 Urine Protein NEGATIVE mg/dL (NEGATIVE) 10/05/18 00:00 Urine Glucose (UA) NEGATIVE mg/dL (NEGATIVE) 10/05/18 00:00 Urine Ketones NEGATIVE mg/dL (NEGATIVE) 10/05/18 00:00 Urine Blood NEGATIVE (NEGATIVE) 10/05/18 00:00 Urine Nitrate NEGATIVE (NEGATIVE) 10/05/18 00:00 Urine Bilirubin NEGATIVE (NEGATIVE) 10/05/18 00:00 Urine Urobilinogen 0.2 E.U./dL (0.2 - 1.0) 10/05/18 00:00 Ur Leukocyte Esterase SMALL (NEGATIVE) H 10/05/18 00:00 Urine RBC 0-2 /hpf (0-5) H 10/05/18 00:00 Urine WBC 10-25 /hpf (0-5) H 10/05/18 00:00 Ur Epithelial Cells NONE SEEN /lpf (FEW) 10/05/18 00:00 Urine Bacteria MODERATE /hpf (NONE SEEN) H 18 00:00 Ur Random Sodium 64 mmol/L 10/05/18 00:00 Urine Creatinine 69.0 mg/dl (39.0-259.0) 10/05/18 00:00 Microalb/Creat Ratio 87.3 mg/g creat (0.0-30.0) H 10/05/18 00:00 Tobramycin Peak 6.2 ug/mL (4.0-10.0) 10/06/18 11:00 Tobramycin Trough 1.1 ug/mL (0.5-2.0) 10/06/18 08:45 Random Vancomycin 23.4 ug/mL (5.0-40.0) 10/07/18 05:50 - Physical Exam Vitals and I&O: Vital Signs Temp 98 F 10/08/18 08:00 Pulse 77 10/08/18 08:37 Resp 19 10/08/18 08:00 BP 148/83 10/08/18 08:37 Pulse Ox 96 10/08/18 08:00 Intake & Output 10/07/18 10/08/18 10/08/18 18:59 06:59 18:59 Intake Total 8796.055 6782 Output Total 2020 500 Balance -99.167 2153 Weight (lbs) 74.843 kg 73.074 kg Intake: Intake, IV Amount 318.374 2404 Sodium Chloride 0.45% 1, 785.894 9508 000 ml @ 125 mls/hr IV . Q8H [facility] Rx#:[id number] Tobramycin Sulfate 120 mg 103 In Sodium Chloride 0.9% 100 ml @ 100 mls/hr IV Q24HR [facility] Rx#:[id number] Vancomycin HCl 1.5 gm In 500 Sodium Chloride 0.9% 500 ml @ 250 mls/hr IV Q24H [facility] Rx#:[id number] cefTRIAXone 1 gm In 50 Sodium Chloride 0.9% 50 ml @ 100 mls/hr IV Q24HR [facility] Rx#:[id number] Oral 1000 Output: Drainage 20 RIGHT BUTTOCK 20 Urine 2000 500 Other: # Voids 3 # Bowel Movements 1 0 Weight Source Bedscale Bedscale Active Medications: Current Medications Acetaminophen (Tylenol Extra Strength) 1,000 mg PO Q4HR PRN PRN Reason: Pain (Moderate) LEVEL 4-6 Stop: 12/02/18 22:52 Acetaminophen (Tylenol) 650 mg PO DAILY [facility] Stop: 12/03/18 08:59 Last Admin: 10/08/18 08:39 Dose: 650 mg Acetaminophen (Tylenol) 650 mg PO Q4H PRN PRN Reason: MILD PAIN OR TEMP >101 Amitriptyline HCl (Elavil) 50 mg PO HS [facility] Stop: 12/03/18 20:59 Last Admin: 10/07/18 20:21 Dose: 50 mg Ascorbic Acid (Vitamin C) 500 mg PO DAILY [facility] Stop: 12/04/18 08:59 Last Admin: 10/08/18 08:36 Dose: 500 mg Aspirin (Aspirin Chewable) 81 mg PO DAILY [facility] Stop: 12/04/18 08:59 Last Admin: 10/08/18 08:38 Dose: 81 mg Baclofen (Lioresal) 10 mg PO Q8H [facility] Stop: 12/03/18 15:59 Last Admin: 10/08/18 08:38 Dose: 10 mg [place] Oil/[place] Balsam/Trypsin (Venelex) 1 appl TP DAILY [facility] Stop: 12/04/18 16:59 Last Admin: 10/07/18 08:47 Dose: 1 appl Cholecalciferol (Vitamin D3) 1,000 iu PO DAILY [facility] Stop: 12/04/18 08:59 Last Admin: 10/08/18 08:36 Dose: 1,000 iu Docusate Sodium (Colace) 100 mg PO DAILY [facility] Stop: 12/04/18 08:59 Last Admin: 10/08/18 08:36 Dose: 100 mg Duloxetine HCl (Cymbalta) 30 mg PO DAILY [facility] Stop: 12/07/18 08:59 Last Admin: 10/08/18 08:40 Dose: 30 mg Hydromorphone HCl (Dilaudid) 2 mg IVP Q3H PRN PRN Reason: SEVERE PAIN Stop: 12/04/18 14:18 Last Admin: 10/08/18 07:01 Dose: 2 mg Ceftriaxone Sodium 1 gm/ (Sodium Chloride) 50 mls @ 100 mls/hr IV Q24HR [facility] Stop: 12/03/18 20:59 Last Infusion: 10/08/18 01:54 Dose: Infused Sodium Chloride (Nacl 0.45%) 1,000 mls @ 125 mls/hr IV .Q8H [facility] Stop: 12/02/18 22:12 Last Admin: 10/08/18 06:47 Dose: 125 mls/hr Tobramycin Sulfate 120 mg/ (Sodium Chloride) 103 mls @ 100 mls/hr IV Q24HR [facility] Stop: 12/06/18 08:59 Last Admin: 10/08/18 08:50 Dose: 100 mls/hr Vancomycin HCl 1.5 gm/ Sodium (Chloride) 500 mls @ 250 mls/hr IV Q24H [facility] Stop: 12/06/18 20:59 Last Infusion: 10/08/18 01:54 Dose: Infused Insulin Aspart (Novolog Insulin Sliding Scale) 0 units SUBQ ACHS [facility]; Protocol Stop: 12/04/18 16:29 Last Admin: 10/08/18 07:11 Dose: Not Given Lactobacillus Rhamnosus (Culturelle 15b) 1 each PO DAILY [facility] Stop: 12/07/18 08:59 Last Admin: 10/08/18 08:38 Dose: 1 each Lisinopril (Zestril) 10 mg PO DAILY [facility] Stop: 12/04/18 08:59 Last Admin: 10/08/18 08:37 Dose: 10 mg Magnesium Hydroxide (Milk Of Magnesia) 30 ml PO HS PRN PRN Reason: Constipation Stop: 12/03/18 14:39 Miscellaneous (Duloxetine Hcl [Cymbalta]) 20 mg PO DAILY [facility] Stop: 12/04/18 08:59 Miscellaneous (Tobramycin Iv Per Pharmacy) 1 ea PRN PRN PRN Reason: RX DOSING Stop: 12/03/18 16:04 Miscellaneous (Vancomycin Iv Per Pharmacy) 1 ea MC PRN [facility] Stop: 12/04/18 23:44 Miscellaneous (Probiotic Screen) 1 [facility] PRN PRN PRN Reason: PROTOCOL Stop: 12/06/18 15:29 Mupirocin (Bactroban Oint) 1 appl NS BID [facility] Stop: 10/10/18 09:01 Last Admin: 10/08/18 08:41 Dose: 1 appl Ondansetron HCl (Zofran) 4 mg IV Q6H PRN PRN Reason: Nausea / Vomiting Stop: 12/02/18 22:12 Pregabalin (Lyrica) 150 mg PO BID [facility] Stop: 12/03/18 16:59 Last Admin: 10/07/18 16:28 Dose: 150 mg General: Alert, Mild distress HEENT: Atraumatic, Mucous membr. moist/pink Neck: Supple, +2 carotid pulse wo bruit Cardiovascular: Regular rate, Normal S1, Normal S2 Lungs: Clear to auscultation Abdomen: Bowel sounds, Soft Extremities: no Edema Neurological: Sensation intact Skin: no Rash Psych/Mental Status: Mood NL - Procedures Procedures: Procedures Procedure Code Date EXCISION OF RIGHT PELVIC BONE, OPEN APPROACH [id number] 10/03/18 EXCISION OF RIGHT UPPER FEMUR, OPEN APPROACH [id number] 07/25/18 INSPECTION OF LOWER INTESTINAL TRACT, ENDO [id number] 05/20/18 REPAIR ABDOMINAL WALL, OPEN APPROACH [id number] 07/25/18 Assessment/Plan - Problem List Patient Problems: All Active Problems FALL WITH LACERATION TO LEFT FRONTAL (Acute) Nutritional Asmnt/Malnutr-PDOC - Dietary Evaluation Malnutrition Findings (Please click <Entered> for more info): Nutritional Asmnt/Malnutrition Start: 10/05/18 14: 30 Text: Status: Complete Freq: Protocol: Document 10/05/18 14:30 FADI (Rec: 10/05/18 15:14 [email or web address] [id number]) Nutritional Asmnt/Malnutrition Patient General Information Nutritional Screening High Risk Consult Diagnosis infected decubiti, leukocytosis Pertinent Medical Hx/Surgical Hx HTN, DM, asthma, COPD, bilateral BKA, depression, bilateral PNA Subjective Information Received diet consult for low christina. Pt was undergoing a medical procedure at time of visit; unable to speak with him. Nursing noted PO intake: 0-75% yesterday. Per nurse note, pt had excisional debridement for right hip decubitus ulcer. Per MD note, current internal medicine assessment includes sepsis and renal failure. BMI 24.9 adjusted by bi BKA. Current Diet Order/ Nutrition Support CCHO 45 gm, low Na, nonfat milk Pertinent Medications Vit C, Vit D3, colace, novolog , tobramycin, Nacl 0.45% Pertinent Labs 10/05: BUN 28, Cr 1.9, Ca 8.5, POC 76-102, Phos 4.2 10/04: BUN 28, Cr 2.1, Ca 9.1, POC 114-154 Nutritional Hx/Data Height 1.83 m Height (Calculated Centimeters) 182.9 Current Weight (lbs) 73.981 kg Weight (Calculated Kilograms) 74.0 Weight (Calculated Grams) 04128.9 [place] Body Weight 157 lb (adj for bilateral AKA) Body Mass Index (BMI) 22.1 Weight Status Approriate GI Symptoms GI Symptoms None Last BM none noted Difficult in: None Food Allergies Yes: pineapple, strawberry, mushroom Skin Integrity/Comment: bilateral BKA, 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 Problem Problem Altered nutrition related lab values Etiology dx of renal failure per MD note Signs/Symptoms: BUN 28, Cr 1.9, GFR 42.2 1. Problem Problem Increased nutrient needs Etiology wound healing, impaired skin integrity, sepsis Signs/Symptoms: ulcer/wound to buttocks and posterior thigh Malnutrition Alert Is there a minimum of two criteria No selected? Query Text:Check all the applicable criteria. A minimum of two criteria are recommended for diagnosis of either severe or non-severe malnutrition. Malnutrition Related to Morbid Obesity Malnutrition related to morbid obesity No Intervention/Recommendation Comments 1. Recommend to modify CCHO diet to 60 gm to meet pt's kcal needs 2. Continue with low Na diet w / nonfat milk as ordered, which will provide 100% of nutritional needs 3. Consider adding nutrition supplement if PO intake <75% 4. Monitor renal and glucose labs, skin integrity, wt, and PO intake 5. F/U as moderate risk in 3-5 days, 10/08-10/10 Expected Outcomes/Goals Expected Outcomes/Goals 1. PO intake to meet at least 75% of all meals 2. Wt stability, wounds to heal, and nutrition related labs to approach normal limits Reviewed by Rahel Minaya RD
--- NOTE | 2018-10-08 11:15 | Internal Medicine Prog Note ---
Internal Medicine Subjective - Subjective Service Date: 10/08/18 Patient is:: awake, agitated, other (inappropriate behavior) Per staff patient has:: no adverse event, tolerating meds Internal Medicine Objective - Results Result Diagrams: 10/07/18 05:50 10/07/18 05:50 Recent Labs: Laboratory Last Values WBC 8.7 Th/cmm (4.8-10.8) 10/07/18 05:50 RBC 4.59 Mil/cmm (4.30-5.70) 10/07/18 05:50 Hgb 12.8 gm/dL (12-16) 10/07/18 05:50 Hct 38.5 % (41.0-60) L 10/07/18 05:50 MCV 83.8 fl (80-99) 10/07/18 05:50 MCH 27.9 pg (26.0-30.0) 10/07/18 05:50 MCHC Differential 33.3 pg (28.0-36.0) 10/07/18 05:50 RDW 14.8 % (11.5-20.0) 10/07/18 05:50 Plt Count 207 Th/cmm (150-400) 10/07/18 05:50 MPV 8.6 fl 10/07/18 05:50 Add Manual Diff YES 10/05/18 05:15 Neutrophils % 67.4 % (40.0-80.0) 10/07/18 05:50 Band Neutrophils % 1 % (0-10) 10/05/18 05:15 Lymphocytes % 14.5 % (20.0-50.0) L 10/07/18 05:50 Monocytes % 12.0 % (2.0-10.0) H 10/07/18 05:50 Eosinophils % 5.4 % (0.0-5.0) H 10/07/18 05:50 Basophils % 0.7 % (0.0-2.0) 10/07/18 05:50 Neutrophils (Manual) 65 % (40-80) 10/05/18 05:15 Lymphocytes 20 % (20-50) 10/05/18 05:15 Monocytes 6 % (2-10) 10/05/18 05:15 Eosinophils 8 % (0-5) H 10/05/18 05:15 Basophils 0 % (0-3) 10/05/18 05:15 Eos Smear Source URINE 10/05/18 00:00 Eos Smear Total Cells NONE SEEN (NONE SEEN) 10/05/18 00:00 PT 10.0 SECONDS (9.5-11.5) 10/05/18 05:15 INR 0.99 (0.5-1.4) 10/05/18 05:15 PTT (Actin FS) 27.2 SECONDS (26.0-38.0) 10/05/18 05:15 Sodium 138 mEq/L (136-145) 10/07/18 05:50 Potassium 4.3 mEq/L (3.5-5.1) 10/07/18 05:50 Chloride 107 mEq/L (98-107) 10/07/18 05:50 Carbon Dioxide 22.6 mEq/L (21.0-31.0) 10/07/18 05:50 Anion Gap 12.7 (7.0-16.0) 10/07/18 05:50 BUN 24 mg/dL (7-25) 10/07/18 05:50 Creatinine 1.7 mg/dL (0.7-1.3) H 10/07/18 05:50 Est GFR ( Amer) 53.9 ml/min (>90) 10/07/18 05:50 Est GFR (Non-Af Amer) 44.5 ml/min 10/07/18 05:50 BUN/Creatinine Ratio 14.1 10/07/18 05:50 Glucose 103 mg/dL (70-105) 10/07/18 05:50 POC Glucose 85 MG/DL (70 - 105) 10/08/18 06:48 Calcium 8.5 mg/dL (8.6-10.3) L 10/07/18 05:50 Phosphorus 4.2 mg/dL (2.5-5.0) 10/05/18 05:15 Magnesium 1.9 mg/dL (1.9-2.7) 10/05/18 05:15 Total Bilirubin 0.3 mg/dL (0.3-1.0) 10/06/18 08:45 AST 17 U/L (13-39) 10/06/18 08:45 ALT 11 U/L (7-52) 10/06/18 08:45 Alkaline Phosphatase 68 U/L (34-104) 10/06/18 08:45 Troponin I 0.05 ng/mL (0.01-0.05) 10/03/18 18:50 Total Protein 6.8 gm/dL (6.0-8.3) 10/06/18 08:45 Albumin 3.7 gm/dL (4.2-5.5) L 10/06/18 08:45 Globulin 3.1 gm/dL 10/06/18 08:45 Albumin/Globulin Ratio 1.2 (1.0-1.8) 10/06/18 08:45 TSH 0.44 uIU/ml (0.34-5.60) 11 18:50 Urine Source CLEAN C 10/05/18 00:00 Urine Color YELLOW 10/05/18 00:00 Urine Clarity HAZY (CLEAR) 10/05/18 00:00 Urine pH 5.5 (4.6 - 8.0) 10/05/18 00:00 Ur Specific [place] 1.015 (1.005-1.030) 10/05/18 00:00 Urine Protein NEGATIVE mg/dL (NEGATIVE) 10/05/18 00:00 Urine Glucose (UA) NEGATIVE mg/dL (NEGATIVE) 10/05/18 00:00 Urine Ketones NEGATIVE mg/dL (NEGATIVE) 10/05/18 00:00 Urine Blood NEGATIVE (NEGATIVE) 10/05/18 00:00 Urine Nitrate NEGATIVE (NEGATIVE) 10/05/18 00:00 Urine Bilirubin NEGATIVE (NEGATIVE) 10/05/18 00:00 Urine Urobilinogen 0.2 E.U./dL (0.2 - 1.0) 10/05/18 00:00 Ur Leukocyte Esterase SMALL (NEGATIVE) H 10/05/18 00:00 Urine RBC 0-2 /hpf (0-5) H 10/05/18 00:00 Urine WBC 10-25 /hpf (0-5) H 10/05/18 00:00 Ur Epithelial Cells NONE SEEN /lpf (FEW) 10/05/18 00:00 Urine Bacteria MODERATE /hpf (NONE SEEN) H 10/05/18 00:00 Ur Random Sodium 64 mmol/L 10/05/18 00:00 Urine Creatinine 69.0 mg/dl (39.0-259.0) 10/05/18 00:00 Microalb/Creat Ratio 87.3 mg/g creat (0.0-30.0) H 10/05/18 00:00 Tobramycin Peak 6.2 ug/mL (4.0-10.0) 10/06/18 11:00 Tobramycin Trough 1.1 ug/mL (0.5-2.0) 10/06/18 08:45 Random Vancomycin 23.4 ug/mL (5.0-40.0) 10/07/18 05:50 - Physical Exam Vitals and I&O: Vital Signs Temp 98 F 10/08/18 08:00 Pulse 77 10/08/18 08:37 Resp 18 10/08/18 08:00 BP 148/83 10/08/18 08:37 Pulse Ox 96 10/08/18 08:00 Intake & Output 10/07/18 10/08/18 10/08/18 18:59 06:59 18:59 Intake Total 9563.530 3684 Output Total 2020 500 Balance -99.167 2153 Weight (lbs) 165 lb 161 lb 1.6 oz Intake: Intake, IV Amount 021.523 7822 Sodium Chloride 0.45% 1, 339.143 2313 000 ml @ 125 mls/hr IV . Q8H [facility] Rx#:[id number] Tobramycin Sulfate 120 mg 103 In Sodium Chloride 0.9% 100 ml @ 100 mls/hr IV Q24HR [facility] Rx#:[id number] Vancomycin HCl 1.5 gm In 500 Sodium Chloride 0.9% 500 ml @ 250 mls/hr IV Q24H [facility] Rx#:[id number] cefTRIAXone 1 gm In 50 Sodium Chloride 0.9% 50 ml @ 100 mls/hr IV Q24HR [facility] Rx#:[id number] Oral 1000 Output: Drainage 20 RIGHT BUTTOCK 20 Urine 2000 500 Other: # Voids 3 # Bowel Movements 1 0 Weight Source Bedscale Bedscale Active Medications: Current Medications Acetaminophen (Tylenol Extra Strength) 1,000 mg PO Q4HR PRN PRN Reason: Pain (Moderate) LEVEL 4-6 Stop: 12/02/18 22:52 Acetaminophen (Tylenol) 650 mg PO DAILY [facility] Stop: 12/03/18 08:59 Last Admin: 10/08/18 08:39 Dose: 650 mg Acetaminophen (Tylenol) 650 mg PO Q4H PRN PRN Reason: MILD PAIN OR TEMP >101 Amitriptyline HCl (Elavil) 50 mg PO HS [facility] Stop: 12/03/18 20:59 Last Admin: 10/07/18 20:21 Dose: 50 mg Ascorbic Acid (Vitamin C) 500 mg PO DAILY [facility] Stop: 12/04/18 08:59 Last Admin: 10/08/18 08:36 Dose: 500 mg Aspirin (Aspirin Chewable) 81 mg PO DAILY [facility] Stop: 12/04/18 08:59 Last Admin: 10/08/18 08:38 Dose: 81 mg Baclofen (Lioresal) 10 mg PO Q8H [facility] Stop: 12/03/18 15:59 Last Admin: 10/08/18 08:38 Dose: 10 mg [place] Oil/[place] Balsam/Trypsin (Venelex) 1 appl TP DAILY [facility] Stop: 12/04/18 16:59 Last Admin: 10/07/18 08:47 Dose: 1 appl Cholecalciferol (Vitamin D3) 1,000 iu PO DAILY [facility] Stop: 12/04/18 08:59 Last Admin: 10/08/18 08:36 Dose: 1,000 iu Docusate Sodium (Colace) 100 mg PO DAILY [facility] Stop: 12/04/18 08:59 Last Admin: 10/08/18 08:36 Dose: 100 mg Duloxetine HCl (Cymbalta) 30 mg PO DAILY [facility] Stop: 12/07/18 08:59 Last Admin: 10/08/18 08:40 Dose: 30 mg Hydromorphone HCl (Dilaudid) 2 mg IVP Q3H PRN PRN Reason: SEVERE PAIN Stop: 12/04/18 14:18 Last Admin: 10/08/18 10:18 Dose: 2 mg Ceftriaxone Sodium 1 gm/ (Sodium Chloride) 50 mls @ 100 mls/hr IV Q24HR [facility] Stop: 12/03/18 20:59 Last Infusion: 10/08/18 01:54 Dose: Infused Sodium Chloride (Nacl 0.45%) 1,000 mls @ 125 mls/hr IV .Q8H [facility] Stop: 12/02/18 22:12 Last Admin: 10/08/18 06:47 Dose: 125 mls/hr Tobramycin Sulfate 120 mg/ (Sodium Chloride) 103 mls @ 100 mls/hr IV Q24HR [facility] Stop: 12/06/18 08:59 Last Admin: 10/08/18 08:50 Dose: 100 mls/hr Vancomycin HCl 1.5 gm/ Sodium (Chloride) 500 mls @ 250 mls/hr IV Q24H [facility] Stop: 12/06/18 20:59 Last Infusion: 10/08/18 01:54 Dose: Infused Insulin Aspart (Novolog Insulin Sliding Scale) 0 units SUBQ ACHS [facility]; Protocol Stop: 12/04/18 16:29 Last Admin: 10/08/18 07:11 Dose: Not Given Lactobacillus Rhamnosus (Culturelle 15b) 1 each PO DAILY [facility] Stop: 12/07/18 08:59 Last Admin: 10/08/18 08:38 Dose: 1 each Lisinopril (Zestril) 10 mg PO DAILY [facility] Stop: 12/04/18 08:59 Last Admin: 10/08/18 08:37 Dose: 10 mg Magnesium Hydroxide (Milk Of Magnesia) 30 ml PO HS PRN PRN Reason: Constipation Stop: 12/03/18 14:39 Miscellaneous (Duloxetine Hcl [Cymbalta]) 20 mg PO DAILY [facility] Stop: 12/04/18 08:59 Miscellaneous (Tobramycin Iv Per Pharmacy) 1 ea PRN PRN PRN Reason: RX DOSING Stop: 12/03/18 16:04 Miscellaneous (Vancomycin Iv Per Pharmacy) 1 ea MC PRN [facility] Stop: 12/04/18 23:44 Miscellaneous (Probiotic Screen) 1 ea PRN PRN PRN Reason: PROTOCOL Stop: 12/06/18 15:29 Mupirocin (Bactroban Oint) 1 appl NS BID [facility] Stop: 10/10/18 09:01 Last Admin: 10/08/18 08:41 Dose: 1 appl Ondansetron HCl (Zofran) 4 mg IV Q6H PRN PRN Reason: Nausea / Vomiting Stop: 12/02/18 22:12 Pregabalin (Lyrica) 150 mg PO BID [facility] Stop: 12/03/18 16:59 Last Admin: 10/08/18 08:40 Dose: 150 mg General: alert, other (laceration in left eyebrow) HEENT: NC/AT Neck: Supple Lungs: CTAB Cardiovascular: RRR Abdomen: soft, non-tender Extremities: clear, edema Neurological: no change - Procedures Procedures: Procedures Procedure Code Date EXCISION OF RIGHT PELVIC BONE, OPEN APPROACH [id number] 10/03/18 EXCISION OF RIGHT UPPER FEMUR, OPEN APPROACH [id number] 07/25/18 INSPECTION OF LOWER INTESTINAL TRACT, ENDO [id number] 05/20/18 REPAIR ABDOMINAL WALL, OPEN APPROACH [id number] 07/25/18 Internal Medicine Assmt/Plan - Assessment Assessment: right gluteal wound. s/p excisional debridement COPD bilateral above-knee amputation colostomy. Hypertension. Diabetes mellitus type 2. chronic pain syndrome. Left thigh wound. - Plan Plan: ivabx as per id follow up labs continue current tx Nutritional Asmnt/Malnutr-PDOC - Dietary Evaluation Malnutrition Findings (Please click <Entered> for more info): Nutritional Asmnt/Malnutrition Start: 10/05/18 14: 30 Text: Status: Complete Freq: Protocol: Document 10/05/18 14:30 FADI (Rec: 10/05/18 15:14 FADI [email or web address]) Nutritional Asmnt/Malnutrition Patient General Information Nutritional Screening High Risk Consult Diagnosis infected decubiti, leukocytosis Pertinent Medical Hx/Surgical Hx HTN, DM, asthma, COPD, bilateral BKA, depression, bilateral PNA Subjective Information Received diet consult for james vasquez. Pt was undergoing a medical procedure at time of visit; unable to speak with him. Nursing noted PO intake: 0-75% yesterday. Per nurse note, pt had excisional debridement for right hip decubitus ulcer. Per MD note, current internal medicine assessment includes sepsis and renal failure. BMI 24.9 adjusted by bi BKA. Current Diet Order/ Nutrition Support CCHO 45 gm, low Na, nonfat milk Pertinent Medications Vit C, Vit D3, colace, novolog , tobramycin, Nacl 0.45% Pertinent Labs 10/05: BUN 28, Cr 1.9, Ca 8.5, POC 76-102, Phos 4.2 10/04: BUN 28, Cr 2.1, Ca 9.1, POC 114-154 Nutritional Hx/Data Height 6 ft Height (Calculated Centimeters) 182.9 Current Weight (lbs) 163 lb 1.6 oz Weight (Calculated Kilograms) 74.0 Weight (Calculated Grams) 99296.9 [place] Body Weight 157 lb (adj for bilateral AKA) Body Mass Index (BMI) 22.1 Weight Status Approriate GI Symptoms GI Symptoms None Last BM none noted Difficult in: None Food Allergies Yes: pineapple, strawberry, mushroom Skin Integrity/Comment: bilateral BKA, 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 Problem Problem Altered nutrition related lab values Etiology dx of renal failure per MD note Signs/Symptoms: BUN 28, Cr 1.9, GFR 42.2 1. Problem Problem Increased nutrient needs Etiology wound healing, impaired skin integrity, sepsis Signs/Symptoms: ulcer/wound to buttocks and posterior thigh Malnutrition Alert Is there a minimum of two criteria No selected? Query Text:Check all the applicable criteria. A minimum of two criteria are recommended for diagnosis of either severe or non-severe malnutrition. Malnutrition Related to Morbid Obesity Malnutrition related to morbid obesity No Intervention/Recommendation Comments 1. Recommend to modify CCHO diet to 60 gm to meet pt's kcal needs 2. Continue with low Na diet w / nonfat milk as ordered, which will provide 100% of nutritional needs 3. Consider adding nutrition supplement if PO intake <75% 4. Monitor renal and glucose labs, skin integrity, wt, and PO intake 5. F/U as moderate risk in 3-5 days, 10/08-10/10 Expected Outcomes/Goals Expected Outcomes/Goals 1. PO intake to meet at least 75% of all meals 2. Wt stability, wounds to heal, and nutrition related labs to approach normal limits Reviewed by Rahel Minaya RD
[2018-10-08] MEDS: Venelex 60gm Tube TP SCH (13:27)
--- NOTE | 2018-10-08 14:18 | Infectious Disease Prog Note ---
Infectious Disease Subjective - Review of Systems Service Date: 10/08/18 Subjective: There is no new change, no fever. Infectious Disease Objective - Results Result Diagrams: 10/07/18 05:50 10/07/18 05:50 Recent Labs: Laboratory Last Values WBC 8.7 Th/cmm (4.8-10.8) 10/07/18 05:50 RBC 4.59 Mil/cmm (4.30-5.70) 10/07/18 05:50 Hgb 12.8 gm/dL (12-16) 10/07/18 05:50 Hct 38.5 % (41.0-60) L 10/07/18 05:50 MCV 83.8 fl (80-99) 10/07/18 05:50 MCH 27.9 pg (26.0-30.0) 10/07/18 05:50 MCHC Differential 33.3 pg (28.0-36.0) 10/07/18 05:50 RDW 14.8 % (11.5-20.0) 10/07/18 05:50 Plt Count 207 Th/cmm (150-400) 10/07/18 05:50 MPV 8.6 fl 10/07/18 05:50 Add Manual Diff YES 10/05/18 05:15 Neutrophils % 67.4 % (40.0-80.0) 10/07/18 05:50 Band Neutrophils % 1 % (0-10) 10/05/18 05:15 Lymphocytes % 14.5 % (20.0-50.0) L 10/07/18 05:50 Monocytes % 12.0 % (2.0-10.0) H 10/07/18 05:50 Eosinophils % 5.4 % (0.0-5.0) H 10/07/18 05:50 Basophils % 0.7 % (0.0-2.0) 10/07/18 05:50 Neutrophils (Manual) 65 % (40-80) 10/05/18 05:15 Lymphocytes 20 % (20-50) 10/05/18 05:15 Monocytes 6 % (2-10) 10/05/18 05:15 Eosinophils 8 % (0-5) H 10/05/18 05:15 Basophils 0 % (0-3) 10/05/18 05:15 Eos Smear Source URINE 10/05/18 00:00 Eos Smear Total Cells NONE SEEN (NONE SEEN) 10/05/18 00:00 PT 10.0 SECONDS (9.5-11.5) 10/05/18 05:15 INR 0.99 (0.5-1.4) 10/05/18 05:15 PTT (Actin FS) 27.2 SECONDS (26.0-38.0) 10/05/18 05:15 Sodium 138 mEq/L (136-145) 10/07/18 05:50 Potassium 4.3 mEq/L (3.5-5.1) 10/07/18 05:50 Chloride 107 mEq/L (98-107) 10/07/18 05:50 Carbon Dioxide 22.6 mEq/L (21.0-31.0) 10/07/18 05:50 Anion Gap 12.7 (7.0-16.0) 10/07/18 05:50 BUN 24 mg/dL (7-25) 10/07/18 05:50 Creatinine 1.7 mg/dL (0.7-1.3) H 10/07/18 05:50 Est GFR ( Amer) 53.9 ml/min (>90) 10/07/18 05:50 Est GFR (Non-Af Amer) 44.5 ml/min 10/07/18 05:50 BUN/Creatinine Ratio 14.1 10/07/18 05:50 Glucose 103 mg/dL (70-105) 10/07/18 05:50 POC Glucose 115 MG/DL (70 - 105) H 10/08/18 11:54 Calcium 8.5 mg/dL (8.6-10.3) L 10/07/18 05:50 Phosphorus 4.2 mg/dL (2.5-5.0) 10/05/18 05:15 Magnesium 1.9 mg/dL (1.9-2.7) 10/05/18 05:15 Total Bilirubin 0.3 mg/dL (0.3-1.0) 10/06/18 08:45 AST 17 U/L (13-39) 10/06/18 08:45 ALT 11 U/L (7-52) 10/06/18 08:45 Alkaline Phosphatase 68 U/L (34-104) 11/13/18 08:45 Troponin I 0.05 ng/mL (0.01-0.05) 10/03/18 18:50 Total Protein 6.8 gm/dL (6.0-8.3) 10/06/18 08:45 Albumin 3.7 gm/dL (4.2-5.5) L 10/06/18 08:45 Globulin 3.1 gm/dL 10/06/18 08:45 Albumin/Globulin Ratio 1.2 (1.0-1.8) 10/06/18 08:45 TSH 0.44 uIU/ml (0.34-5.60) 10/03/18 18:50 Urine Source CLEAN C 10/05/18 00:00 Urine Color YELLOW 10/05/18 00:00 Urine Clarity HAZY (CLEAR) 10/05/18 00:00 Urine pH 5.5 (4.6 - 8.0) 10/05/18 00:00 Ur Specific North 1.015 (1.005-1.030) 10/05/18 00:00 Urine Protein NEGATIVE mg/dL (NEGATIVE) 10/05/18 00:00 Urine Glucose (UA) NEGATIVE mg/dL (NEGATIVE) 10/05/18 00:00 Urine Ketones NEGATIVE mg/dL (NEGATIVE) 10/05/18 00:00 Urine Blood NEGATIVE (NEGATIVE) 10/05/18 00:00 Urine Nitrate NEGATIVE (NEGATIVE) 10/05/18 00:00 Urine Bilirubin NEGATIVE (NEGATIVE) 10/05/18 00:00 Urine Urobilinogen 0.2 E.U./dL (0.2 - 1.0) 10/05/18 00:00 Ur Leukocyte Esterase SMALL (NEGATIVE) H 10/05/18 00:00 Urine RBC 0-2 /hpf (0-5) H 10/05/18 00:00 Urine WBC 10-25 /hpf (0-5) H 10/05/18 00:00 Ur Epithelial Cells NONE SEEN /lpf (FEW) 10/05/18 00:00 Urine Bacteria MODERATE /hpf (NONE SEEN) H 10/05/18 00:00 Ur Random Sodium 64 mmol/L 10/05/18 00:00 Urine Creatinine 69.0 mg/dl (39.0-259.0) 10/05/18 00:00 Microalb/Creat Ratio 87.3 mg/g creat (0.0-30.0) H 10/05/18 00:00 Tobramycin Peak 6.2 ug/mL (4.0-10.0) 10/06/18 11:00 Tobramycin Trough 1.1 ug/mL (0.5-2.0) 10/06/18 08:45 Random Vancomycin 23.4 ug/mL (5.0-40.0) 10/07/18 05:50 - Physical Exam Vitals and I&O: Vital Signs Temp 98.2 F 10/08/18 12:00 Pulse 70 10/08/18 12:00 Resp 18 10/08/18 12:00 BP 133/86 10/08/18 12:00 Pulse Ox 97 10/08/18 12:00 Intake & Output 10/07/18 10/08/18 10/08/18 18:59 06:59 18:59 Intake Total 0276.647 2023 Output Total 2020 500 Balance -99.167 2153 Weight (lbs) 74.843 kg 73.074 kg Intake: Intake, IV Amount 316.860 5020 Sodium Chloride 0.45% 1, 037.227 1172 000 ml @ 125 mls/hr IV . Q8H [facility] Rx#:[id number] Tobramycin Sulfate 120 mg 103 In Sodium Chloride 0.9% 100 ml @ 100 mls/hr IV Q24HR [facility] Rx#:[id number] Vancomycin HCl 1.5 gm In 500 Sodium Chloride 0.9% 500 ml @ 250 mls/hr IV Q24H [facility] Rx#:[id number] cefTRIAXone 1 gm In 50 Sodium Chloride 0.9% 50 ml @ 100 mls/hr IV Q24HR [facility] Rx#:[id number] Oral 1000 Output: Drainage 20 RIGHT BUTTOCK 20 Urine 2000 500 Other: # Voids 3 # Bowel Movements 1 0 Weight Source Bedscale Bedscale Active Medications: Current Medications Acetaminophen (Tylenol Extra Strength) 1,000 mg PO Q4HR PRN PRN Reason: Pain (Moderate) LEVEL 4-6 Stop: 12/02/18 22:52 Acetaminophen (Tylenol) 650 mg PO DAILY [facility] Stop: 12/03/18 08:59 Last Admin: 10/08/18 08:39 Dose: 650 mg Acetaminophen (Tylenol) 650 mg PO Q4H PRN PRN Reason: MILD PAIN OR TEMP >101 Amitriptyline HCl (Elavil) 50 mg PO HS [facility] Stop: 12/03/18 20:59 Last Admin: 10/07/18 20:21 Dose: 50 mg Ascorbic Acid (Vitamin C) 500 mg PO DAILY [facility] Stop: 12/04/18 08:59 Last Admin: 10/08/18 08:36 Dose: 500 mg Aspirin (Aspirin Chewable) 81 mg PO DAILY [facility] Stop: 12/04/18 08:59 Last Admin: 10/08/18 08:38 Dose: 81 mg Baclofen (Lioresal) 10 mg PO Q8H [facility] Stop: 12/03/18 15:59 Last Admin: 10/08/18 08:38 Dose: 10 mg [place] Oil/Salvadorean Balsam/Trypsin (Venelex) 1 appl TP DAILY [facility] Stop: 12/04/18 16:59 Last Admin: 10/08/18 13:27 Dose: 1 appl Cholecalciferol (Vitamin D3) 1,000 iu PO DAILY [facility] Stop: 12/04/18 08:59 Last Admin: 10/08/18 08:36 Dose: 1,000 iu Docusate Sodium (Colace) 100 mg PO DAILY [facility] Stop: 12/04/18 08:59 Last Admin: 10/08/18 08:36 Dose: 100 mg Duloxetine HCl (Cymbalta) 30 mg PO DAILY [facility] Stop: 12/07/18 08:59 Last Admin: 10/08/18 08:40 Dose: 30 mg Hydromorphone HCl (Dilaudid) 2 mg IVP Q3H PRN PRN Reason: SEVERE PAIN Stop: 12/04/18 14:18 Last Admin: 10/08/18 13:26 Dose: 2 mg Ceftriaxone Sodium 1 gm/ (Sodium Chloride) 50 mls @ 100 mls/hr IV Q24HR [facility] Stop: 12/03/18 20:59 Last Infusion: 10/08/18 01:54 Dose: Infused Sodium Chloride (Nacl 0.45%) 1,000 mls @ 125 mls/hr IV .Q8H [facility] Stop: 12/02/18 22:12 Last Admin: 10/08/18 06:47 Dose: 125 mls/hr Tobramycin Sulfate 120 mg/ (Sodium Chloride) 103 mls @ 100 mls/hr IV Q24HR [facility] Stop: 12/06/18 08:59 Last Admin: 10/08/18 08:50 Dose: 100 mls/hr Vancomycin HCl 1.5 gm/ Sodium (Chloride) 500 mls @ 250 mls/hr IV Q24H [facility] Stop: 12/06/18 20:59 Last Infusion: 10/08/18 01:54 Dose: Infused Insulin Aspart (Novolog Insulin Sliding Scale) 0 units SUBQ ACHS [facility]; Protocol Stop: 12/04/18 16:29 Last Admin: 10/08/18 11:57 Dose: Not Given Lactobacillus Rhamnosus (Culturelle 15b) 1 each PO DAILY [facility] Stop: 12/07/18 08:59 Last Admin: 10/08/18 08:38 Dose: 1 each Lisinopril (Zestril) 10 mg PO DAILY [facility] Stop: 12/04/18 08:59 Last Admin: 10/08/18 08:37 Dose: 10 mg Magnesium Hydroxide (Milk Of Magnesia) 30 ml PO HS PRN PRN Reason: Constipation Stop: 12/03/18 14:39 Miscellaneous (Duloxetine Hcl [Cymbalta]) 20 mg PO DAILY [facility] Stop: 12/04/18 08:59 Miscellaneous (Tobramycin Iv Per Pharmacy) 1 ea PRN PRN PRN Reason: RX DOSING Stop: 12/03/18 16:04 Miscellaneous (Vancomycin Iv Per Pharmacy) 1 ea MC PRN [facility] Stop: 12/04/18 23:44 Miscellaneous (Probiotic Screen) 1 ea PRN PRN PRN Reason: PROTOCOL Stop: 12/06/18 15:29 Mupirocin (Bactroban Oint) 1 appl NS BID [facility] Stop: 10/10/18 09:01 Last Admin: 10/08/18 08:41 Dose: 1 appl Ondansetron HCl (Zofran) 4 mg IV Q6H PRN PRN Reason: Nausea / Vomiting Stop: 12/02/18 22:12 Pregabalin (Lyrica) 150 mg PO BID [facility] Stop: 12/03/18 16:59 Last Admin: 10/08/18 08:40 Dose: 150 mg General: no acute distress, well developed, well nourished HEENT: atraumatic, normocephalic, PERRLA, EOMI Neck: supple, no thyromegaly Cardiovascular: S1S2, regular Lungs: clear to auscultation bilaterally, clear to percussion - Procedures Procedures: Procedures Procedure Code Date EXCISION OF RIGHT PELVIC BONE, OPEN APPROACH [id number] 10/03/18 EXCISION OF RIGHT UPPER FEMUR, OPEN APPROACH [id number] 07/25/18 INSPECTION OF LOWER INTESTINAL TRACT, ENDO [id number] 05/20/18 REPAIR ABDOMINAL WALL, OPEN APPROACH [id number] 07/25/18 Infectious Disease Assmt/Plan - Problem List Patient Problems: All Active Problems FALL WITH LACERATION TO LEFT FRONTAL (Acute) - Assessment Assessment: 1. right gluteal wound. closed after debridement. 2. COPD 3. bilateral above-knee amputation 4. colostomy. 5. Hypertension. 6. Diabetes mellitus type 2. 7. chronic pain syndrome. 8. Left thigh wound. 9. MRSA colonization - Plan Plan: Continue ceftriaxone and Vanco IV. wound care. Bactroban. Contact isolation. Nutritional Asmnt/Malnutr-PDOC - Dietary Evaluation Malnutrition Findings (Please click <Entered> for more info): Nutritional Asmnt/Malnutrition Start: 10/05/18 14: 30 Text: Status: Complete Freq: Protocol: Document 10/05/18 14:30 FADI (Rec: 10/05/18 15:14 [email or web address]) Nutritional Asmnt/Malnutrition Patient General Information Nutritional Screening High Risk Consult Diagnosis infected decubiti, leukocytosis Pertinent Medical Hx/Surgical Hx HTN, DM, asthma, COPD, bilateral BKA, depression, bilateral PNA Subjective Information Received diet consult for low christina. Pt was undergoing a medical procedure at time of visit; unable to speak with him. Nursing noted PO intake: 0-75% yesterday. Per nurse note, pt had excisional debridement for right hip decubitus ulcer. Per MD note, current internal medicine assessment includes sepsis and renal failure. BMI 24.9 adjusted by bi BKA. Current Diet Order/ Nutrition Support CCHO 45 gm, low Na, nonfat milk Pertinent Medications Vit C, Vit D3, colace, novolog , tobramycin, Nacl 0.45% Pertinent Labs 10/05: BUN 28, Cr 1.9, Ca 8.5, POC 76-102, Phos 4.2 10/04: BUN 28, Cr 2.1, Ca 9.1, POC 114-154 Nutritional Hx/Data Height 1.83 m Height (Calculated Centimeters) 182.9 Current Weight (lbs) 73.981 kg Weight (Calculated Kilograms) 74.0 Weight (Calculated Grams) 75575.9 Left Hand Body Weight 157 lb (adj for bilateral AKA) Body Mass Index (BMI) 22.1 Weight Status Approriate GI Symptoms GI Symptoms None Last BM none noted Difficult in: None Food Allergies Yes: pineapple, strawberry, mushroom Skin Integrity/Comment: bilateral BKA, 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 Problem Problem Altered nutrition related lab values Etiology dx of renal failure per MD note Signs/Symptoms: BUN 28, Cr 1.9, GFR 42.2 1. Problem Problem Increased nutrient needs Etiology wound healing, impaired skin integrity, sepsis Signs/Symptoms: ulcer/wound to buttocks and posterior thigh Malnutrition Alert Is there a minimum of two criteria No selected? Query Text:Check all the applicable criteria. A minimum of two criteria are recommended for diagnosis of either severe or non-severe malnutrition. Malnutrition Related to Morbid Obesity Malnutrition related to morbid obesity No Intervention/Recommendation Comments 1. Recommend to modify [facility] diet to 60 gm to meet pt's kcal needs 2. Continue with low Na diet w / nonfat milk as ordered, which will provide 100% of nutritional needs 3. Consider adding nutrition supplement if PO intake <75% 4. Monitor renal and glucose labs, skin integrity, wt, and PO intake 5. F/U as moderate risk in 3-5 days, 10/08-10/10 Expected Outcomes/Goals Expected Outcomes/Goals 1. PO intake to meet at least 75% of all meals 2. Wt stability, wounds to heal, and nutrition related labs to approach normal limits Reviewed by Rahel Minaya RD
--- NOTE | 2018-10-08 15:41 | Infectious Disease Prog Note ---
Infectious Disease Subjective - Review of Systems Service Date: 10/15/18 Subjective: There is no new change, no fever. Infectious Disease Objective - Results Result Diagrams: 10/07/18 05:50 10/07/18 05:50 Recent Labs: Laboratory Last Values WBC 8.7 Th/cmm (4.8-10.8) 10/07/18 05:50 RBC 4.59 Mil/cmm (4.30-5.70) 10/07/18 05:50 Hgb 12.8 gm/dL (12-16) 10/07/18 05:50 Hct 38.5 % (41.0-60) L 10/07/18 05:50 MCV 83.8 fl (80-99) 10/07/18 05:50 MCH 27.9 pg (26.0-30.0) 10/07/18 05:50 MCHC Differential 33.3 pg (28.0-36.0) 10/07/18 05:50 RDW 14.8 % (11.5-20.0) 10/07/18 05:50 Plt Count 207 Th/cmm (150-400) 10/07/18 05:50 MPV 8.6 fl 10/07/18 05:50 Add Manual Diff YES 10/05/18 05:15 Neutrophils % 67.4 % (40.0-80.0) 10/07/18 05:50 Band Neutrophils % 1 % (0-10) 10/05/18 05:15 Lymphocytes % 14.5 % (20.0-50.0) L 10/07/18 05:50 Monocytes % 12.0 % (2.0-10.0) H 10/07/18 05:50 Eosinophils % 5.4 % (0.0-5.0) H 10/07/18 05:50 Basophils % 0.7 % (0.0-2.0) 10/07/18 05:50 Neutrophils (Manual) 65 % (40-80) 10/05/18 05:15 Lymphocytes 20 % (20-50) 10/05/18 05:15 Monocytes 6 % (2-10) 10/05/18 05:15 Eosinophils 8 % (0-5) H 10/05/18 05:15 Basophils 0 % (0-3) 10/05/18 05:15 Eos Smear Source URINE 10/05/18 00:00 Eos Smear Total Cells NONE SEEN (NONE SEEN) 10/05/18 00:00 PT 10.0 SECONDS (9.5-11.5) 10/05/18 05:15 INR 0.99 (0.5-1.4) 10/05/18 05:15 PTT (Actin FS) 27.2 SECONDS (26.0-38.0) 10/05/18 05:15 Sodium 138 mEq/L (136-145) 10/07/18 05:50 Potassium 4.3 mEq/L (3.5-5.1) 10/07/18 05:50 Chloride 107 mEq/L (98-107) 10/07/18 05:50 Carbon Dioxide 22.6 mEq/L (21.0-31.0) 10/07/18 05:50 Anion Gap 12.7 (7.0-16.0) 10/07/18 05:50 BUN 24 mg/dL (7-25) 10/07/18 05:50 Creatinine 1.7 mg/dL (0.7-1.3) H 10/07/18 05:50 Est GFR ( Amer) 53.9 ml/min (>90) 10/07/18 05:50 Est GFR (Non-Af Amer) 44.5 ml/min 10/07/18 05:50 BUN/Creatinine Ratio 14.1 10/07/18 05:50 Glucose 103 mg/dL (70-105) 10/07/18 05:50 POC Glucose 115 MG/DL (70 - 105) H 10/08/18 11:54 Calcium 8.5 mg/dL (8.6-10.3) L 10/07/18 05:50 Phosphorus 4.2 mg/dL (2.5-5.0) 10/05/18 05:15 Magnesium 1.9 mg/dL (1.9-2.7) 10/05/18 05:15 Total Bilirubin 0.3 mg/dL (0.3-1.0) 10/06/18 08:45 AST 17 U/L (13-39) 10/06/18 08:45 ALT 11 U/L (7-52) 10/06/18 08:45 Alkaline Phosphatase 68 U/L (34-104) 11/13/18 08:45 Troponin I 0.05 ng/mL (0.01-0.05) 10/03/18 18:50 Total Protein 6.8 gm/dL (6.0-8.3) 10/06/18 08:45 Albumin 3.7 gm/dL (4.2-5.5) L 10/06/18 08:45 Globulin 3.1 gm/dL 10/06/18 08:45 Albumin/Globulin Ratio 1.2 (1.0-1.8) 10/06/18 08:45 TSH 0.44 uIU/ml (0.34-5.60) 10/03/18 18:50 Urine Source CLEAN C 10/05/18 00:00 Urine Color YELLOW 10/05/18 00:00 Urine Clarity HAZY (CLEAR) 10/05/18 00:00 Urine pH 5.5 (4.6 - 8.0) 10/05/18 00:00 Ur Specific [place] 1.015 (1.005-1.030) 10/05/18 00:00 Urine Protein NEGATIVE mg/dL (NEGATIVE) 10/05/18 00:00 Urine Glucose (UA) NEGATIVE mg/dL (NEGATIVE) 10/05/18 00:00 Urine Ketones NEGATIVE mg/dL (NEGATIVE) 10/05/18 00:00 Urine Blood NEGATIVE (NEGATIVE) 10/05/18 00:00 Urine Nitrate NEGATIVE (NEGATIVE) 10/05/18 00:00 Urine Bilirubin NEGATIVE (NEGATIVE) 10/05/18 00:00 Urine Urobilinogen 0.2 E.U./dL (0.2 - 1.0) 10/05/18 00:00 Ur Leukocyte Esterase SMALL (NEGATIVE) H 10/05/18 00:00 Urine RBC 0-2 /hpf (0-5) H 10/05/18 00:00 Urine WBC 10-25 /hpf (0-5) H 10/05/18 00:00 Ur Epithelial Cells NONE SEEN /lpf (FEW) 10/05/18 00:00 Urine Bacteria MODERATE /hpf (NONE SEEN) H 10/05/18 00:00 Ur Random Sodium 64 mmol/L 10/05/18 00:00 Urine Creatinine 69.0 mg/dl (39.0-259.0) 10/05/18 00:00 Microalb/Creat Ratio 87.3 mg/g creat (0.0-30.0) H 10/05/18 00:00 Tobramycin Peak 6.2 ug/mL (4.0-10.0) 10/06/18 11:00 Tobramycin Trough 1.1 ug/mL (0.5-2.0) 10/06/18 08:45 Random Vancomycin 23.4 ug/mL (5.0-40.0) 10/07/18 05:50 - Physical Exam Vitals and I&O: Vital Signs Temp 98.2 F 10/08/18 12:00 Pulse 70 10/08/18 12:00 Resp 18 10/08/18 12:00 BP 133/86 10/08/18 12:00 Pulse Ox 97 10/08/18 12:00 Intake & Output 10/07/18 10/08/18 10/08/18 18:59 06:59 18:59 Intake Total 9029.282 8725 Output Total 2020 500 Balance -99.167 2153 Weight (lbs) 74.843 kg 73.074 kg Intake: Intake, IV Amount 012.927 1853 Sodium Chloride 0.45% 1, 058.539 8282 000 ml @ 125 mls/hr IV . Q8H [facility] Rx#:[id number] Tobramycin Sulfate 120 mg 103 In Sodium Chloride 0.9% 100 ml @ 100 mls/hr IV Q24HR [facility] Rx#:[id number] Vancomycin HCl 1.5 gm In 500 Sodium Chloride 0.9% 500 ml @ 250 mls/hr IV Q24H [facility] Rx#:[id number] cefTRIAXone 1 gm In 50 Sodium Chloride 0.9% 50 ml @ 100 mls/hr IV Q24HR [facility] Rx#:[id number] Oral 1000 Output: Drainage 20 RIGHT BUTTOCK 20 Urine 2000 500 Other: # Voids 3 # Bowel Movements 1 0 Weight Source Bedscale Bedscale Active Medications: Current Medications Acetaminophen (Tylenol Extra Strength) 1,000 mg PO Q4HR PRN PRN Reason: Pain (Moderate) LEVEL 4-6 Stop: 12/02/18 22:52 Acetaminophen (Tylenol) 650 mg PO DAILY [facility] Stop: 12/03/18 08:59 Last Admin: 10/08/18 08:39 Dose: 650 mg Acetaminophen (Tylenol) 650 mg PO Q4H PRN PRN Reason: MILD PAIN OR TEMP >101 Amitriptyline HCl (Elavil) 50 mg PO HS [facility] Stop: 12/03/18 20:59 Last Admin: 10/07/18 20:21 Dose: 50 mg Ascorbic Acid (Vitamin C) 500 mg PO DAILY [facility] Stop: 12/04/18 08:59 Last Admin: 10/08/18 08:36 Dose: 500 mg Aspirin (Aspirin Chewable) 81 mg PO DAILY [facility] Stop: 12/04/18 08:59 Last Admin: 10/08/18 08:38 Dose: 81 mg Baclofen (Lioresal) 10 mg PO Q8H [facility] Stop: 12/03/18 15:59 Last Admin: 10/08/18 08:38 Dose: 10 mg [place] Oil/[place] Balsam/Trypsin (Venelex) 1 appl TP DAILY [facility] Stop: 12/04/18 16:59 Last Admin: 10/08/18 13:27 Dose: 1 appl Cholecalciferol (Vitamin D3) 1,000 iu PO DAILY [facility] Stop: 12/04/18 08:59 Last Admin: 10/08/18 08:36 Dose: 1,000 iu Docusate Sodium (Colace) 100 mg PO DAILY [facility] Stop: 12/04/18 08:59 Last Admin: 10/08/18 08:36 Dose: 100 mg Duloxetine HCl (Cymbalta) 30 mg PO DAILY [facility] Stop: 12/07/18 08:59 Last Admin: 10/08/18 08:40 Dose: 30 mg Hydromorphone HCl (Dilaudid) 2 mg IVP Q3H PRN PRN Reason: SEVERE PAIN Stop: 12/04/18 14:18 Last Admin: 10/08/18 13:26 Dose: 2 mg Sodium Chloride (Nacl 0.45%) 1,000 mls @ 125 mls/hr IV .Q8H [facility] Stop: 12/02/18 22:12 Last Admin: 10/08/18 06:47 Dose: 125 mls/hr Tobramycin Sulfate 120 mg/ (Sodium Chloride) 103 mls @ 100 mls/hr IV Q24HR [facility] Stop: 12/06/18 08:59 Last Admin: 10/08/18 08:50 Dose: 100 mls/hr Vancomycin HCl 1.5 gm/ Sodium (Chloride) 500 mls @ 250 mls/hr IV Q24H [facility] Stop: 12/06/18 20:59 Last Infusion: 10/08/18 01:54 Dose: Infused Cefepime HCl 2 gm/ Dextrose 100 mls @ 100 mls/hr IV Q12HR [facility] Stop: 12/07/18 20:59 Insulin Aspart (Novolog Insulin Sliding Scale) 0 units SUBQ ACHS [facility]; Protocol Stop: 12/04/18 16:29 Last Admin: 10/08/18 11:57 Dose: Not Given Lactobacillus Rhamnosus (Culturelle 15b) 1 each PO DAILY [facility] Stop: 12/07/18 08:59 Last Admin: 10/08/18 08:38 Dose: 1 each Lisinopril (Zestril) 10 mg PO DAILY [facility] Stop: 12/04/18 08:59 Last Admin: 10/08/18 08:37 Dose: 10 mg Magnesium Hydroxide (Milk Of Magnesia) 30 ml PO HS PRN PRN Reason: Constipation Stop: 12/03/18 14:39 Miscellaneous (Duloxetine Hcl [Cymbalta]) 20 mg PO DAILY [facility] Stop: 12/04/18 08:59 Miscellaneous (Tobramycin Iv Per Pharmacy) 1 ea PRN PRN PRN Reason: RX DOSING Stop: 12/03/18 16:04 Miscellaneous (Vancomycin Iv Per Pharmacy) 1 ea PRN [facility] Stop: 12/04/18 23:44 Miscellaneous (Probiotic Screen) 1 ea PRN PRN PRN Reason: PROTOCOL Stop: 12/06/18 15:29 Mupirocin (Bactroban Oint) 1 appl NS BID [facility] Stop: 10/10/18 09:01 Last Admin: 10/08/18 08:41 Dose: 1 appl Ondansetron HCl (Zofran) 4 mg IV Q6H PRN PRN Reason: Nausea / Vomiting Stop: 12/02/18 22:12 Pregabalin (Lyrica) 150 mg PO BID [facility] Stop: 12/03/18 16:59 Last Admin: 10/08/18 08:40 Dose: 150 mg General: no acute distress, well developed, well nourished HEENT: atraumatic, normocephalic, PERRLA, EOMI, moist mucous membrane Neck: supple, no thyromegaly Cardiovascular: S1S2, regular Lungs: clear to auscultation bilaterally, clear to percussion Abdomen: soft, no tender, no distended Extremities: other (bka b/l), no cyanosis, no clubbing, no edema Neurological: awake, alert, oriented Skin: intact - Procedures Procedures: Procedures Procedure Code Date EXCISION OF RIGHT PELVIC BONE, OPEN APPROACH [id number] 10/03/18 EXCISION OF RIGHT UPPER FEMUR, OPEN APPROACH [id number] 07/25/18 INSPECTION OF LOWER INTESTINAL TRACT, ENDO [id number] 05/20/18 REPAIR ABDOMINAL WALL, OPEN APPROACH [id number] 07/25/18 Infectious Disease Assmt/Plan - Problem List Patient Problems: All Active Problems FALL WITH LACERATION TO LEFT FRONTAL (Acute) - Assessment Assessment: 1. right gluteal wound. closed after debridement. 2. COPD 3. bilateral above-knee amputation 4. colostomy. 5. Hypertension. 6. Diabetes mellitus type 2. 7. chronic pain syndrome. 8. Left thigh wound. 9. MRSA colonization - Plan Plan: Change antibiotics to vancO and cefepime. wound care. Bactroban. Contact isolation. Nutritional Asmnt/Malnutr-PDOC - Dietary Evaluation Malnutrition Findings (Please click <Entered> for more info): Nutritional Asmnt/Malnutrition Start: 10/05/18 14: 30 Text: Status: Complete Freq: Protocol: Document 10/05/18 14:30 FADI (Rec: 10/05/18 15:14 [email or web address]) Nutritional Asmnt/Malnutrition Patient General Information Nutritional Screening High Risk Consult Diagnosis infected decubiti, leukocytosis Pertinent Medical Hx/Surgical Hx HTN, DM, asthma, COPD, bilateral BKA, depression, bilateral PNA Subjective Information Received diet consult for low christina. Pt was undergoing a medical procedure at time of visit; unable to speak with him. Nursing noted PO intake: 0-75% yesterday. Per nurse note, pt had excisional debridement for right hip decubitus ulcer. Per MD note, current internal medicine assessment includes sepsis and renal failure. BMI 24.9 adjusted by bi BKA. Current Diet Order/ Nutrition Support CCHO 45 gm, low Na, nonfat milk Pertinent Medications Vit C, Vit D3, colace, novolog , tobramycin, Nacl 0.45% Pertinent Labs 10/05: BUN 28, Cr 1.9, Ca 8.5, POC 76-102, Phos 4.2 10/04: BUN 28, Cr 2.1, Ca 9.1, POC 114-154 Nutritional Hx/Data Height 1.83 m Height (Calculated Centimeters) 182.9 Current Weight (lbs) 73.981 kg Weight (Calculated Kilograms) 74.0 Weight (Calculated Grams) 85472.9 [place] Body Weight 157 lb (adj for bilateral AKA) Body Mass Index (BMI) 22.1 Weight Status Approriate GI Symptoms GI Symptoms None Last BM none noted Difficult in: None Food Allergies Yes: pineapple, strawberry, mushroom Skin Integrity/Comment: bilateral BKA, 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 Problem Problem Altered nutrition related lab values Etiology dx of renal failure per MD note Signs/Symptoms: BUN 28, Cr 1.9, GFR 42.2 1. Problem Problem Increased nutrient needs Etiology wound healing, impaired skin integrity, sepsis Signs/Symptoms: ulcer/wound to buttocks and posterior thigh Malnutrition Alert Is there a minimum of two criteria No selected? Query Text:Check all the applicable criteria. A minimum of two criteria are recommended for diagnosis of either severe or non-severe malnutrition. Malnutrition Related to Morbid Obesity Malnutrition related to morbid obesity No Intervention/Recommendation Comments 1. Recommend to modify [facility] diet to 60 gm to meet pt's kcal needs 2. Continue with low Na diet w / nonfat milk as ordered, which will provide 100% of nutritional needs 3. Consider adding nutrition supplement if PO intake <75% 4. Monitor renal and glucose labs, skin integrity, wt, and PO intake 5. F/U as moderate risk in 3-5 days, 10/08-10/10 Expected Outcomes/Goals Expected Outcomes/Goals 1. PO intake to meet at least 75% of all meals 2. Wt stability, wounds to heal, and nutrition related labs to approach normal limits Reviewed by Rahel Minaya RD
--- NOTE | 2018-10-08 19:00 | General Progress Note ---
Subjective - Review of Systems Service Date: 10/08/18 Subjective: awake, less agitated Objective - Results Result Diagrams: 10/07/18 05:50 10/07/18 05:50 Recent Labs: Laboratory Last Values WBC 8.7 Th/cmm (4.8-10.8) 10/07/18 05:50 RBC 4.59 Mil/cmm (4.30-5.70) 10/07/18 05:50 Hgb 12.8 gm/dL (12-16) 10/07/18 05:50 Hct 38.5 % (41.0-60) L 10/07/18 05:50 MCV 83.8 fl (80-99) 10/07/18 05:50 MCH 27.9 pg (26.0-30.0) 10/07/18 05:50 MCHC Differential 33.3 pg (28.0-36.0) 10/07/18 05:50 RDW 14.8 % (11.5-20.0) 10/07/18 05:50 Plt Count 207 Th/cmm (150-400) 10/07/18 05:50 MPV 8.6 fl 10/07/18 05:50 Add Manual Diff YES 10/05/18 05:15 Neutrophils % 67.4 % (40.0-80.0) 10/07/18 05:50 Band Neutrophils % 1 % (0-10) 10/05/18 05:15 Lymphocytes % 14.5 % (20.0-50.0) L 10/07/18 05:50 Monocytes % 12.0 % (2.0-10.0) H 10/07/18 05:50 Eosinophils % 5.4 % (0.0-5.0) H 10/07/18 05:50 Basophils % 0.7 % (0.0-2.0) 10/07/18 05:50 Neutrophils (Manual) 65 % (40-80) 10/05/18 05:15 Lymphocytes 20 % (20-50) 10/05/18 05:15 Monocytes 6 % (2-10) 10/05/18 05:15 Eosinophils 8 % (0-5) H 10/05/18 05:15 Basophils 0 % (0-3) 10/05/18 05:15 Eos Smear Source URINE 10/05/18 00:00 Eos Smear Total Cells NONE SEEN (NONE SEEN) 10/05/18 00:00 PT 10.0 SECONDS (9.5-11.5) 10/05/18 05:15 INR 0.99 (0.5-1.4) 10/05/18 05:15 PTT (Actin FS) 27.2 SECONDS (26.0-38.0) 10/05/18 05:15 Sodium 138 mEq/L (136-145) 10/07/18 05:50 Potassium 4.3 mEq/L (3.5-5.1) 10/07/18 05:50 Chloride 107 mEq/L (98-107) 10/07/18 05:50 Carbon Dioxide 22.6 mEq/L (21.0-31.0) 10/07/18 05:50 Anion Gap 12.7 (7.0-16.0) 10/07/18 05:50 BUN 24 mg/dL (7-25) 10/07/18 05:50 Creatinine 1.7 mg/dL (0.7-1.3) H 10/07/18 05:50 Est GFR ( Amer) 53.9 ml/min (>90) 10/07/18 05:50 Est GFR (Non-Af Amer) 44.5 ml/min 10/07/18 05:50 BUN/Creatinine Ratio 14.1 10/07/18 05:50 Glucose 103 mg/dL (70-105) 10/07/18 05:50 POC Glucose 109 MG/DL (70 - 105) H 10/08/18 17:07 Calcium 8.5 mg/dL (8.6-10.3) L 10/07/18 05:50 Phosphorus 4.2 mg/dL (2.5-5.0) 10/05/18 05:15 Magnesium 1.9 mg/dL (1.9-2.7) 10/05/18 05:15 Total Bilirubin 0.3 mg/dL (0.3-1.0) 10/06/18 08:45 AST 17 U/L (13-39) 10/06/18 08:45 ALT 11 U/L (7-52) 10/06/18 08:45 Alkaline Phosphatase 68 U/L (34-104) 10/06/18 08:45 Troponin I 0.05 ng/mL (0.01-0.05) 10/03/18 18:50 Total Protein 6.8 gm/dL (6.0-8.3) 10/06/18 08:45 Albumin 3.7 gm/dL (4.2-5.5) L 10/06/18 08:45 Globulin 3.1 gm/dL 10/06/18 08:45 Albumin/Globulin Ratio 1.2 (1.0-1.8) 10/06/18 08:45 TSH 0.44 uIU/ml (0.34-5.60) 11 18:50 Urine Source CLEAN C 10/05/18 00:00 Urine Color YELLOW 10/05/18 00:00 Urine Clarity HAZY (CLEAR) 10/05/18 00:00 Urine pH 5.5 (4.6 - 8.0) 10/05/18 00:00 Ur Specific [place] 1.015 (1.005-1.030) 10/05/18 00:00 Urine Protein NEGATIVE mg/dL (NEGATIVE) 10/05/18 00:00 Urine Glucose (UA) NEGATIVE mg/dL (NEGATIVE) 10/05/18 00:00 Urine Ketones NEGATIVE mg/dL (NEGATIVE) 10/05/18 00:00 Urine Blood NEGATIVE (NEGATIVE) 10/05/18 00:00 Urine Nitrate NEGATIVE (NEGATIVE) 10/05/18 00:00 Urine Bilirubin NEGATIVE (NEGATIVE) 10/05/18 00:00 Urine Urobilinogen 0.2 E.U./dL (0.2 - 1.0) 10/05/18 00:00 Ur Leukocyte Esterase SMALL (NEGATIVE) H 10/05/18 00:00 Urine RBC 0-2 /hpf (0-5) H 10/05/18 00:00 Urine WBC 10-25 /hpf (0-5) H 10/05/18 00:00 Ur Epithelial Cells NONE SEEN /lpf (FEW) 10/05/18 00:00 Urine Bacteria MODERATE /hpf (NONE SEEN) H 10/05/18 00:00 Ur Random Sodium 64 mmol/L 10/05/18 00:00 Urine Creatinine 69.0 mg/dl (39.0-259.0) 10/05/18 00:00 Microalb/Creat Ratio 87.3 mg/g creat (0.0-30.0) H 10/05/18 00:00 Tobramycin Peak 6.2 ug/mL (4.0-10.0) 10/06/18 11:00 Tobramycin Trough 1.1 ug/mL (0.5-2.0) 10/06/18 08:45 Random Vancomycin 23.4 ug/mL (5.0-40.0) 10/07/18 05:50 - Physical Exam Vitals and I&O: Vital Signs Temp 97.8 F 10/08/18 16:12 Pulse 70 10/08/18 16:12 Resp 18 10/08/18 16:12 BP 123/77 10/08/18 16:12 Pulse Ox 98 10/08/18 16:12 Intake & Output 10/07/18 10/08/18 10/08/18 18:59 06:59 18:59 Intake Total 8487.654 8389 1500 Output Total 2020 500 Balance -99.167 2153 1500 Weight (lbs) 74.843 kg 73.074 kg 73.028 kg Intake: Intake, IV Amount 003.102 7958 Sodium Chloride 0.45% 1, 936.207 7791 000 ml @ 125 mls/hr IV . Q8H [facility] Rx#:[id number] Tobramycin Sulfate 120 mg 103 In Sodium Chloride 0.9% 100 ml @ 100 mls/hr IV Q24HR [facility] [place] Rx#:[id number] Vancomycin HCl 1.5 gm In 500 Sodium Chloride 0.9% 500 ml @ 250 mls/hr IV Q24H [facility] [place] Rx#:[id number] cefTRIAXone 1 gm In 50 Sodium Chloride 0.9% 50 ml @ 100 mls/hr IV Q24HR [facility] [place] Rx#:[id number] Oral 1000 1500 Output: Drainage 20 RIGHT BUTTOCK 20 Urine 2000 500 Other: # Voids 3 1,400 # Bowel Movements 1 0 Weight Source Bedscale Bedscale Bedscale Active Medications: Current Medications Acetaminophen (Tylenol Extra Strength) 1,000 mg PO Q4HR PRN PRN Reason: Pain (Moderate) LEVEL 4-6 Stop: 12/02/18 22:52 Acetaminophen (Tylenol) 650 mg PO DAILY [facility] [place] Stop: 12/03/18 08:59 Last Admin: 10/08/18 08:39 Dose: 650 mg Acetaminophen (Tylenol) 650 mg PO Q4H PRN PRN Reason: MILD PAIN OR TEMP >101 Amitriptyline HCl (Elavil) 50 mg PO HS [facility] Stop: 12/03/18 20:59 Last Admin: 10/07/18 20:21 Dose: 50 mg Ascorbic Acid (Vitamin C) 500 mg PO DAILY [facility] Stop: 12/04/18 08:59 Last Admin: 10/08/18 08:36 Dose: 500 mg Aspirin (Aspirin Chewable) 81 mg PO DAILY [facility] Stop: 12/04/18 08:59 Last Admin: 10/08/18 08:38 Dose: 81 mg Baclofen (Lioresal) 10 mg PO Q8H [facility] Stop: 12/03/18 15:59 Last Admin: 10/08/18 16:40 Dose: 10 mg [place] Oil/German Balsam/Trypsin (Venelex) 1 appl TP DAILY [facility] Stop: 12/04/18 16:59 Last Admin: 10/08/18 13:27 Dose: 1 appl Cholecalciferol (Vitamin D3) 1,000 iu PO DAILY [facility] Stop: 12/04/18 08:59 Last Admin: 10/08/18 08:36 Dose: 1,000 iu Docusate Sodium (Colace) 100 mg PO DAILY [facility] Stop: 12/04/18 08:59 Last Admin: 10/08/18 08:36 Dose: 100 mg Duloxetine HCl (Cymbalta) 30 mg PO DAILY [facility] Stop: 12/07/18 08:59 Last Admin: 10/08/18 08:40 Dose: 30 mg Hydromorphone HCl (Dilaudid) 2 mg IVP Q3H PRN PRN Reason: SEVERE PAIN Stop: 12/04/18 14:18 Last Admin: 10/08/18 16:41 Dose: 2 mg Sodium Chloride (Nacl 0.45%) 1,000 mls @ 125 mls/hr IV .Q8H [facility] Stop: 12/02/18 22:12 Last Admin: 10/08/18 06:47 Dose: 125 mls/hr Vancomycin HCl 1.5 gm/ Sodium (Chloride) 500 mls @ 250 mls/hr IV Q24H [facility] Stop: 12/06/18 20:59 Last Infusion: 10/08/18 01:54 Dose: Infused Cefepime HCl 2 gm/ Dextrose 100 mls @ 100 mls/hr IV Q12HR [facility] Stop: 12/07/18 20:59 Insulin Aspart (Novolog Insulin Sliding Scale) 0 units SUBQ ACHS [facility] [place]; Protocol Stop: 12/04/18 16:29 Last Admin: 10/08/18 11:57 Dose: Not Given Lactobacillus Rhamnosus (Culturelle 15b) 1 each PO DAILY [facility] [place] Stop: 12/07/18 08:59 Last Admin: 10/08/18 08:38 Dose: 1 each Lisinopril (Zestril) 10 mg PO DAILY [facility] [place] Stop: 12/04/18 08:59 Last Admin: 10/08/18 08:37 Dose: 10 mg Magnesium Hydroxide (Milk Of Magnesia) 30 ml PO HS PRN PRN Reason: Constipation Stop: 12/03/18 14:39 Miscellaneous (Duloxetine Hcl [Cymbalta]) 20 mg PO DAILY [facility] [place] Stop: 12/04/18 08:59 Miscellaneous (Vancomycin Iv Per Pharmacy) 1 [facility] PRN [facility] Stop: 12/04/18 23:44 Miscellaneous (Probiotic Screen) 1 [facility] PRN PRN PRN Reason: PROTOCOL Stop: 12/06/18 15:29 Mupirocin (Bactroban Oint) 1 appl NS BID [facility] [place] Stop: 10/10/18 09:01 Last Admin: 10/08/18 16:41 Dose: 1 appl Ondansetron HCl (Zofran) 4 mg IV Q6H PRN PRN Reason: Nausea / Vomiting Stop: 12/02/18 22:12 Pregabalin (Lyrica) 150 mg PO BID [facility] [place] Stop: 12/03/18 16:59 Last Admin: 10/08/18 16:41 Dose: 150 mg General: Alert, Mild distress HEENT: Atraumatic, Mucous membr. moist/pink Neck: Supple, +2 carotid pulse wo bruit Cardiovascular: Regular rate, Normal S1, Normal S2 Lungs: Clear to auscultation Abdomen: Bowel sounds, Soft Extremities: no Edema Neurological: Sensation intact Skin: no Rash Psych/Mental Status: Mood NL - Procedures Procedures: Procedures Procedure Code Date EXCISION OF RIGHT PELVIC BONE, OPEN APPROACH [id number] 10/03/18 EXCISION OF RIGHT UPPER FEMUR, OPEN APPROACH [id number] 07/25/18 INSPECTION OF LOWER INTESTINAL TRACT, ENDO [id number] 05/20/18 REPAIR ABDOMINAL WALL, OPEN APPROACH [id number] 07/25/18 Assessment/Plan - Problem List Patient Problems: All Active Problems FALL WITH LACERATION TO LEFT FRONTAL (Acute) - Assessment Assessment: MAGDALENA S/P Fall Left Eyebrow Laceration T2DM Ess Htn Paranoid Schizo PAD S/P AKA B/L hip Ulcers S/P closure right hip wound - Plan Plan: Lab - Result Diagrams 10/05/18 05:15 10/05/18 05:15 Current Medications Acetaminophen (Tylenol Extra Strength) 1,000 mg PO Q4HR PRN PRN Reason: Pain (Moderate) LEVEL 4-6 Stop: 12/02/18 22:52 Acetaminophen (Tylenol) 650 mg PO DAILY [facility] [place] Stop: 12/03/18 08:59 Last Admin: 10/05/18 10:32 Dose: Not Given Acetaminophen (Tylenol) 650 mg PO Q4H PRN PRN Reason: MILD PAIN OR TEMP >101 Amitriptyline HCl (Elavil) 50 mg PO HS [facility] [place] Stop: 12/03/18 20:59 Last Admin: 10/05/18 00:22 Dose: 50 mg Ascorbic Acid (Vitamin C) 500 mg PO DAILY [facility] [place] Stop: 12/04/18 08:59 Last Admin: 10/05/18 10:33 Dose: Not Given Aspirin (Aspirin Chewable) 81 mg PO DAILY [facility] [place] Stop: 12/04/18 08:59 Last Admin: 10/05/18 10:33 Dose: Not Given Baclofen (Lioresal) 10 mg PO Q8H [facility] [place] Stop: 12/03/18 15:59 Last Admin: 10/05/18 10:32 Dose: Not Given Cholecalciferol (Vitamin D3) 1,000 iu PO DAILY [facility] [place] Stop: 12/04/18 08:59 Last Admin: 10/05/18 10:33 Dose: Not Given Docusate Sodium (Colace) 100 mg PO DAILY [facility] [place] Stop: 12/04/18 08:59 Last Admin: 10/05/18 10:33 Dose: Not Given Hydromorphone HCl (Dilaudid) 2 mg IVP Q4HR PRN PRN Reason: Severe Pain Stop: 12/03/18 20:13 Last Admin: 10/05/18 11:10 Dose: 2 mg Ceftriaxone Sodium 1 gm/ (Sodium Chloride) 50 mls @ 100 mls/hr IV Q24HR [facility] [place] Stop: 12/03/18 20:59 Last Infusion: 10/04/18 21:40 Dose: Infused Sodium Chloride (Nacl 0.45%) 1,000 mls @ 125 mls/hr IV .Q8H [facility] [place] Stop: 12/02/18 22:12 Last Admin: 10/05/18 12:19 Dose: 125 mls/hr Tobramycin Sulfate 120 mg/ (Sodium Chloride) 103 mls @ 100 mls/hr IV Q24HR [facility] [place] Stop: 12/03/18 20:59 Last Admin: 10/05/18 07:36 Dose: 100 mls/hr Tobramycin Sulfate 120 mg/ (Sodium Chloride) 103 mls @ 100 mls/hr IV Q24HR [facility] [place] Stop: 12/05/18 08:59 Insulin Aspart (Novolog Insulin Sliding Scale) 0 units SUBQ Q6HR [facility] [place]; Protocol Stop: 12/03/18 00:00 Last Admin: 10/05/18 12:04 Dose: Not Given Lisinopril (Zestril) 10 mg PO DAILY [facility] [place] Stop: 12/04/18 08:59 Last Admin: 10/05/18 10:33 Dose: Not Given Magnesium Hydroxide (Milk Of Magnesia) 30 ml PO HS PRN PRN Reason: Constipation Stop: 12/03/18 14:39 Miscellaneous (Collagenase Clostridium Hist. [Santyl]) 1 appl TP DAILY [facility] [place] Stop: 12/04/18 08:59 Miscellaneous (Duloxetine Hcl [Cymbalta]) 20 mg PO DAILY [facility] [place] Stop: 12/04/18 08:59 Miscellaneous (Tobramycin Iv Per Pharmacy) 1 ea [facility] PRN PRN PRN Reason: RX DOSING Stop: 12/03/18 16:04 Ondansetron HCl (Zofran) 4 mg IV Q6H PRN PRN Reason: Nausea / Vomiting Stop: 12/02/18 22:12 Pregabalin (Lyrica) 150 mg PO BID [facility] [place] Stop: 12/03/18 16:59 Last Admin: 10/05/18 10:33 Dose: Not Given Lab - Result Diagrams 10/07/18 05:50 10/07/18 05:50 Kidney fnc remain stable w/ Cr. of 1.7 continue ivf noted Vanco, Tobra levels f/u electrolytes Nutritional Asmnt/Malnutr-PDOC - Dietary Evaluation Malnutrition Findings (Please click <Entered> for more info): Nutritional Asmnt/Malnutrition Start: 10/05/18 14: 30 Text: Status: Complete Freq: Protocol: Document 10/05/18 14:30 FADI (Rec: 10/05/18 15:14 [email or web address]) Nutritional Asmnt/Malnutrition Patient General Information Nutritional Screening High Risk Consult Diagnosis infected decubiti, leukocytosis Pertinent Medical Hx/Surgical Hx HTN, DM, asthma, COPD, bilateral BKA, depression, bilateral PNA Subjective Information Received diet consult for low christina. Pt was undergoing a medical procedure at time of visit; unable to speak with him. Nursing noted PO intake: 0-75% yesterday. Per nurse note, pt had excisional debridement for right hip decubitus ulcer. Per MD note, current internal medicine assessment includes sepsis and renal failure. BMI 24.9 adjusted by bi BKA. Current Diet Order/ Nutrition Support CCHO 45 gm, low Na, nonfat milk Pertinent Medications Vit C, Vit D3, colace, novolog , tobramycin, Nacl 0.45% Pertinent Labs 10/05: BUN 28, Cr 1.9, Ca 8.5, POC 76-102, Phos 4.2 10/04: BUN 28, Cr 2.1, Ca 9.1, POC 114-154 Nutritional Hx/Data Height 1.83 m Height (Calculated Centimeters) 182.9 Current Weight (lbs) 73.981 kg Weight (Calculated Kilograms) 74.0 Weight (Calculated Grams) 29935.9 [place] Body Weight 157 lb (adj for bilateral AKA) Body Mass Index (BMI) 22.1 Weight Status Approriate GI Symptoms GI Symptoms None Last BM none noted Difficult in: None Food Allergies Yes: pineapple, strawberry, mushroom Skin Integrity/Comment: bilateral BKA, 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 Problem Problem Altered nutrition related lab values Etiology dx of renal failure per MD note Signs/Symptoms: BUN 28, Cr 1.9, GFR 42.2 1. Problem Problem Increased nutrient needs Etiology wound healing, impaired skin integrity, sepsis Signs/Symptoms: ulcer/wound to buttocks and posterior thigh Malnutrition Alert Is there a minimum of two criteria No selected? Query Text:Check all the applicable criteria. A minimum of two criteria are recommended for diagnosis of either severe or non-severe malnutrition. Malnutrition Related to Morbid Obesity Malnutrition related to morbid obesity No Intervention/Recommendation Comments 1. Recommend to modify [facility] diet to 60 gm to meet pt's kcal needs 2. Continue with low Na diet w / nonfat milk as ordered, which will provide 100% of nutritional needs 3. Consider adding nutrition supplement if PO intake <75% 4. Monitor renal and glucose labs, skin integrity, wt, and PO intake 5. F/U as moderate risk in 3-5 days, 10/08-10/10 Expected Outcomes/Goals Expected Outcomes/Goals 1. PO intake to meet at least 75% of all meals 2. Wt stability, wounds to heal, and nutrition related labs to approach normal limits Reviewed by Rahel Minaya RD
[2018-10-08] MEDS: Vancomycin HCl 1.5 GM in Sodium Chloride 0.9% 500 ML IV SCH (21:09)
[2018-10-08 22:30] LABS: BUN - UREA NITROGEN 20 mg/dL (7-25); CALCIUM SERUM 8.4 mg/dL (8.6-10.3); CARBON DIOXIDE 20.3 mEq/L (21.0-31.0); CHLORIDE 105 mEq/L (98-107); CREATININE - SERUM 1.3 mg/dL (0.7-1.3); GFR AFRICAN-AMERICAN > 60.0 ml/min (>90); GFR NON AFRICAN-AMERICAN > 60.0 ml/min; GLUCOSE 90 mg/dL (70-105); POTASSIUM SERUM 4.3 mEq/L (3.5-5.1); SODIUM SERUM 135 mEq/L (136-145)
[2018-10-09] MEDS: Sodium Chloride 0.45% 1,000 ML IV SCH ×2 (03:23→10:43)
[2018-10-09] MEDS: HYDROmorphone 2 mg/mL 1mL Vial IVP PRN ×6 (04:17→19:48)
[2018-10-09 06:00] LABS: % EOSINOPHILS 6.1 % (0.0-5.0); % LYMPHOCYTES 13.4 % (20.0-50.0); % MONOCYTES 12.2 % (2.0-10.0); % NEUTROPHILS 67.3 % (40.0-80.0); BASOPHILE ABSOLUTE 0.1 Th/cumm (0-0.2); EOSINOPHILE ABSOLUTE 0.5 Th/cmm (0.1-0.4); HEMATOCRIT 36.4 % (41.0-60); HEMOGLOBIN 12.1 gm/dL (12-16); LYMPHOCYTE ABSOLUTE 1.2 Th/cmm (1.5-3.0); MEAN CELL VOLUME 85.2 fl (80-99); MEAN CORPUSCULAR HEMOGLOBIN 28.3 pg (26.0-30.0); MEAN CORPUSCULAR HGB CONC 33.2 pg (28.0-36.0); MEAN PLATELET VOLUME 8.5 fl; NEUTROPHILE ABSOLUTE 5.8 Th/cmm (1.8-8.0); PLATELET COUNT 227 Th/cmm (150-400); RED BLOOD COUNT 4.27 Mil/cmm (4.30-5.70); RED CELL DISTRIBUTION WIDTH 14.7 % (11.5-20.0); WHITE BLOOD COUNT 8.6 Th/cmm (4.8-10.8)
[2018-10-09 06:19] LABS: ANION GAP 11.4 (7.0-16.0); BUN - UREA NITROGEN 19 mg/dL (7-25); CALCIUM SERUM 8.4 mg/dL (8.6-10.3); CARBON DIOXIDE 23.6 mEq/L (21.0-31.0); CHLORIDE 107 mEq/L (98-107); CREATININE - SERUM 1.5 mg/dL (0.7-1.3); GFR AFRICAN-AMERICAN > 60.0 ml/min (>90); GFR NON AFRICAN-AMERICAN 51.5 ml/min; GLUCOSE 91 mg/dL (70-105); SODIUM SERUM 138 mEq/L (136-145)
[2018-10-09] MEDS: INSULIN ASPART SLIDING SCALE 100 UNITS/ML UNIT SUBQ SCH ×3 (06:29→16:49)
[2018-10-09] MEDS: Multivitamin w/ Minerals Tab PO SCH (08:09)
[2018-10-09] MEDS: Aspirin 81mg Chewable Tab PO SCH (08:09)
[2018-10-09] MEDS: Lactobacillus Rhamnosus GG 15 Billion CFU CAP.SPRINK PO SCH (08:09)
[2018-10-09] MEDS: Venelex 60gm Tube TP SCH (10:43)
--- NOTE | 2018-10-09 13:46 | General Progress Note ---
Subjective - Review of Systems Service Date: 10/09/18 Subjective: awake, less agitated Objective - Results Result Diagrams: 10/09/18 05:20 10/09/18 05:20 Recent Labs: Laboratory Last Values WBC 8.6 Th/cmm (4.8-10.8) 10/09/18 05:20 RBC 4.27 Mil/cmm (4.30-5.70) L 10/09/18 05:20 Hgb 12.1 gm/dL (12-16) 10/09/18 05:20 Hct 36.4 % (41.0-60) L 10/09/18 05:20 MCV 85.2 fl (80-99) 10/09/18 05:20 MCH 28.3 pg (26.0-30.0) 10/09/18 05:20 MCHC Differential 33.2 pg (28.0-36.0) 10/09/18 05:20 RDW 14.7 % (11.5-20.0) 10/09/18 05:20 Plt Count 227 Th/cmm (150-400) 10/09/18 05:20 MPV 8.5 fl 10/09/18 05:20 Add Manual Diff YES 10/05/18 05:15 Neutrophils % 67.3 % (40.0-80.0) 10/09/18 05:20 Band Neutrophils % 1 % (0-10) 10/05/18 05:15 Lymphocytes % 13.4 % (20.0-50.0) L 10/09/18 05:20 Monocytes % 12.2 % (2.0-10.0) H 10/09/18 05:20 Eosinophils % 6.1 % (0.0-5.0) H 10/09/18 05:20 Basophils % 1.0 % (0.0-2.0) 10/09/18 05:20 Neutrophils (Manual) 65 % (40-80) 10/05/18 05:15 Lymphocytes 20 % (20-50) 10/05/18 05:15 Monocytes 6 % (2-10) 10/05/18 05:15 Eosinophils 8 % (0-5) H 10/05/18 05:15 Basophils 0 % (0-3) 10/05/18 05:15 Eos Smear Source URINE 10/05/18 00:00 Eos Smear Total Cells NONE SEEN (NONE SEEN) 10/05/18 00:00 PT 10.0 SECONDS (9.5-11.5) 10/05/18 05:15 INR 0.99 (0.5-1.4) 10/05/18 05:15 PTT (Actin FS) 27.2 SECONDS (26.0-38.0) 10/05/18 05:15 Sodium 138 mEq/L (136-145) 10/09/18 05:20 Potassium 4.0 mEq/L (3.5-5.1) 10/09/18 05:20 Chloride 107 mEq/L (98-107) 10/09/18 05:20 Carbon Dioxide 23.6 mEq/L (21.0-31.0) 10/09/18 05:20 Anion Gap 11.4 (7.0-16.0) 10/09/18 05:20 BUN 19 mg/dL (7-25) 10/09/18 05:20 Creatinine 1.5 mg/dL (0.7-1.3) H 10/09/18 05:20 Est GFR ( Amer) > 60.0 ml/min (>90) 10/09/18 05:20 Est GFR (Non-Af Amer) 51.5 ml/min 10/09/18 05:20 BUN/Creatinine Ratio 12.7 10/09/18 05:20 Glucose 91 mg/dL (70-105) 10/09/18 05:20 POC Glucose 117 MG/DL (70 - 105) H 10/09/18 11:57 Calcium 8.4 mg/dL (8.6-10.3) L 10/09/18 05:20 Phosphorus 4.2 mg/dL (2.5-5.0) 10/05/18 05:15 Magnesium 1.9 mg/dL (1.9-2.7) 10/05/18 05:15 Total Bilirubin 0.3 mg/dL (0.3-1.0) 10/06/18 08:45 AST 17 U/L (13-39) 10/06/18 08:45 ALT 11 U/L (7-52) 10/06/18 08:45 Alkaline Phosphatase 68 U/L (34-104) 10/06/18 08:45 Troponin I 0.05 ng/mL (0.01-0.05) 10/03/18 18:50 Total Protein 6.8 gm/dL (6.0-8.3) 10/06/18 08:45 Albumin 3.7 gm/dL (4.2-5.5) L 10/06/18 08:45 Globulin 3.1 gm/dL 10/06/18 08:45 Albumin/Globulin Ratio 1.2 (1.0-1.8) 10/06/18 08:45 TSH 0.44 uIU/ml (0.34-5.60) 10/03/18 18:50 Urine Source CLEAN C 10/05/18 00:00 Urine Color YELLOW 10/05/18 00:00 Urine Clarity HAZY (CLEAR) 10/05/18 00:00 Urine pH 5.5 (4.6 - 8.0) 10/05/18 00:00 Ur Specific [place] 1.015 (1.005-1.030) 10/05/18 00:00 Urine Protein NEGATIVE mg/dL (NEGATIVE) 10/05/18 00:00 Urine Glucose (UA) NEGATIVE mg/dL (NEGATIVE) 10/05/18 00:00 Urine Ketones NEGATIVE mg/dL (NEGATIVE) 10/05/18 00:00 Urine Blood NEGATIVE (NEGATIVE) 10/05/18 00:00 Urine Nitrate NEGATIVE (NEGATIVE) 10/05/18 00:00 Urine Bilirubin NEGATIVE (NEGATIVE) 10/05/18 00:00 Urine Urobilinogen 0.2 E.U./dL (0.2 - 1.0) 10/05/18 00:00 Ur Leukocyte Esterase SMALL (NEGATIVE) H 10/05/18 00:00 Urine RBC 0-2 /hpf (0-5) H 10/05/18 00:00 Urine WBC 10-25 /hpf (0-5) H 10/05/18 00:00 Ur Epithelial Cells NONE SEEN /lpf (FEW) 10/05/18 00:00 Urine Bacteria MODERATE /hpf (NONE SEEN) H 10/05/18 00:00 Ur Random Sodium 64 mmol/L 10/05/18 00:00 Urine Creatinine 69.0 mg/dl (39.0-259.0) 10/05/18 00:00 Microalb/Creat Ratio 87.3 mg/g creat (0.0-30.0) H 10/05/18 00:00 Tobramycin Peak 6.2 ug/mL (4.0-10.0) 10/06/18 11:00 Tobramycin Trough 1.1 ug/mL (0.5-2.0) 10/09/18 07:55 Vancomycin Trough 21.1 ug/mL (5-10) H 10/08/18 21:40 Random Vancomycin 23.4 ug/mL (5.0-40.0) 10/07/18 05:50 - Physical Exam Vitals and I&O: Vital Signs Temp 97.7 F 10/09/18 11:39 Pulse 64 10/09/18 11:39 Resp 17 10/09/18 11:39 BP 147/73 10/09/18 11:39 Pulse Ox 99 10/09/18 11:39 Intake & Output 10/08/18 10/09/18 10/09/18 18:59 06:59 18:59 Intake Total 2500 1691.667 625 Balance 2500 1691.667 625 Weight (lbs) 73.028 kg 73.737 kg Intake: Intake, IV Amount 1000 491.667 625 Cefepime 2 gm In Dextrose 100 100 5% 100 ml @ 100 mls/hr IV Q12HR [facility] Rx#: [id number] Sodium Chloride 0.45% 1, 1000 391.667 525 000 ml @ 125 mls/hr IV . Q8H [facility] Rx#:[id number] Oral 1500 1200 Other: # Voids 1,400 3 Weight Source Bedscale Bedscale Active Medications: Current Medications Acetaminophen (Tylenol Extra Strength) 1,000 mg PO Q4HR PRN PRN Reason: Pain (Moderate) LEVEL 4-6 Stop: 12/02/18 22:52 Acetaminophen (Tylenol) 650 mg PO DAILY [facility] Stop: 12/03/18 08:59 Last Admin: 10/09/18 08:09 Dose: 650 mg Acetaminophen (Tylenol) 650 mg PO Q4H PRN PRN Reason: MILD PAIN OR TEMP >101 Amitriptyline HCl (Elavil) 50 mg PO HS [facility] Stop: 12/03/18 20:59 Last Admin: 10/08/18 21:09 Dose: 50 mg Ascorbic Acid (Vitamin C) 500 mg PO DAILY [facility] Stop: 12/04/18 08:59 Last Admin: 10/09/18 08:10 Dose: 500 mg Aspirin (Aspirin Chewable) 81 mg PO DAILY [facility] Stop: 12/04/18 08:59 Last Admin: 10/09/18 08:09 Dose: 81 mg Baclofen (Lioresal) 10 mg PO Q8H [facility] Stop: 12/03/18 15:59 Last Admin: 10/09/18 08:09 Dose: 10 mg [place] [employer]/[place] Balsam/Trypsin (Venelex) 1 appl TP DAILY [facility] Stop: 12/04/18 16:59 Last Admin: 10/09/18 10:43 Dose: 1 appl Cholecalciferol (Vitamin D3) 1,000 iu PO DAILY [facility] Stop: 12/04/18 08:59 Last Admin: 10/09/18 08:09 Dose: 1,000 iu Docusate Sodium (Colace) 100 mg PO DAILY [facility] Stop: 12/04/18 08:59 Last Admin: 10/09/18 09:23 Dose: Not Given Duloxetine HCl (Cymbalta) 30 mg PO DAILY [facility] Stop: 12/07/18 08:59 Last Admin: 10/09/18 08:09 Dose: 30 mg Hydromorphone HCl (Dilaudid) 2 mg IVP Q3H PRN PRN Reason: SEVERE PAIN Stop: 12/04/18 14:18 Last Admin: 10/09/18 13:41 Dose: 2 mg Sodium Chloride (Nacl 0.45%) 1,000 mls @ 125 mls/hr IV .Q8H [facility] Stop: 12/02/18 22:12 Last Admin: 10/09/18 10:43 Dose: 125 mls/hr Cefepime HCl 2 gm/ Dextrose 100 mls @ 100 mls/hr IV Q12HR [facility] Stop: 12/07/18 20:59 Last Infusion: 10/09/18 09:24 Dose: Infused Vancomycin HCl 1.5 gm/ Sodium (Chloride) 500 mls @ 250 mls/hr IV Q36H [facility] Stop: 12/06/18 20:59 Insulin Aspart (Novolog Insulin Sliding Scale) 0 units SUBQ ACHS [facility]; Protocol Stop: 12/04/18 16:29 Last Admin: 10/09/18 12:36 Dose: Not Given Lactobacillus Rhamnosus (Culturelle 15b) 1 each PO DAILY [facility] Stop: 12/07/18 08:59 Last Admin: 10/09/18 08:09 Dose: 1 each Lisinopril (Zestril) 10 mg PO DAILY [facility] Stop: 12/04/18 08:59 Last Admin: 10/09/18 08:10 Dose: 10 mg Magnesium Hydroxide (Milk Of Magnesia) 30 ml PO HS PRN PRN Reason: Constipation Stop: 12/03/18 14:39 Miscellaneous (Duloxetine Hcl [Cymbalta]) 20 mg PO DAILY [facility] Stop: 12/04/18 08:59 Miscellaneous (Vancomycin Iv Per Pharmacy) 1 ea PRN [facility] Stop: 12/04/18 23:44 Miscellaneous (Probiotic Screen) 1 ea PRN PRN PRN Reason: PROTOCOL Stop: 12/06/18 15:29 Mupirocin (Bactroban Oint) 1 appl NS BID [facility] Stop: 10/10/18 09:01 Last Admin: 10/09/18 08:09 Dose: 1 appl Ondansetron HCl (Zofran) 4 mg IV Q6H PRN PRN Reason: Nausea / Vomiting Stop: 12/02/18 22:12 Pregabalin (Lyrica) 150 mg PO BID [facility] Stop: 12/03/18 16:59 Last Admin: 10/09/18 08:09 Dose: 150 mg General: Alert, Mild distress HEENT: Atraumatic, Mucous membr. moist/pink Neck: Supple, +2 carotid pulse wo bruit Cardiovascular: Regular rate, Normal S1, Normal S2 Lungs: Clear to auscultation Abdomen: Bowel sounds, Soft Extremities: no Edema Neurological: Sensation intact Skin: no Rash Psych/Mental Status: Mood NL - Procedures Procedures: Procedures Procedure Code Date EXCISION OF RIGHT PELVIC BONE, OPEN APPROACH [id number] 10/03/18 EXCISION OF RIGHT UPPER FEMUR, OPEN APPROACH [id number] 07/25/18 INSPECTION OF LOWER INTESTINAL TRACT, ENDO [id number] 05/20/18 REPAIR ABDOMINAL WALL, OPEN APPROACH [id number] 07/25/18 Assessment/Plan - Problem List Patient Problems: All Active Problems FALL WITH LACERATION TO LEFT FRONTAL (Acute) - Assessment Assessment: MAGDALENA S/P Fall Left Eyebrow Laceration T2DM Ess Htn Paranoid Schizo PAD S/P AKA B/L hip Ulcers S/P closure right hip wound - Plan Plan: Lab - Result Diagrams 10/05/18 05:15 10/05/18 05:15 Current Medications Acetaminophen (Tylenol Extra Strength) 1,000 mg PO Q4HR PRN PRN Reason: Pain (Moderate) LEVEL 4-6 Stop: 12/02/18 22:52 Acetaminophen (Tylenol) 650 mg PO DAILY [facility] Stop: 12/03/18 08:59 Last Admin: 10/05/18 10:32 Dose: Not Given Acetaminophen (Tylenol) 650 mg PO Q4H PRN PRN Reason: MILD PAIN OR TEMP >101 Amitriptyline HCl (Elavil) 50 mg PO HS [facility] Stop: 12/03/18 20:59 Last Admin: 10/05/18 00:22 Dose: 50 mg Ascorbic Acid (Vitamin C) 500 mg PO DAILY [facility] Stop: 12/04/18 08:59 Last Admin: 10/05/18 10:33 Dose: Not Given Aspirin (Aspirin Chewable) 81 mg PO DAILY [facility] Stop: 12/04/18 08:59 Last Admin: 10/05/18 10:33 Dose: Not Given Baclofen (Lioresal) 10 mg PO Q8H [facility] Stop: 12/03/18 15:59 Last Admin: 10/05/18 10:32 Dose: Not Given Cholecalciferol (Vitamin D3) 1,000 iu PO DAILY [facility] Stop: 12/04/18 08:59 Last Admin: 10/05/18 10:33 Dose: Not Given Docusate Sodium (Colace) 100 mg PO DAILY [facility] Stop: 12/04/18 08:59 Last Admin: 10/05/18 10:33 Dose: Not Given Hydromorphone HCl (Dilaudid) 2 mg IVP Q4HR PRN PRN Reason: Severe Pain Stop: 12/03/18 20:13 Last Admin: 10/05/18 11:10 Dose: 2 mg Ceftriaxone Sodium 1 gm/ (Sodium Chloride) 50 mls @ 100 mls/hr IV Q24HR [facility] Stop: 12/03/18 20:59 Last Infusion: 10/04/18 21:40 Dose: Infused Sodium Chloride (Nacl 0.45%) 1,000 mls @ 125 mls/hr IV .Q8H [facility] Stop: 12/02/18 22:12 Last Admin: 10/05/18 12:19 Dose: 125 mls/hr Tobramycin Sulfate 120 mg/ (Sodium Chloride) 103 mls @ 100 mls/hr IV Q24HR [facility] Stop: 12/03/18 20:59 Last Admin: 10/05/18 07:36 Dose: 100 mls/hr Tobramycin Sulfate 120 mg/ (Sodium Chloride) 103 mls @ 100 mls/hr IV Q24HR [facility] Stop: 12/05/18 08:59 Insulin Aspart (Novolog Insulin Sliding Scale) 0 units SUBQ Q6HR [facility]; Protocol Stop: 12/03/18 00:00 Last Admin: 10/05/18 12:04 Dose: Not Given Lisinopril (Zestril) 10 mg PO DAILY [facility] Stop: 12/04/18 08:59 Last Admin: 10/05/18 10:33 Dose: Not Given Magnesium Hydroxide (Milk Of Magnesia) 30 ml PO HS PRN PRN Reason: Constipation Stop: 12/03/18 14:39 Miscellaneous (Collagenase Clostridium Hist. [Santyl]) 1 appl TP DAILY [facility] Stop: 12/04/18 08:59 Miscellaneous (Duloxetine Hcl [Cymbalta]) 20 mg PO DAILY [facility] Stop: 12/04/18 08:59 Miscellaneous (Tobramycin Iv Per Pharmacy) 1 ea MC PRN PRN PRN Reason: RX DOSING Stop: 12/03/18 16:04 Ondansetron HCl (Zofran) 4 mg IV Q6H PRN PRN Reason: Nausea / Vomiting Stop: 12/02/18 22:12 Pregabalin (Lyrica) 150 mg PO BID [facility] Stop: 12/03/18 16:59 Last Admin: 10/05/18 10:33 Dose: Not Given Lab - Result Diagrams 10/09/18 05:20 10/09/18 05:20 Kidney fnc remain stable w/ Cr. of 1.5 continue ivf noted Vanco, Tobra levels f/u electrolytes Nutritional Asmnt/Malnutr-PDOC - Dietary Evaluation Malnutrition Findings (Please click <Entered> for more info): Nutritional Asmnt/Malnutrition Start: 10/05/18 14: 30 Text: Status: Complete Freq: Protocol: Document 10/05/18 14:30 FADI (Rec: 10/05/18 15:14 [id number]) Nutritional Asmnt/Malnutrition Patient General Information Nutritional Screening High Risk Consult Diagnosis infected decubiti, leukocytosis Pertinent Medical Hx/Surgical Hx HTN, DM, asthma, COPD, bilateral BKA, depression, bilateral PNA Subjective Information Received diet consult for low christina. Pt was undergoing a medical procedure at time of visit; unable to speak with him. Nursing noted PO intake: 0-75% yesterday. Per nurse note, pt had excisional debridement for right hip decubitus ulcer. Per MD note, current internal medicine assessment includes sepsis and renal failure. BMI 24.9 adjusted by bi BKA. Current Diet Order/ Nutrition Support CCHO 45 gm, low Na, nonfat milk Pertinent Medications Vit C, Vit D3, colace, novolog , tobramycin, Nacl 0.45% Pertinent Labs 10/05: BUN 28, Cr 1.9, Ca 8.5, POC 76-102, Phos 4.2 10/04: BUN 28, Cr 2.1, Ca 9.1, POC 114-154 Nutritional Hx/Data Height 1.83 m Height (Calculated Centimeters) 182.9 Current Weight (lbs) 73.981 kg Weight (Calculated Kilograms) 74.0 Weight (Calculated Grams) 60600.9 [place] Body Weight 157 lb (adj for bilateral AKA) Body Mass Index (BMI) 22.1 Weight Status Approriate GI Symptoms GI Symptoms None Last BM none noted Difficult in: None Food Allergies Yes: pineapple, strawberry, mushroom Skin Integrity/Comment: bilateral BKA, 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 Problem Problem Altered nutrition related lab values Etiology dx of renal failure per MD note Signs/Symptoms: BUN 28, Cr 1.9, GFR 42.2 1. Problem Problem Increased nutrient needs Etiology wound healing, impaired skin integrity, sepsis Signs/Symptoms: ulcer/wound to buttocks and posterior thigh Malnutrition Alert Is there a minimum of two criteria No selected? Query Text:Check all the applicable criteria. A minimum of two criteria are recommended for diagnosis of either severe or non-severe malnutrition. Malnutrition Related to Morbid Obesity Malnutrition related to morbid obesity No Intervention/Recommendation Comments 1. Recommend to modify CCHO diet to 60 gm to meet pt's kcal needs 2. Continue with low Na diet w / nonfat milk as ordered, which will provide 100% of nutritional needs 3. Consider adding nutrition supplement if PO intake <75% 4. Monitor renal and glucose labs, skin integrity, wt, and PO intake 5. F/U as moderate risk in 3-5 days, 10/08-10/10 Expected Outcomes/Goals Expected Outcomes/Goals 1. PO intake to meet at least 75% of all meals 2. Wt stability, wounds to heal, and nutrition related labs to approach normal limits Reviewed by Rahel Minaya RD
--- NOTE | 2018-10-09 15:00 | Internal Medicine Prog Note ---
Internal Medicine Subjective - Subjective Patient seen and examined:: chart reviewed Patient is:: awake, agitated, other (in no distress ) Per staff patient has:: no adverse event, tolerating meds Internal Medicine Objective - Results Result Diagrams: 10/09/18 05:20 10/09/18 05:20 Recent Labs: Laboratory Last Values WBC 8.6 Th/cmm (4.8-10.8) 10/09/18 05:20 RBC 4.27 Mil/cmm (4.30-5.70) L 10/09/18 05:20 Hgb 12.1 gm/dL (12-16) 10/09/18 05:20 Hct 36.4 % (41.0-60) L 10/09/18 05:20 MCV 85.2 fl (80-99) 10/09/18 05:20 MCH 28.3 pg (26.0-30.0) 10/09/18 05:20 MCHC Differential 33.2 pg (28.0-36.0) 10/09/18 05:20 RDW 14.7 % (11.5-20.0) 10/09/18 05:20 Plt Count 227 Th/cmm (150-400) 10/09/18 05:20 MPV 8.5 fl 10/09/18 05:20 Add Manual Diff YES 10/05/18 05:15 Neutrophils % 67.3 % (40.0-80.0) 10/09/18 05:20 Band Neutrophils % 1 % (0-10) 10/05/18 05:15 Lymphocytes % 13.4 % (20.0-50.0) L 10/09/18 05:20 Monocytes % 12.2 % (2.0-10.0) H 10/09/18 05:20 Eosinophils % 6.1 % (0.0-5.0) H 10/09/18 05:20 Basophils % 1.0 % (0.0-2.0) 10/09/18 05:20 Neutrophils (Manual) 65 % (40-80) 10/05/18 05:15 Lymphocytes 20 % (20-50) 10/05/18 05:15 Monocytes 6 % (2-10) 10/05/18 05:15 Eosinophils 8 % (0-5) H 10/05/18 05:15 Basophils 0 % (0-3) 10/05/18 05:15 Eos Smear Source URINE 10/05/18 00:00 Eos Smear Total Cells NONE SEEN (NONE SEEN) 10/05/18 00:00 PT 10.0 SECONDS (9.5-11.5) 10/05/18 05:15 INR 0.99 (0.5-1.4) 10/05/18 05:15 PTT (Actin FS) 27.2 SECONDS (26.0-38.0) 10/05/18 05:15 Sodium 138 mEq/L (136-145) 10/09/18 05:20 Potassium 4.0 mEq/L (3.5-5.1) 10/09/18 05:20 Chloride 107 mEq/L (98-107) 10/09/18 05:20 Carbon Dioxide 23.6 mEq/L (21.0-31.0) 10/09/18 05:20 Anion Gap 11.4 (7.0-16.0) 10/09/18 05:20 BUN 19 mg/dL (7-25) 10/09/18 05:20 Creatinine 1.5 mg/dL (0.7-1.3) H 10/09/18 05:20 Est GFR ( Amer) > 60.0 ml/min (>90) 10/09/18 05:20 Est GFR (Non-Af Amer) 51.5 ml/min 10/09/18 05:20 BUN/Creatinine Ratio 12.7 10/09/18 05:20 Glucose 91 mg/dL (70-105) 10/09/18 05:20 POC Glucose 117 MG/DL (70 - 105) H 10/09/18 11:57 Calcium 8.4 mg/dL (8.6-10.3) L 10/09/18 05:20 Phosphorus 4.2 mg/dL (2.5-5.0) 10/05/18 05:15 Magnesium 1.9 mg/dL (1.9-2.7) 10/05/18 05:15 Total Bilirubin 0.3 mg/dL (0.3-1.0) 10/06/18 08:45 AST 17 U/L (13-39) 10/06/18 08:45 ALT 11 U/L (7-52) 10/06/18 08:45 Alkaline Phosphatase 68 U/L (34-104) 10/06/18 08:45 Troponin I 0.05 ng/mL (0.01-0.05) 10/03/18 18:50 Total Protein 6.8 gm/dL (6.0-8.3) 10/06/18 08:45 Albumin 3.7 gm/dL (4.2-5.5) L 10/06/18 08:45 Globulin 3.1 gm/dL 10/06/18 08:45 Albumin/Globulin Ratio 1.2 (1.0-1.8) 10/06/18 08:45 TSH 0.44 uIU/ml (0.34-5.60) 10/03/18 18:50 Urine Source CLEAN C 10/05/18 00:00 Urine Color YELLOW 10/05/18 00:00 Urine Clarity HAZY (CLEAR) 10/05/18 00:00 Urine pH 5.5 (4.6 - 8.0) 10/05/18 00:00 Ur Specific [place] 1.015 (1.005-1.030) 10/05/18 00:00 Urine Protein NEGATIVE mg/dL (NEGATIVE) 10/05/18 00:00 Urine Glucose (UA) NEGATIVE mg/dL (NEGATIVE) 10/05/18 00:00 Urine Ketones NEGATIVE mg/dL (NEGATIVE) 10/05/18 00:00 Urine Blood NEGATIVE (NEGATIVE) 10/05/18 00:00 Urine Nitrate NEGATIVE (NEGATIVE) 10/05/18 00:00 Urine Bilirubin NEGATIVE (NEGATIVE) 10/05/18 00:00 Urine Urobilinogen 0.2 E.U./dL (0.2 - 1.0) 10/05/18 00:00 Ur Leukocyte Esterase SMALL (NEGATIVE) H 10/05/18 00:00 Urine RBC 0-2 /hpf (0-5) H 10/05/18 00:00 Urine WBC 10-25 /hpf (0-5) H 10/05/18 00:00 Ur Epithelial Cells NONE SEEN /lpf (FEW) 10/05/18 00:00 Urine Bacteria MODERATE /hpf (NONE SEEN) H 18 00:00 Ur Random Sodium 64 mmol/L 10/05/18 00:00 Urine Creatinine 69.0 mg/dl (39.0-259.0) 10/05/18 00:00 Microalb/Creat Ratio 87.3 mg/g creat (0.0-30.0) H 10/05/18 00:00 Tobramycin Peak 6.2 ug/mL (4.0-10.0) 10/06/18 11:00 Tobramycin Trough 1.1 ug/mL (0.5-2.0) 10/09/18 07:55 Vancomycin Trough 21.1 ug/mL (5-10) H 10/08/18 21:40 Random Vancomycin 23.4 ug/mL (5.0-40.0) 10/07/18 05:50 - Physical Exam Vitals and I&O: Vital Signs Temp 97.7 F 10/09/18 11:39 Pulse 64 10/09/18 11:39 Resp 17 10/09/18 11:39 BP 147/73 10/09/18 11:39 Pulse Ox 99 10/09/18 11:39 Intake & Output 10/08/18 10/09/18 10/09/18 18:59 06:59 18:59 Intake Total 2500 1691.667 625 Balance 2500 1691.667 625 Weight (lbs) 73.028 kg 73.737 kg Intake: Intake, IV Amount 1000 491.667 625 Cefepime 2 gm In Dextrose 100 100 5% 100 ml @ 100 mls/hr IV Q12HR [facility] Rx#: [id number] Sodium Chloride 0.45% 1, 1000 391.667 525 000 ml @ 125 mls/hr IV . Q8H [facility] Rx#:[id number] Oral 1500 1200 Other: # Voids 1,400 3 Weight Source Bedscale Bedscale Active Medications: Current Medications Acetaminophen (Tylenol Extra Strength) 1,000 mg PO Q4HR PRN PRN Reason: Pain (Moderate) LEVEL 4-6 Stop: 12/02/18 22:52 Acetaminophen (Tylenol) [address] [facility] Stop: 12/03/18 08:59 Last Admin: 10/09/18 08:09 Dose: 650 mg Acetaminophen (Tylenol) 650 mg PO Q4H PRN PRN Reason: MILD PAIN OR TEMP >101 Amitriptyline HCl (Elavil) [address] [facility] Stop: 12/03/18 20:59 Last Admin: 10/08/18 21:09 Dose: 50 mg Ascorbic Acid (Vitamin C) [address] [facility] Stop: 12/04/18 08:59 Last Admin: 10/09/18 08:10 Dose: 500 mg Aspirin (Aspirin Chewable) [address] [facility] Stop: 12/04/18 08:59 Last Admin: 10/09/18 08:09 Dose: 81 mg Baclofen (Lioresal) [address] [facility] Stop: 12/03/18 15:59 Last Admin: 10/09/18 08:09 Dose: 10 mg [place] Oil/[place] Balsam/Trypsin (Venelex) [address] [facility] Stop: 12/04/18 16:59 Last Admin: 10/09/18 10:43 Dose: 1 appl Cholecalciferol (Vitamin D3) 1,[address] [facility] Stop: 12/04/18 08:59 Last Admin: 10/09/18 08:09 Dose: 1,000 iu Docusate Sodium (Colace) [address] [facility] Stop: 12/04/18 08:59 Last Admin: 10/09/18 09:23 Dose: Not Given Duloxetine HCl (Cymbalta) [address] [facility] Stop: 12/07/18 08:59 Last Admin: 10/09/18 08:09 Dose: 30 mg Hydromorphone HCl (Dilaudid) 2 mg IVP Q3H PRN PRN Reason: SEVERE PAIN Stop: 12/04/18 14:18 Last Admin: 10/09/18 13:41 Dose: 2 mg Sodium Chloride (Nacl 0.45%) 1,000 mls @ 125 mls/hr IV .Q8H [facility] Stop: 12/02/18 22:12 Last Admin: 10/09/18 10:43 Dose: 125 mls/hr Cefepime HCl 2 gm/ Dextrose 100 mls @ 100 mls/hr IV Q12HR [facility] Stop: 12/07/18 20:59 Last Infusion: 10/09/18 09:24 Dose: Infused Vancomycin HCl 1.5 gm/ Sodium (Chloride) 500 mls @ 250 mls/hr IV Q36H [facility] Stop: 12/06/18 20:59 Insulin Aspart (Novolog Insulin Sliding Scale) [address] [facility]; Protocol Stop: 12/04/18 16:29 Last Admin: 10/09/18 12:36 Dose: Not Given Lactobacillus Rhamnosus (Culturelle 15b) [address] [facility] Stop: 12/07/18 08:59 Last Admin: 10/09/18 08:09 Dose: 1 each Lisinopril (Zestril) [address] [facility] Stop: 12/04/18 08:59 Last Admin: 10/09/18 08:10 Dose: 10 mg Magnesium Hydroxide (Milk Of Magnesia) 30 ml PO HS PRN PRN Reason: Constipation Stop: 12/03/18 14:39 Miscellaneous (Duloxetine Hcl [Cymbalta]) [address] [facility] Stop: 12/04/18 08:59 Miscellaneous (Vancomycin Iv Per Pharmacy) [address] [facility] Stop: 12/04/18 23:44 Miscellaneous (Probiotic Screen) 1 ea PRN PRN PRN Reason: PROTOCOL Stop: 12/06/18 15:29 Mupirocin (Bactroban Oint) [address] [facility] Stop: 10/10/18 09:01 Last Admin: 10/09/18 08:09 Dose: 1 appl Ondansetron HCl (Zofran) 4 mg IV Q6H PRN PRN Reason: Nausea / Vomiting Stop: 12/02/18 22:12 Pregabalin (Lyrica) [address] [facility] Stop: 12/03/18 16:59 Last Admin: 10/09/18 08:09 Dose: 150 mg General: alert, other (laceration in left eyebrow) HEENT: NC/AT Neck: Supple Lungs: CTAB Cardiovascular: RRR Abdomen: soft, non-tender Extremities: clear, edema Neurological: no change - Procedures Procedures: Procedures Procedure Code Date EXCISION OF RIGHT PELVIC BONE, OPEN APPROACH [id number] 10/03/18 EXCISION OF RIGHT UPPER FEMUR, OPEN APPROACH [id number] 07/25/18 INSPECTION OF LOWER INTESTINAL TRACT, ENDO [id number] 05/20/18 REPAIR ABDOMINAL WALL, OPEN APPROACH [id number] 07/25/18 Internal Medicine Assmt/Plan - Assessment Assessment: sepsis s/p fall laceration of left eyebrown head trauma decubitus ulcer infected elevated white cells with leukocytosis renal failure dm - Plan Plan: as per order sheet Nutritional Asmnt/Malnutr-PDOC - Dietary Evaluation Malnutrition Findings (Please click <Entered> for more info): Nutritional Asmnt/Malnutrition Start: 10/05/18 14: 30 Text: Status: Complete Freq: Protocol: Document 10/05/18 14:30 FADI (Rec: 10/05/18 15:14 [email or web address]) Nutritional Asmnt/Malnutrition Patient General Information Nutritional Screening High Risk Consult Diagnosis infected decubiti, leukocytosis Pertinent Medical Hx/Surgical Hx HTN, DM, asthma, COPD, bilateral BKA, depression, bilateral PNA Subjective Information Received diet consult for low christina. Pt was undergoing a medical procedure at time of visit; unable to speak with him. Nursing noted PO intake: 0-75% yesterday. Per nurse note, pt had excisional debridement for right hip decubitus ulcer. Per MD note, current internal medicine assessment includes sepsis and renal failure. BMI 24.9 adjusted by bi BKA. Current Diet Order/ Nutrition Support CCHO 45 gm, low Na, nonfat milk Pertinent Medications Vit C, Vit D3, colace, novolog , tobramycin, Nacl 0.45% Pertinent Labs 10/05: BUN 28, Cr 1.9, Ca 8.5, POC 76-102, Phos 4.2 10/04: BUN 28, Cr 2.1, Ca 9.1, POC 114-154 Nutritional Hx/Data Height 1.83 m Height (Calculated Centimeters) 182.9 Current Weight (lbs) 73.981 kg Weight (Calculated Kilograms) 74.0 Weight (Calculated Grams) 06075.9 [place] Body Weight 157 lb (adj for bilateral AKA) Body Mass Index (BMI) 22.1 Weight Status Approriate GI Symptoms GI Symptoms None Last BM none noted Difficult in: None Food Allergies Yes: pineapple, strawberry, mushroom Skin Integrity/Comment: bilateral BKA, 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 Problem Problem Altered nutrition related lab values Etiology dx of renal failure per MD note Signs/Symptoms: BUN 28, Cr 1.9, GFR 42.2 1. Problem Problem Increased nutrient needs Etiology wound healing, impaired skin integrity, sepsis Signs/Symptoms: ulcer/wound to buttocks and posterior thigh Malnutrition Alert Is there a minimum of two criteria No selected? Query Text:Check all the applicable criteria. A minimum of two criteria are recommended for diagnosis of either severe or non-severe malnutrition. Malnutrition Related to Morbid Obesity Malnutrition related to morbid obesity No Intervention/Recommendation Comments 1. Recommend to modify CCHO diet to 60 gm to meet pt's kcal needs 2. Continue with low Na diet w / nonfat milk as ordered, which will provide 100% of nutritional needs 3. Consider adding nutrition supplement if PO intake <75% 4. Monitor renal and glucose labs, skin integrity, wt, and PO intake 5. F/U as moderate risk in 3-5 days, 10/08-10/10 Expected Outcomes/Goals Expected Outcomes/Goals 1. PO intake to meet at least 75% of all meals 2. Wt stability, wounds to heal, and nutrition related labs to approach normal limits Reviewed by Rahel Minaya RD
--- NOTE | 2018-10-09 15:22 | General Progress Note ---
Subjective - Review of Systems Service Date: 10/09/18 Events since last encounter: more cooperative today wound redressed and Venelex applied - pt pulled out the drain 1 day post op concern for poor healing, for transfer to [place] Objective - Results Result Diagrams: 10/09/18 05:20 10/09/18 05:20 Recent Labs: Laboratory Last Values WBC 8.6 Th/cmm (4.8-10.8) 10/09/18 05:20 RBC 4.27 Mil/cmm (4.30-5.70) L 10/09/18 05:20 Hgb 12.1 gm/dL (12-16) 10/09/18 05:20 Hct 36.4 % (41.0-60) L 10/09/18 05:20 MCV 85.2 fl (80-99) 10/09/18 05:20 MCH 28.3 pg (26.0-30.0) 10/09/18 05:20 MCHC Differential 33.2 pg (28.0-36.0) 10/09/18 05:20 RDW 14.7 % (11.5-20.0) 10/09/18 05:20 Plt Count 227 Th/cmm (150-400) 10/09/18 05:20 MPV 8.5 fl 10/09/18 05:20 Add Manual Diff YES 10/05/18 05:15 Neutrophils % 67.3 % (40.0-80.0) 10/09/18 05:20 Band Neutrophils % 1 % (0-10) 10/05/18 05:15 Lymphocytes % 13.4 % (20.0-50.0) L 10/09/18 05:20 Monocytes % 12.2 % (2.0-10.0) H 10/09/18 05:20 Eosinophils % 6.1 % (0.0-5.0) H 10/09/18 05:20 Basophils % 1.0 % (0.0-2.0) 10/09/18 05:20 Neutrophils (Manual) 65 % (40-80) 10/05/18 05:15 Lymphocytes 20 % (20-50) 10/05/18 05:15 Monocytes 6 % (2-10) 10/05/18 05:15 Eosinophils 8 % (0-5) H 10/05/18 05:15 Basophils 0 % (0-3) 10/05/18 05:15 Eos Smear Source URINE 10/05/18 00:00 Eos Smear Total Cells NONE SEEN (NONE SEEN) 10/05/18 00:00 PT 10.0 SECONDS (9.5-11.5) 10/05/18 05:15 INR 0.99 (0.5-1.4) 10/05/18 05:15 PTT (Actin FS) 27.2 SECONDS (26.0-38.0) 10/05/18 05:15 Sodium 138 mEq/L (136-145) 10/09/18 05:20 Potassium 4.0 mEq/L (3.5-5.1) 10/09/18 05:20 Chloride 107 mEq/L (98-107) 10/09/18 05:20 Carbon Dioxide 23.6 mEq/L (21.0-31.0) 10/09/18 05:20 Anion Gap 11.4 (7.0-16.0) 10/09/18 05:20 BUN 19 mg/dL (7-25) 10/09/18 05:20 Creatinine 1.5 mg/dL (0.7-1.3) H 10/09/18 05:20 Est GFR ( Amer) > 60.0 ml/min (>90) 10/09/18 05:20 Est GFR (Non-Af Amer) 51.5 ml/min 10/09/18 05:20 BUN/Creatinine Ratio 12.7 10/09/18 05:20 Glucose 91 mg/dL (70-105) 10/09/18 05:20 POC Glucose 117 MG/DL (70 - 105) H 10/09/18 11:57 Calcium 8.4 mg/dL (8.6-10.3) L 10/09/18 05:20 Phosphorus 4.2 mg/dL (2.5-5.0) 10/05/18 05:15 Magnesium 1.9 mg/dL (1.9-2.7) 10/05/18 05:15 Total Bilirubin 0.3 mg/dL (0.3-1.0) 10/06/18 08:45 AST 17 U/L (13-39) 10/06/18 08:45 ALT 11 U/L (7-52) 10/06/18 08:45 Alkaline Phosphatase 68 U/L (34-104) 10/06/18 08:45 Troponin I 0.05 ng/mL (0.01-0.05) 10/03/18 18:50 Total Protein 6.8 gm/dL (6.0-8.3) 10/06/18 08:45 Albumin 3.7 gm/dL (4.2-5.5) L 10/06/18 08:45 Globulin 3.1 gm/dL 10/06/18 08:45 Albumin/Globulin Ratio 1.2 (1.0-1.8) 10/06/18 08:45 TSH 0.44 uIU/ml (0.34-5.60) 10/03/18 18:50 Urine Source CLEAN C 10/05/18 00:00 Urine Color YELLOW 10/05/18 00:00 Urine Clarity HAZY (CLEAR) 10/05/18 00:00 Urine pH 5.5 (4.6 - 8.0) 10/05/18 00:00 Ur Specific [employer] [place] 1.015 (1.005-1.030) 10/05/18 00:00 Urine Protein NEGATIVE mg/dL (NEGATIVE) 10/05/18 00:00 Urine Glucose (UA) NEGATIVE mg/dL (NEGATIVE) 10/05/18 00:00 Urine Ketones NEGATIVE mg/dL (NEGATIVE) 10/05/18 00:00 Urine Blood NEGATIVE (NEGATIVE) 10/05/18 00:00 Urine Nitrate NEGATIVE (NEGATIVE) 10/05/18 00:00 Urine Bilirubin NEGATIVE (NEGATIVE) 10/05/18 00:00 Urine Urobilinogen 0.2 E.U./dL (0.2 - 1.0) 10/05/18 00:00 Ur Leukocyte Esterase SMALL (NEGATIVE) H 10/05/18 00:00 Urine RBC 0-2 /hpf (0-5) H 10/05/18 00:00 Urine WBC 10-25 /hpf (0-5) H 10/05/18 00:00 Ur Epithelial Cells NONE SEEN /lpf (FEW) 10/05/18 00:00 Urine Bacteria MODERATE /hpf (NONE SEEN) H 10/05/18 00:00 Ur Random Sodium 64 mmol/L 10/05/18 00:00 Urine Creatinine 69.0 mg/dl (39.0-259.0) 10/05/18 00:00 Microalb/Creat Ratio 87.3 mg/g creat (0.0-30.0) H 10/05/18 00:00 Tobramycin Peak 6.2 ug/mL (4.0-10.0) 10/06/18 11:00 Tobramycin Trough 1.1 ug/mL (0.5-2.0) 10/09/18 07:55 Vancomycin Trough 21.1 ug/mL (5-10) H 10/08/18 21:40 Random Vancomycin 23.4 ug/mL (5.0-40.0) 10/07/18 05:50 - Physical Exam Vitals and I&O: Vital Signs Temp 97.7 F 10/09/18 11:39 Pulse 64 10/09/18 11:39 Resp 18 10/09/18 12:00 BP 147/73 10/09/18 11:39 Pulse Ox 99 10/09/18 11:39 Intake & Output 10/08/18 10/09/18 10/09/18 18:59 06:59 18:59 Intake Total 2500 1691.667 625 Balance 2500 1691.667 625 Weight (lbs) 73.028 kg 73.737 kg Intake: Intake, IV Amount 1000 491.667 625 Cefepime 2 gm In Dextrose 100 100 5% 100 ml @ 100 mls/hr IV Q12HR [facility] Rx#: [id number] Sodium Chloride 0.45% 1, 1000 391.667 525 000 ml @ 125 mls/hr IV . Q8H [facility] Rx#:[id number] Oral 1500 1200 Other: # Voids 1,400 3 Weight Source Bedscale Bedscale Active Medications: Current Medications Acetaminophen (Tylenol Extra Strength) 1,000 mg PO Q4HR PRN PRN Reason: Pain (Moderate) LEVEL 4-6 Stop: 12/02/18 22:52 Acetaminophen (Tylenol) 650 mg PO DAILY [facility] Stop: 12/03/18 08:59 Last Admin: 10/09/18 08:09 Dose: 650 mg Acetaminophen (Tylenol) 650 mg PO Q4H PRN PRN Reason: MILD PAIN OR TEMP >101 Amitriptyline HCl (Elavil) 50 mg PO HS [facility] Stop: 12/03/18 20:59 Last Admin: 10/08/18 21:09 Dose: 50 mg Ascorbic Acid (Vitamin C) 500 mg PO DAILY [facility] Stop: 12/04/18 08:59 Last Admin: 10/09/18 08:10 Dose: 500 mg Aspirin (Aspirin Chewable) 81 mg PO DAILY [facility] Stop: 12/04/18 08:59 Last Admin: 10/09/18 08:09 Dose: 81 mg Baclofen (Lioresal) 10 mg PO Q8H [facility] Stop: 12/03/18 15:59 Last Admin: 10/09/18 08:09 Dose: 10 mg [place] Oil/[place] Balsam/Trypsin (Venelex) 1 appl TP DAILY [facility] Stop: 12/04/18 16:59 Last Admin: 10/09/18 10:43 Dose: 1 appl Cholecalciferol (Vitamin D3) 1,000 iu PO DAILY [facility] Stop: 12/04/18 08:59 Last Admin: 10/09/18 08:09 Dose: 1,000 iu Docusate Sodium (Colace) 100 mg PO DAILY [facility] Stop: 12/04/18 08:59 Last Admin: 10/09/18 09:23 Dose: Not Given Duloxetine HCl (Cymbalta) 30 mg PO DAILY [facility] Stop: 12/07/18 08:59 Last Admin: 10/09/18 08:09 Dose: 30 mg Hydromorphone HCl (Dilaudid) 2 mg IVP Q3H PRN PRN Reason: SEVERE PAIN Stop: 12/04/18 14:18 Last Admin: 10/09/18 13:41 Dose: 2 mg Sodium Chloride (Nacl 0.45%) 1,000 mls @ 125 mls/hr IV .Q8H [facility] Stop: 12/02/18 22:12 Last Admin: 10/09/18 10:43 Dose: 125 mls/hr Cefepime HCl 2 gm/ Dextrose 100 mls @ 100 mls/hr IV Q12HR [facility] Stop: 12/07/18 20:59 Last Infusion: 10/09/18 09:24 Dose: Infused Vancomycin HCl 1.5 gm/ Sodium (Chloride) 500 mls @ 250 mls/hr IV Q36H [facility] Stop: 12/06/18 20:59 Insulin Aspart (Novolog Insulin Sliding Scale) 0 units SUBQ ACHS [facility]; Protocol Stop: 12/04/18 16:29 Last Admin: 10/09/18 12:36 Dose: Not Given Lactobacillus Rhamnosus (Culturelle 15b) 1 each PO DAILY [facility] Stop: 12/07/18 08:59 Last Admin: 10/09/18 08:09 Dose: 1 each Lisinopril (Zestril) 10 mg PO DAILY [facility] Stop: 12/04/18 08:59 Last Admin: 10/09/18 08:10 Dose: 10 mg Magnesium Hydroxide (Milk Of Magnesia) 30 ml PO HS PRN PRN Reason: Constipation Stop: 12/03/18 14:39 Miscellaneous (Duloxetine Hcl [Cymbalta]) 20 mg PO DAILY [facility] Stop: 12/04/18 08:59 Miscellaneous (Vancomycin Iv Per Pharmacy) 1 [facility] PRN [facility] Stop: 12/04/18 23:44 Miscellaneous (Probiotic Screen) 1 [facility] PRN PRN PRN Reason: PROTOCOL Stop: 12/06/18 15:29 Mupirocin (Bactroban Oint) 1 appl NS BID [facility] Stop: 10/10/18 09:01 Last Admin: 10/09/18 08:09 Dose: 1 appl Ondansetron HCl (Zofran) 4 mg IV Q6H PRN PRN Reason: Nausea / Vomiting Stop: 12/02/18 22:12 Pregabalin (Lyrica) 150 mg PO BID [facility] Stop: 12/03/18 16:59 Last Admin: 10/09/18 08:09 Dose: 150 mg General: Alert, Mild distress HEENT: Atraumatic, Mucous membr. moist/pink Neck: Supple, +2 carotid pulse wo bruit Cardiovascular: Regular rate, Normal S1, Normal S2 Lungs: Clear to auscultation Abdomen: Bowel sounds, Soft Extremities: no Edema Neurological: Sensation intact Skin: no Rash Psych/Mental Status: Mood NL - Procedures Procedures: Procedures Procedure Code Date EXCISION OF RIGHT PELVIC BONE, OPEN APPROACH [id number] 10/03/18 EXCISION OF RIGHT UPPER FEMUR, OPEN APPROACH [id number] 07/25/18 INSPECTION OF LOWER INTESTINAL TRACT, ENDO [id number] 05/20/18 REPAIR ABDOMINAL WALL, OPEN APPROACH [id number] 07/25/18 Assessment/Plan - Problem List Patient Problems: All Active Problems FALL WITH LACERATION TO LEFT FRONTAL (Acute) Nutritional Asmnt/Malnutr-PDOC - Dietary Evaluation Malnutrition Findings (Please click <Entered> for more info): Nutritional Asmnt/Malnutrition Start: 10/05/18 14: 30 Text: Status: Complete Freq: Protocol: Document 10/05/18 14:30 FADI (Rec: 10/05/18 15:14 FADI [id number]) Nutritional Asmnt/Malnutrition Patient General Information Nutritional Screening High Risk Consult Diagnosis infected decubiti, leukocytosis Pertinent Medical Hx/Surgical Hx HTN, DM, asthma, COPD, bilateral BKA, depression, bilateral PNA Subjective Information Received diet consult for low christina. Pt was undergoing a medical procedure at time of visit; unable to speak with him. Nursing noted PO intake: 0-75% yesterday. Per nurse note, pt had excisional debridement for right hip decubitus ulcer. Per MD note, current internal medicine assessment includes sepsis and renal failure. BMI 24.9 adjusted by bi BKA. Current Diet Order/ Nutrition Support CCHO 45 gm, low Na, nonfat milk Pertinent Medications Vit C, Vit D3, colace, novolog , tobramycin, Nacl 0.45% Pertinent Labs 10/05: BUN 28, Cr 1.9, Ca 8.5, POC 76-102, Phos 4.2 10/04: BUN 28, Cr 2.1, Ca 9.1, POC 114-154 Nutritional Hx/Data Height 1.83 m Height (Calculated Centimeters) 182.9 Current Weight (lbs) 73.981 kg Weight (Calculated Kilograms) 74.0 Weight (Calculated Grams) 55449.9 [place] Body Weight 157 lb (adj for bilateral AKA) Body Mass Index (BMI) 22.1 Weight Status Approriate GI Symptoms GI Symptoms None Last BM none noted Difficult in: None Food Allergies Yes: pineapple, strawberry, mushroom Skin Integrity/Comment: bilateral BKA, 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 Problem Problem Altered nutrition related lab values Etiology dx of renal failure per MD note Signs/Symptoms: BUN 28, Cr 1.9, GFR 42.2 1. Problem Problem Increased nutrient needs Etiology wound healing, impaired skin integrity, sepsis Signs/Symptoms: ulcer/wound to buttocks and posterior thigh Malnutrition Alert Is there a minimum of two criteria No selected? Query Text:Check all the applicable criteria. A minimum of two criteria are recommended for diagnosis of either severe or non-severe malnutrition. Malnutrition Related to Morbid Obesity Malnutrition related to morbid obesity No Intervention/Recommendation Comments 1. Recommend to modify [facility] diet to 60 gm to meet pt's kcal needs 2. Continue with low Na diet w / nonfat milk as ordered, which will provide 100% of nutritional needs 3. Consider adding nutrition supplement if PO intake <75% 4. Monitor renal and glucose labs, skin integrity, wt, and PO intake 5. F/U as moderate risk in 3-5 days, 10/08-10/10 Expected Outcomes/Goals Expected Outcomes/Goals 1. PO intake to meet at least 75% of all meals 2. Wt stability, wounds to heal, and nutrition related labs to approach normal limits Reviewed by Rahel Minaya RD
--- NOTE | 2018-10-09 17:27 | Progress Notes ---
DATE: 10/08/2018 NEUROLOGY PROGRESS NOTE SUBJECTIVE: I reviewed ____. The patient is lying in bed, awake, alert. Vision as before. The patient has bilateral leg amputation. No headache. PHYSICAL EXAMINATION: VITAL SIGNS: Temperature 98.4, blood pressure 138/82, and pulse is around 80. NECK: Supple, no bruits. CARDIOVASCULAR: Heart sounds S1, S2. RESPIRATORY: Lungs clear. NEUROLOGIC: The patient is awake. Sitting up, talking okay. Vision is very poor. Will lift both arms. Legs amputation. INVESTIGATIONS: CT scan head negative. ASSESSMENT: 1. Head injury. 2. Fall. 3. Abrasion, left eyebrow. 4. Bilateral leg amputation. 5. Chronic pain syndrome. PLAN: 1. Continue present treatment at the moment. 2. The patient's right gluteal wound, ID noted. JOB# [id number]
[2018-10-10] MEDS ORDERED: Vancomycin HCl 1.5 GM in Sodium Chloride 0.9% 500 ML IV SCH (09:00)
== END 2018-10-09 20:20 | DRG 853 ==
LOC: ER 18:14 → TELE 21:00
PROVIDERS: ADMIT Internal Medicine; ATTEND Internal Medicine
PROC: 0QB20ZZ Excision of Right Pelvic Bone, Open Approach (ICD-10-PCS; principal; 2018-10-05)
DX: A41.9 Sepsis, unspecified organism (principal); L89.214 Pressure ulcer of right hip, stage 4; L89.223 Pressure ulcer of left hip, stage 3; N17.9 Acute kidney failure, unspecified; N39.0 Urinary tract infection, site not specified; F20.0 Paranoid schizophrenia; E11.40 Type 2 diabetes mellitus with diabetic neuropathy, unspecified; J44.9 Chronic obstructive pulmonary disease, unspecified; E78.5 Hyperlipidemia, unspecified; N14.1 Nephropathy induced by other drugs, medicaments and biological substances; T36.5X5A Adverse effect of aminoglycosides, initial encounter; Z93.3 Colostomy status; N18.2 Chronic kidney disease, stage 2 (mild); S01.112A Laceration without foreign body of left eyelid and periocular area, initial encounter; W18.30XA Fall on same level, unspecified, initial encounter; F41.8 Other specified anxiety disorders; T36.8X5A Adverse effect of other systemic antibiotics, initial encounter; G89.4 Chronic pain syndrome; E11.22 Type 2 diabetes mellitus with diabetic chronic kidney disease; I12.9 Hypertensive chronic kidney disease with stage 1 through stage 4 chronic kidney disease, or unspecified chronic kidney disease; N14.2 Nephropathy induced by unspecified drug, medicament or biological substance; Y93.89 Activity, other specified; Y92.89 Other specified places as the place of occurrence of the external cause; Y99.8 Other external cause status; Z88.8 Allergy status to other drugs, medicaments and biological substances; Z79.4 Long term (current) use of insulin; Z22.322 Carrier or suspected carrier of Methicillin resistant Staphylococcus aureus; Z91.018 Allergy to other foods; Z89.612 Acquired absence of left leg above knee; Z89.611 Acquired absence of right leg above knee
CPT/HCPCS: 36415-UA; 70450-TC; 71045-TC; 76770-TC; 80048-TC; 80053-TC; 80200-TC; 80202-TC; 81001-TC; 81015-TC; 82043-90; 82570-TC; 82948-90; 83735-TC; 84100-TC; 84300-TC; 84443-TC; 84484-TC; 85007-TC; 85025-TC; 85610-TC; 87070-90; 87086-90; 93005; 96372; J0692; J0696; J1170; J1815; J1885; J2405; J2704; J2710; J3010; J3260; J3370; J7030; J7040; V2790; X6258; Z7610

== ENCOUNTER 2019-02-22 17:24 | Inpatient (IN) | payer MEDICARE, MEDICAID ==
[2019-02-22] MEDS ORDERED: HYDROmorphone 1 mg/mL 1mL Syr IM STA (17:43)
[2019-02-22] MEDS ORDERED: HYDROmorphone 1 mg/mL 1mL Syr ONE (17:47)
--- NOTE | 2019-02-22 18:02 | ED Physician Chart ---
ED Chief Complaint/HPI - Patient Information Date Seen:: 02/22/19 Time Seen:: 17:40 Chief Complaint:: hernia pain preexisting Allergies:: Allergies Allergy/AdvReac Type Severity Reaction Status Date / Time permethrin [From Elimite] Allergy Verified 08/24/18 13:38 pineapple Allergy Verified 10/03/18 18:20 mushroom AdvReac Verified 08/24/18 13:38 strawberry AdvReac Verified 08/24/18 13:38 Vitals:: Vital Signs - 8 hr 02/22/19 17:35 Temp 98.8 F HR 93 RR 22 BP 148/88 O2 Sat % 97 Review:: Nurse's Note Reviewed, Transfer documents Reviewed (known ) <Aston Mcgarry - Last Filed: 02/22/19 17:48> - Patient Information Allergies:: Allergies Allergy/AdvReac Type Severity Reaction Status Date / Time permethrin [From Elimite] Allergy Verified 08/24/18 13:38 pineapple Allergy Verified 10/03/18 18:20 mushroom AdvReac Verified 08/24/18 13:38 strawberry AdvReac Verified 08/24/18 13:38 Vitals:: Vital Signs - 8 hr 02/22/19 17:35 Temp 98.8 F HR 93 RR 22 BP 148/88 O2 Sat % 97 <Laly Perez - Last Filed: 02/22/19 19:45> ED Review of Systems - Review of Systems GI: Nausea, Pain <Aston Mcgarry - Last Filed: 02/22/19 17:48> ED Past Medical History - Past Medical History Past Medical History: DM, Dyslipidemia, Other (PRESSURE ULCER RT HIP) Surgical History: other (BILATERAL AKA,COLOSTOMY HERNIA FROM BUTTOCKS TO HIP ) Psychiatricy History: Depression, Schizophrenia <Laly Perez - Last Filed: 02/22/19 19:45> Family Medical History - Family Member Mother History Unknown: Yes Ethnicity: Non- Living Status: Unknown Hx Family COPD: Yes <Aston Mcgarry - Last Filed: 02/22/19 17:48> ED Physical Exam - Physical Examination General/Constitutional: Well-developed, well-nourished, Alert Head: Atraumatic Eyes: Lids, conjuctiva normal Other Skin comments:: LARGE SACRAL DECUBITI Neck: Nontender Respiratory: Nl effort/Exclusion Cardio Vascular: RRR GI: No tenderness/rebounding/guarding Other Extremities comments:: BILATERAL AKA Neuro/Psych: Alert/oriented <Laly Perez - Last Filed: 02/22/19 19:45> ED Labs/Radiology/EKG Results - Lab Results Results: Laboratory Tests 02/22/19 02/22/19 17:50 17:50 WBC 13.1 H RBC 5.63 Hgb 15.5 Hct 47.3 MCV 84.1 MCH 27.5 MCHC Differential 32.7 RDW 15.4 Plt Count 281 MPV 7.7 Neutrophils % 74.2 Lymphocytes % 13.5 L Monocytes % 8.4 Eosinophils % 2.6 Basophils % 1.3 Sodium 137 Potassium 4.2 Chloride 102 Carbon Dioxide 26.3 Anion Gap 12.9 BUN 19 Creatinine 0.8 Est GFR ( Amer) > 60.0 Est GFR (Non-Af Amer) > 60.0 BUN/Creatinine Ratio 23.8 Glucose 117 H Calcium 9.8 Total Bilirubin 0.3 Direct Bilirubin 0.00 AST 13 ALT 13 Alkaline Phosphatase 85 Total Protein 7.3 Albumin 4.0 L Globulin 3.3 Albumin/Globulin Ratio 1.2 Amylase 39 Lipase 21 <Laly Perez - Last Filed: 02/22/19 19:45> ED Assessment - Assessment General Assessment: COLOSTOMY HERNIA AKA <Laly Perez - Last Filed: 02/22/19 19:45> ED Septic Shock - <6hrs of presentation: Vital Signs: Vital Signs - 8 hr 02/22/19 17:35 Temp 98.8 F HR 93 RR 22 BP 148/88 O2 Sat % 97 <Aston Mcgarry - Last Filed: 02/22/19 17:48> - . Is Septic Shock (SBP<90, OR Lactate>4 mmol\L) present?: No - <6hrs of presentation: Vital Signs: Vital Signs - 8 hr 02/22/19 17:35 Temp 98.8 F HR 93 RR 22 BP 148/88 O2 Sat % 97 <Laly Perez - Last Filed: 02/22/19 19:45> ED Reassessment (Disposition) - Reassessment Reassessment:: COLOSTOMY HERNIA DECUBITI - Diagnosis Diagnosis:: ABD PAIN HERNIA - Patient Disposition Discharge/Transfer:: Acute Care w/in this hosp Admitted to:: Med/Surg Condition at Disposition:: Stable <Laly Perez - Last Filed: 02/22/19 19:45>
[2019-02-22 18:07] LABS: % BASOPHILS 1.3 % (0.0-2.0); % EOSINOPHILS 2.6 % (0.0-5.0); % LYMPHOCYTES 13.5 % (20.0-50.0); % MONOCYTES 8.4 % (2.0-10.0); % NEUTROPHILS 74.2 % (40.0-80.0); BASOPHILE ABSOLUTE 0.2 Th/cumm (0-0.2); EOSINOPHILE ABSOLUTE 0.3 Th/cmm (0.1-0.4); HEMATOCRIT 47.3 % (41.0-60); HEMOGLOBIN 15.5 gm/dL (12-16); LYMPHOCYTE ABSOLUTE 1.8 Th/cmm (1.5-3.0); MEAN CELL VOLUME 84.1 fl (80-99); MEAN CORPUSCULAR HEMOGLOBIN 27.5 pg (26.0-30.0); MEAN CORPUSCULAR HGB CONC 32.7 pg (28.0-36.0); MEAN PLATELET VOLUME 7.7 fl; MONOCYTE ABSOLUTE 1.1 Th/cmm (0.3-1.0); NEUTROPHILE ABSOLUTE 9.7 Th/cmm (1.8-8.0); PLATELET COUNT 281 Th/cmm (150-400); RED BLOOD COUNT 5.63 Mil/cmm (4.30-5.70); RED CELL DISTRIBUTION WIDTH 15.4 % (11.5-20.0); WHITE BLOOD COUNT 13.1 Th/cmm (4.8-10.8)
[2019-02-22 18:17] LABS: ALB/GLOB RATIO 1.2 (1.0-1.8); ALKALINE PHOSPHATASE 85 U/L (34-104); AMYLASE SERUM 39 U/L (29-103); ANION GAP 12.9 (7.0-16.0); BILIRUBIN,TOTAL 0.3 mg/dL (0.3-1.0); BUN - UREA NITROGEN 19 mg/dL (7-25); CALCIUM SERUM 9.8 mg/dL (8.6-10.3); CARBON DIOXIDE 26.3 mEq/L (21.0-31.0); CHLORIDE 102 mEq/L (98-107); CREATININE - SERUM 0.8 mg/dL (0.7-1.3); GFR AFRICAN-AMERICAN > 60.0 ml/min (>90); GFR NON AFRICAN-AMERICAN > 60.0 ml/min; GLUCOSE 117 mg/dL (70-105); LIPASE 21 U/L (11-82); POTASSIUM SERUM 4.2 mEq/L (3.5-5.1); SGOT 13 U/L (13-39); SGPT/ALT 13 U/L (7-52); SODIUM SERUM 137 mEq/L (136-145); TOTAL PROTEIN,SERUM 7.3 gm/dL (6.0-8.3)
[2019-02-22] MEDS ORDERED: HYDROmorphone 2 mg/mL 1mL Vial IVP PRN ×2 (21:28→21:46)
[2019-02-22] MEDS ORDERED: INSULIN HUMAN REGULAR 100 UNITS/ML UNIT SUBQ ONE (21:46)
[2019-02-22] MEDS: cefTRIAXone 1 GM in Sodium Chloride 0.9% 50 ML IV SCH ×2 (22:12→22:37)
[2019-02-22] MEDS: D5-0.45NS 1,000 ML IV SCH (22:38)
[2019-02-22] MEDS ORDERED: Pneumococcal Vaccine 0.5 mL Vial IM ONE (23:23)
[2019-02-23] MEDS: HYDROmorphone 2 mg/mL 1mL Vial IVP PRN ×5 (03:06→20:26)
[2019-02-23 06:24] LABS: % BASOPHILS 0.4 % (0.0-2.0); % EOSINOPHILS 2.9 % (0.0-5.0); % MONOCYTES 11.7 % (2.0-10.0); EOSINOPHILE ABSOLUTE 0.3 Th/cmm (0.1-0.4); HEMATOCRIT 45.6 % (41.0-60); HEMOGLOBIN 14.7 gm/dL (12-16); LYMPHOCYTE ABSOLUTE 2.1 Th/cmm (1.5-3.0); MEAN CELL VOLUME 84.3 fl (80-99); MEAN CORPUSCULAR HEMOGLOBIN 27.2 pg (26.0-30.0); MEAN CORPUSCULAR HGB CONC 32.3 pg (28.0-36.0); MEAN PLATELET VOLUME 8.2 fl; MONOCYTE ABSOLUTE 1.1 Th/cmm (0.3-1.0); NEUTROPHILE ABSOLUTE 5.6 Th/cmm (1.8-8.0); PLATELET COUNT 271 Th/cmm (150-400); RED BLOOD COUNT 5.41 Mil/cmm (4.30-5.70); WHITE BLOOD COUNT 9.1 Th/cmm (4.8-10.8)
[2019-02-23 06:26] LABS: INR 0.9 (0.5-1.4); PROTHROMBIN TIME (TEST) 9.4 SECONDS (9.5-11.5)
[2019-02-23 06:34] LABS: ANION GAP 11.3 (7.0-16.0); BUN - UREA NITROGEN 16 mg/dL (7-25); CALCIUM SERUM 9.3 mg/dL (8.6-10.3); CARBON DIOXIDE 26.6 mEq/L (21.0-31.0); CHLORIDE 103 mEq/L (98-107); CREATININE - SERUM 0.7 mg/dL (0.7-1.3); GFR AFRICAN-AMERICAN > 60.0 ml/min (>90); GFR NON AFRICAN-AMERICAN > 60.0 ml/min; GLUCOSE 147 mg/dL (70-105); POTASSIUM SERUM 3.9 mEq/L (3.5-5.1); SODIUM SERUM 137 mEq/L (136-145)
[2019-02-23] MEDS ORDERED: INSULIN HUMAN REGULAR 100 UNITS/ML UNIT SUBQ SCH (07:30)
--- NOTE | 2019-02-23 07:56 | Diagnostic Imaging Report ---
Portable chest x-ray Time: 1810 History: Pneumonia Allowing for portable technique the heart size is normal. No focal pulmonary parenchymal processes. No hilar or mediastinal abnormalities. Impression: No acute abnormalities.
--- NOTE | 2019-02-23 08:10 | Diagnostic Imaging Report ---
Exam: CT examination abdomen pelvis. HISTORY: Abdominal distention Total DLP equals 583 CTDI equals 11.4 Findings: Multiple contiguous thin section of the abdomen pelvis obtained from lower thorax to pubic symphysis without the administration of oral intravenous contrast material, the study correlated with the prior exam of 08/25/2018 The study demonstrates normal aeration of lung parenchyma the bases. There is evidence of significant distention of stomach with content and air. Fecal impaction is noted. Diffuse atherosclerotic calcification of abdominal aorta appreciated. Nonobstructing renal stones Bilateral renal cysts. The visualized pancreas is intact. The gallbladder is contracted. There is evidence for lower abdomen midline hernia containing small and large bowel loops question of partial incarceration. A second the lower left abdominal hernia extending into the colostomy opening. The hernia contains predominantly small bowel loops. The urinary bladder is distended. There is no evidence of diverticular disease of diverticulitis. Bony structures demonstrate no evidence for lytic or blastic lesions. IMPRESSION: Significant distention of stomach with content and air Fecal impaction Atherosclerotic changes throughout the intra-abdominal vasculature Nephrolithiasis, bilateral renal cysts, no evidence for hydronephrosis Midline abdominal hernia lower abdomen containing colon and small bowel loops question of partial incarceration, clinical correlation is recommended. Another hernia in the left lower quadrant into the colostomy opening predominantly small bowel loops without strangulation. Distended urinary bladder.
[2019-02-23] MEDS: INSULIN LISPRO SLIDING SCALE 100 UNITS/ML UNIT SUBQ SCH ×3 (11:31→20:30)
[2019-02-23] MEDS ORDERED: Hydrogel 3 oz Tube TP PRN (16:55)
[2019-02-23] MEDS ORDERED: HYDROmorphone 1 mg/mL 1mL Syr IM PRN (16:55)
[2019-02-23] MEDS ORDERED: Acetaminophen 500 MG TAB PO PRN (16:55)
[2019-02-23] MEDS ORDERED: Albuterol Nebulizer 2.5mg/3mL HHN PRN (16:55)
[2019-02-23] MEDS ORDERED: Magnesium Hydroxide (MOM) 30 mL UDC PO PRN (16:55)
[2019-02-23] MEDS: Venelex 60gm Tube TP SCH (17:22)
--- NOTE | 2019-02-23 17:36 | History & Physical ---
ADMIT DATE: 02/23/2019 CHIEF COMPLAINT: Abdominal pain. HISTORY OF PRESENT ILLNESS: This is a 58-year-old male who is a custodial resident, admitted to the med/surg unit due to 1-day history of hernia pain. No reports of any fevers at the custodial. For further management, the patient is admitted. PAST MEDICAL HISTORY: Type 2 diabetes, dyslipidemia and hip ulcer. PAST SURGICAL HISTORY: Bilateral AKA and colostomy. SOCIAL HISTORY: The patient is a custodial resident. ALLERGIES: PERMETHRIN, PINEAPPLE, MUSHROOM and STRAWBERRY. REVIEW OF SYSTEMS: GENERAL: Denies any fever or chills. CARDIOVASCULAR: No chest pain. RESPIRATORY: No shortness of breath. GASTROINTESTINAL: Denies nausea, vomiting, abdominal pain. GENITOURINARY: Denies increased frequency or dysuria. NEUROLOGIC: No headache, seizure or syncope. All systems are reviewed and negative. PHYSICAL EXAMINATION: GENRAL: The patient is well-developed, well-nourished, in no apparent distress. VITAL SIGNS: Temperature 97.0, heart rate 88, blood pressure 169/98, respiration 18 and O2 98%. HEENT: Head; normocephalic and atraumatic. NECK: Supple. No mass. LUNGS: Clear bilaterally. HEART: Regular rate and rhythm. ABDOMEN: Mildly distended. Colostomy in place. SKIN: The patient is noted with a large sacral ulcer. LABORATORY DATA: WBC 9.1, H and H 14.7 and 45.6 and platelet of 271. Sodium 137, potassium 3.9, chloride 103, BUN 16 and creatinine 0.7. DIAGNOSTIC DATA: The patient had a CT of the abdomen and pelvis, impression is significant distention of stomach, would contain air; fecal impaction; atherosclerotic changes throughout the intraabdominal vasculature; nephrolithiasis; bilateral renal cysts; no evidence for hydronephrosis; midline abdominal hernia; lower abdomen containing colon and small bowel loops, question of partial incarceration and another hernia in the left quadrant in the colostomy opening predominantly, small loops without strangulation. The patient also had a chest x-ray done, impression is no acute abnormalities. ASSESSMENT: Abdominal pain secondary to possible partial incarceration of small bowel loops, bilateral above-knee amputation, fecal impaction, leukocytosis, mild protein-calorie malnutrition, diabetes, dyslipidemia and right hip pressure ulcer. PLAN: The patient to be admitted to the med/surg unit. We will treat the patient with IV antibiotics of Rocephin. We will get a wound culture. Also, surgical consultation as well. Pain management. Accu-Chek a.c. and at bedtime. We will continue to monitor this patient. JOB# [id number]
[2019-02-23] MEDS: D5-0.45NS 1,000 ML IV SCH (20:28)
[2019-02-23] MEDS: cefTRIAXone 1 GM in Sodium Chloride 0.9% 50 ML IV SCH (21:13)
[2019-02-24] MEDS: HYDROmorphone 2 mg/mL 1mL Vial IVP PRN ×6 (00:17→20:16)
[2019-02-24 06:42] LABS: % LYMPHOCYTES 13.8 % (20.0-50.0); % MONOCYTES 10.5 % (2.0-10.0); % NEUTROPHILS 73.7 % (40.0-80.0); EOSINOPHILE ABSOLUTE 0.2 Th/cmm (0.1-0.4); HEMATOCRIT 47.2 % (41.0-60); HEMOGLOBIN 15.9 gm/dL (12-16); LYMPHOCYTE ABSOLUTE 1.6 Th/cmm (1.5-3.0); MEAN CELL VOLUME 83.5 fl (80-99); MEAN CORPUSCULAR HEMOGLOBIN 28.2 pg (26.0-30.0); MEAN CORPUSCULAR HGB CONC 33.8 pg (28.0-36.0); MEAN PLATELET VOLUME 8.4 fl; MONOCYTE ABSOLUTE 1.2 Th/cmm (0.3-1.0); NEUTROPHILE ABSOLUTE 8.7 Th/cmm (1.8-8.0); PLATELET COUNT 277 Th/cmm (150-400); RED BLOOD COUNT 5.65 Mil/cmm (4.30-5.70); RED CELL DISTRIBUTION WIDTH 15.7 % (11.5-20.0); WHITE BLOOD COUNT 11.7 Th/cmm (4.8-10.8)
[2019-02-24] MEDS: INSULIN LISPRO SLIDING SCALE 100 UNITS/ML UNIT SUBQ SCH ×5 (06:42→20:27)
[2019-02-24 06:54] LABS: ANION GAP 12.1 (7.0-16.0); BUN - UREA NITROGEN 11 mg/dL (7-25); CALCIUM SERUM 9.7 mg/dL (8.6-10.3); CHLORIDE 103 mEq/L (98-107); CREATININE - SERUM 0.7 mg/dL (0.7-1.3); GFR AFRICAN-AMERICAN > 60.0 ml/min (>90); GFR NON AFRICAN-AMERICAN > 60.0 ml/min; GLUCOSE 131 mg/dL (70-105); POTASSIUM SERUM 4.1 mEq/L (3.5-5.1); SODIUM SERUM 137 mEq/L (136-145)
[2019-02-24] MEDS ORDERED: Diatrizoate Meglumine/Diatri 30 mL Sol PO ONE (07:42)
[2019-02-24] MEDS ORDERED: Non-Formulary Item 1 EA (Amino Acids/Protein Hydrolys [Pro-Stat Sugar Free Liquid] 30 ML) PO SCH (09:00)
[2019-02-24] MEDS ORDERED: Non-Formulary Item 1 EA (Duloxetine Hcl [Cymbalta] 20 MG) PO SCH (09:00)
--- NOTE | 2019-02-24 09:03 | Internal Medicine Prog Note ---
Internal Medicine Subjective - Subjective Service Date: 02/24/19 Patient seen and examined:: chart reviewed Patient is:: awake, in bed, denies any new complaints Internal Medicine Objective - Results Result Diagrams: 02/24/19 05:50 02/24/19 05:50 Recent Labs: Laboratory Last Values WBC 11.7 Th/cmm (4.8-10.8) H 02/24/19 05:50 RBC 5.65 Mil/cmm (4.30-5.70) 02/24/19 05:50 Hgb 15.9 gm/dL (12-16) 02/24/19 05:50 Hct 47.2 % (41.0-60) 02/24/19 05:50 MCV 83.5 fl (80-99) 02/24/19 05:50 MCH 28.2 pg (26.0-30.0) 02/24/19 05:50 MCHC Differential 33.8 pg (28.0-36.0) 02/24/19 05:50 RDW 15.7 % (11.5-20.0) 02/24/19 05:50 Plt Count 277 Th/cmm (150-400) 02/24/19 05:50 MPV 8.4 fl 02/24/19 05:50 Neutrophils % 73.7 % (40.0-80.0) 02/24/19 05:50 Lymphocytes % 13.8 % (20.0-50.0) L 02/24/19 05:50 Monocytes % 10.5 % (2.0-10.0) H 02/24/19 05:50 Eosinophils % 2.0 % (0.0-5.0) 02/24/19 05:50 Basophils % 0.0 % (0.0-2.0) 02/24/19 05:50 PT 9.4 SECONDS (9.5-11.5) L 02/23/19 05:45 INR 0.90 (0.5-1.4) 02/23/19 05:45 PTT (Actin FS) 29.2 SECONDS (26.0-38.0) 02/23/19 05:45 Sodium 137 mEq/L (136-145) 02/24/19 05:50 Potassium 4.1 mEq/L (3.5-5.1) 02/24/19 05:50 Chloride 103 mEq/L (98-107) 02/24/19 05:50 Carbon Dioxide 26.0 mEq/L (21.0-31.0) 02/24/19 05:50 Anion Gap 12.1 (7.0-16.0) 02/24/19 05:50 BUN 11 mg/dL (7-25) 02/24/19 05:50 Creatinine 0.7 mg/dL (0.7-1.3) 02/24/19 05:50 Est GFR ( Amer) > 60.0 ml/min (>90) 02/24/19 05:50 Est GFR (Non-Af Amer) > 60.0 ml/min 02/24/19 05:50 BUN/Creatinine Ratio 15.7 02/24/19 05:50 Glucose 131 mg/dL (70-105) H 02/24/19 05:50 POC Glucose 128 MG/DL (70 - 105) H 02/24/19 06:41 Calcium 9.7 mg/dL (8.6-10.3) 02/24/19 05:50 Total Bilirubin 0.3 mg/dL (0.3-1.0) 02/22/19 17:50 Direct Bilirubin 0.00 mg/dL (0.0-0.2) 02/22/19 17:50 AST 13 U/L (13-39) 02/22/19 17:50 ALT 13 U/L (7-52) 02/22/19 17:50 Alkaline Phosphatase 85 U/L (34-104) 02/22/19 17:50 Total Protein 7.3 gm/dL (6.0-8.3) 02/22/19 17:50 Albumin 4.0 gm/dL (4.2-5.5) L 02/22/19 17:50 Globulin 3.3 gm/dL 02/22/19 17:50 Albumin/Globulin Ratio 1.2 (1.0-1.8) 02/22/19 17:50 Amylase 39 U/L (29-103) 02/22/19 17:50 Lipase 21 U/L (11-82) 02/22/19 17:50 - Physical Exam Vitals and I&O: Vital Signs Temp 96.6 F 02/24/19 08:00 Pulse 85 02/24/19 08:00 Resp 18 02/24/19 08:00 BP 154/86 02/24/19 08:00 Pulse Ox 96 02/24/19 08:00 Intake & Output 02/23/19 02/24/19 02/24/19 18:59 06:59 18:59 Intake Total 1900 150 240 Output Total 350 900 Balance 1900 -200 -660 Weight (lbs) 61.19 kg 60.781 kg 60.781 kg Intake: Intake, IV Amount 1000 50 D5-0.45NS 1,000 ml @ 50 1000 mls/hr IV .Q20H [facility] Rx#: [id number] cefTRIAXone 1 gm In 50 Sodium Chloride 0.9% 50 ml @ 100 mls/hr IV Q24HR [facility] Rx#:[id number] Oral 900 100 240 Output: Urine 350 800 Stool 100 Other: # Voids 3 # Bowel Movements 0 Stool Characteristics Soft Brown Weight Source Bedscale Bedscale Bedscale Active Medications: Current Medications Acetaminophen (Tylenol Extra Strength) 1,000 mg PO Q4HR PRN PRN Reason: Pain (Moderate) Stop: 04/24/19 16:54 Acetaminophen (Tylenol) 650 mg PO DAILY [facility] Stop: 04/25/19 08:59 Albuterol Sulfate (Albuterol 2.5mg/3ml Neb Ud) 2.5 mg HHN Q6H PRN PRN Reason: Shortness of Breath Amitriptyline HCl (Elavil) 50 mg PO HS [facility] Stop: 04/24/19 20:59 Last Admin: 02/23/19 20:26 Dose: Not Given Ascorbic Acid (Vitamin C) 500 mg PO DAILY [facility] Stop: 04/25/19 08:59 Aspirin (Aspirin Chewable) 81 mg PO DAILY [facility] Stop: 04/25/19 08:59 Baclofen (Lioresal) 10 mg PO Q8H [facility] Stop: 04/24/19 16:59 Last Admin: 02/24/19 00:16 Dose: 10 mg Bandage/Support Products (Hydrogel) 1 appl TP PRN PRN PRN Reason: PRESSURE WOUND CLEANSE Stop: 04/24/19 16:54 Budesonide (Pulmicort) 0.5 mg HHN BIDRT [facility] Stop: 04/25/19 18:59 [place] Oil/Hungarian Balsam/Trypsin (Venelex) 1 appl TP DAILY [facility] Stop: 04/24/19 16:29 Last Admin: 02/23/19 17:22 Dose: Not Given Cholecalciferol (Vitamin D3) 1,000 iu PO DAILY [facility] Stop: 04/25/19 08:59 Docusate Sodium (Colace) 100 mg PO DAILY [facility] Stop: 04/25/19 08:59 Hydromorphone HCl (Dilaudid) 2 mg IVP Q4HR PRN PRN Reason: Abdominal Pain Stop: 04/23/19 21:45 Last Admin: 02/24/19 08:20 Dose: 2 mg Hydromorphone HCl (Dilaudid) 1 mg IM Q6H PRN PRN Reason: Severe Pain Stop: 04/24/19 16:54 Ceftriaxone Sodium 1 gm/ (Sodium Chloride) 50 mls @ 100 mls/hr IV Q24HR [facility] Stop: 04/23/19 21:29 Last Infusion: 02/23/19 21:35 Dose: Infused Dextrose/Sodium Chloride (D5-0.45ns) 1,000 mls @ 50 mls/hr IV .Q20H [facility] Stop: 04/23/19 21:59 Last Admin: 02/23/19 20:28 Dose: 50 mls/hr Insulin Human Lispro (Humalog Insulin Sliding Scale) 0 units SUBQ ACHS [facility]; Protocol Stop: 04/24/19 07:29 Last Admin: 02/24/19 06:42 Dose: Not Given Lisinopril (Zestril) 10 mg PO DAILY [facility] Stop: 04/25/19 08:59 Magnesium Hydroxide (Milk Of Magnesia) 30 ml PO HS PRN PRN Reason: Constipation Stop: 04/24/19 16:54 Miscellaneous (Amino Acids/Protein Hydrolys [Pro-Stat Sugar Free Liquid]) 30 ml PO DAILY [facility] Stop: 04/25/19 08:59 Miscellaneous (Budesonide/Formoterol Fumarate [Symbicort 160-4.5 Mcg Inhaler]) 1 aer IH BID [facility] Stop: 04/24/19 16:59 Last Admin: 02/23/19 17:50 Dose: Not Given Miscellaneous (Duloxetine Hcl [Cymbalta]) 20 mg PO DAILY [facility] Stop: 04/25/19 08:59 Pregabalin (Lyrica) 150 mg PO BID [facility] Stop: 04/24/19 16:59 Last Admin: 02/23/19 18:41 Dose: 150 mg - Procedures Procedures: Procedures Procedure Code Date EXCISION OF RIGHT PELVIC BONE, OPEN APPROACH [id number] 10/03/18 EXCISION OF RIGHT UPPER FEMUR, OPEN APPROACH [id number] 07/25/18 INSPECTION OF LOWER INTESTINAL TRACT, ENDO [id number] 05/20/18 REPAIR ABDOMINAL WALL, OPEN APPROACH [id number] 07/25/18
[2019-02-24] MEDS: Aspirin 81mg Chewable Tab PO SCH (09:58)
[2019-02-24] MEDS: Venelex 60gm Tube TP SCH (09:58)
[2019-02-24] MEDS: Multivitamin w/ Minerals Tab PO SCH (09:59)
--- NOTE | 2019-02-24 12:44 | Diagnostic Imaging Report ---
Small bowel follow-through HISTORY: Ventral hernia, obstruction Water-soluble contrast was administered orally. The exam demonstrates free flow of contrast from the stomach into the small bowel. Normal small bowel caliber and mucosal flow pattern. Normal transit to the colon. No definite focal abnormalities. No evidence of any extrinsic masses. IMPRESSION: Essentially negative examination. No evidence of obstruction.
[2019-02-24] MEDS: cefTRIAXone 1 GM in Sodium Chloride 0.9% 50 ML IV SCH (20:35)
[2019-02-25] MEDS: HYDROmorphone 2 mg/mL 1mL Vial IVP PRN ×6 (00:06→20:26)
[2019-02-25 07:02] LABS: BASOPHILE ABSOLUTE 0.1 Th/cumm (0-0.2); EOSINOPHILE ABSOLUTE 0.2 Th/cmm (0.1-0.4); NEUTROPHILE ABSOLUTE 7.5 Th/cmm (1.8-8.0); WHITE BLOOD COUNT 10.3 Th/cmm (4.8-10.8)
[2019-02-25 07:10] LABS: INR 0.96 (0.5-1.4)
[2019-02-25 07:13] LABS: ALB/GLOB RATIO 1.2 (1.0-1.8); ALBUMIN 3.9 gm/dL (4.2-5.5); ALKALINE PHOSPHATASE 92 U/L (34-104); ANION GAP 12.7 (7.0-16.0); BILIRUBIN,TOTAL 0.5 mg/dL (0.3-1.0); BUN - UREA NITROGEN 16 mg/dL (7-25); CALCIUM SERUM 9.6 mg/dL (8.6-10.3); CARBON DIOXIDE 24.9 mEq/L (21.0-31.0); CHLORIDE 104 mEq/L (98-107); CREATININE - SERUM 0.7 mg/dL (0.7-1.3); GFR AFRICAN-AMERICAN > 60.0 ml/min (>90); GFR NON AFRICAN-AMERICAN > 60.0 ml/min; GLUCOSE 137 mg/dL (70-105); POTASSIUM SERUM 3.6 mEq/L (3.5-5.1); SGOT 17 U/L (13-39); SGPT/ALT 15 U/L (7-52); SODIUM SERUM 138 mEq/L (136-145); TOTAL PROTEIN,SERUM 7.2 gm/dL (6.0-8.3)
[2019-02-25 07:15] LABS: % BASOPHILS 0.5 % (0.0-2.0); % LYMPHOCYTES 13.1 % (20.0-50.0); % MONOCYTES 11.2 % (2.0-10.0); % NEUTROPHILS 73.2 % (40.0-80.0); HEMATOCRIT 46.6 % (41.0-60); HEMOGLOBIN 15.8 gm/dL (12-16); LYMPHOCYTE ABSOLUTE 1.3 Th/cmm (1.5-3.0); MEAN CELL VOLUME 83.3 fl (80-99); MEAN CORPUSCULAR HEMOGLOBIN 28.2 pg (26.0-30.0); MEAN CORPUSCULAR HGB CONC 33.8 pg (28.0-36.0); MEAN PLATELET VOLUME 8.5 fl; MONOCYTE ABSOLUTE 1.2 Th/cmm (0.3-1.0); PLATELET COUNT 258 Th/cmm (150-400); RED BLOOD COUNT 5.59 Mil/cmm (4.30-5.70); RED CELL DISTRIBUTION WIDTH 15.9 % (11.5-20.0)
[2019-02-25] MEDS: Multivitamin w/ Minerals Tab PO SCH (08:09)
[2019-02-25] MEDS: Aspirin 81mg Chewable Tab PO SCH (08:09)
[2019-02-25] MEDS: INSULIN LISPRO SLIDING SCALE 100 UNITS/ML UNIT SUBQ SCH ×4 (08:16→21:06)
[2019-02-25] MEDS: Venelex 60gm Tube TP SCH (08:18)
--- NOTE | 2019-02-25 18:38 | Internal Medicine Prog Note ---
Internal Medicine Subjective - Subjective Service Date: 02/25/19 Patient is:: awake, in bed, denies any new complaints Internal Medicine Objective - Results Result Diagrams: 02/25/19 06:00 02/25/19 06:00 Recent Labs: Laboratory Last Values WBC 10.3 Th/cmm (4.8-10.8) 02/25/19 06:00 RBC 5.59 Mil/cmm (4.30-5.70) 02/25/19 06:00 Hgb 15.8 gm/dL (12-16) 02/25/19 06:00 Hct 46.6 % (41.0-60) 02/25/19 06:00 MCV 83.3 fl (80-99) 02/25/19 06:00 MCH 28.2 pg (26.0-30.0) 02/25/19 06:00 MCHC Differential 33.8 pg (28.0-36.0) 02/25/19 06:00 RDW 15.9 % (11.5-20.0) 02/25/19 06:00 Plt Count 258 Th/cmm (150-400) 02/25/19 06:00 MPV 8.5 fl 02/25/19 06:00 Neutrophils % 73.2 % (40.0-80.0) 02/25/19 06:00 Lymphocytes % 13.1 % (20.0-50.0) L 02/25/19 06:00 Monocytes % 11.2 % (2.0-10.0) H 02/25/19 06:00 Eosinophils % 2.0 % (0.0-5.0) 02/25/19 06:00 Basophils % 0.5 % (0.0-2.0) 02/25/19 06:00 PT 10.0 SECONDS (9.5-11.5) 02/25/19 06:00 INR 0.96 (0.5-1.4) 02/25/19 06:00 PTT (Actin FS) 31.5 SECONDS (26.0-38.0) 02/25/19 06:00 Sodium 138 mEq/L (136-145) 02/25/19 06:00 Potassium 3.6 mEq/L (3.5-5.1) 02/25/19 06:00 Chloride 104 mEq/L (98-107) 02/25/19 06:00 Carbon Dioxide 24.9 mEq/L (21.0-31.0) 02/25/19 06:00 Anion Gap 12.7 (7.0-16.0) 02/25/19 06:00 BUN 16 mg/dL (7-25) 02/25/19 06:00 Creatinine 0.7 mg/dL (0.7-1.3) 02/25/19 06:00 Est GFR ( Amer) > 60.0 ml/min (>90) 02/25/19 06:00 Est GFR (Non-Af Amer) > 60.0 ml/min 02/25/19 06:00 BUN/Creatinine Ratio 22.9 02/25/19 06:00 Glucose 137 mg/dL (70-105) H 02/25/19 06:00 POC Glucose 119 MG/DL (70 - 105) H 02/25/19 17:01 Calcium 9.6 mg/dL (8.6-10.3) 02/25/19 06:00 Total Bilirubin 0.5 mg/dL (0.3-1.0) 02/25/19 06:00 Direct Bilirubin 0.00 mg/dL (0.0-0.2) 02/22/19 17:50 AST 17 U/L (13-39) 02/25/19 06:00 ALT 15 U/L (7-52) 02/25/19 06:00 Alkaline Phosphatase 92 U/L (34-104) 02/25/19 06:00 Total Protein 7.2 gm/dL (6.0-8.3) 02/25/19 06:00 Albumin 3.9 gm/dL (4.2-5.5) L 02/25/19 06:00 Globulin 3.3 gm/dL 02/25/19 06:00 Albumin/Globulin Ratio 1.2 (1.0-1.8) 02/25/19 06:00 Amylase 39 U/L (29-103) 02/22/19 17:50 Lipase 21 U/L (11-82) 02/22/19 17:50 Blood Type O NEGATIVE 02/25/19 06:00 Antibody Screen NEGATIVE 02/25/19 06:00 - Physical Exam Vitals and I&O: Vital Signs Temp 98.3 F 02/25/19 15:22 Pulse 76 02/25/19 15:22 Resp 18 02/25/19 17:00 BP 154/92 02/25/19 15:22 Pulse Ox 97 02/25/19 15:22 Intake & Output 02/24/19 02/25/19 02/25/19 18:59 06:59 18:59 Intake Total 240 350 Output Total 900 1100 300 Balance -660 -1100 50 Weight (lbs) 134 lb 134 lb 130 lb Intake: Oral 240 350 Output: Urine 800 400 300 Stool 100 700 Other: # Voids 2 2 # Bowel Movements 1 1 Stool Characteristics Soft Soft Soft Brown Brown Brown Weight Source Bedscale Bedscale Bedscale Active Medications: Current Medications Acetaminophen (Tylenol Extra Strength) 1,000 mg PO Q4HR PRN PRN Reason: Pain (Moderate) Stop: 04/24/19 16:54 Acetaminophen (Tylenol) 650 mg PO DAILY [facility] Stop: 04/25/19 08:59 Last Admin: 02/25/19 08:15 Dose: Not Given Albuterol Sulfate (Albuterol 2.5mg/3ml Neb Ud) 2.5 mg HHN Q6H PRN PRN Reason: Shortness of Breath Amitriptyline HCl (Elavil) 50 mg PO HS [facility] Stop: 04/24/19 20:59 Last Admin: 02/24/19 20:23 Dose: 50 mg Ascorbic Acid (Vitamin C) 500 mg PO DAILY [facility] Stop: 04/25/19 08:59 Last Admin: 02/25/19 08:09 Dose: 500 mg Aspirin (Aspirin Chewable) 81 mg PO DAILY [facility] Stop: 04/25/19 08:59 Last Admin: 02/25/19 08:09 Dose: 81 mg Baclofen (Lioresal) 10 mg PO Q8H [facility] Stop: 04/24/19 16:59 Last Admin: 02/25/19 16:29 Dose: 10 mg Bandage/Support Products (Hydrogel) 1 appl TP PRN PRN PRN Reason: PRESSURE WOUND CLEANSE Stop: 04/24/19 16:54 Budesonide (Pulmicort) 0.5 mg HHN BIDRT [facility] Stop: 04/25/19 18:59 [place] Oil/Romanian Balsam/Trypsin (Venelex) 1 appl TP DAILY [facility] Stop: 04/24/19 16:29 Last Admin: 02/25/19 08:18 Dose: 1 appl Cholecalciferol (Vitamin D3) 1,000 iu PO DAILY [facility] Stop: 04/25/19 08:59 Last Admin: 02/25/19 08:09 Dose: 1,000 iu Docusate Sodium (Colace) 100 mg PO DAILY [facility] Stop: 04/25/19 08:59 Last Admin: 02/25/19 08:15 Dose: Not Given Duloxetine HCl (Cymbalta) 30 mg PO DAILY [facility] Stop: 04/26/19 08:59 Last Admin: 02/25/19 08:09 Dose: 30 mg Hydromorphone HCl (Dilaudid) 2 mg IVP Q4HR PRN PRN Reason: Abdominal Pain Stop: 04/23/19 21:45 Last Admin: 02/25/19 16:34 Dose: 2 mg Hydromorphone HCl (Dilaudid) 1 mg IM Q6H PRN PRN Reason: Severe Pain Stop: 04/24/19 16:54 Ceftriaxone Sodium 1 gm/ (Sodium Chloride) 50 mls @ 100 mls/hr IV Q24HR [facility] Stop: 04/23/19 21:29 Last Admin: 02/24/19 20:35 Dose: 100 mls/hr Dextrose/Sodium Chloride (D5-0.45ns) 1,000 mls @ 50 mls/hr IV .Q20H [facility] Stop: 04/23/19 21:59 Last Admin: 02/23/19 20:28 Dose: 50 mls/hr Insulin Human Lispro (Humalog Insulin Sliding Scale) 0 units SUBQ ACHS [facility]; Protocol Stop: 04/24/19 07:29 Last Admin: 02/25/19 17:41 Dose: Not Given Lisinopril (Zestril) 10 mg PO DAILY [facility] Stop: 04/25/19 08:59 Last Admin: 02/25/19 08:09 Dose: 10 mg Magnesium Hydroxide (Milk Of Magnesia) 30 ml PO HS PRN PRN Reason: Constipation Stop: 04/24/19 16:54 Mupirocin (Bactroban Oint) 1 appl NS BID [facility] Stop: 03/01/19 17:01 Last Admin: 02/25/19 16:36 Dose: 1 appl Pregabalin (Lyrica) 150 mg PO BID [facility] Stop: 04/24/19 16:59 Last Admin: 02/25/19 16:28 Dose: 150 mg General: alert HEENT: NC/AT, PERRLA Neck: Supple Cardiovascular: RRR, Normal S1, Normal S2, without murmur Abdomen: distended Extremities: excoriation Neurological: alert - Procedures Procedures: Procedures Procedure Code Date EXCISION OF RIGHT PELVIC BONE, OPEN APPROACH [id number] 10/03/18 EXCISION OF RIGHT UPPER FEMUR, OPEN APPROACH [id number] 07/25/18 INSPECTION OF LOWER INTESTINAL TRACT, ENDO [id number] 05/20/18 REPAIR ABDOMINAL WALL, OPEN APPROACH [id number] 07/25/18 Internal Medicine Assmt/Plan - Assessment Assessment: abd pain 2/2 possible partial incarceration of small bowel loops bilateral aka fecal impaction leukocytosis mild protein calorie malnutrition dm dyslipidemia right hip pressure ulcer - Plan Plan: awaiting for surgeon consult am labs pain mgmt continue current plan of care
--- NOTE | 2019-02-25 21:54 | Consultation ---
Consult Note - Consult Note Service Date: 02/23/19 Referring Physician: Yunier Kraft Consult Note: PHYSICIAN Consultation Note: Date of Admission: 02/22/19 Purpose of Consultation: Chief Complaint: History of Present Illness: Patient CHAPINCITO MCGEE was admitted to [facility] Telemetry with ABDOMINAL PAIN. Past Medical History: Diagnoses ELEVATED WHITE BLOOD CELL COUNT, UNSPECIFIED (02/22/19) TYPE 2 DIABETES MELLITUS WITHOUT COMPLICATIONS (02/22/19) MODERATE PROTEIN-CALORIE MALNUTRITION (02/22/19) UNSPECIFIED ABDOMINAL HERNIA WITHOUT OBSTRUCTION OR GANGRENE (02/22/19) FECAL IMPACTION (02/22/19) PRESSURE ULCER OF SACRAL REGION, STAGE 4 (02/22/19) WEAKNESS (02/22/19) COLOSTOMY STATUS (02/22/19) Allergies Allergy/AdvReac Type Severity Reaction Status Date / Time permethrin [From Elimite] Allergy Verified 08/24/18 13:38 pineapple Allergy Verified 10/03/18 18:20 mushroom AdvReac Verified 08/24/18 13:38 strawberry AdvReac Verified 08/24/18 13:38 Vital Signs Temp 97.3 F 02/25/19 20:00 Pulse 85 02/25/19 20:00 Resp 19 02/25/19 20:00 BP 101/68 02/25/19 20:00 Pulse Ox 92 02/25/19 20:00 Intake & Output 02/25/19 02/25/19 02/26/19 06:59 18:59 06:59 Intake Total 350 Output Total 1100 300 Balance -1100 50 Weight (lbs) 134 lb 130 lb Intake: Oral 350 Output: Urine 400 300 Stool 700 Other: # Voids 2 # Bowel Movements 1 Stool Characteristics Soft Soft Brown Brown Weight Source [facility] Laboratory Results - last 24 hr 02/25/19 02/25/19 02/25/19 06:00 06:00 06:00 WBC 10.3 RBC 5.59 Hgb 15.8 Hct 46.6 MCV 83.3 MCH 28.2 MCHC Differential 33.8 RDW 15.9 Plt Count 258 MPV 8.5 Neutrophils % 73.2 Lymphocytes % 13.1 L Monocytes % 11.2 H Eosinophils % 2.0 Basophils % 0.5 PT INR PTT (Actin FS) Sodium 138 Potassium 3.6 Chloride 104 Carbon Dioxide 24.9 Anion Gap 12.7 BUN 16 Creatinine 0.7 Est GFR ( Amer) > 60.0 Est GFR (Non-Af Amer) > 60.0 BUN/Creatinine Ratio 22.9 Glucose 137 H POC Glucose Calcium 9.6 Total Bilirubin 0.5 AST 17 ALT 15 Alkaline Phosphatase 92 Total Protein 7.2 Albumin 3.9 L Globulin 3.3 Albumin/Globulin Ratio 1.2 Blood Type O NEGATIVE Antibody Screen NEGATIVE 02/25/19 02/25/19 02/25/19 06:00 06:50 12:18 WBC RBC Hgb Hct MCV MCH MCHC Differential RDW Plt Count MPV Neutrophils % Lymphocytes % Monocytes % Eosinophils % Basophils % PT 10.0 INR 0.96 PTT (Actin FS) 31.5 Sodium Potassium Chloride Carbon Dioxide Anion Gap BUN Creatinine Est GFR ( Amer) Est GFR (Non-Af Amer) BUN/Creatinine Ratio Glucose POC Glucose 147 H 128 H Calcium Total Bilirubin AST ALT Alkaline Phosphatase Total Protein Albumin Globulin Albumin/Globulin Ratio Blood Type Antibody Screen 02/25/19 17:01 WBC RBC Hgb Hct MCV MCH MCHC Differential RDW Plt Count MPV Neutrophils % Lymphocytes % Monocytes % Eosinophils % Basophils % PT INR PTT (Actin FS) Sodium Potassium Chloride Carbon Dioxide Anion Gap BUN Creatinine Est GFR ( Amer) Est GFR (Non-Af Amer) BUN/Creatinine Ratio Glucose POC Glucose 119 H Calcium Total Bilirubin AST ALT Alkaline Phosphatase Total Protein Albumin Globulin Albumin/Globulin Ratio Blood Type Antibody Screen Home Medication Medication Instructions Recorded Type Amitriptyline HCl [Amitriptyline 50 mg PO HS 10/06/17 History HCl*] Cholecalciferol (Vitamin D3) 1,000 unit PO DAILY 10/06/17 History [Vitamin D3] Duloxetine HCl [Cymbalta] 20 mg PO DAILY 10/06/17 History Acetaminophen [Tylenol Extra 1,000 mg PO Q4HR PRN 05/20/18 History Strength] Acetaminophen [Tylenol] 650 mg PO DAILY 10/03/18 History Acetaminophen [Tylenol] 650 mg PO Q4H PRN 10/03/18 History Amino Acids/Protein Hydrolys 30 ml PO DAILY 10/03/18 History [Pro-Stat Sugar Free 887 ml] Multivitamin w/ Minerals 1 tab PO DAILY 10/03/18 History [Theragran M] Ascorbic Acid [Vitamin C] 500 mg PO DAILY tab 10/08/18 Rx Aspirin [Aspirin Chewable] 81 mg PO DAILY ctb 10/08/18 Rx Baclofen [Lioresal*] 10 mg PO Q8H tab 10/08/18 Rx Docusate Sodium [Colace] 100 mg PO DAILY cap 10/08/18 Rx Lisinopril [Zestril*] 10 mg PO DAILY tab 10/08/18 Rx Magnesium Hydroxide [Milk of 30 ml PO HS PRN udc 10/08/18 Rx Magnesia] Pregabalin [Lyrica] 150 mg PO BID cap 10/08/18 Rx Albuterol Sulfate [Proventil Hfa*] 0.09 mg IH Q6H PRN 02/22/19 History Budesonide/Formoterol Fumarate 1 aer IH BID 02/22/19 History [Symbicort] Carrasyn [Hydrogel] 1 appl TP PRN PRN 02/22/19 History HYDROmorphone [Dilaudid] 1 mg IM Q6H PRN 02/22/19 History Insulin Aspart Sliding Scale See Protocol SUBQ ACHS 02/22/19 History [NovoLOG INSULIN SLIDING SCALE] Current Medications Generic Name Dose Route Start Last Admin Trade Name Freq PRN Reason Stop Dose Admin Acetaminophen 1,000 mg 02/23/19 16:55 Tylenol Extra Strength PO 04/24/19 16:54 Q4HR PRN Pain (Moderate) Acetaminophen 650 mg 02/24/19 09:00 02/25/19 08:15 Tylenol PO 04/25/19 08:59 Not Given DAILY AMPARO Albuterol Sulfate 2.5 mg 02/23/19 16:55 Albuterol 2.5mg/3ml Neb Ud HHN Q6H PRN Shortness of Breath Amitriptyline HCl 50 mg 02/23/19 21:00 02/25/19 20:26 Elavil PO 04/24/19 20:59 50 mg HS AMPARO Administration Ascorbic Acid 500 mg 02/24/19 09:00 02/25/19 08:09 Vitamin C PO 04/25/19 08:59 500 mg DAILY AMPARO Administration Aspirin 81 mg 02/24/19 09:00 02/25/19 08:09 Aspirin Chewable PO 04/25/19 08:59 81 mg DAILY AMPARO Administration Baclofen 10 mg 02/23/19 17:00 02/25/19 16:29 Lioresal PO 04/24/19 16:59 10 mg Q8H AMPARO Administration Bandage/Support Products 1 appl 02/23/19 16:55 Hydrogel TP 04/24/19 16:54 PRN PRN PRESSURE WOUND CLEANSE Budesonide 0.5 mg 02/24/19 19:00 Pulmicort HHN 04/25/19 18:59 BIDRT AMPARO [place] Oil/[place]enian Balsam/Trypsin 1 appl 02/23/19 16:30 02/25/19 08:18 Venelex TP 04/24/19 16:29 1 appl DAILY AMPARO Administration Cholecalciferol 1,000 iu 02/24/19 09:00 02/25/19 08:09 Vitamin D3 PO 04/25/19 08:59 1,000 iu DAILY AMPARO Administration Docusate Sodium 100 mg 02/24/19 09:00 02/25/19 08:15 Colace PO 04/25/19 08:59 Not Given DAILY AMPARO Duloxetine HCl 30 mg 02/25/19 09:00 02/25/19 08:09 Cymbalta PO 04/26/19 08:59 30 mg DAILY AMPARO Administration Hydromorphone HCl 2 mg 02/22/19 21:46 02/25/19 20:26 Dilaudid IVP 04/23/19 21:45 2 mg Q4HR PRN Administration Abdominal Pain Hydromorphone HCl 1 mg 02/23/19 16:55 Dilaudid IM 04/24/19 16:54 Q6H PRN Severe Pain Ceftriaxone Sodium 1 gm/ 50 mls @ 100 mls/hr 02/22/19 21:30 02/24/19 20:35 Sodium Chloride IV 04/23/19 21:29 100 mls/hr Q24HR [facility] Administration Dextrose/Sodium Chloride 1,000 mls @ 50 mls/hr 02/22/19 22:00 02/23/19 20:28 D5-0.45ns IV 04/23/19 21:59 50 mls/hr .Q20H AMPARO Administration Insulin Human Lispro 0 units 02/23/19 09:19 02/25/19 21:06 Humalog Insulin Sliding Scale SUBQ 04/24/19 07:29 3 units ACHS AMPARO Administration Protocol Lisinopril 10 mg 02/24/19 09:00 02/25/19 08:09 Zestril PO 04/25/19 08:59 10 mg DAILY AMP[facility] Administration Magnesium Hydroxide 30 ml 02/23/19 16:55 Milk Of Magnesia PO 04/24/19 16:54 HS PRN Constipation Mupirocin 1 appl 02/25/19 09:00 02/25/19 16:36 Bactroban Oint NS 03/01/19 17:01 1 appl BID AMP[facility]O Administration Pregabalin 150 mg 02/23/19 17:00 02/25/19 16:28 Lyrica PO 04/24/19 16:59 150 mg BID AMPARO Administration Review of Systems: A 12 point ROS was reviewed with the pertinent positive and negatives noted in the HPI. Social History Smoking Status Current every day smoker Drug Use Yes Alcohol Use Yes Family Medical History Family Medical History Start: 02/22/19 21: 21 Freq: ONCE Status: Active Protocol: Document 02/22/19 21:21 [email or web address] (Rec: 02/22/19 23:27 [email or web address] [id number]) Family Medical History Mother History Unknown Yes Physical Exam: General: HEENT: Neck: Cardio: Respiratory: Abdominal: large left sided paracolostomy hernia with mostly small bowel without small bowel obstruction Genital/Urinary: Extremities: Neurological: Assessment: paracolostomy hernia Plan: Repair of paracolostomy hernia with possible biologic graft with exploratory laparotomy Signed, Sadia Funes [id number]
[2019-02-25] MEDS ORDERED: Magnesium Citrate 1.75 GM/300 mL Bottle PO ONE (22:04)
[2019-02-25] MEDS: cefTRIAXone 1 GM in Sodium Chloride 0.9% 50 ML IV SCH (23:35)
[2019-02-26] MEDS: HYDROmorphone 2 mg/mL 1mL Vial IVP PRN ×5 (01:00→19:58)
[2019-02-26] MEDS ORDERED: Magnesium Citrate 1.75 GM/300 mL Bottle PO ONE (01:13)
--- NOTE | 2019-02-26 05:31 | Consultation ---
DATE OF CONSULTATION: 02/25/[address] Kraft. HISTORY OF PRESENT ILLNESS: This is a 58-year-old male patient who has right hip decubitus ulcer. The patient had diverting colostomy. Following this, the patient developed abdominal ventral hernia. The patient is here for possible surgical intervention and cardiac clearance is requested. PAST MEDICAL HISTORY: The patient has a history of large ventral hernia, PVCs and bigeminy, stage IV right hip decubitus ulcer, bilateral above-knee amputation, diabetes mellitus type 2, diverting colostomy, hypertension, paranoid schizophrenia, anxiety disorder, and nicotine dependence. FAMILY HISTORY: Unremarkable. SOCIAL HISTORY: The patient has a history of smoking. ALLERGIES: None. PHYSICAL EXAMINATION: VITAL SIGNS: Blood pressure 130/80, pulse 70, and respirations 20. HEAD: Normocephalic. No lumps or bumps. EYES: Pupils equal, reactive to light. Fundi show AV nicking, sclerae white, conjunctivae pink. NECK: Carotid 2+. Normal upstroke. JVD flat. Thyroid not palpable. Lymph nodes not palpable. CHEST: Shows increased AP diameter. No kyphosis, scoliosis. LUNGS: Bilateral bronchovesicular breath sounds. HEART: PMI fifth intercostal space with lateral to midclavicular line. S1, S2. No S3, S4, soft systolic murmur. ABDOMEN: Soft. Liver, spleen not palpable. No organomegaly. Bowel sounds active. The patient has colostomy and large ventral hernia. NEUROLOGICAL: Unremarkable. EXTREMITIES: The patient has above-knee amputation, bilateral. CLINICAL IMPRESSION: Large ventral hernia, PVCs, bigeminy resolved, stage IV right hip decubitus ulcer, bilateral above-knee amputation, diabetes mellitus type 2, diverting colostomy, hypertension, paranoid schizophrenia, anxiety, and nicotine dependence. PLAN: The patient to continue present management. The patient is cleared for surgery. JOB# [id number]
[2019-02-26 07:07] LABS: % BASOPHILS 0.4 % (0.0-2.0); % EOSINOPHILS 2.9 % (0.0-5.0); % LYMPHOCYTES 19.7 % (20.0-50.0); % MONOCYTES 11.6 % (2.0-10.0); % NEUTROPHILS 65.4 % (40.0-80.0); EOSINOPHILE ABSOLUTE 0.3 Th/cmm (0.1-0.4); HEMATOCRIT 44.7 % (41.0-60); HEMOGLOBIN 14.4 gm/dL (12-16); LYMPHOCYTE ABSOLUTE 1.8 Th/cmm (1.5-3.0); MEAN CELL VOLUME 84.7 fl (80-99); MEAN CORPUSCULAR HEMOGLOBIN 27.2 pg (26.0-30.0); MEAN CORPUSCULAR HGB CONC 32.1 pg (28.0-36.0); MEAN PLATELET VOLUME 8.5 fl; MONOCYTE ABSOLUTE 1.1 Th/cmm (0.3-1.0); PLATELET COUNT 245 Th/cmm (150-400); RED BLOOD COUNT 5.27 Mil/cmm (4.30-5.70); RED CELL DISTRIBUTION WIDTH 15.6 % (11.5-20.0); WHITE BLOOD COUNT 9.2 Th/cmm (4.8-10.8)
[2019-02-26 07:22] LABS: ANION GAP 12.4 (7.0-16.0); BUN - UREA NITROGEN 18 mg/dL (7-25); CALCIUM SERUM 9.1 mg/dL (8.6-10.3); CARBON DIOXIDE 25.2 mEq/L (21.0-31.0); CHLORIDE 104 mEq/L (98-107); GFR AFRICAN-AMERICAN > 60.0 ml/min (>90); GFR NON AFRICAN-AMERICAN > 60.0 ml/min; GLUCOSE 108 mg/dL (70-105); POTASSIUM SERUM 3.6 mEq/L (3.5-5.1); SODIUM SERUM 138 mEq/L (136-145)
[2019-02-26] MEDS: INSULIN LISPRO SLIDING SCALE 100 UNITS/ML UNIT SUBQ SCH ×4 (07:40→21:08)
[2019-02-26] MEDS: Aspirin 81mg Chewable Tab PO SCH (08:27)
[2019-02-26] MEDS: Multivitamin w/ Minerals Tab PO SCH (08:28)
[2019-02-26] MEDS ORDERED: fentaNYL Citrate 100 mcg/2mL Vial ONE ×2 (10:57→14:21)
[2019-02-26] MEDS ORDERED: EPI INJ ONE (11:00)
[2019-02-26] MEDS ORDERED: BUPIVACAINE 0.5% INJ ONE (11:00)
[2019-02-26] MEDS: Venelex 60gm Tube TP SCH (11:00)
[2019-02-26] MEDS ORDERED: Sodium Chloride 0.9% 1,000 ML IV ONE (11:00)
[2019-02-26] MEDS ORDERED: Propofol **SURGERY USE ONLY** 20 ML IV ONE (11:55)
[2019-02-26] MEDS ORDERED: metroNIDAZOLE 500mg/NS 100mL 500 MG/100 ML BAG IV ONE (12:14)
--- NOTE | 2019-02-26 14:11 | Operative Report ---
Operative Report - Surgery Date of Surgery:: 02/26/19 Anesthesia:: Anesthesiologist: Anesthesia:
[2019-02-26] MEDS ORDERED: Hydrocodone/APAP 5mg/325mg Tab PO PRN (14:23)
--- NOTE | 2019-02-26 14:27 | Internal Medicine Prog Note ---
Internal Medicine Subjective - Subjective Service Date: 02/26/19 Patient seen and examined:: chart reviewed Patient is:: awake, verbal, interactive, in bed, denies any new complaints Internal Medicine Objective - Results Result Diagrams: 02/26/19 05:45 02/26/19 05:45 Recent Labs: Laboratory Last Values WBC 9.2 Th/cmm (4.8-10.8) 02/26/19 05:45 RBC 5.27 Mil/cmm (4.30-5.70) 02/26/19 05:45 Hgb 14.4 gm/dL (12-16) 02/26/19 05:45 Hct 44.7 % (41.0-60) 02/26/19 05:45 MCV 84.7 fl (80-99) 02/26/19 05:45 MCH 27.2 pg (26.0-30.0) 02/26/19 05:45 MCHC Differential 32.1 pg (28.0-36.0) 02/26/19 05:45 RDW 15.6 % (11.5-20.0) 02/26/19 05:45 Plt Count 245 Th/cmm (150-400) 02/26/19 05:45 MPV 8.5 fl 02/26/19 05:45 Neutrophils % 65.4 % (40.0-80.0) 02/26/19 05:45 Lymphocytes % 19.7 % (20.0-50.0) L 02/26/19 05:45 Monocytes % 11.6 % (2.0-10.0) H 02/26/19 05:45 Eosinophils % 2.9 % (0.0-5.0) 02/26/19 05:45 Basophils % 0.4 % (0.0-2.0) 02/26/19 05:45 PT 10.0 SECONDS (9.5-11.5) 02/25/19 06:00 INR 0.96 (0.5-1.4) 02/25/19 06:00 PTT (Actin FS) 31.5 SECONDS (26.0-38.0) 02/25/19 06:00 Sodium 138 mEq/L (136-145) 02/26/19 05:45 Potassium 3.6 mEq/L (3.5-5.1) 02/26/19 05:45 Chloride 104 mEq/L (98-107) 02/26/19 05:45 Carbon Dioxide 25.2 mEq/L (21.0-31.0) 02/26/19 05:45 Anion Gap 12.4 (7.0-16.0) 02/26/19 05:45 BUN 18 mg/dL (7-25) 02/26/19 05:45 Creatinine 1.0 mg/dL (0.7-1.3) 02/26/19 05:45 Est GFR ( Amer) > 60.0 ml/min (>90) 02/26/19 05:45 Est GFR (Non-Af Amer) > 60.0 ml/min 02/26/19 05:45 BUN/Creatinine Ratio 18.0 02/26/19 05:45 Glucose 108 mg/dL (70-105) H 02/26/19 05:45 POC Glucose 112 MG/DL (70-105) H 02/26/19 05:24 Calcium 9.1 mg/dL (8.6-10.3) 02/26/19 05:45 Total Bilirubin 0.5 mg/dL (0.3-1.0) 02/25/19 06:00 Direct Bilirubin 0.00 mg/dL (0.0-0.2) 02/22/19 17:50 AST 17 U/L (13-39) 02/25/19 06:00 ALT 15 U/L (7-52) 02/25/19 06:00 Alkaline Phosphatase 92 U/L (34-104) 02/25/19 06:00 Total Protein 7.2 gm/dL (6.0-8.3) 02/25/19 06:00 Albumin 3.9 gm/dL (4.2-5.5) L 02/25/19 06:00 Globulin 3.3 gm/dL 02/25/19 06:00 Albumin/Globulin Ratio 1.2 (1.0-1.8) 02/25/19 06:00 Amylase 39 U/L (29-103) 02/22/19 17:50 Lipase 21 U/L (11-82) 02/22/19 17:50 Blood Type O NEGATIVE 02/25/19 06:00 Antibody Screen NEGATIVE 02/25/19 06:00 - Physical Exam Vitals and I&O: Vital Signs Temp 96.8 F 02/26/19 07:50 Pulse 70 02/26/19 07:50 Resp 18 02/26/19 10:00 BP 111/74 02/26/19 07:50 Pulse Ox 98 02/26/19 07:50 Intake & Output 02/25/19 02/26/19 02/26/19 18:59 06:59 18:59 Intake Total 350 325 Output Total 300 325 Balance 50 0 Weight (lbs) 58.967 kg 58.967 kg Intake: Oral 350 325 Output: Urine 300 325 Other: # Bowel Movements 1 1 Stool Characteristics Soft Soft Soft Brown Brown Liquid Brown Weight Source Bedscale Bedscale Active Medications: Current Medications Acetaminophen (Tylenol Extra Strength) 1,000 mg PO Q4HR PRN PRN Reason: Pain (Moderate) Stop: 04/24/19 16:54 Acetaminophen (Tylenol) 650 mg PO DAILY [facility] Stop: 04/25/19 08:59 Last Admin: 02/26/19 08:26 Dose: Not Given Albuterol Sulfate (Albuterol 2.5mg/3ml Neb Ud) 2.5 mg HHN Q6H PRN PRN Reason: Shortness of Breath Amitriptyline HCl (Elavil) 50 mg PO HS [facility] Stop: 04/24/19 20:59 Last Admin: 02/25/19 20:26 Dose: 50 mg Ascorbic Acid (Vitamin C) 500 mg PO DAILY [facility] Stop: 04/25/19 08:59 Last Admin: 02/26/19 08:27 Dose: Not Given Aspirin (Aspirin Chewable) 81 mg PO DAILY [facility] Stop: 04/25/19 08:59 Last Admin: 02/26/19 08:27 Dose: Not Given Baclofen (Lioresal) 10 mg PO Q8H [facility] Stop: 04/24/19 16:59 Last Admin: 02/26/19 08:27 Dose: Not Given Bandage/Support Products (Hydrogel) 1 appl TP PRN PRN PRN Reason: PRESSURE WOUND CLEANSE Stop: 04/24/19 16:54 Budesonide (Pulmicort) 0.5 mg HHN BIDRT [facility] Stop: 04/25/19 18:59 [place] Oil/Vincentian Balsam/Trypsin (Venelex) 1 appl TP DAILY [facility] Stop: 04/24/19 16:29 Last Admin: 02/26/19 11:00 Dose: Not Given Cholecalciferol (Vitamin D3) 1,000 iu PO DAILY [facility] Stop: 04/25/19 08:59 Last Admin: 02/26/19 08:27 Dose: Not Given Docusate Sodium (Colace) 100 mg PO DAILY [facility] Stop: 04/25/19 08:59 Last Admin: 02/26/19 08:27 Dose: Not Given Duloxetine HCl (Cymbalta) 30 mg PO DAILY [facility] Stop: 04/26/19 08:59 Last Admin: 02/26/19 08:28 Dose: Not Given Hydromorphone HCl (Dilaudid) 2 mg IVP Q4HR PRN PRN Reason: Abdominal Pain Stop: 04/23/19 21:45 Last Admin: 02/26/19 09:32 Dose: 2 mg Hydromorphone HCl (Dilaudid) 1 mg IM Q6H PRN PRN Reason: Severe Pain Stop: 04/24/19 16:54 Ceftriaxone Sodium 1 gm/ (Sodium Chloride) 50 mls @ 100 mls/hr IV Q24HR [facility] Stop: 04/23/19 21:29 Last Admin: 02/25/19 23:35 Dose: 100 mls/hr Dextrose/Sodium Chloride (D5-0.45ns) 1,000 mls @ 50 mls/hr IV .Q20H [facility] Stop: 04/23/19 21:59 Last Admin: 02/23/19 20:28 Dose: 50 mls/hr Insulin Human Lispro (Humalog Insulin Sliding Scale) 0 units SUBQ ACHS [facility]; Protocol Stop: 04/24/19 07:29 Last Admin: 02/26/19 11:04 Dose: Not Given Lisinopril (Zestril) 10 mg PO DAILY [facility] Stop: 04/25/19 08:59 Last Admin: 02/26/19 08:28 Dose: Not Given Magnesium Hydroxide (Milk Of Magnesia) 30 ml PO HS PRN PRN Reason: Constipation Stop: 04/24/19 16:54 Mupirocin (Bactroban Oint) 1 appl NS BID [facility] Stop: 03/01/19 17:01 Last Admin: 02/26/19 11:04 Dose: 1 appl Neomycin Sulfate (Neomycin) 1,000 mg PO Q6HR [facility] Stop: 04/27/19 00:00 Last Admin: 02/26/19 11:04 Dose: Not Given Pregabalin (Lyrica) 150 mg PO BID [facility] Stop: 04/24/19 16:59 Last Admin: 02/26/19 08:26 Dose: Not Given General: alert HEENT: NC/AT, PERRLA Neck: Supple Cardiovascular: RRR, Normal S1, Normal S2, without murmur Abdomen: distended Extremities: excoriation Neurological: alert - Procedures Procedures: Procedures Procedure Code Date EXCISION OF RIGHT PELVIC BONE, OPEN APPROACH [id number] 10/03/18 EXCISION OF RIGHT UPPER FEMUR, OPEN APPROACH [id number] 07/25/18 INSPECTION OF LOWER INTESTINAL TRACT, ENDO [id number] 05/20/18 REPAIR ABDOMINAL WALL, OPEN APPROACH [id number] 07/25/18
[2019-02-26] MEDS: Sodium Chloride 0.9% 1,000 ML IV SCH (15:07)
[2019-02-26 16:14] LABS: pH 7.267 (7.35-7.45)
[2019-02-26 16:15] LABS: PaCO2 43.2 mmHg (35.0-45.0); PaO2 72.1 mmHg (80.0-100.0); sO2c 92.4 % (92.0-100.0)
[2019-02-26] MEDS: metroNIDAZOLE 500mg/NS 100mL 500 MG/100 ML BAG IV SCH (20:51)
[2019-02-26] MEDS ORDERED: ceFAZolin 1 GM in Sodium Chloride 0.9% 50 ML IV SCH (21:00)
[2019-02-26] MEDS: Chlorhexidine Gluconate 0.12% 15mL Mouthwash MM SCH (21:08)
[2019-02-26] MEDS: cefTRIAXone 1 GM in Sodium Chloride 0.9% 50 ML IV SCH (22:23)
[2019-02-27] MEDS: HYDROmorphone 2 mg/mL 1mL Vial IVP PRN ×6 (00:29→21:38)
[2019-02-27] MEDS: Sodium Chloride 0.9% 1,000 ML IV SCH ×2 (00:53→14:00)
[2019-02-27] MEDS: metroNIDAZOLE 500mg/NS 100mL 500 MG/100 ML BAG IV SCH (04:57)
[2019-02-27 05:25] LABS: HEMATOCRIT 44.4 % (41.0-60); HEMOGLOBIN 14.7 gm/dL (12-16); MEAN CELL VOLUME 83.2 fl (80-99); MEAN CORPUSCULAR HEMOGLOBIN 27.6 pg (26.0-30.0); MEAN CORPUSCULAR HGB CONC 33.2 pg (28.0-36.0); MEAN PLATELET VOLUME 8.1 fl; PLATELET COUNT 276 Th/cmm (150-400); RED BLOOD COUNT 5.33 Mil/cmm (4.30-5.70); RED CELL DISTRIBUTION WIDTH 15.6 % (11.5-20.0)
[2019-02-27 05:41] LABS: ALB/GLOB RATIO 1.2 (1.0-1.8); ALBUMIN 3.7 gm/dL (4.2-5.5); ALKALINE PHOSPHATASE 103 U/L (34-104); ANION GAP 13.8 (7.0-16.0); BILIRUBIN,TOTAL 0.4 mg/dL (0.3-1.0); BUN - UREA NITROGEN 15 mg/dL (7-25); CALCIUM SERUM 8.8 mg/dL (8.6-10.3); CARBON DIOXIDE 21.8 mEq/L (21.0-31.0); CHLORIDE 108 mEq/L (98-107); CREATININE - SERUM 0.7 mg/dL (0.7-1.3); GFR AFRICAN-AMERICAN > 60.0 ml/min (>90); GFR NON AFRICAN-AMERICAN > 60.0 ml/min; GLUCOSE 143 mg/dL (70-105); POTASSIUM SERUM 3.6 mEq/L (3.5-5.1); SGOT 27 U/L (13-39); SGPT/ALT 39 U/L (7-52); SODIUM SERUM 140 mEq/L (136-145); TOTAL PROTEIN,SERUM 6.7 gm/dL (6.0-8.3)
[2019-02-27] MEDS: INSULIN LISPRO SLIDING SCALE 100 UNITS/ML UNIT SUBQ SCH ×4 (06:56→21:01)
[2019-02-27] MEDS: Budesonide 0.5 Mg/2 mL Ud HHN SCH ×2 (07:06→19:15)
[2019-02-27 07:21] LABS: BAND NEUTROPHILE 1 % (0-10); BASOPHIL 0 % (0-3); EOSINOPHIL 0 % (0-5); LYMPHOCYTE 9 % (20-50); MONOCYTE 5 % (2-10); NEUTROPHILS 85 % (40-80); PLATELET ESTIMATE ADEQUATE (NORMAL)
[2019-02-27] MEDS: Chlorhexidine Gluconate 0.12% 15mL Mouthwash MM SCH ×2 (08:50→20:16)
[2019-02-27] MEDS: Aspirin 81mg Chewable Tab PO SCH (10:11)
[2019-02-27] MEDS: Multivitamin w/ Minerals Tab PO SCH (10:12)
--- NOTE | 2019-02-27 10:49 | Diagnostic Imaging Report ---
CHEST X-RAY: AP view INDICATION: Intubation COMPARISON: Chest x-ray 02/22/2019 FINDINGS: ET tube is in place with tip 6.2 cm above the Macy. Gas distended stomach is noted. Right mid to lower lung zone linear markings are noted. No focal consolidation or effusions. Heart size is normal. IMPRESSION: Interval intubation with ET tube tip 6.2 cm above the Macy Right mid to lower lung zone linear markings favoring subsegmental atelectatic changes. Gaseous distended stomach.
[2019-02-27 13:20] LABS: PaCO2 38.9 mmHg (35.0-45.0); PaO2 85.9 mmHg (80.0-100.0); pH 7.331 (7.35-7.45); sO2c 95.9 % (92.0-100.0)
[2019-02-27 13:21] LABS: ALLEN TEST P
--- NOTE | 2019-02-27 13:43 | Consultation ---
DATE OF CONSULTATION: 02/27/2019 REASON FOR CONSULTATION: Help the patient with respiratory failure. HISTORY OF PRESENT ILLNESS: This is a 58-year-old gentleman who has multiple medical problems including a history of bilateral leg amputation and also has a previous history of colostomy and the patient was brought up here because of initially fever and subsequently the patient was admitted and also the patient was taken to the surgery night before last for exploratory including hernia repair. Postoperatively, the patient was on a respirator. I was asked to see this patient for further care and necessary treatment. Unfortunately, the patient is intubated. Meaningful communication from the patient could not be obtain at this particular time. PHYSICAL EXAMINATION: GENERAL: Currently on assist control and no respiratory distress, etc. Propofol was stopped a few hours ago. VITAL SIGNS: He was afebrile. BP 157/84, sat on 50% of oxygen. NECK: Veins not visualized. CHEST: Shows diminished air entry with occasional rhonchi. HEART: Regular. ABDOMEN: Surgical scar multiple including colostomy as well as hernia repairs and left side as well as in the central. EXTREMITIES: Extremities shows both above the knee amputation light. LABORATORY DATA: The patient's white count is 15,000, hemoglobin is 14.7 and the patient's chloride is 108. IMAGING: The patient's chest x-ray unremarkable except for pleural thickening, right mid lung area, possibly slightly hyperinflated lung. ASSESSMENT: The patient clinically appears to be stable postoperatively. PLANS AND SUGGESTIONS: 1. We will stop propofol. 2. We will go ahead and put her on a CPAP with pressor support, see how he does. If he does okay in next 24 hours possibly consideration of extubation. JOB# [id number]
[2019-02-27] MEDS: Albuterol/Ipratropium Neb 3 ML AERS HHN SCH ×3 (15:02→22:48)
[2019-02-27] MEDS: Venelex 60gm Tube TP SCH (17:30)
[2019-02-27] MEDS ORDERED: Budesonide 0.5 Mg/2 mL Ud HHN SCH (19:00)
[2019-02-27] MEDS: cefTRIAXone 1 GM in Sodium Chloride 0.9% 50 ML IV SCH (21:39)
--- NOTE | 2019-02-27 22:26 | Progress Notes ---
DATE: 02/27/2019 SUBJECTIVE: The patient was seen in ICU. The patient is currently asleep, orally intubated with the ongoing Diprivan drip. The patient underwent with a paracolostomy hernia repair yesterday. Currently, the patient appears to be comfortable, in no acute distress. OBJECTIVE: VITAL SIGNS: Temperature 97.8, heart rate 97, blood pressure 130/69, respirations of 20 and 96% on FiO2 of 50%. HEENT: Head is atraumatic and normocephalic. Eyes: Bilateral conjunctivae are clear. Bilateral pupils are equally round and reactive. NECK: Supple. No JVD. The patient is currently orally intubated, connected to ventilator. CARDIOVASCULAR: S1 and S2, without murmur, sinus rhythm on the monitor. PULMONARY: Clear to auscultation. GASTROINTESTINAL: Soft and nontender without guarding. Positive bowel sounds. GENITOURINARY: The patient has a colostomy tube in place. Kyle-Cheema with minimal discharge noted. MUSCULOSKELETAL: No clubbing. No cyanosis. EXTREMITIES: Positive bilateral lower extremity amputation. ASSESSMENT: 1. Left-sided paracolostomy hernia. 2. Bilateral lower extremity amputation. 3. Hypertension. 4. Hyperlipidemia. 5. Diabetes. 6. Right hip pressure ulcer. PLAN: We will continue to keep the patient in ICU. We will try to wean off the patient as tolerated. We will continue Diprivan and titrate as tolerated. We will order a wound culture if has not yet done. Treatment plans were discussed with the patient's nurse. Treatment plans were discussed with Dr. Kraft. JOB# [id number]
[2019-02-28] MEDS: HYDROmorphone 2 mg/mL 1mL Vial IVP PRN ×5 (01:50→20:38)
[2019-02-28] MEDS: Albuterol/Ipratropium Neb 3 ML AERS HHN SCH ×6 (03:18→22:12)
[2019-02-28] MEDS: Sodium Chloride 0.9% 1,000 ML IV SCH ×2 (03:33→16:48)
[2019-02-28 04:52] LABS: % BASOPHILS 0.1 % (0.0-2.0); % EOSINOPHILS 0.2 % (0.0-5.0); % LYMPHOCYTES 4.6 % (20.0-50.0); % MONOCYTES 8.1 % (2.0-10.0); HEMATOCRIT 40.7 % (41.0-60); LYMPHOCYTE ABSOLUTE 0.7 Th/cmm (1.5-3.0); MEAN CELL VOLUME 84.3 fl (80-99); MEAN CORPUSCULAR HEMOGLOBIN 26.9 pg (26.0-30.0); MEAN CORPUSCULAR HGB CONC 31.9 pg (28.0-36.0); MEAN PLATELET VOLUME 8.4 fl; MONOCYTE ABSOLUTE 1.2 Th/cmm (0.3-1.0); NEUTROPHILE ABSOLUTE 13.3 Th/cmm (1.8-8.0); PLATELET COUNT 246 Th/cmm (150-400); RED BLOOD COUNT 4.83 Mil/cmm (4.30-5.70); RED CELL DISTRIBUTION WIDTH 15.5 % (11.5-20.0)
[2019-02-28 04:59] LABS: WHITE BLOOD COUNT 15.2 Th/cmm (4.8-10.8)
[2019-02-28 05:26] LABS: LYMPHOCYTE 7 % (20-50); MONOCYTE 8 % (2-10); NEUTROPHILS 85 % (40-80)
[2019-02-28] MEDS: INSULIN LISPRO SLIDING SCALE 100 UNITS/ML UNIT SUBQ SCH ×4 (06:29→20:37)
[2019-02-28] MEDS: Budesonide 0.5 Mg/2 mL Ud HHN SCH ×2 (06:36→18:51)
[2019-02-28] MEDS: Chlorhexidine Gluconate 0.12% 15mL Mouthwash MM SCH (08:37)
[2019-02-28] MEDS: Aspirin 81mg Chewable Tab PO SCH (09:16)
[2019-02-28] MEDS: Multivitamin w/ Minerals Tab PO SCH (09:17)
[2019-02-28 09:19] LABS: ALB/GLOB RATIO 1.2 (1.0-1.8); ALBUMIN 3.6 gm/dL (4.2-5.5); ALKALINE PHOSPHATASE 92 U/L (34-104); ANION GAP 17.1 (7.0-16.0); BILIRUBIN,TOTAL 0.5 mg/dL (0.3-1.0); BUN - UREA NITROGEN 10 mg/dL (7-25); CALCIUM SERUM 9.1 mg/dL (8.6-10.3); CARBON DIOXIDE 21.1 mEq/L (21.0-31.0); CHLORIDE 112 mEq/L (98-107); CREATININE - SERUM 0.7 mg/dL (0.7-1.3); GFR AFRICAN-AMERICAN > 60.0 ml/min (>90); GFR NON AFRICAN-AMERICAN > 60.0 ml/min; GLUCOSE 147 mg/dL (70-105); POTASSIUM SERUM 4.2 mEq/L (3.5-5.1); SGOT 25 U/L (13-39); SGPT/ALT 30 U/L (7-52); SODIUM SERUM 146 mEq/L (136-145); TOTAL PROTEIN,SERUM 6.6 gm/dL (6.0-8.3)
[2019-02-28 10:02] LABS: PaCO2 34.6 mmHg (35.0-45.0); PaO2 135.2 mmHg (80.0-100.0); sO2c 98.7 % (92.0-100.0)
[2019-02-28 10:03] LABS: ALLEN TEST Positive
[2019-02-28] MEDS: Venelex 60gm Tube TP SCH (10:54)
--- NOTE | 2019-02-28 10:57 | Diagnostic Imaging Report ---
CHEST X-RAY: AP view INDICATION: Shortness of breath COMPARISON: Chest x-ray 02/27/2019 FINDINGS: ET tube is seen with tip 6 cm above the Macy. No focal consolidation or effusions. Mild chronic changes are noted. Heart size is normal. IMPRESSION: Endotracheal tube with tip 6cm above the Macy. No focal consolidation identified Left basal subsegmental atelectasis versus scarring.
--- NOTE | 2019-02-28 13:54 | Internal Medicine Prog Note ---
Internal Medicine Subjective - Subjective Service Date: 02/28/19 (patient seen and examined orally intubated on CPAP mode tolerating well. ) Patient is:: arousable, in bed, denies any new complaints Internal Medicine Objective - Results Result Diagrams: 02/28/19 04:10 02/28/19 04:10 Recent Labs: Laboratory Last Values WBC 15.2 Th/cmm (4.8-10.8) H 02/28/19 04:10 RBC 4.83 Mil/cmm (4.30-5.70) 02/28/19 04:10 Hgb 13.0 gm/dL (12-16) 02/28/19 04:10 Hct 40.7 % (41.0-60) L 02/28/19 04:10 MCV 84.3 fl (80-99) 02/28/19 04:10 MCH 26.9 pg (26.0-30.0) 02/28/19 04:10 MCHC Differential 31.9 pg (28.0-36.0) 02/28/19 04:10 RDW 15.5 % (11.5-20.0) 02/28/19 04:10 Plt Count 246 Th/cmm (150-400) 02/28/19 04:10 MPV 8.4 fl 02/28/19 04:10 Neutrophils % 87.0 % (40.0-80.0) H 02/28/19 04:10 Band Neutrophils % 1 % (0-10) 02/27/19 04:50 Lymphocytes % 4.6 % (20.0-50.0) L 02/28/19 04:10 Monocytes % 8.1 % (2.0-10.0) 02/28/19 04:10 Eosinophils % 0.2 % (0.0-5.0) 02/28/19 04:10 Basophils % 0.1 % (0.0-2.0) 02/28/19 04:10 Neutrophils (Manual) 85 % (40-80) H 02/28/19 04:10 Lymphocytes 7 % (20-50) L 02/28/19 04:10 Monocytes 8 % (2-10) 02/28/19 04:10 Eosinophils 0 % (0-5) 02/27/19 04:50 Basophils 0 % (0-3) 02/27/19 04:50 Platelet Estimate ADEQUATE (NORMAL) 02/27/19 04:50 PT 10.0 SECONDS (9.5-11.5) 02/25/19 06:00 INR 0.96 (0.5-1.4) 02/25/19 06:00 PTT (Actin FS) 31.5 SECONDS (26.0-38.0) 02/25/19 06:00 Specimen Source Arterial 02/28/19 09:50 Sample Site Left Radial 02/28/19 09:50 pH 7.390 (7.35-7.45) 02/28/19 09:50 pCO2 34.6 mmHg (35.0-45.0) L 02/28/19 09:50 pO2 135.2 mmHg (80.0-100.0) H 02/28/19 09:50 HCO3 20.5 mEq/L (20.0-26.0) 02/28/19 09:50 Base Excess -3.6 mEq/L (-3.0-3.0) L 02/28/19 09:50 O2 Saturation 98.7 % (92.0-100.0) 02/28/19 09:50 Steven Test Positive 02/28/19 09:50 Vent Rate NA 02/28/19 09:50 Inspired O2 50 02/28/19 09:50 Tidal Volume NA 02/28/19 09:50 PEEP 5 02/28/19 09:50 Pressure (ins/psv/peep) 10 02/28/19 09:50 Critical Value JG 02/28/19 09:50 Sodium 146 mEq/L (136-145) H 02/28/19 04:10 Potassium 4.2 mEq/L (3.5-5.1) 02/28/19 04:10 Chloride 112 mEq/L (98-107) H 02/28/19 04:10 Carbon Dioxide 21.1 mEq/L (21.0-31.0) 02/28/19 04:10 Anion Gap 17.1 (7.0-16.0) H 02/28/19 04:10 BUN 10 mg/dL (7-25) 02/28/19 04:10 Creatinine 0.7 mg/dL (0.7-1.3) 02/28/19 04:10 Est GFR ( Amer) > 60.0 ml/min (>90) 02/28/19 04:10 Est GFR (Non-Af Amer) > 60.0 ml/min 02/28/19 04:10 BUN/Creatinine Ratio 14.3 02/28/19 04:10 Glucose 147 mg/dL (70-105) H 02/28/19 04:10 POC Glucose 141 MG/DL (70 - 105) H 02/28/19 11:27 Calcium 9.1 mg/dL (8.6-10.3) 02/28/19 04:10 Total Bilirubin 0.5 mg/dL (0.3-1.0) 02/28/19 04:10 Direct Bilirubin 0.00 mg/dL (0.0-0.2) 02/22/19 17:50 AST 25 U/L (13-39) 02/28/19 04:10 ALT 30 U/L (7-52) 02/28/19 04:10 Alkaline Phosphatase 92 U/L (34-104) 02/28/19 04:10 Ammonia 54 umol/L (16-53) H 02/28/19 04:10 Total Protein 6.6 gm/dL (6.0-8.3) 02/28/19 04:10 Albumin 3.6 gm/dL (4.2-5.5) L 02/28/19 04:10 Globulin 3.0 gm/dL 02/28/19 04:10 Albumin/Globulin Ratio 1.2 (1.0-1.8) 02/28/19 04:10 Amylase 39 U/L (29-103) 02/22/19 17:50 Lipase 21 U/L (11-82) 02/22/19 17:50 Blood Type O NEGATIVE 02/25/19 06:00 Antibody Screen NEGATIVE 02/25/19 06:00 - Physical Exam Vitals and I&O: Vital Signs Temp 99.0 F 02/28/19 10:00 Pulse 112 02/28/19 13:03 Resp 12 02/28/19 10:00 BP 196/103 02/28/19 12:58 Pulse Ox 100 02/28/19 13:03 Intake & Output 02/27/19 02/28/19 02/28/19 18:59 06:59 18:59 Intake Total 2385.280 5746 Output Total 1460 Balance 1016.254 -410 Weight (lbs) 153 lb 1.6 oz Intake: Intake, IV Amount 5871.534 2095 Propofol 1,000 mg In 100 16.254 ml @ Per Protocol IV TITR [facility] Rx#:[id number] Sodium Chloride 0.9% 1, 1000 1000 000 ml @ 100 mls/hr IV . Q10H [facility] Rx#:[id number] cefTRIAXone 1 gm In 50 Sodium Chloride 0.9% 50 ml @ 100 mls/hr IV Q24HR [facility] Rx#:[id number] Output: Drainage 110 left patrice 70 right patrice 40 Urine 1250 Stool 100 Other: Weight Source Bedscale Active Medications: Current Medications Acetaminophen (Tylenol Extra Strength) 1,000 mg PO Q4HR PRN PRN Reason: Pain (Moderate) Stop: 04/24/19 16:54 Acetaminophen (Tylenol) 650 mg PO DAILY [facility] Stop: 04/25/19 08:59 Last Admin: 02/28/19 09:16 Dose: Not Given Acetaminophen (Tylenol) 650 mg PO Q6H PRN PRN Reason: Fever Above 101 Stop: 04/27/19 14:22 Acetaminophen/Hydrocodone Bitart ([place] 5mg/325mg) 1 tab PO Q4H PRN PRN Reason: Pain (SEVERE) Stop: 04/27/19 14:22 Albuterol Sulfate (Albuterol 2.5mg/3ml Neb Ud) 2.5 mg HHN Q6H PRN PRN Reason: Shortness of Breath Albuterol/Ipratropium (Duoneb Neb) 3 ml HHN Q4HRT [facility] Stop: 04/28/19 14:59 Last Admin: 02/28/19 10:47 Dose: 3 ml Amitriptyline HCl (Elavil) 50 mg PO HS [facility] Stop: 04/24/19 20:59 Last Admin: 02/27/19 21:00 Dose: Not Given Ascorbic Acid (Vitamin C) 500 mg PO DAILY [facility] Stop: 04/25/19 08:59 Last Admin: 02/28/19 09:16 Dose: Not Given Aspirin (Aspirin Chewable) 81 mg PO DAILY [facility] Stop: 04/25/19 08:59 Last Admin: 02/28/19 09:16 Dose: Not Given Baclofen (Lioresal) 10 mg PO Q8H [facility] Stop: 04/24/19 16:59 Last Admin: 02/28/19 09:16 Dose: Not Given Bandage/Support Products (Hydrogel) 1 appl TP PRN PRN PRN Reason: PRESSURE WOUND CLEANSE Stop: 04/24/19 16:54 Budesonide (Pulmicort) 0.5 mg HHN BIDRT [facility] Stop: 04/25/19 18:59 Last Admin: 02/28/19 06:36 Dose: 0.5 mg [place] Oil/[place] Balsam/Trypsin (Venelex) 1 appl TP DAILY [facility] Stop: 04/24/19 16:29 Last Admin: 02/28/19 10:54 Dose: 1 appl Chlorhexidine Gluconate (Peridex) 15 ml MM 08,1999 [facility] Stop: 04/27/19 19:59 Last Admin: 02/28/19 08:37 Dose: 15 ml Cholecalciferol (Vitamin D3) 1,000 iu PO DAILY [facility] Stop: 04/25/19 08:59 Last Admin: 02/28/19 09:16 Dose: Not Given Docusate Sodium (Colace) 100 mg PO DAILY [facility] Stop: 04/25/19 08:59 Last Admin: 02/28/19 09:16 Dose: Not Given Duloxetine HCl (Cymbalta) 30 mg PO DAILY [facility] Stop: 04/26/19 08:59 Last Admin: 02/28/19 09:16 Dose: Not Given Hydralazine HCl (Apresoline 20 Mg/Ml) 10 mg IV Q4H PRN PRN Reason: HYPERTENSIVE Stop: 04/29/19 03:22 Last Admin: 02/28/19 12:58 Dose: 10 mg Hydromorphone HCl (Dilaudid) 2 mg IVP Q4HR PRN PRN Reason: Abdominal Pain Stop: 04/23/19 21:45 Last Admin: 02/28/19 10:53 Dose: 2 mg Ceftriaxone Sodium 1 gm/ (Sodium Chloride) 50 mls @ 100 mls/hr IV Q24HR [facility] Stop: 04/23/19 21:29 Last Infusion: 02/27/19 22:10 Dose: Infused Sodium Chloride (Nacl 0.9%) 1,000 mls @ 100 mls/hr IV .Q10H [facility] Stop: 04/27/19 14:29 Last Admin: 02/28/19 03:33 Dose: 100 mls/hr Insulin Human Lispro (Humalog Insulin Sliding Scale) 0 units SUBQ ACHS [facility]; Protocol Stop: 04/24/19 07:29 Last Admin: 02/28/19 12:02 Dose: Not Given Lisinopril (Zestril) 10 mg PO DAILY [facility] Stop: 04/25/19 08:59 Last Admin: 02/28/19 09:16 Dose: Not Given Lorazepam (Ativan) 1 mg IVP Q4HR PRN; Protocol PRN Reason: Agitation Stop: 04/29/19 03:18 Last Admin: 02/28/19 12:58 Dose: 1 mg Magnesium Hydroxide (Milk Of Magnesia) 30 ml PO HS PRN PRN Reason: Constipation Stop: 04/24/19 16:54 Mupirocin (Bactroban Oint) 1 appl NS BID [facility] Stop: 03/01/19 17:01 Last Admin: 02/28/19 10:54 Dose: 1 appl Neomycin Sulfate (Neomycin) 1,000 mg PO Q6HR [facility] Stop: 04/27/19 00:00 Last Admin: 02/28/19 12:04 Dose: Not Given Pregabalin (Lyrica) 150 mg PO BID [facility] Stop: 04/24/19 16:59 Last Admin: 02/28/19 10:53 Dose: Not Given General: alert HEENT: NC/AT, PERRLA Neck: Supple Cardiovascular: RRR, Normal S1, Normal S2, without murmur Abdomen: distended Extremities: excoriation Neurological: alert - Procedures Procedures: Procedures Procedure Code Date EXCISION OF RIGHT PELVIC BONE, OPEN APPROACH [id number] 10/03/18 EXCISION OF RIGHT UPPER FEMUR, OPEN APPROACH [id number] 07/25/18 INSPECTION OF LOWER INTESTINAL TRACT, ENDO [id number] 05/20/18 REPAIR ABDOMINAL WALL, OPEN APPROACH [id number] 07/25/18 Internal Medicine Assmt/Plan - Assessment Assessment: abd pain 2/2 possible partial incarceration of small bowel loops s/p exploratory laparotomy placement of biologic graft (acell) repair of paracolostomy hernia bilateral aka fecal impaction leukocytosis mild protein calorie malnutrition dm dyslipidemia right hip pressure ulcer - Plan Plan: possible extubation continue ivabx am labs pain mgmt continue current plan of care Nutritional Asmnt/Malnutr-PDOC - Dietary Evaluation Malnutrition Findings (Please click <Entered> for more info): Nutritional Asmnt/Malnutrition Start: 02/26/19 15: 22 Text: Status: Complete Freq: Protocol: Document 02/26/19 15:22 LCHENG (Rec: 02/26/19 15:54 LCKRISTIG [email or web address]) Nutritional Asmnt/Malnutrition Patient General Information Nutritional Screening Moderate Risk Diagnosis abd pain Pertinent Medical Hx/Surgical Hx DM2, dyslipidemia, hip ulcer, bi AKA, colostomy Subjective Information Pt was in OR for surgical repair of hernia at time of visit, transfered to ICU after surgery. On propofol and vent . adj BMI for bi AKA is 21.9 ( normal). Current Diet Order/ Nutrition Support NPO Pertinent Medications vit C, vit D3, colace, humalog , propofol, nacl 0.9% Pertinent Labs 02/26 Glucose 108, POC 82-149 Nutritional Hx/Data Height 6 ft Height (Calculated Centimeters) 182.9 Current Weight (lbs) 130 lb Weight (Calculated Kilograms) 59.0 Weight (Calculated Grams) 45887.0 [place] Body Weight 178 Body Mass Index (BMI) 17.6 Weight Status Underweight GI Symptoms GI Symptoms None Last BM 4/4 Difficult in: None Skin Integrity/Comment: burn to left medial finger, scar to medial abdomen and left buttocks, pressure ulcer to right buttocks Current %PO Negligible < 25% Estimated Nutritional Goals BEE in Kcals: Using Current wt Calories/Kcals/Kg 30-35 Kcals Calculated 0689-6146 Protein: Using Current wt Protein g/k.2-1.4 Protein Calculated 71-83 Fluid: ml 1770-2065ml (1ml/kcal) Nutritional Problem 1. Problem Problem increased nutrition needs Etiology impaired skin integrity Signs/Symptoms: pressure ulcer, s/p surgery Malnutrition Alert Is there a minimum of two criteria No selected? Query Text:Check all the applicable criteria. A minimum of two criteria are recommended for diagnosis of either severe or non-severe malnutrition. Malnutrition Related to Morbid Obesity Malnutrition related to morbid obesity No Intervention/Recommendation Comments 1. Advance diet when medically appropriate and add Carlos BID for wound healing once diet advanced. 2. Monitor NPO status, wt, labs and skin integrity 3. F/U as high risk in 2-3 days Expected Outcomes/Goals Expected Outcomes/Goals 1. PO intake to meet at least 75% of nutritional needs. 2. Wt stability, skin to remain intact, labs to approach WNL.
--- NOTE | 2019-02-28 17:54 | Progress Notes ---
DATE: 02/28/2019 PULMONARY/CRITICAL CARE PROGRESS NOTE PROBLEM LIST: 1. Postoperative respiratory failure, question chronic obstructive pulmonary disease. 2. Previous history of bilateral leg amputation. 3. History of previous colostomy. SYMPTOMS: The patient is sleepy, arousable, currently on a CPAP with pressure support 50%. No specific new symptomatology. PHYSICAL EXAMINATION: VITAL SIGNS: The patient's temperature is 98.7, blood pressure is 147/80, saturation is 97 50%. NECK: Veins not visualized. CHEST: Shows clear with diminished air entry. HEART: Regular. ABDOMEN: With multiple scars. Otherwise, unremarkable. LABORATORY DATA: The patient's chest x-ray shows ____ with some basal atelectasis in the right side, otherwise does not seem to have any acute changes. IMPRESSION: The patient is clinically stable. PLANS AND SUGGESTIONS: We will go ahead and extubate the patient. Routine post-procedure, post-extubation orders will be written, etc. and go from there. [facility]# [id number]
--- NOTE | 2019-02-28 18:10 | General Progress Note ---
Subjective - Review of Systems Service Date: 02/28/19 Subjective: patient extubated wants to eat right away will have to pass gas in the colostomy bag first wound appear good at this time vitals good Objective - Results Result Diagrams: 02/28/19 04:10 02/28/19 04:10 Recent Labs: Laboratory Last Values WBC 15.2 Th/cmm (4.8-10.8) H 02/28/19 04:10 RBC 4.83 Mil/cmm (4.30-5.70) 02/28/19 04:10 Hgb 13.0 gm/dL (12-16) 02/28/19 04:10 Hct 40.7 % (41.0-60) L 02/28/19 04:10 MCV 84.3 fl (80-99) 02/28/19 04:10 MCH 26.9 pg (26.0-30.0) 02/28/19 04:10 MCHC Differential 31.9 pg (28.0-36.0) 02/28/19 04:10 RDW 15.5 % (11.5-20.0) 02/28/19 04:10 Plt Count 246 Th/cmm (150-400) 02/28/19 04:10 MPV 8.4 fl 02/28/19 04:10 Neutrophils % 87.0 % (40.0-80.0) H 02/28/19 04:10 Band Neutrophils % 1 % (0-10) 02/27/19 04:50 Lymphocytes % 4.6 % (20.0-50.0) L 02/28/19 04:10 Monocytes % 8.1 % (2.0-10.0) 02/28/19 04:10 Eosinophils % 0.2 % (0.0-5.0) 02/28/19 04:10 Basophils % 0.1 % (0.0-2.0) 02/28/19 04:10 Neutrophils (Manual) 85 % (40-80) H 02/28/19 04:10 Lymphocytes 7 % (20-50) L 02/28/19 04:10 Monocytes 8 % (2-10) 02/28/19 04:10 Eosinophils 0 % (0-5) 02/27/19 04:50 Basophils 0 % (0-3) 02/27/19 04:50 Platelet Estimate ADEQUATE (NORMAL) 02/27/19 04:50 PT 10.0 SECONDS (9.5-11.5) 02/25/19 06:00 INR 0.96 (0.5-1.4) 02/25/19 06:00 PTT (Actin FS) 31.5 SECONDS (26.0-38.0) 02/25/19 06:00 Specimen Source Arterial 02/28/19 09:50 Sample Site Left Radial 02/28/19 09:50 pH 7.390 (7.35-7.45) 02/28/19 09:50 pCO2 34.6 mmHg (35.0-45.0) L 02/28/19 09:50 pO2 135.2 mmHg (80.0-100.0) H 02/28/19 09:50 HCO3 20.5 mEq/L (20.0-26.0) 02/28/19 09:50 Base Excess -3.6 mEq/L (-3.0-3.0) L 02/28/19 09:50 O2 Saturation 98.7 % (92.0-100.0) 02/28/19 09:50 Steven Test Positive 02/28/19 09:50 Vent Rate NA 02/28/19 09:50 Inspired O2 50 02/28/19 09:50 Tidal Volume NA 02/28/19 09:50 PEEP 5 02/28/19 09:50 Pressure (ins/psv/peep) 10 02/28/19 09:50 Critical Value JG 02/28/19 09:50 Sodium 146 mEq/L (136-145) H 02/28/19 04:10 Potassium 4.2 mEq/L (3.5-5.1) 02/28/19 04:10 Chloride 112 mEq/L (98-107) H 02/28/19 04:10 Carbon Dioxide 21.1 mEq/L (21.0-31.0) 02/28/19 04:10 Anion Gap 17.1 (7.0-16.0) H 02/28/19 04:10 BUN 10 mg/dL (7-25) 02/28/19 04:10 Creatinine 0.7 mg/dL (0.7-1.3) 02/28/19 04:10 Est GFR ( Amer) > 60.0 ml/min (>90) 02/28/19 04:10 Est GFR (Non-Af Amer) > 60.0 ml/min 02/28/19 04:10 BUN/Creatinine Ratio 14.3 02/28/19 04:10 Glucose 147 mg/dL (70-105) H 02/28/19 04:10 POC Glucose 151 MG/DL (70 - 105) H 02/28/19 17:13 Calcium 9.1 mg/dL (8.6-10.3) 02/28/19 04:10 Total Bilirubin 0.5 mg/dL (0.3-1.0) 02/28/19 04:10 Direct Bilirubin 0.00 mg/dL (0.0-0.2) 02/22/19 17:50 AST 25 U/L (13-39) 02/28/19 04:10 ALT 30 U/L (7-52) 02/28/19 04:10 Alkaline Phosphatase 92 U/L (34-104) 02/28/19 04:10 Ammonia 54 umol/L (16-53) H 02/28/19 04:10 Total Protein 6.6 gm/dL (6.0-8.3) 02/28/19 04:10 Albumin 3.6 gm/dL (4.2-5.5) L 02/28/19 04:10 Globulin 3.0 gm/dL 02/28/19 04:10 Albumin/Globulin Ratio 1.2 (1.0-1.8) 02/28/19 04:10 Amylase 39 U/L (29-103) 02/22/19 17:50 Lipase 21 U/L (11-82) 02/22/19 17:50 Blood Type O NEGATIVE 02/25/19 06:00 Antibody Screen NEGATIVE 02/25/19 06:00 - Physical Exam Vitals and I&O: Vital Signs Temp 98.7 F 02/28/19 16:00 Pulse 113 02/28/19 17:22 Resp 11 02/28/19 16:00 BP 183/83 02/28/19 17:22 Pulse Ox 99 02/28/19 17:00 Intake & Output 02/27/19 02/28/19 02/28/19 18:59 06:59 18:59 Intake Total 8700.356 8729 1000 Output Total 1460 Balance 1016.254 -410 1000 Weight (lbs) 153 lb 1.6 oz Intake: Intake, IV Amount 5025.423 1286 1000 Propofol 1,000 mg In 100 16.254 ml @ Per Protocol IV TITR [facility] Rx#:[id number] Sodium Chloride 0.9% 1, 1000 1000 1000 000 ml @ 100 mls/hr IV . Q10H [facility] Rx#:[id number] cefTRIAXone 1 gm In 50 Sodium Chloride 0.9% 50 ml @ 100 mls/hr IV Q24HR [facility] Rx#:[id number] Output: Drainage 110 left patrice 70 right patrice 40 Urine 1250 Stool 100 Other: Weight Source Bedscale Active Medications: Current Medications Acetaminophen (Tylenol Extra Strength) 1,000 mg PO Q4HR PRN PRN Reason: Pain (Moderate) Stop: 04/24/19 16:54 Acetaminophen (Tylenol) 650 mg PO DAILY [facility] Stop: 04/25/19 08:59 Last Admin: 02/28/19 09:16 Dose: Not Given Acetaminophen (Tylenol) 650 mg PO Q6H PRN PRN Reason: Fever Above 101 Stop: 04/27/19 14:22 Acetaminophen/Hydrocodone Bitart ([place] 5mg/325mg) 1 tab PO Q4H PRN PRN Reason: Pain (SEVERE) Stop: 04/27/19 14:22 Albuterol Sulfate (Albuterol 2.5mg/3ml Neb Ud) 2.5 mg HHN Q6H PRN PRN Reason: Shortness of Breath Albuterol/Ipratropium (Duoneb Neb) 3 ml HHN Q4HRT [facility] Stop: 04/28/19 14:59 Last Admin: 02/28/19 14:32 Dose: 3 ml Amitriptyline HCl (Elavil) 50 mg PO HS [facility] Stop: 04/24/19 20:59 Last Admin: 02/27/19 21:00 Dose: Not Given Ascorbic Acid (Vitamin C) 500 mg PO DAILY [facility] Stop: 04/25/19 08:59 Last Admin: 02/28/19 09:16 Dose: Not Given Aspirin (Aspirin Chewable) 81 mg PO DAILY [facility] Stop: 04/25/19 08:59 Last Admin: 02/28/19 09:16 Dose: Not Given Baclofen (Lioresal) 10 mg PO Q8H [facility] Stop: 04/24/19 16:59 Last Admin: 02/28/19 17:15 Dose: Not Given Bandage/Support Products (Hydrogel) 1 appl TP PRN PRN PRN Reason: PRESSURE WOUND CLEANSE Stop: 04/24/19 16:54 Budesonide (Pulmicort) 0.5 mg HHN BIDRT [facility] Stop: 04/25/19 18:59 Last Admin: 02/28/19 06:36 Dose: 0.5 mg [place] Oil/[place] Balsam/Trypsin (Venelex) 1 appl TP DAILY [facility] Stop: 04/24/19 16:29 Last Admin: 02/28/19 10:54 Dose: 1 appl Chlorhexidine Gluconate (Peridex) 15 ml MM 08,1999 [facility] Stop: 04/27/19 19:59 Last Admin: 02/28/19 08:37 Dose: 15 ml Cholecalciferol (Vitamin D3) 1,000 iu PO DAILY [facility] Stop: 04/25/19 08:59 Last Admin: 02/28/19 09:16 Dose: Not Given Docusate Sodium (Colace) 100 mg PO DAILY [facility] Stop: 04/25/19 08:59 Last Admin: 02/28/19 09:16 Dose: Not Given Duloxetine HCl (Cymbalta) 30 mg PO DAILY [facility] Stop: 04/26/19 08:59 Last Admin: 02/28/19 09:16 Dose: Not Given Hydralazine HCl (Apresoline 20 Mg/Ml) 10 mg IV Q4H PRN PRN Reason: HYPERTENSIVE Stop: 04/29/19 03:22 Last Admin: 02/28/19 17:22 Dose: 10 mg Hydromorphone HCl (Dilaudid) 2 mg IVP Q4HR PRN PRN Reason: Abdominal Pain Stop: 04/23/19 21:45 Last Admin: 02/28/19 15:49 Dose: 2 mg Ceftriaxone Sodium 1 gm/ (Sodium Chloride) 50 mls @ 100 mls/hr IV Q24HR [facility] Stop: 04/23/19 21:29 Last Infusion: 02/27/19 22:10 Dose: Infused Sodium Chloride (Nacl 0.9%) 1,000 mls @ 100 mls/hr IV .Q10H [facility] Stop: 04/27/19 14:29 Last Admin: 02/28/19 16:48 Dose: 100 mls/hr Insulin Human Lispro (Humalog Insulin Sliding Scale) 0 units SUBQ ACHS [facility]; Protocol Stop: 04/24/19 07:29 Last Admin: 02/28/19 17:15 Dose: Not Given Lisinopril (Zestril) 10 mg PO DAILY [facility] Stop: 04/25/19 08:59 Last Admin: 02/28/19 09:16 Dose: Not Given Lorazepam (Ativan) 1 mg IVP Q4HR PRN; Protocol PRN Reason: Agitation Stop: 04/29/19 03:18 Last Admin: 02/28/19 17:22 Dose: 1 mg Magnesium Hydroxide (Milk Of Magnesia) 30 ml PO HS PRN PRN Reason: Constipation Stop: 04/24/19 16:54 Mupirocin (Bactroban Oint) 1 appl NS BID [facility] Stop: 03/01/19 17:01 Last Admin: 02/28/19 17:24 Dose: 1 appl Neomycin Sulfate (Neomycin) 1,000 mg PO Q6HR [facility] Stop: 04/27/19 00:00 Last Admin: 02/28/19 17:15 Dose: Not Given Pregabalin (Lyrica) 150 mg PO BID [facility] Stop: 04/24/19 16:59 Last Admin: 02/28/19 17:14 Dose: Not Given - Procedures Procedures: Procedures Procedure Code Date EXCISION OF RIGHT PELVIC BONE, OPEN APPROACH [id number] 10/03/18 EXCISION OF RIGHT UPPER FEMUR, OPEN APPROACH [id number] 07/25/18 INSPECTION OF LOWER INTESTINAL TRACT, ENDO [id number] 05/20/18 REPAIR ABDOMINAL WALL, OPEN APPROACH [id number] 07/25/18 Assessment/Plan - Problem List Patient Problems: All Active Problems ABDOMINAL PAIN, HERNIA RECURRENCE (Acute) - Assessment Assessment: post op day 2 extubated today doing well - Plan Plan: continue to monitor gi function and advance diet only when able to pass gas in the colostomy starting with clear fluids Nutritional Asmnt/Malnutr-PDOC - Dietary Evaluation Malnutrition Findings (Please click <Entered> for more info): Nutritional Asmnt/Malnutrition Start: 02/26/19 15: 22 Text: Status: Complete Freq: Protocol: Document 02/26/19 15:22 JUNIOR (Rec: 02/26/19 15:54 JUNIOR [email or web address]) Nutritional Asmnt/Malnutrition Patient General Information Nutritional Screening Moderate Risk Diagnosis abd pain Pertinent Medical Hx/Surgical Hx DM2, dyslipidemia, hip ulcer, bi AKA, colostomy Subjective Information Pt was in OR for surgical repair of hernia at time of visit, transfered to ICU after surgery. On propofol and vent . adj BMI for bi AKA is 21.9 ( normal). Current Diet Order/ Nutrition Support NPO Pertinent Medications vit C, vit D3, colace, humalog , propofol, nacl 0.9% Pertinent Labs 4/5 Glucose 108, POC 82-149 Nutritional Hx/Data Height 6 ft Height (Calculated Centimeters) 182.9 Current Weight (lbs) 130 lb Weight (Calculated Kilograms) 59.0 Weight (Calculated Grams) 87938.0 Krypton Body Weight 178 Body Mass Index (BMI) 17.6 Weight Status Underweight GI Symptoms GI Symptoms None Last BM 4/4 Difficult in: None Skin Integrity/Comment: burn to left medial finger, scar to medial abdomen and left buttocks, pressure ulcer to right buttocks Current %PO Negligible < 25% Estimated Nutritional Goals BEE in Kcals: Using Current wt Calories/Kcals/Kg 30-35 Kcals Calculated 1313-0418 Protein: Using Current wt Protein g/k.2-1.4 Protein Calculated 71-83 Fluid: ml 1770-2065ml (1ml/kcal) Nutritional Problem 1. Problem Problem increased nutrition needs Etiology impaired skin integrity Signs/Symptoms: pressure ulcer, s/p surgery Malnutrition Alert Is there a minimum of two criteria No selected? Query Text:Check all the applicable criteria. A minimum of two criteria are recommended for diagnosis of either severe or non-severe malnutrition. Malnutrition Related to Morbid Obesity Malnutrition related to morbid obesity No Intervention/Recommendation Comments 1. Advance diet when medically appropriate and add Carlos BID for wound healing once diet advanced. 2. Monitor NPO status, wt, labs and skin integrity 3. F/U as high risk in 2-3 days Expected Outcomes/Goals Expected Outcomes/Goals 1. PO intake to meet at least 75% of nutritional needs. 2. Wt stability, skin to remain intact, labs to approach WNL.
[2019-02-28] MEDS: cefTRIAXone 1 GM in Sodium Chloride 0.9% 50 ML IV SCH (20:36)
[2019-03-01] MEDS: HYDROmorphone 2 mg/mL 1mL Vial IVP PRN ×6 (01:20→20:53)
[2019-03-01] MEDS: Albuterol/Ipratropium Neb 3 ML AERS HHN SCH ×7 (02:22→23:58)
[2019-03-01 05:27] LABS: % BASOPHILS 0.3 % (0.0-2.0); % EOSINOPHILS 0.2 % (0.0-5.0); % LYMPHOCYTES 8.2 % (20.0-50.0); % MONOCYTES 10.3 % (2.0-10.0); HEMATOCRIT 37.2 % (41.0-60); HEMOGLOBIN 12.2 gm/dL (12-16); MEAN CELL VOLUME 84.6 fl (80-99); MEAN CORPUSCULAR HEMOGLOBIN 27.8 pg (26.0-30.0); MEAN CORPUSCULAR HGB CONC 32.8 pg (28.0-36.0); MEAN PLATELET VOLUME 8.1 fl; MONOCYTE ABSOLUTE 1.3 Th/cmm (0.3-1.0); NEUTROPHILE ABSOLUTE 10.1 Th/cmm (1.8-8.0); PLATELET COUNT 251 Th/cmm (150-400); RED BLOOD COUNT 4.39 Mil/cmm (4.30-5.70); WHITE BLOOD COUNT 12.4 Th/cmm (4.8-10.8)
[2019-03-01 05:47] LABS: ALB/GLOB RATIO 1.3 (1.0-1.8); ALBUMIN 3.4 gm/dL (4.2-5.5); ALKALINE PHOSPHATASE 77 U/L (34-104); ANION GAP 12.2 (7.0-16.0); BILIRUBIN,TOTAL 0.5 mg/dL (0.3-1.0); BUN - UREA NITROGEN 9 mg/dL (7-25); CALCIUM SERUM 8.9 mg/dL (8.6-10.3); CARBON DIOXIDE 24.1 mEq/L (21.0-31.0); CHLORIDE 114 mEq/L (98-107); CREATININE - SERUM 0.6 mg/dL (0.7-1.3); GFR AFRICAN-AMERICAN > 60.0 ml/min (>90); GFR NON AFRICAN-AMERICAN > 60.0 ml/min; GLUCOSE 148 mg/dL (70-105); POTASSIUM SERUM 3.3 mEq/L (3.5-5.1); SGOT 15 U/L (13-39); SGPT/ALT 21 U/L (7-52); SODIUM SERUM 147 mEq/L (136-145); TOTAL PROTEIN,SERUM 6.1 gm/dL (6.0-8.3)
[2019-03-01] MEDS: Budesonide 0.5 Mg/2 mL Ud HHN SCH ×2 (07:00→19:40)
[2019-03-01] MEDS: INSULIN LISPRO SLIDING SCALE 100 UNITS/ML UNIT SUBQ SCH ×4 (07:05→21:10)
--- NOTE | 2019-03-01 08:07 | Diagnostic Imaging Report ---
Portable chest x-ray History: Shortness of breath Allowing for portable technique the heart size is normal. No focal pulmonary parenchymal processes. No hilar or mediastinal abnormalities. Impression: No acute abnormalities.
[2019-03-01 09:02] LABS: PaCO2 37.5 mmHg (35.0-45.0); PaO2 55.7 mmHg (80.0-100.0); pH 7.426 (7.35-7.45); sO2c 89.9 % (92.0-100.0)
[2019-03-01] MEDS: Multivitamin w/ Minerals Tab PO SCH (09:31)
[2019-03-01] MEDS: Aspirin 81mg Chewable Tab PO SCH (09:31)
--- NOTE | 2019-03-01 12:26 | Internal Medicine Prog Note ---
Internal Medicine Subjective - Subjective Service Date: 03/01/19 (S/P EXTUBATION) Patient is:: awake, arousable, in bed, denies any new complaints Internal Medicine Objective - Results Result Diagrams: 03/01/19 05:10 03/01/19 05:10 Recent Labs: Laboratory Last Values WBC 12.4 Th/cmm (4.8-10.8) H 03/01/19 05:10 RBC 4.39 Mil/cmm (4.30-5.70) 03/01/19 05:10 Hgb 12.2 gm/dL (12-16) 03/01/19 05:10 Hct 37.2 % (41.0-60) L 03/01/19 05:10 MCV 84.6 fl (80-99) 03/01/19 05:10 MCH 27.8 pg (26.0-30.0) 03/01/19 05:10 MCHC Differential 32.8 pg (28.0-36.0) 03/01/19 05:10 RDW 16.0 % (11.5-20.0) 03/01/19 05:10 Plt Count 251 Th/cmm (150-400) 03/01/19 05:10 MPV 8.1 fl 03/01/19 05:10 Neutrophils % 81.0 % (40.0-80.0) H 03/01/19 05:10 Band Neutrophils % 1 % (0-10) 02/27/19 04:50 Lymphocytes % 8.2 % (20.0-50.0) L 03/01/19 05:10 Monocytes % 10.3 % (2.0-10.0) H 03/01/19 05:10 Eosinophils % 0.2 % (0.0-5.0) 03/01/19 05:10 Basophils % 0.3 % (0.0-2.0) 03/01/19 05:10 Neutrophils (Manual) 85 % (40-80) H 02/28/19 04:10 Lymphocytes 7 % (20-50) L 02/28/19 04:10 Monocytes 8 % (2-10) 02/28/19 04:10 Eosinophils 0 % (0-5) 02/27/19 04:50 Basophils 0 % (0-3) 02/27/19 04:50 Platelet Estimate ADEQUATE (NORMAL) 02/27/19 04:50 PT 10.0 SECONDS (9.5-11.5) 02/25/19 06:00 INR 0.96 (0.5-1.4) 02/25/19 06:00 PTT (Actin FS) 31.5 SECONDS (26.0-38.0) 02/25/19 06:00 Specimen Source Arterial 03/01/19 09:00 Sample Site RB 03/01/19 09:00 pH 7.426 (7.35-7.45) 03/01/19 09:00 pCO2 37.5 mmHg (35.0-45.0) 03/01/19 09:00 pO2 55.7 mmHg (80.0-100.0) L 03/01/19 09:00 HCO3 24.1 mEq/L (20.0-26.0) 03/01/19 09:00 Base Excess 0.1 mEq/L (-3.0-3.0) 03/01/19 09:00 O2 Saturation 89.9 % (92.0-100.0) L 03/01/19 09:00 Steven Test NA 03/01/19 09:00 Vent Rate N 03/01/19 09:00 Inspired O2 21 03/01/19 09:00 Tidal Volume NA 03/01/19 09:00 PEEP NA 03/01/19 09:00 Pressure (ins/psv/peep) NA 03/01/19 09:00 Critical Value SH 03/01/19 09:00 Sodium 147 mEq/L (136-145) H 03/01/19 05:10 Potassium 3.3 mEq/L (3.5-5.1) L 03/01/19 05:10 Chloride 114 mEq/L (98-107) H 03/01/19 05:10 Carbon Dioxide 24.1 mEq/L (21.0-31.0) 03/01/19 05:10 Anion Gap 12.2 (7.0-16.0) 03/01/19 05:10 BUN 9 mg/dL (7-25) 03/01/19 05:10 Creatinine 0.6 mg/dL (0.7-1.3) L 03/01/19 05:10 Est GFR ( Amer) > 60.0 ml/min (>90) 03/01/19 05:10 Est GFR (Non-Af Amer) > 60.0 ml/min 03/01/19 05:10 BUN/Creatinine Ratio 15.0 03/01/19 05:10 Glucose 148 mg/dL (70-105) H 03/01/19 05:10 POC Glucose 146 MG/DL (70 - 105) H 03/01/19 11:16 Calcium 8.9 mg/dL (8.6-10.3) 03/01/19 05:10 Total Bilirubin 0.5 mg/dL (0.3-1.0) 03/01/19 05:10 Direct Bilirubin 0.20 mg/dL (0.0-0.2) 03/01/19 05:10 AST 15 U/L (13-39) 03/01/19 05:10 ALT 21 U/L (7-52) 03/01/19 05:10 Alkaline Phosphatase 77 U/L (34-104) 03/01/19 05:10 Ammonia 52 umol/L (16-53) 03/01/19 05:10 Total Protein 6.1 gm/dL (6.0-8.3) 03/01/19 05:10 Albumin 3.4 gm/dL (4.2-5.5) L 03/01/19 05:10 Globulin 2.7 gm/dL 03/01/19 05:10 Albumin/Globulin Ratio 1.3 (1.0-1.8) 03/01/19 05:10 Amylase 39 U/L (29-103) 02/22/19 17:50 Lipase 21 U/L (11-82) 02/22/19 17:50 Blood Type O NEGATIVE 02/25/19 06:00 Antibody Screen NEGATIVE 02/25/19 06:00 - Physical Exam Vitals and I&O: Vital Signs Temp 98.3 F 03/01/19 08:00 Pulse 87 03/01/19 10:51 Resp 13 03/01/19 10:51 BP 155/83 03/01/19 10:00 Pulse Ox 96 03/01/19 10:51 Intake & Output 02/28/19 03/01/19 03/01/19 18:59 06:59 18:59 Intake Total 1000 273.333 0 Output Total 525 60 Balance 475 273.333 -60 Weight (lbs) 153 lb 3.2 oz 149 lb 1.6 oz Intake: Intake, IV Amount 1000 273.333 Sodium Chloride 0.9% 1, 1000 273.333 000 ml @ 100 mls/hr IV . Q10H [facility] Rx#:[id number] Oral 0 0 Output: Drainage 75 60 left patrice 50 50 right patrice 25 10 Urine 450 Other: # Voids 3 # Bowel Movements 0 0 Weight Source Bedscale Bedscale Active Medications: Current Medications Acetaminophen (Tylenol Extra Strength) 1,000 mg PO Q4HR PRN PRN Reason: Pain (Moderate) Stop: 04/24/19 16:54 Acetaminophen (Tylenol) 650 mg PO DAILY [facility] Stop: 04/25/19 08:59 Last Admin: 03/01/19 09:32 Dose: Not Given Acetaminophen (Tylenol) 650 mg PO Q6H PRN PRN Reason: Fever Above 101 Stop: 04/27/19 14:22 Acetaminophen (Tylenol 650mg Supp) 650 mg RC Q4H PRN; Protocol PRN Reason: Fever > 101 Stop: 04/29/19 22:26 Acetaminophen/Hydrocodone Bitart ([place] 5mg/325mg) 1 tab PO Q4H PRN PRN Reason: Pain (SEVERE) Stop: 04/27/19 14:22 Albuterol Sulfate (Albuterol 2.5mg/3ml Neb Ud) 2.5 mg HHN Q6H PRN PRN Reason: Shortness of Breath Albuterol/Ipratropium (Duoneb Neb) 3 ml HHN Q4HRT [facility] Stop: 04/28/19 14:59 Last Admin: 03/01/19 10:51 Dose: Not Given Amitriptyline HCl (Elavil) 50 mg PO HS [facility] Stop: 04/24/19 20:59 Last Admin: 02/28/19 20:10 Dose: Not Given Ascorbic Acid (Vitamin C) 500 mg PO DAILY [facility] Stop: 04/25/19 08:59 Last Admin: 03/01/19 09:31 Dose: 500 mg Aspirin (Aspirin Chewable) 81 mg PO DAILY [facility] Stop: 04/25/19 08:59 Last Admin: 03/01/19 09:31 Dose: 81 mg Baclofen (Lioresal) 10 mg PO Q8H [facility] Stop: 04/24/19 16:59 Last Admin: 03/01/19 09:32 Dose: 10 mg Bandage/Support Products (Hydrogel) 1 appl TP PRN PRN PRN Reason: PRESSURE WOUND CLEANSE Stop: 04/24/19 16:54 Budesonide (Pulmicort) 0.5 mg HHN BIDRT [facility] Stop: 04/25/19 18:59 Last Admin: 03/01/19 07:00 Dose: 0.5 mg [place] Oil/[place] Balsam/Trypsin (Venelex) 1 appl TP DAILY [facility] Stop: 04/24/19 16:29 Last Admin: 02/28/19 10:54 Dose: 1 appl Cholecalciferol (Vitamin D3) 1,000 iu PO DAILY [facility] Stop: 04/25/19 08:59 Last Admin: 03/01/19 09:30 Dose: 1,000 iu Docusate Sodium (Colace) 100 mg PO DAILY [facility] Stop: 04/25/19 08:59 Last Admin: 03/01/19 09:31 Dose: 100 mg Duloxetine HCl (Cymbalta) 30 mg PO DAILY [facility] Stop: 04/26/19 08:59 Last Admin: 03/01/19 09:30 Dose: 30 mg Hydralazine HCl (Apresoline 20 Mg/Ml) 10 mg IV Q4H PRN PRN Reason: HYPERTENSIVE Stop: 04/29/19 03:22 Last Admin: 02/28/19 17:22 Dose: 10 mg Hydromorphone HCl (Dilaudid) 2 mg IVP Q4HR PRN PRN Reason: Abdominal Pain Stop: 04/23/19 21:45 Last Admin: 03/01/19 09:24 Dose: 2 mg Ceftriaxone Sodium 1 gm/ (Sodium Chloride) 50 mls @ 100 mls/hr IV Q24HR [facility] Stop: 04/23/19 21:29 Last Admin: 02/28/19 20:36 Dose: 100 mls/hr Sodium Chloride (Nacl 0.9%) 1,000 mls @ 100 mls/hr IV .Q10H [facility] Stop: 04/27/19 14:29 Last Infusion: 02/28/19 19:32 Dose: 100 mls/hr Insulin Human Lispro (Humalog Insulin Sliding Scale) 0 units SUBQ ACHS [facility]; Protocol Stop: 04/24/19 07:29 Last Admin: 03/01/19 11:47 Dose: Not Given Lisinopril (Zestril) 10 mg PO DAILY [facility] Stop: 04/25/19 08:59 Last Admin: 03/01/19 09:31 Dose: 10 mg Lorazepam (Ativan) 1 mg IVP Q4HR PRN; Protocol PRN Reason: Agitation Stop: 04/29/19 03:18 Last Admin: 03/01/19 04:51 Dose: 1 mg Magnesium Hydroxide (Milk Of Magnesia) 30 ml PO HS PRN PRN Reason: Constipation Stop: 04/24/19 16:54 Mupirocin (Bactroban Oint) 1 appl NS BID [facility] Stop: 03/01/19 17:01 Last Admin: 03/01/19 09:31 Dose: 1 appl Neomycin Sulfate (Neomycin) 1,000 mg PO Q6HR [facility] Stop: 04/27/19 00:00 Last Admin: 03/01/19 11:47 Dose: 1,000 mg Potassium Chloride (Klor-Con) 40 meq PO X1 ONE Stop: 03/01/19 13:01 Pregabalin (Lyrica) 150 mg PO BID [facility] Stop: 04/24/19 16:59 Last Admin: 03/01/19 09:30 Dose: 150 mg General: alert HEENT: NC/AT, PERRLA Neck: Supple Cardiovascular: RRR, Normal S1, Normal S2, without murmur Abdomen: distended Extremities: excoriation Neurological: alert - Procedures Procedures: Procedures Procedure Code Date EXCISION OF RIGHT PELVIC BONE, OPEN APPROACH [id number] 10/03/18 EXCISION OF RIGHT UPPER FEMUR, OPEN APPROACH [id number] 07/25/18 INSPECTION OF ABDOMINAL WALL, PERC ENDO APPROACH [id number] 02/22/19 INSPECTION OF LOWER INTESTINAL TRACT, ENDO [id number] 05/20/18 INTRODUCE ADHESION BARRIER IN PERITON CAV, OPEN [id number] 02/22/19 REPAIR ABDOMINAL WALL, OPEN APPROACH [id number] 07/25/18 RESPIRATORY VENTILATION, 24-96 CONSECUTIVE HOURS [id number] 02/22/19 SUPPLEMENT ABDOMINAL WALL WITH NONAUT SUB, OPEN APPROACH [id number] 02/22/19 Internal Medicine Assmt/Plan - Assessment Assessment: s/p extubation abd pain 2/2 possible partial incarceration of small bowel loops s/p exploratory laparotomy placement of biologic graft (acell) repair of paracolostomy hernia bilateral aka fecal impaction leukocytosis mild protein calorie malnutrition dm dyslipidemia right hip pressure ulcer - Plan Plan: continue ivabx am labs pain mgmt continue current plan of care Nutritional Asmnt/Malnutr-PDOC - Dietary Evaluation Malnutrition Findings (Please click <Entered> for more info): Nutritional Asmnt/Malnutrition Start: 02/26/19 15: 22 Text: Status: Complete Freq: Protocol: Document 02/26/19 15:22 LCKRISTIG (Rec: 02/26/19 15:54 [email or web address] Nutritional Asmnt/Malnutrition Patient General Information Nutritional Screening Moderate Risk Diagnosis abd pain Pertinent Medical Hx/Surgical Hx DM2, dyslipidemia, hip ulcer, bi AKA, colostomy Subjective Information Pt was in OR for surgical repair of hernia at time of visit, transfered to ICU after surgery. On propofol and vent . adj BMI for bi AKA is 21.9 ( normal). Current Diet Order/ Nutrition Support NPO Pertinent Medications vit C, vit D3, colace, humalog , propofol, nacl 0.9% Pertinent Labs 4/5 Glucose 108, POC 82-149 Nutritional Hx/Data Height 6 ft Height (Calculated Centimeters) 182.9 Current Weight (lbs) 130 lb Weight (Calculated Kilograms) 59.0 Weight (Calculated Grams) 99730.0 [place] Body Weight 178 Body Mass Index (BMI) 17.6 Weight Status Underweight GI Symptoms GI Symptoms None Last BM 4/4 Difficult in: None Skin Integrity/Comment: burn to left medial finger, scar to medial abdomen and left buttocks, pressure ulcer to right buttocks Current %PO Negligible < 25% Estimated Nutritional Goals BEE in Kcals: Using Current wt Calories/Kcals/Kg 30-35 Kcals Calculated 5193-8725 Protein: Using Current wt Protein g/k.2-1.4 Protein Calculated 71-83 Fluid: ml 1770-2065ml (1ml/kcal) Nutritional Problem 1. Problem Problem increased nutrition needs Etiology impaired skin integrity Signs/Symptoms: pressure ulcer, s/p surgery Malnutrition Alert Is there a minimum of two criteria No selected? Query Text:Check all the applicable criteria. A minimum of two criteria are recommended for diagnosis of either severe or non-severe malnutrition. Malnutrition Related to Morbid Obesity Malnutrition related to morbid obesity No Intervention/Recommendation Comments 1. Advance diet when medically appropriate and add [place] BID for wound healing once diet advanced. 2. Monitor NPO status, wt, labs and skin integrity 3. F/U as high risk in 2-3 days Expected Outcomes/Goals Expected Outcomes/Goals 1. PO intake to meet at least 75% of nutritional needs. 2. Wt stability, skin to remain intact, labs to approach WNL.
[2019-03-01] MEDS ORDERED: Potassium Chloride 20 mEq ER Tab PO ONE (13:00)
[2019-03-01] MEDS: Sodium Chloride 0.9% 1,000 ML IV SCH ×2 (13:03→17:09)
--- NOTE | 2019-03-01 13:05 | General Progress Note ---
Subjective - Review of Systems Service Date: 03/01/19 Subjective: Patient still complains of abdominal pain no nausea vomiting Objective - Results Result Diagrams: 03/01/19 05:10 03/01/19 05:10 Recent Labs: Laboratory Last Values WBC 12.4 Th/cmm (4.8-10.8) H 03/01/19 05:10 RBC 4.39 Mil/cmm (4.30-5.70) 03/01/19 05:10 Hgb 12.2 gm/dL (12-16) 03/01/19 05:10 Hct 37.2 % (41.0-60) L 03/01/19 05:10 MCV 84.6 fl (80-99) 03/01/19 05:10 MCH 27.8 pg (26.0-30.0) 03/01/19 05:10 MCHC Differential 32.8 pg (28.0-36.0) 03/01/19 05:10 RDW 16.0 % (11.5-20.0) 03/01/19 05:10 Plt Count 251 Th/cmm (150-400) 03/01/19 05:10 MPV 8.1 fl 03/01/19 05:10 Neutrophils % 81.0 % (40.0-80.0) H 03/01/19 05:10 Band Neutrophils % 1 % (0-10) 02/27/19 04:50 Lymphocytes % 8.2 % (20.0-50.0) L 03/01/19 05:10 Monocytes % 10.3 % (2.0-10.0) H 03/01/19 05:10 Eosinophils % 0.2 % (0.0-5.0) 03/01/19 05:10 Basophils % 0.3 % (0.0-2.0) 03/01/19 05:10 Neutrophils (Manual) 85 % (40-80) H 02/28/19 04:10 Lymphocytes 7 % (20-50) L 02/28/19 04:10 Monocytes 8 % (2-10) 02/28/19 04:10 Eosinophils 0 % (0-5) 02/27/19 04:50 Basophils 0 % (0-3) 02/27/19 04:50 Platelet Estimate ADEQUATE (NORMAL) 02/27/19 04:50 PT 10.0 SECONDS (9.5-11.5) 02/25/19 06:00 INR 0.96 (0.5-1.4) 02/25/19 06:00 PTT (Actin FS) 31.5 SECONDS (26.0-38.0) 02/25/19 06:00 Specimen Source Arterial 03/01/19 09:00 Sample Site RB 03/01/19 09:00 pH 7.426 (7.35-7.45) 03/01/19 09:00 pCO2 37.5 mmHg (35.0-45.0) 03/01/19 09:00 pO2 55.7 mmHg (80.0-100.0) L 03/01/19 09:00 HCO3 24.1 mEq/L (20.0-26.0) 03/01/19 09:00 Base Excess 0.1 mEq/L (-3.0-3.0) 03/01/19 09:00 O2 Saturation 89.9 % (92.0-100.0) L 03/01/19 09:00 Steven Test NA 03/01/19 09:00 Vent Rate N 03/01/19 09:00 Inspired O2 21 03/01/19 09:00 Tidal Volume NA 03/01/19 09:00 PEEP NA 03/01/19 09:00 Pressure (ins/psv/peep) NA 03/01/19 09:00 Critical Value SH 03/01/19 09:00 Sodium 147 mEq/L (136-145) H 03/01/19 05:10 Potassium 3.3 mEq/L (3.5-5.1) L 03/01/19 05:10 Chloride 114 mEq/L (98-107) H 03/01/19 05:10 Carbon Dioxide 24.1 mEq/L (21.0-31.0) 03/01/19 05:10 Anion Gap 12.2 (7.0-16.0) 03/01/19 05:10 BUN 9 mg/dL (7-25) 03/01/19 05:10 Creatinine 0.6 mg/dL (0.7-1.3) L 03/01/19 05:10 Est GFR ( Amer) > 60.0 ml/min (>90) 03/01/19 05:10 Est GFR (Non-Af Amer) > 60.0 ml/min 03/01/19 05:10 BUN/Creatinine Ratio 15.0 03/01/19 05:10 Glucose 148 mg/dL (70-105) H 03/01/19 05:10 POC Glucose 146 MG/DL (70 - 105) H 03/01/19 11:16 Calcium 8.9 mg/dL (8.6-10.3) 03/01/19 05:10 Total Bilirubin 0.5 mg/dL (0.3-1.0) 03/01/19 05:10 Direct Bilirubin 0.20 mg/dL (0.0-0.2) 03/01/19 05:10 AST 15 U/L (13-39) 03/01/19 05:10 ALT 21 U/L (7-52) 03/01/19 05:10 Alkaline Phosphatase 77 U/L (34-104) 03/01/19 05:10 Ammonia 52 umol/L (16-53) 03/01/19 05:10 Total Protein 6.1 gm/dL (6.0-8.3) 03/01/19 05:10 Albumin 3.4 gm/dL (4.2-5.5) L 03/01/19 05:10 Globulin 2.7 gm/dL 03/01/19 05:10 Albumin/Globulin Ratio 1.3 (1.0-1.8) 03/01/19 05:10 Amylase 39 U/L (29-103) 02/22/19 17:50 Lipase 21 U/L (11-82) 02/22/19 17:50 Blood Type O NEGATIVE 02/25/19 06:00 Antibody Screen NEGATIVE 02/25/19 06:00 - Physical Exam Vitals and I&O: Vital Signs Temp 98.2 F 03/01/19 12:00 Pulse 80 03/01/19 12:00 Resp 15 03/01/19 12:00 BP 140/79 03/01/19 12:00 Pulse Ox 92 03/01/19 12:00 Intake & Output 02/28/19 03/01/19 03/01/19 18:59 06:59 18:59 Intake Total 1000 273.333 0 Output Total 525 60 Balance 475 273.333 -60 Weight (lbs) 69.49 kg 67.631 kg Intake: Intake, IV Amount 1000 273.333 Sodium Chloride 0.9% 1, 1000 273.333 000 ml @ 100 mls/hr IV . Q10H [facility] Rx#:[id number] Oral 0 0 Output: Drainage 75 60 left patrice 50 50 right patrice 25 10 Urine 450 Other: # Voids 3 # Bowel Movements 0 0 Weight Source Bedscale Bedscale Active Medications: Current Medications Acetaminophen (Tylenol Extra Strength) 1,000 mg PO Q4HR PRN PRN Reason: Pain (Moderate) Stop: 04/24/19 16:54 Acetaminophen (Tylenol) 650 mg PO DAILY [facility] Stop: 04/25/19 08:59 Last Admin: 03/01/19 09:32 Dose: Not Given Acetaminophen (Tylenol) 650 mg PO Q6H PRN PRN Reason: Fever Above 101 Stop: 04/27/19 14:22 Acetaminophen (Tylenol 650mg Supp) 650 mg RC Q4H PRN; Protocol PRN Reason: Fever > 101 Stop: 04/29/19 22:26 Acetaminophen/Hydrocodone Bitart ([place] 5mg/325mg) 1 tab PO Q4H PRN PRN Reason: Pain (SEVERE) Stop: 04/27/19 14:22 Albuterol Sulfate (Albuterol 2.5mg/3ml Neb Ud) 2.5 mg HHN Q6H PRN PRN Reason: Shortness of Breath Albuterol/Ipratropium (Duoneb Neb) 3 ml HHN Q4HRT [facility] Stop: 04/28/19 14:59 Last Admin: 03/01/19 10:51 Dose: Not Given Amitriptyline HCl (Elavil) 50 mg PO HS [facility] Stop: 04/24/19 20:59 Last Admin: 02/28/19 20:10 Dose: Not Given Ascorbic Acid (Vitamin C) 500 mg PO DAILY [facility] Stop: 04/25/19 08:59 Last Admin: 03/01/19 09:31 Dose: 500 mg Aspirin (Aspirin Chewable) 81 mg PO DAILY [facility] Stop: 04/25/19 08:59 Last Admin: 03/01/19 09:31 Dose: 81 mg Baclofen (Lioresal) 10 mg PO Q8H [facility] Stop: 04/24/19 16:59 Last Admin: 03/01/19 09:32 Dose: 10 mg Bandage/Support Products (Hydrogel) 1 appl TP PRN PRN PRN Reason: PRESSURE WOUND CLEANSE Stop: 04/24/19 16:54 Budesonide (Pulmicort) 0.5 mg HHN BIDRT [facility] Stop: 04/25/19 18:59 Last Admin: 03/01/19 07:00 Dose: 0.5 mg [place] Oil/[place] Balsam/Trypsin (Venelex) 1 appl TP DAILY [facility] Stop: 04/24/19 16:29 Last Admin: 02/28/19 10:54 Dose: 1 appl Cholecalciferol (Vitamin D3) 1,000 iu PO DAILY [facility] Stop: 04/25/19 08:59 Last Admin: 03/01/19 09:30 Dose: 1,000 iu Docusate Sodium (Colace) 100 mg PO DAILY [facility] Stop: 04/25/19 08:59 Last Admin: 03/01/19 09:31 Dose: 100 mg Duloxetine HCl (Cymbalta) 30 mg PO DAILY [facility] Stop: 04/26/19 08:59 Last Admin: 03/01/19 09:30 Dose: 30 mg Hydralazine HCl (Apresoline 20 Mg/Ml) 10 mg IV Q4H PRN PRN Reason: HYPERTENSIVE Stop: 04/29/19 03:22 Last Admin: 02/28/19 17:22 Dose: 10 mg Hydromorphone HCl (Dilaudid) 2 mg IVP Q4HR PRN PRN Reason: Abdominal Pain Stop: 04/23/19 21:45 Last Admin: 03/01/19 12:58 Dose: 2 mg Ceftriaxone Sodium 1 gm/ (Sodium Chloride) 50 mls @ 100 mls/hr IV Q24HR [facility] Stop: 04/23/19 21:29 Last Admin: 02/28/19 20:36 Dose: 100 mls/hr Sodium Chloride (Nacl 0.9%) 1,000 mls @ 100 mls/hr IV .Q10H [facility] Stop: 04/27/19 14:29 Last Infusion: 02/28/19 19:32 Dose: 100 mls/hr Insulin Human Lispro (Humalog Insulin Sliding Scale) 0 units SUBQ ACHS [facility]; Protocol Stop: 04/24/19 07:29 Last Admin: 03/01/19 11:47 Dose: Not Given Lisinopril (Zestril) 10 mg PO DAILY [facility] Stop: 04/25/19 08:59 Last Admin: 03/01/19 09:31 Dose: 10 mg Lorazepam (Ativan) 1 mg IVP Q4HR PRN; Protocol PRN Reason: Agitation Stop: 04/29/19 03:18 Last Admin: 03/01/19 04:51 Dose: 1 mg Magnesium Hydroxide (Milk Of Magnesia) 30 ml PO HS PRN PRN Reason: Constipation Stop: 04/24/19 16:54 Mupirocin (Bactroban Oint) 1 appl NS BID [facility] Stop: 03/01/19 17:01 Last Admin: 03/01/19 09:31 Dose: 1 appl Neomycin Sulfate (Neomycin) 1,000 mg PO Q6HR [facility] Stop: 04/27/19 00:00 Last Admin: 03/01/19 11:47 Dose: 1,000 mg Potassium Chloride (Klor-Con) 40 meq PO X1 [facility] Stop: 03/01/19 13:01 Last Admin: 03/01/19 12:58 Dose: 40 meq Pregabalin (Lyrica) 150 mg PO BID [facility] Stop: 04/24/19 16:59 Last Admin: 03/01/19 09:30 Dose: 150 mg General: No acute distress HEENT: Mucous membr. moist/pink Neck: Supple, JVD, +2 carotid pulse wo bruit (flat) Cardiovascular: Normal S1, Normal S2, Systolic murmurs Lungs: Clear to auscultation, Normal air movement Abdomen: Bowel sounds, Soft, Tender, Other (scar from surgery) Extremities: Other (no pedal edema) Neurological: Strength at 5/5 X4 ext, Normal tone, Cranial nerves 3-12 NL, Reflexes 2+ - Procedures Procedures: Procedures Procedure Code Date EXCISION OF RIGHT PELVIC BONE, OPEN APPROACH [id number] 10/03/18 EXCISION OF RIGHT UPPER FEMUR, OPEN APPROACH [id number] 07/25/18 INSPECTION OF ABDOMINAL WALL, PERC ENDO APPROACH [id number] 02/22/19 INSPECTION OF LOWER INTESTINAL TRACT, ENDO [id number] 05/20/18 INTRODUCE ADHESION BARRIER IN PERITON CAV, OPEN [id number] 02/22/19 REPAIR ABDOMINAL WALL, OPEN APPROACH [id number] 07/25/18 RESPIRATORY VENTILATION, 24-96 CONSECUTIVE HOURS [id number] 02/22/19 SUPPLEMENT ABDOMINAL WALL WITH NONAUT SUB, OPEN APPROACH [id number] 02/22/19 Assessment/Plan - Problem List Patient Problems: All Active Problems ABDOMINAL PAIN, HERNIA RECURRENCE (Acute) - Assessment Assessment: Acute respiratory failure off ventilatory Ventral hernia repair Bilateral above-knee amputation Diabetes mellitus type 2 Protein calorie malnutrition 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 Paranoid schizophrenia Nicotine dependence - Plan Plan: Continue present management Pain management Nutritional Asmnt/Malnutr-PDOC - Dietary Evaluation Malnutrition Findings (Please click <Entered> for more info): Nutritional Asmnt/Malnutrition Start: 02/26/19 15: 22 Text: Status: Complete Freq: Protocol: Document 02/26/19 15:22 LCHENG (Rec: 02/26/19 15:54 [email or web address] [email or web address]) Nutritional Asmnt/Malnutrition Patient General Information Nutritional Screening Moderate Risk Diagnosis abd pain Pertinent Medical Hx/Surgical Hx DM2, dyslipidemia, hip ulcer, bi AKA, colostomy Subjective Information Pt was in OR for surgical repair of hernia at time of visit, transfered to ICU after surgery. On propofol and vent . adj BMI for bi AKA is 21.9 ( normal). Current Diet Order/ Nutrition Support NPO Pertinent Medications vit C, vit D3, colace, humalog , propofol, nacl 0.9% Pertinent Labs 4/5 Glucose 108, POC 82-149 Nutritional Hx/Data Height 1.83 m Height (Calculated Centimeters) 182.9 Current Weight (lbs) 58.967 kg Weight (Calculated Kilograms) 59.0 Weight (Calculated Grams) 04153.0 [place] Body Weight 178 Body Mass Index (BMI) 17.6 Weight Status Underweight GI Symptoms GI Symptoms None Last BM 4/4 Difficult in: None Skin Integrity/Comment: burn to left medial finger, scar to medial abdomen and left buttocks, pressure ulcer to right buttocks Current %PO Negligible < 25% Estimated Nutritional Goals BEE in Kcals: Using Current wt Calories/Kcals/Kg 30-35 Kcals Calculated 9212-9455 Protein: Using Current wt Protein g/k.2-1.4 Protein Calculated 71-83 Fluid: ml 1770-2065ml (1ml/kcal) Nutritional Problem 1. Problem Problem increased nutrition needs Etiology impaired skin integrity Signs/Symptoms: pressure ulcer, s/p surgery Malnutrition Alert Is there a minimum of two criteria No selected? Query Text:Check all the applicable criteria. A minimum of two criteria are recommended for diagnosis of either severe or non-severe malnutrition. Malnutrition Related to Morbid Obesity Malnutrition related to morbid obesity No Intervention/Recommendation Comments 1. Advance diet when medically appropriate and add Carlos BID for wound healing once diet advanced. 2. Monitor NPO status, wt, labs and skin integrity 3. F/U as high risk in 2-3 days Expected Outcomes/Goals Expected Outcomes/Goals 1. PO intake to meet at least 75% of nutritional needs. 2. Wt stability, skin to remain intact, labs to approach WNL.
--- NOTE | 2019-03-01 13:58 | Progress Notes ---
DATE: 03/01/2019 PULMONARY PROGRESS NOTE PROBLEM LIST: 1. Status post abdominal surgery. 2. Status post bilateral amputation, history of previous colostomy. The patient tolerated extubation reasonably well, is sleeping, arousable, not using oxygen. PHYSICAL EXAMINATION: VITAL SIGNS: Temperature is 98.2, blood pressure 140/70, saturation is in 90s on room air. NECK: Veins not visualized. CHEST: Shows diminished air entry with occasional rhonchi. HEART: Regular. EXTREMITIES: Amputated, otherwise unremarkable. LABORATORY DATA: The patient's ABG this morning room air pO2 is 55. Electrolytes with potassium 3.3, and creatinine is 0.6. ASSESSMENT: The patient is clinically stable, improving, tolerating extubation. PLAN: Continue other respiratory care, etc. and go from there. JOB# [id number]
[2019-03-01] MEDS: Venelex 60gm Tube TP SCH (17:13)
[2019-03-01] MEDS: cefTRIAXone 1 GM in Sodium Chloride 0.9% 50 ML IV SCH (20:54)
[2019-03-02] MEDS: HYDROmorphone 2 mg/mL 1mL Vial IVP PRN ×6 (00:46→22:10)
[2019-03-02] MEDS: Albuterol/Ipratropium Neb 3 ML AERS HHN SCH ×6 (02:15→23:20)
[2019-03-02 05:36] LABS: % EOSINOPHILS 3.8 % (0.0-5.0); % LYMPHOCYTES 18.9 % (20.0-50.0); % MONOCYTES 10.6 % (2.0-10.0); % NEUTROPHILS 65.7 % (40.0-80.0); BASOPHILE ABSOLUTE 0.1 Th/cumm (0-0.2); EOSINOPHILE ABSOLUTE 0.4 Th/cmm (0.1-0.4); HEMATOCRIT 36.8 % (41.0-60); HEMOGLOBIN 12.2 gm/dL (12-16); LYMPHOCYTE ABSOLUTE 1.9 Th/cmm (1.5-3.0); MEAN CELL VOLUME 84.4 fl (80-99); MEAN CORPUSCULAR HGB CONC 33.1 pg (28.0-36.0); MONOCYTE ABSOLUTE 1.1 Th/cmm (0.3-1.0); NEUTROPHILE ABSOLUTE 6.7 Th/cmm (1.8-8.0); PLATELET COUNT 263 Th/cmm (150-400); RED BLOOD COUNT 4.36 Mil/cmm (4.30-5.70); RED CELL DISTRIBUTION WIDTH 15.5 % (11.5-20.0); WHITE BLOOD COUNT 10.2 Th/cmm (4.8-10.8)
[2019-03-02 05:44] LABS: ANION GAP 11.3 (7.0-16.0); BUN - UREA NITROGEN 8 mg/dL (7-25); CALCIUM SERUM 8.8 mg/dL (8.6-10.3); CARBON DIOXIDE 25.2 mEq/L (21.0-31.0); CHLORIDE 110 mEq/L (98-107); CREATININE - SERUM 0.6 mg/dL (0.7-1.3); GFR AFRICAN-AMERICAN > 60.0 ml/min (>90); GFR NON AFRICAN-AMERICAN > 60.0 ml/min; GLUCOSE 104 mg/dL (70-105); POTASSIUM SERUM 3.5 mEq/L (3.5-5.1); SODIUM SERUM 143 mEq/L (136-145)
[2019-03-02] MEDS: INSULIN LISPRO SLIDING SCALE 100 UNITS/ML UNIT SUBQ SCH ×4 (06:31→21:35)
[2019-03-02] MEDS: Budesonide 0.5 Mg/2 mL Ud HHN SCH ×2 (07:45→19:21)
--- NOTE | 2019-03-02 08:15 | General Progress Note ---
Subjective - Review of Systems Service Date: 03/02/19 Events since last encounter: patient doing well colostomy working patrice drainage down serosanguinous 03/01 patient doing well tolerating po well colostomy working well hernia repair with biologic graft ACell serosanguinous drainage 60 cc for both PATRICE 03/02 Subjective: patient extubated wants to eat right away will have to pass gas in the colostomy bag first wound appear good at this time vitals good Objective - Results Result Diagrams: 03/02/19 04:47 03/02/19 04:47 Recent Labs: Laboratory Last Values WBC 10.2 Th/cmm (4.8-10.8) 03/02/19 04:47 RBC 4.36 Mil/cmm (4.30-5.70) 03/02/19 04:47 Hgb 12.2 gm/dL (12-16) 03/02/19 04:47 Hct 36.8 % (41.0-60) L 03/02/19 04:47 MCV 84.4 fl (80-99) 03/02/19 04:47 MCH 28.0 pg (26.0-30.0) 03/02/19 04:47 MCHC Differential 33.1 pg (28.0-36.0) 03/02/19 04:47 RDW 15.5 % (11.5-20.0) 03/02/19 04:47 Plt Count 263 Th/cmm (150-400) 03/02/19 04:47 MPV 8.0 fl 03/02/19 04:47 Neutrophils % 65.7 % (40.0-80.0) 03/02/19 04:47 Band Neutrophils % 1 % (0-10) 02/27/19 04:50 Lymphocytes % 18.9 % (20.0-50.0) L 03/02/19 04:47 Monocytes % 10.6 % (2.0-10.0) H 03/02/19 04:47 Eosinophils % 3.8 % (0.0-5.0) 03/02/19 04:47 Basophils % 1.0 % (0.0-2.0) 03/02/19 04:47 Neutrophils (Manual) 85 % (40-80) H 02/28/19 04:10 Lymphocytes 7 % (20-50) L 02/28/19 04:10 Monocytes 8 % (2-10) 02/28/19 04:10 Eosinophils 0 % (0-5) 02/27/19 04:50 Basophils 0 % (0-3) 02/27/19 04:50 Platelet Estimate ADEQUATE (NORMAL) 02/27/19 04:50 PT 10.0 SECONDS (9.5-11.5) 02/25/19 06:00 INR 0.96 (0.5-1.4) 02/25/19 06:00 PTT (Actin FS) 31.5 SECONDS (26.0-38.0) 02/25/19 06:00 Specimen Source Arterial 03/01/19 09:00 Sample Site RB 03/01/19 09:00 pH 7.426 (7.35-7.45) 03/01/19 09:00 pCO2 37.5 mmHg (35.0-45.0) 03/01/19 09:00 pO2 55.7 mmHg (80.0-100.0) L 03/01/19 09:00 HCO3 24.1 mEq/L (20.0-26.0) 03/01/19 09:00 Base Excess 0.1 mEq/L (-3.0-3.0) 03/01/19 09:00 O2 Saturation 89.9 % (92.0-100.0) L 03/01/19 09:00 Steven Test NA 03/01/19 09:00 Vent Rate N 03/01/19 09:00 Inspired O2 21 03/01/19 09:00 Tidal Volume NA 03/01/19 09:00 PEEP NA 03/01/19 09:00 Pressure (ins/psv/peep) NA 03/01/19 09:00 Critical Value SH 03/01/19 09:00 Sodium 143 mEq/L (136-145) 03/02/19 04:47 Potassium 3.5 mEq/L (3.5-5.1) 03/02/19 04:47 Chloride 110 mEq/L (98-107) H 03/02/19 04:47 Carbon Dioxide 25.2 mEq/L (21.0-31.0) 03/02/19 04:47 Anion Gap 11.3 (7.0-16.0) 03/02/19 04:47 BUN 8 mg/dL (7-25) 03/02/19 04:47 Creatinine 0.6 mg/dL (0.7-1.3) L 03/02/19 04:47 Est GFR ( Amer) > 60.0 ml/min (>90) 03/02/19 04:47 Est GFR (Non-Af Amer) > 60.0 ml/min 03/02/19 04:47 BUN/Creatinine Ratio 13.3 03/02/19 04:47 Glucose 104 mg/dL (70-105) 03/02/19 04:47 POC Glucose 100 MG/DL (70 - 105) 03/02/19 05:55 Calcium 8.8 mg/dL (8.6-10.3) 03/02/19 04:47 Total Bilirubin 0.5 mg/dL (0.3-1.0) 03/01/19 05:10 Direct Bilirubin 0.20 mg/dL (0.0-0.2) 03/01/19 05:10 AST 15 U/L (13-39) 03/01/19 05:10 ALT 21 U/L (7-52) 03/01/19 05:10 Alkaline Phosphatase 77 U/L (34-104) 03/01/19 05:10 Ammonia 52 umol/L (16-53) 03/01/19 05:10 Total Protein 6.1 gm/dL (6.0-8.3) 03/01/19 05:10 Albumin 3.4 gm/dL (4.2-5.5) L 03/01/19 05:10 Globulin 2.7 gm/dL 03/01/19 05:10 Albumin/Globulin Ratio 1.3 (1.0-1.8) 03/01/19 05:10 Amylase 39 U/L (29-103) 02/22/19 17:50 Lipase 21 U/L (11-82) 02/22/19 17:50 Blood Type O NEGATIVE 02/25/19 06:00 Antibody Screen NEGATIVE 02/25/19 06:00 - Physical Exam Vitals and I&O: Vital Signs Temp 98.3 F 03/02/19 04:00 Pulse 84 03/02/19 07:45 Resp 18 03/02/19 07:45 BP 139/82 03/02/19 06:00 Pulse Ox 96 03/02/19 07:45 Intake & Output 03/01/19 03/02/19 03/02/19 18:59 06:59 18:59 Intake Total 410 200 Output Total 60 31 Balance 350 169 Weight (lbs) 149 lb 1.6 oz 159 lb 8 oz Intake: Intake, IV Amount 410 Sodium Chloride 0.9% 1, 410 000 ml @ 100 mls/hr IV . Q10H [facility] Rx#:[id number] Oral 0 200 Output: Drainage 60 31 left patrice 50 1 right patrice 10 30 Other: # Voids 3 3 # Bowel Movements 0 Weight Source Bedscale Patient stated Active Medications: Current Medications Acetaminophen (Tylenol Extra Strength) 1,000 mg PO Q4HR PRN PRN Reason: Pain (Moderate) Stop: 04/24/19 16:54 Acetaminophen (Tylenol) 650 mg PO DAILY [facility] Stop: 04/25/19 08:59 Last Admin: 03/01/19 09:32 Dose: Not Given Acetaminophen (Tylenol) 650 mg PO Q6H PRN PRN Reason: Fever Above 101 Stop: 04/27/19 14:22 Acetaminophen (Tylenol 650mg Supp) 650 mg RC Q4H PRN; Protocol PRN Reason: Fever > 101 Stop: 04/29/19 22:26 Acetaminophen/Hydrocodone Bitart ([place] 5mg/325mg) 1 tab PO Q4H PRN PRN Reason: Pain (SEVERE) Stop: 04/27/19 14:22 Albuterol Sulfate (Albuterol 2.5mg/3ml Neb Ud) 2.5 mg HHN Q6H PRN PRN Reason: Shortness of Breath Albuterol/Ipratropium (Duoneb Neb) 3 ml HHN Q4HRT [facility] Stop: 04/28/19 14:59 Last Admin: 03/02/19 07:34 Dose: 3 ml Amitriptyline HCl (Elavil) 50 mg PO HS [facility] Stop: 04/24/19 20:59 Last Admin: 03/01/19 20:54 Dose: 50 mg Ascorbic Acid (Vitamin C) 500 mg PO DAILY [facility] Stop: 04/25/19 08:59 Last Admin: 03/01/19 09:31 Dose: 500 mg Aspirin (Aspirin Chewable) 81 mg PO DAILY [facility] Stop: 04/25/19 08:59 Last Admin: 03/01/19 09:31 Dose: 81 mg Baclofen (Lioresal) 10 mg PO Q8H [facility] Stop: 04/24/19 16:59 Last Admin: 03/02/19 00:44 Dose: 10 mg Bandage/Support Products (Hydrogel) 1 appl TP PRN PRN PRN Reason: PRESSURE WOUND CLEANSE Stop: 04/24/19 16:54 Budesonide (Pulmicort) 0.5 mg HHN BIDRT [facility] Stop: 04/25/19 18:59 Last Admin: 03/02/19 07:45 Dose: 0.[address] [place] [address] Oil/Tajik Balsam/Trypsin (Venelex) 1 appl TP DAILY [facility] Stop: 04/24/19 16:29 Last Admin: 03/01/19 17:13 Dose: 1 appl Cholecalciferol (Vitamin D3) 1,000 iu PO DAILY [facility] Stop: 04/25/19 08:59 Last Admin: 03/01/19 09:30 Dose: 1,000 iu Docusate Sodium (Colace) 100 mg PO DAILY [facility] Stop: 04/25/19 08:59 Last Admin: 03/01/19 09:31 Dose: 100 mg Duloxetine HCl (Cymbalta) 30 mg PO DAILY [facility] Stop: 04/26/19 08:59 Last Admin: 03/01/19 09:30 Dose: 30 mg Hydralazine HCl (Apresoline 20 Mg/Ml) 10 mg IV Q4H PRN PRN Reason: HYPERTENSIVE Stop: 04/29/19 03:22 Last Admin: 02/28/19 17:22 Dose: 10 mg Hydromorphone HCl (Dilaudid) 2 mg IVP Q4HR PRN PRN Reason: Abdominal Pain Stop: 04/23/19 21:45 Last Admin: 03/02/19 05:50 Dose: 2 mg Ceftriaxone Sodium 1 gm/ (Sodium Chloride) 50 mls @ 100 mls/hr IV Q24HR [facility] Stop: 04/23/19 21:29 Last Admin: 03/01/19 20:54 Dose: 100 mls/hr Insulin Human Lispro (Humalog Insulin Sliding Scale) 0 units SUBQ ACHS [facility]; Protocol Stop: 04/24/19 07:29 Last Admin: 03/02/19 06:31 Dose: Not Given Lisinopril (Zestril) 10 mg PO DAILY [facility] Stop: 04/25/19 08:59 Last Admin: 03/01/19 09:31 Dose: 10 mg Lorazepam (Ativan) 1 mg IVP Q4HR PRN; Protocol PRN Reason: Agitation Stop: 04/29/19 03:18 Last Admin: 03/01/19 20:07 Dose: 1 mg Magnesium Hydroxide (Milk Of Magnesia) 30 ml PO HS PRN PRN Reason: Constipation Stop: 04/24/19 16:54 Mupirocin (Bactroban Oint) 1 appl NS BID [facility] Stop: 03/06/19 17:01 Neomycin Sulfate (Neomycin) 1,000 mg PO Q6HR [facility] Stop: 04/27/19 00:00 Last Admin: 03/02/19 05:51 Dose: 1,000 mg Pregabalin (Lyrica) 150 mg PO BID [facility] Stop: 04/24/19 16:59 Last Admin: 03/01/19 17:08 Dose: 150 mg General: No acute distress HEENT: Mucous membr. moist/pink Neck: Supple, JVD, +2 carotid pulse wo bruit (flat) Cardiovascular: Normal S1, Normal S2, Systolic murmurs Lungs: Clear to auscultation, Normal air movement Abdomen: Bowel sounds, Soft, Tender, Other (scar from surgery) Extremities: Other (no pedal edema) Neurological: Strength at 5/5 X4 ext, Normal tone, Cranial nerves 3-12 NL, Reflexes 2+ - Procedures Procedures: Procedures Procedure Code Date EXCISION OF RIGHT PELVIC BONE, OPEN APPROACH [id number] 10/03/18 EXCISION OF RIGHT UPPER FEMUR, OPEN APPROACH [id number] 07/25/18 INSPECTION OF ABDOMINAL WALL, PERC ENDO APPROACH [id number] 02/22/19 INSPECTION OF LOWER INTESTINAL TRACT, ENDO [id number] 05/20/18 INTRODUCE ADHESION BARRIER IN PERITON CAV, OPEN [id number] 02/22/19 REPAIR ABDOMINAL WALL, OPEN APPROACH [id number] 07/25/18 RESPIRATORY VENTILATION, 24-96 CONSECUTIVE HOURS [id number] 02/22/19 SUPPLEMENT ABDOMINAL WALL WITH NONAUT SUB, OPEN APPROACH [id number] 02/22/19 Assessment/Plan - Problem List Patient Problems: All Active Problems ABDOMINAL PAIN, HERNIA RECURRENCE (Acute) - Assessment Assessment: post op day 2 extubated today doing well - Plan Plan: continue to monitor gi function and advance diet only when able to pass gas in the colostomy starting with clear fluids Nutritional Asmnt/Malnutr-PDOC - Dietary Evaluation Malnutrition Findings (Please click <Entered> for more info): Nutritional Asmnt/Malnutrition Start: 02/26/19 15: 22 Text: Status: Complete Freq: Protocol: Document 02/26/19 15:22 [email or web address] (Rec: 02/26/19 15:54 KRISTI [email or web address]) Nutritional Asmnt/Malnutrition Patient General Information Nutritional Screening Moderate Risk Diagnosis abd pain Pertinent Medical Hx/Surgical Hx DM2, dyslipidemia, hip ulcer, bi AKA, colostomy Subjective Information Pt was in OR for surgical repair of hernia at time of visit, transfered to ICU after surgery. On propofol and vent . adj BMI for bi AKA is 21.9 ( normal). Current Diet Order/ Nutrition Support NPO Pertinent Medications vit C, vit D3, colace, humalog , propofol, nacl 0.9% Pertinent Labs 4/5 Glucose 108, POC 82-149 Nutritional Hx/Data Height 6 ft Height (Calculated Centimeters) 182.9 Current Weight (lbs) 130 lb Weight (Calculated Kilograms) 59.0 Weight (Calculated Grams) 19777.0 [place] Body Weight 178 Body Mass Index (BMI) 17.6 Weight Status Underweight GI Symptoms GI Symptoms None Last BM 4/4 Difficult in: None Skin Integrity/Comment: burn to left medial finger, scar to medial abdomen and left buttocks, pressure ulcer to right buttocks Current %PO Negligible < 25% Estimated Nutritional Goals BEE in Kcals: Using Current wt Calories/Kcals/Kg 30-35 Kcals Calculated 6910-7169 Protein: Using Current wt Protein g/k.2-1.4 Protein Calculated 71-83 Fluid: ml 1770-2065ml (1ml/kcal) Nutritional Problem 1. Problem Problem increased nutrition needs Etiology impaired skin integrity Signs/Symptoms: pressure ulcer, s/p surgery Malnutrition Alert Is there a minimum of two criteria No selected? Query Text:Check all the applicable criteria. A minimum of two criteria are recommended for diagnosis of either severe or non-severe malnutrition. Malnutrition Related to Morbid Obesity Malnutrition related to morbid obesity No Intervention/Recommendation Comments 1. Advance diet when medically appropriate and add Carlos BID for wound healing once diet advanced. 2. Monitor NPO status, wt, labs and skin integrity 3. F/U as high risk in 2-3 days Expected Outcomes/Goals Expected Outcomes/Goals 1. PO intake to meet at least 75% of nutritional needs. 2. Wt stability, skin to remain intact, labs to approach WNL.
[2019-03-02] MEDS: Venelex 60gm Tube TP SCH (08:38)
[2019-03-02] MEDS: Aspirin 81mg Chewable Tab PO SCH (08:38)
[2019-03-02] MEDS: Multivitamin w/ Minerals Tab PO SCH (08:38)
[2019-03-02] MEDS ORDERED: Potassium Chloride Elixir 20 mEq /15 mL UDC PO ONE (12:00)
--- NOTE | 2019-03-02 14:30 | Pathology Report ---
[id number] Collection Date: 02/26/2019 Surgeon: Dr. Shannan Funes Specimen Description: 1. Hernia sac. 2. Distal sigmoid. Gross Description: Part I: Received in formalin are three portions of tian-yellow fibrofatty connective tissue measuring 3.5, 5.0, and 11.0 cm in greatest dimension. Sectioning shows mostly fibrofatty connective tissue with a glistening fibromembranous surface. Focal areas of fibrous thickening are appreciated measuring up to 0.6 cm in thickness. There are no focal lesions. Joy Loader sections are submitted in two cassettes labeled A1 and A2. Gross Description: Part II: Received in formalin is a 7 cm in length short segment of colon with a glistening intact outer serosal surface. Opening the specimen reveals folded mucosa with no focal lesions identified. A 2.0 cm oval portion of degenerated material is identified without any apparent connection to the underlying mucosa. It is consistent with a fecalith. Joy Loader sections are submitted in three cassettes labeled B1 to B3. Microscopic Description: Part I: The histologic sections show fibrofatty tissue with areas of fibromembranous thickening consistent with hernia sac. Diagnosis: Part I: Consistent with hernia sac, paracolostomy hernia. Microscopic Description: Part II: The histologic sections show portions of benign colon tissue with an intact mucosa and muscular wall. A portion of regenerated material is also identified consistent with fecalith. Diagnosis: Part II: Portion of benign sigmoid tissue consistent, paracolostomy hernia repair. [facility]# [id number] [facility]
--- NOTE | 2019-03-02 15:32 | Progress Notes ---
DATE: 03/02/2019 PULMONARY PROGRESS NOTE PROBLEM LIST: 1. Status post respiratory failure, postoperatively. 2. History of colostomy. 3. History of hernia repair with exploratory laparotomy. SYMPTOMS: Nil, feeling okay, offers no specific symptomatology. PHYSICAL EXAMINATION: VITAL SIGNS: T-Max 97.5, pulse is 80, saturations 98 on room air. NECK: Veins not visualized. CHEST: Shows diminished air entry without much of adventitious breath sounds. LABORATORY DATA: White count 10,200 and electrolytes are okay with potassium 3.5. ASSESSMENT: The patient is clinically stable, improving respiratory alexis. PLAN: Continue current treatment, etc. diet per surgeon and go from there. JOB# [id number]
[2019-03-02] MEDS: cefTRIAXone 1 GM in Sodium Chloride 0.9% 50 ML IV SCH (22:10)
[2019-03-03] MEDS: HYDROmorphone 2 mg/mL 1mL Vial IVP PRN ×6 (02:02→22:03)
[2019-03-03] MEDS: Albuterol/Ipratropium Neb 3 ML AERS HHN SCH ×6 (02:57→22:32)
[2019-03-03 05:35] LABS: % BASOPHILS 0.1 % (0.0-2.0); % EOSINOPHILS 5.7 % (0.0-5.0); % LYMPHOCYTES 20.1 % (20.0-50.0); % MONOCYTES 10.4 % (2.0-10.0); % NEUTROPHILS 63.7 % (40.0-80.0); EOSINOPHILE ABSOLUTE 0.5 Th/cmm (0.1-0.4); HEMATOCRIT 36.1 % (41.0-60); HEMOGLOBIN 12.1 gm/dL (12-16); LYMPHOCYTE ABSOLUTE 1.8 Th/cmm (1.5-3.0); MEAN CELL VOLUME 84.1 fl (80-99); MEAN CORPUSCULAR HEMOGLOBIN 28.2 pg (26.0-30.0); MEAN CORPUSCULAR HGB CONC 33.6 pg (28.0-36.0); MEAN PLATELET VOLUME 7.4 fl; MONOCYTE ABSOLUTE 0.9 Th/cmm (0.3-1.0); NEUTROPHILE ABSOLUTE 5.8 Th/cmm (1.8-8.0); PLATELET COUNT 269 Th/cmm (150-400); RED BLOOD COUNT 4.29 Mil/cmm (4.30-5.70); RED CELL DISTRIBUTION WIDTH 15.3 % (11.5-20.0)
[2019-03-03 05:52] LABS: ALB/GLOB RATIO 1.2 (1.0-1.8); ALBUMIN 3.2 gm/dL (4.2-5.5); ALKALINE PHOSPHATASE 62 U/L (34-104); ANION GAP 11.8 (7.0-16.0); BILIRUBIN,TOTAL 0.5 mg/dL (0.3-1.0); BUN - UREA NITROGEN 9 mg/dL (7-25); CALCIUM SERUM 8.5 mg/dL (8.6-10.3); CARBON DIOXIDE 25.4 mEq/L (21.0-31.0); CHLORIDE 103 mEq/L (98-107); CREATININE - SERUM 0.6 mg/dL (0.7-1.3); GFR AFRICAN-AMERICAN > 60.0 ml/min (>90); GFR NON AFRICAN-AMERICAN > 60.0 ml/min; GLUCOSE 122 mg/dL (70-105); POTASSIUM SERUM 3.2 mEq/L (3.5-5.1); SGOT 24 U/L (13-39); SGPT/ALT 20 U/L (7-52); SODIUM SERUM 137 mEq/L (136-145); TOTAL PROTEIN,SERUM 5.8 gm/dL (6.0-8.3)
[2019-03-03] MEDS: Budesonide 0.5 Mg/2 mL Ud HHN SCH ×2 (07:49→18:20)
[2019-03-03] MEDS: INSULIN LISPRO SLIDING SCALE 100 UNITS/ML UNIT SUBQ SCH ×4 (08:24→22:30)
[2019-03-03] MEDS: Aspirin 81mg Chewable Tab PO SCH (09:07)
[2019-03-03] MEDS: Multivitamin w/ Minerals Tab PO SCH (09:07)
[2019-03-03] MEDS: Venelex 60gm Tube TP SCH (09:07)
[2019-03-03] MEDS ORDERED: Potassium Chloride 20 mEq ER Tab PO ONE (13:38)
--- NOTE | 2019-03-03 13:40 | General Progress Note ---
Subjective - Review of Systems Service Date: 03/03/19 Subjective: Patient still complains of abdominal pain no nausea vomiting Patient getting potassium supplement Patient tolerating liquids orally Objective - Results Result Diagrams: 03/03/19 05:25 03/03/19 05:25 Recent Labs: Laboratory Last Values WBC 9.0 Th/cmm (4.8-10.8) 03/03/19 05:25 RBC 4.29 Mil/cmm (4.30-5.70) L 03/03/19 05:25 Hgb 12.1 gm/dL (12-16) 03/03/19 05:25 Hct 36.1 % (41.0-60) L 03/03/19 05:25 MCV 84.1 fl (80-99) 03/03/19 05:25 MCH 28.2 pg (26.0-30.0) 03/03/19 05:25 MCHC Differential 33.6 pg (28.0-36.0) 03/03/19 05:25 RDW 15.3 % (11.5-20.0) 03/03/19 05:25 Plt Count 269 Th/cmm (150-400) 03/03/19 05:25 MPV 7.4 fl 03/03/19 05:25 Neutrophils % 63.7 % (40.0-80.0) 03/03/19 05:25 Band Neutrophils % 1 % (0-10) 02/27/19 04:50 Lymphocytes % 20.1 % (20.0-50.0) 03/03/19 05:25 Monocytes % 10.4 % (2.0-10.0) H 03/03/19 05:25 Eosinophils % 5.7 % (0.0-5.0) H 03/03/19 05:25 Basophils % 0.1 % (0.0-2.0) 03/03/19 05:25 Neutrophils (Manual) 85 % (40-80) H 02/28/19 04:10 Lymphocytes 7 % (20-50) L 02/28/19 04:10 Monocytes 8 % (2-10) 02/28/19 04:10 Eosinophils 0 % (0-5) 02/27/19 04:50 Basophils 0 % (0-3) 02/27/19 04:50 Platelet Estimate ADEQUATE (NORMAL) 02/27/19 04:50 PT 10.0 SECONDS (9.5-11.5) 02/25/19 06:00 INR 0.96 (0.5-1.4) 02/25/19 06:00 PTT (Actin FS) 31.5 SECONDS (26.0-38.0) 02/25/19 06:00 Specimen Source Arterial 03/01/19 09:00 Sample Site RB 03/01/19 09:00 pH 7.426 (7.35-7.45) 03/01/19 09:00 pCO2 37.5 mmHg (35.0-45.0) 03/01/19 09:00 pO2 55.7 mmHg (80.0-100.0) L 03/01/19 09:00 HCO3 24.1 mEq/L (20.0-26.0) 03/01/19 09:00 Base Excess 0.1 mEq/L (-3.0-3.0) 03/01/19 09:00 O2 Saturation 89.9 % (92.0-100.0) L 03/01/19 09:00 Steven Test NA 03/01/19 09:00 Vent Rate N 03/01/19 09:00 Inspired O2 21 03/01/19 09:00 Tidal Volume NA 03/01/19 09:00 PEEP NA 03/01/19 09:00 Pressure (ins/psv/peep) NA 03/01/19 09:00 Critical Value SH 03/01/19 09:00 Sodium 137 mEq/L (136-145) 03/03/19 05:25 Potassium 3.2 mEq/L (3.5-5.1) L 03/03/19 05:25 Chloride 103 mEq/L (98-107) 03/03/19 05:25 Carbon Dioxide 25.4 mEq/L (21.0-31.0) 03/03/19 05:25 Anion Gap 11.8 (7.0-16.0) 03/03/19 05:25 BUN 9 mg/dL (7-25) 03/03/19 05:25 Creatinine 0.6 mg/dL (0.7-1.3) L 03/03/19 05:25 Est GFR ( Amer) > 60.0 ml/min (>90) 03/03/19 05:25 Est GFR (Non-Af Amer) > 60.0 ml/min 03/03/19 05:25 BUN/Creatinine Ratio 15.0 03/03/19 05:25 Glucose 122 mg/dL (70-105) H 03/03/19 05:25 POC Glucose 140 MG/DL (70 - 105) H 03/03/19 10:56 Calcium 8.5 mg/dL (8.6-10.3) L 03/03/19 05:25 Total Bilirubin 0.5 mg/dL (0.3-1.0) 03/03/19 05:25 Direct Bilirubin 0.20 mg/dL (0.0-0.2) 03/01/19 05:10 AST 24 U/L (13-39) 03/03/19 05:25 ALT 20 U/L (7-52) 03/03/19 05:25 Alkaline Phosphatase 62 U/L (34-104) 03/03/19 05:25 Ammonia 52 umol/L (16-53) 03/01/19 05:10 Total Protein 5.8 gm/dL (6.0-8.3) L 03/03/19 05:25 Albumin 3.2 gm/dL (4.2-5.5) L 03/03/19 05:25 Globulin 2.6 gm/dL 03/03/19 05:25 Albumin/Globulin Ratio 1.2 (1.0-1.8) 03/03/19 05:25 Amylase 39 U/L (29-103) 02/22/19 17:50 Lipase 21 U/L (11-82) 02/22/19 17:50 Blood Type O NEGATIVE 02/25/19 06:00 Antibody Screen NEGATIVE 02/25/19 06:00 - Physical Exam Vitals and I&O: Vital Signs Temp 97.9 F 03/03/19 12:00 Pulse 81 03/03/19 12:00 Resp 18 03/03/19 12:00 BP 120/62 03/03/19 12:00 Pulse Ox 96 03/03/19 12:00 Intake & Output 03/02/19 03/03/19 03/03/19 18:59 06:59 18:59 Intake Total 650 150 Output Total 112 50 Balance 538 100 Weight (lbs) 33.112 kg 33.112 kg Intake: Oral 650 150 Output: Drainage 72 left patrice 12 right patrice 60 Stool 40 50 Other: # Voids 3 3 Stool Characteristics Soft Soft Liquid Liquid Brown Brown Weight Source Bedscale Bedscale Active Medications: Current Medications Acetaminophen (Tylenol Extra Strength) 1,000 mg PO Q4HR PRN PRN Reason: Pain (Moderate) Stop: 04/24/19 16:54 Acetaminophen (Tylenol) 650 mg PO DAILY [facility] Stop: 04/25/19 08:59 Last Admin: 03/03/19 09:06 Dose: 650 mg Acetaminophen (Tylenol) 650 mg PO Q6H PRN PRN Reason: Fever Above 101 Stop: 04/27/19 14:22 Acetaminophen (Tylenol 650mg Supp) 650 mg RC Q4H PRN; Protocol PRN Reason: Fever > 101 Stop: 04/29/19 22:26 Acetaminophen/Hydrocodone Bitart ([place] 5mg/325mg) 1 tab PO Q4H PRN PRN Reason: Pain (SEVERE) Stop: 04/27/19 14:22 Albuterol Sulfate (Albuterol 2.5mg/3ml Neb Ud) 2.5 mg HHN Q6H PRN PRN Reason: Shortness of Breath Albuterol/Ipratropium (Duoneb Neb) 3 ml HHN Q4HRT [facility] Stop: 04/28/19 14:59 Last Admin: 03/03/19 10:41 Dose: 3 ml Amitriptyline HCl (Elavil) 50 mg PO HS [facility] Stop: 04/24/19 20:59 Last Admin: 03/02/19 22:10 Dose: 50 mg Ascorbic Acid (Vitamin C) 500 mg PO DAILY [facility] Stop: 04/25/19 08:59 Last Admin: 03/03/19 09:07 Dose: 500 mg Aspirin (Aspirin Chewable) 81 mg PO DAILY [facility] Stop: 04/25/19 08:59 Last Admin: 03/03/19 09:07 Dose: 81 mg Baclofen (Lioresal) 10 mg PO Q8H [facility] Stop: 04/24/19 16:59 Last Admin: 03/03/19 09:07 Dose: 10 mg Bandage/Support Products (Hydrogel) 1 appl TP PRN PRN PRN Reason: PRESSURE WOUND CLEANSE Stop: 04/24/19 16:54 Budesonide (Pulmicort) 0.5 mg HHN BIDRT [facility] Stop: 04/25/19 18:59 Last Admin: 03/03/19 07:49 Dose: 0.5 mg [place] Oil/[place] Balsam/Trypsin (Venelex) 1 appl TP DAILY [facility] Stop: 04/24/19 16:29 Last Admin: 03/03/19 09:07 Dose: 1 appl Cholecalciferol (Vitamin D3) 1,000 iu PO DAILY [facility] Stop: 04/25/19 08:59 Last Admin: 03/03/19 09:06 Dose: 1,000 iu Docusate Sodium (Colace) 100 mg PO DAILY [facility] Stop: 04/25/19 08:59 Last Admin: 03/03/19 09:07 Dose: 100 mg Duloxetine HCl (Cymbalta) 30 mg PO DAILY [facility] Stop: 04/26/19 08:59 Last Admin: 03/03/19 09:06 Dose: 30 mg Hydralazine HCl (Apresoline 20 Mg/Ml) 10 mg IV Q4H PRN PRN Reason: HYPERTENSIVE Stop: 04/29/19 03:22 Last Admin: 02/28/19 17:22 Dose: 10 mg Hydromorphone HCl (Dilaudid) 2 mg IVP Q4HR PRN PRN Reason: Abdominal Pain Stop: 04/23/19 21:45 Last Admin: 03/03/19 10:00 Dose: 2 mg Ceftriaxone Sodium 1 gm/ (Sodium Chloride) 50 mls @ 100 mls/hr IV Q24HR [facility] Stop: 04/23/19 21:29 Last Admin: 03/02/19 22:10 Dose: 100 mls/hr Insulin Human Lispro (Humalog Insulin Sliding Scale) 0 units SUBQ ACHS [facility]; Protocol Stop: 04/24/19 07:29 Last Admin: 03/03/19 10:59 Dose: Not Given Lisinopril (Zestril) 10 mg PO DAILY [facility] Stop: 04/25/19 08:59 Last Admin: 03/03/19 09:06 Dose: 10 mg Lorazepam (Ativan) 1 mg IVP Q4HR PRN; Protocol PRN Reason: Agitation Stop: 04/29/19 03:18 Last Admin: 03/01/19 20:07 Dose: 1 mg Magnesium Hydroxide (Milk Of Magnesia) 30 ml PO HS PRN PRN Reason: Constipation Stop: 04/24/19 16:54 Neomycin Sulfate (Neomycin) 1,000 mg PO Q6HR [facility] Stop: 04/27/19 00:00 Last Admin: 03/03/19 11:12 Dose: 1,000 mg Potassium Chloride (Klor-Con) 40 meq PO X1 ONE Stop: 03/03/19 13:39 Pregabalin (Lyrica) 150 mg PO BID [facility] Stop: 04/24/19 16:59 Last Admin: 03/03/19 09:07 Dose: 150 mg General: No acute distress HEENT: Mucous membr. moist/pink Neck: Supple, JVD, +2 carotid pulse wo bruit (flat) Cardiovascular: Normal S1, Normal S2, Systolic murmurs Lungs: Clear to auscultation, Normal air movement Abdomen: Bowel sounds, Soft, Tender, Other (scar from surgery) Extremities: Other (no pedal edema) Neurological: Strength at 5/5 X4 ext, Normal tone, Cranial nerves 3-12 NL, Reflexes 2+ - Procedures Procedures: Procedures Procedure Code Date EXCISION OF RIGHT PELVIC BONE, OPEN APPROACH [id number] 10/03/18 EXCISION OF RIGHT UPPER FEMUR, OPEN APPROACH [id number] 07/25/18 INSPECTION OF ABDOMINAL WALL, PERC ENDO APPROACH [id number] 02/22/19 INSPECTION OF LOWER INTESTINAL TRACT, ENDO [id number] 05/20/18 INTRODUCE ADHESION BARRIER IN PERITON CAV, OPEN [id number] 02/22/19 REPAIR ABDOMINAL WALL, OPEN APPROACH [id number] 07/25/18 RESPIRATORY VENTILATION, 24-96 CONSECUTIVE HOURS [id number] 02/22/19 SUPPLEMENT ABDOMINAL WALL WITH NONAUT SUB, OPEN APPROACH [id number] 02/22/19 Assessment/Plan - Problem List Patient Problems: All Active Problems ABDOMINAL PAIN, HERNIA RECURRENCE (Acute) - Assessment Assessment: Acute respiratory failure off ventilatory Ventral hernia repair Bilateral above-knee amputation Diabetes mellitus type 2 Protein calorie malnutrition 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 Paranoid schizophrenia Nicotine dependence Hypokalemia - Plan Plan: Continue present management Pain management Potassium supplement Nutritional Asmnt/Malnutr-PDOC - Dietary Evaluation Malnutrition Findings (Please click <Entered> for more info): Nutritional Asmnt/Malnutrition Start: 02/26/19 15: 22 Text: Status: Complete Freq: Protocol: Document 02/26/19 15:22 [facility] (Rec: 02/26/19 15:54 [facility] [email or web address]) Nutritional Asmnt/Malnutrition Patient General Information Nutritional Screening Moderate Risk Diagnosis abd pain Pertinent Medical Hx/Surgical Hx DM2, dyslipidemia, hip ulcer, bi AKA, colostomy Subjective Information Pt was in OR for surgical repair of hernia at time of visit, transfered to ICU after surgery. On propofol and vent . adj BMI for bi AKA is 21.9 ( normal). Current Diet Order/ Nutrition Support NPO Pertinent Medications vit C, vit D3, colace, humalog , propofol, nacl 0.9% Pertinent Labs 4/ Glucose 108, POC 82-149 Nutritional Hx/Data Height 1.83 m Height (Calculated Centimeters) 182.9 Current Weight (lbs) 58.967 kg Weight (Calculated Kilograms) 59.0 Weight (Calculated Grams) 89017.0 [place] Body Weight 178 Body Mass Index (BMI) 17.6 Weight Status Underweight GI Symptoms GI Symptoms None Last BM 4/4 Difficult in: None Skin Integrity/Comment: burn to left medial finger, scar to medial abdomen and left buttocks, pressure ulcer to right buttocks Current %PO Negligible < 25% Estimated Nutritional Goals BEE in Kcals: Using Current wt Calories/Kcals/Kg 30-35 Kcals Calculated 3745-9558 Protein: Using Current wt Protein g/k.2-1.4 Protein Calculated 71-83 Fluid: ml 1770-2065ml (1ml/kcal) Nutritional Problem 1. Problem Problem increased nutrition needs Etiology impaired skin integrity Signs/Symptoms: pressure ulcer, s/p surgery Malnutrition Alert Is there a minimum of two criteria No selected? Query Text:Check all the applicable criteria. A minimum of two criteria are recommended for diagnosis of either severe or non-severe malnutrition. Malnutrition Related to Morbid Obesity Malnutrition related to morbid obesity No Intervention/Recommendation Comments 1. Advance diet when medically appropriate and add Carlos BID for wound healing once diet advanced. 2. Monitor NPO status, wt, labs and skin integrity 3. F/U as high risk in 2-3 days Expected Outcomes/Goals Expected Outcomes/Goals 1. PO intake to meet at least 75% of nutritional needs. 2. Wt stability, skin to remain intact, labs to approach WNL.
--- NOTE | 2019-03-03 14:13 | Progress Notes ---
DATE: 03/03/2019 PULMONARY PROGRESS NOTE PROBLEM LIST: 1. Chronic obstructive pulmonary disease. 2. Status post mechanical ventilation after surgery, extubated, seems to be okay. Minimal coughing, no respiratory active issue except for some shortness of breath. PHYSICAL EXAMINATION: VITAL SIGNS: Temperature is 97.3, blood pressure 120/62, saturation is 96% on room air. NECK: Veins not visualized. CHEST: Shows diminished air entry with occasional rhonchi. HEART: Regular. ABDOMEN: Soft, nontender. LABORATORY DATA: The patient's CBC: White count is 9000, hemoglobin 12.3. Potassium is 3.2. ASSESSMENT: The patient clinically doing much better respiratory alexis. PLAN AND SUGGESTION: Continue current treatment, inhalation treatment, nocturnal BiPAP. He is agreeable and go from there. JOB# [id number]
--- NOTE | 2019-03-03 14:45 | Internal Medicine Prog Note ---
Internal Medicine Subjective - Subjective Service Date: 03/03/19 Patient is:: awake, arousable, in bed, denies any new complaints Internal Medicine Objective - Results Result Diagrams: 03/03/19 05:25 03/03/19 05:25 Recent Labs: Laboratory Last Values WBC 9.0 Th/cmm (4.8-10.8) 03/03/19 05:25 RBC 4.29 Mil/cmm (4.30-5.70) L 03/03/19 05:25 Hgb 12.1 gm/dL (12-16) 03/03/19 05:25 Hct 36.1 % (41.0-60) L 03/03/19 05:25 MCV 84.1 fl (80-99) 03/03/19 05:25 MCH 28.2 pg (26.0-30.0) 03/03/19 05:25 MCHC Differential 33.6 pg (28.0-36.0) 03/03/19 05:25 RDW 15.3 % (11.5-20.0) 03/03/19 05:25 Plt Count 269 Th/cmm (150-400) 03/03/19 05:25 MPV 7.4 fl 03/03/19 05:25 Neutrophils % 63.7 % (40.0-80.0) 03/03/19 05:25 Band Neutrophils % 1 % (0-10) 02/27/19 04:50 Lymphocytes % 20.1 % (20.0-50.0) 03/03/19 05:25 Monocytes % 10.4 % (2.0-10.0) H 03/03/19 05:25 Eosinophils % 5.7 % (0.0-5.0) H 03/03/19 05:25 Basophils % 0.1 % (0.0-2.0) 03/03/19 05:25 Neutrophils (Manual) 85 % (40-80) H 02/28/19 04:10 Lymphocytes 7 % (20-50) L 02/28/19 04:10 Monocytes 8 % (2-10) 02/28/19 04:10 Eosinophils 0 % (0-5) 02/27/19 04:50 Basophils 0 % (0-3) 02/27/19 04:50 Platelet Estimate ADEQUATE (NORMAL) 02/27/19 04:50 PT 10.0 SECONDS (9.5-11.5) 02/25/19 06:00 INR 0.96 (0.5-1.4) 02/25/19 06:00 PTT (Actin FS) 31.5 SECONDS (26.0-38.0) 02/25/19 06:00 Specimen Source Arterial 03/01/19 09:00 Sample Site RB 03/01/19 09:00 pH 7.426 (7.35-7.45) 03/01/19 09:00 pCO2 37.5 mmHg (35.0-45.0) 03/01/19 09:00 pO2 55.7 mmHg (80.0-100.0) L 03/01/19 09:00 HCO3 24.1 mEq/L (20.0-26.0) 03/01/19 09:00 Base Excess 0.1 mEq/L (-3.0-3.0) 03/01/19 09:00 O2 Saturation 89.9 % (92.0-100.0) L 03/01/19 09:00 Steven Test NA 03/01/19 09:00 Vent Rate N 03/01/19 09:00 Inspired O2 21 03/01/19 09:00 Tidal Volume NA 03/01/19 09:00 PEEP NA 03/01/19 09:00 Pressure (ins/psv/peep) NA 03/01/19 09:00 Critical Value SH 03/01/19 09:00 Sodium 137 mEq/L (136-145) 03/03/19 05:25 Potassium 3.2 mEq/L (3.5-5.1) L 03/03/19 05:25 Chloride 103 mEq/L (98-107) 03/03/19 05:25 Carbon Dioxide 25.4 mEq/L (21.0-31.0) 03/03/19 05:25 Anion Gap 11.8 (7.0-16.0) 03/03/19 05:25 BUN 9 mg/dL (7-25) 03/03/19 05:25 Creatinine 0.6 mg/dL (0.7-1.3) L 03/03/19 05:25 Est GFR ( Amer) > 60.0 ml/min (>90) 03/03/19 05:25 Est GFR (Non-Af Amer) > 60.0 ml/min 03/03/19 05:25 BUN/Creatinine Ratio 15.0 03/03/19 05:25 Glucose 122 mg/dL (70-105) H 03/03/19 05:25 POC Glucose 140 MG/DL (70 - 105) H 03/03/19 10:56 Calcium 8.5 mg/dL (8.6-10.3) L 03/03/19 05:25 Total Bilirubin 0.5 mg/dL (0.3-1.0) 03/03/19 05:25 Direct Bilirubin 0.20 mg/dL (0.0-0.2) 03/01/19 05:10 AST 24 U/L (13-39) 03/03/19 05:25 ALT 20 U/L (7-52) 03/03/19 05:25 Alkaline Phosphatase 62 U/L (34-104) 03/03/19 05:25 Ammonia 52 umol/L (16-53) 03/01/19 05:10 Total Protein 5.8 gm/dL (6.0-8.3) L 03/03/19 05:25 Albumin 3.2 gm/dL (4.2-5.5) L 03/03/19 05:25 Globulin 2.6 gm/dL 03/03/19 05:25 Albumin/Globulin Ratio 1.2 (1.0-1.8) 03/03/19 05:25 Amylase 39 U/L (29-103) 02/22/19 17:50 Lipase 21 U/L (11-82) 02/22/19 17:50 Blood Type O NEGATIVE 02/25/19 06:00 Antibody Screen NEGATIVE 02/25/19 06:00 - Physical Exam Vitals and I&O: Vital Signs Temp 97.9 F 03/03/19 12:00 Pulse 94 03/03/19 14:02 Resp 18 03/03/19 14:02 BP 120/62 03/03/19 12:00 Pulse Ox 98 03/03/19 14:02 Intake & Output 03/02/19 03/03/19 03/03/19 18:59 06:59 18:59 Intake Total 650 150 Output Total 112 50 Balance 538 100 Weight (lbs) 73 lb 73 lb Intake: Oral 650 150 Output: Drainage 72 left patrice 12 right patrice 60 Stool 40 50 Other: # Voids 3 3 Stool Characteristics Soft Soft Liquid Liquid Brown Brown Weight Source Bedscale Bedscale Active Medications: Current Medications Acetaminophen (Tylenol Extra Strength) 1,000 mg PO Q4HR PRN PRN Reason: Pain (Moderate) Stop: 04/24/19 16:54 Acetaminophen (Tylenol) 650 mg PO DAILY [facility] Stop: 04/25/19 08:59 Last Admin: 03/03/19 09:06 Dose: 650 mg Acetaminophen (Tylenol) 650 mg PO Q6H PRN PRN Reason: Fever Above 101 Stop: 04/27/19 14:22 Acetaminophen (Tylenol 650mg Supp) 650 mg RC Q4H PRN; Protocol PRN Reason: Fever > 101 Stop: 04/29/19 22:26 Acetaminophen/Hydrocodone Bitart ([place] 5mg/325mg) 1 tab PO Q4H PRN PRN Reason: Pain (SEVERE) Stop: 04/27/19 14:22 Albuterol Sulfate (Albuterol 2.5mg/3ml Neb Ud) 2.5 mg HHN Q6H PRN PRN Reason: Shortness of Breath Albuterol/Ipratropium (Duoneb Neb) 3 ml HHN Q4HRT [facility] Stop: 04/28/19 14:59 Last Admin: 03/03/19 14:02 Dose: 3 ml Amitriptyline HCl (Elavil) 50 mg PO HS [facility] Stop: 04/24/19 20:59 Last Admin: 03/02/19 22:10 Dose: 50 mg Ascorbic Acid (Vitamin C) 500 mg PO DAILY [facility] Stop: 04/25/19 08:59 Last Admin: 03/03/19 09:07 Dose: 500 mg Aspirin (Aspirin Chewable) 81 mg PO DAILY [facility] Stop: 04/25/19 08:59 Last Admin: 03/03/19 09:07 Dose: 81 mg Baclofen (Lioresal) 10 mg PO Q8H [facility] Stop: 04/24/19 16:59 Last Admin: 03/03/19 09:07 Dose: 10 mg Bandage/Support Products (Hydrogel) 1 appl TP PRN PRN PRN Reason: PRESSURE WOUND CLEANSE Stop: 04/24/19 16:54 Budesonide (Pulmicort) 0.5 mg HHN BIDRT [facility] Stop: 04/25/19 18:59 Last Admin: 03/03/19 07:49 Dose: 0.5 mg [place] Oil/[place] Balsam/Trypsin (Venelex) 1 appl TP DAILY [facility] Stop: 04/24/19 16:29 Last Admin: 03/03/19 09:07 Dose: 1 appl Cholecalciferol (Vitamin D3) 1,000 iu PO DAILY [facility] Stop: 04/25/19 08:59 Last Admin: 03/03/19 09:06 Dose: 1,000 iu Docusate Sodium (Colace) 100 mg PO DAILY [facility] Stop: 04/25/19 08:59 Last Admin: 03/03/19 09:07 Dose: 100 mg Duloxetine HCl (Cymbalta) 30 mg PO DAILY [facility] Stop: 04/26/19 08:59 Last Admin: 03/03/19 09:06 Dose: 30 mg Hydralazine HCl (Apresoline 20 Mg/Ml) 10 mg IV Q4H PRN PRN Reason: HYPERTENSIVE Stop: 04/29/19 03:22 Last Admin: 02/28/19 17:22 Dose: 10 mg Hydromorphone HCl (Dilaudid) 2 mg IVP Q4HR PRN PRN Reason: Abdominal Pain Stop: 04/23/19 21:45 Last Admin: 03/03/19 14:01 Dose: 2 mg Ceftriaxone Sodium 1 gm/ (Sodium Chloride) 50 mls @ 100 mls/hr IV Q24HR [facility] Stop: 04/23/19 21:29 Last Admin: 03/02/19 22:10 Dose: 100 mls/hr Insulin Human Lispro (Humalog Insulin Sliding Scale) 0 units SUBQ ACHS [facility]; Protocol Stop: 04/24/19 07:29 Last Admin: 03/03/19 10:59 Dose: Not Given Lisinopril (Zestril) 10 mg PO DAILY [facility] Stop: 04/25/19 08:59 Last Admin: 03/03/19 09:06 Dose: 10 mg Lorazepam (Ativan) 1 mg IVP Q4HR PRN; Protocol PRN Reason: Agitation Stop: 04/29/19 03:18 Last Admin: 03/01/19 20:07 Dose: 1 mg Magnesium Hydroxide (Milk Of Magnesia) 30 ml PO HS PRN PRN Reason: Constipation Stop: 04/24/19 16:54 Neomycin Sulfate (Neomycin) 1,000 mg PO Q6HR [facility] Stop: 04/27/19 00:00 Last Admin: 03/03/19 11:12 Dose: 1,000 mg Pregabalin (Lyrica) 150 mg PO BID [facility] Stop: 04/24/19 16:59 Last Admin: 03/03/19 09:07 Dose: 150 mg General: alert HEENT: NC/AT, PERRLA Neck: Supple Cardiovascular: RRR, Normal S1, Normal S2, without murmur Abdomen: distended Extremities: excoriation Neurological: alert - Procedures Procedures: Procedures Procedure Code Date EXCISION OF RIGHT PELVIC BONE, OPEN APPROACH [id number] 10/03/18 EXCISION OF RIGHT UPPER FEMUR, OPEN APPROACH [id number] 07/25/18 INSPECTION OF ABDOMINAL WALL, PERC ENDO APPROACH [id number] 02/22/19 INSPECTION OF LOWER INTESTINAL TRACT, ENDO [id number] 05/20/18 INTRODUCE ADHESION BARRIER IN PERITON CAV, OPEN [id number] 02/22/19 REPAIR ABDOMINAL WALL, OPEN APPROACH [id number] 07/25/18 RESPIRATORY VENTILATION, 24-96 CONSECUTIVE HOURS [id number] 02/22/19 SUPPLEMENT ABDOMINAL WALL WITH NONAUT SUB, OPEN APPROACH [id number] 02/22/19 Internal Medicine Assmt/Plan - Assessment Assessment: s/p extubation abd pain 2/2 possible partial incarceration of small bowel loops s/p exploratory laparotomy placement of biologic graft (acell) repair of paracolostomy hernia bilateral aka fecal impaction leukocytosis mild protein calorie malnutrition dm dyslipidemia right hip pressure ulcer - Plan Plan: continue ivabx am labs pain mgmt continue current plan of care Nutritional Asmnt/Malnutr-PDOC - Dietary Evaluation Malnutrition Findings (Please click <Entered> for more info): Nutritional Asmnt/Malnutrition Start: 02/26/19 15: 22 Text: Status: Complete Freq: Protocol: Document 02/26/19 15:22 [facility] (Rec: 02/26/19 15:54 [facility] [email or web address]) Nutritional Asmnt/Malnutrition Patient General Information Nutritional Screening Moderate Risk Diagnosis abd pain Pertinent Medical Hx/Surgical Hx DM2, dyslipidemia, hip ulcer, bi AKA, colostomy Subjective Information Pt was in OR for surgical repair of hernia at time of visit, transfered to ICU after surgery. On propofol and vent . adj BMI for bi AURELIA is 21.9 ( normal). Current Diet Order/ Nutrition Support NPO Pertinent Medications vit C, vit D3, colace, humalog , propofol, nacl 0.9% Pertinent Labs 4/5 Glucose 108, POC 82-149 Nutritional Hx/Data Height 6 ft Height (Calculated Centimeters) 182.9 Current Weight (lbs) 130 lb Weight (Calculated Kilograms) 59.0 Weight (Calculated Grams) 08235.0 [place] Body Weight 178 Body Mass Index (BMI) 17.6 Weight Status Underweight GI Symptoms GI Symptoms None Last BM 4/4 Difficult in: None Skin Integrity/Comment: burn to left medial finger, scar to medial abdomen and left buttocks, pressure ulcer to right buttocks Current %PO Negligible < 25% Estimated Nutritional Goals BEE in Kcals: Using Current wt Calories/Kcals/Kg 30-35 Kcals Calculated 6336-7078 Protein: Using Current wt Protein g/k.2-1.4 Protein Calculated 71-83 Fluid: ml 1770-2065ml (1ml/kcal) Nutritional Problem 1. Problem Problem increased nutrition needs Etiology impaired skin integrity Signs/Symptoms: pressure ulcer, s/p surgery Malnutrition Alert Is there a minimum of two criteria No selected? Query Text:Check all the applicable criteria. A minimum of two criteria are recommended for diagnosis of either severe or non-severe malnutrition. Malnutrition Related to Morbid Obesity Malnutrition related to morbid obesity No Intervention/Recommendation Comments 1. Advance diet when medically appropriate and add Carlos BID for wound healing once diet advanced. 2. Monitor NPO status, wt, labs and skin integrity 3. F/U as high risk in 2-3 days Expected Outcomes/Goals Expected Outcomes/Goals 1. PO intake to meet at least 75% of nutritional needs. 2. Wt stability, skin to remain intact, labs to approach WNL.
--- NOTE | 2019-03-03 19:46 | Internal Medicine Prog Note ---
Internal Medicine Subjective - Subjective Service Date: 03/02/19 Patient seen and examined:: with staff Patient is:: awake, arousable, in bed, denies any new complaints Patient Complaints of:: cough, SOB, other (Acute respiratory failure.) Per staff patient has:: no adverse event, no episodes of fall Internal Medicine Objective - Results Result Diagrams: 03/03/19 05:25 03/03/19 05:25 Recent Labs: Laboratory Last Values WBC 9.0 Th/cmm (4.8-10.8) 03/03/19 05:25 RBC 4.29 Mil/cmm (4.30-5.70) L 03/03/19 05:25 Hgb 12.1 gm/dL (12-16) 03/03/19 05:25 Hct 36.1 % (41.0-60) L 03/03/19 05:25 MCV 84.1 fl (80-99) 03/03/19 05:25 MCH 28.2 pg (26.0-30.0) 03/03/19 05:25 MCHC Differential 33.6 pg (28.0-36.0) 03/03/19 05:25 RDW 15.3 % (11.5-20.0) 03/03/19 05:25 Plt Count 269 Th/cmm (150-400) 03/03/19 05:25 MPV 7.4 fl 03/03/19 05:25 Neutrophils % 63.7 % (40.0-80.0) 03/03/19 05:25 Band Neutrophils % 1 % (0-10) 02/27/19 04:50 Lymphocytes % 20.1 % (20.0-50.0) 03/03/19 05:25 Monocytes % 10.4 % (2.0-10.0) H 03/03/19 05:25 Eosinophils % 5.7 % (0.0-5.0) H 03/03/19 05:25 Basophils % 0.1 % (0.0-2.0) 03/03/19 05:25 Neutrophils (Manual) 85 % (40-80) H 02/28/19 04:10 Lymphocytes 7 % (20-50) L 02/28/19 04:10 Monocytes 8 % (2-10) 02/28/19 04:10 Eosinophils 0 % (0-5) 02/27/19 04:50 Basophils 0 % (0-3) 02/27/19 04:50 Platelet Estimate ADEQUATE (NORMAL) 02/27/19 04:50 PT 10.0 SECONDS (9.5-11.5) 02/25/19 06:00 INR 0.96 (0.5-1.4) 02/25/19 06:00 PTT (Actin FS) 31.5 SECONDS (26.0-38.0) 02/25/19 06:00 Specimen Source Arterial 03/01/19 09:00 Sample Site RB 03/01/19 09:00 pH 7.426 (7.35-7.45) 03/01/19 09:00 pCO2 37.5 mmHg (35.0-45.0) 03/01/19 09:00 pO2 55.7 mmHg (80.0-100.0) L 03/01/19 09:00 HCO3 24.1 mEq/L (20.0-26.0) 03/01/19 09:00 Base Excess 0.1 mEq/L (-3.0-3.0) 03/01/19 09:00 O2 Saturation 89.9 % (92.0-100.0) L 03/01/19 09:00 Steven Test NA 03/01/19 09:00 Vent Rate N 03/01/19 09:00 Inspired O2 21 03/01/19 09:00 Tidal Volume NA 03/01/19 09:00 PEEP NA 03/01/19 09:00 Pressure (ins/psv/peep) NA 03/01/19 09:00 Critical Value SH 03/01/19 09:00 Sodium 137 mEq/L (136-145) 03/03/19 05:25 Potassium 3.2 mEq/L (3.5-5.1) L 03/03/19 05:25 Chloride 103 mEq/L (98-107) 03/03/19 05:25 Carbon Dioxide 25.4 mEq/L (21.0-31.0) 03/03/19 05:25 Anion Gap 11.8 (7.0-16.0) 03/03/19 05:25 BUN 9 mg/dL (7-25) 03/03/19 05:25 Creatinine 0.6 mg/dL (0.7-1.3) L 03/03/19 05:25 Est GFR ( Amer) > 60.0 ml/min (>90) 03/03/19 05:25 Est GFR (Non-Af Amer) > 60.0 ml/min 03/03/19 05:25 BUN/Creatinine Ratio 15.0 03/03/19 05:25 Glucose 122 mg/dL (70-105) H 03/03/19 05:25 POC Glucose 121 MG/DL (70 - 105) H 03/03/19 15:53 Calcium 8.5 mg/dL (8.6-10.3) L 03/03/19 05:25 Total Bilirubin 0.5 mg/dL (0.3-1.0) 03/03/19 05:25 Direct Bilirubin 0.20 mg/dL (0.0-0.2) 03/01/19 05:10 AST 24 U/L (13-39) 03/03/19 05:25 ALT 20 U/L (7-52) 03/03/19 05:25 Alkaline Phosphatase 62 U/L (34-104) 03/03/19 05:25 Ammonia 52 umol/L (16-53) 03/01/19 05:10 Total Protein 5.8 gm/dL (6.0-8.3) L 03/03/19 05:25 Albumin 3.2 gm/dL (4.2-5.5) L 03/03/19 05:25 Globulin 2.6 gm/dL 03/03/19 05:25 Albumin/Globulin Ratio 1.2 (1.0-1.8) 03/03/19 05:25 Amylase 39 U/L (29-103) 02/22/19 17:50 Lipase 21 U/L (11-82) 02/22/19 17:50 Blood Type O NEGATIVE 02/25/19 06:00 Antibody Screen NEGATIVE 02/25/19 06:00 - Physical Exam Vitals and I&O: Vital Signs Temp 98.0 F 03/03/19 16:00 Pulse 88 03/03/19 18:45 Resp 20 03/03/19 18:45 BP 114/69 03/03/19 16:00 Pulse Ox 97 03/03/19 18:45 Intake & Output 03/03/19 03/03/19 03/04/19 06:59 18:59 06:59 Intake Total 150 200 Output Total 50 30 Balance 100 170 Weight (lbs) 33.112 kg 33.112 kg Intake: Oral 150 200 Output: Drainage 30 left patrice 20 right patrice 10 Stool 50 Other: # Voids 3 2 Stool Characteristics Soft Soft Liquid Liquid Brown Brown Weight Source Bedscale Bedscale Active Medications: Current Medications Acetaminophen (Tylenol Extra Strength) 1,000 mg PO Q4HR PRN PRN Reason: Pain (Moderate) Stop: 04/24/19 16:54 Acetaminophen (Tylenol) 650 mg PO DAILY [facility] Stop: 04/25/19 08:59 Last Admin: 03/03/19 09:06 Dose: 650 mg Acetaminophen (Tylenol) 650 mg PO Q6H PRN PRN Reason: Fever Above 101 Stop: 04/27/19 14:22 Acetaminophen (Tylenol 650mg Supp) 650 mg RC Q4H PRN; Protocol PRN Reason: Fever > 101 Stop: 04/29/19 22:26 Acetaminophen/Hydrocodone Bitart ([place] 5mg/325mg) 1 tab PO Q4H PRN PRN Reason: Pain (SEVERE) Stop: 04/27/19 14:22 Albuterol Sulfate (Albuterol 2.5mg/3ml Neb Ud) 2.5 mg HHN Q6H PRN PRN Reason: Shortness of Breath Albuterol/Ipratropium (Duoneb Neb) 3 ml HHN Q4HRT [facility] Stop: 04/28/19 14:59 Last Admin: 03/03/19 18:20 Dose: 3 ml Amitriptyline HCl (Elavil) 50 mg PO HS [facility] Stop: 04/24/19 20:59 Last Admin: 03/02/19 22:10 Dose: 50 mg Ascorbic Acid (Vitamin C) 500 mg PO DAILY [facility] Stop: 04/25/19 08:59 Last Admin: 03/03/19 09:07 Dose: 500 mg Aspirin (Aspirin Chewable) 81 mg PO DAILY [facility] Stop: 04/25/19 08:59 Last Admin: 03/03/19 09:07 Dose: 81 mg Baclofen (Lioresal) 10 mg PO Q8H [facility] Stop: 04/24/19 16:59 Last Admin: 03/03/19 16:22 Dose: 10 mg Bandage/Support Products (Hydrogel) 1 appl TP PRN PRN PRN Reason: PRESSURE WOUND CLEANSE Stop: 04/24/19 16:54 Budesonide (Pulmicort) 0.5 mg HHN BIDRT [facility] Stop: 04/25/19 18:59 Last Admin: 03/03/19 18:20 Dose: 0.5 mg [place] Oil/[place] Balsam/Trypsin (Venelex) 1 appl TP DAILY [facility] Stop: 04/24/19 16:29 Last Admin: 03/03/19 09:07 Dose: 1 appl Cholecalciferol (Vitamin D3) 1,000 iu PO DAILY [facility] Stop: 04/25/19 08:59 Last Admin: 03/03/19 09:06 Dose: 1,000 iu Docusate Sodium (Colace) 100 mg PO DAILY [facility] Stop: 04/25/19 08:59 Last Admin: 03/03/19 09:07 Dose: 100 mg Duloxetine HCl (Cymbalta) 30 mg PO DAILY [facility] Stop: 04/26/19 08:59 Last Admin: 03/03/19 09:06 Dose: 30 mg Hydralazine HCl (Apresoline 20 Mg/Ml) 10 mg IV Q4H PRN PRN Reason: HYPERTENSIVE Stop: 04/29/19 03:22 Last Admin: 02/28/19 17:22 Dose: 10 mg Hydromorphone HCl (Dilaudid) 2 mg IVP Q4HR PRN PRN Reason: Abdominal Pain Stop: 04/23/19 21:45 Last Admin: 03/03/19 18:01 Dose: 2 mg Ceftriaxone Sodium 1 gm/ (Sodium Chloride) 50 mls @ 100 mls/hr IV Q24HR [facility] Stop: 04/23/19 21:29 Last Admin: 03/02/19 22:10 Dose: 100 mls/hr Insulin Human Lispro (Humalog Insulin Sliding Scale) 0 units SUBQ ACHS [facility]; Protocol Stop: 04/24/19 07:29 Last Admin: 03/03/19 15:57 Dose: Not Given Lisinopril (Zestril) 10 mg PO DAILY [facility] Stop: 04/25/19 08:59 Last Admin: 03/03/19 09:06 Dose: 10 mg Lorazepam (Ativan) 1 mg IVP Q4HR PRN; Protocol PRN Reason: Agitation Stop: 04/29/19 03:18 Last Admin: 03/01/19 20:07 Dose: 1 mg Magnesium Hydroxide (Milk Of Magnesia) 30 ml PO HS PRN PRN Reason: Constipation Stop: 04/24/19 16:54 Neomycin Sulfate (Neomycin) 1,000 mg PO Q6HR [facility] Stop: 04/27/19 00:00 Last Admin: 03/03/19 17:47 Dose: 1,000 mg Pregabalin (Lyrica) 150 mg PO BID [facility] Stop: 04/24/19 16:59 Last Admin: 03/03/19 17:47 Dose: 150 mg Physical Exam: 58 y/o male patient has acute respiratory failure, copd, s/p mechanical ventilator after surgery , extubated. Patient has minimal cough with mild shortness of breath. General: alert HEENT: NC/AT, PERRLA Neck: Supple Lungs: other (Mild sob, minimal cough.) Cardiovascular: RRR, Normal S1, Normal S2, without murmur Abdomen: distended Extremities: excoriation Neurological: alert - Procedures Procedures: Procedures Procedure Code Date EXCISION OF RIGHT PELVIC BONE, OPEN APPROACH [id number] 10/03/18 EXCISION OF RIGHT UPPER FEMUR, OPEN APPROACH [id number] 07/25/18 INSPECTION OF ABDOMINAL WALL, PERC ENDO APPROACH [id number] 02/22/19 INSPECTION OF LOWER INTESTINAL TRACT, ENDO [id number] 05/20/18 INTRODUCE ADHESION BARRIER IN PERITON CAV, OPEN [id number] 02/22/19 REPAIR ABDOMINAL WALL, OPEN APPROACH [id number] 07/25/18 RESPIRATORY VENTILATION, 24-96 CONSECUTIVE HOURS [id number] 02/22/19 SUPPLEMENT ABDOMINAL WALL WITH NONAUT SUB, OPEN APPROACH [id number] 02/22/19 Internal Medicine Assmt/Plan - Assessment Assessment: Copd Acute respiratory failure bka right shape pressure stage IV diverting colostomy paranoid schizophrenia hypokalemia nicotine dependence diabetes mellitus - Plan Plan: Continuation of care continue present meds as directed Inhalation treatment and respiratory support continue nocturnal BiPAP aspiration precaution fall precaution supportive care continue present care management Nutritional Asmnt/Malnutr-PDOC - Dietary Evaluation Malnutrition Findings (Please click <Entered> for more info): Nutritional Asmnt/Malnutrition Start: 02/26/19 15: 22 Text: Status: Complete Freq: Protocol: Document 02/26/19 15:22 LCHENG (Rec: 02/26/19 15:54 JUNIOR [email or web address]) Nutritional Asmnt/Malnutrition Patient General Information Nutritional Screening Moderate Risk Diagnosis abd pain Pertinent Medical Hx/Surgical Hx DM2, dyslipidemia, hip ulcer, bi AKA, colostomy Subjective Information Pt was in OR for surgical repair of hernia at time of visit, transfered to ICU after surgery. On propofol and vent . adj BMI for bi AKA is 21.9 ( normal). Current Diet Order/ Nutrition Support NPO Pertinent Medications vit C, vit D3, colace, humalog , propofol, nacl 0.9% Pertinent Labs 4/5 Glucose 108, POC 82-149 Nutritional Hx/Data Height 1.83 m Height (Calculated Centimeters) 182.9 Current Weight (lbs) 58.967 kg Weight (Calculated Kilograms) 59.0 Weight (Calculated Grams) 42001.0 [place] Body Weight 178 Body Mass Index (BMI) 17.6 Weight Status Underweight GI Symptoms GI Symptoms None Last BM 4/4 Difficult in: None Skin Integrity/Comment: burn to left medial finger, scar to medial abdomen and left buttocks, pressure ulcer to right buttocks Current %PO Negligible < 25% Estimated Nutritional Goals BEE in Kcals: Using Current wt Calories/Kcals/Kg 30-35 Kcals Calculated 3513-9222 Protein: Using Current wt Protein g/k.2-1.4 Protein Calculated 71-83 Fluid: ml 1770-2065ml (1ml/kcal) Nutritional Problem 1. Problem Problem increased nutrition needs Etiology impaired skin integrity Signs/Symptoms: pressure ulcer, s/p surgery Malnutrition Alert Is there a minimum of two criteria No selected? Query Text:Check all the applicable criteria. A minimum of two criteria are recommended for diagnosis of either severe or non-severe malnutrition. Malnutrition Related to Morbid Obesity Malnutrition related to morbid obesity No Intervention/Recommendation Comments 1. Advance diet when medically appropriate and add Carlos BID for wound healing once diet advanced. 2. Monitor NPO status, wt, labs and skin integrity 3. F/U as high risk in 2-3 days Expected Outcomes/Goals Expected Outcomes/Goals 1. PO intake to meet at least 75% of nutritional needs. 2. Wt stability, skin to remain intact, labs to approach WNL.
[2019-03-03] MEDS: cefTRIAXone 1 GM in Sodium Chloride 0.9% 50 ML IV SCH (21:08)
[2019-03-04] MEDS: HYDROmorphone 2 mg/mL 1mL Vial IVP PRN ×5 (02:20→18:03)
[2019-03-04] MEDS: Albuterol/Ipratropium Neb 3 ML AERS HHN SCH ×5 (02:38→18:39)
[2019-03-04 05:36] LABS: % BASOPHILS 0.8 % (0.0-2.0); % EOSINOPHILS 4.3 % (0.0-5.0); % LYMPHOCYTES 15.3 % (20.0-50.0); % MONOCYTES 11.8 % (2.0-10.0); % NEUTROPHILS 67.8 % (40.0-80.0); BASOPHILE ABSOLUTE 0.1 Th/cumm (0-0.2); EOSINOPHILE ABSOLUTE 0.4 Th/cmm (0.1-0.4); HEMATOCRIT 36.4 % (41.0-60); LYMPHOCYTE ABSOLUTE 1.4 Th/cmm (1.5-3.0); MEAN CELL VOLUME 84.4 fl (80-99); MEAN CORPUSCULAR HEMOGLOBIN 27.7 pg (26.0-30.0); MEAN CORPUSCULAR HGB CONC 32.8 pg (28.0-36.0); MEAN PLATELET VOLUME 7.6 fl; MONOCYTE ABSOLUTE 1.1 Th/cmm (0.3-1.0); NEUTROPHILE ABSOLUTE 6.3 Th/cmm (1.8-8.0); PLATELET COUNT 276 Th/cmm (150-400); RED BLOOD COUNT 4.31 Mil/cmm (4.30-5.70); RED CELL DISTRIBUTION WIDTH 15.2 % (11.5-20.0); WHITE BLOOD COUNT 9.3 Th/cmm (4.8-10.8)
[2019-03-04] MEDS: Budesonide 0.5 Mg/2 mL Ud HHN SCH ×2 (07:08→18:39)
[2019-03-04] MEDS: INSULIN LISPRO SLIDING SCALE 100 UNITS/ML UNIT SUBQ SCH ×4 (08:17→20:44)
[2019-03-04] MEDS: Multivitamin w/ Minerals Tab PO SCH (10:07)
[2019-03-04] MEDS: Aspirin 81mg Chewable Tab PO SCH (10:07)
[2019-03-04] MEDS: Venelex 60gm Tube TP SCH (10:09)
[2019-03-04 11:20] LABS: ANION GAP 16.4 (7.0-16.0); BUN - UREA NITROGEN 6 mg/dL (7-25); CALCIUM SERUM 8.3 mg/dL (8.6-10.3); CHLORIDE 103 mEq/L (98-107); CREATININE - SERUM 0.6 mg/dL (0.7-1.3); GFR AFRICAN-AMERICAN > 60.0 ml/min (>90); GFR NON AFRICAN-AMERICAN > 60.0 ml/min; GLUCOSE 116 mg/dL (70-105); POTASSIUM SERUM 3.4 mEq/L (3.5-5.1); SODIUM SERUM 138 mEq/L (136-145)
--- NOTE | 2019-03-04 11:35 | General Progress Note ---
Subjective - Review of Systems Service Date: 03/04/19 Subjective: Patient still complains of abdominal pain no nausea vomiting Patient getting potassium supplement Patient tolerating liquids orally MRSA Positive nares Objective - Results Result Diagrams: 03/04/19 05:10 03/04/19 05:10 Recent Labs: Laboratory Last Values WBC 9.3 Th/cmm (4.8-10.8) 03/04/19 05:10 RBC 4.31 Mil/cmm (4.30-5.70) 03/04/19 05:10 Hgb 12.0 gm/dL (12-16) 03/04/19 05:10 Hct 36.4 % (41.0-60) L 03/04/19 05:10 MCV 84.4 fl (80-99) 03/04/19 05:10 MCH 27.7 pg (26.0-30.0) 03/04/19 05:10 MCHC Differential 32.8 pg (28.0-36.0) 03/04/19 05:10 RDW 15.2 % (11.5-20.0) 03/04/19 05:10 Plt Count 276 Th/cmm (150-400) 03/04/19 05:10 MPV 7.6 fl 03/04/19 05:10 Neutrophils % 67.8 % (40.0-80.0) 03/04/19 05:10 Band Neutrophils % 1 % (0-10) 02/27/19 04:50 Lymphocytes % 15.3 % (20.0-50.0) L 03/04/19 05:10 Monocytes % 11.8 % (2.0-10.0) H 03/04/19 05:10 Eosinophils % 4.3 % (0.0-5.0) 03/04/19 05:10 Basophils % 0.8 % (0.0-2.0) 03/04/19 05:10 Neutrophils (Manual) 85 % (40-80) H 02/28/19 04:10 Lymphocytes 7 % (20-50) L 02/28/19 04:10 Monocytes 8 % (2-10) 02/28/19 04:10 Eosinophils 0 % (0-5) 02/27/19 04:50 Basophils 0 % (0-3) 02/27/19 04:50 Platelet Estimate ADEQUATE (NORMAL) 02/27/19 04:50 PT 10.0 SECONDS (9.5-11.5) 02/25/19 06:00 INR 0.96 (0.5-1.4) 02/25/19 06:00 PTT (Actin FS) 31.5 SECONDS (26.0-38.0) 02/25/19 06:00 Specimen Source Arterial 03/01/19 09:00 Sample Site RB 03/01/19 09:00 pH 7.426 (7.35-7.45) 03/01/19 09:00 pCO2 37.5 mmHg (35.0-45.0) 03/01/19 09:00 pO2 55.7 mmHg (80.0-100.0) L 03/01/19 09:00 HCO3 24.1 mEq/L (20.0-26.0) 03/01/19 09:00 Base Excess 0.1 mEq/L (-3.0-3.0) 03/01/19 09:00 O2 Saturation 89.9 % (92.0-100.0) L 03/01/19 09:00 Steven Test NA 03/01/19 09:00 Vent Rate N 03/01/19 09:00 Inspired O2 21 03/01/19 09:00 Tidal Volume NA 03/01/19 09:00 PEEP NA 03/01/19 09:00 Pressure (ins/psv/peep) NA 03/01/19 09:00 Critical Value SH 03/01/19 09:00 Sodium 138 mEq/L (136-145) 03/04/19 05:10 Potassium 3.4 mEq/L (3.5-5.1) L 03/04/19 05:10 Chloride 103 mEq/L (98-107) 03/04/19 05:10 Carbon Dioxide 22.0 mEq/L (21.0-31.0) 03/04/19 05:10 Anion Gap 16.4 (7.0-16.0) H 03/04/19 05:10 BUN 6 mg/dL (7-25) L 03/04/19 05:10 Creatinine 0.6 mg/dL (0.7-1.3) L 03/04/19 05:10 Est GFR ( Amer) > 60.0 ml/min (>90) 03/04/19 05:10 Est GFR (Non-Af Amer) > 60.0 ml/min 03/04/19 05:10 BUN/Creatinine Ratio 10.0 03/04/19 05:10 Glucose 116 mg/dL (70-105) H 03/04/19 05:10 POC Glucose 130 MG/DL (70 - 105) H 03/04/19 07:33 Calcium 8.3 mg/dL (8.6-10.3) L 03/04/19 05:10 Total Bilirubin 0.5 mg/dL (0.3-1.0) 03/03/19 05:25 Direct Bilirubin 0.20 mg/dL (0.0-0.2) 03/01/19 05:10 AST 24 U/L (13-39) 03/03/19 05:25 ALT 20 U/L (7-52) 03/03/19 05:25 Alkaline Phosphatase 62 U/L (34-104) 03/03/19 05:25 Ammonia 52 umol/L (16-53) 03/01/19 05:10 Total Protein 5.8 gm/dL (6.0-8.3) L 03/03/19 05:25 Albumin 3.2 gm/dL (4.2-5.5) L 03/03/19 05:25 Globulin 2.6 gm/dL 03/03/19 05:25 Albumin/Globulin Ratio 1.2 (1.0-1.8) 03/03/19 05:25 Amylase 39 U/L (29-103) 02/22/19 17:50 Lipase 21 U/L (11-82) 02/22/19 17:50 Blood Type O NEGATIVE 02/25/19 06:00 Antibody Screen NEGATIVE 02/25/19 06:00 - Physical Exam Vitals and I&O: Vital Signs Temp 97.7 F 03/04/19 10:53 Pulse 79 03/04/19 10:53 Resp 19 03/04/19 10:53 BP 110/67 03/04/19 10:53 Pulse Ox 95 03/04/19 10:53 Intake & Output 03/03/19 03/04/19 03/04/19 18:59 06:59 18:59 Intake Total 200 675 Output Total 30 500 Balance 170 175 Weight (lbs) 33.112 kg 33.112 kg Intake: Oral 200 600 Other 75 Output: Drainage 30 left patrice 20 right patrice 10 Urine 0 Stool 500 Other: # Voids 2 Stool Characteristics Soft Soft Liquid Liquid Brown Brown Weight Source Bedscale Estimated Active Medications: Current Medications Acetaminophen (Tylenol Extra Strength) 1,000 mg PO Q4HR PRN PRN Reason: Pain (Moderate) Stop: 04/24/19 16:54 Acetaminophen (Tylenol) 650 mg PO DAILY [facility] Stop: 04/25/19 08:59 Last Admin: 03/04/19 10:09 Dose: Not Given Acetaminophen (Tylenol) 650 mg PO Q6H PRN PRN Reason: Fever Above 101 Stop: 04/27/19 14:22 Acetaminophen (Tylenol 650mg Supp) 650 mg RC Q4H PRN; Protocol PRN Reason: Fever > 101 Stop: 04/29/19 22:26 Acetaminophen/Hydrocodone Bitart ([place] 5mg/325mg) 1 tab PO Q4H PRN PRN Reason: Pain (SEVERE) Stop: 04/27/19 14:22 Albuterol Sulfate (Albuterol 2.5mg/3ml Neb Ud) 2.5 mg HHN Q6H PRN PRN Reason: Shortness of Breath Albuterol/Ipratropium (Duoneb Neb) 3 ml HHN Q4HRT [facility] Stop: 04/28/19 14:59 Last Admin: 03/04/19 10:45 Dose: 3 ml Amitriptyline HCl (Elavil) 50 mg PO HS [facility] Stop: 04/24/19 20:59 Last Admin: 03/03/19 21:10 Dose: 50 mg Ascorbic Acid (Vitamin C) 500 mg PO DAILY [facility] Stop: 04/25/19 08:59 Last Admin: 03/04/19 10:07 Dose: 500 mg Aspirin (Aspirin Chewable) 81 mg PO DAILY [facility] Stop: 04/25/19 08:59 Last Admin: 03/04/19 10:07 Dose: 81 mg Baclofen (Lioresal) 10 mg PO Q8H [facility] Stop: 04/24/19 16:59 Last Admin: 03/04/19 10:11 Dose: 10 mg Bandage/Support Products (Hydrogel) 1 appl TP PRN PRN PRN Reason: PRESSURE WOUND CLEANSE Stop: 04/24/19 16:54 Budesonide (Pulmicort) 0.5 mg HHN BIDRT [facility] Stop: 04/25/19 18:59 Last Admin: 03/04/19 07:08 Dose: 0.5 mg [place] Oil/[place] Balsam/Trypsin (Venelex) 1 appl TP DAILY [facility] Stop: 04/24/19 16:29 Last Admin: 03/04/19 10:09 Dose: 1 appl Cholecalciferol (Vitamin D3) 1,000 iu PO DAILY [facility] Stop: 04/25/19 08:59 Last Admin: 03/04/19 10:08 Dose: 1,000 iu Docusate Sodium (Colace) 100 mg PO DAILY [facility] Stop: 04/25/19 08:59 Last Admin: 03/04/19 10:08 Dose: Not Given Duloxetine HCl (Cymbalta) 30 mg PO DAILY [facility] Stop: 04/26/19 08:59 Last Admin: 03/04/19 10:08 Dose: 30 mg Hydralazine HCl (Apresoline 20 Mg/Ml) 10 mg IV Q4H PRN PRN Reason: HYPERTENSIVE Stop: 04/29/19 03:22 Last Admin: 02/28/19 17:22 Dose: 10 mg Hydromorphone HCl (Dilaudid) 2 mg IVP Q4HR PRN PRN Reason: Abdominal Pain Stop: 04/23/19 21:45 Last Admin: 03/04/19 10:05 Dose: 2 mg Ceftriaxone Sodium 1 gm/ (Sodium Chloride) 50 mls @ 100 mls/hr IV Q24HR [facility] Stop: 04/23/19 21:29 Last Admin: 03/03/19 21:08 Dose: 100 mls/hr Insulin Human Lispro (Humalog Insulin Sliding Scale) 0 units SUBQ ACHS [facility]; Protocol Stop: 04/24/19 07:29 Last Admin: 03/04/19 08:17 Dose: Not Given Lisinopril (Zestril) 10 mg PO DAILY [facility] Stop: 04/25/19 08:59 Last Admin: 03/04/19 10:08 Dose: 10 mg Lorazepam (Ativan) 1 mg IVP Q4HR PRN; Protocol PRN Reason: Agitation Stop: 04/29/19 03:18 Last Admin: 03/01/19 20:07 Dose: 1 mg Magnesium Hydroxide (Milk Of Magnesia) 30 ml PO HS PRN PRN Reason: Constipation Stop: 04/24/19 16:54 Neomycin Sulfate (Neomycin) 1,000 mg PO Q6HR [facility] Stop: 04/27/19 00:00 Last Admin: 03/04/19 06:00 Dose: 1,000 mg Pregabalin (Lyrica) 150 mg PO BID [facility] Stop: 04/24/19 16:59 Last Admin: 03/04/19 10:07 Dose: 150 mg General: No acute distress HEENT: Mucous membr. moist/pink Neck: Supple, JVD, +2 carotid pulse wo bruit (flat) Cardiovascular: Normal S1, Normal S2, Systolic murmurs Lungs: Clear to auscultation, Normal air movement Abdomen: Bowel sounds, Soft, Tender, Other (scar from surgery) Extremities: Other (no pedal edema) Neurological: Strength at 5/5 X4 ext, Normal tone, Cranial nerves 3-12 NL, Reflexes 2+ - Procedures Procedures: Procedures Procedure Code Date EXCISION OF RIGHT PELVIC BONE, OPEN APPROACH [id number] 10/03/18 EXCISION OF RIGHT UPPER FEMUR, OPEN APPROACH [id number] 07/25/18 INSPECTION OF ABDOMINAL WALL, PERC ENDO APPROACH [id number] 02/22/19 INSPECTION OF LOWER INTESTINAL TRACT, ENDO [id number] 05/20/18 INTRODUCE ADHESION BARRIER IN PERITON CAV, OPEN [id number] 02/22/19 REPAIR ABDOMINAL WALL, OPEN APPROACH [id number] 07/25/18 RESPIRATORY VENTILATION, 24-96 CONSECUTIVE HOURS [id number] 02/22/19 SUPPLEMENT ABDOMINAL WALL WITH NONAUT SUB, OPEN APPROACH [id number] 02/22/19 Assessment/Plan - Problem List Patient Problems: All Active Problems ABDOMINAL PAIN, HERNIA RECURRENCE (Acute) - Assessment Assessment: Acute respiratory failure off ventilatory Ventral hernia repair Bilateral above-knee amputation Diabetes mellitus type 2 Protein calorie malnutrition 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 Paranoid schizophrenia Nicotine dependence Hypokalemia MRSA nares positive - Plan Plan: Continue present management Pain management Potassium supplement Nutritional Asmnt/Malnutr-PDOC - Dietary Evaluation Malnutrition Findings (Please click <Entered> for more info): Nutritional Asmnt/Malnutrition Start: 02/26/19 15: 22 Text: Status: Complete Freq: Protocol: Document 02/26/19 15:22 LCKRISTIG (Rec: 02/26/19 15:54 LCHENG [email or web address]) Nutritional Asmnt/Malnutrition Patient General Information Nutritional Screening Moderate Risk Diagnosis abd pain Pertinent Medical Hx/Surgical Hx DM2, dyslipidemia, hip ulcer, bi AKA, colostomy Subjective Information Pt was in OR for surgical repair of hernia at time of visit, transfered to ICU after surgery. On propofol and vent . adj BMI for bi AKA is 21.9 ( normal). Current Diet Order/ Nutrition Support NPO Pertinent Medications vit C, vit D3, colace, humalog , propofol, nacl 0.9% Pertinent Labs 4/5 Glucose 108, POC 82-149 Nutritional Hx/Data Height 1.83 m Height (Calculated Centimeters) 182.9 Current Weight (lbs) 58.967 kg Weight (Calculated Kilograms) 59.0 Weight (Calculated Grams) 08486.0 [place] Body Weight 178 Body Mass Index (BMI) 17.6 Weight Status Underweight GI Symptoms GI Symptoms None Last BM 4/4 Difficult in: None Skin Integrity/Comment: burn to left medial finger, scar to medial abdomen and left buttocks, pressure ulcer to right buttocks Current %PO Negligible < 25% Estimated Nutritional Goals BEE in Kcals: Using Current wt Calories/Kcals/Kg 30-35 Kcals Calculated 1774-5511 Protein: Using Current wt Protein g/k.2-1.4 Protein Calculated 71-83 Fluid: ml 1770-2065ml (1ml/kcal) Nutritional Problem 1. Problem Problem increased nutrition needs Etiology impaired skin integrity Signs/Symptoms: pressure ulcer, s/p surgery Malnutrition Alert Is there a minimum of two criteria No selected? Query Text:Check all the applicable criteria. A minimum of two criteria are recommended for diagnosis of either severe or non-severe malnutrition. Malnutrition Related to Morbid Obesity Malnutrition related to morbid obesity No Intervention/Recommendation Comments 1. Advance diet when medically appropriate and add [place] BID for wound healing once diet advanced. 2. Monitor NPO status, wt, labs and skin integrity 3. F/U as high risk in 2-3 days Expected Outcomes/Goals Expected Outcomes/Goals 1. PO intake to meet at least 75% of nutritional needs. 2. Wt stability, skin to remain intact, labs to approach WNL.
--- NOTE | 2019-03-04 11:36 | General Progress Note ---
Subjective - Review of Systems Service Date: 03/04/19 Subjective: Patient still complains of abdominal pain no nausea vomiting Patient getting potassium supplement Patient tolerating liquids orally MRSA Positive nares Objective - Results Result Diagrams: 03/04/19 05:10 03/04/19 05:10 Recent Labs: Laboratory Last Values WBC 9.3 Th/cmm (4.8-10.8) 03/04/19 05:10 RBC 4.31 Mil/cmm (4.30-5.70) 03/04/19 05:10 Hgb 12.0 gm/dL (12-16) 03/04/19 05:10 Hct 36.4 % (41.0-60) L 03/04/19 05:10 MCV 84.4 fl (80-99) 03/04/19 05:10 MCH 27.7 pg (26.0-30.0) 03/04/19 05:10 MCHC Differential 32.8 pg (28.0-36.0) 03/04/19 05:10 RDW 15.2 % (11.5-20.0) 03/04/19 05:10 Plt Count 276 Th/cmm (150-400) 03/04/19 05:10 MPV 7.6 fl 03/04/19 05:10 Neutrophils % 67.8 % (40.0-80.0) 03/04/19 05:10 Band Neutrophils % 1 % (0-10) 02/27/19 04:50 Lymphocytes % 15.3 % (20.0-50.0) L 03/04/19 05:10 Monocytes % 11.8 % (2.0-10.0) H 03/04/19 05:10 Eosinophils % 4.3 % (0.0-5.0) 03/04/19 05:10 Basophils % 0.8 % (0.0-2.0) 03/04/19 05:10 Neutrophils (Manual) 85 % (40-80) H 02/28/19 04:10 Lymphocytes 7 % (20-50) L 02/28/19 04:10 Monocytes 8 % (2-10) 02/28/19 04:10 Eosinophils 0 % (0-5) 02/27/19 04:50 Basophils 0 % (0-3) 02/27/19 04:50 Platelet Estimate ADEQUATE (NORMAL) 02/27/19 04:50 PT 10.0 SECONDS (9.5-11.5) 02/25/19 06:00 INR 0.96 (0.5-1.4) 02/25/19 06:00 PTT (Actin FS) 31.5 SECONDS (26.0-38.0) 02/25/19 06:00 Specimen Source Arterial 03/01/19 09:00 Sample Site RB 03/01/19 09:00 pH 7.426 (7.35-7.45) 03/01/19 09:00 pCO2 37.5 mmHg (35.0-45.0) 03/01/19 09:00 pO2 55.7 mmHg (80.0-100.0) L 03/01/19 09:00 HCO3 24.1 mEq/L (20.0-26.0) 03/01/19 09:00 Base Excess 0.1 mEq/L (-3.0-3.0) 03/01/19 09:00 O2 Saturation 89.9 % (92.0-100.0) L 03/01/19 09:00 Steven Test NA 03/01/19 09:00 Vent Rate N 03/01/19 09:00 Inspired O2 21 03/01/19 09:00 Tidal Volume NA 03/01/19 09:00 PEEP NA 03/01/19 09:00 Pressure (ins/psv/peep) NA 03/01/19 09:00 Critical Value SH 03/01/19 09:00 Sodium 138 mEq/L (136-145) 03/04/19 05:10 Potassium 3.4 mEq/L (3.5-5.1) L 03/04/19 05:10 Chloride 103 mEq/L (98-107) 03/04/19 05:10 Carbon Dioxide 22.0 mEq/L (21.0-31.0) 03/04/19 05:10 Anion Gap 16.4 (7.0-16.0) H 03/04/19 05:10 BUN 6 mg/dL (7-25) L 03/04/19 05:10 Creatinine 0.6 mg/dL (0.7-1.3) L 03/04/19 05:10 Est GFR ( Amer) > 60.0 ml/min (>90) 03/04/19 05:10 Est GFR (Non-Af Amer) > 60.0 ml/min 03/04/19 05:10 BUN/Creatinine Ratio 10.0 03/04/19 05:10 Glucose 116 mg/dL (70-105) H 03/04/19 05:10 POC Glucose 130 MG/DL (70 - 105) H 03/04/19 07:33 Calcium 8.3 mg/dL (8.6-10.3) L 03/04/19 05:10 Total Bilirubin 0.5 mg/dL (0.3-1.0) 03/03/19 05:25 Direct Bilirubin 0.20 mg/dL (0.0-0.2) 03/01/19 05:10 AST 24 U/L (13-39) 03/03/19 05:25 ALT 20 U/L (7-52) 03/03/19 05:25 Alkaline Phosphatase 62 U/L (34-104) 03/03/19 05:25 Ammonia 52 umol/L (16-53) 03/01/19 05:10 Total Protein 5.8 gm/dL (6.0-8.3) L 03/03/19 05:25 Albumin 3.2 gm/dL (4.2-5.5) L 03/03/19 05:25 Globulin 2.6 gm/dL 03/03/19 05:25 Albumin/Globulin Ratio 1.2 (1.0-1.8) 03/03/19 05:25 Amylase 39 U/L (29-103) 02/22/19 17:50 Lipase 21 U/L (11-82) 02/22/19 17:50 Blood Type O NEGATIVE 02/25/19 06:00 Antibody Screen NEGATIVE 02/25/19 06:00 - Physical Exam Vitals and I&O: Vital Signs Temp 97.7 F 03/04/19 10:53 Pulse 79 03/04/19 10:53 Resp 19 03/04/19 10:53 BP 110/67 03/04/19 10:53 Pulse Ox 95 03/04/19 10:53 Intake & Output 03/03/19 03/04/19 03/04/19 18:59 06:59 18:59 Intake Total 200 675 Output Total 30 500 Balance 170 175 Weight (lbs) 33.112 kg 33.112 kg Intake: Oral 200 600 Other 75 Output: Drainage 30 left patrice 20 right patrice 10 Urine 0 Stool 500 Other: # Voids 2 Stool Characteristics Soft Soft Liquid Liquid Brown Brown Weight Source Bedscale Estimated Active Medications: Current Medications Acetaminophen (Tylenol Extra Strength) 1,000 mg PO Q4HR PRN PRN Reason: Pain (Moderate) Stop: 04/24/19 16:54 Acetaminophen (Tylenol) 650 mg PO DAILY [facility] Stop: 04/25/19 08:59 Last Admin: 03/04/19 10:09 Dose: Not Given Acetaminophen (Tylenol) 650 mg PO Q6H PRN PRN Reason: Fever Above 101 Stop: 04/27/19 14:22 Acetaminophen (Tylenol 650mg Supp) 650 mg RC Q4H PRN; Protocol PRN Reason: Fever > 101 Stop: 04/29/19 22:26 Acetaminophen/Hydrocodone Bitart ([place] 5mg/325mg) 1 tab PO Q4H PRN PRN Reason: Pain (SEVERE) Stop: 04/27/19 14:22 Albuterol Sulfate (Albuterol 2.5mg/3ml Neb Ud) 2.5 mg HHN Q6H PRN PRN Reason: Shortness of Breath Albuterol/Ipratropium (Duoneb Neb) 3 ml HHN Q4HRT [facility] Stop: 04/28/19 14:59 Last Admin: 03/04/19 10:45 Dose: 3 ml Amitriptyline HCl (Elavil) 50 mg PO HS [facility] Stop: 04/24/19 20:59 Last Admin: 03/03/19 21:10 Dose: 50 mg Ascorbic Acid (Vitamin C) 500 mg PO DAILY [facility] Stop: 04/25/19 08:59 Last Admin: 03/04/19 10:07 Dose: 500 mg Aspirin (Aspirin Chewable) 81 mg PO DAILY [facility] Stop: 04/25/19 08:59 Last Admin: 03/04/19 10:07 Dose: 81 mg Baclofen (Lioresal) 10 mg PO Q8H [facility] Stop: 04/24/19 16:59 Last Admin: 03/04/19 10:11 Dose: 10 mg Bandage/Support Products (Hydrogel) 1 appl TP PRN PRN PRN Reason: PRESSURE WOUND CLEANSE Stop: 04/24/19 16:54 Budesonide (Pulmicort) 0.5 mg HHN BIDRT [facility] Stop: 04/25/19 18:59 Last Admin: 03/04/19 07:08 Dose: 0.5 mg [place] Oil/[place] Balsam/Trypsin (Venelex) 1 appl TP DAILY [facility] Stop: 04/24/19 16:29 Last Admin: 03/04/19 10:09 Dose: 1 appl Cholecalciferol (Vitamin D3) 1,000 iu PO DAILY [facility] Stop: 04/25/19 08:59 Last Admin: 03/04/19 10:08 Dose: 1,000 iu Docusate Sodium (Colace) 100 mg PO DAILY [facility] Stop: 04/25/19 08:59 Last Admin: 03/04/19 10:08 Dose: Not Given Duloxetine HCl (Cymbalta) 30 mg PO DAILY [facility] Stop: 04/26/19 08:59 Last Admin: 03/04/19 10:08 Dose: 30 mg Hydralazine HCl (Apresoline 20 Mg/Ml) 10 mg IV Q4H PRN PRN Reason: HYPERTENSIVE Stop: 04/29/19 03:22 Last Admin: 02/28/19 17:22 Dose: 10 mg Hydromorphone HCl (Dilaudid) 2 mg IVP Q4HR PRN PRN Reason: Abdominal Pain Stop: 04/23/19 21:45 Last Admin: 03/04/19 10:05 Dose: 2 mg Ceftriaxone Sodium 1 gm/ (Sodium Chloride) 50 mls @ 100 mls/hr IV Q24HR [facility] Stop: 04/23/19 21:29 Last Admin: 03/03/19 21:08 Dose: 100 mls/hr Insulin Human Lispro (Humalog Insulin Sliding Scale) 0 units SUBQ ACHS [facility]; Protocol Stop: 04/24/19 07:29 Last Admin: 03/04/19 08:17 Dose: Not Given Lisinopril (Zestril) 10 mg PO DAILY [facility] Stop: 04/25/19 08:59 Last Admin: 03/04/19 10:08 Dose: 10 mg Lorazepam (Ativan) 1 mg IVP Q4HR PRN; Protocol PRN Reason: Agitation Stop: 04/29/19 03:18 Last Admin: 03/01/19 20:07 Dose: 1 mg Magnesium Hydroxide (Milk Of Magnesia) 30 ml PO HS PRN PRN Reason: Constipation Stop: 04/24/19 16:54 Neomycin Sulfate (Neomycin) 1,000 mg PO Q6HR [facility] Stop: 04/27/19 00:00 Last Admin: 03/04/19 06:00 Dose: 1,000 mg Pregabalin (Lyrica) 150 mg PO BID [facility] Stop: 04/24/19 16:59 Last Admin: 03/04/19 10:07 Dose: 150 mg General: No acute distress HEENT: Mucous membr. moist/pink Neck: Supple, JVD, +2 carotid pulse wo bruit (flat) Cardiovascular: Normal S1, Normal S2, Systolic murmurs Lungs: Clear to auscultation, Normal air movement Abdomen: Bowel sounds, Soft, Tender, Other (scar from surgery) Extremities: Other (no pedal edema) Neurological: Strength at 5/5 X4 ext, Normal tone, Cranial nerves 3-12 NL, Reflexes 2+ - Procedures Procedures: Procedures Procedure Code Date EXCISION OF RIGHT PELVIC BONE, OPEN APPROACH [id number] 10/03/18 EXCISION OF RIGHT UPPER FEMUR, OPEN APPROACH [id number] 07/25/18 INSPECTION OF ABDOMINAL WALL, PERC ENDO APPROACH [id number] 02/22/19 INSPECTION OF LOWER INTESTINAL TRACT, ENDO [id number] 05/20/18 INTRODUCE ADHESION BARRIER IN PERITON CAV, OPEN [id number] 02/22/19 REPAIR ABDOMINAL WALL, OPEN APPROACH [id number] 07/25/18 RESPIRATORY VENTILATION, 24-96 CONSECUTIVE HOURS [id number] 02/22/19 SUPPLEMENT ABDOMINAL WALL WITH NONAUT SUB, OPEN APPROACH [id number] 02/22/19 Assessment/Plan - Problem List Patient Problems: All Active Problems ABDOMINAL PAIN, HERNIA RECURRENCE (Acute) - Assessment Assessment: Acute respiratory failure off ventilatory Ventral hernia repair Bilateral above-knee amputation Diabetes mellitus type 2 Protein calorie malnutrition 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 Paranoid schizophrenia Nicotine dependence Hypokalemia MRSA nares positive - Plan Plan: Continue present management Pain management Potassium supplement Nutritional Asmnt/Malnutr-PDOC - Dietary Evaluation Malnutrition Findings (Please click <Entered> for more info): Nutritional Asmnt/Malnutrition Start: 02/26/19 15: 22 Text: Status: Complete Freq: Protocol: Document 02/26/19 15:22 LCKRISTIG (Rec: 02/26/19 15:54 LCHENG [email or web address]) Nutritional Asmnt/Malnutrition Patient General Information Nutritional Screening Moderate Risk Diagnosis abd pain Pertinent Medical Hx/Surgical Hx DM2, dyslipidemia, hip ulcer, bi AKA, colostomy Subjective Information Pt was in OR for surgical repair of hernia at time of visit, transfered to ICU after surgery. On propofol and vent . adj BMI for bi AKA is 21.9 ( normal). Current Diet Order/ Nutrition Support NPO Pertinent Medications vit C, vit D3, colace, humalog , propofol, nacl 0.9% Pertinent Labs 4/5 Glucose 108, POC 82-149 Nutritional Hx/Data Height 1.83 m Height (Calculated Centimeters) 182.9 Current Weight (lbs) 58.967 kg Weight (Calculated Kilograms) 59.0 Weight (Calculated Grams) 27554.0 [place] Body Weight 178 Body Mass Index (BMI) 17.6 Weight Status Underweight GI Symptoms GI Symptoms None Last BM 4/4 Difficult in: None Skin Integrity/Comment: burn to left medial finger, scar to medial abdomen and left buttocks, pressure ulcer to right buttocks Current %PO Negligible < 25% Estimated Nutritional Goals BEE in Kcals: Using Current wt Calories/Kcals/Kg 30-35 Kcals Calculated 2270-6594 Protein: Using Current wt Protein g/k.2-1.4 Protein Calculated 71-83 Fluid: ml 1770-2065ml (1ml/kcal) Nutritional Problem 1. Problem Problem increased nutrition needs Etiology impaired skin integrity Signs/Symptoms: pressure ulcer, s/p surgery Malnutrition Alert Is there a minimum of two criteria No selected? Query Text:Check all the applicable criteria. A minimum of two criteria are recommended for diagnosis of either severe or non-severe malnutrition. Malnutrition Related to Morbid Obesity Malnutrition related to morbid obesity No Intervention/Recommendation Comments 1. Advance diet when medically appropriate and add Carlos BID for wound healing once diet advanced. 2. Monitor NPO status, wt, labs and skin integrity 3. F/U as high risk in 2-3 days Expected Outcomes/Goals Expected Outcomes/Goals 1. PO intake to meet at least 75% of nutritional needs. 2. Wt stability, skin to remain intact, labs to approach WNL.
[2019-03-04] MEDS ORDERED: Potassium Chloride 20 mEq ER Tab PO ONE (11:41)
--- NOTE | 2019-03-04 14:30 | Progress Notes ---
DATE: 03/04/2019 PULMONARY PROGRESS NOTE PROBLEM LIST: 1. Respiratory failure, improved, status post off mechanical ventilation. 2. Chronic obstructive pulmonary disease. 3. Major abdominal surgery. SYMPTOMS: Nil, feeling okay, offers no specific new symptoms. PHYSICAL EXAMINATION: VITAL SIGNS: Temperature is 98.2, blood pressure 100/62, saturation 98% on room air. NECK: Veins not visualized. CHEST: Shows diminished air entry. No other adventitious breath sounds. HEART: Regular. ABDOMEN: Soft, nontender. LABORATORY DATA: White count is 9.3, hemoglobin is 12 grams and electrolytes shows potassium 6.4. IMPRESSION: The patient is clinically stable, improving. PLANS AND SUGGESTIONS: We will go ahead and continue current treatment and OT, PT, etc., and go from there. JOB# [id number]
--- NOTE | 2019-03-04 14:43 | General Progress Note ---
Subjective - Review of Systems Service Date: 03/04/19 Events since last encounter: improving daily colostomy working wound looks good PATRICE drainage is less but still too much to be removed plan to LTAC today Subjective: patient extubated wants to eat right away will have to pass gas in the colostomy bag first wound appear good at this time vitals good Objective - Results Result Diagrams: 03/04/19 05:10 03/04/19 05:10 Recent Labs: Laboratory Last Values WBC 9.3 Th/cmm (4.8-10.8) 03/04/19 05:10 RBC 4.31 Mil/cmm (4.30-5.70) 03/04/19 05:10 Hgb 12.0 gm/dL (12-16) 03/04/19 05:10 Hct 36.4 % (41.0-60) L 03/04/19 05:10 MCV 84.4 fl (80-99) 03/04/19 05:10 MCH 27.7 pg (26.0-30.0) 03/04/19 05:10 MCHC Differential 32.8 pg (28.0-36.0) 03/04/19 05:10 RDW 15.2 % (11.5-20.0) 03/04/19 05:10 Plt Count 276 Th/cmm (150-400) 03/04/19 05:10 MPV 7.6 fl 03/04/19 05:10 Neutrophils % 67.8 % (40.0-80.0) 03/04/19 05:10 Band Neutrophils % 1 % (0-10) 02/27/19 04:50 Lymphocytes % 15.3 % (20.0-50.0) L 03/04/19 05:10 Monocytes % 11.8 % (2.0-10.0) H 03/04/19 05:10 Eosinophils % 4.3 % (0.0-5.0) 03/04/19 05:10 Basophils % 0.8 % (0.0-2.0) 03/04/19 05:10 Neutrophils (Manual) 85 % (40-80) H 02/28/19 04:10 Lymphocytes 7 % (20-50) L 02/28/19 04:10 Monocytes 8 % (2-10) 02/28/19 04:10 Eosinophils 0 % (0-5) 02/27/19 04:50 Basophils 0 % (0-3) 02/27/19 04:50 Platelet Estimate ADEQUATE (NORMAL) 02/27/19 04:50 PT 10.0 SECONDS (9.5-11.5) 02/25/19 06:00 INR 0.96 (0.5-1.4) 02/25/19 06:00 PTT (Actin FS) 31.5 SECONDS (26.0-38.0) 02/25/19 06:00 Specimen Source Arterial 03/01/19 09:00 Sample Site RB 03/01/19 09:00 pH 7.426 (7.35-7.45) 03/01/19 09:00 pCO2 37.5 mmHg (35.0-45.0) 03/01/19 09:00 pO2 55.7 mmHg (80.0-100.0) L 03/01/19 09:00 HCO3 24.1 mEq/L (20.0-26.0) 03/01/19 09:00 Base Excess 0.1 mEq/L (-3.0-3.0) 03/01/19 09:00 O2 Saturation 89.9 % (92.0-100.0) L 03/01/19 09:00 Steven Test NA 03/01/19 09:00 Vent Rate N 03/01/19 09:00 Inspired O2 21 03/01/19 09:00 Tidal Volume NA 03/01/19 09:00 PEEP NA 03/01/19 09:00 Pressure (ins/psv/peep) NA 03/01/19 09:00 Critical Value SH 03/01/19 09:00 Sodium 138 mEq/L (136-145) 03/04/19 05:10 Potassium 3.4 mEq/L (3.5-5.1) L 03/04/19 05:10 Chloride 103 mEq/L (98-107) 03/04/19 05:10 Carbon Dioxide 22.0 mEq/L (21.0-31.0) 03/04/19 05:10 Anion Gap 16.4 (7.0-16.0) H 03/04/19 05:10 BUN 6 mg/dL (7-25) L 03/04/19 05:10 Creatinine 0.6 mg/dL (0.7-1.3) L 03/04/19 05:10 Est GFR ( Amer) > 60.0 ml/min (>90) 03/04/19 05:10 Est GFR (Non-Af Amer) > 60.0 ml/min 03/04/19 05:10 BUN/Creatinine Ratio 10.0 03/04/19 05:10 Glucose 116 mg/dL (70-105) H 03/04/19 05:10 POC Glucose 110 MG/DL (70 - 105) H 03/04/19 12:04 Calcium 8.3 mg/dL (8.6-10.3) L 03/04/19 05:10 Total Bilirubin 0.5 mg/dL (0.3-1.0) 03/03/19 05:25 Direct Bilirubin 0.20 mg/dL (0.0-0.2) 03/01/19 05:10 AST 24 U/L (13-39) 03/03/19 05:25 ALT 20 U/L (7-52) 03/03/19 05:25 Alkaline Phosphatase 62 U/L (34-104) 03/03/19 05:25 Ammonia 52 umol/L (16-53) 03/01/19 05:10 Total Protein 5.8 gm/dL (6.0-8.3) L 03/03/19 05:25 Albumin 3.2 gm/dL (4.2-5.5) L 03/03/19 05:25 Globulin 2.6 gm/dL 03/03/19 05:25 Albumin/Globulin Ratio 1.2 (1.0-1.8) 03/03/19 05:25 Amylase 39 U/L (29-103) 02/22/19 17:50 Lipase 21 U/L (11-82) 02/22/19 17:50 Blood Type O NEGATIVE 02/25/19 06:00 Antibody Screen NEGATIVE 02/25/19 06:00 - Physical Exam Vitals and I&O: Vital Signs Temp 98.2 F 03/04/19 11:52 Pulse 99 03/04/19 11:52 Resp 19 03/04/19 11:52 BP 100/62 03/04/19 11:52 Pulse Ox 98 03/04/19 11:52 Intake & Output 03/03/19 03/04/19 03/04/19 18:59 06:59 18:59 Intake Total 200 675 Output Total 30 500 Balance 170 175 Weight (lbs) 73 lb 73 lb Intake: Oral 200 600 Other 75 Output: Drainage 30 left patrice 20 right patrice 10 Urine 0 Stool 500 Other: # Voids 2 Stool Characteristics Soft Soft Liquid Liquid Brown Brown Weight Source Bedscale Estimated Active Medications: Current Medications Acetaminophen (Tylenol Extra Strength) 1,000 mg PO Q4HR PRN PRN Reason: Pain (Moderate) Stop: 04/24/19 16:54 Acetaminophen (Tylenol) 650 mg PO DAILY [facility] Stop: 04/25/19 08:59 Last Admin: 03/04/19 10:09 Dose: Not Given Acetaminophen (Tylenol) 650 mg PO Q6H PRN PRN Reason: Fever Above 101 Stop: 04/27/19 14:22 Acetaminophen (Tylenol 650mg Supp) 650 mg RC Q4H PRN; Protocol PRN Reason: Fever > 101 Stop: 04/29/19 22:26 Acetaminophen/Hydrocodone Bitart ([place] 5mg/325mg) 1 tab PO Q4H PRN PRN Reason: Pain (SEVERE) Stop: 04/27/19 14:22 Albuterol Sulfate (Albuterol 2.5mg/3ml Neb Ud) 2.5 mg HHN Q6H PRN PRN Reason: Shortness of Breath Albuterol/Ipratropium (Duoneb Neb) 3 ml HHN Q4HRT [facility] Stop: 04/28/19 14:59 Last Admin: 03/04/19 14:04 Dose: 3 ml Amitriptyline HCl (Elavil) 50 mg PO HS [facility] Stop: 04/24/19 20:59 Last Admin: 03/03/19 21:10 Dose: 50 mg Ascorbic Acid (Vitamin C) 500 mg PO DAILY [facility] Stop: 04/25/19 08:59 Last Admin: 03/04/19 10:07 Dose: 500 mg Aspirin (Aspirin Chewable) 81 mg PO DAILY [facility] Stop: 04/25/19 08:59 Last Admin: 03/04/19 10:07 Dose: 81 mg Baclofen (Lioresal) 10 mg PO Q8H [facility] Stop: 04/24/19 16:59 Last Admin: 03/04/19 10:11 Dose: 10 mg Bandage/Support Products (Hydrogel) 1 appl TP PRN PRN PRN Reason: PRESSURE WOUND CLEANSE Stop: 04/24/19 16:54 Budesonide (Pulmicort) 0.5 mg HHN BIDRT [facility] Stop: 04/25/19 18:59 Last Admin: 03/04/19 07:08 Dose: 0.5 mg [place] Oil/[place] Balsam/Trypsin (Venelex) 1 appl TP DAILY [facility] Stop: 04/24/19 16:29 Last Admin: 03/04/19 10:09 Dose: 1 appl Cholecalciferol (Vitamin D3) 1,000 iu PO DAILY [facility] Stop: 04/25/19 08:59 Last Admin: 03/04/19 10:08 Dose: 1,000 iu Docusate Sodium (Colace) 100 mg PO DAILY [facility] Stop: 04/25/19 08:59 Last Admin: 03/04/19 10:08 Dose: Not Given Duloxetine HCl (Cymbalta) 30 mg PO DAILY [facility] Stop: 04/26/19 08:59 Last Admin: 03/04/19 10:08 Dose: 30 mg Hydralazine HCl (Apresoline 20 Mg/Ml) 10 mg IV Q4H PRN PRN Reason: HYPERTENSIVE Stop: 04/29/19 03:22 Last Admin: 02/28/19 17:22 Dose: 10 mg Hydromorphone HCl (Dilaudid) 2 mg IVP Q4HR PRN PRN Reason: Abdominal Pain Stop: 04/23/19 21:45 Last Admin: 03/04/19 14:08 Dose: 2 mg Ceftriaxone Sodium 1 gm/ (Sodium Chloride) 50 mls @ 100 mls/hr IV Q24HR [facility] Stop: 04/23/19 21:29 Last Admin: 03/03/19 21:08 Dose: 100 mls/hr Insulin Human Lispro (Humalog Insulin Sliding Scale) 0 units SUBQ ACHS [facility]; Protocol Stop: 04/24/19 07:29 Last Admin: 03/04/19 12:13 Dose: Not Given Lisinopril (Zestril) 10 mg PO DAILY [facility] Stop: 04/25/19 08:59 Last Admin: 03/04/19 10:08 Dose: 10 mg Lorazepam (Ativan) 1 mg IVP Q4HR PRN; Protocol PRN Reason: Agitation Stop: 04/29/19 03:18 Last Admin: 03/01/19 20:07 Dose: 1 mg Magnesium Hydroxide (Milk Of Magnesia) 30 ml PO HS PRN PRN Reason: Constipation Stop: 04/24/19 16:54 Neomycin Sulfate (Neomycin) 1,000 mg PO Q6HR [facility] Stop: 04/27/19 00:00 Last Admin: 03/04/19 12:02 Dose: 1,000 mg Pregabalin (Lyrica) 150 mg PO BID [facility] Stop: 04/24/19 16:59 Last Admin: 03/04/19 10:07 Dose: 150 mg General: No acute distress HEENT: Mucous membr. moist/pink Neck: Supple, JVD, +2 carotid pulse wo bruit (flat) Cardiovascular: Normal S1, Normal S2, Systolic murmurs Lungs: Clear to auscultation, Normal air movement Abdomen: Bowel sounds, Soft, Tender, Other (scar from surgery) Extremities: Other (no pedal edema) Neurological: Strength at 5/5 X4 ext, Normal tone, Cranial nerves 3-12 NL, Reflexes 2+ - Procedures Procedures: Procedures Procedure Code Date EXCISION OF RIGHT PELVIC BONE, OPEN APPROACH [id number] 10/03/18 EXCISION OF RIGHT UPPER FEMUR, OPEN APPROACH [id number] 07/25/18 INSPECTION OF ABDOMINAL WALL, PERC ENDO APPROACH [id number] 02/22/19 INSPECTION OF LOWER INTESTINAL TRACT, ENDO [id number] 05/20/18 INTRODUCE ADHESION BARRIER IN PERITON CAV, OPEN [id number] 02/22/19 REPAIR ABDOMINAL WALL, OPEN APPROACH [id number] 07/25/18 RESPIRATORY VENTILATION, 24-96 CONSECUTIVE HOURS [id number] 02/22/19 SUPPLEMENT ABDOMINAL WALL WITH NONAUT SUB, OPEN APPROACH [id number] 02/22/19 Assessment/Plan - Problem List Patient Problems: All Active Problems ABDOMINAL PAIN, HERNIA RECURRENCE (Acute) - Assessment Assessment: post op day 2 extubated today doing well - Plan Plan: continue to monitor gi function and advance diet only when able to pass gas in the colostomy starting with clear fluids Nutritional Asmnt/Malnutr-PDOC - Dietary Evaluation Malnutrition Findings (Please click <Entered> for more info): Nutritional Asmnt/Malnutrition Start: 02/26/19 15: 22 Text: Status: Complete Freq: Protocol: Document 02/26/19 15:22 LCHENG (Rec: 02/26/19 15:54 [facility] [email or web address]) Nutritional Asmnt/Malnutrition Patient General Information Nutritional Screening Moderate Risk Diagnosis abd pain Pertinent Medical Hx/Surgical Hx DM2, dyslipidemia, hip ulcer, bi AKA, colostomy Subjective Information Pt was in OR for surgical repair of hernia at time of visit, transfered to ICU after surgery. On propofol and vent . adj BMI for bi AKA is 21.9 ( normal). Current Diet Order/ Nutrition Support NPO Pertinent Medications vit C, vit D3, colace, humalog , propofol, nacl 0.9% Pertinent Labs 02/26 Glucose 108, POC 82-149 Nutritional Hx/Data Height 6 ft Height (Calculated Centimeters) 182.9 Current Weight (lbs) 130 lb Weight (Calculated Kilograms) 59.0 Weight (Calculated Grams) 82397.0 [place] Body Weight 178 Body Mass Index (BMI) 17.6 Weight Status Underweight GI Symptoms GI Symptoms None Last BM 4/4 Difficult in: None Skin Integrity/Comment: burn to left medial finger, scar to medial abdomen and left buttocks, pressure ulcer to right buttocks Current %PO Negligible < 25% Estimated Nutritional Goals BEE in Kcals: Using Current wt Calories/Kcals/Kg 30-35 Kcals Calculated 2307-1104 Protein: Using Current wt Protein g/k.2-1.4 Protein Calculated 71-83 Fluid: ml 1770-2065ml (1ml/kcal) Nutritional Problem 1. Problem Problem increased nutrition needs Etiology impaired skin integrity Signs/Symptoms: pressure ulcer, s/p surgery Malnutrition Alert Is there a minimum of two criteria No selected? Query Text:Check all the applicable criteria. A minimum of two criteria are recommended for diagnosis of either severe or non-severe malnutrition. Malnutrition Related to Morbid Obesity Malnutrition related to morbid obesity No Intervention/Recommendation Comments 1. Advance diet when medically appropriate and add Carlos BID for wound healing once diet advanced. 2. Monitor NPO status, wt, labs and skin integrity 3. F/U as high risk in 2-3 days Expected Outcomes/Goals Expected Outcomes/Goals 1. PO intake to meet at least 75% of nutritional needs. 2. Wt stability, skin to remain intact, labs to approach WNL.
[2019-03-04] MEDS: cefTRIAXone 1 GM in Sodium Chloride 0.9% 50 ML IV SCH (20:56)
--- NOTE | 2019-03-12 00:23 | Operative Report ---
DATE OF SURGERY: PREOPERATIVE DIAGNOSES: This 58-year-old patient presents with an incisional ventral hernia and paracolostomy hernia. POSTOPERATIVE DIAGNOSES: This 58-year-old patient presents with an incisional ventral hernia and paracolostomy hernia. PROCEDURES: Exploratory laparotomy, lysis of adhesions, sigmoid resection with component separation on the right side and repairing a 15 x 8 cm defect with a 10 x 15 cm 8-layer repair with 2-layer biologic graft overlying in the 500 mg powder. This was done with 2 TONI drains placed in the flap closure site and the flap closure with advancement flap procedure with 20 x 15 cm advancement closure tissue transfer. ANESTHESIA: Under general anesthesia with Dr. Marshall. ASSISTANTS: As reported on the operative note. DESCRIPTION OF PROCEDURE: The procedure was begun by doing a midline incision and staying away from the colostomy itself. We did the exploratory laparotomy and we found a bunch of adhesions in small bowel surrounding the hernia on the right lower quadrant. We removed part of the skin flap 20 x 15 cm to obtain the right anatomical configuration after we removed the old mesh in the dome of this hernia that was protruding as if the patient was bloated and once we removed that abnormal tissues, we remained with a defect that was about 15 cm long x 8 cm wide. To release the tension of a hernia defect to approximate, we performed a unilateral component separation on the right side and that allowed to diminish this separation and allow less tension and easier closure with the endogenous tissues. We placed a 10 x 15 cm 8-layer ACell as an underlay plus a 2-layer biologic graft as an onlay with 500 mg powder ACell for facilitation of healing and two size #10 TONI drain in the flaps. The closure was performed. A double stranded PDS suture was interposed with #1 Vicryl sutures and the ACell was placed as a keyhole-type pattern. In this way, we were able to close the defect with the ACell interposition and the flap closure was performed in the midline using 2-0 Vicryl and 4-0 Vicryl with stacy on the midline. We also applied a dry pressure dressing on the midline. The patient tolerated the procedure well. All instrument, sponge count, needle counts were correct. ESTIMATED BLOOD LOSS: Corresponds to the Anesthesiology note, I would say not more than 100 mL, less than 100 mL. JOB# [id number]
== END 2019-03-04 21:25 | DRG 853 ==
LOC: ER 17:24 → MSI 21:00 → TELE 02-24 18:45 → ICU 02-26 15:02 → MSI 03-02 11:39 → TELE 03-02 17:32 → MSI 03-03 13:55
PROVIDERS: ADMIT Internal Medicine; ATTEND Internal Medicine
PROC: 0WUF0KZ Supplement Abdominal Wall with Nonautologous Tissue Substitute, Open Approach (ICD-10-PCS; principal; 2019-02-26)
PROC: 0WPF0JZ Removal of Synthetic Substitute from Abdominal Wall, Open Approach (ICD-10-PCS; 2019-02-26)
PROC: 5A1945Z Respiratory Ventilation, 24-96 Consecutive Hours (ICD-10-PCS; 2019-02-26)
DX: A41.9 Sepsis, unspecified organism (principal); L89.214 Pressure ulcer of right hip, stage 4; E44.0 Moderate protein-calorie malnutrition; F20.0 Paranoid schizophrenia; K46.9 Unspecified abdominal hernia without obstruction or gangrene; K56.41 Fecal impaction; E11.9 Type 2 diabetes mellitus without complications; E78.5 Hyperlipidemia, unspecified; F32.9 Major depressive disorder, single episode, unspecified; I49.3 Ventricular premature depolarization; E87.6 Hypokalemia; J44.9 Chronic obstructive pulmonary disease, unspecified; L89.159 Pressure ulcer of sacral region, unspecified stage; Z93.3 Colostomy status; Z89.612 Acquired absence of left leg above knee; Z89.611 Acquired absence of right leg above knee
CPT/HCPCS: 36415-UA; 36600-90; 71045-TC; 74250-TC; 80048-TC; 80053-TC; 80076-TC; 82140-TC; 82150-TC; 82248-TC; 82803-TC; 82948-90; 83690-TC; 85007-TC; 85025-TC; 85610-TC; 85730-TC; 86850-TC; 86900-TC; 86901-TC; 87070; 90732; 90799; 93005; 94002; 94003; 94760; 96372; J0360; J0696; J1170; J1815; J2060; J2405; J2704; J3010; J7030; Z7610